=== PATIENT | female | born 1945 | race Caucasian/White ===

== ENCOUNTER → 2016-09-18 | Outpatient (CLI) | payer MEDICARE ==
--- NOTE | 2016-09-18 10:06 | US ---
EXAMINATION TYPE: US abdomen complete DATE OF EXAM: 09/18/2016 COMPARISON: NONE CLINICAL HISTORY: R10.10 upper Abd Pain, Cramp/spasm R25.2. Abd Pain Patient not NPO had coffee in [place]. EXAM MEASUREMENTS: Liver Length: 14.2 cm Gallbladder Wall: 0.27 cm CBD: 0.46 cm Spleen: 12.6 cm Right Kidney: 8.1 x 4.0 x 4.8 cm Left Kidney: 9.4 x 4.2 x 4.7 cm Pancreas: Tail obscured by overlying bowel gas Liver: Increased attenuation Gallbladder: wnl Evidence for sonographic Jensen's sign: No CBD: wnl Spleen: wnl Right Kidney: No hydronephrosis or masses seen Left Kidney: Cystic area seen upper pole= 2.3 x 1.9 x 2.4 cm.l Upper IVC: wnl Abd Aorta: wnl Limited views of the pancreas are unremarkable. The liver is normal in size. There is slight increased attenuation. I could not exclude some fatty in filtration. The gallbladder is unremarkable without evidence of cholelithiasis. The gallbladder wall measures 2.7 mm. The distal common hepatic duct measures 4.6 mm. There is no evidence of a sonographic Jensen's s ign. There is a hypoechoic 2.3 cm lesion in the upper pole of the left kidney. This does not meet the requ irements of simple cyst. The right kidney is normal. Visualized portions of aorta and IVC are normal. IMPRESSION: 1. I CANNOT EXCLUDE SOME FATTY INFILTRATION OF THE LIVER. 2. 2 CM LESION IN THE UPPER POLE LEFT KIDNEY DOES NOT MEET THE REQUIREMENTS OF A SIMPLE CYST. FURTHER IMAGING WITH CT OR MR WOULD BE SUGGESTED.
--- NOTE | 2016-09-19 10:46 | P.ARTDOP ---
Arterial Doppler LOWER EXTREMITY ARTERIAL DOPPLER: DATE OF SERVICE: 09/18/2016 Reason for study: Bilateral leg cramps. Doppler waveforms: Multiphasic bilaterally throughout Pulse volume recording: Normal configuration. Pressure gradients: None. Ankle-brachial indices: Greater than 1 bilaterally. Toe pressures: 114 on the right, 118 on the left Impression: normal study.
== END | disposition home or self-care (01) ==
LOC: RADUSWWP 07:55
PROVIDERS: ATTEND Family Medicine
DX: N28.9 Disorder of kidney and ureter, unspecified (principal); R25.2 Cramp and spasm; R10.10 Upper abdominal pain, unspecified
CPT/HCPCS: 76700; 93923

== ENCOUNTER → 2016-09-25 | Outpatient (CLI) | payer MEDICARE ==
--- NOTE | 2016-09-25 15:15 | NM ---
EXAMINATION TYPE: NM hepatobiliary w EF DATE OF EXAM: 09/25/2016 COMPARISON: NONE HISTORY: Upper abdominal pain TECHNIQUE: After the intravenous administration of 5.1 mCi Tc 99m Mebrofenin hepatobiliary scintigrap hy is performed. Immediate images post injection. FINDINGS: There is satisfactory initial accumulation of tracer by the liver. The gallbladder is visualized wit hin 22 minutes. The small bowel activity is noted within 12 minutes. At one hour 8 ounces of oral e nsure plus is given to mimic CCK and gallbladder ejection fraction is calculated at 89 %, above joni l. Therefore there is no scintigraphic evidence of cystic or common bile duct obstruction to suggest acute cholecystitis or gallbladder dyskinesia. IMPRESSION: HYPERCONTRACTILITY OF THE GALLBLADDER.
== END | disposition home or self-care (01) ==
LOC: RADNMMAIN 12:27
PROVIDERS: ATTEND Family Medicine
DX: K82.8 Other specified diseases of gallbladder (principal)
CPT/HCPCS: 78226; A9537

== ENCOUNTER 2016-10-31 07:25 | Day surgery (SDC) | payer MEDICARE ==
[~2016-10-31 07:25] MED LIST: LACTATED RINGERS 1,000 ML IV SCH; LIDOCAINE 1% 20 ML VIAL (10MG/ML) FOR IV START INTRADERMA PRN
[2016-10-31 07:53] VITALS: RESP 16; TEMP 97.2
[2016-10-31] MEDS ORDERED: PROPOFOL 10 MG/ML 20 ML VIAL IV ONE (08:50)
--- NOTE | 2016-10-31 08:58 | P.PCN ---
Date of Procedure: 10/31/16 Preoperative Diagnosis: Postoperative Diagnosis: Procedure(s) Performed: BRIEF HISTORY: Patient is a 71-year-old, pleasant, white female, scheduled for an upper endoscopy as part of evaluation of anemia. She does complain of occasional heartburn but denies any abdominal pain. No nausea vomiting. Her last colonoscopy in December 2014 showed a small polyp. PROCEDURE PERFORMED: Esophagogastroduodenoscopy with biopsy. PREOPERATIVE DIAGNOSIS: Anemia rule out celiac disease. IV sedation per anesthesia. PROCEDURE: After informed consent was obtained, the patient was brought into the endoscopy unit. IV sedation was administered by Anesthesia under continuous monitoring. Initially the Olympus GIF-140 video endoscope was inserted into the mouth. Esophagus intubated without any difficulty. It was gradually advanced into the stomach and duodenum and carefully examined. The bulb and the second part of the duodenum appeared normal. Biopsies were done from the duodenum to rule out celiac disease. The scope at this time was withdrawn to the stomach, adequately insufflated with air, and upon careful examination, mucosa of the antrum, mild gastritis and biopsies were done from this area. The body, cardia and the fundus appeared normal. The scope was then withdrawn into the esophagus. The GE junction was located at 39 cm from the incisors. The esophagus appeared normal. There were no erosions or ulcerations seen, however there were grade 1/2 distal esophageal varices and the patient tolerated the procedure well. IMPRESSION: 1. Mild antral gastritis. 2. Grade 1/2 mid and distal esophageal varices. RECOMMENDATIONS: The findings of this examination were discussed with the patient as well as a family. She was advised to follow with the biopsy results. She needs to be investigated for underlying chronic liver disease because of the presence of esophageal varices. Implants: Indications for Procedure: Operative Findings: Description of Procedure:
[2016-10-31 09:15] VITALS: BP 146/74; PULSE 68
== END 2016-10-31 09:38 | disposition home or self-care (01) ==
LOC: ORWHC2ENDO 07:25
PROVIDERS: ATTEND Internal Medicine Gastroenterology
DX: K29.50 Unspecified chronic gastritis without bleeding (principal); I85.00 Esophageal varices without bleeding; D64.9 Anemia, unspecified; I10 Essential (primary) hypertension; G62.9 Polyneuropathy, unspecified; F17.200 Nicotine dependence, unspecified, uncomplicated; Z79.899 Other long term (current) drug therapy
CPT/HCPCS: 88305; 88342; 43239; J2704

== ENCOUNTER → 2017-09-19 | Outpatient (CLI) | payer MEDICARE ==
--- NOTE | 2017-09-19 18:00 | US ---
EXAMINATION TYPE: US venous doppler duplex LE LT DATE OF EXAM: 09/19/2017 5:49 PM COMPARISON: NONE CLINICAL HISTORY: M79.662. Pt states left leg pain SIDE PERFORMED: Left TECHNIQUE: The lower extremity deep venous system is examined utilizing real time linear array sonog srikanth with graded compression, doppler sonography and color-flow sonography. VESSELS IMAGED: External Iliac Vein (EIV) Common Femoral Vein Deep Femoral Vein Greater Saphenous Vein * Femoral Vein Popliteal Vein Small Saphenous Vein * Proximal Calf Veins (* superficial vessels) Left Leg: Negative for DVT IMPRESSION: Negative exam. No evidence of deep venous thrombosis in the left leg.
--- NOTE | 2017-09-20 07:50 | CT ---
EXAMINATION TYPE: CT abdomen pelvis w con DATE OF EXAM: 09/19/2017 HISTORY: Right upper quadrant abdominal pain. CT DLP: 604.8mGycm Automated Exposure Control for Dose Reduction was Utilized. CONTRAST: CT scan of the abdomen and pelvis is performed with IV Contrast, patient injected with 100ml mL of Is ovue M300. COMPARISON: Complete abdominal ultrasound September 18, 2016 FINDINGS: LUNG BASES: There is calcification at level of mitral valve. There is coronary artery calcification a nd/or stent in the RCA distribution. LIVER/GB: Liver is slightly diminished in size with lobulated peripheral nodular contour, findings ar e consistent with underlying cirrhosis. Main portal vein is patent and not dilated. No surrounding as cites is present currently. PANCREAS: There is vertical linear density mid pancreatic head could reflect sutures or calcification seen best coronal image 34, similar finding is seen in the mid body just superior to the splenic vei n of uncertain etiology. Perhaps small vascular calcification. SPLEEN: Spleen is upper limits of normal in size. ADRENALS: No significant abnormality is seen. KIDNEYS: There is 4 mm calculus right kidney mid to lower pole level coronal image 56. There is 2.7 c m simple appearing cyst anteriorly upper to mid pole level left kidney image 31. BOWEL: Oral contrast reaches level of mid sigmoid colon. There is no suspicious small or large bowel dilatation. UTERUS/ADNEXA: Uterus is surgically absent or markedly atrophic. LYMPH NODES: No greater than 1cm abdominal or pelvic lymph nodes are appreciated. OSSEOUS STRUCTURES: There is moderate axial joint space loss in both hips. Osseous structures are dem ineralized. There is levoconvex scoliosis centered in the upper lumbar spine. There is multilevel fac et arthropathy in the mid to lower lumbar spine. OTHER: There is moderate to severe calcified plaque of aorta extending into branch vessels. IMPRESSION: 1. No significant acute finding is seen to account for patient's clinical symptoms. 2. Underlying cirrhosis is now present. Clinical and lab correlation advised. 3. A simple appearing 2.7 cm cyst upper pole level left kidney is confirmed on CT.
== END | disposition home or self-care (01) ==
LOC: RADCTMAIN 16:57
PROVIDERS: ATTEND Family Medicine
DX: M79.662 Pain in left lower leg (principal); R10.9 Unspecified abdominal pain
CPT/HCPCS: 82565; 84520; 93971; 74177; 36415; Q9967

== ENCOUNTER 2017-11-07 16:11 | Observation (INO) | payer MEDICARE ==
[2017-11-07 17:14] LABS: Anisocytosis Slight; HCT 23.7 % (34.0-46.0); Hypochromasia Marked; MCH 24.8 pg (25.0-35.0); MCHC 29.7 g/dL (31.0-37.0); MCV 83.4 fL (80.0-100.0); Platelet Count 109 k/uL (150-450); Poikilocytosis Slight; RBC 2.84 m/uL (3.80-5.40); RDW 17.5 % (11.5-15.5); WBC 5.3 k/uL (3.8-10.6)
[2017-11-07 17:24] LABS: Albumin 3.3 g/dL (3.5-5.0); Calcium 8.7 mg/dL (8.4-10.2); INR 1.1 (<1.2); Partial Thromboplastin Time 24.5 sec (22.0-30.0); Potassium 4.2 mmol/L (3.5-5.1); Prothrombin Time 10.9 sec (9.0-12.0); Total Bilirubin 0.4 mg/dL (0.2-1.3); Total Protein 7.2 g/dL (6.3-8.2)
[2017-11-07 18:10] LABS: Band Neutrophils % 1 %; Lymphocytes # (M) 0.64 k/uL (1.0-4.8); Monocytes # (M) 0.05 k/uL (0-1.0); Neutrophils % (M) 86 %; Nucleated Red Blood Cells 0 /100 WBC (0-0); Poikilocytosis (M) Present; Polychromasia Present; Target Cells Present; Total Cells Counted 100
[2017-11-07 18:11] LABS: Large Platelets Present
[2017-11-07] MEDS ORDERED: NALOXONE 0.4 MG/ML 1 ML VIAL IV PRN (18:24)
[2017-11-07] MEDS ORDERED: ONDANSETRON 4 MG/2 ML VIAL IVP PRN (18:24)
[2017-11-07] MEDS ORDERED: ACETAMINOPHEN TAB 325 MG TAB PO PRN (18:24)
--- NOTE | 2017-11-07 18:24 | ED ---
General Adult HPI - General Chief complaint: Recheck/Abnormal Lab/Rx Stated complaint: LOW HEMOGLOBIN Time Seen by Provider: 11/07/17 16:56 Source: patient Mode of arrival: ambulatory Limitations: no limitations - History of Present Illness Initial comments: 72e years old female stated that she had a cancer fever SHE had a surgery in [place] when today she had a call from Dr. Macias come to the ER and get some blood transfusion hemoglobin and ER was 7 she denies any headaches no chest pain or shortness of breath no abdominal pain no frequency urgency dysuria. She denies any black tarry stools and she stated she do not rectal exam - Related Data Home Medications Medication Instructions Recorded Confirmed Cholecalciferol [Vitamin D3] 5,000 unit PO DAILY 10/29/16 11/07/17 Ferrous Sulfate [Feosol] 325 mg PO DAILY 10/29/16 11/07/17 traMADol HCL [Ultram] 50 mg PO QID PRN 10/29/16 11/07/17 traZODone HCL 100 mg PO HS 10/29/16 11/07/17 Donepezil [Aricept] 10 mg PO HS 11/07/17 11/07/17 Gabapentin 1,600 mg PO HS 11/07/17 11/07/17 Gabapentin 800 mg PO QAM 11/07/17 11/07/17 Levothyroxine Sodium [Synthroid] 25 mcg PO DAILY 11/07/17 11/07/17 Omeprazole [PriLOSEC] 40 mg PO DAILY 11/07/17 11/07/17 Allergies Allergy/AdvReac Type Severity Reaction Status Date / Time No Known Allergies Allergy Verified 11/07/17 17:21 Review of Systems ROS Statement: Those systems with pertinent positive or pertinent negative responses have been documented in the HPI. ROS Other: All systems not noted in ROS Statement are negative. Past Medical History Past Medical History: Cancer, CVA/TIA, Diabetes Mellitus, GERD/Reflux, Hyperlipidemia, Hypertension, Osteoarthritis (OA) Additional Past Medical History / Comment(s): hx. uterine cancer, chemo 6-7 mos. ago, TIA several yrs. ago-forgetful, neuropathy feet & legs & hands, diet controlled diabetic History of Any Multi-Drug Resistant Organisms: None Reported Past Surgical History: Hysterectomy, Tonsillectomy Additional Past Surgical History / Comment(s): hysterectomy Past Anesthesia/Blood Transfusion Reactions: No Reported Reaction Past Psychological History: Anxiety, Depression Smoking Status: Current some day smoker General Exam - General Exam Comments Initial Comments: General: The patient is awake and alert, in no distress, and does not appear acutely ill. Skin: Skin is warm and dry and no rashes or lesions are noted. Eye: Pupils are equal, round and reactive to light, extra-ocular movements are intact; there is normal conjunctiva bilaterally. Ears, nose, mouth and throat: There are moist mucous membranes and no oral lesions. Neck: The neck is supple, there is no tenderness or JVD. Cardiovascular: There is a regular rate and rhythm. No murmur, rub or gallop is appreciated. Respiratory: To auscultation bilateral, no wheezing no rhonchi no distress respiratory cummins noticed Gastrointestinal: Soft, non-distended, non-tender abdomen without masses or organomegaly noted. There is no rebound or guarding present. Bowel sounds are unremarkable. She refused the rectal exam Back: There is no tenderness to palpation in the midline. There is no obvious deformity. Musculoskeletal: Normal ROM, no tenderness, There is no pedal edema. There is no calf tenderness or swelling. No cords were appreciated. Neurological: CN II-XII intact, Cranial nerves III through XII are intact. There are no obvious motor or sensory deficits. Coordination appears grossly intact. Speech is normal. Psychiatric: Cooperative, appropriate mood & affect, normal judgment. Limitations: no limitations Course Vital Signs 11/07/17 16:14 Temperature 98.6 F Pulse Rate 94 Respiratory 18 Rate Blood Pressure 140/51 O2 Sat by Pulse 96 Oximetry Hemoglobin is 7 chemistries are normal she be getting Protonix 40 mg twice a day Dr. Walker be consulted Medical Decision Making - Lab Data Result diagrams: 11/07/17 16:57 11/07/17 17:00 Lab Results 11/07/17 11/07/17 11/07/17 Range/Units 16:57 17:00 17:00 WBC 5.3 (3.8-10.6) k/uL RBC 2.84 L (3.80-5.40) m/uL Hgb 7.0 L* (11.4-16.0) gm/dL Hct 23.7 L (34.0-46.0) % MCV 83.4 (80.0-100.0) fL MCH 24.8 L (25.0-35.0) pg MCHC 29.7 L (31.0-37.0) g/dL RDW 17.5 H (11.5-15.5) % Plt Count 109 L (150-450) k/uL Neutrophils % (Manual) 86 % Band Neutrophils % 1 % Lymphocytes % (Manual) 12 % Monocytes % (Manual) 1 % Neutrophils # (Manual) 4.60 (1.3-7.7) k/uL Lymphocytes # (Manual) 0.64 L (1.0-4.8) k/uL Monocytes # (Manual) 0.05 (0-1.0) k/uL Nucleated RBCs 0 (0-0) /100 WBC Manual Slide Review Performed Large Platelets Present Polychromasia Present Hypochromasia Marked Poikilocytosis Slight Poikilocytosis (manual Present Anisocytosis Slight Target Cells Present PT 10.9 (9.0-12.0) sec INR 1.1 (<1.2) APTT 24.5 (22.0-30.0) sec Sodium 140 (137-145) mmol/L Potassium 4.2 (3.5-5.1) mmol/L Chloride 111 H (98-107) mmol/L Carbon Dioxide 21 L (22-30) mmol/L Anion Gap 8 mmol/L BUN 12 (7-17) mg/dL Creatinine 0.90 (0.52-1.04) mg/dL Est GFR (CKD-EPI)AfAm 73 (>60 ml/min/1.73 sqM) Est GFR (CKD-EPI)NonAf 64 (>60 ml/min/1.73 sqM) Glucose 117 H (74-99) mg/dL Calcium 8.7 (8.4-10.2) mg/dL Total Bilirubin 0.4 (0.2-1.3) mg/dL AST 21 (14-36) U/L ALT 20 (9-52) U/L Alkaline Phosphatase 79 (38-126) U/L Total Protein 7.2 (6.3-8.2) g/dL Albumin 3.3 L (3.5-5.0) g/dL Blood Type Blood Type Recheck Antibody Screen Spec Expiration Date 11/07/17 Range/Units 17:00 WBC (3.8-10.6) k/uL RBC (3.80-5.40) m/uL Hgb (11.4-16.0) gm/dL Hct (34.0-46.0) % MCV (80.0-100.0) fL MCH (25.0-35.0) pg MCHC (31.0-37.0) g/dL RDW (11.5-15.5) % Plt Count (150-450) k/uL Neutrophils % (Manual) % Band Neutrophils % % Lymphocytes % (Manual) % Monocytes % (Manual) % Neutrophils # (Manual) (1.3-7.7) k/uL Lymphocytes # (Manual) (1.0-4.8) k/uL Monocytes # (Manual) (0-1.0) k/uL Nucleated RBCs (0-0) /100 WBC Manual Slide Review Large Platelets Polychromasia Hypochromasia Poikilocytosis Poikilocytosis (manual Anisocytosis Target Cells PT (9.0-12.0) sec INR (<1.2) APTT (22.0-30.0) sec Sodium (137-145) mmol/L Potassium (3.5-5.1) mmol/L Chloride (98-107) mmol/L Carbon Dioxide (22-30) mmol/L Anion Gap mmol/L BUN (7-17) mg/dL Creatinine (0.52-1.04) mg/dL Est GFR (CKD-EPI)AfAm (>60 ml/min/1.73 sqM) Est GFR (CKD-EPI)NonAf (>60 ml/min/1.73 sqM) Glucose (74-99) mg/dL Calcium (8.4-10.2) mg/dL Total Bilirubin (0.2-1.3) mg/dL AST (14-36) U/L ALT (9-52) U/L Alkaline Phosphatase (38-126) U/L Total Protein (6.3-8.2) g/dL Albumin (3.5-5.0) g/dL Blood Type O Positive Blood Type Recheck No Antibody Screen NEGATIVE Spec Expiration Date 11/10/2017 - 230 Disposition Clinical Impression: Anemia Disposition: ADMITTED IP TO THIS [facility] Condition: Good Referrals: Kiersten Macias MD [Primary Care Provider] - 1-2 days
[2017-11-07] MEDS ORDERED: traMADol 50 MG TAB PO PRN (18:28)
[2017-11-07 20:49] VITALS: BMI 24.7
[2017-11-07] MEDS ORDERED: traZODone HCL 100 MG TAB PO SCH (21:00)
[2017-11-07] MEDS ORDERED: GABAPENTIN 400 MG CAP PO SCH (21:00)
[2017-11-07] MEDS ORDERED: DONEPEZIL 10 MG TAB PO SCH (21:00)
[2017-11-07] MEDS: SODIUM CHLORIDE 0.9% 1,000 ML IV SCH (21:34)
[2017-11-07] MEDS: NICOTINE 21MG/24HR PATCH TRANSDERM SCH (21:34)
[2017-11-07] MEDS: PANTOPRAZOLE 40 MG/10 ML VIAL IV SCH (23:32)
[2017-11-08] MEDS ORDERED: LEVOTHYROXINE 25 MCG TAB PO SCH (06:30)
[2017-11-08 07:26] LABS: Anisocytosis Slight; Hypochromasia Marked; MCH 27.1 pg (25.0-35.0); MCHC 31.7 g/dL (31.0-37.0); MCV 85.5 fL (80.0-100.0); Mean Platelet Volume 10.2; Platelet Count 74 k/uL (150-450); Poikilocytosis Marked; RBC 2.28 m/uL (3.80-5.40); RDW 16.9 % (11.5-15.5); WBC 2.9 k/uL (3.8-10.6)
[2017-11-08 07:27] LABS: Albumin 2.6 g/dL (3.5-5.0); Calcium 8.3 mg/dL (8.4-10.2); Potassium 4.2 mmol/L (3.5-5.1); Total Bilirubin 0.7 mg/dL (0.2-1.3); Total Protein 5.8 g/dL (6.3-8.2)
[2017-11-08 07:28] LABS: HGB 6.2 gm/dL (11.4-16.0)
[2017-11-08 07:30] LABS: HCT 19.5 % (34.0-46.0)
[2017-11-08 08:27] LABS: Lymphocytes # (M) 0.67 k/uL (1.0-4.8); Monocytes # (M) 0.26 k/uL (0-1.0); Neutrophils # (M) 1.97 k/uL (1.3-7.7); Neutrophils % (M) 68 %; Nucleated Red Blood Cells 0 /100 WBC (0-0); Total Cells Counted 100
[2017-11-08 08:30] LABS: Polychromasia Present
[2017-11-08] MEDS: PANTOPRAZOLE 40 MG/10 ML VIAL IV SCH (08:44)
[2017-11-08] MEDS: NICOTINE 21MG/24HR PATCH TRANSDERM SCH (08:45)
[2017-11-08] MEDS: SODIUM CHLORIDE 0.9% 1,000 ML IV SCH (08:45)
[2017-11-08] MEDS ORDERED: CHOLECALCIFEROL 1,000 UNIT TAB PO SCH (09:00)
[2017-11-08] MEDS ORDERED: FERROUS SULFATE 325 MG TAB PO SCH (09:00)
[2017-11-08] MEDS ORDERED: GABAPENTIN 400 MG CAP PO SCH (09:00)
[2017-11-08] MEDS ORDERED: NON-FORMULARY DRUG (Omeprazole 40 MG) PO SCH (09:00)
--- NOTE | 2017-11-08 09:55 | P.CONS ---
History of Present Illness - Reason for Consult Consult date: 11/08/17 anemia - History of Present Illness 72-year-old female with a history of uterine carcinoma about 4-5 years ago status post chemoradiation, remote EtOH abuse in her 20s no active drinking, cirrhosis, esophageal varices, and anemia. Patient has been feeling more weak fatigue x 1 month without chest pain or overt bleeding; denies hematemesis hematochezia or melena. No fevers. Denies abdominal pain. Admission hemoglobin 7 presently 6.2. MCV 83. Platelet 109 presently 74. INR 1.1. BUN 12. Creatinine 0.9. LFTs normal. 2 units of blood ordered. Review of Systems Constitutional: Denies fever, chills, sweats, weight gain, or loss. Fatigue. HEENT: Negative for migraines, blurred vision or loss, earaches, drainage, tinnitus, oral mucosal lesions, dysphagia, or odynophagia. CARDIAC: Negative for chest pain, arrhythmias, or palpitation. RESPIRATORY: Negative for shortness of breath, hemoptysis, cough, or sputum production. GI: See HPI for pertinent findings. : Negative for hematuria, urgency, frequency, polyuria, or dysuria. GYNc: Negative vaginal discharge. MUSCULOSKELETAL: Negative for muscle aches, swelling, arthritis, and arthralgias. NEUROLOGIC: Negative for stroke or TIA. ENDOCRINE: Negative for thyroid problems. SKIN: Negative for rash or itching. PSYCHIATRIC: Negative history for depression and anxiety Past Medical History Past Medical History: Cancer, CVA/TIA, Diabetes Mellitus, GERD/Reflux, Hyperlipidemia, Hypertension, Osteoarthritis (OA) Additional Past Medical History / Comment(s): hx. uterine cancer, chemo 4 years ago, TIA several yrs. ago-forgetful, neuropathy feet & legs & hands, diet controlled diabetic History of Any Multi-Drug Resistant Organisms: None Reported Past Surgical History: Hysterectomy, Tonsillectomy Additional Past Surgical History / Comment(s): hysterectomy Past Anesthesia/Blood Transfusion Reactions: No Reported Reaction Past Psychological History: Anxiety, Depression Smoking Status: Current some day smoker Past Alcohol Use History: None Reported Past Drug Use History: None Reported - Past Family History Mother Family Medical History: Cancer Father Family Medical History: Cancer Brother(s) Family Medical History: Cancer Medications and Allergies Home Medications Medication Instructions Recorded Confirmed Type Cholecalciferol [Vitamin D3] 5,000 unit PO DAILY 10/29/16 11/07/17 History Ferrous Sulfate [Feosol] 325 mg PO DAILY 10/29/16 11/07/17 History traMADol HCL [Ultram] 50 mg PO QID PRN 10/29/16 11/07/17 History traZODone HCL 100 mg PO HS 10/29/16 11/07/17 History Donepezil [Aricept] 10 mg PO HS 11/07/17 11/07/17 History Gabapentin 1,600 mg PO HS 11/07/17 11/07/17 History Gabapentin 800 mg PO QAM 11/07/17 11/07/17 History Levothyroxine Sodium [Synthroid] 25 mcg PO DAILY 11/07/17 11/07/17 History Omeprazole [PriLOSEC] 40 mg PO DAILY 11/07/17 11/07/17 History Allergies Allergy/AdvReac Type Severity Reaction Status Date / Time latex AdvReac Unknown Verified 11/07/17 23:13 Physical Exam Vitals: Vital Signs Temp Pulse Pulse Resp BP BP Pulse Ox 11/08/17 09:16 97.9 F 76 18 157/72 96 11/08/17 09:06 98.1 F 76 16 148/71 97 11/08/17 07:26 97.7 F 86 16 160/63 99 11/08/17 07:09 97 11/08/17 00:23 98.4 F 71 18 133/75 97 11/07/17 23:39 98.7 F 77 16 136/72 92 L 11/07/17 21:15 98.3 F 79 18 153/52 94 L 11/07/17 20:45 97.8 F 77 18 132/68 93 L 11/07/17 20:37 97.1 F L 82 16 151/68 98 11/07/17 20:35 98.8 F 77 18 126/55 11/07/17 19:15 98.4 F 87 15 147/66 98 11/07/17 16:14 98.6 F 94 18 140/51 96 Intake and Output 11/07/17 11/08/17 11/08/17 22:59 06:59 14:59 Intake Total 370 910 240 Balance 370 910 240 Intake: IV 250 blood 250 Intake, IV Titration 600 Amount Sodium Chloride 0.9% 1, 600 000 ml @ 75 mls/hr IV . [id number] [facility] Rx#:[id number] Oral 120 240 Blood Product 0 310 0 Rc As-1 Unit 0 [id number] Rc Pheresis 2 As3 Unit 0 310 [id number] Other: Voiding Method Toilet # Voids 2 1 Weight 65.317 kg General appearance: The patient is alert, oriented, in no acute distress. HET: Head is normocephalic and atraumatic. Pupils are equal and reactive. Oropharynx is clear without lesions. Neck: Supple without lymphadenopathy. Trachea midline. Heart: S1 S2. Regular rate and rhythm. Lungs: No crackles or wheezes are heard. Abdomen: Soft, nontender, nondistended with bowel sounds. No peritoneal signs. No palpable organomegaly or masses. Extremities: Normal skin color and turgor. No cyanosis, rash, ulceration, clubbing, or edema. Radial and pedal pulses are 2/4 bilaterally. Neurological: No focal deficits. Strength and sensation are grossly intact. Results CBC & Chem 7: 11/08/17 06:31 11/08/17 06:31 Labs: Abnormal Lab Results - Last 24 Hours (Table) 11/07/17 11/07/17 11/07/17 Range/Units 16:57 17:00 17:00 WBC (3.8-10.6) k/uL RBC 2.84 L (3.80-5.40) m/uL Hgb 7.0 L* (11.4-16.0) gm/dL Hct 23.7 L (34.0-46.0) % MCH 24.8 L (25.0-35.0) pg MCHC 29.7 L (31.0-37.0) g/dL RDW 17.5 H (11.5-15.5) % Plt Count 109 L (150-450) k/uL Lymphocytes # (Manual) 0.64 L (1.0-4.8) k/uL Chloride 111 H (98-107) mmol/L Carbon Dioxide 21 L (22-30) mmol/L Glucose 117 H (74-99) mg/dL Calcium (8.4-10.2) mg/dL Total Protein (6.3-8.2) g/dL Albumin 3.3 L (3.5-5.0) g/dL Crossmatch See Detail 11/08/17 11/08/17 Range/Units 06:31 06:31 WBC 2.9 L (3.8-10.6) k/uL RBC 2.28 L (3.80-5.40) m/uL Hgb 6.2 L* (11.4-16.0) gm/dL Hct 19.5 L* (34.0-46.0) % MCH (25.0-35.0) pg MCHC (31.0-37.0) g/dL RDW 16.9 H (11.5-15.5) % Plt Count 74 L (150-450) k/uL Lymphocytes # (Manual) 0.67 L (1.0-4.8) k/uL Chloride 113 H (98-107) mmol/L Carbon Dioxide (22-30) mmol/L Glucose (74-99) mg/dL Calcium 8.3 L (8.4-10.2) mg/dL Total Protein 5.8 L (6.3-8.2) g/dL Albumin 2.6 L (3.5-5.0) g/dL Crossmatch Assessment and Plan (1) Anemia Narrative/Plan: Possible component of acute blood loss anemia Current Visit: Yes Status: Acute Code(s): D64.9 - ANEMIA, UNSPECIFIED SNOMED Code(s): 793990579 (2) Liver cirrhosis Current Visit: Yes Status: Acute Code(s): K74.60 - UNSPECIFIED CIRRHOSIS OF LIVER SNOMED Code(s): 60463878 (3) Esophageal varices determined by endoscopy Current Visit: Yes Status: Acute Code(s): I85.00 - ESOPHAGEAL VARICES WITHOUT BLEEDING SNOMED Code(s): 11019535 (4) Thrombocytopenia Current Visit: Yes Status: Acute Code(s): D69.6 - THROMBOCYTOPENIA, UNSPECIFIED SNOMED Code(s): 868262616 Plan: 1. Inpatient EGD colonoscopy discussed however patient desires to have it performed as an outpatient and only with Dr. Calloway; Dr. Calloway is not available at this time. We'll proceed with EGD colonoscopy Saturday next week with Dr. Calloway if agreeable with attending service. 2. Iron indices. 3. CBC monitoring. We'll follow with you. Thank you for this kind referral and the opportunity to participate in the care of your patient. This consultation was discussed with Dr. Oconnell. The impression and plan of care have been directed as dictated.
[2017-11-08 14:12] VITALS: BP 148/68; PULSE 81; RESP 16; TEMP 98.4
--- NOTE | 2017-11-08 14:17 | P.HPIM ---
History of Present Illness H&P Date: 11/08/17 (This document was also both his H&P and discharge summary) 72 years old female patient of Dr. Macias with past medical history of uterine carcinoma diagnosed for 5 years ago status post chemoradiation, history of remote alcohol abuse in her 20s no active drinking, history of alcohol-induced cirrhosis, esophageal varices and anemia. Patient was seen as outpatient on Saturday by Dr. Macias who did blood work with her hemoglobin came back as 5.6. Patient was brought back to the clinic and hemoglobin was redrawn hemoglobin on admission was 7. Patient denies any history of dark tarry stool, any hematemesis, hematochezia. Patient denies any dizziness, palpitation or abdominal pain. Patient states she is chronically anemic and feels fatigued but denies any other symptoms. She states she just came to the ER for transfusion but was admitted for further workup. She has had endoscopy 1 year ago had colonoscopy a few years ago by Dr. Walker and has a follow-up appointment with her next Saturday for an endoscopy. Labs obtained suggest a hemoglobin of 7 on admission hematocrit 23.7, platelet 109, INR 1.1, AST ALT within normal limits, alkaline phosphatase 70. Patient received 1 unit of PRBC in the ER. Repeat hemoglobin this morning is 6.2 status post 1 unit of PRBC this morning. Repeat hemoglobin pending. Patient would like to follow with Dr. Walker as outpatient and would like to be discharged as she is asymptomatic. Review of Systems Constitutional: Denies chills, Denies fever, Denies lethargy, Denies malaise, Denies poor appetite, Denies weakness, Denies weight loss Eyes: denies decreased vision, denies diplopia, denies discharge, denies pain Ears: deny: decreased hearing Ears, nose, mouth and throat: Denies dental pain, Denies headache, Denies nasal discharge, Denies nose pain Cardiovascular: Denies chest pain, Denies decreased exercise tolerance, Denies edema, Denies high blood pressure, Denies irregular heart beat, Denies palpitations, Denies paroxysmal nocturnal dyspnea, Denies rapid heart beat, Denies shortness of breath Respiratory: Denies congestion, Denies cough, Denies cough with sputum, Denies dyspnea, Denies home oxygen, Denies wheezing Gastrointestinal: Denies abdominal pain, Denies change in bowel habits, Denies coffee ground emesis, Denies early satiety, Denies excessive gas, Denies heartburn, Denies hematemesis, Denies hematochezia, Denies loss of appetite, Denies nausea, Denies vomiting Genitourinary: Denies dysuria, Denies flank pain, Denies kidney stones, Denies menorrhagia, Denies urgency, Denies urinary frequency Musculoskeletal: Denies gait dysfunction, Denies limitation of motion, Denies morning stiffness, Denies muscle cramps Integumentary: Denies rash, Denies wounds, Denies brittle nails, Denies change in hair/nails, Denies darkening of skin Neurological: Denies balance difficulties, Denies change in speech, Denies double vision, Denies gait dysfunction, Denies loss of vision, Denies motor disturbance, Denies numbness, Denies paralysis, Denies paresthesias, Denies seizures Psychiatric: Denies anxiety, Denies depression Endocrine: Denies excessive sweating, Denies excessive thirst, Denies high blood sugars, Denies palpitations Hematologic/Lymphatic: Denies easy bruising, Denies lymphadenopathy Past Medical History Past Medical History: Cancer, CVA/TIA, Diabetes Mellitus, GERD/Reflux, Hyperlipidemia, Hypertension, Osteoarthritis (OA) Additional Past Medical History / Comment(s): hx. uterine cancer, chemo 4 years ago, TIA several yrs. ago-forgetful, neuropathy feet & legs & hands, diet controlled diabetic History of Any Multi-Drug Resistant Organisms: None Reported Past Surgical History: Hysterectomy, Tonsillectomy Additional Past Surgical History / Comment(s): hysterectomy Past Anesthesia/Blood Transfusion Reactions: No Reported Reaction Past Psychological History: Anxiety, Depression Smoking Status: Current some day smoker Past Alcohol Use History: None Reported Past Drug Use History: None Reported - Past Family History Mother Family Medical History: Cancer Father Family Medical History: Cancer Brother(s) Family Medical History: Cancer Medications and Allergies Home Medications Medication Instructions Recorded Confirmed Type Cholecalciferol [Vitamin D3] 5,000 unit PO DAILY 10/29/16 11/07/17 History Ferrous Sulfate [Feosol] 325 mg PO DAILY 10/29/16 11/07/17 History traMADol HCL [Ultram] 50 mg PO QID PRN 10/29/16 11/07/17 History traZODone HCL 100 mg PO HS 10/29/16 11/07/17 History Donepezil [Aricept] 10 mg PO HS 11/07/17 11/07/17 History Gabapentin 1,600 mg PO HS 11/07/17 11/07/17 History Gabapentin 800 mg PO QA 11/07/17 11/07/17 History Levothyroxine Sodium [Synthroid] 25 mcg PO DAILY 11/07/17 11/07/17 History Omeprazole [PriLOSEC] 40 mg PO DAILY 11/07/17 11/07/17 History Carvedilol [Coreg] 6.25 mg PO BID #60 tablet 11/08/17 Rx Nicotine 21Mg/24Hr Patch [Habitrol] 1 patch TRANSDERM DAILY #30 patch 11/08/17 Rx Allergies Allergy/AdvReac Type Severity Reaction Status Date / Time latex AdvReac Unknown Verified 11/07/17 23:13 Physical Exam Vitals: Vital Signs Temp Pulse Pulse Resp BP BP Pulse Ox 11/08/17 12:59 97.5 F L 72 18 171/65 96 11/08/17 09:46 97.8 F 76 16 145/49 98 11/08/17 09:16 97.9 F 76 18 157/72 96 11/08/17 09:06 98.1 F 76 16 148/71 97 11/08/17 07:26 97.7 F 86 16 160/63 99 11/08/17 07:09 97 11/08/17 00:23 98.4 F 71 18 133/75 97 11/07/17 23:39 98.7 F 77 16 136/72 92 L 11/07/17 21:15 98.3 F 79 18 153/52 94 L 11/07/17 20:45 97.8 F 77 18 132/68 93 L 11/07/17 20:37 97.1 F L 82 16 151/68 98 11/07/17 20:35 98.8 F 77 18 126/55 11/07/17 19:15 98.4 F 87 15 147/66 98 11/07/17 16:14 98.6 F 94 18 140/51 96 Intake and Output 11/07/17 11/08/17 11/08/17 22:59 06:59 14:59 Intake Total 370 910 790 Balance 370 910 790 Intake: IV 250 blood 250 Intake, IV Titration 600 Amount Sodium Chloride 0.9% 1, 600 000 ml @ 75 mls/hr IV . [id number] [facility] Rx#:[id number] Oral 120 480 Blood Product 0 310 310 Rc As-1 Unit 310 [id number] Rc Pheresis 2 As3 Unit 0 310 [id number] Other: Voiding Method Toilet # Voids 2 1 Weight 65.317 kg - Constitutional General appearance: cooperative, no acute distress, obese - EENT Eyes: anicteric sclerae, PERRLA, normal appearance ENT: hearing grossly normal - Neck Neck: no lymphadenopathy, normal ROM, no other, no rigidity, no stridor, no thyromegaly - Respiratory Respiratory: bilateral: CTA, negative: diminished, dullness, rales, rhonchi - Cardiovascular Rhythm: regular Heart sounds: normal: S1, S2 Abnormal Heart Sounds: no systolic murmur, no diastolic murmur, no rub, no S3 Gallop, no S4 Gallop, no click, no other - Gastrointestinal General gastrointestinal: normal bowel sounds, soft nontender in all quadrants - Integumentary Integumentary: no rash - Neurologic Neurologic: CNII-XII intact - Musculoskeletal Musculoskeletal: gait normal, strength equal bilaterally - Psychiatric Psychiatric: A&O x's 3, appropriate affect Results CBC & Chem 7: 11/08/17 06:31 11/08/17 06:31 Labs: Abnormal Lab Results - Last 24 Hours (Table) 11/07/17 11/07/17 11/07/17 Range/Units 16:57 17:00 17:00 WBC (3.8-10.6) k/uL RBC 2.84 L (3.80-5.40) m/uL Hgb 7.0 L* (11.4-16.0) gm/dL Hct 23.7 L (34.0-46.0) % MCH 24.8 L (25.0-35.0) pg MCHC 29.7 L (31.0-37.0) g/dL RDW 17.5 H (11.5-15.5) % Plt Count 109 L (150-450) k/uL Lymphocytes # (Manual) 0.64 L (1.0-4.8) k/uL Chloride 111 H (98-107) mmol/L Carbon Dioxide 21 L (22-30) mmol/L Glucose 117 H (74-99) mg/dL Calcium (8.4-10.2) mg/dL Total Protein (6.3-8.2) g/dL Albumin 3.3 L (3.5-5.0) g/dL Crossmatch See Detail 11/08/17 11/08/17 Range/Units 06:31 06:31 WBC 2.9 L (3.8-10.6) k/uL RBC 2.28 L (3.80-5.40) m/uL Hgb 6.2 L* (11.4-16.0) gm/dL Hct 19.5 L* (34.0-46.0) % MCH (25.0-35.0) pg MCHC (31.0-37.0) g/dL RDW 16.9 H (11.5-15.5) % Plt Count 74 L (150-450) k/uL Lymphocytes # (Manual) 0.67 L (1.0-4.8) k/uL Chloride 113 H (98-107) mmol/L Carbon Dioxide (22-30) mmol/L Glucose (74-99) mg/dL Calcium 8.3 L (8.4-10.2) mg/dL Total Protein 5.8 L (6.3-8.2) g/dL Albumin 2.6 L (3.5-5.0) g/dL Crossmatch Thrombosis Risk Factor Assmnt - DVT/VTE Prophylaxis DVT/VTE Prophylaxis: Mechanical Prophylaxis ordered Assessment and Plan Plan: #1 acute GI bleed likely secondary to esophageal varices and cirrhosis. Status post 2 units of PRBC. Repeat hemoglobin pending. Last endoscopy 1 year ago and was found to have large masses. Patient initiated on Coreg for masses prophylaxis. Currently asymptomatic with no episodes of hematemesis. Endoscopy on Saturday with Dr. Walker scheduled. #2 cirrhosis likely alcohol induced. No ascitis no hematemesis but was found to have varices. No encephalopathy on examination #3 acute on chronic normocytic anemia. Acute anemia likely secondary to blood loss from esophageal varices and also could not be ruled out. We'll start patient on Protonix 40 mg by mouth daily. Coreg 6.25 milligrams twice a day for prophylaxis. Continue ferrous sulfate 325 mg by mouth daily Will follow with Dr. Macias as outpatient for repeat transfusion if needed. #4 history of uterine cancer status post chemoradiation in remission #5 history of hyperlipidemia with diet-controlled #6 History of hypertension initiated on Coreg 6.25 twice a day #7 History of diabetes diet-controlled #8 Peripheral neuropathy from chemotherapy on gabapentin 800 mg every morning 1600 mg at bedtime #9 DVT prophylaxis with mechanical SCDs due to GI bleed #10 code status no code #11 disposition patient is discharged today with home with homecare CC a copy of discharge to Dr. Macias
[2017-11-08 14:18] LABS: Anisocytosis Slight; HCT 24.6 % (34.0-46.0); HGB 7.5 gm/dL (11.4-16.0); Hypochromasia Marked; MCH 25.9 pg (25.0-35.0); MCHC 30.5 g/dL (31.0-37.0); Mean Platelet Volume 12.4; Poikilocytosis Marked; RBC 2.89 m/uL (3.80-5.40); RDW 16.9 % (11.5-15.5); WBC 4.3 k/uL (3.8-10.6)
[2017-11-08 14:28] LABS: Platelet Count 71 k/uL (150-450)
[2017-11-08 15:13] LABS: Lymphocytes # (M) 0.65 k/uL (1.0-4.8); Monocytes # (M) 0.26 k/uL (0-1.0); Neutrophils % (M) 79 %; Nucleated Red Blood Cells 0 /100 WBC (0-0); Total Cells Counted 100
[2017-11-08 15:14] LABS: Mixed Population RBC Present
[2017-11-08 18:20] LABS: Iron Saturation 23.01 (12.00-45.00)
== END 2017-11-08 15:42 | disposition home or self-care (01) ==
LOC: EC 16:11 → 3SUR 18:24
PROVIDERS: ADMIT Internal Medicine; ATTEND Internal Medicine
DX: K92.2 Gastrointestinal hemorrhage, unspecified (principal); K74.60 Unspecified cirrhosis of liver; I85.01 Esophageal varices with bleeding; D50.0 Iron deficiency anemia secondary to blood loss (chronic); Z92.3 Personal history of irradiation; Z85.42 Personal history of malignant neoplasm of other parts of uterus; K21.9 Gastro-esophageal reflux disease without esophagitis; E78.5 Hyperlipidemia, unspecified; I10 Essential (primary) hypertension; D69.6 Thrombocytopenia, unspecified; E11.40 Type 2 diabetes mellitus with diabetic neuropathy, unspecified; G62.0 Drug-induced polyneuropathy; T45.1X5A Adverse effect of antineoplastic and immunosuppressive drugs, initial encounter; F41.9 Anxiety disorder, unspecified; F32.9 Major depressive disorder, single episode, unspecified; F17.200 Nicotine dependence, unspecified, uncomplicated; M19.90 Unspecified osteoarthritis, unspecified site; E66.9 Obesity, unspecified; Z68.24 Body mass index [BMI] 24.0-24.9, adult; Z86.73 Personal history of transient ischemic attack (TIA), and cerebral infarction without residual deficits; Z80.9 Family history of malignant neoplasm, unspecified; Z79.899 Other long term (current) drug therapy; Z79.890 Hormone replacement therapy; Z91.040 Latex allergy status; Z66 Do not resuscitate
CPT/HCPCS: 99284 ×2; 36430 ×2; 96376; 96374; 36415; 94760; 86900; 86901; 80053 ×2; 82728; 83540; 83550; 85025 ×2; 85610; 85730; 86850; 86920; 82105; G0378 ×2; P9016 ×2; S4990 ×2; C9113 ×2

== ENCOUNTER 2017-11-29 07:42 | Day surgery (SDC) | payer MEDICARE ==
[2017-11-26 14:49] VITALS: BMI 26.3
[~2017-11-29 07:42] MED LIST changes: -LIDOCAINE 1% 20 ML VIAL (10MG/ML) FOR IV START INTRADERMA PRN
[2017-11-29 08:10] VITALS: TEMP 98
[2017-11-29] MEDS ORDERED: LIDOCAINE 1% 20 ML VIAL (10MG/ML) FOR IV START INTRADERMA ONE (08:14)
[2017-11-29] MEDS ORDERED: PROPOFOL 10 MG/ML 20 ML VIAL IV ONE (08:40)
--- NOTE | 2017-11-29 09:11 | P.PCN ---
Date of Procedure: 11/29/17 Procedure(s) Performed: Brief history: Patient is a pleasant 72-year-old white female, scheduled for an elective upper endoscopy as well as colonoscopy as a part of evaluation of iron deficiency anemia. Patient has history of alcoholic cirrhosis of the liver diagnosed a few years ago. Procedure performed: Esophagogastroduodenoscopy with biopsy Colonoscopy with snare polypectomy Preoperative diagnosis: Iron deficiency anemia History of liver cirrhosis Anesthesia: MAC Procedure: After informed consent was obtained from the patient was brought into the endoscopy unit and IV sedation was administered by anesthesia under continuous monitoring. Initially upper endoscopy was done. The Olympus GF 160 video endoscope was inserted inserted into the mouth and esophagus intubated without any difficulty and was gradually advanced into the stomach and duodenum and carefully examined. The bulb and second part of the duodenum appeared normal. Biopsies were done from the duodenum to rule out celiac disease. The scope was then withdrawn into the stomach adequately insufflated with air and upon careful examination the antrum had mild gastritis and biopsies were done from this area. The body, cardia and fundus appeared normal. The scope was then withdrawn into the esophagus. The GE junction was located at 40 cm to the incisors. It appeared regular with no erythema erosions or ulcerations. Small distal esophageal varices seen. Rest of the esophagus appeared normal. Patient tolerated the procedure well. At this time the patient continued to remain sedation. Initial digital rectal examination was normal. Olympus CF 160 video colonoscope was then inserted into the rectum and gradually advanced to the cecum without any difficulty. Careful examination was performed as the scope was gradually being withdrawn. The prep was excellent. The cecum, ascending colon appeared normal. In the transverse colon there was a 1 cm polyp removed by snare polypectomy. Rest of the, transverse colon, descending colon, sigmoid colon and rectum appeared normal. Retroflexion was performed in the rectum and no lesions were noted. Patient tolerated the procedure well. Impression: 1. Upper endoscopy revealed small esophageal varices and mild gastritis 2. Colonoscopy revealed 1 cm transverse colon polyp status post snare polypectomy. Rest of the colon appeared normal. Recommendations: Findings of this examination were discussed with the patient as well as her family. She was advised to follow with the biopsy results. If the biopsy shows a tubular adenoma, she can have a repeat colonoscopy in 3-5 years
[2017-11-29 09:15] VITALS: RESP 16
[2017-11-29 09:31] VITALS: BP 161/69; PULSE 80
== END 2017-11-29 09:52 | disposition home or self-care (01) ==
LOC: ORWHC2ENDO 07:42
PROVIDERS: ATTEND Internal Medicine Gastroenterology
DX: K29.50 Unspecified chronic gastritis without bleeding (principal); D12.3 Benign neoplasm of transverse colon; D50.9 Iron deficiency anemia, unspecified; K74.60 Unspecified cirrhosis of liver; I85.00 Esophageal varices without bleeding; F17.210 Nicotine dependence, cigarettes, uncomplicated; I10 Essential (primary) hypertension; Z79.899 Other long term (current) drug therapy
CPT/HCPCS: 43239; 45385; 88305

== ENCOUNTER → 2019-01-12 | Outpatient (CLI) | payer MEDICARE ==
[2019-01-12 14:32] LABS: Anisocytosis Moderate; HGB 7.1 gm/dL (11.4-16.0); Hypochromasia Marked; MCH 29.6 pg (25.0-35.0); MCHC 29.6 g/dL (31.0-37.0); Macrocytosis Moderate; Mean Platelet Volume 8.6; RDW 20.2 % (11.5-15.5); WBC 4.7 k/uL (3.8-10.6)
[2019-01-12 14:36] LABS: Platelet Count 95 k/uL (150-450)
[2019-01-12 15:45] LABS: Band Neutrophils % 4 %; Monocytes # (M) 0.19 k/uL (0-1.0); Neutrophils % (M) 75 %; Nucleated Red Blood Cells 0 /100 WBC (0-0); Poikilocytosis (M) Present; Target Cells Present; Total Cells Counted 100
[2019-01-12 19:30] LABS: Iron Saturation 11.82 (12.00-45.00)
[2019-01-12 19:41] LABS: Ferritin 52.3 ng/mL (10.0-291.0)
[2019-01-12 20:13] LABS: ALT 11 U/L (8-44); AST 27 U/L (13-35); African American GFR (CKD) 63.8 (60.0-200.0); Albumin/Globulin Ratio 0.75 (1.60-3.17); Alkaline Phosphatase 113 U/L (41-126); Calcium 8.4 mg/dL (8.7-10.3); Carbon Dioxide 27.7 mmol/L (21.6-31.8); Chloride 108 mmol/L (96-109); Chol/HDL Ratio 2.14; Cholesterol 94 mg/dL (0-200); Glucose 90 mg/dL (70-110); Potassium 4.7 mmol/L (3.5-5.5); Sodium 139 mmol/L (135-145); Total Bilirubin 0.4 mg/dL (0.3-1.2); Triglycerides <50.0 mg/dL (0.0-149.0)
== END | disposition home or self-care (01) ==
LOC: LABWHC1 13:28
PROVIDERS: ATTEND Internal Medicine
DX: I10 Essential (primary) hypertension (principal); D50.9 Iron deficiency anemia, unspecified; R19.4 Change in bowel habit; E78.5 Hyperlipidemia, unspecified; E03.9 Hypothyroidism, unspecified
CPT/HCPCS: 36415; 80053; 80061; 82728; 83540; 83550; 84439; 84443; 84481; 85025

== ENCOUNTER → 2019-01-16 | Outpatient (CLI) | payer MEDICARE ==
--- NOTE | 2019-01-16 13:47 | US ---
EXAMINATION TYPE: US gallbladder DATE OF EXAM: 01/16/2019 COMPARISON: CT abdomen and pelvis dated 09/18/2017 CLINICAL HISTORY: R10.84 generalized abdominal pain. RUQ pain EXAM MEASUREMENTS: Liver Length: 13.1 cm Gallbladder Wall: 0.3 cm CBD: 0.4 cm Right Kidney: 9.2 x 4.3 x 4.5 cm Technical limitations due to large amount of overlying bowel content Pancreas: Tail obscured by overlying bowel gas Liver: Heterogenous with lobulated contour. Full evaluation of the liver is limited by overlying ananth l gas. Gallbladder: no evidence of stones Evidence for sonographic Jensen's sign: no CBD: appears wnl Right Kidney: no evidence of hydronephrosis as visualized IMPRESSION: 1. Cirrhotic morphology of the liver. Full evaluation of the liver is limited by overlying bowel gas. Correlate with AFP. MRI liver could be utilized to evaluate for hepatoma in this patient with known cirrhosis. 2. No sonographic evidence of cholelithiasis nor acute cholecystitis.
== END | disposition home or self-care (01) ==
LOC: RADUSWWP 12:22
PROVIDERS: ATTEND Internal Medicine
DX: K74.69 Other cirrhosis of liver (principal)
CPT/HCPCS: 76705

== ENCOUNTER → 2019-02-04 | Outpatient (CLI) | payer MEDICARE ==
--- NOTE | 2019-02-04 15:30 | CT ---
EXAMINATION TYPE: CT chest wo con DATE OF EXAM: 02/04/2019 COMPARISON: None HISTORY: SOB, hx of COPD CT DLP: [address] of the chest was performed with lung and mediastinal window settings submitted. The la ck of contrast limits evaluation of the vascular, mediastinal and parenchymal structures including th e upper abdomen. LUNGS: Upper lobe predominant subpleural fibrosis with interstitial prominence identified within both upper lobes. No evidence for focal consolidation. Linear scarring or atelectasis lingula and right l ower lobe. No evidence for mass or suspicious nodule. No pleural effusion. MEDIASTINUM/LUCIANA: Thoraci c aorta is of normal caliber with limited evaluation given lack of contrast. The heart is not enlarg ed. No evidence for mediastinal mass. No lymph nodes greater than 1cm. UPPER ABDOMEN: Splenomegaly with craniocaudal measurement of 13 cm. Cirrhotic liver disease. Nonobstr ucting right-sided nephrolithiasis. OTHER: No significant other abnormality. IMPRESSION: 1. Upper lobe subpleural fibrosis and interstitial prominence. 2. Cirrhotic liver disease with splenomegaly.
== END | disposition home or self-care (01) ==
LOC: RADCTMAIN 13:52
PROVIDERS: ATTEND Family Medicine
DX: J84.10 Pulmonary fibrosis, unspecified (principal); J44.9 Chronic obstructive pulmonary disease, unspecified
CPT/HCPCS: 36415; 71250; 82565; 84520

== ENCOUNTER 2019-05-01 10:58 | Observation (INO) | payer MEDICARE ==
[2019-05-01 14:04] LABS: Anisocytosis Slight; HCT 33.8 % (34.0-46.0); Hypochromasia Marked; MCH 31.8 pg (25.0-35.0); MCHC 29.1 g/dL (31.0-37.0); MCV 109.3 fL (80.0-100.0); Macrocytosis Marked; Mean Platelet Volume 10.2; Platelet Count 139 k/uL (150-450); RBC 3.09 m/uL (3.80-5.40); RDW 17.1 % (11.5-15.5); WBC 8.9 k/uL (3.8-10.6)
[2019-05-01 14:10] LABS: Albumin 3.5 g/dL (3.5-5.0); Calcium 8.8 mg/dL (8.4-10.2); Lactic Acid, Venous 1.3 mmol/L (0.7-2.0); Potassium 3.6 mmol/L (3.5-5.1); Total Bilirubin 0.6 mg/dL (0.2-1.3); Total Protein 8.4 g/dL (6.3-8.2)
[2019-05-01 14:20] LABS: HGB 9.8 gm/dL (11.4-16.0)
[2019-05-01 15:00] LABS: Lymphocytes # (M) 0.71 k/uL (1.0-4.8); Monocytes # (M) 0.18 k/uL (0-1.0); Neutrophils # (M) 8.01 k/uL (1.3-7.7); Neutrophils % (M) 90 %; Nucleated Red Blood Cells 0 /100 WBC (0-0); Total Cells Counted 100
--- NOTE | 2019-05-01 15:11 | US ---
EXAMINATION TYPE: US abdomen complete DATE OF EXAM: 05/01/2019 COMPARISON: NONE CLINICAL HISTORY: diarrhea. Dehydration. Weight loss. EXAM MEASUREMENTS: Liver Length: 15.1 cm Gallbladder Wall: .3 cm CBD: .5 cm Spleen: 12.6 cm Right Kidney: 9.7 x 4.2 x 3.2 cm Left Kidney: 9.8 x 4.7 x 4.3 cm Pancreas: Tail obscured by overlying bowel gas Liver: Heterogenous increased attentuation. Fluid visualized. Dilated vessels noted. Gallbladder: Limited no stones seen. Evidence for sonographic Jensen's sign: No CBD: wnl Spleen: wnl Right Kidney: wnl Left Kidney: Cystic area upper pole measuring 2.9 x 2.6 x 2.7 cm. Upper IVC: wnl Abd Aorta: wnl The liver is heterogenous. The intrahepatic portion of the IVC and proximal abdominal aorta are withi n normal limits. There is no evidence of cholelithiasis. Common bile duct is unremarkable. The vis ualized portions of the pancreas are homogenous. The spleen is unremarkable. Kidneys are symmetric and free of hydronephrosis. Left renal cyst. Small amount of free fluid. IMPRESSION: 1. Fatty liver. 2. Small amount of ascites. 3 left renal cysts.
[2019-05-01] MEDS: NICOTINE 21MG/24HR PATCH TRANSDERM SCH (16:28)
[2019-05-01] MEDS: GABAPENTIN 400 MG CAP PO SCH ×2 (16:28→21:14)
[2019-05-01] MEDS: SODIUM CHLORIDE 0.9% 1,000 ML IV SCH (16:32)
--- NOTE | 2019-05-01 20:13 | CONS ---
CONSULTATION DATE OF DICTATION: May 01, 2019. REQUESTING PHYSICIAN: Dr. Bebeto Davila. REASON FOR CONSULTATION: Severe diarrhea of 2 weeks duration. HISTORY OF PRESENT ILLNESS: The patient is a 74-year-old pleasant white female who was admitted to the hospital because of acute onset of diarrhea for the last 2-3 weeks duration. She started having the symptoms abruptly, has about 10-15 loose watery bowel movements daily with no blood or mucosa in the stool. Has some cramping lower abdominal pain. She denies any fever, chills, or night sweats. She denies any recent antibiotic use. Denies any recent travel history. Never had these symptoms in the past. Her last colonoscopy was done by me in October of 2017 that showed small polyps. She went to see Dr. Davila and was admitted to the hospital directly for further evaluation. She denies starting any new medications recently. PAST MEDICAL HISTORY: Past medical history is significant for hypertension, hyperlipidemia, hypothyroidism, gastroesophageal reflux disease, mild dementia, anxiety and depression. MEDICATIONS: At home include: Trazodone and Aricept, cholestyramine, Norvasc, Prilosec, Namenda, Zestril, Synthroid, Neurontin, Feosol, Lexapro, vitamin D3 and Zyrtec. ALLERGIES: None. SOCIAL HISTORY: No smoking or alcohol use. FAMILY HISTORY: Unremarkable. PAST SURGICAL HISTORY: Past surgical history of uterine cancer for which she underwent hysterectomy followed by chemotherapy approximately 5 years ago, tonsillectomy, EGD, colonoscopy in 10/2017, bilateral cataract surgery. FAMILY HISTORY: Brother had some cancer and father also had some cancer. REVIEW OF SYSTEMS: CARDIOPULMONARY: No chest pain or shortness of breath. no dysuria or hematuria. MUSCULOSKELETAL unremarkable. SKIN unremarkable. ENDOCRINE unremarkable. PSYCHIATRIC unremarkable. NEUROLOGY unremarkable. ENT/vision unremarkable. CONSTITUTIONAL: Weight loss of 15 pounds. No fever, chills, night sweats. PHYSICAL EXAMINATION: She appears comfortable. No apparent distress. Vital signs stable. Blood pressure 151/56, pulse rate 76, temperature 98.6. HEENT examination unremarkable. Conjunctivae pink. Sclerae anicteric. Oral cavity no lesions. Neck: No JVD or lymph node enlargement. The chest was clear to auscultation. HEART: Regular rate and rhythm. ABDOMEN: Soft. Bowel sounds are positive. No organomegaly. EXTREMITIES: No pedal edema. SKIN: No rashes. NEURO: She is alert and oriented x3. No focal deficits. LABS: Done today: WBC 8.9, hemoglobin 9.8, platelets are 139, MCV is 109. Basic metabolic panel is within normal limits. ALT, AST, T-bilirubin and alkaline phosphatase are normal. She had ultrasound of the abdomen done that showed fatty liver and small amount of ascites noted. IMPRESSION: 1. This lady presented to the hospital with acute onset of lower abdominal pain followed by severe diarrhea for the last 2-3 weeks duration. She has 10-15 loose watery bowel movements daily with no blood or mucus in the stool. She denies any recent antibiotic use. Denies any recent travel history and no new medications that were started recently. Most likely we are dealing with an infectious colitis. Her last colonoscopy in October of 2017 showed diverticulosis and small polyps. 2. History of hypertension. 3. History of uterine cancer many years ago, status post hysterectomy followed by chemotherapy. RECOMMENDATIONS: 1. We will do stool studies with stool culture, C difficile toxin for ova parasites. 2. Clear liquid diet. 3. Repeat labs in the morning. 4. Based on the results, we will consider further workup. 5. At this time we will follow with her closely. Thank you for this consultation. MMODL / IJN: [id number] /
[2019-05-01] MEDS: MEMANTINE 10 MG TAB PO SCH (21:14)
[2019-05-01] MEDS: traZODone HCL 100 MG TAB PO SCH (21:14)
[2019-05-01] MEDS: DONEPEZIL 10 MG TAB PO SCH (21:14)
[2019-05-02] MEDS: LEVOTHYROXINE 25 MCG TAB PO SCH (05:35)
[2019-05-02] MEDS: SODIUM CHLORIDE 0.9% 1,000 ML IV SCH ×2 (05:40→18:23)
[2019-05-02 07:05] LABS: Anisocytosis Slight; HCT 28.7 % (34.0-46.0); HGB 8.5 gm/dL (11.4-16.0); Hypochromasia Marked; MCH 32.5 pg (25.0-35.0); MCHC 29.6 g/dL (31.0-37.0); MCV 109.9 fL (80.0-100.0); Macrocytosis Marked; Mean Platelet Volume 10.7; RBC 2.61 m/uL (3.80-5.40); RDW 16.8 % (11.5-15.5); WBC 3.3 k/uL (3.8-10.6)
[2019-05-02 07:20] LABS: Albumin 2.5 g/dL (3.5-5.0); Calcium 8.1 mg/dL (8.4-10.2); Potassium 3.7 mmol/L (3.5-5.1); Total Bilirubin 0.5 mg/dL (0.2-1.3); Total Protein 6.5 g/dL (6.3-8.2)
[2019-05-02 08:36] LABS: Eosinophils # (M) 0.07 k/uL (0-0.7); Lymphocytes # (M) 0.53 k/uL (1.0-4.8); Neutrophils # (M) 2.51 k/uL (1.3-7.7); Neutrophils % (M) 76 %; Nucleated Red Blood Cells 0 /100 WBC (0-0); Total Cells Counted 100
[2019-05-02 08:40] LABS: Platelet Count 72 k/uL (150-450)
[2019-05-02] MEDS: NICOTINE 21MG/24HR PATCH TRANSDERM SCH (10:07)
[2019-05-02] MEDS: LISINOPRIL 10 MG TAB PO SCH (10:08)
[2019-05-02] MEDS: LORATADINE 10 MG TAB PO SCH (10:08)
[2019-05-02] MEDS: ESCITALOPRAM 10 MG TAB PO SCH (10:08)
[2019-05-02] MEDS: PANTOPRAZOLE 40 MG TABLET PO SCH (10:08)
[2019-05-02] MEDS: GABAPENTIN 400 MG CAP PO SCH ×3 (10:08→20:10)
[2019-05-02] MEDS: amLODIPine 10 MG TAB PO SCH (10:08)
[2019-05-02] MEDS: MEMANTINE 10 MG TAB PO SCH ×2 (10:08→20:10)
--- NOTE | 2019-05-02 10:32 | PN ---
PROGRESS NOTE DATE OF DICTATION: 05/02/2019 Patient is a 74-year-old pleasant white female admitted to the hospital with severe diarrhea for the last 3 to 4 weeks' duration. She has been having 10 to 15 loose watery bowel movements daily with no blood or mucus in the stool. She was directly admitted by Dr. Davila from the office. Stool studies were requested yesterday. They were not done so far. Patient states that she is feeling better. She still feels fatigued and tired. She had only 2 loose bowel movements this morning, but they are much better. She reports no nausea, vomiting. PHYSICAL EXAMINATION: Appears comfortable. No apparent distress. Vital signs are stable. Blood pressure is 104/55, pulse rate 57, temperature 98. HEENT examination unremarkable. Conjunctivae pink. Sclerae anicteric. Oral cavity no lesions. NECK: No JVD or lymph node enlargement. CHEST: Clear to auscultation. HEART: Regular rate and rhythm. ABDOMEN: Soft. It was non-tender, non-distended. Bowel sounds are positive. No organomegaly. EXTREMITIES: No pedal edema. SKIN: No rashes. NEUROLOGIC: Alert and oriented x3. No focal deficits. LABS: WBC 3.3, hemoglobin 8.5, platelets 72. BUN and creatinine are within normal limits. Stool studies are still pending. IMPRESSION: Acute onset of diarrhea for the last 2 weeks' duration, bowel movements anywhere from 10 to 15 a day which were loose and watery in consistency, but no blood or mucus in the stool. We are most likely dealing with infectious etiology, probably viral gastroenteritis. Stool studies have been requested to rule out bacterial colitis, but so far they are pending. In the meantime, her symptoms are gradually improving. Last colonoscopy in 2018 showed polyps and diverticulosis. RECOMMENDATIONS: 1. Await stool studies. 2. In the meantime, will advance diet as tolerated. 3. Hold antibiotics for now. 4. Repeat labs in the morning, and we will follow with you closely. Thank you for this consultation. MMODL / IJN: [id number] /
--- NOTE | 2019-05-02 11:11 | HP ---
HISTORY AND PHYSICAL This patient is a 74-year-old white female admitted with severe diarrhea over the past 2 to 3 weeks with 10 to 15 watery stools, severe dehydration and worsening diarrhea. She was asked to see Dr. Calloway for possible colonoscopy. She is severely dehydrated. She needs IV fluids. Started on Cipro for possible bowel infection. PAST MEDICAL HISTORY: Hypertension, dyslipidemia, hypothyroidism, GERD, mild dementia, anxiety, depression. HOME MEDICATIONS: Trazodone, Aricept, Norvasc, Prilosec, Namenda, Zestril, Synthroid, Neurontin, iron sulfate, Lexapro, vitamin D3 and Zyrtec. ALLERGIES: NONE. SOCIAL HISTORY: No smoking or alcohol. SURGICAL HISTORY: Hysterectomy followed by chemotherapy for uterine cancer 5 years ago, tonsillectomy, EGD, colonoscopy, bilateral cataract surgery. FAMILY HISTORY: Cancer in father. REVIEW OF SYSTEMS: Fourteen-point review of systems negative except for mentioned. Weight loss of 15 pounds recently and severe diarrhea, watery stools. PHYSICAL EXAMINATION: Vital signs were reviewed. Blood pressure 151/56, pulse 70 to 76, temperature 98.6. HEENT: Normocephalic, atraumatic. HEART: Regular rate and rhythm. ABDOMEN: Soft. SKIN: No rash or excoriation or bruising. NEUROLOGIC: Alert and oriented x3. LABS/IMAGING: White count 8.9, hemoglobin 9.8. Ultrasound of the abdomen shows small ascites. Fatty liver, acute abdominal pain, severe diarrhea, severe dehydration, possible infectious colitis, hypertension, dementia, uterine cancer. Stool cultures are pending. C difficile is pending. Clear liquid diet. Repeat labs, GI consultation. MMODL / IJN: [id number] /
[2019-05-02 12:06] VITALS: BMI 24.2
[2019-05-02] MEDS: SODIUM FERRIC GLUCONAT-SUCROSE 125 MG in SODIUM CHLORIDE 0.9% 100 ML IVPB SCH (12:55)
[2019-05-02] MEDS: traZODone HCL 100 MG TAB PO SCH (20:10)
[2019-05-02] MEDS: DONEPEZIL 10 MG TAB PO SCH (20:10)
[2019-05-03] MEDS: SODIUM CHLORIDE 0.9% 1,000 ML IV SCH (05:34)
[2019-05-03] MEDS: LEVOTHYROXINE 25 MCG TAB PO SCH (05:35)
[2019-05-03 06:21] LABS: Anisocytosis Slight; HCT 28.6 % (34.0-46.0); HGB 8.5 gm/dL (11.4-16.0); Hypochromasia Marked; MCH 32.4 pg (25.0-35.0); MCHC 29.6 g/dL (31.0-37.0); MCV 109.5 fL (80.0-100.0); Macrocytosis Marked; Mean Platelet Volume 10.5; RBC 2.61 m/uL (3.80-5.40); RDW 16.9 % (11.5-15.5); WBC 3.7 k/uL (3.8-10.6)
[2019-05-03 06:33] LABS: Platelet Count 55 k/uL (150-450)
[2019-05-03 06:49] LABS: Albumin 2.6 g/dL (3.5-5.0); Calcium 8.2 mg/dL (8.4-10.2); Potassium 3.7 mmol/L (3.5-5.1); Total Bilirubin 0.4 mg/dL (0.2-1.3); Total Protein 6.7 g/dL (6.3-8.2)
[2019-05-03 07:22] LABS: Lymphocytes # (M) 0.41 k/uL (1.0-4.8); Monocytes # (M) 0.07 k/uL (0-1.0); Neutrophils # (M) 3.22 k/uL (1.3-7.7); Neutrophils % (M) 87 %; Nucleated Red Blood Cells 0 /100 WBC (0-0); Total Cells Counted 100
[2019-05-03] MEDS: NICOTINE 21MG/24HR PATCH TRANSDERM SCH (08:35)
[2019-05-03] MEDS: MEMANTINE 10 MG TAB PO SCH ×2 (08:36→20:09)
[2019-05-03] MEDS: LISINOPRIL 10 MG TAB PO SCH (08:36)
[2019-05-03] MEDS: ESCITALOPRAM 10 MG TAB PO SCH (08:36)
[2019-05-03] MEDS: GABAPENTIN 400 MG CAP PO SCH ×3 (08:36→22:46)
[2019-05-03] MEDS: amLODIPine 10 MG TAB PO SCH (08:36)
[2019-05-03] MEDS: LORATADINE 10 MG TAB PO SCH (08:36)
[2019-05-03] MEDS: PANTOPRAZOLE 40 MG TABLET PO SCH (08:36)
[2019-05-03] MEDS: SODIUM FERRIC GLUCONAT-SUCROSE 125 MG in SODIUM CHLORIDE 0.9% 100 ML IVPB SCH (09:41)
--- NOTE | 2019-05-03 09:50 | PN ---
PROGRESS NOTE DATE OF SERVICE: May 03, 2019 The patient is a 74-year-old pleasant white female admitted to hospital with severe diarrhea for the last 2 weeks duration. Stool studies have been requested. C. dif is negative. Cultures are still pending. Patient in the meantime, is doing much better. She had only 2 soft bowel movements yesterday and only one today. On a regular diet, tolerating well. She denies any symptoms. No fever, chills, night sweats. PHYSICAL EXAMINATION: Blood pressure is 129/64, pulse rate 78. Temperature 98.6. HEENT examination unremarkable. Conjunctivae pink. Sclerae anicteric. Oral cavity no lesions. NECK: No JVD or lymph node enlargement. CHEST: Clear to auscultation. HEART: Regular rate and rhythm. ABDOMEN: Soft. Bowel sounds are positive. No organomegaly. EXTREMITIES: No pedal edema. SKIN no rashes. NEUROLOGIC: Alert and oriented x3. No focal deficits. LABS: WBC 7.7, hemoglobin 8.5, platelets are 87,000. Basic metabolic panel is within normal limits. BUN is 18, creatinine 0.01. C difficile is negative. antigen negative. negative. Cultures are still pending. IMPRESSION: 1. Acute onset of diarrhea for the last 2 weeks duration. Most likely infectious gastroenteritis, symptoms are resolving. Diarrhea has improved. Stool studies so far. C difficile toxin and antigens are negative. Cultures are still pending. 2. Mild pancytopenia of unclear etiology. Hemoglobin at 8.5 g/dL. No evidence of gastrointestinal bleed. RECOMMENDATIONS: 1. Advance to regular diet. 2. Await rest of the stool cultures. 3. In regards to the pancytopenia, consider hematology consultation. 4. No plans for any endoscopy intervention at the present time. 5. We will continue to follow her closely during the hospital stay. Thank you for this consultation. MMODL / IJN: [id number] /
[2019-05-03] MEDS: IPRATROPIUM-ALBUTEROL 3 ML NEB INHALATION SCH ×2 (16:52→19:56)
--- NOTE | 2019-05-03 17:37 | CT ---
EXAMINATION TYPE: CT abdomen pelvis wo con DATE OF EXAM: 05/03/2019 COMPARISON: 09/19/2017 HISTORY: Diarrhea and abdominal pain CT DLP: 594.5 mGycm Automated exposure control for dose reduction was used. TECHNIQUE: Helical acquisition of images was performed from the lung bases through the pelvis. FINDINGS: LUNG BASES: There is left hemidiaphragm elevation, new from the prior with left basilar atelectasis p artially visualized. Surrounding groundglass opacities in the right lung base suggests fluid overload as there are geographic. LIVER/GB: Cirrhotic morphology of the liver with perihepatic ascites, perisplenic ascites and small v olume ascites in the pelvis. Mesenteric congestion is seen throughout. There are small gastrohepatic and paraesophageal varices. Portal vein is dilated. Spleen is enlarged in craniocaudal dimension but cannot be fully measured due to left hemidiaphragm elevation and incomplete visualization of the most cranial aspect of the spleen. Lack of intravenous contrast limits evaluation for hepatic mass. PANCREAS: Mesenteric congestion limits evaluation for perihepatic fat stranding. No ductal dilatation . SPLEEN: Splenomegaly ADRENALS: Grossly unremarkable KIDNEYS: 2.7 cm left superior pole renal cyst. Right linear oriented probable renal calcification of the inferior pole but punctate probable calculus of the superior pole measuring 2 mm. Hydronephrosis of either kidney. FREE AIR: No free air is visualized ADENOPATHY: Limited evaluation for adenopathy given lack of intravenous contrast, lack of oral contr ast, ascites, and mesenteric congestion. OSSEOUS STRUCTURES: Diffuse osseous demineralization. Mild degenerative change of the spine and levo scoliosis of the lumbar spine. Mild degenerative change of the hips. BOWEL: Thickening of the bowel loops throughout may be on the basis of the adjacent ascites, hypopro teinemia, or enteritis in gastritis. OTHER: Extensive atheromatous change of the abdominal aorta and its branches. Mild degree anasarca. IMPRESSION: 1. NO EVIDENCE OF BOWEL OBSTRUCTION. MULTIFOCAL BOWEL WALL THICKENING OF THE STOMACH AND SMALL BOWEL MAY BE ON THE BASIS OF HYPOPROTEINEMIA, ADJACENT ASCITES, OR ENTERITIS IN GASTRITIS. 2. CIRRHOTIC MORPHOLOGY OF THE LIVER WITH SEQUELA PORTAL VENOUS HYPERTENSION INCLUDING GASTROHEPATIC AND DISTAL ESOPHAGEAL VARICES. 3. MILD ABDOMINAL ASCITES. 4. NONOBSTRUCTING PUNCTATE RIGHT UPPER POLE RENAL CALCULUS.
[2019-05-03] MEDS: DONEPEZIL 10 MG TAB PO SCH (20:09)
[2019-05-03] MEDS: traZODone HCL 100 MG TAB PO SCH (20:09)
--- NOTE | 2019-05-03 21:59 | PN ---
PROGRESS NOTE DATE OF SERVICE: 05/03/2019 I am covering for Dr. Davila. This 74-year-old woman was admitted with significant diarrhea which is ongoing for the past several weeks which is subacute in nature. Dr. Calloway is evaluating the patient closely. The diarrhea frequency is reduced. Still the patient has diarrhea. Infectious gastroenteritis is a possibility at this time. The patient also had some mild pancytopenia with etiology unknown at this time. The patient also has some mild metabolic acidosis also. Patient being closely monitored. PAST MEDICAL HISTORY: Reviewed. REVIEW OF SYSTEMS: Cardiovascular system: No angina or palpitations. Respiration: As mentioned earlier. GI as mentioned earlier. : No dysuria. CENTRAL NERVOUS SYSTEM: No numbness or weakness. CURRENT MEDICATIONS: Reviewed and include: 1. Norvasc 10 mg daily. 2. Aricept 10 mg q.h.s. 3. Lexapro 10 mg daily. 4. Iron sulfate. 5. Neurontin. 6. Synthroid 25 mcg. 7. Zestril 10 mg. 8. Claritin 10 mg. 9. Namenda. 10.Habitrol 14. 11.Protonix. 12.Desyrel. PHYSICAL EXAM: Patient is alert, oriented x2. Pulse 89, blood pressure 124/61, respirations 16, temperature 98.4, pulse ox 92% on room air. HEENT: Conjunctivae normal. NECK: No JVD. CARDIOVASCULAR: S1, S2 muffled. RESPIRATIONS: Breath sounds diminished in the bases. Scattered rhonchi and crackles. ABDOMEN: Soft, nontender. Minimal diffuse distention. Nontender. No mass palpable. LEGS are no edema. No swelling. CENTRAL NERVOUS SYSTEM: No focal deficits. LABS: WBC 3.7, hemoglobin is 8.5, otherwise sodium is 140, potassium 3.7 and marked macrocytosis and albumin is 2.6. The abdominal ultrasound showed fatty liver and small amount of ascites. ASSESSMENT: 1. Subacute diarrhea for evaluation. 2. Rule out chronic liver disease. 3. Cirrhosis of the liver and splenomegaly. 4. Mild pancytopenia of undetermined etiology. 5. Decreased CO2 with mild metabolic acidosis, possible recurrent diarrhea. 6. Hypoalbuminemia with mild to moderate protein calorie malnutrition. 7. History of cerebrovascular accident, transient ischemic attack. 8. Gastroesophageal reflux disease. 9. Hypertension. 10.Hyperlipidemia. 11.History of uterine cancer on chemotherapy. 12.History of anxiety, depression. 13.History of nicotine dependence. RECOMMENDATIONS AND DISCUSSION: In this 75 -year-old woman who presented with multiple complex medical issues, we will monitor the patient closely, continue the current medications, management and symptomatic treatment. Otherwise, at this time, I recommend continue the workup for the diarrhea and the recent CT scan showed cirrhotic liver and as well as splenomegaly. We will continue to monitor. Guarded prognosis because of multiple complex medical issues. Further recommendations to follow. I recommend abdominal pelvis CT scan also. I would recommend hepatitis panel also to complete the workup along with UA with micro. Guarded prognosis. Further recommendations to follow. MMODL / IJN: [id number] /
[2019-05-04] MEDS: LEVOTHYROXINE 25 MCG TAB PO SCH (05:46)
[2019-05-04] MEDS: IPRATROPIUM-ALBUTEROL 3 ML NEB INHALATION SCH ×2 (06:51→11:24)
[2019-05-04] MEDS: NICOTINE 21MG/24HR PATCH TRANSDERM SCH (07:58)
[2019-05-04] MEDS: GABAPENTIN 400 MG CAP PO SCH (07:58)
[2019-05-04] MEDS: ESCITALOPRAM 10 MG TAB PO SCH (07:58)
[2019-05-04 07:59] VITALS: RESP 16
[2019-05-04] MEDS: LORATADINE 10 MG TAB PO SCH (07:59)
[2019-05-04] MEDS: LISINOPRIL 10 MG TAB PO SCH (07:59)
[2019-05-04] MEDS: MEMANTINE 10 MG TAB PO SCH (07:59)
[2019-05-04] MEDS: amLODIPine 10 MG TAB PO SCH (07:59)
[2019-05-04] MEDS: PANTOPRAZOLE 40 MG TABLET PO SCH (07:59)
[2019-05-04] MEDS ORDERED: CHOLESTYRAMINE (WITH SUGAR) 4 GM PACKET PO SCH (09:00)
[2019-05-04] MEDS: SODIUM FERRIC GLUCONAT-SUCROSE 125 MG in SODIUM CHLORIDE 0.9% 100 ML IVPB SCH (09:08)
[2019-05-04 13:07] LABS: Appearance,Urine Clear (Clear); Bilirubin,Urine Negative (Negative); Blood,Urine Negative (Negative); Color,Urine Yellow; Glucose,Urine (UA) Negative (Negative); Ketones,Urine Negative (Negative); Leukocyte Esterase,Urine Negative (Negative); Nitrite,Urine Negative (Negative); Protein,Urine Negative (Negative); Specific Gravity,Urine 1.017 (1.001-1.035); Urobilinogen,Urine <2.0 mg/dL (<2.0)
[2019-05-04 13:28] LABS: Hepatitis A Antibody IgM Non-Reactive (Non-Reactive); Hepatitis B Core IgM Non-Reactive (Non-Reactive); Hepatitis B Surface Antigen Non-Reactive (Non-Reactive); Hepatitis C IgG Antibody Non-Reactive (Non-Reactive)
[2019-05-04 15:13] VITALS: BP 141/57; PULSE 93; TEMP 97.7
--- NOTE | 2019-05-04 15:26 | PN ---
PROGRESS NOTE DATE OF DICTATION: 05/04/2019 Patient is a 74-year-old pleasant white female admitted to the hospital with severe diarrhea for the last 2 weeks duration. She was having bowel movements, about 10-15 a day which are loose to watery in consistency. Since being in the hospital, she did have stool studies done. The C difficile toxin is negative, Ova parasites, negative GI antigen negative. In the meantime, her diarrhea has significantly improved. She had only one bowel movement today. Yesterday had 2 bowel movements. Overall, she is feeling much better. While in the hospital she was noted to have mild pancytopenia with a WBC of 3.7, hemoglobin 8.5, and platelets of 55,000. She did have a CT of the . She was also noted to have mild elevations in transaminases. CT of the abdomen and pelvis done yesterday showed evidence of cirrhotic appearing liver with portal hypertension and minimal ascites. The patient has a history of remote alcohol use. She denies any abdominal pain. No nausea, vomiting. PHYSICAL EXAMINATION: Appears comfortable, in no apparent distress. VITAL SIGNS: Stable. Blood pressure is 133/86, pulse 83, temperature 97.8. HEENT: Examination unremarkable. Conjunctivae are pink. Sclerae nonicteric. Oral cavity no lesions. NECK: No JVD or lymph node enlargement. CHEST: Clear to auscultation. HEART: Regular rate and rhythm. ABDOMEN: Soft. Bowel sounds are positive. No organomegaly. EXTREMITIES: No pedal edema. SKIN: No rashes. NEUROLOGIC: Alert and oriented x3. No focal deficits. LABS: WBC 3.7, hemoglobin 8.5, platelets 25,000. Basic metabolic panel show AST and ALT within normal limits. T-bilirubin and alkaline phosphatase are normal. At the time of admission to the hospital, alkaline phosphatase was 137, but ALT and AST are normal. Hepatitis serologies for A, B and C were negative. IMPRESSION: 1. Acute onset of diarrhea for the last 2 weeks' duration. Most likely infectious diarrhea. Stool cultures are still pending, but stool for C difficile toxin and ova parasites were negative. In the meantime, his diarrhea has significantly improved with no intervention. 2. Last colonoscopy in 2018 was unremarkable. 3. Cirrhosis of the liver noted on imaging studies. Hepatitis serologies for A, B and C negative. Remote history of alcohol use but no alcohol use now. She has been compensated liver disease. RECOMMENDATION: 1. Agree for discharge today. 2. Imodium as needed for diarrhea. 3. In regard to the cirrhosis of the liver, that was noted on recent imaging study and negative hepatitis serologies for A, B and C. Will consider further workup on an outpatient basis. The patient was advised to follow up in office in 2 weeks. Thank you for this consultation. MMODL / IJN: [id number] /
--- NOTE | 2019-05-04 19:18 | DS ---
DISCHARGE SUMMARY DATE OF SERVICE: 05/04/2019 I am covering for Dr. Davila. FINAL DIAGNOSES: 1. Subacute diarrhea possibly infectious diarrhea. 2. Chronic liver disease and cirrhosis of the liver. 3. Hepatosplenomegaly secondary to cirrhosis of the liver. 4. Mild pancytopenia secondary to cirrhosis of the liver, possibly. 5. Decreased CO2 and mild metabolic acidosis secondary to recurrent diarrhea. 6. Hypoalbuminemia with mild to moderate protein calorie malnutrition. 7. History of cerebrovascular accident/transient ischemic attack. 8. History of gastroesophageal reflux disease. 9. Hypertension. 10.Hyperlipidemia. 11.History of uterine cancer and chemotherapy. 12.History of anxiety, depression. 13.History of nicotine dependence. 14.NO CODE, NO CPR and NO VENT. DISCHARGE DISPOSITION: The patient will be discharged in stable condition with guarded prognosis, total time taken 35 minutes. HISTORY OF PRESENT ILLNESS: This 74 -year-old woman with a past medical history of multiple medical problems being followed by Dr. Davila in the outpatient setting was admitted with diarrhea which is subacute in nature. The patient was evaluated by Dr. Calloway. Diarrhea was felt to be infectious in nature. Treated symptomatically, improved significantly. On the course of workup, patient was also found to have cirrhosis of the liver with resulting pancytopenia, but hemoglobin is 8.5 and stable at this time. The patient improved significantly. Patient is keen on going home. The patient is being discharged in stable condition with guarded prognosis. DISCHARGE ADVICE AND MEDICATIONS: 1. Diet is cardiac, hepatic. 2. Activity limited until follow up. 3. Follow up with Dr. Davila in 1 week with CBC and BMP. 4. Follow up with Gastroenterology as recommended. DISCHARGE MEDICATIONS: 1. Aricept 10 mg q.h.s. 2. Cholestyramine 4 mg p.o. daily. 3. DuoNeb q.i.d. and p.r.n. 4. Iron sulfate 320 mg p.o. b.i.d. 5. Lexapro 10 mg p.o. daily. 6. Namenda 10 mg p.o. b.i.d. 7. Neurontin 800 mg t.i.d. 8. Prilosec 40 mg p.o. daily. 9. Synthroid 25 mcg p.o. daily. 10.Trazodone 100 mg p.o. q.h.s. 11.Tylenol 650 q.6h p.r.n. 12.Vitamin D3 5000 daily. 13.Zyrtec 10 mg p.o. daily. 14.Norvasc 10 mg p.o. daily. 15.Zestril 10 mg p.o. Once again the patient is being discharged in stable condition with guarded prognosis. MMODL / IJN: [id number] /
== END 2019-05-04 15:18 | disposition home or self-care (01) ==
LOC: 4SSUR 12:47 → OBSVTOIN 12:47 → INTOOBSV 12:47 → UNDODISIN 05-04 15:18
PROVIDERS: ADMIT Family Medicine; ATTEND Family Medicine
DX: R19.7 Diarrhea, unspecified (principal); D61.818 Other pancytopenia; E87.2 Acidosis; R18.8 Other ascites; E44.0 Moderate protein-calorie malnutrition; K76.0 Fatty (change of) liver, not elsewhere classified; K74.60 Unspecified cirrhosis of liver; Z66 Do not resuscitate; E03.9 Hypothyroidism, unspecified; K21.9 Gastro-esophageal reflux disease without esophagitis; E86.0 Dehydration; E78.5 Hyperlipidemia, unspecified; F32.9 Major depressive disorder, single episode, unspecified; K57.90 Diverticulosis of intestine, part unspecified, without perforation or abscess without bleeding; I10 Essential (primary) hypertension; F41.9 Anxiety disorder, unspecified; K76.6 Portal hypertension; F03.90 Unspecified dementia, unspecified severity, without behavioral disturbance, psychotic disturbance, mood disturbance, and anxiety; Z90.710 Acquired absence of both cervix and uterus; Z98.42 Cataract extraction status, left eye; Z86.73 Personal history of transient ischemic attack (TIA), and cerebral infarction without residual deficits; Z79.899 Other long term (current) drug therapy; Z79.890 Hormone replacement therapy; Z85.42 Personal history of malignant neoplasm of other parts of uterus; Z87.891 Personal history of nicotine dependence; Z80.9 Family history of malignant neoplasm, unspecified; Z92.21 Personal history of antineoplastic chemotherapy
CPT/HCPCS: 96361; 96365; 96366 ×2; 94640 ×4; 80053 ×3; 80074; 82140; 83605; 85025 ×3; 81003; 87040; 87324; 87045; 87329; 87328; 87046; 76700; 74176; G0378 ×4; G0379; S4990 ×4; J2916 ×3

== ENCOUNTER 2019-06-28 15:28 | Inpatient (IN) | payer MEDICARE ==
[2019-06-28] MEDS ORDERED: PANTOPRAZOLE 40 MG/10 ML VIAL IVP STA (15:45)
--- NOTE | 2019-06-28 16:24 | ED ---
GI Bleed HPI <Augusto Beckford - Last Filed: 06/28/19 17:18> - General Source: patient Mode of arrival: ambulatory Limitations: no limitations <Marian Scott - Last Filed: 06/28/19 17:40> - General Chief complaint: GI Bleed Stated complaint: Blood in stool Time Seen by Provider: 06/28/19 15:45 - History of Present Illness Initial comments: 74-year-old female presenting today for chief complaint of blood coming from rectum. Patient states that she has issues with her bowels and this has been ongoing for years. Patient states that she has dark stool recently and takes iron supplement. Patient states that she noticed today that her stools were all blood. She states this dark red to bright red blood. Patient states she had multiple episodes throughout the day when this persisted she decided to present to the emergency department for further evaluation. Patient states she always has chronic weakness secondary to going to the bathroom so much daily. Patient denies any increase in weakness. Patient states that she is cold but this is normal for her. Patient denies any palpitations chest pain shortness of breath or abdominal pain. Patient denies any rectal pain. Patient denies history of nausea, vomiting, or hematemesis. Patient denies use of anticoagulation therapy. Patient denies any other complaints. Upon arrival patient appears well there is no signs of acute distress. She is very pleasant and appears nontoxic. (Marian Scott) - Related Data Home Medications Medication Instructions Recorded Confirmed Cholecalciferol [Vitamin D3 (25 5,000 unit PO DAILY 10/29/16 06/28/19 Mcg = 1000 Iu)] Ferrous Sulfate [Feosol] 325 mg PO BID 10/29/16 06/28/19 Donepezil [Aricept] 10 mg PO HS 11/07/17 06/28/19 Levothyroxine Sodium [Synthroid] 25 mcg PO DAILY 11/07/17 06/28/19 Omeprazole [PriLOSEC] 40 mg PO DAILY 11/07/17 06/28/19 Cetirizine HCl [Zyrtec] 10 mg PO DAILY 01/14/19 06/28/19 Escitalopram [Lexapro] 10 mg PO DAILY 01/14/19 06/28/19 Gabapentin [Neurontin] 800 mg PO TID 01/14/19 06/28/19 Memantine [Namenda] 10 mg PO BID 01/14/19 06/28/19 Acetaminophen Tab [Tylenol] 650 mg PO Q6H PRN 05/01/19 06/28/19 Ipratropium-Albuterol Nebulize 3 ml INHALATION RT-QID PRN 05/01/19 06/28/19 [Duoneb 0.5 mg-3 mg/3 ml Soln] Baclofen 5 mg PO TID 06/28/19 06/28/19 Promethazine 6.25MG/5Ml [Phenergan 6.25 mg PO Q6H PRN 06/28/19 06/28/19 Syrup] SILVER sulfADIAZINE Cream 1 applic TOPICAL BID 06/28/19 06/28/19 [Silvadene 1% Cream] rOPINIRole HCL [Requip] 0.25 mg PO HS 06/28/19 06/28/19 Previous Rx's Medication Instructions Recorded Lisinopril [Zestril] 10 mg PO DAILY #30 tab 01/15/19 amLODIPine [Norvasc] 10 mg PO DAILY #30 tab 01/15/19 Allergies Allergy/AdvReac Type Severity Reaction Status Date / Time No Known Allergies Allergy Verified 06/28/19 17:23 Review of Systems ROS Other: All systems not noted in ROS Statement are negative. <Augusto Beckford - Last Filed: 06/28/19 17:18> ROS Other: All systems not noted in ROS Statement are negative. <Marian Scott - Last Filed: 06/28/19 17:40> ROS Statement: Those systems with pertinent positive or pertinent negative responses have been documented in the HPI. Past Medical History Past Medical History: Cancer, CVA/TIA, GERD/Reflux, Hyperlipidemia, Hypertension, Osteoarthritis (OA) Additional Past Medical History / Comment(s): hx. uterine cancer, chemo 4 years ago, TIA several yrs. ago-forgetful, neuropathy feet & legs & hands, ANEMIA- RECENT OBV FOR BLOOD TRANSFUSION-11/07-11/08/17 History of Any Multi-Drug Resistant Organisms: None Reported Past Surgical History: Hysterectomy, Tonsillectomy Additional Past Surgical History / Comment(s): COLONOSCOPY. EGD. BILAT CATARACTS REMOVED Past Anesthesia/Blood Transfusion Reactions: No Reported Reaction Past Psychological History: Anxiety, Depression Smoking Status: Current every day smoker Past Alcohol Use History: None Reported Past Drug Use History: None Reported - Past Family History Mother Family Medical History: Cancer Father History Unknown: Yes Family Medical History: Cancer Brother(s) Family Medical History: Cancer <Marian Scott - Last Filed: 06/28/19 17:40> General Exam Limitations: no limitations <Marian Scott - Last Filed: 06/28/19 17:40> - General Exam Comments Initial Comments: General: The patient is awake and alert, in no distress Eye: Pupils are equal, round and reactive to light, extra-ocular movements are intact. No nystagmus. There is normal conjunctiva bilaterally. No signs of icterus. Ears, nose, mouth and throat: There are moist mucous membranes and no oral lesions. Neck: The neck is supple, there is no tenderness or JVD. Cardiovascular: There is a regular rate and rhythm. No murmur, rub or gallop is appreciated. Respiratory: Lungs are clear to auscultation, respirations are non-labored, breath sounds are equal. No wheezes, stridor, rales, or rhonchi. Gastrointestinal: Soft, non-distended, non-tender abdomen without masses or organomegaly noted. There is no rebound or guarding present. Rectal: No external emergency patient. No bright red blood per rectum. No dark red stool. There was a light brown small amount of stool in the rectal vault. Musculoskeletal: Normal ROM, no tenderness. Strength 5/5. Sensation intact. Pulses equal bilaterally 2+. Neurological: A&O x 3. CN II-XII intact grossly, There are no obvious motor or sensory deficits. Coordination appears grossly intact. Speech is normal. Skin: Skin is warm and dry and no rashes or lesions are noted. Psychiatric: Cooperative, appropriate mood & affect, normal judgment. (Marian Scott) Course <Augusto Beckford - Last Filed: 06/28/19 17:18> Vital Signs 06/28/19 15:37 Temperature 97.7 F Pulse Rate 100 Respiratory 22 Rate Blood Pressure 147/71 O2 Sat by Pulse 99 Oximetry - Reevaluation(s) Reevaluation #1: 06/28/19 17:18 Case, test results and ED management thus far were discussed with Dr. Calloway (GI ). She agrees with ED management thus far. She agrees to see the patient in consultation. She has no further recommendations at this time. 06/28/19 17:20 Case, test results, ED management thus far and my discussion with Dr. Calloway as above were discussed with Dr. Davila. He accepts hospital admission. He has no further recommendations at this time. (Augusto Beckford) Medical Decision Making - Lab Data Result diagrams: 06/28/19 15:49 06/28/19 15:49 <Augusto Beckford - Last Filed: 06/28/19 17:18> - Lab Data Result diagrams: 06/28/19 15:49 06/28/19 15:49 <Marian Scott - Last Filed: 06/28/19 17:40> - Lab Data Lab Results 06/28/19 06/28/19 06/28/19 Range/Units 15:49 15:49 15:49 WBC 6.6 (3.8-10.6) k/uL RBC 2.09 L (3.80-5.40) m/uL Hgb 6.7 L* D (11.4-16.0) gm/dL Hct 22.2 L (34.0-46.0) % MCV 106.0 H (80.0-100.0) fL MCH 32.0 (25.0-35.0) pg MCHC 30.1 L (31.0-37.0) g/dL RDW 16.7 H (11.5-15.5) % Plt Count 115 L D (150-450) k/uL Hypochromasia Marked Poikilocytosis Slight Anisocytosis Slight Macrocytosis Moderate APTT 26.6 (22.0-30.0) sec Sodium 143 (137-145) mmol/L Potassium 3.8 (3.5-5.1) mmol/L Chloride 112 H (98-107) mmol/L Carbon Dioxide 24 (22-30) mmol/L Anion Gap 7 mmol/L BUN 12 (7-17) mg/dL Creatinine 1.07 H (0.52-1.04) mg/dL Est GFR (CKD-EPI)AfAm 59 (>60 ml/min/1.73 sqM) Est GFR (CKD-EPI)NonAf 51 (>60 ml/min/1.73 sqM) Glucose 137 H (74-99) mg/dL Plasma Lactic Acid Gamaliel (0.7-2.0) mmol/L Calcium 8.3 L (8.4-10.2) mg/dL Total Bilirubin 0.4 (0.2-1.3) mg/dL AST 45 H (14-36) U/L ALT 15 (4-34) U/L Alkaline Phosphatase 165 H (38-126) U/L Troponin I (0.000-0.034) ng/mL Total Protein 8.0 (6.3-8.2) g/dL Albumin 3.1 L (3.5-5.0) g/dL Stool Occult Blood (Negative) Blood Type Blood Type Recheck Bld Type Recheck Status Antibody Screen Crossmatch Spec Expiration Date 06/28/19 06/28/19 06/28/19 Range/Units 15:49 15:49 15:49 WBC (3.8-10.6) k/uL RBC (3.80-5.40) m/uL Hgb (11.4-16.0) gm/dL Hct (34.0-46.0) % MCV (80.0-100.0) fL MCH (25.0-35.0) pg MCHC (31.0-37.0) g/dL RDW (11.5-15.5) % Plt Count (150-450) k/uL Hypochromasia Poikilocytosis Anisocytosis Macrocytosis APTT (22.0-30.0) sec Sodium (137-145) mmol/L Potassium (3.5-5.1) mmol/L Chloride (98-107) mmol/L Carbon Dioxide (22-30) mmol/L Anion Gap mmol/L BUN (7-17) mg/dL Creatinine (0.52-1.04) mg/dL Est GFR (CKD-EPI)AfAm (>60 ml/min/1.73 sqM) Est GFR (CKD-EPI)NonAf (>60 ml/min/1.73 sqM) Glucose (74-99) mg/dL Plasma Lactic Acid Gamaliel 2.2 H* (0.7-2.0) mmol/L Calcium (8.4-10.2) mg/dL Total Bilirubin (0.2-1.3) mg/dL AST (14-36) U/L ALT (4-34) U/L Alkaline Phosphatase (38-126) U/L Troponin I <0.012 (0.000-0.034) ng/mL Total Protein (6.3-8.2) g/dL Albumin (3.5-5.0) g/dL Stool Occult Blood (Negative) Blood Type O Positive Blood Type Recheck O Pos Bld Type Recheck Status No Antibody Screen NEGATIVE Crossmatch See Detail Spec Expiration Date 07/01/2019 - 234806/28/19 Range/Units 16:05 WBC (3.8-10.6) k/uL RBC (3.80-5.40) m/uL Hgb (11.4-16.0) gm/dL Hct (34.0-46.0) % MCV (80.0-100.0) fL MCH (25.0-35.0) pg MCHC (31.0-37.0) g/dL RDW (11.5-15.5) % Plt Count (150-450) k/uL Hypochromasia Poikilocytosis Anisocytosis Macrocytosis APTT (22.0-30.0) sec Sodium (137-145) mmol/L Potassium (3.5-5.1) mmol/L Chloride (98-107) mmol/L Carbon Dioxide (22-30) mmol/L Anion Gap mmol/L BUN (7-17) mg/dL Creatinine (0.52-1.04) mg/dL Est GFR (CKD-EPI)AfAm (>60 ml/min/1.73 sqM) Est GFR (CKD-EPI)NonAf (>60 ml/min/1.73 sqM) Glucose (74-99) mg/dL Plasma Lactic Acid Gamaliel (0.7-2.0) mmol/L Calcium (8.4-10.2) mg/dL Total Bilirubin (0.2-1.3) mg/dL AST (14-36) U/L ALT (4-34) U/L Alkaline Phosphatase (38-126) U/L Troponin I (0.000-0.034) ng/mL Total Protein (6.3-8.2) g/dL Albumin (3.5-5.0) g/dL Stool Occult Blood Positive H (Negative) Blood Type Blood Type Recheck Bld Type Recheck Status Antibody Screen Crossmatch Spec Expiration Date Disposition <AnalyAugusto - Last Filed: 06/28/19 17:18> Is patient prescribed a controlled substance at d/c from ED?: No Time of Disposition: 17:40 Decision to Admit Reason: Admit from EC Decision Date: 06/28/19 Decision Time: 17:40 <Marian Scott - Last Filed: 06/28/19 17:40> Clinical Impression: GI bleed, Anemia, Lactic acidosis Disposition: ADMITTED IP TO THIS HOSP Condition: Serious Referrals: Bebeto Davila MD [Primary Care Provider] - 1-2 days
[2019-06-28 16:36] LABS: Albumin 3.1 g/dL (3.5-5.0); Calcium 8.3 mg/dL (8.4-10.2); Potassium 3.8 mmol/L (3.5-5.1); Total Bilirubin 0.4 mg/dL (0.2-1.3)
[2019-06-28 16:47] LABS: Anisocytosis Slight; HCT 22.2 % (34.0-46.0); Hypochromasia Marked; MCHC 30.1 g/dL (31.0-37.0); Macrocytosis Moderate; Mean Platelet Volume 12.5; Poikilocytosis Slight; RBC 2.09 m/uL (3.80-5.40); RDW 16.7 % (11.5-15.5); WBC 6.6 k/uL (3.8-10.6)
[2019-06-28 16:50] LABS: HGB 6.7 gm/dL (11.4-16.0); Platelet Count 115 k/uL (150-450)
[2019-06-28] MEDS ORDERED: NALOXONE 0.4 MG/ML 1 ML VIAL IV PRN (17:09)
[2019-06-28 17:52] LABS: Lymphocytes # (M) 0.53 k/uL (1.0-4.8); Monocytes # (M) 0.13 k/uL (0-1.0); Neutrophils # (M) 5.94 k/uL (1.3-7.7); Neutrophils % (M) 90 %; Nucleated Red Blood Cells 0 /100 WBC (0-0); Polychromasia Present; Total Cells Counted 100
--- NOTE | 2019-06-28 18:38 | HP ---
HISTORY AND PHYSICAL A 74-year-old, white female who came to the emergency room with blood per rectum. She has had this ongoing for years. She has had dark stool but she does take iron supplementation. She noted today her stools were all bright red blood, multiple episodes throughout the day. Decided to come to the ER. Chronic weakness secondary to this bleeding. She denied any chest pain or shortness of breath. Denied any rectal pain, nausea, vomiting, or hematemesis. Denies any anticoagulation therapy or issues with blood clotting. Hemoglobin was found to be in the 6's, at which time she was transfused some blood. MEDICATIONS: Home medicines include Requip, Phenergan, Silvadene cream, DuoNeb, Tylenol, Namenda, Neurontin, Lexapro, Zyrtec, Prilosec, Synthroid, Aricept, ferrous sulfate, vitamin D3. ALLERGIES: Negative. REVIEW OF SYSTEMS: A 14-point review of systems is negative except for mentioned in the HPI. PAST MEDICAL HISTORY: CVA, TIA, cancer, GERD, dyslipidemia, hypertension, osteoarthritis, neuropathy, dementia, uterine cancer, TIA, anemia, hysterectomy, tonsillectomy, bilateral cataracts, EGD and colonoscopy at some time in the past. SOCIAL HISTORY: Current every day smoker. History of anxiety and depression. FAMILY HISTORY: Mother had cancer. Father had cancer. Brother had cancer. PHYSICAL EXAMINATION: Temperature 97, pulse around 100, respiratory rate 18 to 22, blood pressure 147/71, O2 99%. NEUROLOGIC: Cranial nerves are intact. Moving four extremities. SKIN: Warm and dry. PSYCH: Normal judgment, mood, affect. Cooperative. CONSTITUTIONAL: No acute distress. HEENT: Pupils equal, round, and reactive to light and accommodation. LUNGS: Clear. CARDIOVASCULAR: No wheezes, rales, or excoriations. GI: Soft. No organomegaly. No rebound. No guarding. No dark stool. No bright red blood. Hemoglobin 6.7, hematocrit 22. BUN 12, creatinine 1.07, sodium 143, potassium 3.8. Platelets 115. AST 45, ALT 15, alkaline phosphatase 165, albumin 3.1. Stool was positive for blood. ASSESSMENT: 1. Severe anemia and gastrointestinal bleed. 2. Lactic acidosis. 3. History of hypothyroidism. 4. History of allergies. 5. History of chronic obstructive pulmonary disease. 6. Nicotine addiction. 7. Hypertension. 8. Chronic neuropathy. 9. Memory loss. 10.Prior stroke. 11.Depression. Continue with current home medicines. Transfuse as necessary to keep hemoglobin above 7. Wait for GI consult. MMANGE / RUTHN: [id number] /
[2019-06-28] MEDS: IPRATROPIUM-ALBUTEROL 3 ML NEB INHALATION PRN (20:17)
[2019-06-28] MEDS: GABAPENTIN 400 MG CAP PO SCH (21:47)
[2019-06-28] MEDS: MEMANTINE 10 MG TAB PO SCH (21:47)
[2019-06-28] MEDS: BACLOFEN 10 MG TAB PO SCH (21:47)
[2019-06-28] MEDS: DONEPEZIL 10 MG TAB PO SCH (21:47)
[2019-06-28] MEDS: SODIUM CHLORIDE 0.9% 1,000 ML IV SCH (23:47)
[2019-06-29 00:40] LABS: Anisocytosis Slight; HCT 21.8 % (34.0-46.0); Hypochromasia Marked; MCH 31.2 pg (25.0-35.0); Macrocytosis Moderate; Mean Platelet Volume 12.4; Poikilocytosis Moderate; RBC 2.09 m/uL (3.80-5.40); RDW 17.3 % (11.5-15.5); WBC 5.6 k/uL (3.8-10.6)
[2019-06-29 00:44] LABS: HGB 6.5 gm/dL (11.4-16.0)
[2019-06-29 01:01] LABS: Lymphocytes # (M) 0.62 k/uL (1.0-4.8); Monocytes # (M) 0.45 k/uL (0-1.0); Neutrophils # (M) 4.54 k/uL (1.3-7.7); Neutrophils % (M) 81 %; Nucleated Red Blood Cells 0 /100 WBC (0-0); Total Cells Counted 100
[2019-06-29 01:02] LABS: Large Platelets Present; Platelet Count 76 k/uL (150-450); Target Cells Present
[2019-06-29 05:20] LABS: Anisocytosis Slight; HCT 23.2 % (34.0-46.0); HGB 7.1 gm/dL (11.4-16.0); Hypochromasia Marked; MCH 30.9 pg (25.0-35.0); MCHC 30.8 g/dL (31.0-37.0); MCV 100.4 fL (80.0-100.0); Macrocytosis Moderate; Mean Platelet Volume 11.2; Poikilocytosis Moderate; RBC 2.31 m/uL (3.80-5.40); RDW 18.7 % (11.5-15.5); WBC 4.5 k/uL (3.8-10.6)
[2019-06-29 05:24] LABS: Platelet Count 62 k/uL (150-450)
[2019-06-29] MEDS: SODIUM CHLORIDE 0.9% 1,000 ML IV SCH ×4 (05:33→12:32)
[2019-06-29] MEDS: LEVOTHYROXINE 25 MCG TAB PO SCH (06:38)
[2019-06-29] MEDS: BACLOFEN 10 MG TAB PO SCH ×3 (08:32→21:49)
[2019-06-29] MEDS: ESCITALOPRAM 10 MG TAB PO SCH (08:32)
[2019-06-29] MEDS: GABAPENTIN 400 MG CAP PO SCH ×3 (08:32→21:49)
[2019-06-29] MEDS: MEMANTINE 10 MG TAB PO SCH ×2 (08:32→22:07)
[2019-06-29] MEDS: LISINOPRIL 10 MG TAB PO SCH (08:32)
[2019-06-29] MEDS: LORATADINE 10 MG TAB PO SCH (08:32)
[2019-06-29] MEDS: amLODIPine 10 MG TAB PO SCH (08:32)
[2019-06-29] MEDS: IPRATROPIUM-ALBUTEROL 3 ML NEB INHALATION PRN ×2 (08:37→11:54)
[2019-06-29] MEDS ORDERED: PANTOPRAZOLE 40 MG TABLET PO SCH (09:00)
--- NOTE | 2019-06-29 13:06 | P.PN ---
Subjective Progress Note Date: 06/29/19 This is a 74-year-old female admitted with severe anemia, GI bleed and multiple other medical issues. GI consulted, recommendations pending. Hemoglobin currently 7.1. Denies rectal bleeding, no bright red or dark tarry stools. Denies hemoptysis or hematemesis. Denies nausea, or vomiting. Denies abdominal pain. Reports diarrhea 1 today, reports chronic diarrhea of multiple months. Reports last colonoscopy normal, 2 years ago. Objective - Vital Signs Vital signs: Vital Signs Temp 98.1 F 06/29/19 08:00 Pulse 84 06/29/19 12:08 Resp 18 06/29/19 08:00 BP 121/52 06/29/19 08:00 Pulse Ox 93 L 06/29/19 08:00 Intake & Output 06/28/19 06/29/19 06/29/19 18:59 06:59 18:59 Intake Total 0 1220 Balance 0 1220 Weight 65.771 kg 64.9 kg Intake: Intake, IV Titration 600 Amount Sodium Chloride 0.9% 1, 600 000 ml @ 120 mls/hr IV . Q8H20M [facility] Rx#:[id number] Blood Product 0 620 Rc Pheresis 2 As3 Unit 0 310 [id number] Rc Pheresis As-3 Unit 310 [id number] Other: # Voids 0 1 - Exam PHYSICAL EXAM: VITAL SIGNS: As above GENERAL: Sitting up in bed, no acute HEENT: Conjunctivae normal. eyes normal. NECK: No JVD. No thyroid enlargement. No LNs CARDIOVASCULAR: S1, S2 regular.. No murmur RESPIRATION: Breath sounds diminished in the bases. No rhonchi or crackles. No bronchial breathing. ABDOMEN: Soft, nontender . No guarding. no masses palpable. No ascites, No hepatosplenomegaly.Bowel sounds heard. LEGS: No edema. no swelling PSYCHIATRY: Alert and oriented X3, mood and affect normal. NERVOUS SYSTEM: Cranial N 2-12 grossly normal. No focal deficits. Strength and sensation grossly intact.. Skin: no lesions, no rash Lymphatic system. No LN neck axilla. - Labs CBC & Chem 7: 06/29/19 04:53 06/28/19 15:49 Labs: Abnormal Lab Results - Last 24 Hours (Table) 06/28/19 06/28/19 06/28/19 Range/Units 15:49 15:49 15:49 RBC 2.09 L (3.80-5.40) m/uL Hgb 6.7 L* D (11.4-16.0) gm/dL Hct 22.2 L (34.0-46.0) % MCV 106.0 H (80.0-100.0) fL MCHC 30.1 L (31.0-37.0) g/dL RDW 16.7 H (11.5-15.5) % Plt Count 115 L D (150-450) k/uL Lymphocytes # (Manual) 0.53 L (1.0-4.8) k/uL Chloride 112 H (98-107) mmol/L Creatinine 1.07 H (0.52-1.04) mg/dL Glucose 137 H (74-99) mg/dL Plasma Lactic Acid Gamaliel 2.2 H* (0.7-2.0) mmol/L Calcium 8.3 L (8.4-10.2) mg/dL AST 45 H (14-36) U/L Alkaline Phosphatase 165 H (38-126) U/L Albumin 3.1 L (3.5-5.0) g/dL Stool Occult Blood (Negative) Crossmatch 06/28/19 06/28/19 06/28/19 Range/Units 15:49 16:05 23:56 RBC 2.09 L (3.80-5.40) m/uL Hgb 6.5 L* (11.4-16.0) gm/dL Hct 21.8 L (34.0-46.0) % MCV 104.0 H (80.0-100.0) fL MCHC 30.0 L (31.0-37.0) g/dL RDW 17.3 H (11.5-15.5) % Plt Count 76 L (150-450) k/uL Lymphocytes # (Manual) 0.62 L (1.0-4.8) k/uL Chloride (98-107) mmol/L Creatinine (0.52-1.04) mg/dL Glucose (74-99) mg/dL Plasma Lactic Acid Gamaliel (0.7-2.0) mmol/L Calcium (8.4-10.2) mg/dL AST (14-36) U/L Alkaline Phosphatase (38-126) U/L Albumin (3.5-5.0) g/dL Stool Occult Blood Positive H (Negative) Crossmatch See Detail 06/29/19 Range/Units 04:53 RBC 2.31 L (3.80-5.40) m/uL Hgb 7.1 L (11.4-16.0) gm/dL Hct 23.2 L (34.0-46.0) % MCV 100.4 H (80.0-100.0) fL MCHC 30.8 L (31.0-37.0) g/dL RDW 18.7 H (11.5-15.5) % Plt Count 62 L (150-450) k/uL Lymphocytes # (Manual) (1.0-4.8) k/uL Chloride (98-107) mmol/L Creatinine (0.52-1.04) mg/dL Glucose (74-99) mg/dL Plasma Lactic Acid Gamaliel (0.7-2.0) mmol/L Calcium (8.4-10.2) mg/dL AST (14-36) U/L Alkaline Phosphatase (38-126) U/L Albumin (3.5-5.0) g/dL Stool Occult Blood (Negative) Crossmatch Assessment and Plan Assessment: Severe anemia with GI Bleed Lactic acidosis Chronic diarrhea months Hypothyroidism COPD Nicotine dependence Hypertension Chronic neuropathy Prior CVA with Memory loss Depression Plan: Continue current medication regime ,monitoring and symptomatic treatment. Close monitoring of coags with serial CBCs ordered. GI consult in place, recommendations pending. The impression and plan of care has been dictated as directed. : I performed a history and examination of this patient, discussed the same with the dictator. I agree with the dictator's note ,documented as a scribe. Any a dditional findings or plans will be noted.
[2019-06-29 14:58] LABS: Anisocytosis Slight; HCT 25.9 % (34.0-46.0); HGB 7.9 gm/dL (11.4-16.0); Hypochromasia Marked; MCH 31.4 pg (25.0-35.0); MCHC 30.6 g/dL (31.0-37.0); MCV 102.4 fL (80.0-100.0); Macrocytosis Moderate; Mean Platelet Volume 12.1; Poikilocytosis Moderate; RBC 2.53 m/uL (3.80-5.40); RDW 18.6 % (11.5-15.5)
[2019-06-29 15:22] LABS: Platelet Count 75 k/uL (150-450)
--- NOTE | 2019-06-29 16:19 | CONS ---
CONSULTATION DATE OF DICTATION: 06/29/2019. REQUESTING PHYSICIAN: Dr. Bebeto Davila. REASON FOR CONSULTATION: Acute GI bleed. HISTORY OF PRESENT ILLNESS: The patient is a 70-year-old pleasant white female with history of alcoholic cirrhosis of the liver diagnosed 3 years ago, admitted to hospital because she had some dark colored stools that happened yesterday. She had about 2 episodes of dark maroon- colored stools with no associated abdominal pain. No nausea, vomiting. She came to the emergency room and was noted to have a hemoglobin of 7.1 g/dL requiring 2 units of blood transfusion. Since being in the hospital, she did not have any further episodes of bleeding. She never had these in the past. Last EGD and colonoscopy done by me in July of 2017 did show evidence of small esophageal varices and colon polyp. The patient denies any prior history of peptic ulcer disease or recent NSAID use. PAST MEDICAL HISTORY: Significant for alcoholic cirrhosis of the liver, history of hypertension, hyperlipidemia, anxiety, depression, hypothyroidism, degenerative joint disease, gastroesophageal reflux disease and history of CVA in the past. PAST SURGICAL HISTORY: Hysterectomy, tonsillectomy, EGD and colonoscopy July of 2017, bilateral cataract surgery. MEDICATIONS: At home include vitamin D3, Aricept, Synthroid, Prilosec, Zyrtec, Lexapro, Neurontin, Namenda, Tylenol, Baclofen, Phenergan, Silvadene and Requip. ALLERGIES: None. FAMILY HISTORY: Mother had some kind of cancer. Brother also had some kind of cancer. PHYSICAL EXAMINATION: She appears comfortable in no apparent distress. VITAL SIGNS: Stable. Blood pressure is 132/86, pulse rate 82, temperature 98. HEENT examination unremarkable. Conjunctivae pink. Sclerae anicteric. Oral cavity no lesions. NECK: No JVD or lymph node enlargement. CHEST: Clear to auscultation. HEART: Regular rate and rhythm. ABDOMEN: Soft. Bowel sounds are positive. No organomegaly. EXTREMITIES: No pedal edema. SKIN no rashes. NEURO: She is alert and oriented x3. No focal deficits. LABS: Hemoglobin 6.5, WBC 5, platelets are 76,000. AST, ALT, 45 and 15 respectively. T- bilirubin and alkaline phosphatase are within normal limits. BUN was 12, creatinine 1.07. Stool occult blood was positive. She received 2 units of blood transfusion. Repeat hemoglobin today is 7.9 g/dL. IMPRESSION: 1. Acute gastrointestinal bleed with multiple episodes of maroon-colored stool in this lady with history of alcoholic cirrhosis of the liver. Last EGD, colonoscopy July of 2017 showed small esophageal varices and colon polyps. At this time, likely we are dealing with an upper gastrointestinal source of bleeding. Hemoglobin was 6.5, received 2 units of blood transfusion. Last hemoglobin is 7.9 g/dL. Since being in the hospital, she had no further episodes of bleeding. 2. History of hypertension. 3. Hyperlipidemia. 4. Hypothyroidism. RECOMMENDATIONS: 1. Continue with Protonix 40 mg q.12 hours. 2. CBC q.12 hours. 3. We will proceed with an upper endoscopy tomorrow. I discussed with the patient the risks, benefits and complications of the procedure and she is agreeable to it. Thank you for this consultation. LUCEROL / IJN: [id number] /
[2019-06-29] MEDS: IPRATROPIUM-ALBUTEROL 3 ML NEB INHALATION SCH ×2 (16:43→20:20)
[2019-06-29] MEDS: PANTOPRAZOLE 40 MG TABLET PO SCH (17:19)
[2019-06-29] MEDS: DONEPEZIL 10 MG TAB PO SCH (21:49)
[2019-06-30] MEDS: SODIUM CHLORIDE 0.9% 1,000 ML IV SCH ×2 (04:29→12:25)
[2019-06-30] MEDS: LEVOTHYROXINE 25 MCG TAB PO SCH (04:33)
[2019-06-30] MEDS: IPRATROPIUM-ALBUTEROL 3 ML NEB INHALATION SCH ×2 (08:26→12:16)
[2019-06-30] MEDS ORDERED: LIDOCAINE 1% INJ 10MG/ML (20 ML MDV) ONE (10:02)
[2019-06-30] MEDS ORDERED: PROPOFOL 10 MG/ML 20 ML VIAL IV ONE (10:02)
[2019-06-30] MEDS ORDERED: IV FLUID CONTINUATION 300 ML IV ONE (10:06)
--- NOTE | 2019-06-30 10:23 | P.PCN ---
Date of Procedure: 06/30/19 Procedure(s) Performed: BRIEF HISTORY: Patient is a 74-year-old, pleasant, scheduled for an upper endoscopy as a part of evaluation of acute GI bleed. She presented with dark- colored stools/melena. Hemoglobin was Hemoglobin 6.5 g/dL requiring 2 units of transfusion. History of alcoholic cirrhosis of the liver and last EGD colonoscopy in July 2017 showed small esophageal varices and transverse colon polyps. PROCEDURE PERFORMED: Esophagogastroduodenoscopy with variceal ligation. PREOPERATIVE DIAGNOSIS: Acute GI bleed. IV sedation per anesthesia. PROCEDURE: After informed consent was obtained, the patient was brought into the endoscopy unit. IV sedation was administered by Anesthesia under continuous monitoring. Initially the Olympus GIF-140 video endoscope was inserted into the mouth. Esophagus intubated without any difficulty. It was gradually advanced into the stomach and duodenum and carefully examined. The bulb and the second part of the duodenum appeared normal. The scope at this time was withdrawn to the stomach, adequately insufflated with air, and upon careful examination, muc shoshana of the antrum, body, appeared normal. In the cardia and the fundus there were changes consistent with mild portal hypertensive gastropathy. The scope was then withdrawn into the esophagus. The GE junction was located at 39 cm from the incisors. There was a large mid/distal esophageal varices seen but no evidence of active bleeding or stigmata of recent bleed. With no obvious etiology identified it is likely that her recent episode of bleeding is variceal in nature. Hence I proceeded with variceal ligation and total of7 bands were deployed in the mid and distal esophageal varices. The proximal esophagus appeared normal and the patient tolerated the procedure well. IMPRESSION: 1. Large mid/distal esophageal varices with no stigmata of recent bleed status post variceal ligation as described above. 2. Mild portal hypertensive gastropathy. RECOMMENDATIONS: The findings of this examination were discussed with the patient. She'll be started on a soft diet. Monitor CBC daily. We'll start her on nonselective beta blockers with Inderal 10 mg 3 times daily at the time of discharge from the hospital to prevent recurrent esophageal variceal bleeding. She she can be discharged home later today or tomorrow with outpatient follow-up in 2 weeks.
[2019-06-30 11:45] VITALS: BP 124/59; RESP 17; TEMP 98.1
[2019-06-30] MEDS: BACLOFEN 10 MG TAB PO SCH (12:25)
[2019-06-30] MEDS: MEMANTINE 10 MG TAB PO SCH (12:25)
[2019-06-30] MEDS: GABAPENTIN 400 MG CAP PO SCH (12:25)
[2019-06-30 12:28] VITALS: PULSE 85
--- NOTE | 2019-06-30 12:28 | CDI ---
Documentation Clarification Form Date: 06/30/2019 12:09:45 PM From: Gillian Estrada RN, CCDS Admit Date: 06/28/2019 05:21:00 PM Patient Name: Lexii Vale Visit Number: [id number] ATTENTION: The Clinical Documentation Specialists (CDI) and [facility] Coding Staff appreciate your assistance in clarifying documentation. Please respond to the clarification below the line at the bottom and electronically sign. The CDI & [facility] Coding staff will review the response and follow-up if needed. Please note: Queries are made part of the Legal Health Record. If you have any questions, please contact the author of this message via ITS. Dr. Bebeto Davila Anemia is documented in the H&P and progress Notes and requires further specificity. History/Risk Factors: Chronic diarrhea, Anemia, TIA, ETOH, Smoker, alcoholic liver cirrhosis Clinical indicators: 06/28 Attending Progress note: "Severe anemia with GI Bleed." 06/29 EGD Procedure: "There was a large mid/distal esophageal varices seen but no evidence of active bleeding or stigmata of recent bleed. With no obvious etiology identified it is likely that her recent episode of bleeding is variceal in nature. Hence I proceeded with variceal ligation and total of7 bands were deployed in the mid and distal esophageal varices." Hemoglobin: 6.7/6.5/7.1/7.9 Hematocrit: 22.2/21.8/23.2/25.9 Treatment: 2 units PRBC transfused Continuous 0.9% NS @ 120 cc/hr In order to capture the severity of condition, please clarify the type of anemia and etiology if known. Acute blood loss Anemia Acute on chronic blood loss anemia Chronic blood loss anemia Iron deficiency anemia Nutritional anemia Anemia of chronic disease Unable to determine Other, please specify (Last Form Revision: May 2019) MTDD
[2019-06-30] MEDS: LISINOPRIL 10 MG TAB PO SCH (12:31)
[2019-06-30] MEDS: ESCITALOPRAM 10 MG TAB PO SCH (12:31)
[2019-06-30] MEDS: LORATADINE 10 MG TAB PO SCH (12:31)
[2019-06-30] MEDS: amLODIPine 10 MG TAB PO SCH (12:31)
[2019-06-30] MEDS: PANTOPRAZOLE 40 MG TABLET PO SCH (12:31)
--- NOTE | 2019-06-30 13:11 | P.DS ---
Providers Date of admission: 06/28/19 17:21 Expected date of discharge: 06/30/19 Attending physician: Bebeto Davila Consults: 06/28/19 17:09 Consult Physician Routine Consulting Provider: Lizbeth Calloway Consult Reason/Comments: GI bleed, anemia Do you want consulting provider notified?: Yes Primary care physician: Bebeto Davila [facility] Course: final DIagnoses: Severe acute blood loss anemia secondary to Large mid/distalesophageal bleed, s/p banding.s/p 2 units of PRBCs. Chronic diarrhea months Hypothyroidism COPD Nicotine dependence Hypertension Chronic neuropathy Prior CVA with Memory loss Depression Hospital COurse:This is a 74-year-old female admitted with severe anemia, GI bleed and multiple other medical issues. GI consulted, recommendations pending. Hemoglobin currently 7.1. Denies rectal bleeding, no bright red or dark tarry stools. Denies hemoptysis or hematemesis. Denies nausea, or vomiting. Denies abdominal pain. Reports diarrhea 1 today, reports chronic diarrhea of multiple months. Reports last colonoscopy normal, 2 years ago. Underwent EGD with GI, reporting large mid/distal esophageal bleed, s/p banding.tolerated procedure well. Significant clinical improvement. CLeared by GI for discharge.Patient is being discharged home in a stable condition with guarded prognosis.Advised of close monitoring of hemoglobin. Patient instructed to have labs drawn at Dr. Davila's office this , 07/02/19. EXAM: GENERAL: A & O X 3, NACD. CARDIOVASCULAR: S1, S2 regular.No murmur RESPIRATION: Breath sounds diminished in the bases. ABDOMEN: Soft, nontender . No guarding. no masses palpable. Positive Bowel sounds heard. NERVOUS SYSTEM: No focal deficits. The impression and plan of care has been dictated as directed. : I performed a history and examination of this patient, discussed the same with the dictator. I agree with the dictator's note ,documented as a scribe. Any additional findings or plans will be noted. Patient Condition at Discharge: Stable Plan - Discharge Summary Discharge Rx Participant: Yes New Discharge Prescriptions: New Propranolol [Inderal] 10 mg PO TID #90 tab Continue Cholecalciferol [Vitamin D3 (25 Mcg = 1000 Iu)] 5,000 unit PO DAILY Ferrous Sulfate [Feosol] 325 mg PO BID Omeprazole [PriLOSEC] 40 mg PO DAILY Levothyroxine Sodium [Synthroid] 25 mcg PO DAILY Donepezil [Aricept] 10 mg PO HS Memantine [Namenda] 10 mg PO BID Escitalopram [Lexapro] 10 mg PO DAILY Cetirizine HCl [Zyrtec] 10 mg PO DAILY Gabapentin [Neurontin] 800 mg PO TID amLODIPine [Norvasc] 10 mg PO DAILY #30 tab Lisinopril [Zestril] 10 mg PO DAILY #30 tab Acetaminophen Tab [Tylenol] 650 mg PO Q6H PRN PRN Reason: Pain Ipratropium-Albuterol Nebulize [Duoneb 0.5 mg-3 mg/3 ml Soln] 3 ml INHALATION RT-QID PRN PRN Reason: Shortness Of Breath rOPINIRole HCL [Requip] 0.25 mg PO HS Promethazine 6.25MG/5Ml [Phenergan Syrup] 6.25 mg PO Q6H PRN PRN Reason: Cough Baclofen 5 mg PO TID SILVER sulfADIAZINE Cream [Silvadene 1% Cream] 1 applic TOPICAL BID Discharge Medication List Cholecalciferol [Vitamin D3 (25 Mcg = 1000 Iu)] 5,000 unit PO DAILY 10/29/16 [History] Ferrous Sulfate [Feosol] 325 mg PO BID 10/29/16 [History] Donepezil [Aricept] 10 mg PO HS 11/07/17 [History] Levothyroxine Sodium [Synthroid] 25 mcg PO DAILY 11/07/17 [History] Omeprazole [PriLOSEC] 40 mg PO DAILY 11/07/17 [History] Cetirizine HCl [Zyrtec] 10 mg PO DAILY 01/14/19 [History] Escitalopram [Lexapro] 10 mg PO DAILY 01/14/19 [History] Gabapentin [Neurontin] 800 mg PO TID 01/14/19 [History] Memantine [Namenda] 10 mg PO BID 01/14/19 [History] Lisinopril [Zestril] 10 mg PO DAILY #30 tab 01/15/19 [Rx] amLODIPine [Norvasc] 10 mg PO DAILY #30 tab 01/15/19 [Rx] Acetaminophen Tab [Tylenol] 650 mg PO Q6H PRN 05/01/19 [History] Ipratropium-Albuterol Nebulize [Duoneb 0.5 mg-3 mg/3 ml Soln] 3 ml INHALATION RT-QID PRN 05/01/19 [History] Baclofen 5 mg PO TID 06/28/19 [History] Promethazine 6.25MG/5Ml [Phenergan Syrup] 6.25 mg PO Q6H PRN 06/28/19 [History] SILVER sulfADIAZINE Cream [Silvadene 1% Cream] 1 applic TOPICAL BID 06/28/19 [History] rOPINIRole HCL [Requip] 0.25 mg PO HS 06/28/19 [History] Propranolol [Inderal] 10 mg PO TID #90 tab 06/30/19 [Rx] Follow up Appointment(s)/Referral(s): Bebeto Davila MD [Primary Care Provider] - 3 Days Lizbeth Calloway MD [STAFF PHYSICIAN] - 2 Weeks Ambulatory/Diagnostic Orders: Complete Blood Count w/diff [LAB.AMB] Location: None Selected Activity/Diet/Wound Care/Special Instructions: recehck HGB this am 07/02/[address] Davila's office.
[2019-06-30] MEDS ORDERED: LACTATED RINGERS 1,000 ML IV SCH (21:30)
== END 2019-06-30 16:15 | disposition home or self-care (01) | DRG 432 ==
LOC: EC 15:28 → 3SCARD 17:21 → 5NMEDONC 06-29 11:32
PROVIDERS: ADMIT Family Medicine; ATTEND Family Medicine
PROC: 30233N1 Transfusion of Nonautologous Red Blood Cells into Peripheral Vein, Percutaneous Approach (ICD-10-PCS; 2019-06-28)
PROC: 06L38CZ Occlusion of Esophageal Vein with Extraluminal Device, Via Natural or Artificial Opening Endoscopic (ICD-10-PCS; principal; 2019-06-30 09:15)
DX: K70.30 Alcoholic cirrhosis of liver without ascites (principal); I85.11 Secondary esophageal varices with bleeding; D62 Acute posthemorrhagic anemia; E87.2 Acidosis; K76.6 Portal hypertension; J44.9 Chronic obstructive pulmonary disease, unspecified; E03.9 Hypothyroidism, unspecified; E78.5 Hyperlipidemia, unspecified; F03.90 Unspecified dementia, unspecified severity, without behavioral disturbance, psychotic disturbance, mood disturbance, and anxiety; F17.210 Nicotine dependence, cigarettes, uncomplicated; F32.9 Major depressive disorder, single episode, unspecified; G62.9 Polyneuropathy, unspecified; I10 Essential (primary) hypertension; K31.89 Other diseases of stomach and duodenum; K52.9 Noninfective gastroenteritis and colitis, unspecified; Z86.010 Personal history of colon polyps; G47.33 Obstructive sleep apnea (adult) (pediatric); Z79.890 Hormone replacement therapy; Z80.9 Family history of malignant neoplasm, unspecified; Z85.42 Personal history of malignant neoplasm of other parts of uterus; Z86.73 Personal history of transient ischemic attack (TIA), and cerebral infarction without residual deficits; Z87.19 Personal history of other diseases of the digestive system; Z90.710 Acquired absence of both cervix and uterus; Z92.21 Personal history of antineoplastic chemotherapy
CPT/HCPCS: 36415; 36430; 43255; 80053; 82272; 83605; 84484; 85025; 85027; 85730; 86850; 86900; 86901; 86920; 93005; 94640; 94760; 96374; 99285

== ENCOUNTER 2019-07-21 09:39 | Inpatient (IN) | payer MEDICARE ==
[2019-07-21] MEDS ORDERED: IPRATROPIUM-ALBUTEROL 3 ML NEB INHALATION PRN (11:10)
[2019-07-21 11:41] LABS: Anisocytosis Slight; HCT 21.4 % (34.0-46.0); Hypochromasia Marked; MCH 31.1 pg (25.0-35.0); MCHC 29.4 g/dL (31.0-37.0); MCV 105.7 fL (80.0-100.0); Macrocytosis Marked; Mean Platelet Volume 11.8; Platelet Count 114 k/uL (150-450); Poikilocytosis Slight; RBC 2.03 m/uL (3.80-5.40); RDW 18.4 % (11.5-15.5); WBC 8.3 k/uL (3.8-10.6)
[2019-07-21 11:44] LABS: HGB 6.3 gm/dL (11.4-16.0)
[2019-07-21] MEDS: IPRATROPIUM-ALBUTEROL 3 ML NEB INHALATION SCH ×3 (11:45→19:33)
[2019-07-21 12:00] LABS: Albumin 2.7 g/dL (3.5-5.0); Calcium 7.8 mg/dL (8.4-10.2); Magnesium 1.4 mg/dL (1.6-2.3); Potassium 3.8 mmol/L (3.5-5.1); Total Bilirubin 0.6 mg/dL (0.2-1.3); Total Protein 7.4 g/dL (6.3-8.2)
[2019-07-21 12:17] LABS: Eosinophils # (M) 0.08 k/uL (0-0.7); Monocytes # (M) 0.25 k/uL (0-1.0); Neutrophils # (M) 6.97 k/uL (1.3-7.7); Neutrophils % (M) 84 %; Nucleated Red Blood Cells 0 /100 WBC (0-0); Rouleaux Present; Total Cells Counted 100
[2019-07-21 12:18] LABS: Polychromasia Present
[2019-07-21] MEDS: SODIUM CHLORIDE 0.9% 1,000 ML IV SCH (12:37)
[2019-07-21] MEDS: PANTOPRAZOLE 40 MG/10 ML VIAL IVP SCH (12:37)
--- NOTE | 2019-07-21 14:44 | CONS ---
CONSULTATION DATE OF SERVICE: 07/21/2019 REASON FOR CONSULTATION: Severe symptomatic anemia and active GI bleed. HISTORY OF PRESENT ILLNESS: Patient is a 74-year-old pleasant white female with history of alcoholic cirrhosis of the liver, recent hospitalization with acute GI bleed, underwent an EGD on June 28 and was noted to have nonbleeding distal esophageal varices for which she underwent variceal ligation. During her last hospitalization, her hemoglobin was 6. She received 3 units of blood transfusion and she was discharged home. She called me yesterday afternoon complaining of dark-colored stools for the last 2 days, she is somewhat weak and dizzy and hence she was advised to follow up in the office this morning. He subsequently had routine labs done. She is subsequently had a STAT CBC which was reported as 6.1, and hence the patient was directly admitted to the hospital by Dr. Bebeto Davila. The patient has been complaining of cramping lower abdominal pain, for the last 3 days has been having dark colored stools. She states it is sometimes black and sometimes it is red in color. She denies any nausea, vomiting. No epigastric pain. Last EGD as mentioned earlier was in June 29, 2019 which revealed esophageal varices. Her last colonoscopy was in 2018 that showed a small polyp. PAST MEDICAL HISTORY: Significant for hypertension, hyperlipidemia, degenerative joint disease, gastroesophageal reflux disease, alcoholic cirrhosis diagnosed 3 years ago, history of uterine cancer diagnosed 5 years ago. PAST SURGICAL HISTORY: Tonsillectomy, hysterectomy, bilateral cataract surgery, EGD, colonoscopy as mentioned above. MEDICATIONS: At home include Requip, Norvasc, Lexapro, Feosol, Neurontin, Prilosec Namenda, Zestril, Synthroid, Zyrtec, vitamin D, Lasix, Aricept, vitamin D3 and Tylenol and baclofen. ALLERGIES: None. SOCIAL HISTORY: No smoking, remote history of alcohol use. Quit drinking 4 years ago. FAMILY HISTORY: Unremarkable. REVIEW OF SYSTEMS: CARDIOPULMONARY: She denies any chest pain, shortness of breath. GENITOURINARY: No dysuria, hematuria. MUSCULOSKELETAL: Some back pain. NEUROLOGY: Unremarkable. PSYCHIATRIC: Unremarkable. ENT/VISION: Unremarkable. CONSTITUTIONAL: Pitting, weakness. No fever, chills, or night sweats. HEMATOLOGY: Severe anemia, PHYSICAL EXAMINATION: She appears comfortable, in no apparent distress. VITAL SIGNS: Stable. Blood pressure is 122/75, pulse 72, temperature 97.6. HEENT: Examination unremarkable. Conjunctivae are pink. Sclerae nonicteric. Oral cavity no lesions. NECK No JVD or lymph node enlargement. CHEST: Clear to auscultation. HEART: Regular rate and rhythm. ABDOMEN: Soft, it was there was mild tenderness in the lower abdominal area. The abdomen was benign. There was no free fluid noted. EXTREMITIES: 2+ pedal edema. SKIN: No rashes. NEURO: She is alert and oriented x3. No focal deficits. LABS: Done at the time of lab done this early this morning on outpatient basis, hemoglobin was 8.3, WBC 6.1, platelets 1 1 4, hemoglobin 2 weeks ago was 7.9, creatinine 1.17. AST, ALT, T-bilirubin and alkaline phosphatase are normal. Albumin is 2.7. INR is 1.3. IMPRESSION: 1. Severe symptomatic anemia with a hemoglobin of 6.3 and active GI bleed. Patient has been having some dark colored stools and occasionally bright red blood per rectum. She just had an EGD 2 weeks ago 3 weeks ago for the symptoms and was noted to have nonbleeding esophageal varices that were ligated at this time possibility of rectal bleeding from esophageal varices needs to be considered, but colonic source cannot be entirely excluded. 2. Severe symptomatic anemia with a hemoglobin of 6.3. 3. History of alcoholic cirrhosis of the liver. 4. History of hypertension and hyperlipidemia. 5. History of uterine cancer diagnosed 4 years ago, status post surgery and chemotherapy. RECOMMENDATIONS: 1. Agree with blood transfusion. 2. Monitor CBC every 8 hours. 3. We will schedule for a repeat upper endoscopy tomorrow by Dr. Hull. 4. Protonix 40 mg q.12 hours. 5. Will follow with you closely. Thank you for this consultation. MMODL / IJN: [id number] /
[2019-07-21] MEDS: NICOTINE 14MG/24HR PATCH TRANSDERM SCH (19:21)
[2019-07-21 20:17] LABS: Anisocytosis Slight; Hypochromasia Marked; MCH 30.2 pg (25.0-35.0); MCHC 28.9 g/dL (31.0-37.0); MCV 104.4 fL (80.0-100.0); Macrocytosis Marked; Mean Platelet Volume 11.9; Poikilocytosis Slight; RBC 1.77 m/uL (3.80-5.40); RDW 18.1 % (11.5-15.5); WBC 6.2 k/uL (3.8-10.6)
[2019-07-21 20:18] LABS: HGB 5.4 gm/dL (11.4-16.0)
[2019-07-21 20:21] LABS: HCT 18.5 % (34.0-46.0)
[2019-07-21 20:42] LABS: Eosinophils # (M) 0.06 k/uL (0-0.7); Lymphocytes # (M) 0.81 k/uL (1.0-4.8); Monocytes # (M) 0.25 k/uL (0-1.0); Neutrophils # (M) 5.08 k/uL (1.3-7.7); Neutrophils % (M) 82 %; Nucleated Red Blood Cells 0 /100 WBC (0-0); Platelet Count 86 k/uL (150-450); Polychromasia Present; Total Cells Counted 100
[2019-07-21] MEDS ORDERED: traMADol 50 MG TAB PO PRN (21:32)
[2019-07-21] MEDS: PROPRANOLOL 10 MG TAB PO SCH (22:07)
--- NOTE | 2019-07-21 23:28 | HP ---
HISTORY AND PHYSICAL This is a 74-year-old white female who was admitted for symptomatic anemia and severe GI bleeding. This 74-year-old white female with history of alcoholic cirrhosis of the liver, recent GI bleed, underwent EGD noted to have distal esophageal varices, was admitted from the GI clinic today due to hemoglobin of 6 for a transfusion of 2 units of blood tonight with EGD tomorrow with possible banding of esophageal varices in the morning. Last EGD was in May 2019 showed esophageal varices. PAST MEDICAL HISTORY: Hypertension, dyslipidemia, DJD, GERD, GI bleeding, esophageal varices, uterine cancer 5 years ago. PAST SURGICAL HISTORY: Tonsillectomy, hysterectomy, bilateral cataract surgery, EGD, colonoscopy. HOME MEDICATIONS: Requip, Norvasc, Lexapro, Feosol, Neurontin, Prilosec, Namenda, Zestril, Synthroid, Zyrtec, vitamin D, Lasix, Aricept, vitamin D, Lasix, Aricept and Tylenol. ALLERGIES: None. SOCIAL HISTORY: No smoking, quit drinking 4 years ago. FAMILY HISTORY: Unremarkable. REVIEW OF SYSTEMS: Negative except for lightheaded, dizziness. PHYSICAL EXAMINATION: VITAL SIGNS: Reviewed, CARDIOVASCULAR: S1, S2, LUNGS: Wheezes x4. HEMATOLOGY: Negative Homans. PSYCH: Fair mood and affect. INTEGUMENT: No dry skin turgor. Hemoglobin 2 weeks ago, 7.9, now 6.1. She is to be admitted 2 units of blood have been ordered. Esophageal EGD will be done in the morning. ASSESSMENT: 1. Alcoholic cirrhosis of the liver. 2. Hypertension. 3. Dyslipidemia. 4. Uterine cancer. Blood transfusions being given. Monitor CBC every 8 hours. EGD tomorrow. Continue Protonix. MMODL / IJN: [id number] /
[2019-07-22 00:19] LABS: Anisocytosis Slight; Hypochromasia Marked; MCH 30.1 pg (25.0-35.0); MCHC 28.7 g/dL (31.0-37.0); MCV 104.8 fL (80.0-100.0); Macrocytosis Moderate; Mean Platelet Volume 12.3; RDW 17.7 % (11.5-15.5); WBC 5.8 k/uL (3.8-10.6)
[2019-07-22 00:22] LABS: HCT 18.9 % (34.0-46.0); HGB 5.4 gm/dL (11.4-16.0)
[2019-07-22 00:23] LABS: Platelet Count 85 k/uL (150-450)
[2019-07-22 00:56] LABS: Lymphocytes # (M) 0.93 k/uL (1.0-4.8); Monocytes # (M) 0.17 k/uL (0-1.0); Neutrophils % (M) 81 %; Nucleated Red Blood Cells 0 /100 WBC (0-0); Total Cells Counted 100
[2019-07-22 04:14] LABS: Anisocytosis Slight; Hypochromasia Marked; MCH 30.8 pg (25.0-35.0); MCHC 29.7 g/dL (31.0-37.0); MCV 103.7 fL (80.0-100.0); Macrocytosis Moderate; Mean Platelet Volume 11.5; Poikilocytosis Slight; RBC 1.76 m/uL (3.80-5.40); RDW 18.1 % (11.5-15.5); WBC 4.5 k/uL (3.8-10.6)
[2019-07-22 04:18] LABS: HCT 18.3 % (34.0-46.0); HGB 5.4 gm/dL (11.4-16.0)
[2019-07-22 04:19] LABS: Platelet Count 80 k/uL (150-450)
[2019-07-22 04:21] LABS: Albumin 2.2 g/dL (3.5-5.0); Calcium 7.5 mg/dL (8.4-10.2); Potassium 3.8 mmol/L (3.5-5.1); Total Bilirubin 0.4 mg/dL (0.2-1.3); Total Protein 6.3 g/dL (6.3-8.2)
[2019-07-22] MEDS: LEVOTHYROXINE 25 MCG TAB PO SCH (04:28)
[2019-07-22 05:22] LABS: Eosinophils # (M) 0.05 k/uL (0-0.7); Monocytes # (M) 0.14 k/uL (0-1.0); Neutrophils # (M) 3.42 k/uL (1.3-7.7); Neutrophils % (M) 76 %; Nucleated Red Blood Cells 0 /100 WBC (0-0); Total Cells Counted 100
[2019-07-22] MEDS ORDERED: GLYCOPYRROLATE 0.2 MG/ML 2 ML VIAL ONE (07:35)
[2019-07-22] MEDS ORDERED: PROPOFOL 10 MG/ML 20 ML VIAL IV ONE (07:35)
[2019-07-22] MEDS ORDERED: LACTATED RINGERS 1,000 ML IV ONE (07:38)
--- NOTE | 2019-07-22 08:06 | P.PCN ---
Date of Procedure: 07/22/19 Description of Procedure: BRIEF HISTORY: Patient is a 74-year-old female with a medical history significant for decompensated alcoholic cirrhosis of liver who previously underwent EGD on and found to have nonbleeding distal esophageal varices for which she underwent variceal band ligation. Patient was seen in the outpatient setting with findings of a hemoglobin of 6.1. At that time she had been complaining of dark-colored stools. She reports severe sometimes dark in color and sometimes red in color. Her past colonoscopy was in 2018 significant for polypectomy. PROCEDURE PERFORMED: Esophagogastroduodenoscopy with gold probe ablation of a mobile angiectasia and variceal band ligation. PREOPERATIVE DIAGNOSIS: Anemia of acute blood loss, history decompensated cirrhosis with varices, melena, blood per. ESTIMATED BLOOD LOSS: Minimal. IV sedation per anesthesia. PROCEDURE: After informed consent was obtained, the patient was brought into the endoscopy unit. IV sedation was administered by Anesthesia under continuous monitoring. Initially the Olympus GIF-190 video endoscope was inserted into the mouth. Esophagus intubated without any difficulty. It was gradually advanced into the stomach and duodenum and carefully examined. The bulb and the second part of the duodenum appeared grossly normal, there was however a nonbleeding angiectasia in the second portion of the duodenum which was treated with gold probe ablation. The scope at this time was withdrawn to the stomach, adequately insufflated with air, and upon careful examination, mucosa of the antrum, body, cardia and the fundus appeared normal, except for some mild scattered antral gastritis. The scope was then withdrawn into the esophagus. The GE junction was located at 39 cm from the incisors. The esophagus appeared normal except for a few columns of small to moderate-sized distal esophageal varices which were treated with esophageal band ligation 4. The patient tolerated the procedure well. IMPRESSION: 1. Nonbleeding duodenal angiectasia treated with gold probe ablation. 2. Small to moderate-sized distal esophageal varices treated with esophageal band ligation 4. 3. Mild antritis. RECOMMENDATIONS: The findings of this examination were discussed with the patient. Okay for full liquid diet. Continue to monitor hemoglobin and hematocrit. Hematology services consult. Continue Protonix therapy.
[2019-07-22 08:43] LABS: Anisocytosis Slight; Hypochromasia Marked; MCHC 29.6 g/dL (31.0-37.0); MCV 104.6 fL (80.0-100.0); Macrocytosis Marked; Mean Platelet Volume 12.1; Poikilocytosis Slight; RBC 1.78 m/uL (3.80-5.40); RDW 18.2 % (11.5-15.5); WBC 4.4 k/uL (3.8-10.6)
[2019-07-22] MEDS: IPRATROPIUM-ALBUTEROL 3 ML NEB INHALATION SCH ×4 (08:49→19:14)
[2019-07-22 08:55] LABS: HCT 18.6 % (34.0-46.0); HGB 5.5 gm/dL (11.4-16.0); Platelet Count 73 k/uL (150-450)
[2019-07-22] MEDS ORDERED: NON FORMULARY DRUG (Omeprazole 40 MG) PO SCH (09:00)
[2019-07-22] MEDS ORDERED: LISINOPRIL 10 MG TAB PO SCH (09:00)
[2019-07-22] MEDS ORDERED: amLODIPine 10 MG TAB PO SCH (09:00)
[2019-07-22 09:24] LABS: Basophils # (M) 0.04 k/uL (0-0.2); Eosinophils # (M) 0.09 k/uL (0-0.7); Lymphocytes # (M) 0.57 k/uL (1.0-4.8); Monocytes # (M) 0.18 k/uL (0-1.0); Neutrophils # (M) 3.52 k/uL (1.3-7.7); Neutrophils % (M) 80 %; Nucleated Red Blood Cells 0 /100 WBC (0-0); Total Cells Counted 100
[2019-07-22 09:26] LABS: Target Cells Present
[2019-07-22] MEDS: MEMANTINE 10 MG TAB PO SCH ×2 (09:51→21:06)
[2019-07-22] MEDS: NICOTINE 14MG/24HR PATCH TRANSDERM SCH (09:51)
[2019-07-22] MEDS: ESCITALOPRAM 10 MG TAB PO SCH (09:51)
[2019-07-22] MEDS: PANTOPRAZOLE 40 MG/10 ML VIAL IVP SCH (09:51)
[2019-07-22 10:16] VITALS: BMI 27.8
[2019-07-22] MEDS: PROPRANOLOL 10 MG TAB PO SCH ×3 (13:06→21:06)
[2019-07-22] MEDS: FUROSEMIDE 20 MG TAB PO SCH (13:06)
--- NOTE | 2019-07-22 14:17 | P.CONS ---
History of Present Illness - Reason for Consult Consult date: 07/22/19 Uterine cancer Requesting physician: Bebeto Davila - Chief Complaint GI Bleed - History of Present Illness This is a very nice lady who was originally referred because of anemia found during routine blood work. She was last seen in office by Dr. Crane in 2014 On 08/17/2014,CBC revealed a hemoglobin of 7.1gm/dl,MCV of 103,otherwise normal,CMP unremarkable. The patient recently moved back from [place] to [place],she stated that she was diagnosed with uterine cancer, had radical hysterectomy followed by chemotherapy and followed by radiation therapy. She was not sure about her stage, or the chemotherapy she received. Her records were subsequently obtained. 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 She received 3 cycles of chemo with Carboplatin and Taxol, and then RT , completing that in 03/2014. An additional 3 cycles of chemo was planned but not given, due to severe side effects, including pancytopenia, and marked peripheral neuropathy. Post treatment CT scans of the C/A/P showed no evident disease. Incidentally cirrhosis of the liver was noted, with borderline splenomegaly. Additional w/u was ordered. TIn 2014 EGD showed no significant pathology. Her labs in the hospital, and the office showed iron deficiency, but no other significant abnormality. She received ferraheme as an outpt in 08/2014. She has known history of chronic anemia, history of uterine cancer status post chemotherapy, mild cognitive impairment, history of CVA/TIA, GERD, hypertension and osteoarthritis and other multiple medical problems.In May 2019 she presented to ER with the complaints of generalized weakness and fatigue. Until this prior admission she has not required PRBC transfusions per the patient in a couple years. Patient recently moved back to [facility] from [place]. SHe represented with symptomatic anemia. Her hemoglobin has been under 7 the past two days despite transfusion. GI is following. Because of this hematolology was consulted. Patient has had colonoscopy and EGD a year ago which showed no acute findings. She underwent EGD 07/20 which revealed non-bleeding angiectasia and treated with ablation, moderate esophageal varices treated with esophageal band ligation and mild antritis according to GI. Patient has a heavy smoker states that she has COPD. . Review of Systems A 14 point review of systems assessed and completed and all negative except HPI Past Medical History Past Medical History: Cancer, CVA/TIA, GERD/Reflux, Hyperlipidemia, Hypertension, Osteoarthritis (OA) Additional Past Medical History / Comment(s): hx. uterine cancer, chemo 4 years ago, TIA several yrs. ago-forgetful, neuropathy feet & legs & hands, ANEMIA- RECENT OBV FOR BLOOD TRANSFUSION-11/07-11/08/17 History of Any Multi-Drug Resistant Organisms: None Reported Past Surgical History: Hysterectomy, Tonsillectomy Additional Past Surgical History / Comment(s): COLONOSCOPY. EGD. BILAT CATARACTS REMOVED Past Anesthesia/Blood Transfusion Reactions: No Reported Reaction Past Psychological History: Anxiety, Depression Smoking Status: Current every day smoker Past Alcohol Use History: None Reported Additional Past Alcohol Use History / Comment(s): SMOKES 1PPD SINCE AGE 12 Past Drug Use History: None Reported - Past Family History Mother Family Medical History: Cancer Father History Unknown: Yes Family Medical History: Cancer Brother(s) Family Medical History: Cancer Medications and Allergies Home Medications Medication Instructions Recorded Confirmed Type Ferrous Sulfate [Feosol] 325 mg PO BID 10/29/16 07/21/19 History Donepezil [Aricept] 10 mg PO HS 11/07/17 07/21/19 History Levothyroxine Sodium [Synthroid] 25 mcg PO DAILY 11/07/17 07/21/19 History Omeprazole [PriLOSEC] 40 mg PO DAILY 11/07/17 07/21/19 History Cetirizine HCl [Zyrtec] 10 mg PO DAILY 01/14/19 07/21/19 History Escitalopram [Lexapro] 10 mg PO DAILY 01/14/19 07/21/19 History Gabapentin [Neurontin] 800 mg PO TID 01/14/19 07/21/19 History Memantine [Namenda] 10 mg PO BID 01/14/19 07/21/19 History Lisinopril [Zestril] 10 mg PO DAILY #30 tab 01/15/19 07/21/19 Rx amLODIPine [Norvasc] 10 mg PO DAILY #30 tab 01/15/19 07/21/19 Rx Acetaminophen Tab [Tylenol] 650 mg PO Q6H PRN 05/01/19 07/21/19 History Ipratropium-Albuterol Nebulize 3 ml INHALATION RT-QID PRN 05/01/19 07/21/19 History [Duoneb 0.5 mg-3 mg/3 ml Soln] Baclofen 5 mg PO TID 06/28/19 07/21/19 History Promethazine 6.25MG/5Ml [Phenergan 6.25 mg PO Q6H PRN 06/28/19 07/21/19 History Syrup] SILVER sulfADIAZINE Cream 1 applic TOPICAL BID 06/28/19 07/21/19 History [Silvadene 1% Cream] rOPINIRole HCL [Requip] 0.25 mg PO HS 06/28/19 07/21/19 History Propranolol [Inderal] 10 mg PO TID #90 tab 06/30/19 07/21/19 Rx Furosemide [Lasix] 20 mg PO DAILY 07/21/19 07/21/19 History traMADol HCl [Ultram] 50 mg PO BID PRN 07/21/19 07/21/19 History Allergies Allergy/AdvReac Type Severity Reaction Status Date / Time No Known Allergies Allergy Verified 07/21/19 13:48 Physical Exam Vitals: Vital Signs Temp Pulse Pulse Resp BP BP Pulse Ox 07/22/19 12:00 68 07/22/19 11:47 66 07/22/19 10:33 97.9 F 64 17 124/62 95 07/22/19 10:03 97.7 F 66 17 130/54 97 07/22/19 09:53 97.7 F 65 16 140/51 96 07/22/19 09:01 72 07/22/19 08:49 76 07/22/19 08:39 97.8 F 66 16 112/51 98 07/22/19 08:10 66 17 07/22/19 07:00 97.6 F 57 L 16 112/70 98 07/22/19 06:08 64 108/54 96 07/22/19 05:16 65 119/71 98 07/22/19 04:12 62 130/73 95 07/22/19 03:15 98.5 F 62 111/68 96 07/22/19 03:00 61 111/58 96 07/22/19 01:56 63 126/58 97 07/22/19 01:06 98.5 F 63 126/61 95 07/22/19 00:15 98.3 F 63 100/44 92 L 07/22/19 00:14 98.3 F 63 100/44 92 L 07/21/19 23:35 98.6 F 70 116/75 92 L 07/21/19 19:43 70 07/21/19 19:33 65 16 07/21/19 19:05 98.1 F 97 17 117/49 93 L 07/21/19 15:44 79 07/21/19 15:31 78 07/21/19 15:00 97.9 F 71 18 103/64 90 L Intake and Output 07/21/19 07/22/19 07/22/19 22:59 06:59 14:59 Intake Total 150 0 200 Balance 150 0 200 Intake: IV 200 Intake, IV Titration 150 Amount Sodium Chloride 0.9% 1, 150 000 ml @ 50 mls/hr IV . Q20H [facility] Rx#:[id number] Oral 0 Blood Product 0 Rc As-1 Unit 0 [id number] Other: Voiding Method Toilet Toilet Toilet Weight 75.75 kg Gen: Alert and oriented, NAD Head: NCAT Neck: Supple Heart: RRR Lungs: CTA bila Abdomen: Tender, soft Ext: no edema Mood calm Results CBC & Chem 7: 07/22/19 15:22 07/22/19 03:41 Labs: Abnormal Lab Results - Last 24 Hours (Table) 07/21/19 07/21/19 07/21/19 Range/Units 15:18 19:39 23:59 RBC 1.77 L 1.80 L (3.80-5.40) m/uL Hgb 5.4 L* 5.4 L* (11.4-16.0) gm/dL Hct 18.5 L* 18.9 L* (34.0-46.0) % MCV 104.4 H 104.8 H (80.0-100.0) fL MCHC 28.9 L 28.7 L (31.0-37.0) g/dL RDW 18.1 H 17.7 H (11.5-15.5) % Plt Count 86 L 85 L (150-450) k/uL Lymphocytes # (Manual) 0.81 L 0.93 L (1.0-4.8) k/uL Macrocytosis Marked A Chloride (98-107) mmol/L Creatinine (0.52-1.04) mg/dL Calcium (8.4-10.2) mg/dL Albumin (3.5-5.0) g/dL Crossmatch See Detail Blood Bank Comment Sent to [facility] A 07/22/19 07/22/19 07/22/19 Range/Units 03:41 03:41 08:19 RBC 1.76 L 1.78 L (3.80-5.40) m/uL Hgb 5.4 L* 5.5 L* (11.4-16.0) gm/dL Hct 18.3 L* 18.6 L* (34.0-46.0) % MCV 103.7 H 104.6 H (80.0-100.0) fL MCHC 29.7 L 29.6 L (31.0-37.0) g/dL RDW 18.1 H 18.2 H (11.5-15.5) % Plt Count 80 L 73 L (150-450) k/uL Lymphocytes # (Manual) 0.90 L 0.57 L (1.0-4.8) k/uL Macrocytosis Marked A Chloride 108 H (98-107) mmol/L Creatinine 1.19 H (0.52-1.04) mg/dL Calcium 7.5 L (8.4-10.2) mg/dL Albumin 2.2 L (3.5-5.0) g/dL Crossmatch Blood Bank Comment CT scan - abdomen: report reviewed Assessment and Plan Plan: Assessment and Recommendations: 1. Severe Iron Deficiency Anemia: Secondary to GI bood Loss - Status Post EGD with Ablation and Banding, see report for details - PRBC transfusions ordered and infusing - Serial HH - She will require close monitoring of Hemoglobin as outpatient and likely benefit from PRN infusions of parental iron. - COntinue monitoring CBC and transfuse hemoglobin less than 7 2. Hx: Uterine Cancer: Carcinosarcoma - Definite Surgery at [facility] with Adjuvant chemo and radiation - Diagnosed in 2014 - Will ensure follow-up scans have been completed Physician Attest: I have ocompleted the full history and physical and agree with above dictated as a scribe
[2019-07-22 15:41] LABS: Anisocytosis Slight; Hypochromasia Marked; MCH 30.2 pg (25.0-35.0); MCHC 29.5 g/dL (31.0-37.0); MCV 102.3 fL (80.0-100.0); Macrocytosis Moderate; Mean Platelet Volume 11.7; Platelet Count 102 k/uL (150-450); Poikilocytosis Slight; RBC 2.35 m/uL (3.80-5.40); RDW 18.5 % (11.5-15.5); WBC 5.9 k/uL (3.8-10.6)
[2019-07-22 15:43] LABS: HGB 7.1 gm/dL (11.4-16.0)
[2019-07-22 16:09] LABS: Lymphocytes # (M) 0.53 k/uL (1.0-4.8); Monocytes # (M) 0.41 k/uL (0-1.0); Neutrophils # (M) 4.96 k/uL (1.3-7.7); Neutrophils % (M) 84 %; Nucleated Red Blood Cells 0 /100 WBC (0-0); Total Cells Counted 100
[2019-07-22 16:10] LABS: Target Cells Present; Toxic Vacuolation Present
[2019-07-22] MEDS ORDERED: SODIUM FERRIC GLUCONAT-SUCROSE 125 MG in SODIUM CHLORIDE 0.9% 100 ML IVPB ONE (16:30)
[2019-07-22] MEDS: SODIUM CHLORIDE 0.9% 1,000 ML IV SCH (18:57)
[2019-07-22] MEDS ORDERED: DONEPEZIL 10 MG TAB PO SCH (21:00)
[2019-07-22 21:28] LABS: Anisocytosis Slight; HCT 24.3 % (34.0-46.0); HGB 7.4 gm/dL (11.4-16.0); Hypochromasia Marked; MCH 30.6 pg (25.0-35.0); MCHC 30.6 g/dL (31.0-37.0); Macrocytosis Moderate; Mean Platelet Volume 11.7; Poikilocytosis Slight; RBC 2.43 m/uL (3.80-5.40); RDW 18.5 % (11.5-15.5); WBC 6.9 k/uL (3.8-10.6)
[2019-07-22 21:50] LABS: Lymphocytes # (M) 0.76 k/uL (1.0-4.8); Monocytes # (M) 0.21 k/uL (0-1.0); Neutrophils # (M) 5.93 k/uL (1.3-7.7); Neutrophils % (M) 86 %; Nucleated Red Blood Cells 0 /100 WBC (0-0); Total Cells Counted 100
[2019-07-22 21:51] LABS: Platelet Count 92 k/uL (150-450); Polychromasia Present; Target Cells Present
--- NOTE | 2019-07-22 23:54 | PN ---
PROGRESS NOTE This is a 74-year-old female with significant history decompensated alcoholic cirrhosis of the liver. Underwent EGD, ulceration 06/18 was found to have nonbleeding distal esophageal varices for which she underwent band ligation. Hemoglobin was 5.4 overnight. Tried to get her unit of blood, which was difficult to do for many hours as it was not followed up on after 3 orders. Patient's current hemoglobin is 7.1 after one unit of blood this afternoon. She had 4 bands done on EGD for esophageal varices. She will be started on IV iron currently. CARDIOVASCULAR: S1, S2 LUNGS: Clear. GI: Soft. HEMATOLOGY: Negative Homans. ASSESSMENT: 1. Acute blood loss anemia due decompensated cirrhosis with varices, melena, with severe anemia. 2. Mild antritis. Advanced diet now that she has been banded four more times, IV iron, check CBC in the morning. MMODL / IJN: [id number] /
[2019-07-23] MEDS: SODIUM CHLORIDE 0.9% 1,000 ML IV SCH (03:40)
[2019-07-23] MEDS: LEVOTHYROXINE 25 MCG TAB PO SCH (06:07)
[2019-07-23] MEDS: IPRATROPIUM-ALBUTEROL 3 ML NEB INHALATION SCH ×2 (07:09→11:15)
[2019-07-23] MEDS: PROPRANOLOL 10 MG TAB PO SCH (07:59)
[2019-07-23] MEDS: MEMANTINE 10 MG TAB PO SCH (07:59)
[2019-07-23] MEDS: ESCITALOPRAM 10 MG TAB PO SCH (07:59)
[2019-07-23] MEDS: FUROSEMIDE 20 MG TAB PO SCH (07:59)
[2019-07-23] MEDS: PANTOPRAZOLE 40 MG/10 ML VIAL IVP SCH (08:00)
[2019-07-23 08:05] LABS: Anisocytosis Slight; HCT 24.5 % (34.0-46.0); HGB 7.3 gm/dL (11.4-16.0); Hypochromasia Marked; MCH 30.2 pg (25.0-35.0); MCHC 29.7 g/dL (31.0-37.0); MCV 101.5 fL (80.0-100.0); Macrocytosis Moderate; Mean Platelet Volume 12.3; Poikilocytosis Slight; RBC 2.42 m/uL (3.80-5.40); RDW 18.5 % (11.5-15.5); WBC 6.4 k/uL (3.8-10.6)
[2019-07-23 08:17] LABS: Albumin 2.4 g/dL (3.5-5.0); Calcium 7.9 mg/dL (8.4-10.2); Potassium 4.1 mmol/L (3.5-5.1); Total Bilirubin 1.2 mg/dL (0.2-1.3)
[2019-07-23 08:31] LABS: Platelet Count 94 k/uL (150-450)
[2019-07-23 09:02] VITALS: BP 152/77; PULSE 56; RESP 17; TEMP 97.7
[2019-07-23 09:56] LABS: INR 1.3 (<1.2); Prothrombin Time 12.9 sec (9.0-12.0)
[2019-07-23 10:02] LABS: Eosinophils # (M) 0.06 k/uL (0-0.7); Large Platelets Present; Lymphocytes # (M) 0.58 k/uL (1.0-4.8); Monocytes # (M) 0.13 k/uL (0-1.0); Neutrophils # (M) 5.63 k/uL (1.3-7.7); Neutrophils % (M) 88 %; Nucleated Red Blood Cells 0 /100 WBC (0-0); Total Cells Counted 100
[2019-07-23 10:03] LABS: Rouleaux Present
[2019-07-23] MEDS: NICOTINE 14MG/24HR PATCH TRANSDERM SCH (10:55)
--- NOTE | 2019-07-23 15:55 | P.DS ---
Providers Date of admission: 07/21/19 10:05 Expected date of discharge: 07/23/19 Attending physician: Bebeto Davila Consults: 07/21/19 11:00 Consult Physician Routine Consulting Provider: Arnaldo Monroe Consult Reason/Comments: GI bleed Do you want consulting provider notified?: Yes 07/21/19 22:27 Consult Physician Routine Consulting Provider: Fly Crane Consult Reason/Comments: Blood Status Pending Do you want consulting provider notified?: Already Contacted 07/22/19 18:34 Consult Physician Urgent Consulting Provider: Fly Crane Consult Reason/Comments: severe anemia Do you want consulting provider notified?: Yes Primary care physician: Bebeto Davila [facility] Course: Final Diagnoses: Acute blood loss anemia secondary to decompensated cirrhosis with varices, with melena with severe anemia. Status post banding 4, IV iron, transfusion 1 unit packed RBCs Mild antritis Hospital course this a 74-year-old female with significant decompensated alcoholic cirrhosis of the liver, status post EGD reporting nonbleeding distal esophageal varices, status post banding. Tolerated procedure well. Maintained on PPI. Received IV iron, one unit of packed RBCs with hemoglobin currently at 7.3. Significant clinical improvement. Cleared by GI for discharge. Patient is being discharged home in a stable condition with guarded prognosis. The impression and plan of care has been dictated as directed. : I performed a history and examination of this patient, discussed the same with the dictator. I agree with the dictator's note ,documented as a scribe. Any additional findings or plans will be noted. Patient Condition at Discharge: Stable Plan - Discharge Summary Discharge Rx Participant: Yes New Discharge Prescriptions: New Nicotine 14Mg/24Hr Patch [Habitrol] 1 patch TRANSDERM DAILY #30 patch Continue Ferrous Sulfate [Feosol] 325 mg PO BID Omeprazole [PriLOSEC] 40 mg PO DAILY Levothyroxine Sodium [Synthroid] 25 mcg PO DAILY Donepezil [Aricept] 10 mg PO HS Memantine [Namenda] 10 mg PO BID Escitalopram [Lexapro] 10 mg PO DAILY Cetirizine HCl [Zyrtec] 10 mg PO DAILY Gabapentin [Neurontin] 800 mg PO TID amLODIPine [Norvasc] 10 mg PO DAILY #30 tab Lisinopril [Zestril] 10 mg PO DAILY #30 tab Acetaminophen Tab [Tylenol] 650 mg PO Q6H PRN PRN Reason: Pain Ipratropium-Albuterol Nebulize [Duoneb 0.5 mg-3 mg/3 ml Soln] 3 ml INHALATION RT-QID PRN PRN Reason: Shortness Of Breath rOPINIRole HCL [Requip] 0.25 mg PO HS Promethazine 6.25MG/5Ml [Phenergan Syrup] 6.25 mg PO Q6H PRN PRN Reason: Cough Baclofen 5 mg PO TID SILVER sulfADIAZINE Cream [Silvadene 1% Cream] 1 applic TOPICAL BID Propranolol [Inderal] 10 mg PO TID #90 tab traMADol HCl [Ultram] 50 mg PO BID PRN PRN Reason: Pain Furosemide [Lasix] 20 mg PO DAILY Discharge Medication List Ferrous Sulfate [Feosol] 325 mg PO BID 10/29/16 [History] Donepezil [Aricept] 10 mg PO HS 11/07/17 [History] Levothyroxine Sodium [Synthroid] 25 mcg PO DAILY 11/07/17 [History] Omeprazole [PriLOSEC] 40 mg PO DAILY 11/07/17 [History] Cetirizine HCl [Zyrtec] 10 mg PO DAILY 01/14/19 [History] Escitalopram [Lexapro] 10 mg PO DAILY 01/14/19 [History] Gabapentin [Neurontin] 800 mg PO TID 01/14/19 [History] Memantine [Namenda] 10 mg PO BID 01/14/19 [History] Lisinopril [Zestril] 10 mg PO DAILY #30 tab 01/15/19 [Rx] amLODIPine [Norvasc] 10 mg PO DAILY #30 tab 01/15/19 [Rx] Acetaminophen Tab [Tylenol] 650 mg PO Q6H PRN 05/01/19 [History] Ipratropium-Albuterol Nebulize [Duoneb 0.5 mg-3 mg/3 ml Soln] 3 ml INHALATION RT-QID PRN 05/01/19 [History] Baclofen 5 mg PO TID 06/28/19 [History] Promethazine 6.25MG/5Ml [Phenergan Syrup] 6.25 mg PO Q6H PRN 06/28/19 [History] SILVER sulfADIAZINE Cream [Silvadene 1% Cream] 1 applic TOPICAL BID 06/28/19 [History] rOPINIRole HCL [Requip] 0.25 mg PO HS 06/28/19 [History] Propranolol [Inderal] 10 mg PO TID #90 tab 06/30/19 [Rx] Furosemide [Lasix] 20 mg PO DAILY 07/21/19 [History] traMADol HCl [Ultram] 50 mg PO BID PRN 07/21/19 [History] Nicotine 14Mg/24Hr Patch [Habitrol] 1 patch TRANSDERM DAILY #30 patch 07/23/19 [Rx] Follow up Appointment(s)/Referral(s): Fly Crane MD [STAFF PHYSICIAN] - 1 Week Bebeto Davila MD [Primary Care Provider] - 1 Week (Office closed at time of discharge, please call SaturdayJuly 23 before 11:15am to set up a follow up appointment) Arnaldo Monroe MD [STAFF PHYSICIAN] - 08/17/19 3:30 pm Ambulatory/Diagnostic Orders: Complete Blood Count w/diff [LAB.AMB] Time Frame: 3 Days, Location: None Selected Patient Instructions/Handouts: Iron Deficiency Anemia (DC) Activity/Diet/Wound Care/Special Instructions: Frequent monitoring of hemoglobin outpatient, PRN IV Iron infusion .
--- NOTE | 2019-07-23 19:48 | P.PN ---
Subjective Progress Note Date: 07/23/19 Principal diagnosis: Decompensated alcoholic cirrhosis, esophageal varices, symptomatic anemia Patient is seen lying in bed reporting she is doing well. No signs or symptoms of GI bleed with a normal nonbloody bowel movement this morning. Tolerating diet. Objective - Vital Signs Vital signs: Vital Signs Temp 97.7 F 07/23/19 07:00 Pulse 68 07/23/19 07:19 Resp 17 07/23/19 07:00 BP 152/77 07/23/19 07:00 Pulse Ox 93 L 07/23/19 07:00 Intake & Output 07/22/19 07/23/19 07/23/19 18:59 06:59 18:59 Intake Total 1929 Balance 1929 Weight 75.75 kg Intake: IV 200 Intake, IV Titration 150 Amount Sodium Chloride 0.9% 1, 150 000 ml @ 50 mls/hr IV . Q20H [facility] Rx#:[id number] Oral 960 Blood Product 620 Rc As-1 Unit 310 [id number] Other: Voiding Method Toilet Toilet # Voids 2 1 - Exam On physical examination, patient appears comfortable in no apparent distress. HEAD: Normocephalic, atraumatic. EYES: No scleral icterus. No conjunctival injection. MOUTH: No lesions, tongue midline. NECK: Trachea midline, no gross abnormalities. ABDOMEN: Soft, obese. Bowel sounds are positive. No organomegaly. No guarding or rigidity. EXTREMITIES: No pedal edema. SKIN: No rashes, no jaundice. NEUROLOGIC: Alert and oriented x3. No focal deficits. - Labs CBC & Chem 7: 07/23/19 07:26 07/23/19 07:26 Labs: Abnormal Lab Results - Last 24 Hours (Table) 07/21/19 07/22/19 07/22/19 Range/Units 15:18 08:19 15:22 RBC 2.35 L (3.80-5.40) m/uL Hgb 7.1 L D (11.4-16.0) gm/dL Hct 24.0 L (34.0-46.0) % MCV 102.3 H (80.0-100.0) fL MCHC 29.5 L (31.0-37.0) g/dL RDW 18.5 H (11.5-15.5) % Plt Count 102 L (150-450) k/uL Lymphocytes # (Manual) 0.57 L 0.53 L (1.0-4.8) k/uL Chloride (98-107) mmol/L Creatinine (0.52-1.04) mg/dL Calcium (8.4-10.2) mg/dL Albumin (3.5-5.0) g/dL Crossmatch See Detail Blood Bank Comment Sent to [facility] 07/22/19 07/23/19 07/23/19 Range/Units 21:16 07:26 07:26 RBC 2.43 L 2.42 L (3.80-5.40) m/uL Hgb 7.4 L 7.3 L (11.4-16.0) gm/dL Hct 24.3 L 24.5 L (34.0-46.0) % MCV 101.5 H (80.0-100.0) fL MCHC 30.6 L 29.7 L (31.0-37.0) g/dL RDW 18.5 H 18.5 H (11.5-15.5) % Plt Count 92 L (150-450) k/uL Lymphocytes # (Manual) 0.76 L (1.0-4.8) k/uL Chloride 109 H (98-107) mmol/L Creatinine 1.16 H (0.52-1.04) mg/dL Calcium 7.9 L (8.4-10.2) mg/dL Albumin 2.4 L (3.5-5.0) g/dL Crossmatch Blood Bank Comment Assessment and Plan (1) Esophageal varices determined by endoscopy Status: Acute Code(s): I85.00 - ESOPHAGEAL VARICES WITHOUT BLEEDING SNOMED Code(s): 49728578 (2) Liver cirrhosis Status: Acute Code(s): K74.60 - UNSPECIFIED CIRRHOSIS OF LIVER SNOMED Code(s): 61914342 (3) Symptomatic anemia Narrative/Plan: EGD performed with esophageal variceal banding and coagulation therapy of a small bowel angiectasia with no evidence of active bleeding on EGD. Status: Acute Code(s): D64.9 - ANEMIA, UNSPECIFIED SNOMED Code(s): 075562325 Plan: Supportive care Continue PPI therapy Continue follow up with GI after discharge Okay to advance diet to soft Continue follow-up with hematology service Thank you for allowing us to participate in the care of the patient
--- NOTE | 2019-07-23 20:57 | P.PN ---
Subjective Progress Note Date: 07/23/19 Principal diagnosis: GI bleed Planning on dischargetoday,appointment for follow-up IV iron and to be seen in office in 3 weeks Objective - Vital Signs Vital signs: Vital Signs Temp 97.7 F 07/23/19 07:00 Pulse 56 L 07/23/19 08:02 Resp 17 07/23/19 08:02 BP 152/77 07/23/19 07:00 Pulse Ox 93 L 07/23/19 07:00 Intake & Output 07/23/19 07/23/19 07/24/19 06:59 18:59 06:59 Other: Voiding Method Toilet Toilet # Voids 1 3 # Bowel Movements 1 - Exam Gen: Alert and oriented, NAD Head: NCAT Neck: Supple Heart: RRR Lungs: CTA bila Abdomen: Tender, soft Ext: no edema Mood calm - Labs CBC & Chem 7: 07/23/19 07:26 07/23/19 07:26 Labs: Abnormal Lab Results - Last 24 Hours (Table) 07/22/19 07/23/19 07/23/19 Range/Units 21:16 07:26 07:26 RBC 2.43 L 2.42 L (3.80-5.40) m/uL Hgb 7.4 L 7.3 L (11.4-16.0) gm/dL Hct 24.3 L 24.5 L (34.0-46.0) % MCV 101.5 H (80.0-100.0) fL MCHC 30.6 L 29.7 L (31.0-37.0) g/dL RDW 18.5 H 18.5 H (11.5-15.5) % Plt Count 92 L 94 L (150-450) k/uL Lymphocytes # (Manual) 0.76 L 0.58 L (1.0-4.8) k/uL PT (9.0-12.0) sec INR (<1.2) Chloride 109 H (98-107) mmol/L Creatinine 1.16 H (0.52-1.04) mg/dL Calcium 7.9 L (8.4-10.2) mg/dL Albumin 2.4 L (3.5-5.0) g/dL 07/23/19 Range/Units 09:03 RBC (3.80-5.40) m/uL Hgb (11.4-16.0) gm/dL Hct (34.0-46.0) % MCV (80.0-100.0) fL MCHC (31.0-37.0) g/dL RDW (11.5-15.5) % Plt Count (150-450) k/uL Lymphocytes # (Manual) (1.0-4.8) k/uL PT 12.9 H (9.0-12.0) sec INR 1.3 H (<1.2) Chloride (98-107) mmol/L Creatinine (0.52-1.04) mg/dL Calcium (8.4-10.2) mg/dL Albumin (3.5-5.0) g/dL Assessment and Plan Plan: Assessment and Recommendations: 1. Severe Iron Deficiency Anemia: Secondary to GI bood Loss - Status Post EGD with Ablation and Banding, see report for details - PRBC transfusions ordered and infusing - Serial HH - She will require close monitoring of Hemoglobin as outpatient and likely benefit from PRN infusions of parental iron. - COntinue monitoring CBC and transfuse hemoglobin less than 7 2. Hx: Uterine Cancer: Carcinosarcoma - Definite Surgery at [facility] with Adjuvant chemo and radiation - Diagnosed in 2014 - Will ensure follow-up scans have been completed Appointment made for August [address] Crane
== END 2019-07-23 13:58 | disposition home or self-care (01) | DRG 432 ==
LOC: 4SSUR 10:05
PROVIDERS: ADMIT Family Medicine; ATTEND Family Medicine
PROC: 0D598ZZ Destruction of Duodenum, Via Natural or Artificial Opening Endoscopic (ICD-10-PCS; 2019-07-22)
PROC: 06L38CZ Occlusion of Esophageal Vein with Extraluminal Device, Via Natural or Artificial Opening Endoscopic (ICD-10-PCS; principal; 2019-07-22 07:30)
PROC: 30233N1 Transfusion of Nonautologous Red Blood Cells into Peripheral Vein, Percutaneous Approach (ICD-10-PCS; 2019-07-22 07:30)
DX: K70.30 Alcoholic cirrhosis of liver without ascites (principal); I85.11 Secondary esophageal varices with bleeding; K31.811 Angiodysplasia of stomach and duodenum with bleeding; K29.61 Other gastritis with bleeding; D62 Acute posthemorrhagic anemia; F10.21 Alcohol dependence, in remission; I10 Essential (primary) hypertension; E78.5 Hyperlipidemia, unspecified; M19.90 Unspecified osteoarthritis, unspecified site; K21.9 Gastro-esophageal reflux disease without esophagitis; F17.210 Nicotine dependence, cigarettes, uncomplicated; G62.9 Polyneuropathy, unspecified; R16.1 Splenomegaly, not elsewhere classified; J44.9 Chronic obstructive pulmonary disease, unspecified; F41.9 Anxiety disorder, unspecified; F32.9 Major depressive disorder, single episode, unspecified; G31.84 Mild cognitive impairment of uncertain or unknown etiology; Z71.3 Dietary counseling and surveillance; Z79.890 Hormone replacement therapy; Z79.899 Other long term (current) drug therapy; Z90.710 Acquired absence of both cervix and uterus; Z98.890 Other specified postprocedural states; Z98.42 Cataract extraction status, left eye; Z85.42 Personal history of malignant neoplasm of other parts of uterus; Z98.41 Cataract extraction status, right eye; Z86.010 Personal history of colon polyps; Z92.21 Personal history of antineoplastic chemotherapy; Z92.3 Personal history of irradiation; Z86.73 Personal history of transient ischemic attack (TIA), and cerebral infarction without residual deficits; Z80.9 Family history of malignant neoplasm, unspecified
CPT/HCPCS: 36415; 43244; 43270; 80053; 82105; 82728; 83540; 83550; 83735; 85025; 85027; 85610; 86156; 86850; 86870; 86880; 86885; 86900; 86901; 86905; 86906; 86920; 86970; 86971; 86972; 94640

== ENCOUNTER → 2019-07-21 | Outpatient (CLI) | payer MEDICARE ==
[2019-07-21 08:36] LABS: INR 1.3 (<1.2); Prothrombin Time 12.8 sec (9.0-12.0)
[2019-07-21 08:51] LABS: ALT 11 U/L (4-34); AST 30 U/L (14-36); African American GFR (CKD) 48 (>60 ml/min/1.73 sqM); Albumin 2.6 g/dL (3.5-5.0); Albumin/Globulin Ratio 0.6; Alkaline Phosphatase 99 U/L (38-126); Anion Gap 9 mmol/L; Blood Urea Nitrogen 14 mg/dL (7-17); Calcium 7.8 mg/dL (8.4-10.2); Carbon Dioxide 21 mmol/L (22-30); Chloride 109 mmol/L (98-107); Globulin 4.7 g/dL; Glucose 102 mg/dL (74-99); Non-African American GFR(CKD) 41 (>60 ml/min/1.73 sqM); Potassium 3.8 mmol/L (3.5-5.1); Sodium 139 mmol/L (137-145); Total Bilirubin 0.5 mg/dL (0.2-1.3); Total Protein 7.3 g/dL (6.3-8.2)
[2019-07-21 08:56] LABS: Anisocytosis Slight; HCT 20.9 % (34.0-46.0); Hypochromasia Marked; MCHC 29.3 g/dL (31.0-37.0); MCV 105.8 fL (80.0-100.0); Macrocytosis Marked; Mean Platelet Volume 10.9; Platelet Count 111 k/uL (150-450); Poikilocytosis Slight; RBC 1.98 m/uL (3.80-5.40); RDW 18.5 % (11.5-15.5); WBC 8.6 k/uL (3.8-10.6)
[2019-07-21 09:00] LABS: HGB 6.1 gm/dL (11.4-16.0)
[2019-07-21 15:36] LABS: % Iron Saturation 12.78 (12.00-45.00); Iron 34 ug/dL (50-170); Total Iron Binding Capacity 266 ug/dL (228-460)
[2019-07-21 15:43] LABS: Ferritin 103.1 ng/mL (10.0-291.0)
== END | disposition home or self-care (01) ==
LOC: LABWHC1 08:07
PROVIDERS: ATTEND Internal Medicine Gastroenterology
DX: D64.9 Anemia, unspecified (principal); K74.60 Unspecified cirrhosis of liver
CPT/HCPCS: 36415; 80053; 82105; 82728; 83540; 83550; 85027; 85610

== ENCOUNTER 2019-08-10 09:47 | Inpatient (IN) | payer MEDICARE ==
[2019-08-10] MEDS ORDERED: IPRATROPIUM-ALBUTEROL 3 ML NEB INHALATION PRN (11:38)
[2019-08-10] MEDS ORDERED: methylPREDNISolone SOD SUCCI 125 MG/2 ML VIAL IV STA (11:41)
[2019-08-10] MEDS: SYMBICORT 160-4.5 MCG INHALER INHALATION SCH ×2 (12:43→20:45)
[2019-08-10] MEDS: IPRATROPIUM-ALBUTEROL 3 ML NEB INHALATION SCH ×3 (12:50→20:44)
[2019-08-10 13:12] LABS: Albumin 2.6 g/dL (3.5-5.0); Calcium 8.1 mg/dL (8.4-10.2); Potassium 3.9 mmol/L (3.5-5.1); Total Bilirubin 0.8 mg/dL (0.2-1.3); Total Protein 7.6 g/dL (6.3-8.2)
[2019-08-10] MEDS ORDERED: PROMETHAZINE HCL 6.25 MG/5 ML CUP PO PRN (13:22)
[2019-08-10] MEDS ORDERED: LOPERAMIDE 2 MG CAP PO PRN (13:22)
[2019-08-10] MEDS ORDERED: ACETAMINOPHEN TAB 325 MG TAB PO PRN (13:22)
[2019-08-10] MEDS: PANTOPRAZOLE 40 MG TABLET PO SCH (13:27)
[2019-08-10] MEDS: NICOTINE 14MG/24HR PATCH TRANSDERM SCH (13:27)
[2019-08-10] MEDS: INSULIN ASPART (NovoLOG) 100 UNIT/ML VIAL SQ SCH ×3 (13:33→21:01)
[2019-08-10 13:34] LABS: Anisocytosis Slight; HCT 24.3 % (34.0-46.0); HGB 7.2 gm/dL (11.4-16.0); Hypochromasia Marked; MCH 30.8 pg (25.0-35.0); MCHC 29.6 g/dL (31.0-37.0); MCV 104.2 fL (80.0-100.0); Macrocytosis Moderate; Mean Platelet Volume 10.9; Platelet Count 100 k/uL (150-450); RBC 2.33 m/uL (3.80-5.40); WBC 7.4 k/uL (3.8-10.6)
[2019-08-10 13:49] LABS: Lymphocytes # (M) 0.52 k/uL (1.0-4.8); Monocytes # (M) 0.15 k/uL (0-1.0); Neutrophils # (M) 6.73 k/uL (1.3-7.7); Neutrophils % (M) 91 %; Nucleated Red Blood Cells 0 /100 WBC (0-0); Total Cells Counted 100
[2019-08-10 13:53] LABS: Mixed Population RBC Present; Poikilocytosis (M) Present
[2019-08-10] MEDS: traMADol 50 MG TAB PO PRN (14:25)
--- NOTE | 2019-08-10 15:29 | XR ---
Left foot HISTORY: Trauma and pain 3 views of the left foot Bone mineralization is reduced which may limit sensitivity. Alignment, joint spaces are maintained. T here is a radiopaque sliver-like metallic density in the medial aspect of the proximal portion of the first digit at the level of the proximal phalanx within the soft tissues measuring approximately 3 m m, correlate for history of foreign body. There is a plantar calcaneal spur. There is enthesophyte at the insertion of the Achilles tendon. There is soft tissue swelling. IMPRESSION: No acute fracture or dislocation is evident. Foreign body. Osteopenia as described.
[2019-08-10] MEDS ORDERED: SODIUM FERRIC GLUCONAT-SUCROSE 125 MG in SODIUM CHLORIDE 0.9% 100 ML IVPB SCH (16:00)
[2019-08-10] MEDS: FUROSEMIDE 10 MG/ML 4 ML VIAL IV SCH ×2 (16:33→21:07)
[2019-08-10] MEDS: GABAPENTIN 400 MG CAP PO SCH ×2 (16:34→21:07)
[2019-08-10] MEDS: PROPRANOLOL 10 MG TAB PO SCH ×2 (16:34→21:08)
[2019-08-10] MEDS: BACLOFEN 10 MG TAB PO SCH ×2 (16:34→21:09)
[2019-08-10] MEDS: SODIUM FERRIC GLUCONAT-SUCROSE 125 MG in SODIUM CHLORIDE 0.9% 100 ML IVPB SCH (16:34)
[2019-08-10 17:20] LABS: Glucose,Whole Blood 172 mg/dL (75-99)
[2019-08-10] MEDS: methylPREDNISolone SOD SUCCI 125 MG/2 ML VIAL IV SCH ×2 (17:46→23:34)
[2019-08-10 18:44] LABS: % Iron Saturation 12.27 (12.00-45.00)
[2019-08-10 20:33] LABS: Glucose,Whole Blood 173 mg/dL (75-99)
[2019-08-10] MEDS: DONEPEZIL 10 MG TAB PO SCH (21:08)
[2019-08-10] MEDS: MEMANTINE 10 MG TAB PO SCH (21:08)
[2019-08-10] MEDS: FERROUS SULFATE 325 MG TAB PO SCH (21:09)
[2019-08-11] MEDS: traMADol 50 MG TAB PO PRN ×2 (05:08→21:34)
[2019-08-11] MEDS: PANTOPRAZOLE 40 MG TABLET PO SCH (06:23)
[2019-08-11] MEDS: LEVOTHYROXINE 25 MCG TAB PO SCH (06:23)
[2019-08-11 06:29] LABS: Anisocytosis Slight; HCT 23.2 % (34.0-46.0); Hypochromasia Marked; MCH 31.7 pg (25.0-35.0); MCHC 30.3 g/dL (31.0-37.0); MCV 104.4 fL (80.0-100.0); Macrocytosis Marked; Mean Platelet Volume 11.5; Platelet Count 86 k/uL (150-450); RBC 2.22 m/uL (3.80-5.40); RDW 18.1 % (11.5-15.5); WBC 4.2 k/uL (3.8-10.6)
[2019-08-11 06:37] LABS: Calcium 8.2 mg/dL (8.4-10.2); Potassium 4.9 mmol/L (3.5-5.1)
[2019-08-11 06:55] LABS: Glucose,Whole Blood 161 mg/dL (75-99)
[2019-08-11 07:15] LABS: Lymphocytes # (M) 0.17 k/uL (1.0-4.8); Neutrophils # (M) 4.03 k/uL (1.3-7.7); Neutrophils % (M) 96 %; Nucleated Red Blood Cells 0 /100 WBC (0-0); Total Cells Counted 100
[2019-08-11 07:16] LABS: Large Platelets Present; Ovalocytes Present
--- NOTE | 2019-08-11 07:51 | ECHOF ---
Referral Reason:LV fx MEASUREMENTS -------- HEIGHT: 165.1 cm WEIGHT: 75.7 kg BP: 151/74 RVIDd: 3.0 cm (< 3.3) IVSd: 1.0 cm (0.6 - 1.1) LVIDd: 4.2 cm (3.9 - 5.3) LVPWd: 1.1 cm (0.6 - 1.1) IVSs: 1.4 cm LVIDs: 2.2 cm LVPWs: 1.8 cm LAESV Index (A-L): 43.10 ml/m Ao Diam: 2.6 cm (2.0 - 3.7) AV Cusp: 1.0 cm (1.5 - 2.6) LA Diam: 5.5 cm (2.7 - 3.8) MV EXCURSION: 19.027 mm (> 18.000) MV EF SLOPE: 62 mm/s (70 - 150) EPSS: 0.4 cm MV E Magnus: 1.13 m/s MV DecT: 283 ms MV A Magnus: 1.39 m/s MV E/A Ratio: 0.81 AV maxP.23 mmHg AV meanP.80 mmHg AR PHT: 382 ms RAP: 5.00 mmHg RVSP: 20.25 mmHg FINDINGS -------- Sinus rhythm. This was a technically good study. The left ventricular size is normal. There is mild concentric left ventricular hypertrophy. Overa ll left ventricular systolic function is normal with, an EF between 55 - 60 %. Increased LAP. Grade 2 Diastolic Dysfuntion. The right ventricle is normal in size. LA is severely dilated >40 ml/m2 The right atrial size is normal. Aortic valve is trileaflet and is mildly thickened. There is mild aortic valve sclerosis. There i s mild aortic regurgitation. The mitral valve is normal. The mitral valve leaflets are mildly thickened. Mild mitral regurgita tion is present. The tricuspid valve appears structurally normal. Mild tricuspid regurgitation present. Right vent ricular systolic pressure is normal at < 35 mmHg. There is no pulmonic regurgitation present. The aortic root size is normal. IVC Not well visulized. There is no pericardial effusion. CONCLUSIONS -------- 1. Sinus rhythm. 2. This was a technically good study. 3. The left ventricular size is normal. 4. There is mild concentric left ventricular hypertrophy. 5. Overall left ventricular systolic function is normal with, an EF between 55 - 60 %. 6. Increased LAP. Grade 2 Diastolic Dysfuntion. 7. The right ventricle is normal in size. 8. LA is severely dilated >40 ml/m2 9. The right atrial size is normal. 10. Aortic valve is trileaflet and is mildly thickened. 11. There is mild aortic valve sclerosis. 12. There is mild aortic regurgitation. 13. The mitral valve is normal. 14. The mitral valve leaflets are mildly thickened. 15. Mild mitral regurgitation is present. 16. The tricuspid valve appears structurally normal. 17. Mild tricuspid regurgitation present. 18. Right ventricular systolic pressure is normal at < 35 mmHg. 19. There is no pulmonic regurgitation present. 20. The aortic root size is normal. 21. IVC Not well visulized. 22. There is no pericardial effusion. [employer] SUPERVISOR: Richa Brandt RDCS
[2019-08-11] MEDS: PROPRANOLOL 10 MG TAB PO SCH ×3 (07:55→21:35)
[2019-08-11] MEDS: NICOTINE 14MG/24HR PATCH TRANSDERM SCH (07:55)
[2019-08-11] MEDS: ESCITALOPRAM 10 MG TAB PO SCH (07:55)
[2019-08-11] MEDS: LORATADINE 10 MG TAB PO SCH (07:55)
[2019-08-11] MEDS: BACLOFEN 10 MG TAB PO SCH ×3 (07:55→21:35)
[2019-08-11] MEDS: MEMANTINE 10 MG TAB PO SCH ×2 (07:55→20:39)
[2019-08-11] MEDS: GABAPENTIN 400 MG CAP PO SCH ×3 (07:55→21:34)
[2019-08-11] MEDS: FERROUS SULFATE 325 MG TAB PO SCH ×2 (07:55→20:39)
[2019-08-11] MEDS: methylPREDNISolone SOD SUCCI 125 MG/2 ML VIAL IV SCH (07:56)
[2019-08-11] MEDS: INSULIN ASPART (NovoLOG) 100 UNIT/ML VIAL SQ SCH ×4 (07:57→20:38)
[2019-08-11] MEDS: FUROSEMIDE 10 MG/ML 4 ML VIAL IV SCH ×2 (07:57→17:22)
[2019-08-11] MEDS ORDERED: LISINOPRIL 10 MG TAB PO STA (08:56)
[2019-08-11] MEDS: IPRATROPIUM-ALBUTEROL 3 ML NEB INHALATION SCH ×4 (08:59→20:48)
[2019-08-11] MEDS: SYMBICORT 160-4.5 MCG INHALER INHALATION SCH ×2 (08:59→20:48)
[2019-08-11] MEDS ORDERED: amLODIPine 10 MG TAB PO SCH (09:00)
[2019-08-11] MEDS ORDERED: FUROSEMIDE 20 MG TAB PO SCH (09:00)
[2019-08-11] MEDS ORDERED: LISINOPRIL 10 MG TAB PO SCH (09:00)
[2019-08-11] MEDS: amLODIPine 5 MG TAB PO SCH (09:20)
[2019-08-11] MEDS: SODIUM FERRIC GLUCONAT-SUCROSE 125 MG in SODIUM CHLORIDE 0.9% 100 ML IVPB SCH (09:28)
--- NOTE | 2019-08-11 09:43 | HP ---
HISTORY AND PHYSICAL A 74-year-old white female admitted with severe marked peripheral edema with most likely diastolic congestive heart failure secondary to acute on chronic diastolic heart failure. Significant amount of swelling in the legs. She is also found to be severely anemic and low albumin levels. She has a marked peripheral edema. She says she is much improved with IV Lasix since she has been admitted. She is on IV iron, but her hemoglobin dropped 7.2 to 7 today. Awaiting consultation with Dr. Calloway for possible endoscopy versus blood transfusion. Continue with IV iron, IV Lasix which is greatly improving her extremities. HOME MEDICATIONS: 1. Norvasc 10 mg daily. 2. Lioresal 5 mg b.i.d. 3. Symbicort 2 puffs b.i.d. 4. Aricept 10 mg daily. 5. Lexapro 10 mg daily. 6. Iron sulfate 325 b.i.d. 7. Lasix 40, have her on IV q.12. 8. Gabapentin 800 t.i.d. 9. DuoNeb q.i.d. 10.Synthroid 25 mcg daily. 11.Zestril 10 mg daily. 12.Claritin 10 mg daily. 13.Namenda 10 mg b.i.d. 14.IV Solu-Medrol has been given 8 mg q.8 hours. 15.Nicotine 14 mg daily. 16.Protonix 40 mg daily. 17.Inderal 10 t.i.d. 18.Requip 0.25 q.h.s. 19. daily 125 mg. 14-POINT REVIEW OF SYSTEMS: Positive for lightheaded, dizziness, generalized weakness, severe extremity edema both legs partially due to we think low protein levels as well as possible liver failure and some mild congestive heart failure versus COPD. She has a history of GI bleed having esophageal variceal clips placed twice in the last 6 months. Last time was a month ago with 4 clips. Today, her vitals are improved. Temperature 97.5, blood pressure 150s to 170s/60s to 90s, O2 saturation 98-100, pulse 78 to 74, respiratory rate us 16 to 18. CARDIOVASCULAR: S1-S2. LUNGS: Show rales at the bases. GI: Distended, obesity. EXTREMITIES: Show a large amount of anasarca changes from the waist all the way down to the lower legs. INTEGUMENT: She looks pale and weak. LUNGS: Show scattered rhonchi x4. HEART: S1, S2 without murmurs, rubs, gallops. PSYCH: Fair mood and affect. NEUROLOGIC: Cranial nerves are intact. ASSESSMENT: Acute on chronic diastolic CHF, large amounts of swelling in the legs for which she is unable to ambulate, acute on chronic severe anemia secondary to esophageal varices number. EGD per GI, who is consulted at this time. Possible blood transfusion if hemoglobin drops below 7. She is on IV Fioricet. COPD, restless legs syndrome, hypoalbuminemia, acute renal insufficiency, hypertension acceleration, hypothyroidism, multiple medical problems. Prognosis is guarded. She has thrombocytopenia secondary to possible GI bleeding. Await for consultation from GI and Cardiology. Continue with IV Lasix, IV Fioricet. Transfuse if hemoglobin goes below 7. Possible EGD for another clipping may be needed for esophageal varices as hemoglobin keeps dropping. MMODL / IJN: [id number] /
--- NOTE | 2019-08-11 09:57 | XR ---
EXAMINATION TYPE: XR chest 2V DATE OF EXAM: 08/11/2019 COMPARISON: 01/13/2019 INDICATION: Shortness breath TECHNIQUE: Frontal and lateral views of the chest are obtained. FINDINGS: The heart size is normal. The pulmonary vasculature is prominent. There is diffuse increased lung markings which are nonspecific. These were present in 2019. A right central venous catheter with the tip in the distal superior vena cava is present. IMPRESSION: 1. Correlate for mild volume overload.
--- NOTE | 2019-08-11 10:38 | P.CRDCN ---
History of Present Illness History of present illness: HISTORY OF PRESENTING ILLNESS This is a pleasant 74-year-old female past medical history significant for hypertension, COPD, chronic nicotine dependence, anemia, esophageal varices, dyslipidemia and uterine cancer 6 yrs ago s/p chemotherapy and hysterectomy. She denies prior history or diagnosis of coronary artery disease or heart failure. We have been asked to see in consultation for heart failure. She was sent in to the hospital as a direct admit from her PCP's office secondary to increase weight gain, edema and shortness of breath. She states for the previous 3 months she has been steadily gaining weight. She is up by 26 pounds. She has also noted an increase in shortness of breath. She states it started at her feet and then slowly moved up or she feels full even in her abdomen. She was started on oral diuretics as an outpatient however states her symptoms continued to worsen and she was not urinating. She was initiated yesterday on Lasix IV 40 mg twice a day. Since admission she states her breathing has improved some and she can tell the full sensation in her abdomen has improved as well. She has been up urinating quite frequently through the night however there is inaccurate documentation on the medical record. No chest x-ray was obtained on admission. Chest x-ray obtained this morning after diuresis reveals mild volume overload. Laboratory data reviewed, WBC 4.2, hemoglobin 7, platelets 86, sodium 141, potassium 4.9, creatinine 1.21, NTproBNP 1870. Current daily cardiac medications include propanolol 10 mg TID, lisinopril 10 mg daily, lasix 20 mg daily and amlodipine 10 mg daily. REVIEW OF SYSTEMS At the time of my exam: CONSTITUTIONAL: Denies fever or chills. CARDIOVASCULAR: Compplains of shortness of breath. Denies chest pain, orthopnea, PND or palpitations. RESPIRATORY: Denies cough. GASTROINTESTINAL: Denies abdominal pain, diarrhea, constipation, nausea or vomiting. MUSCULOSKELETAL: Denies myalgias. NEUROLOGIC: Denies numbness, tingling or weakness. ENDOCRINE: Denies fatigue, weight change, polydipsia or polyurina. GENITOURINARY: Denies burning, hematuria or urgency with micturation. HEMATOLOGIC: Denies history of anemia or bleeding. PHYSICAL EXAMINATION Blood pressure 176/93 heart rate 80 afebrile and maintaining oxygen saturation on room air. CONSTITUTIONAL: No apparent distress. HEENT: Head is normocephalic. Pupils are equal, round. Sclerae anicteric. Mucous membranes of the mouth are moist. No JVD. No carotid bruit. CHEST EXAMINATION: Course rales throughout, no wheezes or rhonchi. No chest wall tenderness is noted on palpation or with deep breathing. HEART EXAMINATION: Regular rate and rhythm. S1, S2 heard. Systolic ejection murmur at the left sternal border, no gallops or rub. ABDOMEN: Soft, nontender. Positive bowel sounds. EXTREMITIES: 2+ peripheral pulses, 2+ bilateral lower extremity pitting edema up to the knee and no calf tenderness. NEUROLOGIC EXAMINATION: Patient is awake, alert and oriented x3. ASSESSMENT Acute onset of diastolic heart failure Hypoalbuminemia COPD Anemia Hypertension Esophageal varices History of uterine cancer PLAN This a combination of diastolic heart failure, anemia, COPD and hypoalbuminemia. Obtain chest xray. Increase lasix to 40 mg TID. Document accurate intake and output along with daily weights. Decrease amlodipine to 5 mg daily, this may be causing some of her lower extremity swelling. Increase lisinopril to 20 mg daily. Obtain baseline EKG. Follow renal function and electrolytes in the morning. Further recommendations to follow based on clinical course. Thank you kindly for this consultation. Nurse Practitioner note has been reviewed, I agree with a documented findings and plan of care. Patient was seen and examined. Past Medical History Past Medical History: Cancer, Heart Failure, COPD, CVA/TIA, GERD/Reflux, GI Bleed, Hyperlipidemia, Hypertension, Osteoarthritis (OA) Additional Past Medical History / Comment(s): hx. uterine cancer, chemo 6 years ago, TIA several yrs. ago-forgetful, neuropathy feet & legs & hands, ANEMIA History of Any Multi-Drug Resistant Organisms: None Reported Past Surgical History: Hysterectomy, Tonsillectomy Additional Past Surgical History / Comment(s): COLONOSCOPY. EGD. BILAT CATARACTS REMOVED Past Anesthesia/Blood Transfusion Reactions: No Reported Reaction Past Psychological History: Anxiety, Depression Smoking Status: Current every day smoker Past Alcohol Use History: None Reported Additional Past Alcohol Use History / Comment(s): SMOKES 1PPD SINCE AGE 12 Past Drug Use History: None Reported - Past Family History Mother Family Medical History: Cancer Father History Unknown: Yes Family Medical History: Cancer Brother(s) Family Medical History: Cancer Medications and Allergies Home Medications Medication Instructions Recorded Confirmed Type Ferrous Sulfate [Feosol] 325 mg PO BID 10/29/16 08/10/19 History Donepezil [Aricept] 10 mg PO HS 11/07/17 08/10/19 History Levothyroxine Sodium [Synthroid] 25 mcg PO DAILY 11/07/17 08/10/19 History Omeprazole [PriLOSEC] 40 mg PO DAILY 11/07/17 08/10/19 History Cetirizine HCl [Zyrtec] 10 mg PO DAILY 01/14/19 08/10/19 History Escitalopram [Lexapro] 10 mg PO DAILY 01/14/19 08/10/19 History Gabapentin [Neurontin] 800 mg PO TID 01/14/19 08/10/19 History Memantine [Namenda] 10 mg PO BID 01/14/19 08/10/19 History Lisinopril [Zestril] 10 mg PO DAILY #30 tab 01/15/19 08/10/19 Rx amLODIPine [Norvasc] 10 mg PO DAILY #30 tab 01/15/19 08/10/19 Rx Acetaminophen Tab [Tylenol] 650 mg PO Q6H PRN 05/01/19 08/10/19 History Ipratropium-Albuterol Nebulize 3 ml INHALATION RT-QID PRN 05/01/19 08/10/19 History [Duoneb 0.5 mg-3 mg/3 ml Soln] Baclofen 5 mg PO TID 06/28/19 08/10/19 History Promethazine 6.25MG/5Ml [Phenergan 6.25 mg PO HS PRN 06/28/19 08/10/19 History Syrup] SILVER sulfADIAZINE Cream 1 applic TOPICAL BID 06/28/19 08/10/19 History [Silvadene 1% Cream] rOPINIRole HCL [Requip] 0.25 mg PO HS 06/28/19 08/10/19 History Propranolol [Inderal] 10 mg PO TID #90 tab 06/30/19 08/10/19 Rx Furosemide [Lasix] 20 mg PO DAILY 07/21/19 08/10/19 History traMADol HCl [Ultram] 50 mg PO BID PRN 07/21/19 08/10/19 History Loperamide [Imodium] 2 mg PO QAM PRN 08/10/19 08/10/19 History Allergies Allergy/AdvReac Type Severity Reaction Status Date / Time No Known Allergies Allergy Verified 08/10/19 12:57 Physical Exam Vitals: Vital Signs Temp Pulse Pulse Resp BP Pulse Ox 08/11/19 05:33 97.5 F L 78 16 176/93 98 08/10/19 21:28 96.1 F L 74 16 150/67 100 08/10/19 20:58 80 08/10/19 20:45 76 16 08/10/19 16:24 88 08/10/19 16:11 87 18 08/10/19 12:59 88 08/10/19 12:50 80 08/10/19 11:54 97.7 F 81 17 151/74 96 08/10/19 11:04 97.7 F 81 17 151/74 96 Intake and Output 08/10/19 08/11/19 08/11/19 22:59 06:59 14:59 Intake Total 590 590 140 Output Total 400 Balance 590 590 -260 Intake: Oral 590 590 140 Output: Urine 400 Other: # Voids 2 Weight 79.5 kg Results 08/11/19 06:07 08/11/19 06:07 Cardiac Enzymes 08/10/19 Range/Units 12:50 AST 26 (14-36) U/L CBC 08/10/19 08/11/19 Range/Units 12:50 06:07 WBC 7.4 4.2 (3.8-10.6) k/uL RBC 2.33 L 2.22 L (3.80-5.40) m/uL Hgb 7.2 L 7.0 L (11.4-16.0) gm/dL Hct 24.3 L 23.2 L (34.0-46.0) % Plt Count 100 L 86 L (150-450) k/uL Comprehensive Metabolic Panel 08/10/19 08/11/19 Range/Units 12:50 06:07 Sodium 141 141 (137-145) mmol/L Potassium 3.9 4.9 (3.5-5.1) mmol/L Chloride 109 H 109 H (98-107) mmol/L Carbon Dioxide 25 27 (22-30) mmol/L BUN 16 19 H (7-17) mg/dL Creatinine 1.17 H 1.21 H (0.52-1.04) mg/dL Glucose 93 161 H (74-99) mg/dL Calcium 8.1 L 8.2 L (8.4-10.2) mg/dL AST 26 (14-36) U/L ALT 9 (4-34) U/L Alkaline Phosphatase 108 (38-126) U/L Total Protein 7.6 (6.3-8.2) g/dL Albumin 2.6 L (3.5-5.0) g/dL Current Medications Generic Name Dose Route Start Last Admin Trade Name Freq PRN Reason Stop Dose Admin Acetaminophen 650 mg 08/10/19 13:22 Tylenol Tab PO Q6H PRN Pain Albuterol/Ipratropium 3 ml 08/10/19 12:00 08/11/19 08:59 Duoneb 0.5 Mg-3 Mg/3 Ml Soln INHALATION 3 ml RT-QID JOSR Administration Albuterol/Ipratropium 3 ml 08/10/19 11:38 Duoneb 0.5 Mg-3 Mg/3 Ml Soln INHALATION RT-Q2H PRN Shortness Of Breath Or Wheezing Amlodipine Besylate 5 mg 08/11/19 09:00 Norvasc PO DAILY JOSR Baclofen 5 mg 08/10/19 16:00 08/11/19 07:55 Lioresal PO 5 mg TID JOSR Administration Budesonide/Formoterol Fumarate 2 puff 08/10/19 11:41 08/11/19 08:59 Symbicort 160-4.5 Mcg Inhaler INHALATION 2 puff RT-BID JOSR Administration Donepezil HCl 10 mg 08/10/19 21:00 08/10/19 21:08 Aricept PO 10 mg HS JOSR Administration Escitalopram Oxalate 10 mg 08/11/19 09:00 08/11/19 07:55 Lexapro PO 10 mg DAILY JOSR Administration Ferrous Sulfate 325 mg 08/10/19 21:00 08/11/19 07:55 Feosol PO 325 mg BID JOSR Administration Furosemide 40 mg 08/11/19 16:00 Lasix IV Q8HR JOSR Gabapentin 800 mg 08/10/19 16:00 08/11/19 07:55 Neurontin PO 800 mg TID JOSR Administration Ferric Sodium Gluconate 125 mg 110 mls @ 100 mls/hr 08/10/19 16:00 08/10/19 16:34 / Sodium Chloride IVPB 08/12/19 10:05 100 mls/hr DAILY JOSR Administration Insulin Aspart 0 unit 08/10/19 12:30 08/11/19 07:57 Novolog SQ 3 unit ACHS JOSR Administration Protocol Levothyroxine Sodium 25 mcg 08/11/19 06:30 08/11/19 06:23 Synthroid PO 25 mcg DAILY@0630 JOSR Administration Lisinopril 20 mg 08/12/19 09:00 Zestril PO DAILY JOSR Loperamide HCl 2 mg 08/10/19 13:22 Imodium PO QAM PRN Diarrhea Loratadine 10 mg 08/11/19 09:00 08/11/19 07:55 Claritin PO 10 mg DAILY JOSR Administration Memantine 10 mg 08/10/19 21:00 08/11/19 07:55 Namenda PO 10 mg BID JOSR Administration Methylprednisolone Sodium Succinate 40 mg 08/11/19 16:00 Solu-Medrol IV Q8HR [facility] Nicotine 1 patch 08/10/19 11:45 08/11/19 07:55 Habitrol 14mg/24hr Patch TRANSDERM 1 patch DAILY JOSR Administration Pantoprazole Sodium 40 mg 08/10/19 11:45 08/11/19 06:23 Protonix PO 40 mg DAILY@0630 JOSR Administration Promethazine HCl 6.25 mg 08/10/19 13:22 Phenergan Syrup PO HS PRN Cough Propranolol HCl 10 mg 08/10/19 16:00 08/11/19 07:55 Inderal PO 10 mg TID JOSR Administration Ropinirole HCl 0.25 mg 08/10/19 21:00 08/10/19 21:08 Requip PO 0.25 mg HS JOSR Administration Silver Sulfadiazine 1 applic 08/10/19 21:00 08/11/19 07:58 Silvadene Cream TOPICAL 1 applic BID JOSR Administration Tramadol HCl 50 mg 08/10/19 13:22 08/11/19 05:08 Ultram PO 50 mg BID PRN Administration Pain Intake and Output 08/10/19 08/11/19 08/11/19 22:59 06:59 14:59 Intake Total 590 590 140 Output Total 400 Balance 590 590 -260 Intake: Oral 590 590 140 Output: Urine 400 Other: # Voids 2 Weight 79.5 kg 08/11/19 06:07 08/11/19 06:07
[2019-08-11 11:05] LABS: Glucose,Whole Blood 186 mg/dL (75-99)
[2019-08-11] MEDS ORDERED: Magnesium Replacement Protocol 1 EACH MISC MISCELLANE PRN ×2 (14:23→14:52)
[2019-08-11 17:03] LABS: Glucose,Whole Blood 206 mg/dL (75-99)
[2019-08-11] MEDS: methylPREDNISolone SOD SUCCI 40 MG/ML 1 ML VIAL IV SCH (17:23)
[2019-08-11] MEDS: MAGNESIUM SULFATE-D5W PMX 1 GM in DEXTROSE/WATER 1 100ML.BAG IVPB SCH ×2 (17:25→18:10)
--- NOTE | 2019-08-11 18:06 | CONS ---
CONSULTATION DATE OF DICTATION: 08/11/2019 REASON FOR CONSULTATION: Anemia. HISTORY OF PRESENT ILLNESS: The patient is a 74-year-old pleasant white female who was recently seen in consultation about 2 months ago with history of alcoholic cirrhosis of the liver diagnosed about 3 years ago and chronic persistent anemia. She was admitted to the hospital in May of 2019 with a hemoglobin of 7, requiring 2 units of blood transfusion. At that time she had an upper endoscopy done by me that showed large mid and distal esophageal varices, for which she underwent variceal ligation. She also had mild portal hypertensive gastropathy. She also had a colonoscopy in May of 2017 that was within normal limits. The patient subsequently was re-admitted to the hospital on July 23 and once again had a repeat upper endoscopy by Dr. Monroe that showed esophageal varices and angioectasia, for which she underwent variceal band ligation and cautery using a Gold probe of the duodenal angioectasia. Now she is admitted with exacerbation of COPD and shortness of breath. She was noted to have anemia with a hemoglobin of 7, and we are consulted in regard to this issue. She denies any abdominal pain. No nausea, vomiting. No rectal bleeding or melena. PAST MEDICAL HISTORY: Past medical history is significant for alcoholic cirrhosis of the liver diagnosed 3 years ago, history of esophageal varices, portal hypertensive gastropathy, degenerative joint disease, hypertension, hyperlipidemia. PAST SURGICAL HISTORY: Tonsillectomy, hysterectomy, bilateral cataract surgery, multiple EGDs as mentioned above, colonoscopy 2 years ago. ALLERGIES: NONE. MEDICATIONS: Medications at home include Requip, Norvasc, Feosol, Lexapro, Neurontin, Prilosec, Namenda, Zestril, Synthroid, Zyrtec, vitamin D3, Aricept, Lasix and Tylenol. SOCIAL HISTORY: No smoking. Quit alcohol 4 years ago. FAMILY HISTORY: Unremarkable. REVIEW OF SYSTEMS: CARDIOPULMONARY: No chest pain or shortness of breath. GENITOURINARY: No dysuria or hematuria. MUSCULOSKELETAL: Unremarkable. SKIN: Unremarkable. ENDOCRINE: Unremarkable. NEUROLOGY: Occasional confusion and forgetfulness. PSYCHIATRY: Unremarkable. ENT/VISION: Unremarkable. CONSTITUTIONAL: No recent weight loss. No fever, chills, night sweats. PHYSICAL EXAMINATION: She appears comfortable. No apparent distress. VITAL SIGNS: Stable. Blood pressure is 115/55, pulse rate 65, temperature 97.7. HEENT examination unremarkable. Conjunctivae pink. Sclerae anicteric. Oral cavity no lesions. NECK: No JVD or lymph node enlargement. CHEST: Clear to auscultation. HEART: Regular rate and rhythm. ABDOMEN: Soft. Bowel sounds are positive. No organomegaly. EXTREMITIES: No pedal edema. SKIN: No rashes. NEUROLOGIC: She is alert and oriented x3. No focal deficits. LABS: Labs done from today show WBC 4.2, hemoglobin 7, platelets 86,000. Basic metabolic panel is within normal limits. Iron saturation 12%, iron 27, TIBC 224. IMPRESSION: 1. Macrocytic anemia and clinically no evidence of active ongoing bleeding. She had an EGD done in May of 2019 as well as July of 2019 which revealed esophageal varices, for which she underwent esophageal variceal ligation, and portal hypertensive gastropathy. Colonoscopy 2 years ago was unremarkable. Most likely anemia is multifactorial in etiology, most likely anemia of chronic disease from chronic liver disease with portal hypertension and hypersplenism. Clinically no evidence of active bleeding. 2. Thrombocytopenia secondary to underlying cirrhosis of the liver. 3. Exacerbation of chronic obstructive pulmonary disease. 4. History of hypertension/hyperlipidemia. RECOMMENDATIONS: 1. Since the patient has no evidence of active bleeding, no plans for any endoscopic intervention at the present time. 2. If the hemoglobin is less than 7, she can be transfused with a unit of blood transfusion. 3. Monitor CBC on a daily basis. 4. Continue with iron supplements. 5. Continue with Inderal 10 mg 3 times daily. 6. Protonix 40 mg daily. We will follow with you closely. Thank you for this consultation. MMODL / IJN: [id number] /
[2019-08-11 20:09] LABS: Glucose,Whole Blood 193 mg/dL (75-99)
[2019-08-11] MEDS: DONEPEZIL 10 MG TAB PO SCH (20:40)
[2019-08-12] MEDS: FUROSEMIDE 10 MG/ML 4 ML VIAL IV SCH ×2 (00:24→08:35)
[2019-08-12] MEDS: methylPREDNISolone SOD SUCCI 40 MG/ML 1 ML VIAL IV SCH ×4 (00:24→23:43)
[2019-08-12] MEDS: LEVOTHYROXINE 25 MCG TAB PO SCH (05:53)
[2019-08-12] MEDS: PANTOPRAZOLE 40 MG TABLET PO SCH (05:53)
[2019-08-12 07:00] LABS: Anisocytosis Slight; HCT 21.7 % (34.0-46.0); Hypochromasia Marked; MCHC 29.6 g/dL (31.0-37.0); MCV 104.4 fL (80.0-100.0); Macrocytosis Marked; Mean Platelet Volume 12.1; RBC 2.08 m/uL (3.80-5.40); RDW 18.4 % (11.5-15.5); WBC 9.8 k/uL (3.8-10.6)
[2019-08-12 07:05] LABS: Glucose,Whole Blood 146 mg/dL (75-99)
[2019-08-12 07:16] LABS: Albumin 2.4 g/dL (3.5-5.0); Calcium 7.7 mg/dL (8.4-10.2); Magnesium 1.9 mg/dL (1.6-2.3); Total Bilirubin 0.5 mg/dL (0.2-1.3); Total Protein 6.9 g/dL (6.3-8.2)
[2019-08-12 07:19] LABS: HGB 6.4 gm/dL (11.4-16.0)
[2019-08-12 07:20] LABS: Platelet Count 77 k/uL (150-450)
[2019-08-12] MEDS: IPRATROPIUM-ALBUTEROL 3 ML NEB INHALATION SCH ×4 (08:21→21:55)
[2019-08-12] MEDS: SYMBICORT 160-4.5 MCG INHALER INHALATION SCH ×2 (08:21→21:55)
[2019-08-12] MEDS: NICOTINE 14MG/24HR PATCH TRANSDERM SCH (08:32)
[2019-08-12] MEDS: INSULIN ASPART (NovoLOG) 100 UNIT/ML VIAL SQ SCH ×4 (08:33→21:49)
[2019-08-12] MEDS: LORATADINE 10 MG TAB PO SCH (08:33)
[2019-08-12] MEDS: BACLOFEN 10 MG TAB PO SCH ×3 (08:33→21:46)
[2019-08-12] MEDS: PROPRANOLOL 10 MG TAB PO SCH ×3 (08:33→21:51)
[2019-08-12] MEDS: LISINOPRIL 20 MG TAB PO SCH (08:34)
[2019-08-12] MEDS: amLODIPine 5 MG TAB PO SCH (08:34)
[2019-08-12] MEDS: GABAPENTIN 400 MG CAP PO SCH ×3 (08:34→21:51)
[2019-08-12] MEDS: ESCITALOPRAM 10 MG TAB PO SCH (08:35)
[2019-08-12] MEDS: FERROUS SULFATE 325 MG TAB PO SCH ×2 (08:35→21:45)
[2019-08-12] MEDS: MEMANTINE 10 MG TAB PO SCH (08:35)
[2019-08-12] MEDS: SODIUM FERRIC GLUCONAT-SUCROSE 125 MG in SODIUM CHLORIDE 0.9% 100 ML IVPB SCH (08:37)
[2019-08-12 08:38] LABS: Neutrophils % (M) 98 %; Nucleated Red Blood Cells 0 /100 WBC (0-0); Poikilocytosis (M) Present; Rouleaux Present; Total Cells Counted 100
[2019-08-12] MEDS ORDERED: FUROSEMIDE 10 MG/ML 2 ML VIAL IV ONE (08:41)
[2019-08-12] MEDS ORDERED: FUROSEMIDE 10 MG/ML 4 ML VIAL IV SCH (09:00)
--- NOTE | 2019-08-12 10:06 | P.PN ---
Subjective HISTORY OF PRESENTING ILLNESS This is a pleasant 74-year-old female past medical history significant for hypertension, COPD, chronic nicotine dependence, anemia, esophageal varices, dyslipidemia and uterine cancer 6 yrs ago s/p chemotherapy and hysterectomy. She denies prior history or diagnosis of coronary artery disease or heart failure. We have been asked to see in consultation for heart failure. She is seen and examined laying flat resting comfortably in bed in no acute distress. She states the fullness in her abdomen and legs has improved significantly since admission. She still feels short of breath with exertion and mildly at rest. No chest pain, dizziness or palpitations. Blood pressure 113/72 heart rate 86 afebrile and maintaining oxygen saturation on nasal cannula. Laboratory data reviewed, WBC 9.8, hemoglobin 6.4, platelets 77, sodium 141, potassium 4.0, creatinine 1.55, magnesium 1.9 and albumin 2.4. A transfusion of PRBC has been ordered for this morning. Maintaining a negative fluid balance. PHYSICAL EXAMINATION CONSTITUTIONAL: No apparent distress. HEENT: Head is normocephalic. Pupils are equal, round. Sclerae anicteric. Mucous membranes of the mouth are moist. No JVD. No carotid bruit. CHEST EXAMINATION: No rales, wheezes or rhonchi. No chest wall tenderness is noted on palpation or with deep breathing. HEART EXAMINATION: Regular rate and rhythm. S1, S2 heard. Systolic ejection murmur at the left sternal border, no gallops or rub. EXTREMITIES: 2+ peripheral pulses, trace bilateral lower extremity pitting edema up to the knee, significant improvement from yesterday's exam and no calf tenderness. ASSESSMENT Acute onset of diastolic heart failure Hypoalbuminemia COPD Anemia Hypertension Esophageal varices History of uterine cancer PLAN Blood pressure is well controlled, discontinue amlodipine completely due to lower extremity edema. Transition to oral diuretics, 40 mg in the morning and 20 at bedtime. Recommend daily Ensure for protein calorie malnutrition as well as dietary consultation. Further recommendations to follow based on clinical course. Nurse Practitioner note has been reviewed, I agree with a documented findings and plan of care. Patient was seen and examined. Objective - Vital Signs Vital signs: Vital Signs Temp 98.0 F 08/12/19 05:35 Pulse 86 08/12/19 08:31 Resp 20 08/12/19 05:35 BP 113/52 08/12/19 05:35 Pulse Ox 93 L 05/13/20 05:35 Intake & Output 08/11/19 08/12/19 08/12/19 18:59 06:59 18:59 Intake Total 140 500 Output Total 500 300 400 Balance -360 200 -400 Weight 79.3 kg 87.09 kg Intake: Oral 140 500 Output: Urine 500 300 400 - Labs CBC & Chem 7: 08/12/19 06:32 08/12/19 06:32 Labs: Abnormal Lab Results - Last 24 Hours (Table) 08/11/19 08/11/19 08/11/19 Range/Units 06:07 11:04 16:59 RBC (3.80-5.40) m/uL Hgb (11.4-16.0) gm/dL Hct (34.0-46.0) % MCV (80.0-100.0) fL MCHC (31.0-37.0) g/dL RDW (11.5-15.5) % Plt Count (150-450) k/uL Neutrophils # (Manual) (1.3-7.7) k/uL Lymphocytes # (Manual) (1.0-4.8) k/uL Macrocytosis Chloride (98-107) mmol/L BUN (7-17) mg/dL Creatinine (0.52-1.04) mg/dL Glucose (74-99) mg/dL POC Glucose (mg/dL) 186 H 206 H (75-99) mg/dL Calcium (8.4-10.2) mg/dL Magnesium 1.5 L (1.6-2.3) mg/dL Albumin (3.5-5.0) g/dL 08/11/19 08/12/19 08/12/19 Range/Units 20:03 06:32 06:32 RBC 2.08 L (3.80-5.40) m/uL Hgb 6.4 L* (11.4-16.0) gm/dL Hct 21.7 L (34.0-46.0) % MCV 104.4 H (80.0-100.0) fL MCHC 29.6 L (31.0-37.0) g/dL RDW 18.4 H (11.5-15.5) % Plt Count 77 L (150-450) k/uL Neutrophils # (Manual) 9.60 H (1.3-7.7) k/uL Lymphocytes # (Manual) 0.20 L (1.0-4.8) k/uL Macrocytosis Marked A Chloride 109 H (98-107) mmol/L BUN 28 H (7-17) mg/dL Creatinine 1.55 H (0.52-1.04) mg/dL Glucose 143 H (74-99) mg/dL POC Glucose (mg/dL) 193 H (75-99) mg/dL Calcium 7.7 L (8.4-10.2) mg/dL Magnesium (1.6-2.3) mg/dL Albumin 2.4 L (3.5-5.0) g/dL 08/12/19 Range/Units 07:02 RBC (3.80-5.40) m/uL Hgb (11.4-16.0) gm/dL Hct (34.0-46.0) % MCV (80.0-100.0) fL MCHC (31.0-37.0) g/dL RDW (11.5-15.5) % Plt Count (150-450) k/uL Neutrophils # (Manual) (1.3-7.7) k/uL Lymphocytes # (Manual) (1.0-4.8) k/uL Macrocytosis Chloride (98-107) mmol/L BUN (7-17) mg/dL Creatinine (0.52-1.04) mg/dL Glucose (74-99) mg/dL POC Glucose (mg/dL) 146 H (75-99) mg/dL Calcium (8.4-10.2) mg/dL Magnesium (1.6-2.3) mg/dL Albumin (3.5-5.0) g/dL
--- NOTE | 2019-08-12 11:32 | P.PN ---
Subjective Progress Note Date: 08/12/19 This is a 74-year-old female admitted with acute CHF exacerbation, anemia, esophageal varices, acute renal failure, and multiple other medical issues. Renal function mildly worsened this morning with creatinine up to 1.55. Hemoglobin 6.4, asymptomatic. No hemoptysis, no hematochezia, no melena .VSS. Diuresing well on Lasix IV push with 24-hour I&O reflecting a negative fluid balance. Albumin 2.4. Denies chest pain, palpitations or shortness of breath. Evaluated by both cardiology and GI with recommendations noted and appreciated. Objective - Vital Signs Vital signs: Vital Signs Temp 98.0 F 08/12/19 05:35 Pulse 79 08/12/19 10:50 Resp 20 08/12/19 05:35 BP 113/52 08/12/19 05:35 Pulse Ox 94 L 08/12/19 10:50 Intake & Output 08/11/19 08/12/19 08/12/19 18:59 06:59 18:59 Intake Total 140 500 Output Total 500 300 700 Balance -360 200 -700 Weight 79.3 kg 87.09 kg Intake: Oral 140 500 Output: Urine 500 300 700 - Exam PHYSICAL EXAM: VITAL SIGNS: As above GENERAL: Sitting up in bed, no acute distress HEENT: Conjunctivae normal. eyes normal. Oral mucosa moist NECK: No JVD. No thyroid enlargement. No LNs CARDIOVASCULAR: S1, S2 regular.Systolic murmur RESPIRATION: Breath sounds diminished in the bases. No rhonchi or crackles. No expiratory wheezing. ABDOMEN: Soft, nontender . No guarding. no masses palpable. No ascites, No hepatosplenomegaly.Bowel sounds heard. LEGS: Decreasing Bilateral lower extremity trace edema with no clubbing, no cyanosis. PSYCHIATRY: Alert and oriented X3, mood and affect normal. NERVOUS SYSTEM: Cranial N 2-12 grossly normal. Moves all 4 limbs. No focal deficits. Strength and sensation grossly intact. Skin: no lesions, no rash - Labs CBC & Chem 7: 08/12/19 06:32 08/12/19 06:32 Labs: Abnormal Lab Results - Last 24 Hours (Table) 08/11/19 08/11/19 08/11/19 Range/Units 06:07 11:04 16:59 RBC (3.80-5.40) m/uL Hgb (11.4-16.0) gm/dL Hct (34.0-46.0) % MCV (80.0-100.0) fL MCHC (31.0-37.0) g/dL RDW (11.5-15.5) % Plt Count (150-450) k/uL Neutrophils # (Manual) (1.3-7.7) k/uL Lymphocytes # (Manual) (1.0-4.8) k/uL Macrocytosis Chloride (98-107) mmol/L BUN (7-17) mg/dL Creatinine (0.52-1.04) mg/dL Glucose (74-99) mg/dL POC Glucose (mg/dL) 186 H 206 H (75-99) mg/dL Calcium (8.4-10.2) mg/dL Magnesium 1.5 L (1.6-2.3) mg/dL Albumin (3.5-5.0) g/dL 08/11/19 08/12/19 08/12/19 Range/Units 20:03 06:32 06:32 RBC 2.08 L (3.80-5.40) m/uL Hgb 6.4 L* (11.4-16.0) gm/dL Hct 21.7 L (34.0-46.0) % MCV 104.4 H (80.0-100.0) fL MCHC 29.6 L (31.0-37.0) g/dL RDW 18.4 H (11.5-15.5) % Plt Count 77 L (150-450) k/uL Neutrophils # (Manual) 9.60 H (1.3-7.7) k/uL Lymphocytes # (Manual) 0.20 L (1.0-4.8) k/uL Macrocytosis Marked A Chloride 109 H (98-107) mmol/L BUN 28 H (7-17) mg/dL Creatinine 1.55 H (0.52-1.04) mg/dL Glucose 143 H (74-99) mg/dL POC Glucose (mg/dL) 193 H (75-99) mg/dL Calcium 7.7 L (8.4-10.2) mg/dL Magnesium (1.6-2.3) mg/dL Albumin 2.4 L (3.5-5.0) g/dL 08/12/19 Range/Units 07:02 RBC (3.80-5.40) m/uL Hgb (11.4-16.0) gm/dL Hct (34.0-46.0) % MCV (80.0-100.0) fL MCHC (31.0-37.0) g/dL RDW (11.5-15.5) % Plt Count (150-450) k/uL Neutrophils # (Manual) (1.3-7.7) k/uL Lymphocytes # (Manual) (1.0-4.8) k/uL Macrocytosis Chloride (98-107) mmol/L BUN (7-17) mg/dL Creatinine (0.52-1.04) mg/dL Glucose (74-99) mg/dL POC Glucose (mg/dL) 146 H (75-99) mg/dL Calcium (8.4-10.2) mg/dL Magnesium (1.6-2.3) mg/dL Albumin (3.5-5.0) g/dL Assessment and Plan Assessment: Acute on chronic CHF exacerbation, diastolic dysfunction Acute on chronic severe anemia secondary to esophageal varices, packed RBCs ordered Recent EGD with banding 2 weeks ago. Thrombocytopenia Acute renal failure Hypoalbuminemia Gastroesophageal reflux disease COPD Restless leg syndrome Hypothyroidism Hypoalbuminemia with Protein calorie malnutrition, History of uterine cancer Plan: Continue on current medication regime ,monitoring and symptomatic treatment. One unit of packed RBCs ordered for hemoglobin of 6.4. Evaluated by GI with No EGD recommended at this time-2 weeks ago patient underwent EGD with banding. Hematology consulted. Diuretics as per cardiology. Protein supplements ordered between meals. The impression and plan of care has been dictated as directed. : I performed a history and examination of this patient, discussed the same with the dictator. I agree with the dictator's note ,documented as a scribe. Any a dditional findings or plans will be noted.
[2019-08-12 11:36] LABS: Glucose,Whole Blood 206 mg/dL (75-99)
[2019-08-12] MEDS: SODIUM CHLORIDE 0.9% 1,000 ML IV SCH (13:35)
--- NOTE | 2019-08-12 14:01 | PN ---
PROGRESS NOTE DATE OF DICTATION: 08/12/2019 Patient is a 74-year-old pleasant white female admitted to hospital with exacerbation of COPD and severe symptomatic anemia and today she dropped her hemoglobin to 6.4 g/dL. She received one unit of blood transfusion. She once again continues to deny any abdominal pain. No nausea, vomiting. No rectal bleeding or melena. As mentioned on the consultation note yesterday, she did have an upper endoscopy in July of 2019 and underwent esophageal variceal ligation and was also noted to have portal hypertensive gastropathy. Last colonoscopy 2 years ago was unremarkable. She denies any new symptoms. PHYSICAL EXAMINATION: Appears comfortable, in no apparent distress. VITAL SIGNS: Stable. Blood pressure is 129/60, pulse rate is 62, temperature 97.8. HEENT: Examination unremarkable, conjunctivae are pale, sclerae nonicteric, oral cavity no lesions. NECK: No JVD or lymph node enlargement. CHEST: Clear to auscultation. HEART: Regular rate and rhythm. ABDOMEN: Soft. Bowel sounds are positive. No organomegaly. EXTREMITIES: No pedal edema. SKIN: No rashes. NEURO: She is alert and oriented x3. No focal deficits. LABS: From today WBC 9.8, hemoglobin 6.4, platelets 77,000. Rest of the labs are within normal limits. AST and ALT are normal. T bilirubin, alkaline phosphatase is normal. BUN is 28, creatinine 1.55. IMPRESSION: 1. Alcoholic cirrhosis of the liver, which appears to be well compensated, diagnosed 2 years ago. 2. Severe symptomatic anemia but clinically no evidence of active bleeding, status post EGD July 22, [address] Monroe and was noted to have esophageal varices and underwent variceal ligation as well as portal hypertensive gastropathy. The anemia appears to be multifactorial in etiology, partly related to anemia of chronic kidney disease, some cirrhosis of the liver/portal hypertension and hypersplenism. 3. Her last colonoscopy 2 years ago was unremarkable. 4. Exacerbation of chronic obstructive pulmonary disease. Presently on IV Solu-Medrol 40 mg q.8 hours and home O2 as well as albuterol every 6 hours. 5. Hepatic encephalopathy, well controlled. RECOMMENDATIONS: 1. No plans on any endoscopy intervention at the present time. 2. Continue to monitor CBC on a daily basis. 3. Agree with one unit of blood transfusion. 4. Continue with iron supplements. 5. Patient was advised to follow up in office 2 weeks following discharge from the hospital. Thank you for this consultation. MMODL / IJN: [id number] /
--- NOTE | 2019-08-12 14:23 | CDI ---
Documentation Clarification Form Date: 08/12/2019 01:56:11 PM From: Giselle Gonzalez RN CCDS Admit Date: 08/10/2019 10:11:00 AM Patient Name: Lexii Vale Visit Number: [id number] Discharge Date: ATTENTION: The Clinical Documentation Specialists (CDI) and [facility] Coding Staff appreciate your assistance in clarifying documentation. Please respond to the clarification below the line at the bottom and electronically sign. The CDI & [facility] Coding staff will review the response and follow-up if needed. Please note: Queries are made part of the Legal Health Record. If you have any questions, please contact the author of this message via ITS. Dr. Bebeto Davila Protein Calorie Malnutrition has been documented in your progress note 08/11. History/Risk Factors: Clinical Indicators: Labs 08/09: Hgb 7.2, Hct 24.3, Potassium 3.9, Cr 1.17, Total protein 7.6, Albumin 2.6, BNP 1820, ALK Phos 108, AST 26, ALT 9, Current BMI: 32.0kg/m Feeding assessment from Nursing notes 08/10 -08/11 Independent 75% - 100% of heart healthy meal consumed for break, lunch and dinner Fluid accumulation: 08/10 per H&P "Severe extremity edema both legs partially due to we think low protein levels as well as possible liver failure and some mild congestive heart failure vs COPD. Decreased hand ui developer strength: per Nursing assessment 08/09 "Bilateral hand grasp equal weak." Treatment: Dietary Consult: Not available at this time. Supplements: Ensure with breakfast. Lab monitoring: Daily Chem panel and Hematology In your professional opinion, can you please clarify if these findings signify one of the following conditions? Mild Protein-Calorie Malnutrition Moderate Protein-Calorie Malnutrition Severe Protein-Calorie Malnutrition Other condition, please specify Unable to determine (Last Revision: September 2018) MTDD
[2019-08-12 14:36] VITALS: BMI 31.9
[2019-08-12 15:21] LABS: Reticulocyte % 2.8 % (0.5-2.0)
--- NOTE | 2019-08-12 15:35 | P.CONS ---
History of Present Illness - Reason for Consult Consult date: 08/12/19 Anemia Requesting physician: Lula Vasquez - Chief Complaint Swelling in the legs - History of Present Illness Please see consult dated 07/22/19. Patient is admitted for peripheral edema and heart failure. On admission, Hemoglobin 6.4, platelet count 77,000. Patient was still pending her appointment made at her last hospitalization, this is scheduled for 08/18. At that time she was going to be reevaluated for the interventions at her prior hospitalization. Patient is receiving a unit of blood, parenteral iron, denies any fevers, recent illnesses, nausea, vomiting, hematemesis, hemoptysis, hematuria, hematochezia or melena. She states she has felt pretty good other than some fatigue. Review of Systems 14 point review of systems is negative except as stated in HPI Past Medical History Past Medical History: Cancer, Heart Failure, COPD, CVA/TIA, GERD/Reflux, GI Bleed, Hyperlipidemia, Hypertension, Osteoarthritis (OA) Additional Past Medical History / Comment(s): hx. uterine cancer, chemo 6 years ago, TIA several yrs. ago-forgetful, neuropathy feet & legs & hands, ANEMIA History of Any Multi-Drug Resistant Organisms: None Reported Past Surgical History: Hysterectomy, Tonsillectomy Additional Past Surgical History / Comment(s): COLONOSCOPY. EGD. BILAT CATARACTS REMOVED Past Anesthesia/Blood Transfusion Reactions: No Reported Reaction Past Psychological History: Anxiety, Depression Smoking Status: Current every day smoker Past Alcohol Use History: None Reported Additional Past Alcohol Use History / Comment(s): SMOKES 1PPD SINCE AGE 12 Past Drug Use History: None Reported - Past Family History Mother Family Medical History: Cancer Father History Unknown: Yes Family Medical History: Cancer Brother(s) Family Medical History: Cancer Medications and Allergies Home Medications Medication Instructions Recorded Confirmed Type Ferrous Sulfate [Feosol] 325 mg PO BID 10/29/16 08/10/19 History Donepezil [Aricept] 10 mg PO HS 11/07/17 08/10/19 History Levothyroxine Sodium [Synthroid] 25 mcg PO DAILY 11/07/17 08/10/19 History Omeprazole [PriLOSEC] 40 mg PO DAILY 11/07/17 08/10/19 History Cetirizine HCl [Zyrtec] 10 mg PO DAILY 01/14/19 08/10/19 History Escitalopram [Lexapro] 10 mg PO DAILY 01/14/19 08/10/19 History Gabapentin [Neurontin] 800 mg PO TID 01/14/19 08/10/19 History Memantine [Namenda] 10 mg PO BID 01/14/19 08/10/19 History Lisinopril [Zestril] 10 mg PO DAILY #30 tab 01/15/19 08/10/19 Rx amLODIPine [Norvasc] 10 mg PO DAILY #30 tab 01/15/19 08/10/19 Rx Acetaminophen Tab [Tylenol] 650 mg PO Q6H PRN 05/01/19 08/10/19 History Ipratropium-Albuterol Nebulize 3 ml INHALATION RT-QID PRN 05/01/19 08/10/19 History [Duoneb 0.5 mg-3 mg/3 ml Soln] Baclofen 5 mg PO TID 06/28/19 08/10/19 History Promethazine 6.25MG/5Ml [Phenergan 6.25 mg PO HS PRN 06/28/19 08/10/19 History Syrup] SILVER sulfADIAZINE Cream 1 applic TOPICAL BID 06/28/19 08/10/19 History [Silvadene 1% Cream] rOPINIRole HCL [Requip] 0.25 mg PO HS 06/28/19 08/10/19 History Propranolol [Inderal] 10 mg PO TID #90 tab 06/30/19 08/10/19 Rx Furosemide [Lasix] 20 mg PO DAILY 07/21/19 08/10/19 History traMADol HCl [Ultram] 50 mg PO BID PRN 07/21/19 08/10/19 History Loperamide [Imodium] 2 mg PO QAM PRN 08/10/19 08/10/19 History Allergies Allergy/AdvReac Type Severity Reaction Status Date / Time No Known Allergies Allergy Verified 08/10/19 12:57 Physical Exam Vitals: Vital Signs Temp Pulse Pulse Pulse Pulse Resp BP 08/12/19 12:42 70 08/12/19 12:32 70 08/12/19 11:30 97.8 F 62 20 129/60 08/12/19 10:50 79 80 08/12/19 08:31 86 08/12/19 08:21 80 08/12/19 05:35 98.0 F 70 20 113/52 08/11/19 23:00 97.6 F 60 16 122/60 08/11/19 20:59 82 08/11/19 20:52 08/11/19 20:49 97.6 F 60 18 122/60 08/11/19 20:48 86 Pulse Ox Pulse Ox Pulse Ox 08/12/19 12:42 08/12/19 12:32 08/12/19 11:30 97 08/12/19 10:50 94 L 90 L 08/12/19 08:31 08/12/19 08:21 08/12/19 05:35 93 L 08/11/19 23:00 95 08/11/19 20:59 08/11/19 20:52 95 08/11/19 20:49 95 08/11/19 20:48 Intake and Output 08/11/19 08/12/19 08/12/19 22:59 06:59 14:59 Intake Total 500 Output Total 300 700 Balance 200 -700 Intake: Oral 500 Output: Urine 300 700 Other: Voiding Method Toilet Diaper Weight 79.3 kg 87.09 kg - Constitutional General appearance: average body habitus, cooperative, no acute distress - EENT Eyes: anicteric sclerae, EOMI ENT: hearing grossly normal, normal oropharynx - Neck Neck: no lymphadenopathy - Respiratory Respiratory: bilateral: CTA - Cardiovascular Rhythm: regular Heart sounds: normal: S1, S2 Abnormal Heart Sounds: no systolic murmur, no diastolic murmur, no rub, no S3 Gallop, no S4 Gallop, no click, no other leg Peripheral Edema: bilateral: 2+ - Gastrointestinal General gastrointestinal: no absent bowel sounds, no decreased bowel sounds, no distended, no hepatomegaly, no hyperactive bowel sounds, normal bowel sounds, organomegaly, no rigid, no scaphoid, soft, no splenomegaly, no tenderness, no umbilical hernia, no ventral hernia - Integumentary Integumentary: normal - Neurologic Neurologic: CNII-XII intact - Musculoskeletal Musculoskeletal: strength equal bilaterally - Psychiatric Psychiatric: A&O x's 3, appropriate affect, intact judgment & insight Results CBC & Chem 7: 08/12/19 06:32 08/12/19 06:32 Labs: Abnormal Lab Results - Last 24 Hours (Table) 08/11/19 08/11/19 08/12/19 Range/Units 16:59 20:03 06:32 RBC (3.80-5.40) m/uL Hgb (11.4-16.0) gm/dL Hct (34.0-46.0) % MCV (80.0-100.0) fL MCHC (31.0-37.0) g/dL RDW (11.5-15.5) % Plt Count (150-450) k/uL Neutrophils # (Manual) (1.3-7.7) k/uL Lymphocytes # (Manual) (1.0-4.8) k/uL Macrocytosis Chloride 109 H (98-107) mmol/L BUN 28 H (7-17) mg/dL Creatinine 1.55 H (0.52-1.04) mg/dL Glucose 143 H (74-99) mg/dL POC Glucose (mg/dL) 206 H 193 H (75-99) mg/dL Calcium 7.7 L (8.4-10.2) mg/dL Albumin 2.4 L (3.5-5.0) g/dL Crossmatch 08/12/19 08/12/19 08/12/19 Range/Units 06:32 07:02 08:58 RBC 2.08 L (3.80-5.40) m/uL Hgb 6.4 L* (11.4-16.0) gm/dL Hct 21.7 L (34.0-46.0) % MCV 104.4 H (80.0-100.0) fL MCHC 29.6 L (31.0-37.0) g/dL RDW 18.4 H (11.5-15.5) % Plt Count 77 L (150-450) k/uL Neutrophils # (Manual) 9.60 H (1.3-7.7) k/uL Lymphocytes # (Manual) 0.20 L (1.0-4.8) k/uL Macrocytosis Marked A Chloride (98-107) mmol/L BUN (7-17) mg/dL Creatinine (0.52-1.04) mg/dL Glucose (74-99) mg/dL POC Glucose (mg/dL) 146 H (75-99) mg/dL Calcium (8.4-10.2) mg/dL Albumin (3.5-5.0) g/dL Crossmatch See Detail 08/12/19 Range/Units 11:35 RBC (3.80-5.40) m/uL Hgb (11.4-16.0) gm/dL Hct (34.0-46.0) % MCV (80.0-100.0) fL MCHC (31.0-37.0) g/dL RDW (11.5-15.5) % Plt Count (150-450) k/uL Neutrophils # (Manual) (1.3-7.7) k/uL Lymphocytes # (Manual) (1.0-4.8) k/uL Macrocytosis Chloride (98-107) mmol/L BUN (7-17) mg/dL Creatinine (0.52-1.04) mg/dL Glucose (74-99) mg/dL POC Glucose (mg/dL) 206 H (75-99) mg/dL Calcium (8.4-10.2) mg/dL Albumin (3.5-5.0) g/dL Crossmatch Assessment and Plan (1) Symptomatic anemia Narrative/Plan: Acute on chronic. Current Visit: Yes Status: Acute Priority: High Code(s): D64.9 - ANEMIA, UNSPECIFIED SNOMED Code(s): 543042554 (2) Thrombocytopenia Current Visit: Yes Status: Acute Priority: Medium Code(s): D69.6 - THROMBOCYTOPENIA, UNSPECIFIED SNOMED Code(s): 229633270 (3) Esophageal varices determined by endoscopy Current Visit: No Status: Chronic Priority: Medium Code(s): I85.00 - ESOPHAGEAL VARICES WITHOUT BLEEDING SNOMED Code(s): 48353007 (4) Liver cirrhosis Current Visit: No Status: Chronic Priority: Medium Code(s): K74.60 - UNSPECIFIED CIRRHOSIS OF LIVER SNOMED Code(s): 02992539 Plan: Multiple labs have been ordered to evaluate macrocytic anemia as well as thrombocytopenia. Patient does have history of iron deficiency, kidney dysfunction noted. Liver disease which could be causing a degree of splenic sequestration and platelet destruction, also liver disease can contribute to altered thrombopoietin. Gastroenterology as consult the patient has a known history of esophageal varices from cirrhotic liver disease, recent endoscopies, none plan for this time. Patient has reported no evidence of a recent acute bleed. Pending lab results. We'll move patient's follow-up about 1 month.
[2019-08-12 16:55] LABS: Glucose,Whole Blood 121 mg/dL (75-99)
[2019-08-12 19:33] LABS: Protein, Total 6.4 g/dL (6.2-8.2)
[2019-08-12 20:03] LABS: Ferritin 273.5 ng/mL (10.0-291.0)
[2019-08-12 20:18] LABS: Glucose,Whole Blood 214 mg/dL (75-99)
[2019-08-12 20:37] LABS: % Iron Saturation 72.35 (12.00-45.00); Iron 157 ug/dL (50-170); Rheumatoid Factor, Qnt <4 IU/mL (0-13); Total Iron Binding Capacity 217 ug/dL (228-460)
[2019-08-12] MEDS ORDERED: FUROSEMIDE 20 MG TAB PO SCH (21:00)
[2019-08-12] MEDS: DONEPEZIL 10 MG TAB PO SCH (21:46)
[2019-08-12] MEDS: MEMANTINE 5 MG TAB PO SCH (21:48)
[2019-08-13] MEDS: LEVOTHYROXINE 25 MCG TAB PO SCH (05:54)
[2019-08-13] MEDS: PANTOPRAZOLE 40 MG TABLET PO SCH (05:54)
[2019-08-13 07:08] LABS: Glucose,Whole Blood 182 mg/dL (75-99)
[2019-08-13] MEDS: NICOTINE 14MG/24HR PATCH TRANSDERM SCH (07:39)
[2019-08-13] MEDS: PROPRANOLOL 10 MG TAB PO SCH ×2 (07:39→17:06)
[2019-08-13] MEDS: LORATADINE 10 MG TAB PO SCH (07:40)
[2019-08-13] MEDS: MEMANTINE 5 MG TAB PO SCH (07:40)
[2019-08-13] MEDS: GABAPENTIN 400 MG CAP PO SCH ×2 (07:41→17:06)
[2019-08-13] MEDS: LISINOPRIL 20 MG TAB PO SCH (07:41)
[2019-08-13] MEDS: methylPREDNISolone SOD SUCCI 40 MG/ML 1 ML VIAL IV SCH ×2 (07:41→17:07)
[2019-08-13] MEDS: FERROUS SULFATE 325 MG TAB PO SCH (07:41)
[2019-08-13] MEDS: BACLOFEN 10 MG TAB PO SCH ×2 (07:41→17:06)
[2019-08-13] MEDS: ESCITALOPRAM 10 MG TAB PO SCH (07:42)
[2019-08-13] MEDS: INSULIN ASPART (NovoLOG) 100 UNIT/ML VIAL SQ SCH ×2 (07:42→13:09)
[2019-08-13 08:47] LABS: Anisocytosis Slight; HCT 27.7 % (34.0-46.0); Hypochromasia Marked; MCHC 29.1 g/dL (31.0-37.0); MCV 103.1 fL (80.0-100.0); Macrocytosis Moderate; Mean Platelet Volume 12.2; Poikilocytosis Slight; RBC 2.69 m/uL (3.80-5.40); RDW 19.1 % (11.5-15.5); WBC 13.6 k/uL (3.8-10.6)
[2019-08-13] MEDS: SYMBICORT 160-4.5 MCG INHALER INHALATION SCH (08:50)
[2019-08-13] MEDS: IPRATROPIUM-ALBUTEROL 3 ML NEB INHALATION SCH ×3 (08:50→16:46)
[2019-08-13 08:53] LABS: HGB 8.1 gm/dL (11.4-16.0); Platelet Count 91 k/uL (150-450)
[2019-08-13] MEDS ORDERED: FUROSEMIDE 40 MG TAB PO SCH (09:00)
[2019-08-13 09:11] LABS: Calcium 8.3 mg/dL (8.4-10.2); Potassium 4.2 mmol/L (3.5-5.1)
--- NOTE | 2019-08-13 10:43 | P.PN ---
Subjective HISTORY OF PRESENTING ILLNESS This is a pleasant 74-year-old female past medical history significant for hypertension, COPD, chronic nicotine dependence, anemia, esophageal varices, dyslipidemia and uterine cancer 6 yrs ago s/p chemotherapy and hysterectomy. She denies prior history or diagnosis of coronary artery disease or heart failure. We have been asked to see in consultation for heart failure. She does not follow regularly with a unleavened dough mixer. She is seen and examined today sitting up eating breakfast in no acute distress. She states overall she is feeling much better since admission. She was transitioned to PO diuretics yesterday. Blood pressure this morning 119/70 heart rate 64 afebrile and maintaining low normal saturation on room air. Laboratory data reviewed, WBC 13.6, hgb 8.1, sodium 141, potassium 4.2, creatinine 1.58. Currently maintained on lasix 40 mg in the morning and 20 mg in the evening, propanolol 10mg TID and lisinopril 20 mg daily. PHYSICAL EXAMINATION CONSTITUTIONAL: No apparent distress. HEENT: Head is normocephalic. Pupils are equal, round. Sclerae anicteric. Mucous membranes of the mouth are moist. No JVD. No carotid bruit. CHEST EXAMINATION: No rales, wheezes or rhonchi. No chest wall tenderness is noted on palpation or with deep breathing. HEART EXAMINATION: Regular rate and rhythm. S1, S2 heard. Systolic ejection murmur at the left sternal border, no gallops or rub. EXTREMITIES: 2+ peripheral pulses, trace bilateral lower extremity pitting edema up to the knee, significant improvement from yesterday's exam and no calf tenderness. ASSESSMENT Acute onset of diastolic heart failure Hypoalbuminemia COPD Anemia Hypertension Esophageal varices History of uterine cancer PLAN Stable on current medical regimen. Follow up in the office with Dr. Porter in 2 weeks. Nurse Practitioner note has been reviewed, I agree with a documented findings and plan of care. Patient was seen and examined. Objective - Vital Signs Vital signs: Vital Signs Temp 98.3 F 08/13/19 05:00 Pulse 64 08/13/19 09:02 Resp 18 08/13/19 05:00 BP 119/70 08/13/19 05:00 Pulse Ox 90 L 08/13/19 08:51 Intake & Output 08/12/19 08/13/19 08/13/19 18:59 06:59 18:59 Intake Total 310 240 Output Total 700 Balance -390 240 Weight 87.09 kg 88.451 kg Intake: Oral 240 Blood Product 310 Rc Pheresis 2 As3 Unit 310 [id number] Output: Urine 700 Other: Voiding Method Toilet Toilet Toilet Diaper Diaper Diaper Incontinent Incontinent Incontinent - Labs CBC & Chem 7: 08/13/19 08:27 08/13/19 08:27 Labs: Abnormal Lab Results - Last 24 Hours (Table) 08/12/19 08/12/19 08/12/19 Range/Units 06:02 06:02 08:58 WBC (3.8-10.6) k/uL RBC (3.80-5.40) m/uL Hgb (11.4-16.0) gm/dL Hct (34.0-46.0) % MCV (80.0-100.0) fL MCHC (31.0-37.0) g/dL RDW (11.5-15.5) % Retic Count 2.8 H (0.5-2.0) % Chloride (98-107) mmol/L BUN (7-17) mg/dL Creatinine (0.52-1.04) mg/dL Glucose (74-99) mg/dL POC Glucose (mg/dL) (75-99) mg/dL Calcium (8.4-10.2) mg/dL TIBC 217 L (228-460) ug/dL % Saturation 72.35 H (12.00-45.00) Crossmatch See Detail 08/12/19 08/12/19 08/12/19 Range/Units 11:35 16:52 20:08 WBC (3.8-10.6) k/uL RBC (3.80-5.40) m/uL Hgb (11.4-16.0) gm/dL Hct (34.0-46.0) % MCV (80.0-100.0) fL MCHC (31.0-37.0) g/dL RDW (11.5-15.5) % Retic Count (0.5-2.0) % Chloride (98-107) mmol/L BUN (7-17) mg/dL Creatinine (0.52-1.04) mg/dL Glucose (74-99) mg/dL POC Glucose (mg/dL) 206 H 121 H 214 H (75-99) mg/dL Calcium (8.4-10.2) mg/dL TIBC (228-460) ug/dL % Saturation (12.00-45.00) Crossmatch 08/13/19 08/13/19 08/13/19 Range/Units 07:06 08:27 08:27 WBC 13.6 H (3.8-10.6) k/uL RBC 2.69 L (3.80-5.40) m/uL Hgb 8.1 L D (11.4-16.0) gm/dL Hct 27.7 L (34.0-46.0) % MCV 103.1 H (80.0-100.0) fL MCHC 29.1 L (31.0-37.0) g/dL RDW 19.1 H (11.5-15.5) % Retic Count (0.5-2.0) % Chloride 108 H (98-107) mmol/L BUN 39 H (7-17) mg/dL Creatinine 1.58 H (0.52-1.04) mg/dL Glucose 143 H (74-99) mg/dL POC Glucose (mg/dL) 182 H (75-99) mg/dL Calcium 8.3 L (8.4-10.2) mg/dL TIBC (228-460) ug/dL % Saturation (12.00-45.00) Crossmatch
[2019-08-13 11:02] LABS: Lymphocytes # (M) 0.14 k/uL (1.0-4.8); Monocytes # (M) 0.14 k/uL (0-1.0); Neutrophils # (M) 13.33 k/uL (1.3-7.7); Neutrophils % (M) 98 %; Nucleated Red Blood Cells 0 /100 WBC (0-0); Total Cells Counted 100
[2019-08-13 11:03] LABS: Large Platelets Present; Rouleaux Present; Target Cells Present
[2019-08-13 11:42] LABS: Glucose,Whole Blood 200 mg/dL (75-99)
--- NOTE | 2019-08-13 12:56 | P.DS ---
Providers Date of admission: 08/10/19 10:11 Expected date of discharge: 08/13/19 Attending physician: Bebeto Davila Consults: 08/10/19 14:44 Consult Physician Routine Consulting Provider: Anthony Cruz Consult Reason/Comments: chf Do you want consulting provider notified?: Yes 08/10/19 18:15 Consult Physician Routine Consulting Provider: Lizbeth Calloway Consult Reason/Comments: anemia/esophageal varices Do you want consulting provider notified?: Yes 08/12/19 11:28 Consult Physician Routine Consulting Provider: Fly Crane Consult Reason/Comments: anemia, thrombocytopenia Do you want consulting provider notified?: Yes Primary care physician: [facility] Course: Final Diagnoses: Acute on chronic CHF exacerbation, diastolic dysfunction Acute on chronic severe anemia secondary to esophageal varices, packed RBCs ordered Recent EGD with banding 2 weeks ago. Thrombocytopenia Acute renal failure Hypoalbuminemia Gastroesophageal reflux disease COPD Restless leg syndrome Hypothyroidism Hypoalbuminemia with Protein calorie malnutrition, History of uterine cancer Hospital course:This is a 74-year-old female admitted with acute CHF exacerbation, anemia, esophageal varices, acute renal failure, and multiple other medical issues. Renal function mildly worsened this morning with creatinine up to 1.55. Hemoglobin 6.4, asymptomatic. No hemoptysis, no he matochezia, no melena .VSS. Diuresing well on Lasix IV push with 24-hour I&O reflecting a negative fluid balance. Albumin 2.4. Denies chest pain, palpitations or shortness of breath. Evaluated by both cardiology and GI with recommendations noted and appreciated. Evaluated/ Tx by cardiology, GI, hematology. No EGD recommended at this time. Significant clinical improvement. Cleared by all consults for discharge. Patient will begin weekly IV Venofer injections, to be arranged by PCP. Patient is being discharged home in a stable condition with guarded prognosis. The impression and plan of care has been dictated as directed. : I performed a history and examination of this patient, discussed the same with the dictator. I agree with the dictator's note ,documented as a scribe. Any additional findings or plans will be noted. Patient Condition at Discharge: Stable Plan - Discharge Summary Discharge Rx Participant: No New Discharge Prescriptions: New Furosemide [Lasix] 40 mg PO DAILY #90 tab Lisinopril [Zestril] 20 mg PO DAILY #90 tab Nicotine 14Mg/24Hr Patch [Habitrol] 1 patch TRANSDERM DAILY #30 patch predniSONE 10 mg PO DIRECTED #30 tab Budesonide-Formot 160-4.5 Mcg [Symbicort 160-4.5 Mcg Inhaler] 2 puff INHALATION RT-BID #1 inh Potassium Chloride ER [K-Dur 20] 20 meq PO DAILY #30 tab Continue Ferrous Sulfate [Feosol] 325 mg PO BID Omeprazole [PriLOSEC] 40 mg PO DAILY Levothyroxine Sodium [Synthroid] 25 mcg PO DAILY Donepezil [Aricept] 10 mg PO HS Memantine [Namenda] 10 mg PO BID Escitalopram [Lexapro] 10 mg PO DAILY Cetirizine HCl [Zyrtec] 10 mg PO DAILY Gabapentin [Neurontin] 800 mg PO TID Acetaminophen Tab [Tylenol] 650 mg PO Q6H PRN PRN Reason: Pain Ipratropium-Albuterol Nebulize [Duoneb 0.5 mg-3 mg/3 ml Soln] 3 ml INHALATION RT-QID PRN PRN Reason: Shortness Of Breath rOPINIRole HCL [Requip] 0.25 mg PO HS Promethazine 6.25MG/5Ml [Phenergan Syrup] 6.25 mg PO HS PRN PRN Reason: Cough Baclofen 5 mg PO TID SILVER sulfADIAZINE Cream [Silvadene 1% Cream] 1 applic TOPICAL BID Propranolol [Inderal] 10 mg PO TID #90 tab traMADol HCl [Ultram] 50 mg PO BID PRN PRN Reason: Pain Loperamide [Imodium] 2 mg PO QAM PRN PRN Reason: Diarrhea Discontinued amLODIPine [Norvasc] 10 mg PO DAILY #30 tab Lisinopril [Zestril] 10 mg PO DAILY #30 tab Furosemide [Lasix] 20 mg PO DAILY Discharge Medication List Ferrous Sulfate [Feosol] 325 mg PO BID 10/29/16 [History] Donepezil [Aricept] 10 mg PO HS 11/07/17 [History] Levothyroxine Sodium [Synthroid] 25 mcg PO DAILY 11/07/17 [History] Omeprazole [PriLOSEC] 40 mg PO DAILY 11/07/17 [History] Cetirizine HCl [Zyrtec] 10 mg PO DAILY 01/14/19 [History] Escitalopram [Lexapro] 10 mg PO DAILY 01/14/19 [History] Gabapentin [Neurontin] 800 mg PO TID 01/14/19 [History] Memantine [Namenda] 10 mg PO BID 01/14/19 [History] Acetaminophen Tab [Tylenol] 650 mg PO Q6H PRN 05/01/19 [History] Ipratropium-Albuterol Nebulize [Duoneb 0.5 mg-3 mg/3 ml Soln] 3 ml INHALATION RT-QID PRN 05/01/19 [History] Baclofen 5 mg PO TID 06/28/19 [History] Promethazine 6.25MG/5Ml [Phenergan Syrup] 6.25 mg PO HS PRN 06/28/19 [History] SILVER sulfADIAZINE Cream [Silvadene 1% Cream] 1 applic TOPICAL BID 06/28/19 [History] rOPINIRole HCL [Requip] 0.25 mg PO HS 06/28/19 [History] Propranolol [Inderal] 10 mg PO TID #90 tab 06/30/19 [Rx] traMADol HCl [Ultram] 50 mg PO BID PRN 07/21/19 [History] Loperamide [Imodium] 2 mg PO QAM PRN 08/10/19 [History] Budesonide-Formot 160-4.5 Mcg [Symbicort 160-4.5 Mcg Inhaler] 2 puff INHALATION RT-BID #1 inh 08/13/19 [Rx] Furosemide [Lasix] 40 mg PO DAILY #90 tab 08/13/19 [Rx] Lisinopril [Zestril] 20 mg PO DAILY #90 tab 08/13/19 [Rx] Nicotine 14Mg/24Hr Patch [Habitrol] 1 patch TRANSDERM DAILY #30 patch 08/13/19 [Rx] Potassium Chloride ER [K-Dur 20] 20 meq PO DAILY #30 tab 08/13/19 [Rx] predniSONE 10 mg PO DIRECTED #30 tab 08/13/19 [Rx] Follow up Appointment(s)/Referral(s): Fly Crane MD [STAFF PHYSICIAN] - 4 Weeks Jalil Porter MD [STAFF PHYSICIAN] - 2 Weeks Lizbeth Calloway MD [STAFF PHYSICIAN] - 2 Weeks [facility], [NON-STAFF] - Ambulatory/Diagnostic Orders: Complete Blood Count w/diff [LAB.AMB] Time Frame: 3 Days, Location: None Selected Activity/Diet/Wound Care/Special Instructions: Pending hematology clearance, final dc rec.O2 sat on room air after ambulation pending. Weekly IV Venofer injections to be arranged per PCP'S office
[2019-08-13 13:00] VITALS: BP 133/58; PULSE 65; RESP 17; TEMP 97.8
[2019-08-13] MEDS: SODIUM CHLORIDE 0.9% 1,000 ML IV SCH (13:08)
--- NOTE | 2019-08-13 13:51 | P.PN ---
Subjective Progress Note Date: 08/13/19 Principal diagnosis: symptomatic anemia Pt feels good today, she has no c/o on a 10 point ROS, no bleeding or pain Objective - Vital Signs Vital signs: Vital Signs Temp 97.8 F 08/13/19 12:59 Pulse 65 08/13/19 12:59 Resp 17 08/13/19 12:59 BP 133/58 08/13/19 12:59 Pulse Ox 94 L 08/13/19 12:59 Intake & Output 08/12/19 08/13/19 08/13/19 18:59 06:59 18:59 Intake Total 310 240 Output Total 700 Balance -390 240 Weight 87.09 kg 88.451 kg Intake: Oral 240 Blood Product 310 Rc Pheresis 2 As3 Unit 310 [id number] Output: Urine 700 Other: Voiding Method Toilet Toilet Toilet Diaper Diaper Diaper Incontinent Incontinent Incontinent - Constitutional General appearance: Present: cooperative, no acute distress, obese - EENT Eyes: Present: anicteric sclerae, EOMI ENT: Present: hard of hearing - Respiratory Respiratory: bilateral: CTA - Cardiovascular Heart sounds: normal: S1, S2 - Peripheral edema leg Peripheral Edema: bilateral: None - Gastrointestinal General gastrointestinal: Present: normal bowel sounds, soft - Neurologic Neurologic: Present: CNII-XII intact - Musculoskeletal Musculoskeletal: Present: strength equal bilaterally - Psychiatric Psychiatric: Present: A&O x's 3, appropriate affect, intact judgment & insight - Labs CBC & Chem 7: 08/13/19 08:27 08/13/19 08:27 Labs: Abnormal Lab Results - Last 24 Hours (Table) 08/12/19 08/12/19 08/12/19 Range/Units 06:02 06:02 06:02 WBC (3.8-10.6) k/uL RBC (3.80-5.40) m/uL Hgb (11.4-16.0) gm/dL Hct (34.0-46.0) % MCV (80.0-100.0) fL MCHC (31.0-37.0) g/dL RDW (11.5-15.5) % Plt Count (150-450) k/uL Neutrophils # (Manual) (1.3-7.7) k/uL Lymphocytes # (Manual) (1.0-4.8) k/uL Retic Count 2.8 H (0.5-2.0) % Chloride (98-107) mmol/L BUN (7-17) mg/dL Creatinine (0.52-1.04) mg/dL Glucose (74-99) mg/dL POC Glucose (mg/dL) (75-99) mg/dL Calcium (8.4-10.2) mg/dL TIBC 217 L (228-460) ug/dL % Saturation 72.35 H (12.00-45.00) RBC Folate 1,712 H (280 - 791) ng/mL Free [place] LC, Quant (0.33-1.94) mg/dL Free Lambda LC, Quant (0.57-2.63) mg/dL Crossmatch 08/12/19 08/12/19 08/12/19 Range/Units 06:02 08:58 16:52 WBC (3.8-10.6) k/uL RBC (3.80-5.40) m/uL Hgb (11.4-16.0) gm/dL Hct (34.0-46.0) % MCV (80.0-100.0) fL MCHC (31.0-37.0) g/dL RDW (11.5-15.5) % Plt Count (150-450) k/uL Neutrophils # (Manual) (1.3-7.7) k/uL Lymphocytes # (Manual) (1.0-4.8) k/uL Retic Count (0.5-2.0) % Chloride (98-107) mmol/L BUN (7-17) mg/dL Creatinine (0.52-1.04) mg/dL Glucose (74-99) mg/dL POC Glucose (mg/dL) 121 H (75-99) mg/dL Calcium (8.4-10.2) mg/dL TIBC (228-460) ug/dL % Saturation (12.00-45.00) RBC Folate (280 - 791) ng/mL Free [place] LC, Quant 13.40 H (0.33-1.94) mg/dL Free Lambda LC, Quant 8.34 H (0.57-2.63) mg/dL Crossmatch See Detail 08/12/19 08/13/19 08/13/19 Range/Units 20:08 07:06 08:27 WBC 13.6 H (3.8-10.6) k/uL RBC 2.69 L (3.80-5.40) m/uL Hgb 8.1 L D (11.4-16.0) gm/dL Hct 27.7 L (34.0-46.0) % MCV 103.1 H (80.0-100.0) fL MCHC 29.1 L (31.0-37.0) g/dL RDW 19.1 H (11.5-15.5) % Plt Count 91 L (150-450) k/uL Neutrophils # (Manual) 13.33 H (1.3-7.7) k/uL Lymphocytes # (Manual) 0.14 L (1.0-4.8) k/uL Retic Count (0.5-2.0) % Chloride (98-107) mmol/L BUN (7-17) mg/dL Creatinine (0.52-1.04) mg/dL Glucose (74-99) mg/dL POC Glucose (mg/dL) 214 H 182 H (75-99) mg/dL Calcium (8.4-10.2) mg/dL TIBC (228-460) ug/dL % Saturation (12.00-45.00) RBC Folate (280 - 791) ng/mL Free [place] LC, Quant (0.33-1.94) mg/dL Free Lambda LC, Quant (0.57-2.63) mg/dL Crossmatch 08/13/19 08/13/19 Range/Units 08:27 11:40 WBC (3.8-10.6) k/uL RBC (3.80-5.40) m/uL Hgb (11.4-16.0) gm/dL Hct (34.0-46.0) % MCV (80.0-100.0) fL MCHC (31.0-37.0) g/dL RDW (11.5-15.5) % Plt Count (150-450) k/uL Neutrophils # (Manual) (1.3-7.7) k/uL Lymphocytes # (Manual) (1.0-4.8) k/uL Retic Count (0.5-2.0) % Chloride 108 H (98-107) mmol/L BUN 39 H (7-17) mg/dL Creatinine 1.58 H (0.52-1.04) mg/dL Glucose 143 H (74-99) mg/dL POC Glucose (mg/dL) 200 H (75-99) mg/dL Calcium 8.3 L (8.4-10.2) mg/dL TIBC (228-460) ug/dL % Saturation (12.00-45.00) RBC Folate (280 - 791) ng/mL Free [place] LC, Quant (0.33-1.94) mg/dL Free Lambda LC, Quant (0.57-2.63) mg/dL Crossmatch Assessment and Plan (1) Symptomatic anemia Narrative/Plan: Acute on chronic. Multifactoria, iron deficiency, renal disease. S/P transfusion and iron. F/U with Hematology 1 mo to check iron stores. F/U with PCP for CBC every 1-2 weeks until stable Current Visit: Yes Status: Acute Priority: High Code(s): D64.9 - ANEMIA, UNSPECIFIED SNOMED Code(s): 945901448 (2) Thrombocytopenia Narrative/Plan: Stable at this time, factor most likely causing the largest impact is liver di sease Current Visit: Yes Status: Acute Priority: Medium Code(s): D69.6 - THROMBOCYTOPENIA, UNSPECIFIED SNOMED Code(s): 613955887 (3) Esophageal varices determined by endoscopy Current Visit: No Status: Chronic Priority: Medium Code(s): I85.00 - ESOPHAGEAL VARICES WITHOUT BLEEDING SNOMED Code(s): 88788144 (4) Liver cirrhosis Current Visit: No Status: Chronic Priority: Medium Code(s): K74.60 - UNSPECIFIED CIRRHOSIS OF LIVER SNOMED Code(s): 58412118 Plan: Multiple labs have been ordered to evaluate macrocytic anemia as well as thro mbocytopenia. Patient does have history of iron deficiency, kidney dysfunction noted. Liver disease which could be causing a degree of splenic sequestration and platelet destruction, also liver disease can contribute to altered thrombopoietin. Gastroenterology as consult the patient has a known history of esophageal varices from cirrhotic liver disease, recent endoscopies, none plan for this ti il. Patient has reported no evidence of a recent acute bleed. Pending lab results. We'll move patient's follow-up about 1 month.
[2019-08-14 07:37] LABS: Methylmalonic Acid 0.64 umol/L (<0.40)
--- NOTE | 2019-08-14 11:26 | DS ---
DISCHARGE SUMMARY ADDENDUM: Severe protein calorie malnutrition. MMODL / IJN: [id number] /
== END 2019-08-13 17:48 | disposition home health service (06) | DRG 291 ==
LOC: 5NMEDONC 10:11
PROVIDERS: ADMIT Family Medicine; ATTEND Family Medicine
PROC: 30233N1 Transfusion of Nonautologous Red Blood Cells into Peripheral Vein, Percutaneous Approach (ICD-10-PCS; principal; 2019-08-10)
DX: I11.0 Hypertensive heart disease with heart failure (principal); E43 Unspecified severe protein-calorie malnutrition; E46 Unspecified protein-calorie malnutrition; J44.1 Chronic obstructive pulmonary disease with (acute) exacerbation; K76.6 Portal hypertension; N17.9 Acute kidney failure, unspecified; I85.10 Secondary esophageal varices without bleeding; I50.33 Acute on chronic diastolic (congestive) heart failure; G25.81 Restless legs syndrome; E78.5 Hyperlipidemia, unspecified; E66.9 Obesity, unspecified; D63.8 Anemia in other chronic diseases classified elsewhere; D53.9 Nutritional anemia, unspecified; D69.59 Other secondary thrombocytopenia; E03.9 Hypothyroidism, unspecified; F17.200 Nicotine dependence, unspecified, uncomplicated; F32.9 Major depressive disorder, single episode, unspecified; F41.9 Anxiety disorder, unspecified; K70.30 Alcoholic cirrhosis of liver without ascites; D73.1 Hypersplenism; K21.9 Gastro-esophageal reflux disease without esophagitis; K72.90 Hepatic failure, unspecified without coma; Z11.59 Encounter for screening for other viral diseases; Z79.899 Other long term (current) drug therapy; Z79.890 Hormone replacement therapy; Z79.51 Long term (current) use of inhaled steroids; Z85.42 Personal history of malignant neoplasm of other parts of uterus; Z86.73 Personal history of transient ischemic attack (TIA), and cerebral infarction without residual deficits; Z68.32 Body mass index [BMI] 32.0-32.9, adult; Z80.9 Family history of malignant neoplasm, unspecified; Z90.710 Acquired absence of both cervix and uterus; Z92.21 Personal history of antineoplastic chemotherapy; Z98.42 Cataract extraction status, left eye; Z98.41 Cataract extraction status, right eye; Z90.89 Acquired absence of other organs
CPT/HCPCS: 71046; 80048; 80053; 82607; 82728; 82747; 83540; 83550; 83735; 83880; 83883; 83921; 84165; 85025; 85045; 86038; 86334; 86431; 86850; 86870; 86880; 86900; 86901; 86920; 87635; 93005; 93306; 94640; 94760

== ENCOUNTER 2019-08-15 20:49 | Inpatient (IN) | payer MEDICARE ==
--- NOTE | 2019-08-15 21:17 | ED ---
Altered Mental Status HPI - General Chief Complaint: Altered Mental Status Stated Complaint: altered mental status Time Seen by Provider: 08/15/19 20:53 Source: patient, RN notes reviewed Mode of arrival: ambulatory Limitations: no limitations - History of Present Illness Initial Comments: This is a 74-year-old female who was brought in by EMS due to altered mental status and suspected UTI. Patient was noted to be awake and alert oriented x 2 with the strong smell of urine she does have a history of UTIs. No trauma no fevers chills sweats nausea vomiting or other symptoms reported at this time. Patient does admit to decreased oral intake MD Complaint: altered mental status - Related Data Home Medications Medication Instructions Recorded Confirmed Ferrous Sulfate [Feosol] 325 mg PO BID 10/29/16 08/10/19 Donepezil [Aricept] 10 mg PO HS 11/07/17 08/10/19 Levothyroxine Sodium [Synthroid] 25 mcg PO DAILY 11/07/17 08/10/19 Omeprazole [PriLOSEC] 40 mg PO DAILY 11/07/17 08/10/19 Cetirizine HCl [Zyrtec] 10 mg PO DAILY 01/14/19 08/10/19 Escitalopram [Lexapro] 10 mg PO DAILY 01/14/19 08/10/19 Gabapentin [Neurontin] 800 mg PO TID 01/14/19 08/10/19 Memantine [Namenda] 10 mg PO BID 01/14/19 08/10/19 Acetaminophen Tab [Tylenol] 650 mg PO Q6H PRN 05/01/19 08/10/19 Ipratropium-Albuterol Nebulize 3 ml INHALATION RT-QID PRN 05/01/19 08/10/19 [Duoneb 0.5 mg-3 mg/3 ml Soln] Baclofen 5 mg PO TID 06/28/19 08/10/19 Promethazine 6.25MG/5Ml [Phenergan 6.25 mg PO HS PRN 06/28/19 08/10/19 Syrup] SILVER sulfADIAZINE Cream 1 applic TOPICAL BID 06/28/19 08/10/19 [Silvadene 1% Cream] rOPINIRole HCL [Requip] 0.25 mg PO HS 06/28/19 08/10/19 traMADol HCl [Ultram] 50 mg PO BID PRN 07/21/19 08/10/19 Loperamide [Imodium] 2 mg PO QAM PRN 08/10/19 08/10/19 Previous Rx's Medication Instructions Recorded Propranolol [Inderal] 10 mg PO TID #90 tab 06/30/19 Budesonide-Formot 160-4.5 Mcg 2 puff INHALATION RT-BID #1 inh 08/13/19 [Symbicort 160-4.5 Mcg Inhaler] Furosemide [Lasix] 40 mg PO DAILY #90 tab 08/13/19 Lisinopril [Zestril] 20 mg PO DAILY #90 tab 08/13/19 Nicotine 14Mg/24Hr Patch [Habitrol] 1 patch TRANSDERM DAILY #30 patch 08/13/19 Potassium Chloride ER [K-Dur 20] 20 meq PO DAILY #30 tab 08/13/19 predniSONE 10 mg PO DIRECTED #30 tab 08/13/19 Allergies Allergy/AdvReac Type Severity Reaction Status Date / Time No Known Allergies Allergy Verified 08/15/19 21:01 Review of Systems ROS Statement: Those systems with pertinent positive or pertinent negative responses have been documented in the HPI. ROS Other: All systems not noted in ROS Statement are negative. Past Medical History Past Medical History: Cancer, Heart Failure, COPD, CVA/TIA, GERD/Reflux, GI Bleed, Hyperlipidemia, Hypertension, Osteoarthritis (OA) Additional Past Medical History / Comment(s): hx. uterine cancer, chemo 6 years ago, TIA several yrs. ago-forgetful, neuropathy feet & legs & hands, ANEMIA History of Any Multi-Drug Resistant Organisms: None Reported Past Surgical History: Hysterectomy, Tonsillectomy Additional Past Surgical History / Comment(s): COLONOSCOPY. EGD. BILAT CATARACTS REMOVED Past Anesthesia/Blood Transfusion Reactions: No Reported Reaction Past Psychological History: Anxiety, Depression Smoking Status: Current every day smoker Past Alcohol Use History: None Reported Past Drug Use History: None Reported - Past Family History Mother Family Medical History: Cancer Father History Unknown: Yes Family Medical History: Cancer Brother(s) Family Medical History: Cancer General Exam - General Exam Comments Initial Comments: A well-developed asthenic appearing female who is awake alert oriented 2 she knows [address] she isn't who she has an has no idea what day it is or month Limitations: no limitations General appearance: alert, in no apparent distress Head exam: Present: atraumatic, normocephalic, normal inspection Eye exam: Present: normal appearance, PERRL, EOMI. Absent: scleral icterus, conjunctival injection, periorbital swelling ENT exam: Present: mucous membranes dry Neck exam: Present: normal inspection. Absent: tenderness, meningismus, lymphadenopathy Respiratory exam: Present: normal lung sounds bilaterally. Absent: respiratory distress, wheezes, rales, rhonchi, stridor Cardiovascular Exam: Present: regular rate, normal rhythm, normal heart sounds. Absent: systolic murmur, diastolic murmur, rubs, gallop, clicks GI/Abdominal exam: Present: soft, normal bowel sounds. Absent: distended, tenderness, guarding, rebound, rigid Extremities exam: Present: normal inspection, full ROM, normal capillary refill. Absent: tenderness, pedal edema, joint swelling, calf tenderness Back exam: Present: normal inspection Neurological exam: Present: alert, altered, CN II-XII intact Psychiatric exam: Present: normal affect, normal mood Skin exam: Present: warm, dry, intact, normal color. Absent: rash Course Vital Signs 08/15/19 20:56 Temperature 97.6 F Pulse Rate 72 Respiratory 18 Rate Blood Pressure 157/82 O2 Sat by Pulse 91 L Oximetry Medical Decision Making - Medical Decision Making I did discuss the findings and the case with Dr. Chandra patient does demonstrate evidence of pneumonia UA is pending at this time patient will be admitted IV antibiotics IV fluids - Lab Data Result diagrams: 08/15/19 21:10 08/15/19 21:10 Lab Results 08/15/19 08/15/19 08/15/19 Range/Units 21:10 21:10 21:10 WBC 11.4 H (3.8-10.6) k/uL RBC 2.98 L (3.80-5.40) m/uL Hgb 9.3 L (11.4-16.0) gm/dL Hct 30.5 L (34.0-46.0) % MCV 102.6 H (80.0-100.0) fL MCH 31.3 (25.0-35.0) pg MCHC 30.5 L (31.0-37.0) g/dL RDW 19.5 H (11.5-15.5) % Plt Count 77 L (150-450) k/uL Neutrophils % (Manual) 96 % Lymphocytes % (Manual) 3 % Monocytes % (Manual) 1 % Neutrophils # (Manual) 10.94 H (1.3-7.7) k/uL Lymphocytes # (Manual) 0.34 L (1.0-4.8) k/uL Monocytes # (Manual) 0.11 (0-1.0) k/uL Nucleated RBCs 0 (0-0) /100 WBC Manual Slide Review Performed Large Platelets Present Polychromasia Present Hypochromasia Marked Poikilocytosis Slight Anisocytosis Slight Macrocytosis Moderate Target Cells Present Sodium 143 (137-145) mmol/L Potassium 3.7 (3.5-5.1) mmol/L Chloride 109 H (98-107) mmol/L Carbon Dioxide 25 (22-30) mmol/L Anion Gap 9 mmol/L BUN 35 H (7-17) mg/dL Creatinine 1.10 H (0.52-1.04) mg/dL Est GFR (CKD-EPI)AfAm 56 (>60 ml/min/1.73 sqM) Est GFR (CKD-EPI)NonAf 49 (>60 ml/min/1.73 sqM) Glucose 173 H (74-99) mg/dL Plasma Lactic Acid Gamaliel 2.4 H* (0.7-2.0) mmol/L Calcium 8.4 (8.4-10.2) mg/dL Magnesium 1.6 (1.6-2.3) mg/dL Total Bilirubin 2.0 H (0.2-1.3) mg/dL AST 37 H (14-36) U/L ALT 17 (4-34) U/L Alkaline Phosphatase 104 (38-126) U/L Creatine Kinase 26 L (30-135) U/L Total Protein 7.7 (6.3-8.2) g/dL Albumin 2.8 L (3.5-5.0) g/dL - EKG Data -: EKG Interpreted by Me EKG shows normal: sinus rhythm (Sinus rhythm a 74. Interval 124 QRS duration 90 QT since QTC 446/[address]-T wave configuration prolonged QT) - Radiology Data Radiology results: report reviewed (I did review the imaging x-ray shows evidence of interstitial infiltrate. CT unremarkable for acute findings), image reviewed Disposition Clinical Impression: Pneumonia, Dehydration, Delirium due to general medical condition Disposition: ADMITTED IP TO THIS [facility] Condition: Fair Referrals: Bebeto Davila MD [Primary Care Provider] - 1-2 days
[2019-08-15 21:41] LABS: Anisocytosis Slight; HCT 30.5 % (34.0-46.0); HGB 9.3 gm/dL (11.4-16.0); Hypochromasia Marked; MCH 31.3 pg (25.0-35.0); MCHC 30.5 g/dL (31.0-37.0); MCV 102.6 fL (80.0-100.0); Macrocytosis Moderate; Mean Platelet Volume 13.3; Poikilocytosis Slight; RBC 2.98 m/uL (3.80-5.40); RDW 19.5 % (11.5-15.5); WBC 11.4 k/uL (3.8-10.6)
[2019-08-15 21:42] LABS: Potassium 3.7 mmol/L (3.5-5.1)
[2019-08-15 21:43] LABS: Albumin 2.8 g/dL (3.5-5.0); Calcium 8.4 mg/dL (8.4-10.2); Magnesium 1.6 mg/dL (1.6-2.3); Total Protein 7.7 g/dL (6.3-8.2)
--- NOTE | 2019-08-15 21:54 | XR ---
EXAMINATION TYPE: XR chest 2V DATE OF EXAM: 08/15/2019 COMPARISON: 08/11/2019 HISTORY: Short of breath. Confusion TECHNIQUE: FINDINGS: There is diffuse pulmonary interstitial edema. Heart is top normal in size. There is right central venous catheter with the tip in the right atrium. There is no pneumothorax. There is very sli ght blunting of the costophrenic angles. IMPRESSION: Pulmonary interstitial edema and small pleural effusions unchanged. I would consider poss ibilities of mild congestive heart failure and interstitial pneumonia.
[2019-08-15 22:16] LABS: Lymphocytes # (M) 0.34 k/uL (1.0-4.8); Monocytes # (M) 0.11 k/uL (0-1.0); Neutrophils # (M) 10.94 k/uL (1.3-7.7); Neutrophils % (M) 96 %; Nucleated Red Blood Cells 0 /100 WBC (0-0); Total Cells Counted 100
[2019-08-15 22:17] LABS: Large Platelets Present; Polychromasia Present
[2019-08-15 22:18] LABS: Target Cells Present
[2019-08-15 22:21] LABS: Platelet Count 77 k/uL (150-450)
[2019-08-15] MEDS ORDERED: cefTRIAXone IN SWFI 1,000 MG/10 ML SYRINGE IVP STA (23:00)
[2019-08-15] MEDS ORDERED: PNEUMONIA PROTOCOL UTILIZED 1 EACH MISC PO PRN (23:10)
[2019-08-15] MEDS ORDERED: AZITHROMYCIN 500 MG in SODIUM CHLORIDE 0.9% 250 ML IVPB STA (23:10)
[2019-08-15] MEDS ORDERED: ACETAMINOPHEN TAB 325 MG TAB PO PRN (23:11)
[2019-08-15] MEDS ORDERED: predniSONE 10 MG TAB PO SCH (23:15)
--- NOTE | 2019-08-15 23:27 | CT ---
EXAMINATION TYPE: CT brain wo con DATE OF EXAM: 08/15/2019 COMPARISON: None HISTORY: AMS CT DLP: 1141.4 mGycm Automated exposure control for dose reduction was used. Exam performed with no contrast. There is some cerebral cortical atrophy. There is no mass effect nor midline shift. There is no sign of intracranial hemorrhage. There is white matter hypodensity right posterior frontal lobe. Calvarium is intact. Skull base is intact. IMPRESSION: Cerebral atrophy. There is evidence of some chronic white matter ischemia right posterior frontal lob e. No acute intracranial abnormality.
[2019-08-15] MEDS: SODIUM CHLORIDE 0.9% 1,000 ML IV SCH (23:49)
[2019-08-15] MEDS ORDERED: traMADol 50 MG TAB PO PRN (23:50)
[2019-08-15 23:53] LABS: Appearance,Urine Clear (Clear); Bacteria,Urine Rare /hpf; Bilirubin,Urine Negative (Negative); Blood,Urine Negative (Negative); Color,Urine Light Yellow; Glucose,Urine (UA) Negative (Negative); Hyaline Casts,Urine 3 /lpf (0-2); Ketones,Urine Negative (Negative); Leukocyte Esterase,Urine Small (Negative); Mucus,Urine Rare /hpf; Nitrite,Urine Negative (Negative); Protein,Urine Negative (Negative); RBC,Urine 1 /hpf (0-5); Specific Gravity,Urine 1.007 (1.001-1.035); Squamous Epithelial Cell,Urine <1 /hpf (0-4); Urobilinogen,Urine <2.0 mg/dL (<2.0); WBC,Urine 3 /hpf (0-5)
[2019-08-15] MEDS ORDERED: SODIUM CHLORIDE 0.9% 1,000 ML IV ONE (23:59)
[2019-08-15] MEDS ORDERED: SODIUM CHLORIDE 0.9% 500 ML 500 ML IV ONE (23:59)
--- NOTE | 2019-08-16 00:16 | XR ---
EXAMINATION TYPE: XR toes LT DATE OF EXAM: 08/15/2019 COMPARISON: NONE HISTORY: Big toe discoloration and pain TECHNIQUE: 3 views FINDINGS: I see no fracture nor dislocation. There is osteopenia. There is small linear metallic fore ign body at the medial plantar aspect of the proximal phalanx of the big toe. This is consistent with a broken needle foreign body. Foreign body measures 4 mm in length. I see no focal bone destruction. IMPRESSION: No fracture. No sign of osteomyelitis. Small broken needle foreign body at the medial as pect of the head of the proximal phalanx of the big toe left foot.
[2019-08-16] MEDS: LEVOTHYROXINE 25 MCG TAB PO SCH (05:40)
[2019-08-16] MEDS: IPRATROPIUM-ALBUTEROL 3 ML NEB INHALATION PRN ×4 (07:38→19:42)
[2019-08-16] MEDS: SYMBICORT 160-4.5 MCG INHALER INHALATION SCH ×2 (07:38→19:42)
--- NOTE | 2019-08-16 08:55 | XR ---
EXAMINATION TYPE: XR chest 2V DATE OF EXAM: 08/16/2019 HISTORY: pneumonia. REFERENCE: Previous study dated 08/15/2019. FINDINGS: A MediPort is in place via a right internal jugular approach. Its tip is in the superior ve na cava. Heart size upper limits of normal. There is patchy, bilateral airspace disease. Heart size upper limi ts of normal. There is minimal blunting of the right CP angle. I could not exclude a small right effu cedric. IMPRESSION: WORSENING, PATCHY, BILATERAL PNEUMONIA.
[2019-08-16] MEDS: PANTOPRAZOLE 40 MG TABLET PO SCH (08:57)
[2019-08-16] MEDS: POTASSIUM CHLORIDE ER 20 MEQ TAB.ER PO SCH (08:57)
[2019-08-16] MEDS: ESCITALOPRAM 10 MG TAB PO SCH (08:58)
[2019-08-16] MEDS: FUROSEMIDE 40 MG TAB PO SCH (08:58)
[2019-08-16] MEDS: LORATADINE 10 MG TAB PO SCH (08:58)
[2019-08-16] MEDS: BACLOFEN 10 MG TAB PO SCH ×3 (08:58→21:12)
[2019-08-16] MEDS: FERROUS SULFATE 325 MG TAB PO SCH ×2 (08:58→21:12)
[2019-08-16] MEDS: LISINOPRIL 20 MG TAB PO SCH (08:58)
[2019-08-16] MEDS: PROPRANOLOL 10 MG TAB PO SCH ×3 (08:59→21:11)
[2019-08-16] MEDS: GABAPENTIN 400 MG CAP PO SCH ×3 (08:59→21:11)
[2019-08-16] MEDS: NICOTINE 14MG/24HR PATCH TRANSDERM SCH (08:59)
[2019-08-16] MEDS: MEMANTINE 10 MG TAB PO SCH ×2 (08:59→21:11)
[2019-08-16] MEDS: SODIUM CHLORIDE 0.9% 1,000 ML IV SCH ×2 (09:01→17:46)
[2019-08-16] MEDS: predniSONE 10 MG TAB PO SCH (10:11)
[2019-08-16] MEDS: MAG HYDROX/AL HYDROX/SIMETH 30 ML CUP PO PRN (16:09)
--- NOTE | 2019-08-16 16:39 | P.CNPUL ---
History of Present Illness Consult date: 08/16/19 Reason for consult: dyspnea, cough, COPD Chief complaint: Shortness of breath and cough History of present illness: This is a 74-year-old female admitted from the emergency department with altered mental status also has problem with incontinence and cough as well patient is a poor historian not much data can be obtained from her most of the data has been obtained from the chart revealed that chest x-ray revealed bilateral infiltrate with small pleural effusion cannot be excluded patient remains on antibiotics breathing treatments steroids, Review of Systems All systems: negative Past Medical History Past Medical History: Cancer, Heart Failure, COPD, CVA/TIA, GERD/Reflux, GI Bleed, Hyperlipidemia, Hypertension, Osteoarthritis (OA) Additional Past Medical History / Comment(s): hx. uterine cancer, chemo 6 years ago, TIA several yrs. ago-forgetful, neuropathy feet & legs & hands, ANEMIA History of Any Multi-Drug Resistant Organisms: None Reported Past Surgical History: Hysterectomy, Tonsillectomy Additional Past Surgical History / Comment(s): COLONOSCOPY. EGD. BILAT CATARACTS REMOVED Past Anesthesia/Blood Transfusion Reactions: No Reported Reaction Past Psychological History: Anxiety, Depression Smoking Status: Current every day smoker Past Alcohol Use History: None Reported Additional Past Alcohol Use History / Comment(s): SMOKES 1PPD SINCE AGE 12 Past Drug Use History: None Reported - Past Family History Mother Family Medical History: Cancer Father History Unknown: Yes Family Medical History: Cancer Brother(s) Family Medical History: Cancer Medications and Allergies Home Medications Medication Instructions Recorded Confirmed Type Ferrous Sulfate [Feosol] 325 mg PO BID 10/29/16 08/16/19 History Donepezil [Aricept] 10 mg PO HS 11/07/17 08/16/19 History Levothyroxine Sodium [Synthroid] 25 mcg PO DAILY 11/07/17 08/16/19 History Omeprazole [PriLOSEC] 40 mg PO DAILY 11/07/17 08/16/19 History Cetirizine HCl [Zyrtec] 10 mg PO DAILY 01/14/19 08/16/19 History Escitalopram [Lexapro] 10 mg PO DAILY 01/14/19 08/16/19 History Gabapentin [Neurontin] 800 mg PO TID 01/14/19 08/16/19 History Memantine [Namenda] 10 mg PO BID 01/14/19 08/16/19 History Acetaminophen Tab [Tylenol] 650 mg PO Q6H PRN 05/01/19 08/16/19 History Ipratropium-Albuterol Nebulize 3 ml INHALATION RT-QID PRN 05/01/19 08/16/19 History [Duoneb 0.5 mg-3 mg/3 ml Soln] Baclofen 5 mg PO TID 06/28/19 08/16/19 History Promethazine 6.25MG/5Ml [Phenergan 6.25 mg PO HS PRN 06/28/19 08/16/19 History Syrup] SILVER sulfADIAZINE Cream 1 applic TOPICAL BID 06/28/19 08/16/19 History [Silvadene 1% Cream] rOPINIRole HCL [Requip] 0.25 mg PO HS 06/28/19 08/16/19 History Propranolol [Inderal] 10 mg PO TID #90 tab 06/30/19 08/16/19 Rx traMADol HCl [Ultram] 50 mg PO BID PRN 07/21/19 08/16/19 History Loperamide [Imodium] 2 mg PO QAM PRN 08/10/19 08/16/19 History Budesonide-Formot 160-4.5 Mcg 2 puff INHALATION RT-BID #1 inh 08/13/19 08/16/19 Rx [Symbicort 160-4.5 Mcg Inhaler] Furosemide [Lasix] 40 mg PO DAILY #90 tab 08/13/19 08/16/19 Rx Lisinopril [Zestril] 20 mg PO DAILY #90 tab 08/13/19 08/16/19 Rx Nicotine 14Mg/24Hr Patch [Habitrol] 1 patch TRANSDERM DAILY #30 patch 08/13/19 08/16/19 Rx Potassium Chloride ER [K-Dur 20] 20 meq PO DAILY #30 tab 08/13/19 08/16/19 Rx Furosemide [Lasix] 20 mg PO HS 08/16/19 08/16/19 History predniSONE See Taper PO DAILY 08/16/19 08/16/19 History Allergies Allergy/AdvReac Type Severity Reaction Status Date / Time No Known Allergies Allergy Verified 08/16/19 08:54 Physical Exam Vitals: Vital Signs Temp Pulse Pulse Resp BP BP Pulse Ox 08/16/19 15:27 76 08/16/19 15:16 72 08/16/19 11:30 72 08/16/19 11:20 68 08/16/19 07:49 72 08/16/19 07:39 72 08/16/19 07:00 97.9 F 70 18 157/61 96 08/16/19 02:15 97.5 F L 76 151/69 94 L 08/15/19 23:24 97.9 F 75 18 165/70 95 08/15/19 20:56 97.6 F 72 18 157/82 91 L Intake and Output 08/16/19 08/16/19 08/16/19 06:59 14:59 22:59 Intake Total 800 Balance 800 Intake: IV 800 Sodium Chloride 0.9% 1, 800 000 ml @ 100 mls/hr IV . Q10H [facility] Rx#:[id number] Other: Voiding Method Diaper Incontinent # Voids 3 Weight 66.224 kg - Constitutional General appearance: average body habitus, disheveled, mild distress - EENT Eyes: EOMI, PERRLA Ears: bilateral: normal - Neck Neck: normal ROM Carotids: bilateral: upstroke normal Thyroid: bilateral: normal size - Respiratory Respiratory: bilateral: diminished, rales - Cardiovascular Rhythm: regular Heart sounds: normal: S1, S2 - Gastrointestinal General gastrointestinal: normal bowel sounds, soft - Musculoskeletal Musculoskeletal: generalized weakness Results - Laboratory Findings CBC and BMP: 08/15/19 21:10 08/15/19 21:10 Abnormal lab findings: Abnormal Labs 08/15/19 08/15/19 08/15/19 21:10 21:10 21:10 WBC 11.4 H RBC 2.98 L Hgb 9.3 L Hct 30.5 L MCV 102.6 H MCHC 30.5 L RDW 19.5 H Plt Count 77 L Neutrophils # (Manual) 10.94 H Lymphocytes # (Manual) 0.34 L Chloride 109 H BUN 35 H Creatinine 1.10 H Glucose 173 H Plasma Lactic Acid Gamaliel 2.4 H* Total Bilirubin 2.0 H AST 37 H Creatine Kinase 26 L Albumin 2.8 L Ur Leukocyte Esterase Urine Bacteria Hyaline Casts Urine Mucus Stool Occult Blood 08/15/19 08/16/19 23:16 01:24 WBC RBC Hgb Hct MCV MCHC RDW Plt Count Neutrophils # (Manual) Lymphocytes # (Manual) Chloride BUN Creatinine Glucose Plasma Lactic Acid Gamaliel Total Bilirubin AST Creatine Kinase Albumin Ur Leukocyte Esterase Small H Urine Bacteria Rare H Hyaline Casts 3 H Urine Mucus Rare H Stool Occult Blood Positive H - Diagnostic Findings Chest x-ray: report reviewed, image reviewed Assessment and Plan Assessment: Bilateral basal pneumonia Acute COPD exacerbation Tracheobronchitis Altered mental status metabolic related to multifactorial processes including pneumonia possible ECF/and Sirs-like process with baseline dementia and Alzheimer's disease Dementia and Alzheimer's disease Plan: Continue broad-spectrum antibiotics gentle rehydration continue supportive care follow clinical course closely further recommendations pending plan of care as per clinical response of patient Time with Patient: Greater than 30
[2019-08-16] MEDS ORDERED: PROMETHAZINE HCL 6.25 MG/5 ML CUP PO PRN (21:00)
[2019-08-16] MEDS: DONEPEZIL 10 MG TAB PO SCH (21:11)
[2019-08-16] MEDS: AZITHROMYCIN 500 MG TAB PO SCH (21:11)
[2019-08-17] MEDS: LEVOTHYROXINE 25 MCG TAB PO SCH (05:35)
[2019-08-17] MEDS: SODIUM CHLORIDE 0.9% 1,000 ML IV SCH ×3 (05:39→21:57)
[2019-08-17] MEDS: MEMANTINE 10 MG TAB PO SCH ×2 (07:57→21:56)
[2019-08-17] MEDS: predniSONE 10 MG TAB PO SCH (07:57)
[2019-08-17] MEDS: GABAPENTIN 400 MG CAP PO SCH ×3 (07:57→21:56)
[2019-08-17] MEDS: NICOTINE 14MG/24HR PATCH TRANSDERM SCH (07:57)
[2019-08-17] MEDS: POTASSIUM CHLORIDE ER 20 MEQ TAB.ER PO SCH (07:58)
[2019-08-17] MEDS: FERROUS SULFATE 325 MG TAB PO SCH ×2 (07:58→21:56)
[2019-08-17] MEDS: PANTOPRAZOLE 40 MG TABLET PO SCH (07:58)
[2019-08-17] MEDS: LISINOPRIL 20 MG TAB PO SCH (07:58)
[2019-08-17] MEDS: BACLOFEN 10 MG TAB PO SCH ×3 (07:58→21:57)
[2019-08-17] MEDS: FUROSEMIDE 40 MG TAB PO SCH (07:58)
[2019-08-17] MEDS: AZITHROMYCIN 500 MG TAB PO SCH (08:07)
[2019-08-17] MEDS: PROPRANOLOL 10 MG TAB PO SCH ×3 (08:08→22:02)
[2019-08-17] MEDS: LORATADINE 10 MG TAB PO SCH (08:08)
[2019-08-17 08:30] LABS: Anisocytosis Slight; HCT 33.1 % (34.0-46.0); HGB 9.8 gm/dL (11.4-16.0); Hypochromasia Marked; MCH 31.3 pg (25.0-35.0); MCHC 29.5 g/dL (31.0-37.0); MCV 105.9 fL (80.0-100.0); Macrocytosis Marked; Mean Platelet Volume 11.6; Platelet Count 100 k/uL (150-450); RBC 3.13 m/uL (3.80-5.40); RDW 19.6 % (11.5-15.5); WBC 14.1 k/uL (3.8-10.6)
[2019-08-17] MEDS: SYMBICORT 160-4.5 MCG INHALER INHALATION SCH ×2 (08:49→20:52)
[2019-08-17] MEDS: ESCITALOPRAM 10 MG TAB PO SCH (08:51)
[2019-08-17 08:52] LABS: Albumin 2.8 g/dL (3.5-5.0); Calcium 8.2 mg/dL (8.4-10.2); Potassium 3.4 mmol/L (3.5-5.1); Total Bilirubin 0.9 mg/dL (0.2-1.3); Total Protein 7.9 g/dL (6.3-8.2)
[2019-08-17] MEDS: MAG HYDROX/AL HYDROX/SIMETH 30 ML CUP PO PRN (09:17)
[2019-08-17 09:48] LABS: Band Neutrophils % 1 %; Eosinophils # (M) 0.28 k/uL (0-0.7); Large Platelets Present; Lymphocytes # (M) 0.99 k/uL (1.0-4.8); Metamyelocytes # (M) 0.14 k/uL (0); Metamyelocytes % 1 %; Monocytes # (M) 0.99 k/uL (0-1.0); Neutrophils % (M) 84 %; Nucleated Red Blood Cells 0 /100 WBC (0-0); Poikilocytosis (M) Present; Rouleaux Present; Total Cells Counted 200
[2019-08-17] MEDS ORDERED: Potassium Replacement Protocol 1 EACH MISC MISCELLANE PRN (09:49)
[2019-08-17] MEDS ORDERED: Magnesium Replacement Protocol 1 EACH MISC MISCELLANE PRN (09:50)
[2019-08-17] MEDS: IPRATROPIUM-ALBUTEROL 3 ML NEB INHALATION PRN ×3 (11:07→20:52)
[2019-08-17] MEDS: LOPERAMIDE 2 MG CAP PO PRN (15:49)
--- NOTE | 2019-08-17 17:15 | P.PN ---
Subjective Progress Note Date: 08/17/19 This is a 74-year-old female admitted with acute metabolic encephalopathy, bilateral pneumonia, acute COPD exacerbation and multiple other medical issues. Maintained on nebulized bronchodilators, IV antibiotics with significant clinical improvement. Receiving supplements for both potassium and magnesium. Hemoglobin 9.8. Denies chest pain, palpitations or increased shortness of breath. Creatinine 1.13. Objective - Vital Signs Vital signs: Vital Signs Temp 98.0 F 08/17/19 14:33 Pulse 80 08/17/19 16:53 Resp 15 08/17/19 14:33 BP 164/72 08/17/19 14:33 Pulse Ox 94 L 08/17/19 16:39 Intake & Output 08/16/19 08/17/19 08/17/19 18:59 06:59 18:59 Intake Total 800 300 300 Balance 800 300 300 Intake: IV 800 Sodium Chloride 0.9% 1, 800 000 ml @ 100 mls/hr IV . Q10H [facility] Rx#:[id number] Oral 300 300 Other: Voiding Method Toilet Bedside Commode Incontinent # Voids 1 # Bowel Movements 4 2 - Exam PHYSICAL EXAM: VITAL SIGNS: As above GENERAL: Sitting up in bed, no acute distress HEENT: Conjunctivae normal. eyes normal. Oral mucosa moist NECK: No JVD. No thyroid enlargement. No LNs CARDIOVASCULAR: S1, S2 regular.Systolic murmur RESPIRATION: Breath sounds diminished in the bases. No rhonchi or crackles. No expiratory wheezing. ABDOMEN: Soft, nontender . No guarding. no masses palpable. No ascites, No hepatosplenomegaly.Bowel sounds heard. LEGS: Decreasing Bilateral lower extremity trace edema with no clubbing, no cyanosis. PSYCHIATRY: Alert and oriented X3, mood and affect normal. NERVOUS SYSTEM: Cranial N 2-12 grossly normal. Moves all 4 limbs. No focal deficits. Strength and sensation grossly intact. Skin: no lesions, no rash - Labs CBC & Chem 7: 08/17/19 07:46 08/17/19 07:46 Labs: Abnormal Lab Results - Last 24 Hours (Table) 08/17/19 08/17/19 Range/Units 07:46 07:46 WBC 14.1 H (3.8-10.6) k/uL RBC 3.13 L (3.80-5.40) m/uL Hgb 9.8 L (11.4-16.0) gm/dL Hct 33.1 L (34.0-46.0) % MCV 105.9 H (80.0-100.0) fL MCHC 29.5 L (31.0-37.0) g/dL RDW 19.6 H (11.5-15.5) % Plt Count 100 L (150-450) k/uL Neutrophils # (Manual) 11.90 H (1.3-7.7) k/uL Lymphocytes # (Manual) 0.99 L (1.0-4.8) k/uL Metamyelocytes # (Man) 0.14 H (0) k/uL Macrocytosis Marked A Potassium 3.4 L (3.5-5.1) mmol/L Chloride 109 H (98-107) mmol/L BUN 33 H (7-17) mg/dL Creatinine 1.13 H (0.52-1.04) mg/dL Glucose 130 H (74-99) mg/dL Calcium 8.2 L (8.4-10.2) mg/dL AST 39 H (14-36) U/L Alkaline Phosphatase 145 H (38-126) U/L Albumin 2.8 L (3.5-5.0) g/dL Microbiology - Last 24 Hours (Table) 08/16/19 20:45 Gram Stain - Preliminary Sputum Sputum Culture - Preliminary 08/15/19 21:10 Blood Culture - Preliminary Blood No Growth after 24 hours Assessment and Plan Assessment: Acute COPD exacerbation Bilateral basal pneumonia Acute metabolic encephalopathy, multifactorial, secondary to the above as well as dementia possibly Alzheimer's dementia Chronic CHF exacerbation, diastolic dysfunction Chronic anemia secondary to esophageal varices Recent EGD with recent banding Acute renal failure Hypoalbuminemia Gastroesophageal reflux disease Restless leg syndrome Hypothyroidism Severe Protein calorie malnutrition, History of uterine cancer Plan: Continue on current medication regime ,monitoring and symptomatic treatment. Maintain nebulized bronchodilators, antibiotics. Potassium and magnesium supplementation in progress, close monitoring of electrolyte with repeat labs ordered for a.m. discharge planning in progress for tomorrow. The impression and plan of care has been dictated as directed. : I performed a history and examination of this patient, discussed the same with the dictator. I agree with the dictator's note ,documented as a scribe. Any additional findings or plans will be noted.
--- NOTE | 2019-08-17 18:04 | P.PN ---
Subjective Progress Note Date: 08/17/19 Principal diagnosis: Bilateral basal pneumonia Acute COPD exacerbation Tracheobronchitis Altered mental status metabolic related to multifactorial processes including pneumonia possible ECF/and Sirs-like process with baseline dementia and Alzheimer's disease Dementia and Alzheimer's disease 08/17/2019, patient is breathing comfortably off of oxygen on room air breathing status stable, denies any cough or sputum production patient is being planned for possible discharge tomorrow This is a 74-year-old female admitted from the emergency department with altered mental status also has problem with incontinence and cough as well patient is a poor historian not much data can be obtained from her most of the data has been obtained from the chart revealed that chest x-ray revealed bilateral infiltrate with small pleural effusion cannot be excluded patient remains on antibiotics breathing treatments steroids, Objective - Vital Signs Vital signs: Vital Signs Temp 98.0 F 08/17/19 14:33 Pulse 80 08/17/19 16:53 Resp 15 08/17/19 14:33 BP 164/72 08/17/19 14:33 Pulse Ox 94 L 08/17/19 16:39 Intake & Output 08/16/19 08/17/19 08/17/19 18:59 06:59 18:59 Intake Total 800 300 300 Balance 800 300 300 Intake: IV 800 Sodium Chloride 0.9% 1, 800 000 ml @ 100 mls/hr IV . Q10H [facility] Rx#:[id number] Oral 300 300 Other: Voiding Method Toilet Bedside Commode Incontinent # Voids 1 # Bowel Movements 4 2 - Exam - Constitutional General appearance: average body habitus, disheveled, mild distress - EENT Eyes: EOMI, PERRLA Ears: bilateral: normal - Neck Neck: normal ROM Carotids: bilateral: upstroke normal Thyroid: bilateral: normal size - Respiratory Respiratory: bilateral: diminished, rales - Cardiovascular Rhythm: regular Heart sounds: normal: S1, S2 - Gastrointestinal General gastrointestinal: normal bowel sounds, soft - Musculoskeletal Musculoskeletal: generalized weakness - Labs CBC & Chem 7: 08/17/19 07:46 08/17/19 07:46 Labs: Abnormal Lab Results - Last 24 Hours (Table) 08/17/19 08/17/19 Range/Units 07:46 07:46 WBC 14.1 H (3.8-10.6) k/uL RBC 3.13 L (3.80-5.40) m/uL Hgb 9.8 L (11.4-16.0) gm/dL Hct 33.1 L (34.0-46.0) % MCV 105.9 H (80.0-100.0) fL MCHC 29.5 L (31.0-37.0) g/dL RDW 19.6 H (11.5-15.5) % Plt Count 100 L (150-450) k/uL Neutrophils # (Manual) 11.90 H (1.3-7.7) k/uL Lymphocytes # (Manual) 0.99 L (1.0-4.8) k/uL Metamyelocytes # (Man) 0.14 H (0) k/uL Macrocytosis Marked A Potassium 3.4 L (3.5-5.1) mmol/L Chloride 109 H (98-107) mmol/L BUN 33 H (7-17) mg/dL Creatinine 1.13 H (0.52-1.04) mg/dL Glucose 130 H (74-99) mg/dL Calcium 8.2 L (8.4-10.2) mg/dL AST 39 H (14-36) U/L Alkaline Phosphatase 145 H (38-126) U/L Albumin 2.8 L (3.5-5.0) g/dL Microbiology - Last 24 Hours (Table) 08/16/19 20:45 Gram Stain - Preliminary Sputum Sputum Culture - Preliminary 08/15/19 21:10 Blood Culture - Preliminary Blood No Growth after 24 hours Assessment and Plan Assessment: Bilateral basal pneumonia Acute COPD exacerbation Tracheobronchitis Altered mental status metabolic related to multifactorial processes including pneumonia possible ECF/and Sirs-like process with baseline dementia and Alzh eimer's disease Dementia and Alzheimer's disease Plan: Continue broad-spectrum antibiotics gentle rehydration continue supportive care follow clinical course closely further recommendations pending plan of care as per clinical response of patient Time with Patient: Greater than 30
[2019-08-17] MEDS: DONEPEZIL 10 MG TAB PO SCH (21:57)
[2019-08-18] MEDS: SODIUM CHLORIDE 0.9% 1,000 ML IV SCH (05:54)
[2019-08-18] MEDS: LEVOTHYROXINE 25 MCG TAB PO SCH (05:54)
[2019-08-18 07:42] LABS: Calcium 7.6 mg/dL (8.4-10.2); Magnesium 1.5 mg/dL (1.6-2.3); Potassium 3.1 mmol/L (3.5-5.1)
[2019-08-18] MEDS: SYMBICORT 160-4.5 MCG INHALER INHALATION SCH (07:49)
[2019-08-18] MEDS: IPRATROPIUM-ALBUTEROL 3 ML NEB INHALATION PRN (07:49)
[2019-08-18 07:53] LABS: Anisocytosis Slight; HCT 28.2 % (34.0-46.0); Hypochromasia Marked; MCH 30.9 pg (25.0-35.0); MCHC 29.5 g/dL (31.0-37.0); MCV 104.7 fL (80.0-100.0); Macrocytosis Marked; Mean Platelet Volume 11.5; RBC 2.69 m/uL (3.80-5.40); RDW 18.8 % (11.5-15.5); WBC 5.9 k/uL (3.8-10.6)
[2019-08-18 07:58] LABS: HGB 8.3 gm/dL (11.4-16.0)
[2019-08-18] MEDS: FUROSEMIDE 40 MG TAB PO SCH (08:50)
[2019-08-18] MEDS: MEMANTINE 10 MG TAB PO SCH (08:50)
[2019-08-18] MEDS: LOPERAMIDE 2 MG CAP PO PRN (08:50)
[2019-08-18] MEDS: predniSONE 10 MG TAB PO SCH (08:50)
[2019-08-18] MEDS: GABAPENTIN 400 MG CAP PO SCH ×2 (08:50→16:09)
[2019-08-18] MEDS: BACLOFEN 10 MG TAB PO SCH ×2 (08:50→16:08)
[2019-08-18] MEDS: NICOTINE 14MG/24HR PATCH TRANSDERM SCH (08:50)
[2019-08-18] MEDS: LORATADINE 10 MG TAB PO SCH (08:51)
[2019-08-18] MEDS: LISINOPRIL 20 MG TAB PO SCH (08:51)
[2019-08-18] MEDS: POTASSIUM CHLORIDE ER 20 MEQ TAB.ER PO SCH ×3 (08:51→13:17)
[2019-08-18] MEDS: ESCITALOPRAM 10 MG TAB PO SCH (08:51)
[2019-08-18] MEDS: FERROUS SULFATE 325 MG TAB PO SCH (08:51)
[2019-08-18] MEDS: PANTOPRAZOLE 40 MG TABLET PO SCH (08:51)
[2019-08-18] MEDS: AZITHROMYCIN 500 MG TAB PO SCH (08:51)
[2019-08-18] MEDS: PROPRANOLOL 10 MG TAB PO SCH ×2 (08:51→16:08)
[2019-08-18 09:43] LABS: Eosinophils # (M) 0.06 k/uL (0-0.7); Lymphocytes # (M) 0.59 k/uL (1.0-4.8); Monocytes # (M) 0.35 k/uL (0-1.0); Myelocytes # (M) 0.06 k/uL (0); Myelocytes % 1 %; Neutrophils % (M) 83 %; Nucleated Red Blood Cells 0 /100 WBC (0-0); Platelet Count 44 k/uL (150-450); Poikilocytosis (M) Present; Total Cells Counted 200
[2019-08-18] MEDS ORDERED: Magnesium Replacement Protocol 1 EACH MISC MISCELLANE PRN (10:34)
[2019-08-18 10:50] VITALS: RESP 18
[2019-08-18] MEDS: MAGNESIUM SULFATE-D5W PMX 1 GM in DEXTROSE/WATER 1 100ML.BAG IVPB SCH ×2 (11:29→14:07)
[2019-08-18 14:51] VITALS: BP 146/61; PULSE 62; TEMP 97.5
--- NOTE | 2019-08-18 14:55 | P.PN ---
Subjective Progress Note Date: 08/18/19 Principal diagnosis: Bilateral basal pneumonia Acute COPD exacerbation Tracheobronchitis Altered mental status metabolic related to multifactorial processes including pneumonia possible ECF/and Sirs-like process with baseline dementia and Alzheimer's disease Dementia and Alzheimer's disease 08/18/2019, patient seen eval examined during the rounds overall respiratory status remains stable, patient has a hypomagnesemia for which her diet magnesium is being replaced, respiratory cummins is stable denies any cough or sputum production patient is being planned for discharge later on today if remains stable 08/17/2019, patient is breathing comfortably off of oxygen on room air breathing status stable, denies any cough or sputum production patient is being planned for possible discharge tomorrow This is a 74-year-old female admitted from the emergency department with altered mental status also has problem with incontinence and cough as well patient is a poor historian not much data can be obtained from her most of the data has been obtained from the chart revealed that chest x-ray revealed bilateral infiltrate with small pleural effusion cannot be excluded patient remains on antibiotics breathing treatments steroids, Objective - Vital Signs Vital signs: Vital Signs Temp 97.5 F L 08/18/19 14:50 Pulse 62 08/18/19 14:50 Resp 18 08/18/19 14:50 BP 146/61 08/18/19 14:50 Pulse Ox 93 L 08/18/19 14:50 Intake & Output 08/17/19 08/18/19 08/18/19 18:59 06:59 18:59 Intake Total 300 1000 532 Balance 300 1000 532 Intake: Oral 300 1000 532 Other: Voiding Method Toilet Toilet Bedside Commode Bedside Commode Incontinent Incontinent # Voids 2 3 # Bowel Movements 2 2 - Exam - Constitutional General appearance: average body habitus, disheveled, mild distress - EENT Eyes: EOMI, PERRLA Ears: bilateral: normal - Neck Neck: normal ROM Carotids: bilateral: upstroke normal Thyroid: bilateral: normal size - Respiratory Respiratory: bilateral: diminished, rales - Cardiovascular Rhythm: regular Heart sounds: normal: S1, S2 - Gastrointestinal General gastrointestinal: normal bowel sounds, soft - Musculoskeletal Musculoskeletal: generalized weakness - Labs CBC & Chem 7: 08/18/19 07:10 08/18/19 07:10 Labs: Abnormal Lab Results - Last 24 Hours (Table) 08/18/19 08/18/19 Range/Units 07:10 07:10 RBC 2.69 L (3.80-5.40) m/uL Hgb 8.3 L D (11.4-16.0) gm/dL Hct 28.2 L (34.0-46.0) % MCV 104.7 H (80.0-100.0) fL MCHC 29.5 L (31.0-37.0) g/dL RDW 18.8 H (11.5-15.5) % Plt Count 44 L D (150-450) k/uL Lymphocytes # (Manual) 0.59 L (1.0-4.8) k/uL Myelocytes # (Manual) 0.06 H (0) k/uL Macrocytosis Marked A Potassium 3.1 L (3.5-5.1) mmol/L Chloride 109 H (98-107) mmol/L BUN 30 H (7-17) mg/dL Glucose 156 H (74-99) mg/dL Calcium 7.6 L (8.4-10.2) mg/dL Magnesium 1.5 L (1.6-2.3) mg/dL Microbiology - Last 24 Hours (Table) 08/16/19 20:45 Gram Stain - Preliminary Sputum Sputum Culture - Preliminary Gram Neg Bacilli 08/15/19 21:10 Blood Culture - Preliminary Blood No Growth after 48 hours Assessment and Plan Assessment: Hypomagnesemia Bilateral basal pneumonia Acute COPD exacerbation Tracheobronchitis Altered mental status metabolic related to multifactorial processes including pneumonia possible ECF/and Sirs-like process with baseline dementia and Alzheimer's disease Dementia and Alzheimer's disease Plan: Continue broad-spectrum antibiotics gentle rehydration, continue to replace electrolytes as per protocol, continue supportive care follow clinical course closely further recommendations pending plan of care as per clinical response of patient Time with Patient: Greater than 30
[2019-08-18 15:38] LABS: Potassium 4.2 mmol/L (3.5-5.1)
--- NOTE | 2019-08-20 07:07 | CDI ---
Documentation Clarification Form Date: 08/20/19 From: Prabha Winston Phone: If you have a question about this query, please contact Jami Buckley, Level Vial Inspector at [phone] between 8am and 5pm. Admit Date: 08/15/19 Discharge Date: 08/18/19 Patient Name: ARELY CASAREZ Visit Number: [id number] ATTENTION: The Clinical Documentation Specialists (CDI) and [facility] Coding Staff appreciate your assistance in clarifying documentation. Please respond to the clarification below the line at the bottom and electronically sign. The CDI & [facility] Coding staff will review the response and follow-up if needed. Please note: Queries are made part of the Legal Health Record. If you have any questions, please contact the author of this message via ITS. Dear Dr. Bebeto Davila, Pneumonia was documented in ED note, Dr Back's consult and the 3 progress notes. History/Risk Factors: COPD, HTN w chronic CHF exacerbation diastolic dysfunction, severe PCM, ISAEL, Alzheimer's dementia Clinical Indicators: AMS, SOB & cough per consult. 08/14 Vital signs: T-97.6, P-72, R-18, BP-157/82, O2 sat-91 WBC/Left shift: 08/14-11.4/10.94, 08/15-14.1/11.90 Sputum Culture: Pseudomonas aeruginosa 08/14 Chest X-ray: Pulmonary interstitial edema and small pleural effusions unchanged. I would consider possibilities of mild congestive heart failure and interstitial pneumonia. Treatment: IV Rocephin, IV Azithromycin, IV fluids, Nebulizer O2-standby In order to capture the severity of condition, please clarify if the condition signifies and you are treating for: Pneumonia Bacterial Pneumonia, due to Pseudomonas aeruginosa Viral Pneumonia, specify casual organism (if known) Other, please specify Unable to determine MTDD
--- NOTE | 2019-08-20 07:24 | CDI ---
Documentation Clarification Form Date: 08/20/19 From: Prabha Winston Phone: If you have a question about this query, please contact Jami Buckley, Car Lubricator at [phone] between 8am and 5pm. Admit Date: 08/15/19 Discharge Date: 08/18/19 Patient Name: ARELY CASAREZ Visit Number: [id number] ATTENTION: The Clinical Documentation Specialists (CDI) and [facility] Coding Staff appreciate your assistance in clarifying documentation. Please respond to the clarification below the line at the bottom and electronically sign. The CDI & [facility] Coding staff will review the response and follow-up if needed. Please note: Queries are made part of the Legal Health Record. If you have any questions, please contact the author of this message via ITS. Dear Dr. Bebeto Davila, Conflicting documentation has been found in the medical record: Per ED note states AMS from delirium due to general medical condition. Per your 08/16 PN- "This is a 74-year-old female admitted with acute metabolic encephalopathy, ..." and "Acute metabolic encephalopathy, multifactorial, secondary to the above as well as dementia possibly Alzheimer's dementia." History/Risk Factors: Pneumonia, COPD, HTN w chronic CHF exacerbation diastolic dysfunction, severe PCM, ISAEL, Alzheimer's dementia 08/14 Vital signs: T-97.6, P-72, R-18, BP-157/82, O2 sat-[address]: Cerebral atrophy.There is evidence of some chronic white matter ischemia right posterior frontal lobe. No acute intracranial abnormality. Treatment: Treated for pneumonia w IV antibiotics In your opinion, what is the most clinically appropriate diagnosis for this patient? Delirium due to general medical condition Metabolic encephalopathy Alzheimer's dementia Other condition (please specify) Unable to determine (no explanation for clinical findings) MTDD
--- NOTE | 2019-08-21 17:56 | DS ---
DISCHARGE SUMMARY ADDENDUM TO DISCHARGE SUMMARY: Bacterial and viral pneumonia; organism unsure. MMODL / IJN: [id number] /
--- NOTE | 2019-08-28 09:38 | CDI ---
Documentation Clarification Form Date: 08/20/19 From: Prabha Winston Phone: If you have a question about this query, please contact Jami Buckley, Accounting Machine Mechanic at [phone] between 8am and 5pm. Admit Date: 08/15/19 Discharge Date: 08/18/19 Patient Name: ARELY CASAREZ Visit Number: [id number] ATTENTION: The Clinical Documentation Specialists (CDI) and [facility] Coding Staff appreciate your assistance in clarifying documentation. Please respond to the clarification below the line at the bottom and electronically sign. The CDI & [facility] Coding staff will review the response and follow-up if needed. Please note: Queries are made part of the Legal Health Record. If you have any questions, please contact the author of this message via ITS. Dear Dr. Bebeto Davila, Conflicting documentation has been found in the medical record: Per ED note states AMS from delirium due to general medical condition. Per your 08/16 PN- "This is a 74-year-old female admitted with acute metabolic encephalopathy, ..." and "Acute metabolic encephalopathy, multifactorial, secondary to the above as well as dementia possibly Alzheimer's dementia." History/Risk Factors: Pneumonia, COPD, HTN w chronic CHF exacerbation diastolic dysfunction, severe PCM, ISAEL, Alzheimer's dementia 08/14 Vital signs: T-97.6, P-72, R-18, BP-157/82, O2 sat-[address]: Cerebral atrophy.There is evidence of some chronic white matter ischemia right posterior frontal lobe. No acute intracranial abnormality. Treatment: Treated for pneumonia w IV antibiotics In your opinion, what is the most clinically appropriate diagnosis for this patient? Delirium due to general medical condition Metabolic encephalopathy Alzheimer's dementia Other condition (please specify) Unable to determine (no explanation for clinical findings) MTDD
--- NOTE | 2019-08-29 10:37 | DS ---
DISCHARGE SUMMARY Please add metabolic encephalopathy. MMODL / IJN: [id number] /
--- NOTE | 2019-08-31 03:42 | DS ---
DISCHARGE SUMMARY DATE OF ADMISSION: 08/15/2019 DATE OF DISCHARGE: 08/18/2019 DISCHARGE MEDICATIONS: 1. Ferrous sulfate 325 daily b.i.d. 2. Prilosec 40 mg daily. 3. Synthroid 25 mcg daily. 4. Aricept 10 mg daily. 5. Namenda 10 mg b.i.d. 6. Lexapro 10 mg daily. 7. Zyrtec 10 mg daily. 8. Neurontin 800 t.i.d. 9. Acetaminophen 650 q.6 p.r.n. 10.DuoNeb q.i.d. 11.Requip 0.25 at bedtime. 12.Phenergan syrup p.r.n. CONDITION: Stable. PROGNOSIS: Guarded. AMBULATE: As tolerated. This 74-year-old white female came with community-acquired pneumonia, treated with IV Rocephin and azithromycin for a couple days. She improved. She is going to be sent home on Ceftin 500 b.i.d. for 5 days, Zithromax 500 mg daily for 5 days. Continue with Lasix 20 daily, prednisone taper, Symbicort 160/4.5 two puffs b.i.d., potassium chloride 20 mEq daily, Lasix 40 mg daily, Zestril 20 mg daily, Nicotine patch 14 mg daily. The patient continued to improve. Hemoglobin stabilized over 9.3 on discharge. Her breathing improved at which time she was sent home in stable condition, follow up as outpatient. MMANGE / RUTHN: [id number] /
== END 2019-08-18 16:36 | disposition home health service (06) | DRG 193 ==
LOC: EC 20:49 → 4SSUR 23:14
PROVIDERS: ADMIT Family Medicine; ATTEND Family Medicine
DX: J15.9 Unspecified bacterial pneumonia (principal); I50.33 Acute on chronic diastolic (congestive) heart failure; E43 Unspecified severe protein-calorie malnutrition; G93.41 Metabolic encephalopathy; J44.0 Chronic obstructive pulmonary disease with (acute) lower respiratory infection; N17.9 Acute kidney failure, unspecified; I85.00 Esophageal varices without bleeding; J44.1 Chronic obstructive pulmonary disease with (acute) exacerbation; J12.9 Viral pneumonia, unspecified; G30.9 Alzheimer's disease, unspecified; F02.80 Dementia in other diseases classified elsewhere, unspecified severity, without behavioral disturbance, psychotic disturbance, mood disturbance, and anxiety; D63.8 Anemia in other chronic diseases classified elsewhere; I11.0 Hypertensive heart disease with heart failure; E86.0 Dehydration; Z20.828 Contact with and (suspected) exposure to other viral communicable diseases; E83.42 Hypomagnesemia; G25.81 Restless legs syndrome; G62.9 Polyneuropathy, unspecified; E03.9 Hypothyroidism, unspecified; E78.5 Hyperlipidemia, unspecified; K21.9 Gastro-esophageal reflux disease without esophagitis; M19.90 Unspecified osteoarthritis, unspecified site; F32.9 Major depressive disorder, single episode, unspecified; F41.9 Anxiety disorder, unspecified; R32 Unspecified urinary incontinence; Z68.24 Body mass index [BMI] 24.0-24.9, adult; F17.210 Nicotine dependence, cigarettes, uncomplicated; Z71.6 Tobacco abuse counseling; Z79.51 Long term (current) use of inhaled steroids; Z79.890 Hormone replacement therapy; Z79.891 Long term (current) use of opiate analgesic; Z79.899 Other long term (current) drug therapy; Z86.73 Personal history of transient ischemic attack (TIA), and cerebral infarction without residual deficits; Z85.42 Personal history of malignant neoplasm of other parts of uterus; Z92.21 Personal history of antineoplastic chemotherapy; Z90.710 Acquired absence of both cervix and uterus; Z87.440 Personal history of urinary (tract) infections; Z87.19 Personal history of other diseases of the digestive system; Z98.890 Other specified postprocedural states; Z98.42 Cataract extraction status, left eye; Z98.41 Cataract extraction status, right eye; Z80.9 Family history of malignant neoplasm, unspecified
CPT/HCPCS: 36415; 51701; 70450; 71046; 80048; 80053; 81001; 82272; 82550; 83605; 83735; 84132; 85025; 87040; 87070; 87077; 87186; 87205; 87635; 93005; 94640; 96365; 96375; 99285

== ENCOUNTER 2019-09-01 13:12 | Inpatient (IN) | payer MEDICARE ==
--- NOTE | 2019-09-01 13:46 | ED ---
General Adult HPI - General Chief complaint: Weakness Stated complaint: weakness Time Seen by Provider: 09/01/19 13:15 Source: patient, EMS, RN notes reviewed Mode of arrival: EMS Limitations: no limitations - History of Present Illness Initial comments: Patient is a pleasant 74-year-old female presenting to the emergency department with weakness. Onset of symptoms was noticed yesterday morning. Last known well was evening prior to that, last known well was approximately 40 hours. Patient states her legs are weak. Patient states they were mild yesterday and worse today. Patient states her left leg is worse than her right leg. No trauma. No back pain. No confusion or speech problems. No upper extremity involvement. No history of similar symptoms previously. - Related Data Home Medications Medication Instructions Recorded Confirmed Ferrous Sulfate [Feosol] 325 mg PO BID 10/29/16 08/16/19 Donepezil [Aricept] 10 mg PO HS 11/07/17 08/16/19 Levothyroxine Sodium [Synthroid] 25 mcg PO DAILY 11/07/17 08/16/19 Omeprazole [PriLOSEC] 40 mg PO DAILY 11/07/17 08/16/19 Cetirizine HCl [Zyrtec] 10 mg PO DAILY 01/14/19 08/16/19 Escitalopram [Lexapro] 10 mg PO DAILY 01/14/19 08/16/19 Gabapentin [Neurontin] 800 mg PO TID 01/14/19 08/16/19 Memantine [Namenda] 10 mg PO BID 01/14/19 08/16/19 Acetaminophen Tab [Tylenol] 650 mg PO Q6H PRN 05/01/19 08/16/19 Ipratropium-Albuterol Nebulize 3 ml INHALATION RT-QID PRN 05/01/19 08/16/19 [Duoneb 0.5 mg-3 mg/3 ml Soln] Baclofen 5 mg PO TID 06/28/19 08/16/19 Promethazine 6.25MG/5Ml [Phenergan 6.25 mg PO HS PRN 06/28/19 08/16/19 Syrup] SILVER sulfADIAZINE Cream 1 applic TOPICAL BID 06/28/19 08/16/19 [Silvadene 1% Cream] rOPINIRole HCL [Requip] 0.25 mg PO HS 06/28/19 08/16/19 traMADol HCl [Ultram] 50 mg PO BID PRN 07/21/19 08/16/19 Loperamide [Imodium] 2 mg PO QAM PRN 08/10/19 08/16/19 Furosemide [Lasix] 20 mg PO HS 08/16/19 08/16/19 predniSONE See Taper PO DAILY 08/16/19 08/16/19 Previous Rx's Medication Instructions Recorded Propranolol [Inderal] 10 mg PO TID #90 tab 06/30/19 Budesonide-Formot 160-4.5 Mcg 2 puff INHALATION RT-BID #1 inh 08/13/19 [Symbicort 160-4.5 Mcg Inhaler] Furosemide [Lasix] 40 mg PO DAILY #90 tab 08/13/19 Lisinopril [Zestril] 20 mg PO DAILY #90 tab 08/13/19 Nicotine 14Mg/24Hr Patch [Habitrol] 1 patch TRANSDERM DAILY #30 patch 08/13/19 Potassium Chloride ER [K-Dur 20] 20 meq PO DAILY #30 tab 08/13/19 Azithromycin [Zithromax] 500 mg PO DAILY #5 tab 08/18/19 Cefuroxime Axetil [Ceftin] 500 mg PO BID 5 Days #10 tab 08/18/19 Allergies Allergy/AdvReac Type Severity Reaction Status Date / Time No Known Allergies Allergy Verified 08/16/19 08:54 Review of Systems ROS Statement: Those systems with pertinent positive or pertinent negative responses have been documented in the HPI. ROS Other: All systems not noted in ROS Statement are negative. Constitutional: Denies: fever, chills Eyes: Denies: eye pain ENT: Denies: ear pain Respiratory: Denies: cough, dyspnea Cardiovascular: Denies: chest pain Endocrine: Denies: fatigue Gastrointestinal: Denies: abdominal pain Genitourinary: Denies: urgency, dysuria Musculoskeletal: Denies: back pain Skin: Denies: rash Neurological: Reports: as per HPI, weakness. Denies: headache, paresthesias, confusion Past Medical History Past Medical History: Atrial Fibrillation, Cancer, Heart Failure, COPD, CVA/TIA, GERD/Reflux, GI Bleed, Hyperlipidemia, Hypertension, Osteoarthritis (OA) Additional Past Medical History / Comment(s): hx. uterine cancer, chemo 6 years ago, TIA several yrs. ago-forgetful, neuropathy feet & legs & hands, ANEMIA History of Any Multi-Drug Resistant Organisms: None Reported Past Surgical History: Hysterectomy, Tonsillectomy Additional Past Surgical History / Comment(s): COLONOSCOPY. EGD. BILAT CATARACTS REMOVED Past Anesthesia/Blood Transfusion Reactions: No Reported Reaction Past Psychological History: Anxiety, Depression Smoking Status: Current every day smoker Past Alcohol Use History: None Reported Past Drug Use History: None Reported - Past Family History Mother Family Medical History: Cancer Father History Unknown: Yes Family Medical History: Cancer Brother(s) Family Medical History: Cancer General Exam Limitations: no limitations General appearance: alert, in no apparent distress Head exam: Present: normocephalic Eye exam: Present: normal appearance, PERRL, EOMI ENT exam: Present: normal oropharynx Neck exam: Present: normal inspection Respiratory exam: Present: normal lung sounds bilaterally Cardiovascular Exam: Present: regular rate, normal rhythm Expanded Peripheral pulses: 2+: Radial (R), Radial (L), Dorsalis Pedis (R), Dorsalis Pedis (L) GI/Abdominal exam: Present: soft. Absent: tenderness Extremities exam: Present: normal inspection, full ROM, other (Left rate toe tenderness. Patient states she kicked it multiple days ago and considers it may be broken) Neurological exam: Present: alert, oriented X3, CN II-XII intact Expanded Neurological exam: Present: protecting the airway Patient oriented to: Present: person, place, time Speech: Present: fluid speech Cranial nerves: EOM's Intact: Normal Sensory exam: Upper Extremity Light Touch: Normal, Lower Extremity Light Touch: Normal Motor strength exam: RUE: 5, LUE: 5, RLE: 4, LLE: 3 Eye Response: (4) open spontaneously Motor Response: (6) obeys commands Verbal Response: (5) oriented Psychiatric exam: Present: normal affect, normal mood Skin exam: Present: normal color Course Vital Signs 09/01/19 09/01/19 09/01/19 13:16 13:23 14:41 Temperature 97.8 F Pulse Rate 81 66 Respiratory 18 18 18 Rate Blood Pressure 121/93 114/95 O2 Sat by Pulse 94 L 97 Oximetry - Reevaluation(s) Reevaluation #1: 09/01/19 14:02 Patient states she arty had x-rays on her toe and they were negative. EKG Findings - EKG Comments: EKG Findings:: Normal sinus rhythm 78. WA 140. QRS 80. QT 392. QTC 446. Normal axis. Normal QRS. No acute ST change. Medical Decision Making - Medical Decision Making Patient was updated on results and plan. Case discussed with Dr. Davila, who will admit his patient with GI consult. Patient was transfused 1 unit of packed red blood cells. - Lab Data Result diagrams: 09/01/19 13:30 09/01/19 13:30 Lab Results 09/01/19 09/01/19 09/01/19 Range/Units 13:30 13:30 13:30 WBC 8.6 (3.8-10.6) k/uL RBC 2.05 L (3.80-5.40) m/uL Hgb 6.4 L* D (11.4-16.0) gm/dL Hct 21.1 L (34.0-46.0) % MCV 102.6 H (80.0-100.0) fL MCH 31.1 (25.0-35.0) pg MCHC 30.3 L (31.0-37.0) g/dL RDW 19.1 H (11.5-15.5) % Plt Count 67 L D (150-450) k/uL Neutrophils % (Manual) 93 % Lymphocytes % (Manual) 5 % Monocytes % (Manual) 1 % Eosinophils % (Manual) 1 % Neutrophils # (Manual) 8.00 H (1.3-7.7) k/uL Lymphocytes # (Manual) 0.43 L (1.0-4.8) k/uL Monocytes # (Manual) 0.09 (0-1.0) k/uL Eosinophils # (Manual) 0.09 (0-0.7) k/uL Nucleated RBCs 0 (0-0) /100 WBC Manual Slide Review Performed Hypochromasia Marked Poikilocytosis (manual Present Anisocytosis Slight Macrocytosis Moderate Target Cells Present PT 13.3 H (9.0-12.0) sec INR 1.3 H (<1.2) APTT 27.2 (22.0-30.0) sec Sodium 134 L (137-145) mmol/L Potassium 4.5 (3.5-5.1) mmol/L Chloride 102 (98-107) mmol/L Carbon Dioxide 26 (22-30) mmol/L Anion Gap 6 mmol/L BUN 44 H (7-17) mg/dL Creatinine 1.51 H (0.52-1.04) mg/dL Est GFR (CKD-EPI)AfAm 39 (>60 ml/min/1.73 sqM) Est GFR (CKD-EPI)NonAf 33 (>60 ml/min/1.73 sqM) Glucose 119 H (74-99) mg/dL Calcium 7.9 L (8.4-10.2) mg/dL Total Bilirubin 0.9 (0.2-1.3) mg/dL AST 27 (14-36) U/L ALT 17 (4-34) U/L Alkaline Phosphatase 87 (38-126) U/L Total Protein 6.2 L (6.3-8.2) g/dL Albumin 2.3 L (3.5-5.0) g/dL Stool Occult Blood (Negative) 09/01/19 Range/Units 14:00 WBC (3.8-10.6) k/uL RBC (3.80-5.40) m/uL Hgb (11.4-16.0) gm/dL Hct (34.0-46.0) % MCV (80.0-100.0) fL MCH (25.0-35.0) pg MCHC (31.0-37.0) g/dL RDW (11.5-15.5) % Plt Count (150-450) k/uL Neutrophils % (Manual) % Lymphocytes % (Manual) % Monocytes % (Manual) % Eosinophils % (Manual) % Neutrophils # (Manual) (1.3-7.7) k/uL Lymphocytes # (Manual) (1.0-4.8) k/uL Monocytes # (Manual) (0-1.0) k/uL Eosinophils # (Manual) (0-0.7) k/uL Nucleated RBCs (0-0) /100 WBC Manual Slide Review Hypochromasia Poikilocytosis (manual Anisocytosis Macrocytosis Target Cells PT (9.0-12.0) sec INR (<1.2) APTT (22.0-30.0) sec Sodium (137-145) mmol/L Potassium (3.5-5.1) mmol/L Chloride (98-107) mmol/L Carbon Dioxide (22-30) mmol/L Anion Gap mmol/L BUN (7-17) mg/dL Creatinine (0.52-1.04) mg/dL Est GFR (CKD-EPI)AfAm (>60 ml/min/1.73 sqM) Est GFR (CKD-EPI)NonAf (>60 ml/min/1.73 sqM) Glucose (74-99) mg/dL Calcium (8.4-10.2) mg/dL Total Bilirubin (0.2-1.3) mg/dL AST (14-36) U/L ALT (4-34) U/L Alkaline Phosphatase (38-126) U/L Total Protein (6.3-8.2) g/dL Albumin (3.5-5.0) g/dL Stool Occult Blood Positive H (Negative) - Radiology Data Radiology results: report reviewed (Computed tomography scan of the brain shows atrophy and chronic changes), image reviewed (Chest x-ray shows diffuse interstitial lung markings.) Critical Care Time Critical Care Time: Yes Total Critical Care Time: 32 Disposition Clinical Impression: GI hemorrhage, Leg weakness Disposition: ADMITTED IP TO THIS [facility] Is patient prescribed a controlled substance at d/c from ED?: No Referrals: Bebeto Davila MD [Primary Care Provider] - 1-2 days Decision Time: 15:09
[2019-09-01 13:48] LABS: Anisocytosis Slight; HCT 21.1 % (34.0-46.0); Hypochromasia Marked; MCH 31.1 pg (25.0-35.0); MCHC 30.3 g/dL (31.0-37.0); MCV 102.6 fL (80.0-100.0); Macrocytosis Moderate; RBC 2.05 m/uL (3.80-5.40); RDW 19.1 % (11.5-15.5); WBC 8.6 k/uL (3.8-10.6)
[2019-09-01 13:57] LABS: HGB 6.4 gm/dL (11.4-16.0)
[2019-09-01 14:04] LABS: Albumin 2.3 g/dL (3.5-5.0); Calcium 7.9 mg/dL (8.4-10.2); Potassium 4.5 mmol/L (3.5-5.1); Total Bilirubin 0.9 mg/dL (0.2-1.3); Total Protein 6.2 g/dL (6.3-8.2)
[2019-09-01] MEDS ORDERED: PANTOPRAZOLE 40 MG/10 ML VIAL IVP STA (14:13)
[2019-09-01] MEDS ORDERED: NALOXONE 0.4 MG/ML 1 ML VIAL IV PRN (14:15)
[2019-09-01 14:21] LABS: Eosinophils # (M) 0.09 k/uL (0-0.7); Lymphocytes # (M) 0.43 k/uL (1.0-4.8); Monocytes # (M) 0.09 k/uL (0-1.0); Neutrophils % (M) 93 %; Nucleated Red Blood Cells 0 /100 WBC (0-0); Platelet Count 67 k/uL (150-450); Poikilocytosis (M) Present; Total Cells Counted 100
[2019-09-01 14:22] LABS: Target Cells Present
[2019-09-01 14:25] LABS: INR 1.3 (<1.2); Partial Thromboplastin Time 27.2 sec (22.0-30.0); Prothrombin Time 13.3 sec (9.0-12.0)
--- NOTE | 2019-09-01 14:25 | XR ---
EXAMINATION TYPE: XR chest 2V DATE OF EXAM: 09/01/2019 COMPARISON: 08/16/2019 INDICATION: Altered mental status TECHNIQUE: Frontal and lateral views of the chest are obtained. FINDINGS: The heart size is upper limits of normal. The pulmonary vasculature is prominent. There is diffuse increased lung markings diffusely. This is worsening from comparison. Port is present on the right with the tip in the proximal right atrium. EKG leads overlie the chest.. IMPRESSION: 1. Diffuse increased lung markings. Correlate for pulmonary edema and congestive heart failure. Infec tious etiologies could be considered in the proper clinical setting.
--- NOTE | 2019-09-01 14:34 | CT ---
EXAMINATION TYPE: CT brain wo con DATE OF EXAM: 09/01/2019 COMPARISON: 08/19/2019 INDICATION: altered mental status DLP: 1095.4 mGycm, Automated exposure control for dose reduction was used. CONTRAST: None CT of the brain is performed utilizing 3 mm thick sections through the posterior fossa and 3 mm thick sections through the remaining calvarium. Study is performed within 24 hours of arrival to the hosp ital. No abnormal hyperdensity is present to suggest an acute intracranial hemorrhage. No mass lesion is evident. No acute infarcts are evident. There is some mild subcortical white matter changes, most likely on th e basis of chronic white matter ischemic change. These were present previously. Ventricles and sulci are mildly prominent for the patient age. Paranasal sinuses and mastoid air cells within the [id number] are clear. IMPRESSIONS: 1. Atrophy with some mild chronic appearing subcortical white matter changes present previously.
[2019-09-01] MEDS: SODIUM CHLORIDE 0.9% 1,000 ML IV SCH (14:39)
[2019-09-01] MEDS ORDERED: traMADol 50 MG TAB PO PRN (16:49)
--- NOTE | 2019-09-01 17:32 | HP ---
HISTORY AND PHYSICAL This patient is a 74-year-old white female with a GI bleed, Hemoccult-positive stool, hemoglobin 6.2, admitted with generalized weakness, weakness in the legs and generalized body worsening over the past 2-3 days. Her left leg is worse than her right leg. No trauma. No back pain. She was found to be severely anemic. She has a history of esophageal varices with banding x5. She has Hemoccult-positive stool. She is going to need re-banding and blood transfusions. HOME MEDICINES: 1. Ferrous sulfate 325 b.i.d. 2. Aricept 10 mg daily. 3. Synthroid 25 mcg daily. 4. Prilosec 40 mg daily. 5. Zyrtec 10 mg daily. 6. Lexapro 10 mg daily. 7. Neurontin 800 t.i.d. 8. Namenda 10 mg b.i.d. 9. DuoNeb q.i.d. 10.Baclofen 5 mg t.i.d. 11.Requip 0.25 at night. 12.Tramadol 50 b.i.d. 13.Lasix 20 mg daily. 14.Prednisone taper. ALLERGIES: NO KNOWN DRUG ALLERGIES. REVIEW OF SYSTEMS: Fourteen-point review of systems negative except for mentioned in HPI. MEDICAL HISTORY: History of atrial fibrillation, heart failure, COPD, CVA, TIA, GERD, GI bleed, dyslipidemia, hypertension, osteoarthritis, history of uterine cancer, neuropathy of the legs, anemia, colonoscopy, EGD, bilateral cataracts removed, anxiety, depression. Current everyday smoker. No alcohol. No drugs. FAMILY HISTORY: Mother with cancer. Father with cancer. Brother with cancer. PHYSICAL EXAMINATION: Temperature 97.8, pulse 66, respiratory rate 16-20, pulse 66 to 81, blood pressure is 114 to 121 over 93 to 95. Oxygenation 94% to 97% on room air. CARDIOVASCULAR: S1, S2. LUNGS: Clear. GI: Soft. Increased bowel sounds. HEMATOLOGY: Negative Homans. PSYCH: Fair mood and affect. INTEGUMENT: She looked pallid skin. ASSESSMENT: 1. Gastrointestinal bleed. 2. Severe anemia. 3. Weakness secondary to above. 4. History of esophageal varices. 5. History of cirrhosis. 6. Acute on chronic renal insufficiency. 7. Hyponatremia. 8. Thrombocytopenia. Prognosis extremely guarded. Blood transfusions ordered. Consult Hematology and GI physician. Prognosis extremely guarded. MMODL / IJN: [id number] /
--- NOTE | 2019-09-01 18:27 | P.CNNES ---
History of Present Illness Consult date: 09/01/19 Requesting physician: Torey Resendiz Reason for Consult: Weakness History of Present Illness: Patient is a 74-year-old female came to the ER for evaluation of weakness. Patient states she has history of stomach cancer 7 years ago. She underwent chemotherapy at that time. She was able to tolerate only 2 sessions. She de veloped peripheral neuropathy. She subsequently underwent 21 sessions of radiation therapy. Patient states her cancer is in remission. She however has developed peripheral neuropathy since then. Patient states that her leg weakness has been present for couple years, although she mentioned to the ER that leg weakness started since last 1-2 days. Patient feels her legs are weak. Patient feels her legs were mildly weak yesterday and worse today. Left leg is worse than right. No trauma, no back pain. No confusion or speech problems. Patient's blood test shows WBC 8.6 hemoglobin 6.4, platelets 67. PTT is 27.2, INR 1.3, sodium 134 potassium 4.5 BUN 44, creatinine 1.51. Liver functions normal, stool occult blood positive. On reviewing home medication, patient does take prednisone 10 mg daily but does not take any antiplatelet or anticoagulants. Patient's vitamin B12 level was normal 876 on 08/12/2019, but MMA level was significantly elevated 0.64. RBC folate and thyroid functions normal. CT head showed atrophy with mild chronic-appearing subcortical white matter changes, present previously. EKG shows normal sinus rhythm. Chest x-ray showed diffuse increase lung markings. Correlate for pulmonary edema and congestive heart failure. Infectious etiologies could be considered in the proper clinical setting. Patient had a 2-D echo on 08/10/2019, showed sinus rhythm, mild concentric LVH, systolic function between 55-60%. Left atrium was severely dilated. Aortic valve is trileaflet in is mildly thickened. Mild aortic valve sclerosis. Mild aortic regurgitation. Patient denies diabetes or alcohol use. She has smoked 1 pack per day for last 61 years. Still smokes. Review of Systems Pain in the left big toe from stubbing and bruising the toe. Complains of cough, phlegm, hoarseness. Denies diplopia, loss of vision. Patient is hard of hearing. Denies chest pain abdominal pain nausea vomiting diarrhea. Denies neck or back pain. All other review of systems unremarkable. Past Medical History Past Medical History: Atrial Fibrillation, Cancer, Heart Failure, COPD, CVA/TIA, GERD/Reflux, GI Bleed, Hyperlipidemia, Hypertension, Osteoarthritis (OA) Additional Past Medical History / Comment(s): hx. uterine cancer, chemo 6 years ago, TIA several yrs. ago-forgetful, neuropathy feet & legs & hands, ANEMIA History of Any Multi-Drug Resistant Organisms: None Reported Past Surgical History: Hysterectomy, Tonsillectomy Additional Past Surgical History / Comment(s): COLONOSCOPY. EGD. BILAT CATARACTS REMOVED Past Anesthesia/Blood Transfusion Reactions: No Reported Reaction Past Psychological History: Anxiety, Depression Smoking Status: Current every day smoker Past Alcohol Use History: None Reported Past Drug Use History: None Reported - Past Family History Mother Family Medical History: Cancer Father History Unknown: Yes Family Medical History: Cancer Brother(s) Family Medical History: Cancer Medications and Allergies Home Medications Medication Instructions Recorded Confirmed Type Ferrous Sulfate [Feosol] 325 mg PO BID 10/29/16 08/16/19 History Donepezil [Aricept] 10 mg PO HS 11/07/17 08/16/19 History Levothyroxine Sodium [Synthroid] 25 mcg PO DAILY 11/07/17 08/16/19 History Omeprazole [PriLOSEC] 40 mg PO DAILY 11/07/17 08/16/19 History Cetirizine HCl [Zyrtec] 10 mg PO DAILY 01/14/19 08/16/19 History Escitalopram [Lexapro] 10 mg PO DAILY 01/14/19 08/16/19 History Gabapentin [Neurontin] 800 mg PO TID 01/14/19 08/16/19 History Memantine [Namenda] 10 mg PO BID 01/14/19 08/16/19 History Acetaminophen Tab [Tylenol] 650 mg PO Q6H PRN 05/01/19 08/16/19 History Ipratropium-Albuterol Nebulize 3 ml INHALATION RT-QID PRN 05/01/19 08/16/19 History [Duoneb 0.5 mg-3 mg/3 ml Soln] Baclofen 5 mg PO TID 06/28/19 08/16/19 History Promethazine 6.25MG/5Ml [Phenergan 6.25 mg PO HS PRN 06/28/19 08/16/19 History Syrup] SILVER sulfADIAZINE Cream 1 applic TOPICAL BID 06/28/19 08/16/19 History [Silvadene 1% Cream] rOPINIRole HCL [Requip] 0.25 mg PO HS 06/28/19 08/16/19 History Propranolol [Inderal] 10 mg PO TID #90 tab 06/30/19 08/16/19 Rx traMADol HCl [Ultram] 50 mg PO BID PRN 07/21/19 08/16/19 History Loperamide [Imodium] 2 mg PO QAM PRN 08/10/19 08/16/19 History Budesonide-Formot 160-4.5 Mcg 2 puff INHALATION RT-BID #1 inh 08/13/19 08/16/19 Rx [Symbicort 160-4.5 Mcg Inhaler] Furosemide [Lasix] 40 mg PO DAILY #90 tab 08/13/19 08/16/19 Rx Lisinopril [Zestril] 20 mg PO DAILY #90 tab 08/13/19 08/16/19 Rx Nicotine 14Mg/24Hr Patch [Habitrol] 1 patch TRANSDERM DAILY #30 patch 08/13/19 08/16/19 Rx Potassium Chloride ER [K-Dur 20] 20 meq PO DAILY #30 tab 08/13/19 08/16/19 Rx Furosemide [Lasix] 20 mg PO HS 08/16/19 08/16/19 History predniSONE See Taper PO DAILY 08/16/19 08/16/19 History Azithromycin [Zithromax] 500 mg PO DAILY #5 tab 08/18/19 Rx Cefuroxime Axetil [Ceftin] 500 mg PO BID 5 Days #10 tab 08/18/19 Rx Allergies Allergy/AdvReac Type Severity Reaction Status Date / Time No Known Allergies Allergy Verified 09/01/19 17:13 Physical Examination - Vital Signs Vital Signs: Vital Signs Temp Pulse Resp BP Pulse Ox 09/01/19 16:19 97.3 F L 67 16 116/70 97 09/01/19 14:41 66 18 114/95 97 09/01/19 13:23 18 09/01/19 13:16 97.8 F 81 18 121/93 94 L Intake and Output 09/01/19 09/01/19 09/01/19 06:59 14:59 22:59 Other: Weight 80.739 kg On examination patient is an elderly female, laying comfortably in the bed. Patient is alert and awake fairly well oriented. Speech is hoarse with no aphasia or dysarthria. Patient is hard of hearing, and also has slow m entation. On cranial nerve examination, pupils are round and reactive to light, visual [place] are full on confrontation. Extraocular muscles are intact. Face is symmetric, tongue protrudes the midline. Palatal elevation and sensation normal. On muscle strength testing there is no pronator drift and the strength is normal in both upper limbs. Patient's strength in the lower limbs is hip flexion 4+ on the right, 5-left. Knee extension are normal. Ankle dorsiflexion 5-bilaterally. Toe extension 5-on the right, cannot check on her left because of pain in the toe. His are 1 in the upper limbs, 1+ to 2 in the knees, 1 at ankles and plantars are flat. Sensory touch is equal. No ataxia for [id number] testing. Patient has significant myoclonic jerks of outstretched hands. Tone and bulk of muscles normal. She does have peripheral edema. No obvious bruit, S1 and S2 audible. Abdomen soft nontender. Results - Laboratory Findings CBC and BMP: 09/01/19 13:30 09/01/19 13:30 Abnormal Lab Findings: Abnormal Labs 09/01/19 09/01/19 09/01/19 13:30 13:30 13:30 RBC 2.05 L Hgb 6.4 L* D Hct 21.1 L MCV 102.6 H MCHC 30.3 L RDW 19.1 H Plt Count 67 L D Neutrophils # (Manual) 8.00 H Lymphocytes # (Manual) 0.43 L PT 13.3 H INR 1.3 H Sodium 134 L BUN 44 H Creatinine 1.51 H Glucose 119 H Calcium 7.9 L Total Protein 6.2 L Albumin 2.3 L Stool Occult Blood Crossmatch 09/01/19 09/01/19 13:30 14:00 RBC Hgb Hct MCV MCHC RDW Plt Count Neutrophils # (Manual) Lymphocytes # (Manual) PT INR Sodium BUN Creatinine Glucose Calcium Total Protein Albumin Stool Occult Blood Positive H Crossmatch See Detail Assessment and Plan Assessment: * 74-year-old female admitted with subjective weakness of lower extremities. Patient does have history of peripheral neuropathy related to chemotherapy that she received for uterine cancer 7 years ago. Patient's recent workup revealed evidence of possible B12 deficiency, as her methylmalonic acid was significantly elevated 0.64, with a normal vitamin B12 level of 876. * Significant myoclonic jerks due to anemia, COPD, mild renal insufficiency and metabolic dysfunction * Severe anemia with positive occult blood in stool. * Tobacco use. Plan: * Patient is receiving blood transfusion now. * We will also start B12 injections daily. * Patient may need EMG and nerve conductions of bilateral lower extremities as an outpatient. * We will follow patient clinically.
[2019-09-01] MEDS: SYMBICORT 160-4.5 MCG INHALER INHALATION SCH (20:15)
[2019-09-01] MEDS: FUROSEMIDE 20 MG TAB PO SCH (21:30)
[2019-09-01] MEDS: DONEPEZIL 10 MG TAB PO SCH (21:30)
[2019-09-01] MEDS: PROPRANOLOL 10 MG TAB PO SCH (21:31)
[2019-09-01] MEDS: MEMANTINE 10 MG TAB PO SCH (21:31)
[2019-09-01] MEDS: GABAPENTIN 400 MG CAP PO SCH (21:31)
[2019-09-02 02:17] LABS: Anisocytosis Slight; HCT 21.8 % (34.0-46.0); Hypochromasia Marked; MCH 31.9 pg (25.0-35.0); MCHC 31.5 g/dL (31.0-37.0); MCV 101.3 fL (80.0-100.0); Macrocytosis Moderate; Mean Platelet Volume 12.5; RBC 2.15 m/uL (3.80-5.40); RDW 18.8 % (11.5-15.5); WBC 6.1 k/uL (3.8-10.6)
[2019-09-02 02:20] LABS: HGB 6.9 gm/dL (11.4-16.0); Platelet Count 47 k/uL (150-450)
[2019-09-02 02:40] LABS: Lymphocytes # (M) 0.92 k/uL (1.0-4.8); Monocytes # (M) 0.31 k/uL (0-1.0); Neutrophils # (M) 4.88 k/uL (1.3-7.7); Neutrophils % (M) 80 %; Nucleated Red Blood Cells 0 /100 WBC (0-0); Total Cells Counted 100
[2019-09-02] MEDS: SODIUM CHLORIDE 0.9% 1,000 ML IV SCH ×2 (03:55→18:15)
[2019-09-02] MEDS: LEVOTHYROXINE 25 MCG TAB PO SCH (05:46)
[2019-09-02] MEDS: PANTOPRAZOLE 40 MG/10 ML VIAL IV SCH (08:06)
[2019-09-02] MEDS: ESCITALOPRAM 10 MG TAB PO SCH (08:06)
[2019-09-02] MEDS: MEMANTINE 10 MG TAB PO SCH ×2 (08:06→21:05)
[2019-09-02] MEDS: FUROSEMIDE 40 MG TAB PO SCH (08:06)
[2019-09-02] MEDS: PROPRANOLOL 10 MG TAB PO SCH ×3 (08:06→21:06)
[2019-09-02] MEDS: POTASSIUM CHLORIDE ER 20 MEQ TAB.ER PO SCH (08:06)
[2019-09-02] MEDS: NICOTINE 14MG/24HR PATCH TRANSDERM SCH (08:07)
[2019-09-02] MEDS: LORATADINE 10 MG TAB PO SCH (08:07)
[2019-09-02] MEDS: LISINOPRIL 20 MG TAB PO SCH (08:07)
[2019-09-02] MEDS: GABAPENTIN 400 MG CAP PO SCH ×2 (08:07→15:48)
[2019-09-02] MEDS: SYMBICORT 160-4.5 MCG INHALER INHALATION SCH ×2 (08:37→19:11)
[2019-09-02] MEDS ORDERED: NON FORMULARY DRUG (Omeprazole 40 MG) PO SCH (09:00)
[2019-09-02 12:18] LABS: Anisocytosis Slight; HCT 26.4 % (34.0-46.0); HGB 8.2 gm/dL (11.4-16.0); Hypochromasia Marked; MCH 31.2 pg (25.0-35.0); MCHC 30.9 g/dL (31.0-37.0); MCV 101.1 fL (80.0-100.0); Macrocytosis Moderate; Mean Platelet Volume 12.6; Platelet Count 57 k/uL (150-450); Poikilocytosis Slight; RBC 2.62 m/uL (3.80-5.40); RDW 19.5 % (11.5-15.5); WBC 8.7 k/uL (3.8-10.6)
[2019-09-02 12:42] LABS: Potassium 4.3 mmol/L (3.5-5.1)
[2019-09-02 13:43] LABS: Lymphocytes # (M) 0.52 k/uL (1.0-4.8); Monocytes # (M) 0.35 k/uL (0-1.0); Neutrophils # (M) 7.83 k/uL (1.3-7.7); Neutrophils % (M) 90 %; Nucleated Red Blood Cells 0 /100 WBC (0-0); Total Cells Counted 100
[2019-09-02] MEDS: SODIUM FERRIC GLUCONAT-SUCROSE 125 MG in SODIUM CHLORIDE 0.9% 100 ML IVPB SCH (15:44)
[2019-09-02] MEDS: NYSTATIN 100,000 UNIT/ML SUSP 500,000 UNIT/5 ML CUP PO SCH ×3 (15:44→21:06)
[2019-09-02] MEDS: CYANOCOBALAMIN 1,000 MCG/ML 1 ML VIAL IM SCH (15:44)
--- NOTE | 2019-09-02 15:56 | P.CONS ---
History of Present Illness - Reason for Consult Consult date: 09/02/19 anemia Requesting physician: Bebeto Davila - Chief Complaint bleeding - History of Present Illness Mrs. Vale is a very pleasant female patient who was referred to Dr. Crane in 2014 because of anemia that was found on routine blood work. Patient had recently moved from [place] to [place]. 08/17/14 her CBC revealed a hemoglobin of 7.1 g/dl, MCV of 103, otherwise normal CBC, CMP was unremarkable. Workup revealed iron deficiency, esophageal varices. She received parenteral iron in the office, she has not followed up since 2014. 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 Patient was supposed to have 3 additional cycles of chemo but those were not given due to c/o SE, hematological toxicities and peripheral neuropathy. 2015 CT CAP showed no evidence of disease. Cirrhosis of the liver was noted incidentally with borderline splenomegaly. Again, patient has not been seen by Hem/Onc since 2014. Patient is confused when seen, I asked her what brought her to the hospital and she could not tell me, I asked her if she remembered any bleeding she said yes, couldn't remember where bleeding was coming from, that she didn't remember bleeding. She is drifting off to sleep during our conversation, she having a very hard time staying awake, she is also noted to have significant spontaneous muscle spasms, jerking during our conversation. Review of Systems 14 point ROS difficult to obtain due to altered mental status, somewhat lethargic Past Medical History Past Medical History: Atrial Fibrillation, Cancer, Heart Failure, COPD, CVA/TIA, GERD/Reflux, GI Bleed, Hyperlipidemia, Hypertension, Osteoarthritis (OA) Additional Past Medical History / Comment(s): hx. uterine cancer, chemo 6 years ago, TIA several yrs. ago-forgetful, neuropathy feet & legs & hands, ANEMIA History of Any Multi-Drug Resistant Organisms: None Reported Past Surgical History: Hysterectomy, Tonsillectomy Additional Past Surgical History / Comment(s): COLONOSCOPY. EGD. BILAT CATARACTS REMOVED Past Anesthesia/Blood Transfusion Reactions: No Reported Reaction Past Psychological History: Anxiety, Depression Smoking Status: Current every day smoker (61 years) Past Alcohol Use History: None Reported Past Drug Use History: None Reported - Past Family History Mother Family Medical History: Cancer Father History Unknown: Yes Family Medical History: Cancer Brother(s) Family Medical History: Cancer Medications and Allergies Home Medications Medication Instructions Recorded Confirmed Type Ferrous Sulfate [Feosol] 325 mg PO BID 10/29/16 09/02/19 History Donepezil [Aricept] 10 mg PO HS 11/07/17 09/02/19 History Levothyroxine Sodium [Synthroid] 25 mcg PO DAILY 11/07/17 09/02/19 History Omeprazole [PriLOSEC] 40 mg PO DAILY 11/07/17 09/02/19 History Cetirizine HCl [Zyrtec] 10 mg PO DAILY 01/14/19 09/02/19 History Escitalopram [Lexapro] 10 mg PO DAILY 01/14/19 09/02/19 History Gabapentin [Neurontin] 800 mg PO TID 01/14/19 09/02/19 History Memantine [Namenda] 10 mg PO BID 01/14/19 09/02/19 History Acetaminophen Tab [Tylenol] 650 mg PO Q6H PRN 05/01/19 09/02/19 History Ipratropium-Albuterol Nebulize 3 ml INHALATION RT-QID PRN 05/01/19 09/02/19 History [Duoneb 0.5 mg-3 mg/3 ml Soln] Baclofen 5 mg PO TID 06/28/19 09/02/19 History Promethazine 6.25MG/5Ml [Phenergan 6.25 mg PO HS PRN 06/28/19 09/02/19 History Syrup] SILVER sulfADIAZINE Cream 1 applic TOPICAL BID 06/28/19 09/02/19 History [Silvadene 1% Cream] rOPINIRole HCL [Requip] 0.25 mg PO HS 06/28/19 09/02/19 History Propranolol [Inderal] 10 mg PO TID #90 tab 06/30/19 09/02/19 Rx traMADol HCl [Ultram] 50 mg PO BID PRN 07/21/19 09/02/19 History Loperamide [Imodium] 2 mg PO QAM PRN 08/10/19 09/02/19 History Budesonide-Formot 160-4.5 Mcg 2 puff INHALATION RT-BID #1 inh 08/13/19 09/02/19 Rx [Symbicort 160-4.5 Mcg Inhaler] Furosemide [Lasix] 40 mg PO DAILY #90 tab 08/13/19 09/02/19 Rx Lisinopril [Zestril] 20 mg PO DAILY #90 tab 08/13/19 09/02/19 Rx Nicotine 14Mg/24Hr Patch [Habitrol] 1 patch TRANSDERM DAILY #30 patch 08/13/19 09/02/19 Rx Potassium Chloride ER [K-Dur 20] 20 meq PO DAILY #30 tab 08/13/19 09/02/19 Rx Furosemide [Lasix] 20 mg PO HS 08/16/19 09/02/19 History predniSONE See Taper PO DAILY 08/16/19 09/02/19 History Azithromycin [Zithromax] 500 mg PO DAILY #5 tab 08/18/19 09/02/19 Rx Cefuroxime Axetil [Ceftin] 500 mg PO BID 5 Days #10 tab 08/18/19 09/02/19 Rx Allergies Allergy/AdvReac Type Severity Reaction Status Date / Time No Known Allergies Allergy Verified 09/01/19 17:13 Physical Exam Vitals: Vital Signs Temp Pulse Pulse Pulse Resp BP BP 09/02/19 08:00 76 16 09/02/19 06:57 98.0 F 78 16 123/51 09/02/19 04:10 97.6 F 60 16 114/60 09/02/19 03:40 98.3 F 59 L 16 103/65 09/02/19 03:30 98.6 F 61 16 100/62 09/01/19 21:37 97.8 F 67 16 124/52 09/01/19 21:00 98.0 F 63 16 105/58 09/01/19 18:31 97.5 F L 64 18 114/73 09/01/19 18:01 98.4 F 67 18 102/53 09/01/19 17:51 98.4 F 73 129/62 09/01/19 17:29 98.5 F 67 18 129/57 09/01/19 16:19 97.3 F L 67 16 116/70 09/01/19 14:41 66 18 114/95 09/01/19 13:23 18 09/01/19 13:16 97.8 F 81 18 121/93 Pulse Ox 09/02/19 08:00 09/02/19 06:57 93 L 09/02/19 04:10 98 09/02/19 03:40 99 09/02/19 03:30 100 09/01/19 21:37 98 09/01/19 21:00 100 09/01/19 18:31 09/01/19 18:01 09/01/19 17:51 97 09/01/19 17:29 97 09/01/19 16:19 97 09/01/19 14:41 97 09/01/19 13:23 09/01/19 13:16 94 L Intake and Output 09/01/19 09/02/19 09/02/19 22:59 06:59 14:59 Intake Total 310 310 120 Balance 310 310 120 Intake: Oral 120 Blood Product 310 310 Rc As-1 Unit 310 [id number] Rc As-3 Unit 310 [id number] Other: Voiding Method Incontinent Incontinent Incontinent # Voids 1 1 Weight 80.739 kg - Constitutional General appearance: average body habitus, disheveled, no acute distress - EENT Eyes: anicteric sclerae ENT: hearing grossly normal, thrush - Neck Neck: no lymphadenopathy - Respiratory Respiratory: bilateral: rhonchi (expiratory) - Cardiovascular Rhythm: regular Heart sounds: normal: S1, S2 Abnormal Heart Sounds: systolic murmur leg Peripheral Edema: bilateral: 1+ (non-pitting) - Gastrointestinal General gastrointestinal: no absent bowel sounds, no decreased bowel sounds, no distended, no hepatomegaly, no hyperactive bowel sounds, normal bowel sounds, no organomegaly, no rigid, no scaphoid, soft, no splenomegaly, no tenderness, no umbilical hernia, no ventral hernia - Integumentary Integumentary: normal - Neurologic random muscle spasms/jerking, entire body - Musculoskeletal Musculoskeletal: generalized weakness - Psychiatric Psychiatric: no A&O x's 3, no appropriate affect, no intact judgment & insight Results CBC & Chem 7: 09/02/19 11:53 09/02/19 11:53 Labs: Abnormal Lab Results - Last 24 Hours (Table) 09/01/19 09/01/19 09/01/19 Range/Units 13:30 13:30 13:30 RBC 2.05 L (3.80-5.40) m/uL Hgb 6.4 L* D (11.4-16.0) gm/dL Hct 21.1 L (34.0-46.0) % MCV 102.6 H (80.0-100.0) fL MCHC 30.3 L (31.0-37.0) g/dL RDW 19.1 H (11.5-15.5) % Plt Count 67 L D (150-450) k/uL Neutrophils # (Manual) 8.00 H (1.3-7.7) k/uL Lymphocytes # (Manual) 0.43 L (1.0-4.8) k/uL PT 13.3 H (9.0-12.0) sec INR 1.3 H (<1.2) Sodium 134 L (137-145) mmol/L BUN 44 H (7-17) mg/dL Creatinine 1.51 H (0.52-1.04) mg/dL Glucose 119 H (74-99) mg/dL Calcium 7.9 L (8.4-10.2) mg/dL Total Protein 6.2 L (6.3-8.2) g/dL Albumin 2.3 L (3.5-5.0) g/dL Stool Occult Blood (Negative) Crossmatch 09/01/19 09/01/19 09/02/19 Range/Units 13:30 14:00 02:01 RBC 2.15 L (3.80-5.40) m/uL Hgb 6.9 L* (11.4-16.0) gm/dL Hct 21.8 L (34.0-46.0) % MCV 101.3 H (80.0-100.0) fL MCHC (31.0-37.0) g/dL RDW 18.8 H (11.5-15.5) % Plt Count 47 L (150-450) k/uL Neutrophils # (Manual) (1.3-7.7) k/uL Lymphocytes # (Manual) 0.92 L (1.0-4.8) k/uL PT (9.0-12.0) sec INR (<1.2) Sodium (137-145) mmol/L BUN (7-17) mg/dL Creatinine (0.52-1.04) mg/dL Glucose (74-99) mg/dL Calcium (8.4-10.2) mg/dL Total Protein (6.3-8.2) g/dL Albumin (3.5-5.0) g/dL Stool Occult Blood Positive H (Negative) Crossmatch See Detail CT Scan - head: report reviewed Assessment and Plan (1) GI bleed Current Visit: Yes Status: Acute Priority: High Code(s): K92.2 - GASTROINTESTINAL HEMORRHAGE, UNSPECIFIED SNOMED Code(s): 11286416 (2) Esophageal varices determined by endoscopy Current Visit: No Status: Chronic Priority: Medium Code(s): I85.00 - ES OPHAGEAL VARICES WITHOUT BLEEDING SNOMED Code(s): 91118456 Plan: Acute on chronic gastrointestinal bleeding. Patient has history of known AV malformations as well as esophageal varices. Gastroenterology consulted. Patient has not followed-up for monitoring of her hemoglobin/iron levels or uterine cancer for 5 years. Spoke with lab, iron studies can be done on pre- transfusion blood. Orders place for the same. Patient has been transfused with an appropriate increase in her hemoglobin. Transfuse to keep hemoglobin 7 or higher or if symptomatic. I will check guidelines for appropriate imaging follow-up on uterine carcinosarcoma after 5 years. Oral nystatin ordered for thrush Recommend a Neurological consult for the spasms
--- NOTE | 2019-09-02 16:30 | P.PN ---
Subjective Progress Note Date: 09/02/19 This is a 74-year-old female admitted with GI bleed, history of esophageal varices with banding, generalized weakness and multiple other medical issues. Evaluated by GI, declined EGD. Hemoglobin 6.9 this more, received 2 units, currently up to 8.2. No spontaneous bleeding reported. No hemoptysis, no he matochezia, no melena. Vital signs stable. Confused , jerking ,tremors.Evaluated by physical therapy with subacute rehab recommended at discharge. Renal function stable. Evaluated by neurology with recommendations noted and appreciated. Denies chest pain, palpitations or increased shortness of breath. Objective - Vital Signs Vital signs: Vital Signs Temp 98.0 F 09/02/19 06:57 Pulse 76 09/02/19 08:00 Resp 16 09/02/19 08:00 BP 123/51 09/02/19 06:57 Pulse Ox 93 L 09/02/19 06:57 Intake & Output 09/01/19 09/02/19 09/02/19 18:59 06:59 18:59 Intake Total 0 620 120 Balance 0 620 120 Weight 80.739 kg Intake: Oral 120 Blood Product 0 620 Rc As-1 Unit 310 [id number] Rc As-3 Unit 0 310 [id number] Other: Voiding Method Incontinent Incontinent Incontinent # Voids 1 - Exam VITAL SIGNS: As above GENERAL: Sitting up in bed, no acute distress, pleasantly confused HEENT: Conjunctivae normal. eyes normal. Oral mucosa is moist without thrush. NECK: No JVD. No thyroid enlargement. No LNs CARDIOVASCULAR: S1, S2 regular.Systolic murmur RESPIRATION: Breath sounds diminished in the bases. No rhonchi or crackles. No expiratory wheezing. ABDOMEN: Soft, nontender . No guarding. no masses palpable. No ascites, No hepatosplenomegaly.Bowel sounds heard. LEGS: Bilateral lower extremity trace edema with no clubbing, no cyanosis. PSYCHIATRY: Alert and oriented X3, mood and affect normal. NERVOUS SYSTEM: Cranial N 2-12 grossly normal. Moves all 4 limbs. Myoclonic jerks, tremors. Skin: no lesions, no rash - Labs CBC & Chem 7: 09/02/19 11:53 09/02/19 11:53 Labs: Abnormal Lab Results - Last 24 Hours (Table) 09/01/19 09/01/19 09/01/19 Range/Units 13:30 13:30 13:30 RBC 2.05 L (3.80-5.40) m/uL Hgb 6.4 L* D (11.4-16.0) gm/dL Hct 21.1 L (34.0-46.0) % MCV 102.6 H (80.0-100.0) fL MCHC 30.3 L (31.0-37.0) g/dL RDW 19.1 H (11.5-15.5) % Plt Count 67 L D (150-450) k/uL Neutrophils # (Manual) 8.00 H (1.3-7.7) k/uL Lymphocytes # (Manual) 0.43 L (1.0-4.8) k/uL PT 13.3 H (9.0-12.0) sec INR 1.3 H (<1.2) Sodium 134 L (137-145) mmol/L BUN 44 H (7-17) mg/dL Creatinine 1.51 H (0.52-1.04) mg/dL Glucose 119 H (74-99) mg/dL Calcium 7.9 L (8.4-10.2) mg/dL Total Protein 6.2 L (6.3-8.2) g/dL Albumin 2.3 L (3.5-5.0) g/dL Stool Occult Blood (Negative) Crossmatch 09/01/19 09/01/19 09/02/19 Range/Units 13:30 14:00 02:01 RBC 2.15 L (3.80-5.40) m/uL Hgb 6.9 L* (11.4-16.0) gm/dL Hct 21.8 L (34.0-46.0) % MCV 101.3 H (80.0-100.0) fL MCHC (31.0-37.0) g/dL RDW 18.8 H (11.5-15.5) % Plt Count 47 L (150-450) k/uL Neutrophils # (Manual) (1.3-7.7) k/uL Lymphocytes # (Manual) 0.92 L (1.0-4.8) k/uL PT (9.0-12.0) sec INR (<1.2) Sodium (137-145) mmol/L BUN (7-17) mg/dL Creatinine (0.52-1.04) mg/dL Glucose (74-99) mg/dL Calcium (8.4-10.2) mg/dL Total Protein (6.3-8.2) g/dL Albumin (3.5-5.0) g/dL Stool Occult Blood Positive H (Negative) Crossmatch See Detail Assessment and Plan Assessment: Acute on chronic GI bleed, in a patient with history of AV malformation ,esophageal varices, banding , Patient declining endoscopy Acute on chronic blood loss anemia secondary to the above, history of iron deficient, status post transfusion packed RBCs Myoclonic jerks, secondary to the above Essential tremors Thrombocytopenia Acute renal failure Acute metabolic encephalopathy secondary to the above Gastroesophageal reflux disease Hepatic cirrhosis Oral candidiasis Generalized weakness, in a patient with history of chemotherapy induced peripheral neuropathy History of uterine cancer Possible B12 deficiency Ongoing nicotine dependence Chronic CHF, diastolic dysfunction Hypoalbuminemia with moderate protein calorie malnutrition COPD Restless leg syndrome Hypothyroidism Plan: Continue on current medication regime ,monitoring and symptomatic treatment. Ammonia level ordered, staff to notify PCP with results. Unfortunately unable to follow through with endoscopy studies as patient continues to decline. Daily vitamin B12 as per neurology. Primidone added to med regimen for essential tremors. venofer iv daily. Hematology consult in place with recommendations pending. close monitoring of CBC, electrolytes with labs ordered for am. Subacute rehab at discharge. Prognosis guarded given multiple complex medical issues. The impression and plan of care has been dictated as directed. : I performed a history and examination of this patient, discussed the same with the dictator. I agree with the dictator's note ,documented as a scribe. Any additional findings or plans will be noted.
--- NOTE | 2019-09-02 16:57 | P.PN ---
Subjective Progress Note Date: 09/02/19 Patient was seen for a follow-up. Patient is alert and awake. Patient has very significant myoclonic jerks/tremors of both upper > lower extremities. Objective - Vital Signs Vital signs: Vital Signs Temp 97.9 F 09/02/19 11:55 Pulse 62 09/02/19 11:55 Resp 17 09/02/19 11:55 BP 123/53 09/02/19 11:55 Pulse Ox 99 09/02/19 11:55 Intake & Output 09/01/19 09/02/19 09/02/19 18:59 06:59 18:59 Intake Total 0 620 120 Balance 0 620 120 Weight 80.739 kg Intake: Oral 120 Blood Product 0 620 Rc As-1 Unit 310 [id number] Rc As-3 Unit 0 310 [id number] Other: Voiding Method Incontinent Incontinent Incontinent # Voids 1 - Exam Patient's mentation appears normal. She has very prominent myoclonic jerks of outstretched hands. Patient also has some myoclonic jerks of lower extremities. Her ankles appears normal. Tone is normal. - Labs CBC & Chem 7: 09/02/19 11:53 09/02/19 11:53 Labs: Abnormal Lab Results - Last 24 Hours (Table) 09/01/19 09/02/19 09/02/19 Range/Units 13:30 02:01 11:53 RBC 2.15 L 2.62 L (3.80-5.40) m/uL Hgb 6.9 L* 8.2 L (11.4-16.0) gm/dL Hct 21.8 L 26.4 L (34.0-46.0) % MCV 101.3 H 101.1 H (80.0-100.0) fL MCHC 30.9 L (31.0-37.0) g/dL RDW 18.8 H 19.5 H (11.5-15.5) % Plt Count 47 L 57 L (150-450) k/uL Neutrophils # (Manual) 7.83 H (1.3-7.7) k/uL Lymphocytes # (Manual) 0.92 L 0.52 L (1.0-4.8) k/uL Sodium (137-145) mmol/L BUN (7-17) mg/dL Creatinine (0.52-1.04) mg/dL Glucose (74-99) mg/dL Calcium (8.4-10.2) mg/dL Ammonia (<30) umol/L Crossmatch See Detail 09/02/19 09/02/19 Range/Units 11:53 15:48 RBC (3.80-5.40) m/uL Hgb (11.4-16.0) gm/dL Hct (34.0-46.0) % MCV (80.0-100.0) fL MCHC (31.0-37.0) g/dL RDW (11.5-15.5) % Plt Count (150-450) k/uL Neutrophils # (Manual) (1.3-7.7) k/uL Lymphocytes # (Manual) (1.0-4.8) k/uL Sodium 135 L (137-145) mmol/L BUN 42 H (7-17) mg/dL Creatinine 1.56 H (0.52-1.04) mg/dL Glucose 104 H (74-99) mg/dL Calcium 8.0 L (8.4-10.2) mg/dL Ammonia 47 H (<30) umol/L Crossmatch Assessment and Plan Assessment: * 74-year-old female admitted with subjective weakness of lower extremities. Patient does have history of peripheral neuropathy related to chemotherapy that she received for uterine cancer 7 years ago. Patient's recent workup revealed evidence of possible B12 deficiency, as her methylmalonic acid was significantly elevated 0.64, with a normal vitamin B12 level of 876. * Significant myoclonic jerks due to anemia, COPD, mild renal insufficiency and metabolic dysfunction, probably enhanced because of gabapentin. * Severe anemia with positive occult blood in stool. * Tobacco use. Plan: * Patient's myoclonic jerks have significantly worsened. I will decrease gabapentin to 300 mg 2 times a day. Patient currently on gabapentin 800 mg 3 times a day. * We will also start B12 injections daily. * Patient may need EMG and nerve conductions of bilateral lower extremities as an outpatient. * We will follow patient clinically.
[2019-09-02 20:30] LABS: Anisocytosis Slight; HCT 22.9 % (34.0-46.0); HGB 7.2 gm/dL (11.4-16.0); Hypochromasia Moderate; MCH 31.6 pg (25.0-35.0); MCHC 31.3 g/dL (31.0-37.0); MCV 100.8 fL (80.0-100.0); Macrocytosis Moderate; Mean Platelet Volume 12.8; Poikilocytosis Slight; RBC 2.27 m/uL (3.80-5.40); RDW 19.5 % (11.5-15.5); WBC 5.7 k/uL (3.8-10.6)
[2019-09-02 20:31] LABS: Platelet Count 50 k/uL (150-450)
[2019-09-02] MEDS: PRIMIDONE 25 MG TAB PO SCH (21:05)
[2019-09-02] MEDS: FUROSEMIDE 20 MG TAB PO SCH (21:05)
[2019-09-02] MEDS: DONEPEZIL 10 MG TAB PO SCH (21:05)
[2019-09-02] MEDS ORDERED: LACTULOSE 20 GM/30 ML CUP PO SCH (22:00)
[2019-09-03 00:36] LABS: % Iron Saturation 8.68 (12.00-45.00); Ferritin 238.5 ng/mL (10.0-291.0)
[2019-09-03 02:49] LABS: Anisocytosis Slight; HCT 23.8 % (34.0-46.0); HGB 7.3 gm/dL (11.4-16.0); Hypochromasia Marked; MCH 31.7 pg (25.0-35.0); MCHC 30.9 g/dL (31.0-37.0); MCV 102.6 fL (80.0-100.0); Macrocytosis Moderate; Mean Platelet Volume 13.7; Platelet Count 49 k/uL (150-450); RBC 2.32 m/uL (3.80-5.40); RDW 19.7 % (11.5-15.5); WBC 6.5 k/uL (3.8-10.6)
[2019-09-03 03:10] LABS: Calcium 8.1 mg/dL (8.4-10.2)
[2019-09-03 03:25] LABS: Eosinophils # (M) 0.07 k/uL (0-0.7); Lymphocytes # (M) 0.52 k/uL (1.0-4.8); Monocytes # (M) 0.26 k/uL (0-1.0); Neutrophils # (M) 5.66 k/uL (1.3-7.7); Neutrophils % (M) 87 %; Nucleated Red Blood Cells 0 /100 WBC (0-0); Total Cells Counted 100
[2019-09-03 03:26] LABS: Target Cells Present
[2019-09-03] MEDS: LEVOTHYROXINE 25 MCG TAB PO SCH (06:01)
[2019-09-03] MEDS: SYMBICORT 160-4.5 MCG INHALER INHALATION SCH ×2 (07:33→20:15)
[2019-09-03 08:11] LABS: Anisocytosis Slight; HCT 22.9 % (34.0-46.0); HGB 7.1 gm/dL (11.4-16.0); Hypochromasia Moderate; MCH 30.5 pg (25.0-35.0); MCHC 31.2 g/dL (31.0-37.0); MCV 97.7 fL (80.0-100.0); Macrocytosis Slight; Platelet Count 52 k/uL (150-450); RBC 2.34 m/uL (3.80-5.40); RDW 19.4 % (11.5-15.5); WBC 5.8 k/uL (3.8-10.6)
[2019-09-03 09:06] LABS: Eosinophils # (M) 0.06 k/uL (0-0.7); Lymphocytes # (M) 0.29 k/uL (1.0-4.8); Monocytes # (M) 0.23 k/uL (0-1.0); Neutrophils # (M) 5.22 k/uL (1.3-7.7); Neutrophils % (M) 90 %; Nucleated Red Blood Cells 0 /100 WBC (0-0); Total Cells Counted 100
[2019-09-03 09:07] LABS: Poikilocytosis (M) Present
--- NOTE | 2019-09-03 10:41 | P.PN ---
Subjective Progress Note Date: 09/03/19 Principal diagnosis: GI bleed, anemia In follow-up today patient mental status is still the same, she seems to understand a few questions and then her conversation drifts off to something else. She denied any needs. She did not appear to be in any physical distress or pain based on her behaviors. She is still noted to have some of the trembling/jerking motions but, they do seem less today. Objective - Vital Signs Vital signs: Vital Signs Temp 98.2 F 09/03/19 05:00 Pulse 69 09/03/19 05:00 Resp 18 09/03/19 05:00 BP 119/57 09/03/19 05:00 Pulse Ox 96 09/03/19 05:00 Intake & Output 09/02/19 09/03/19 09/03/19 18:59 06:59 18:59 Intake Total 980 Balance 980 Intake: Intake, IV Titration 100 Amount Sodium Ferric Gluconat- 100 Sucrose 125 mg In Sodium Chloride 0.9% 100 ml @ 100 mls/hr IVPB DAILY [facility] Rx#:[id number] Oral 880 Other: Voiding Method Incontinent Incontinent # Voids 3 1 # Bowel Movements 1 - Constitutional General appearance: Present: average body habitus, cooperative, mild distress - EENT Eyes: Present: anicteric sclerae ENT: Present: hearing grossly normal - Respiratory Respiratory: bilateral: CTA - Cardiovascular Heart sounds: normal: S1, S2 - Peripheral edema leg Peripheral Edema: bilateral: None - Gastrointestinal General gastrointestinal: Present: normal bowel sounds, soft - Musculoskeletal Musculoskeletal: Present: generalized weakness - Psychiatric Psychiatric: Absent: appropriate affect, intact judgment & insight - Labs CBC & Chem 7: 09/03/19 06:56 09/03/19 02:34 Labs: Abnormal Lab Results - Last 24 Hours (Table) 09/01/19 09/01/19 09/02/19 Range/Units 13:30 13:30 11:53 RBC 2.62 L (3.80-5.40) m/uL Hgb 8.2 L (11.4-16.0) gm/dL Hct 26.4 L (34.0-46.0) % MCV 101.1 H (80.0-100.0) fL MCHC 30.9 L (31.0-37.0) g/dL RDW 19.5 H (11.5-15.5) % Plt Count 57 L (150-450) k/uL Neutrophils # (Manual) 7.83 H (1.3-7.7) k/uL Lymphocytes # (Manual) 0.52 L (1.0-4.8) k/uL Sodium (137-145) mmol/L Carbon Dioxide (22-30) mmol/L BUN (7-17) mg/dL Creatinine (0.52-1.04) mg/dL Glucose (74-99) mg/dL Calcium (8.4-10.2) mg/dL Iron 21 L (50-170) ug/dL % Saturation 8.68 L (12.00-45.00) Ammonia (<30) umol/L Crossmatch See Detail 09/02/19 09/02/19 09/02/19 Range/Units 11:53 15:48 20:11 RBC 2.27 L (3.80-5.40) m/uL Hgb 7.2 L (11.4-16.0) gm/dL Hct 22.9 L (34.0-46.0) % MCV 100.8 H (80.0-100.0) fL MCHC (31.0-37.0) g/dL RDW 19.5 H (11.5-15.5) % Plt Count 50 L (150-450) k/uL Neutrophils # (Manual) (1.3-7.7) k/uL Lymphocytes # (Manual) (1.0-4.8) k/uL Sodium 135 L (137-145) mmol/L Carbon Dioxide (22-30) mmol/L BUN 42 H (7-17) mg/dL Creatinine 1.56 H (0.52-1.04) mg/dL Glucose 104 H (74-99) mg/dL Calcium 8.0 L (8.4-10.2) mg/dL Iron (50-170) ug/dL % Saturation (12.00-45.00) Ammonia 47 H (<30) umol/L Crossmatch 09/03/19 09/03/19 09/03/19 Range/Units 02:34 02:34 06:56 RBC 2.32 L 2.34 L (3.80-5.40) m/uL Hgb 7.3 L 7.1 L (11.4-16.0) gm/dL Hct 23.8 L 22.9 L (34.0-46.0) % MCV 102.6 H (80.0-100.0) fL MCHC 30.9 L (31.0-37.0) g/dL RDW 19.7 H 19.4 H (11.5-15.5) % Plt Count 49 L 52 L (150-450) k/uL Neutrophils # (Manual) (1.3-7.7) k/uL Lymphocytes # (Manual) 0.52 L 0.29 L (1.0-4.8) k/uL Sodium 136 L (137-145) mmol/L Carbon Dioxide 31 H (22-30) mmol/L BUN 41 H (7-17) mg/dL Creatinine 1.51 H (0.52-1.04) mg/dL Glucose (74-99) mg/dL Calcium 8.1 L (8.4-10.2) mg/dL Iron (50-170) ug/dL % Saturation (12.00-45.00) Ammonia (<30) umol/L Crossmatch 09/03/19 Range/Units 09:46 RBC (3.80-5.40) m/uL Hgb (11.4-16.0) gm/dL Hct (34.0-46.0) % MCV (80.0-100.0) fL MCHC (31.0-37.0) g/dL RDW (11.5-15.5) % Plt Count (150-450) k/uL Neutrophils # (Manual) (1.3-7.7) k/uL Lymphocytes # (Manual) (1.0-4.8) k/uL Sodium (137-145) mmol/L Carbon Dioxide (22-30) mmol/L BUN (7-17) mg/dL Creatinine (0.52-1.04) mg/dL Glucose (74-99) mg/dL Calcium (8.4-10.2) mg/dL Iron (50-170) ug/dL % Saturation (12.00-45.00) Ammonia 58 H (<30) umol/L Crossmatch Assessment and Plan (1) GI bleed Current Visit: Yes Status: Acute Priority: High Code(s): K92.2 - GASTROINTESTINAL HEMORRHAGE, UNSPECIFIED SNOMED Code(s): 05629897 (2) Esophageal varices determined by endoscopy Current Visit: No Status: Chronic Priority: Medium Code(s): I85.00 - ESOPHAGEAL VARICES WITHOUT BLEEDING SNOMED Code(s): 47415695 Plan: Acute on chronic gastrointestinal bleeding. Patient has history of known AV malformations as well as esophageal varices. Gastroenterology consulted. Iron studies reviewed. Patient's baseline ferritin is likely elevated secondary to liver disease. Parenteral iron has been ordered for low iron and saturation. No transfusion is needed today. Transfuse to keep hemoglobin 7 or higher or if symptomatic. 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 We'll request the imaging. It is okay to hold performing the imaging until the patient is more stable/able to be cooperative. Doctor attests: I performed a history and physical examination of this patient, developed impression and plan of care. Discussed with dictator. I agree with dictators note, documented as a scribe.
[2019-09-03] MEDS: NICOTINE 14MG/24HR PATCH TRANSDERM SCH (11:13)
[2019-09-03] MEDS: SODIUM FERRIC GLUCONAT-SUCROSE 125 MG in SODIUM CHLORIDE 0.9% 100 ML IVPB SCH (11:15)
[2019-09-03] MEDS: PANTOPRAZOLE 40 MG/10 ML VIAL IV SCH (11:16)
[2019-09-03] MEDS: CYANOCOBALAMIN 1,000 MCG/ML 1 ML VIAL IM SCH (11:16)
[2019-09-03] MEDS: SODIUM CHLORIDE 0.9% 1,000 ML IV SCH (11:23)
[2019-09-03] MEDS: FUROSEMIDE 40 MG TAB PO SCH (12:05)
[2019-09-03] MEDS: LORATADINE 10 MG TAB PO SCH (12:05)
[2019-09-03] MEDS: MEMANTINE 10 MG TAB PO SCH ×2 (12:05→21:20)
[2019-09-03] MEDS: ESCITALOPRAM 10 MG TAB PO SCH (12:05)
[2019-09-03] MEDS: LISINOPRIL 20 MG TAB PO SCH (12:05)
[2019-09-03] MEDS: POTASSIUM CHLORIDE ER 20 MEQ TAB.ER PO SCH (12:06)
[2019-09-03] MEDS: PROPRANOLOL 10 MG TAB PO SCH ×3 (12:06→22:47)
--- NOTE | 2019-09-03 12:27 | XR ---
EXAMINATION TYPE: XR chest 1V DATE OF EXAM: 09/03/2019 COMPARISON: 09/01/2019 HISTORY: Cough, congestion, and weakness TECHNIQUE: Single frontal view of the chest is obtained. FINDINGS: Diffuse increased lung markings are again seen, right greater than left that are similar i n degree from the prior. Right-sided Mediport is noted. Cardiomediastinal silhouette is stable. There is diffuse osseous demineralization. IMPRESSION: Acute on chronic interstitial prominence throughout, similar in degree to the prior, mor e exaggerated on the right than left secondary to rotation. Considerations are for atypical pneumonia , fibrosis or interstitial edema.
[2019-09-03] MEDS: NYSTATIN 100,000 UNIT/ML SUSP 500,000 UNIT/5 ML CUP PO SCH ×4 (12:36→23:14)
[2019-09-03] MEDS: LACTULOSE 200 GM/300 ML (FROM 1/2 GAL JUG) RECTAL SCH ×2 (12:37→16:48)
--- NOTE | 2019-09-03 12:57 | P.PN ---
Subjective Progress Note Date: 09/03/19 This is a 74-year-old female admitted with GI bleed, history of esophageal varices with banding, generalized weakness and multiple other medical issues. Evaluated by GI, declined EGD. Hemoglobin 6.9 this more, received 2 units, currently up to 8.2. No spontaneous bleeding reported. No hemoptysis, no he matochezia, no melena. Vital signs stable. Confused , jerking ,tremors.Evaluated by physical therapy with subacute rehab recommended at discharge. Renal function stable. Evaluated by neurology with recommendations noted and appreciated. Denies chest pain, palpitations or increased shortness of breath. 09/03/2019 Ammonia level yesterday elevated, 47 with lactulose initiated, continues to rise currently at 58. patient nearly lethargic, nearly obtunded. Confused, slurred speech, opens eyes and falls back to sleep, difficulty maintaining airway. ABGs ordered stat, transferred to ICU, check services clerk notified. Pancultured as well, patient has overall small wound on the tip of her left great toe. Afebrile. Labs pending. Objective - Vital Signs Vital signs: Vital Signs Temp 98 F 09/03/19 12:06 Pulse 73 09/03/19 12:06 Resp 18 09/03/19 12:06 BP 134/47 09/03/19 12:06 Pulse Ox 93 L 09/03/19 12:06 Intake & Output 09/02/19 09/03/19 09/03/19 18:59 06:59 18:59 Intake Total 980 Balance 980 Intake: Intake, IV Titration 100 Amount Sodium Ferric Gluconat- 100 Sucrose 125 mg In Sodium Chloride 0.9% 100 ml @ 100 mls/hr IVPB DAILY [facility] Rx#:[id number] Oral 880 Other: Voiding Method Incontinent Incontinent # Voids 3 1 # Bowel Movements 1 - Exam VITAL SIGNS: As above GENERAL:Sitting up in bed, nearly obtunded, unable to maintain eyes open, confused, thinks she is at home and that it is easier 2019 HEENT: Conjunctivae normal. eyes normal. NECK: No JVD. No thyroid enlargement. No LNs CARDIOVASCULAR: S1, S2 regular.Systolic murmur RESPIRATION: Breath sounds diminished in the bases. No rhonchi or crackles. No expiratory wheezing. ABDOMEN: Soft, nontender . No guarding. no masses palpable. No ascites, No hepatosplenomegaly.Bowel sounds heard. LEGS: Bilateral lower extremity trace edema with no clubbing, no cyanosis. PSYCHIATRY: Alert and oriented X1, mood and affect normal. NERVOUS SYSTEM: Cranial N 2-12 grossly normal. Moves all 4 limbs. Myoclonic jerks, tremors. Skin: Left great toe tip bluish, wound, attempting to obtain drainage for culture, no rash - Labs CBC & Chem 7: 09/03/19 06:56 09/03/19 02:34 Labs: Abnormal Lab Results - Last 24 Hours (Table) 09/01/19 09/01/19 09/02/19 Range/Units 13:30 13:30 11:53 RBC 2.62 L (3.80-5.40) m/uL Hgb 8.2 L (11.4-16.0) gm/dL Hct 26.4 L (34.0-46.0) % MCV 101.1 H (80.0-100.0) fL MCHC 30.9 L (31.0-37.0) g/dL RDW 19.5 H (11.5-15.5) % Plt Count 57 L (150-450) k/uL Neutrophils # (Manual) 7.83 H (1.3-7.7) k/uL Lymphocytes # (Manual) 0.52 L (1.0-4.8) k/uL Sodium (137-145) mmol/L Carbon Dioxide (22-30) mmol/L BUN (7-17) mg/dL Creatinine (0.52-1.04) mg/dL Glucose (74-99) mg/dL Calcium (8.4-10.2) mg/dL Iron 21 L (50-170) ug/dL % Saturation 8.68 L (12.00-45.00) Ammonia (<30) umol/L Crossmatch See Detail 09/02/19 09/02/19 09/02/19 Range/Units 11:53 15:48 20:11 RBC 2.27 L (3.80-5.40) m/uL Hgb 7.2 L (11.4-16.0) gm/dL Hct 22.9 L (34.0-46.0) % MCV 100.8 H (80.0-100.0) fL MCHC (31.0-37.0) g/dL RDW 19.5 H (11.5-15.5) % Plt Count 50 L (150-450) k/uL Neutrophils # (Manual) (1.3-7.7) k/uL Lymphocytes # (Manual) (1.0-4.8) k/uL Sodium 135 L (137-145) mmol/L Carbon Dioxide (22-30) mmol/L BUN 42 H (7-17) mg/dL Creatinine 1.56 H (0.52-1.04) mg/dL Glucose 104 H (74-99) mg/dL Calcium 8.0 L (8.4-10.2) mg/dL Iron (50-170) ug/dL % Saturation (12.00-45.00) Ammonia 47 H (<30) umol/L Crossmatch 09/03/19 09/03/19 09/03/19 Range/Units 02:34 02:34 06:56 RBC 2.32 L 2.34 L (3.80-5.40) m/uL Hgb 7.3 L 7.1 L (11.4-16.0) gm/dL Hct 23.8 L 22.9 L (34.0-46.0) % MCV 102.6 H (80.0-100.0) fL MCHC 30.9 L (31.0-37.0) g/dL RDW 19.7 H 19.4 H (11.5-15.5) % Plt Count 49 L 52 L (150-450) k/uL Neutrophils # (Manual) (1.3-7.7) k/uL Lymphocytes # (Manual) 0.52 L 0.29 L (1.0-4.8) k/uL Sodium 136 L (137-145) mmol/L Carbon Dioxide 31 H (22-30) mmol/L BUN 41 H (7-17) mg/dL Creatinine 1.51 H (0.52-1.04) mg/dL Glucose (74-99) mg/dL Calcium 8.1 L (8.4-10.2) mg/dL Iron (50-170) ug/dL % Saturation (12.00-45.00) Ammonia (<30) umol/L Crossmatch 09/03/19 Range/Units 09:46 RBC (3.80-5.40) m/uL Hgb (11.4-16.0) gm/dL Hct (34.0-46.0) % MCV (80.0-100.0) fL MCHC (31.0-37.0) g/dL RDW (11.5-15.5) % Plt Count (150-450) k/uL Neutrophils # (Manual) (1.3-7.7) k/uL Lymphocytes # (Manual) (1.0-4.8) k/uL Sodium (137-145) mmol/L Carbon Dioxide (22-30) mmol/L BUN (7-17) mg/dL Creatinine (0.52-1.04) mg/dL Glucose (74-99) mg/dL Calcium (8.4-10.2) mg/dL Iron (50-170) ug/dL % Saturation (12.00-45.00) Ammonia 58 H (<30) umol/L Crossmatch Assessment and Plan Assessment: Acute on chronic GI bleed, in a patient with history of AV malformation ,esophageal varices, banding , Patient declined endoscopy. Acute on chronic blood loss anemia secondary to the above, history of iron deficient, status post transfusion packed RBCs Myoclonic jerks, secondary to the above Essential tremors Thrombocytopenia Acute renal failure Acute metabolic encephalopathy secondary to the above Acute hepatic encephalopathy Possible acute pneumonia, possibly aspiration pneumonia, worsening congestive wet cough, chest x-ray ordered Gastroesophageal reflux disease Hepatic cirrhosis Oral candidiasis Generalized weakness, in a patient with history of chemotherapy induced peripheral neuropathy History of uterine cancer Possible B12 deficiency Ongoing nicotine dependence Chronic CHF, diastolic dysfunction Hypoalbuminemia with moderate protein calorie malnutrition COPD Restless leg syndrome Hypothyroidism Plan: Continue on current medication regime ,monitoring and symptomatic treatment. Nearly obtunded, ABG stat ordered along with transfer to ICU, wound cultures, pancultured, stat labs .check services clerk notified .maintain lactulose.all sedatives placed on hold .blood pressure borderline, with mild renal failure, DARNELL inhibitor placed on hold. Ammonia level ordered. Prognosis guarded given multiple complex medical issues. The impression and plan of care has been dictated as directed. : I performed a history and examination of this patient, discussed the same with the dictator. I agree with the dictator's note ,documented as a scribe. Any additional findings or plans will be noted.
[2019-09-03 13:31] LABS: Albumin 2.5 g/dL (3.5-5.0); Calcium 8.2 mg/dL (8.4-10.2); Total Bilirubin 1.7 mg/dL (0.2-1.3); Total Protein 6.4 g/dL (6.3-8.2)
[2019-09-03 13:32] LABS: Anisocytosis Slight; HCT 26.3 % (34.0-46.0); Hypochromasia Marked; MCH 30.9 pg (25.0-35.0); MCHC 30.6 g/dL (31.0-37.0); MCV 101.2 fL (80.0-100.0); Macrocytosis Moderate; Mean Platelet Volume 12.3; RDW 19.1 % (11.5-15.5)
[2019-09-03 13:33] LABS: Platelet Count 62 k/uL (150-450)
[2019-09-03 13:37] LABS: Magnesium 1.7 mg/dL (1.6-2.3); Potassium 4.3 mmol/L (3.5-5.1)
--- NOTE | 2019-09-03 13:59 | P.CONS ---
History of Present Illness - Reason for Consult Consult date: 09/02/19 Anemia, decompensated cirrhosis Requesting physician: Bebeto Davila - Chief Complaint Anemia - History of Present Illness 74-year-old female with a medical history significant for chronic persistent anemia, decompensated cirrhosis with varices, COPD, uterine cancer who presented to the hospital due to anemia. She has a known history of anemia since 2014. IV hematology/oncology service. Patient also has a history of decompensated alcohol cirrhosis with previously banded varices with the last performed in 07/24/2019 of this year at which time varices were banded and Jazzy ectasia of the duodenum were treated with gold probe ablation. Patient also has mild portal hypertensive gastropathy on prior endoscopy. Colonoscopy was in 05/2017 and was within normal limits. On current presentation patient had presented to the hospital with complaints of weakness and was found again to be anemic. She is scheduled for transfusion of packed red blood cells. On presentation she is refusing further endoscopic evaluation. Review of Systems REVIEW OF SYSTEMS: CONSTITUTIONAL: Denies any fevers, chills, weight change or but she does report generalized fatigue and weakness. CARDIOVASCULAR: Denies any chest pain, palpitations high or low blood pressures RESPIRATORY: Denies any shortness of breath, hemoptysis or cough. GENITOURINARY: No dysuria or hematuria. MUSCULOSKELETAL: No focal muscular weakness reported. SKIN: Denies any new rashes or lesions, jaundice or pallor. PSYCHIATRIC: Denies any depression or anxiety. NEUROLOGY: Denies headache, denies any new focal deficits. EARS/NOSE/THROAT: No recent hearing change, congestion, nasal discharge or sore throat. EYES: No pain in eyes, discharge or change in vision. GASTROINTESTINAL: As per HPI. Past Medical History Past Medical History: Atrial Fibrillation, Cancer, Heart Failure, COPD, CVA/TIA, GERD/Reflux, GI Bleed, Hyperlipidemia, Hypertension, Osteoarthritis (OA) Additional Past Medical History / Comment(s): hx. uterine cancer, chemo 6 years ago, TIA several yrs. ago-forgetful, neuropathy feet & legs & hands, ANEMIA History of Any Multi-Drug Resistant Organisms: None Reported Past Surgical History: Hysterectomy, Tonsillectomy Additional Past Surgical History / Comment(s): COLONOSCOPY. EGD. BILAT CATARACTS REMOVED Past Anesthesia/Blood Transfusion Reactions: No Reported Reaction Past Psychological History: Anxiety, Depression Smoking Status: Current every day smoker (61 years) Past Alcohol Use History: None Reported Past Drug Use History: None Reported - Past Family History Mother Family Medical History: Cancer Father History Unknown: Yes Family Medical History: Cancer Brother(s) Family Medical History: Cancer Medications and Allergies Home Medications Medication Instructions Recorded Confirmed Type Ferrous Sulfate [Feosol] 325 mg PO BID 10/29/16 09/02/19 History Donepezil [Aricept] 10 mg PO HS 11/07/17 09/02/19 History Levothyroxine Sodium [Synthroid] 25 mcg PO DAILY 11/07/17 09/02/19 History Omeprazole [PriLOSEC] 40 mg PO DAILY 11/07/17 09/02/19 History Cetirizine HCl [Zyrtec] 10 mg PO DAILY 01/14/19 09/02/19 History Escitalopram [Lexapro] 10 mg PO DAILY 01/14/19 09/02/19 History Gabapentin [Neurontin] 800 mg PO TID 01/14/19 09/02/19 History Memantine [Namenda] 10 mg PO BID 01/14/19 09/02/19 History Acetaminophen Tab [Tylenol] 650 mg PO Q6H PRN 05/01/19 09/02/19 History Ipratropium-Albuterol Nebulize 3 ml INHALATION RT-QID PRN 05/01/19 09/02/19 History [Duoneb 0.5 mg-3 mg/3 ml Soln] Baclofen 5 mg PO TID 06/28/19 09/02/19 History Promethazine 6.25MG/5Ml [Phenergan 6.25 mg PO HS PRN 06/28/19 09/02/19 History Syrup] SILVER sulfADIAZINE Cream 1 applic TOPICAL BID 06/28/19 09/02/19 History [Silvadene 1% Cream] rOPINIRole HCL [Requip] 0.25 mg PO HS 06/28/19 09/02/19 History Propranolol [Inderal] 10 mg PO TID #90 tab 06/30/19 09/02/19 Rx traMADol HCl [Ultram] 50 mg PO BID PRN 07/21/19 09/02/19 History Loperamide [Imodium] 2 mg PO QAM PRN 08/10/19 09/02/19 History Budesonide-Formot 160-4.5 Mcg 2 puff INHALATION RT-BID #1 inh 08/13/19 09/02/19 Rx [Symbicort 160-4.5 Mcg Inhaler] Furosemide [Lasix] 40 mg PO DAILY #90 tab 08/13/19 09/02/19 Rx Lisinopril [Zestril] 20 mg PO DAILY #90 tab 08/13/19 09/02/19 Rx Nicotine 14Mg/24Hr Patch [Habitrol] 1 patch TRANSDERM DAILY #30 patch 08/13/19 09/02/19 Rx Potassium Chloride ER [K-Dur 20] 20 meq PO DAILY #30 tab 08/13/19 09/02/19 Rx Furosemide [Lasix] 20 mg PO HS 08/16/19 09/02/19 History predniSONE See Taper PO DAILY 08/16/19 09/02/19 History Azithromycin [Zithromax] 500 mg PO DAILY #5 tab 08/18/19 09/02/19 Rx Cefuroxime Axetil [Ceftin] 500 mg PO BID 5 Days #10 tab 08/18/19 09/02/19 Rx Allergies Allergy/AdvReac Type Severity Reaction Status Date / Time No Known Allergies Allergy Verified 09/01/19 17:13 Physical Exam Vitals: Vital Signs Temp Pulse Pulse Pulse Resp BP BP 09/02/19 08:00 76 16 09/02/19 06:57 98.0 F 78 16 123/51 09/02/19 04:10 97.6 F 60 16 114/60 09/02/19 03:40 98.3 F 59 L 16 103/65 09/02/19 03:30 98.6 F 61 16 100/62 09/01/19 21:37 97.8 F 67 16 124/52 09/01/19 21:00 98.0 F 63 16 105/58 09/01/19 18:31 97.5 F L 64 18 114/73 09/01/19 18:01 98.4 F 67 18 102/53 09/01/19 17:51 98.4 F 73 129/62 09/01/19 17:29 98.5 F 67 18 129/57 09/01/19 16:19 97.3 F L 67 16 116/70 09/01/19 14:41 66 18 114/95 09/01/19 13:23 18 09/01/19 13:16 97.8 F 81 18 121/93 Pulse Ox 09/02/19 08:00 09/02/19 06:57 93 L 09/02/19 04:10 98 09/02/19 03:40 99 09/02/19 03:30 100 09/01/19 21:37 98 09/01/19 21:00 100 09/01/19 18:31 09/01/19 18:01 09/01/19 17:51 97 09/01/19 17:29 97 09/01/19 16:19 97 09/01/19 14:41 97 09/01/19 13:23 09/01/19 13:16 94 L Intake and Output 09/01/19 09/02/19 09/02/19 22:59 06:59 14:59 Intake Total 310 310 120 Balance 310 310 120 Intake: Oral 120 Blood Product 310 310 Rc As-1 Unit 310 [id number] Rc As-3 Unit 310 [id number] Other: Voiding Method Incontinent Incontinent Incontinent # Voids 1 1 Weight 80.739 kg On physical examination, patient appears comfortable in no apparent distress. HEAD: Normocephalic, atraumatic. EYES: No scleral icterus. No conjunctival injection. MOUTH: No lesions, tongue midline. NECK: Trachea midline, no gross abnormalities. CHEST: Clear to auscultation with no wheezing or rhonchi appreciated. HEART: S1-S2 appreciated. ABDOMEN: Soft, nontender to palpation. Bowel sounds are positive. No organomegaly. No guarding or rigidity. EXTREMITIES: No pedal edema. SKIN: No rashes, no jaundice. NEUROLOGIC: Alert and oriented x3. No focal deficits. Results CBC & Chem 7: 09/03/19 06:56 09/03/19 02:34 Labs: Abnormal Lab Results - Last 24 Hours (Table) 09/01/19 09/01/19 09/01/19 Range/Units 13:30 13:30 13:30 RBC 2.05 L (3.80-5.40) m/uL Hgb 6.4 L* D (11.4-16.0) gm/dL Hct 21.1 L (34.0-46.0) % MCV 102.6 H (80.0-100.0) fL MCHC 30.3 L (31.0-37.0) g/dL RDW 19.1 H (11.5-15.5) % Plt Count 67 L D (150-450) k/uL Neutrophils # (Manual) 8.00 H (1.3-7.7) k/uL Lymphocytes # (Manual) 0.43 L (1.0-4.8) k/uL PT 13.3 H (9.0-12.0) sec INR 1.3 H (<1.2) Sodium 134 L (137-145) mmol/L BUN 44 H (7-17) mg/dL Creatinine 1.51 H (0.52-1.04) mg/dL Glucose 119 H (74-99) mg/dL Calcium 7.9 L (8.4-10.2) mg/dL Total Protein 6.2 L (6.3-8.2) g/dL Albumin 2.3 L (3.5-5.0) g/dL Stool Occult Blood (Negative) Crossmatch 09/01/19 09/01/19 09/02/19 Range/Units 13:30 14:00 02:01 RBC 2.15 L (3.80-5.40) m/uL Hgb 6.9 L* (11.4-16.0) gm/dL Hct 21.8 L (34.0-46.0) % MCV 101.3 H (80.0-100.0) fL MCHC (31.0-37.0) g/dL RDW 18.8 H (11.5-15.5) % Plt Count 47 L (150-450) k/uL Neutrophils # (Manual) (1.3-7.7) k/uL Lymphocytes # (Manual) 0.92 L (1.0-4.8) k/uL PT (9.0-12.0) sec INR (<1.2) Sodium (137-145) mmol/L BUN (7-17) mg/dL Creatinine (0.52-1.04) mg/dL Glucose (74-99) mg/dL Calcium (8.4-10.2) mg/dL Total Protein (6.3-8.2) g/dL Albumin (3.5-5.0) g/dL Stool Occult Blood Positive H (Negative) Crossmatch See Detail Assessment and Plan (1) Symptomatic anemia Narrative/Plan: 74-year-old with a known history of decompensated alcohol cirrhosis and macrocytic anemia presenting due to weakness and found to be anemic. Patient has undergone prior colonoscopy in 05/2017 within normal limits and multiple endoscopies this year in 05/2019 and 07/2019 with variceal banding as well as findings of portal hypertensive gastropathy and treatment of duodenal angiodysp lasia. Currently she is denying any signs or symptoms of GI bleeding. She likely has a multifactorial anemia secondary to chronic disease as well as hypersplenism in the setting of portal hypertension. Current Visit: No Status: Acute Priority: High Code(s): D64.9 - ANEMIA, UNSPECIFIED SNOMED Code(s): 552230174 (2) Thrombocytopenia Current Visit: No Status: Acute Priority: Medium Code(s): D69.6 - THROMBOCYTOPENIA, UNSPECIFIED SNOMED Code(s): 682485373 (3) Esophageal varices determined by endoscopy Current Visit: No Status: Chronic Priority: Medium Code(s): I85.00 - ESOPHAGEAL VARICES WITHOUT BLEEDING SNOMED Code(s): 84617512 (4) Liver cirrhosis Current Visit: No Status: Chronic Priority: Medium Code(s): K74.60 - UNSPECIFIED CIRRHOSIS OF LIVER SNOMED Code(s): 46611428 Plan: Supportive care Clear liquid diet Sodium restricted diet 2 g daily Protonix daily Continue to monitor hemoglobin and hematocrit and transfuse as needed Continue iron supplementation Hematology service consulted to see the patient Continue Inderal 10 mg 3 times daily Lactulose titrated as the patient appears encephalopathic Continue to monitor clinically Thank you for allowing us to participate in the care of the patient
--- NOTE | 2019-09-03 14:01 | CDI ---
Documentation Clarification Form Date: 09/03/2019 12:54:00 PM From: Ladonna Nguyễn RN, CCDS Admit Date: 09/01/2019 02:15:00 PM Patient Name: Lexii Vale Visit Number: [id number] Discharge Date: ATTENTION: The Clinical Documentation Specialists (CDI) and [facility] Coding Staff appreciate your assistance in clarifying documentation. Please respond to the clarification below the line at the bottom and electronically sign. The CDI & [facility] Coding staff will review the response and follow-up if needed. Please note: Queries are made part of the Legal Health Record. If you have any questions, please contact the author of this message via ITS. Dr. Bebeto Davila 08/31 H&P Acute on chronic renal insufficiency. Admission for 05/01/19-05/04/19 has a GFR 53. Request your professional opinion on what this may indicate. History/Risk Factors: Cancer, Heart failure COPD, Anemia, CVA, Esophageal Varies with banding x5. Admission on 05/01/19: BUN 15, CR 1.03 GFR 53 Clinical Indicators: 74-year-old female present to ED on 08/31 with complaints of weakness left leg. She was found to be severely anemic on 08/31 with HGB 6.4, HCT 21.1. She has hemoccult-positive stool. Past admission and current admission are showing an abnormal GFR On admission 08/31 BUN 44 CR 1.51 GFR 33 09/01 BUN 42, CR 1.56 / BUN 41 CR 1.51 GFR 33 Treatment: Monitor CBC, LYTES, BUN, CR In order to capture the severity of condition, please clarify the stage of the CKD, if known: CKD Stage 1 (GFR > 90) CKD Stage 2 (GFR 60-89) CKD Stage 3 (GFR 30-59) CKD Stage 4 (GFR 15-29) Other, please specify Unable to determine (Last Revision: May 2019) MTDD
[2019-09-03 15:25] LABS: Total Bilirubin 1.7 mg/dL (0.2-1.3)
[2019-09-03 15:40] LABS: Glucose,Whole Blood 119 mg/dL (75-99)
[2019-09-03 16:10] LABS: Allen Test Performed? Yes
[2019-09-03 16:14] LABS: ABG Base Excess 6.5 mmol/L; ABG HCO3 30 mmol/L (21-25); ABG Oxygen Saturation 95.7 % (94-97); ABG PCO2 41 mmHg (35-45); ABG PH 7.48 (7.35-7.45); ABG PO2 83 mmHg (83-108)
[2019-09-03] MEDS ORDERED: LACTULOSE 200 GM/300 ML (FROM 1/2 GAL JUG) PO SCH (16:27)
[2019-09-03 16:37] LABS: Anisocytosis Slight; HCT 24.6 % (34.0-46.0); HGB 7.7 gm/dL (11.4-16.0); Hypochromasia Moderate; MCH 30.8 pg (25.0-35.0); MCHC 31.2 g/dL (31.0-37.0); MCV 98.8 fL (80.0-100.0); Macrocytosis Moderate; Mean Platelet Volume 13.2; Platelet Count 60 k/uL (150-450); RBC 2.49 m/uL (3.80-5.40); RDW 19.4 % (11.5-15.5); WBC 8.2 k/uL (3.8-10.6)
[2019-09-03 16:38] LABS: Appearance,Urine Clear (Clear); Bilirubin,Urine Negative (Negative); Blood,Urine Negative (Negative); Color,Urine Yellow; Glucose,Urine (UA) Negative (Negative); Ketones,Urine Negative (Negative); Leukocyte Esterase,Urine Negative (Negative); Nitrite,Urine Negative (Negative); PH, Urine 6.5 (5.0-8.0); Protein,Urine Negative (Negative); Urobilinogen,Urine <2.0 mg/dL (<2.0)
[2019-09-03 16:58] LABS: Albumin 2.2 g/dL (3.5-5.0); Calcium 8.3 mg/dL (8.4-10.2); Magnesium 1.7 mg/dL (1.6-2.3); Potassium 3.8 mmol/L (3.5-5.1); Total Bilirubin 1.6 mg/dL (0.2-1.3); Total Protein 5.9 g/dL (6.3-8.2)
--- NOTE | 2019-09-03 17:26 | XR ---
EXAMINATION TYPE: XR foot complete LT DATE OF EXAM: 09/03/2019 CLINICAL HISTORY: Left great toe ulcer, pain. TECHNIQUE: Frontal, lateral, and oblique images of the left foot are obtained. COMPARISON: Prior left toe x-rays August 15, 2019 FINDINGS: Osseous structures redemonstrated demineralized which is noted to lower radiographic sensit ivity. Persistent 3 mm linear foreign body adjacent to the mid to distal aspect of the first proximal phalanx. Flexion and the toes is present. Moderate joint space narrowing throughout the toes is seen . No new suspicious cortical destruction or periosteal reaction with particular attention to the firs t toe. Moderate to large sized superior and inferior calcaneal spurs. Moderate midfoot joint space na rrowing. IMPRESSION: As above.
--- NOTE | 2019-09-03 17:40 | P.PN ---
Subjective Progress Note Date: 09/03/19 Patient was seen for a follow-up. Patient transferred to ICU because she had an episode of unresponsiveness today. Patient's myoclonic jerks seems to have much improved. Objective - Vital Signs Vital signs: Vital Signs Temp 98 F 09/03/19 12:06 Pulse 73 09/03/19 15:25 Resp 18 09/03/19 15:25 BP 134/47 09/03/19 12:06 Pulse Ox 93 L 09/03/19 12:06 Intake & Output 09/02/19 09/03/19 09/03/19 18:59 06:59 18:59 Intake Total 980 680 Balance 980 680 Intake: Intake, IV Titration 100 200 Amount Ampicillin-Sulbactam 3 gm 100 In Sodium Chloride 0.9% 100 ml @ 200 mls/hr IVPB Q8HR [facility] Rx#:[id number] Sodium Ferric Gluconat- 100 Sucrose 125 mg In Sodium Chloride 0.9% 100 ml @ 100 mls/hr IVPB DAILY [facility] Rx#:[id number] Sodium Ferric Gluconat- 100 Sucrose 125 mg In Sodium Chloride 0.9% 100 ml @ 100 mls/hr IVPB DAILY [facility] Rx#:[id number] Oral 880 480 Other: Voiding Method Incontinent Incontinent Indwelling Catheter # Voids 3 1 4 # Bowel Movements 1 - Exam Patient's mentation appears normal. Patient has hoarse voice. Patient is coughing, also congested. Speech and language functions are normal. Cranial nerves normal. Muscle strength appears normal. Her myoclonic jerks have much improved. Her ankles appears normal. Tone is normal. - Labs CBC & Chem 7: 09/03/19 14:55 09/03/19 14:55 Labs: Abnormal Lab Results - Last 24 Hours (Table) 09/01/19 09/01/19 09/02/19 Range/Units 13:30 13:30 20:11 RBC 2.27 L (3.80-5.40) m/uL Hgb 7.2 L (11.4-16.0) gm/dL Hct 22.9 L (34.0-46.0) % MCV 100.8 H (80.0-100.0) fL MCHC (31.0-37.0) g/dL RDW 19.5 H (11.5-15.5) % Plt Count 50 L (150-450) k/uL Lymphocytes # (Manual) (1.0-4.8) k/uL ABG pH (7.35-7.45) ABG HCO3 (21-25) mmol/L Sodium (137-145) mmol/L Carbon Dioxide (22-30) mmol/L BUN (7-17) mg/dL Creatinine (0.52-1.04) mg/dL Glucose (74-99) mg/dL POC Glucose (mg/dL) (75-99) mg/dL Calcium (8.4-10.2) mg/dL Iron 21 L (50-170) ug/dL % Saturation 8.68 L (12.00-45.00) Total Bilirubin (0.2-1.3) mg/dL Ammonia (<30) umol/L Total Protein (6.3-8.2) g/dL Albumin (3.5-5.0) g/dL Crossmatch See Detail 09/03/19 09/03/19 09/03/19 Range/Units 01:00 01:00 02:34 RBC 2.60 L (3.80-5.40) m/uL Hgb 8.0 L (11.4-16.0) gm/dL Hct 26.3 L (34.0-46.0) % MCV 101.2 H (80.0-100.0) fL MCHC 30.6 L (31.0-37.0) g/dL RDW 19.1 H (11.5-15.5) % Plt Count 62 L (150-450) k/uL Lymphocytes # (Manual) (1.0-4.8) k/uL ABG pH (7.35-7.45) ABG HCO3 (21-25) mmol/L Sodium 136 L 136 L (137-145) mmol/L Carbon Dioxide 31 H (22-30) mmol/L BUN 38 H 41 H (7-17) mg/dL Creatinine 1.42 H 1.51 H (0.52-1.04) mg/dL Glucose (74-99) mg/dL POC Glucose (mg/dL) (75-99) mg/dL Calcium 8.2 L 8.1 L (8.4-10.2) mg/dL Iron (50-170) ug/dL % Saturation (12.00-45.00) Total Bilirubin 1.7 H (0.2-1.3) mg/dL Ammonia (<30) umol/L Total Protein (6.3-8.2) g/dL Albumin 2.5 L (3.5-5.0) g/dL Crossmatch 09/03/19 09/03/19 09/03/19 Range/Units 02:34 06:56 09:46 RBC 2.32 L 2.34 L (3.80-5.40) m/uL Hgb 7.3 L 7.1 L (11.4-16.0) gm/dL Hct 23.8 L 22.9 L (34.0-46.0) % MCV 102.6 H (80.0-100.0) fL MCHC 30.9 L (31.0-37.0) g/dL RDW 19.7 H 19.4 H (11.5-15.5) % Plt Count 49 L 52 L (150-450) k/uL Lymphocytes # (Manual) 0.52 L 0.29 L (1.0-4.8) k/uL ABG pH (7.35-7.45) ABG HCO3 (21-25) mmol/L Sodium (137-145) mmol/L Carbon Dioxide (22-30) mmol/L BUN (7-17) mg/dL Creatinine (0.52-1.04) mg/dL Glucose (74-99) mg/dL POC Glucose (mg/dL) (75-99) mg/dL Calcium (8.4-10.2) mg/dL Iron (50-170) ug/dL % Saturation (12.00-45.00) Total Bilirubin (0.2-1.3) mg/dL Ammonia 58 H (<30) umol/L Total Protein (6.3-8.2) g/dL Albumin (3.5-5.0) g/dL Crossmatch 09/03/19 09/03/19 09/03/19 Range/Units 14:55 14:55 14:55 RBC 2.49 L (3.80-5.40) m/uL Hgb 7.7 L (11.4-16.0) gm/dL Hct 24.6 L (34.0-46.0) % MCV (80.0-100.0) fL MCHC (31.0-37.0) g/dL RDW 19.4 H (11.5-15.5) % Plt Count (150-450) k/uL Lymphocytes # (Manual) (1.0-4.8) k/uL ABG pH (7.35-7.45) ABG HCO3 (21-25) mmol/L Sodium (137-145) mmol/L Carbon Dioxide (22-30) mmol/L BUN 36 H (7-17) mg/dL Creatinine 1.43 H (0.52-1.04) mg/dL Glucose 110 H (74-99) mg/dL POC Glucose (mg/dL) (75-99) mg/dL Calcium 8.3 L (8.4-10.2) mg/dL Iron (50-170) ug/dL % Saturation (12.00-45.00) Total Bilirubin 1.7 H 1.6 H (0.2-1.3) mg/dL Ammonia (<30) umol/L Total Protein 5.9 L (6.3-8.2) g/dL Albumin 2.2 L (3.5-5.0) g/dL Crossmatch 09/03/19 09/03/19 Range/Units 15:38 15:42 RBC (3.80-5.40) m/uL Hgb (11.4-16.0) gm/dL Hct (34.0-46.0) % MCV (80.0-100.0) fL MCHC (31.0-37.0) g/dL RDW (11.5-15.5) % Plt Count (150-450) k/uL Lymphocytes # (Manual) (1.0-4.8) k/uL ABG pH 7.48 H (7.35-7.45) ABG HCO3 30 H (21-25) mmol/L Sodium (137-145) mmol/L Carbon Dioxide (22-30) mmol/L BUN (7-17) mg/dL Creatinine (0.52-1.04) mg/dL Glucose (74-99) mg/dL POC Glucose (mg/dL) 119 H (75-99) mg/dL Calcium (8.4-10.2) mg/dL Iron (50-170) ug/dL % Saturation (12.00-45.00) Total Bilirubin (0.2-1.3) mg/dL Ammonia (<30) umol/L Total Protein (6.3-8.2) g/dL Albumin (3.5-5.0) g/dL Crossmatch Assessment and Plan Assessment: * 74-year-old female admitted with subjective weakness of lower extremities. Patient does have history of peripheral neuropathy related to chemotherapy that she received for uterine cancer 7 years ago. Patient's recent workup revealed evidence of possible B12 deficiency, as her methylmalonic acid was significantly elevated 0.64, with a normal vitamin B12 level of 876. * Significant myoclonic jerks due to anemia, COPD, mild renal insufficiency and metabolic dysfunction, and adverse effect of gabapentin. * Severe anemia with positive occult blood in stool. * History of hepatic cirrhosis and esophageal varices status post banding treatment in the past. * Tobacco use. Plan: * Patient's myoclonic jerks have improved since cutting back on Neurontin. Continue gabapentin 300 mg twice a day. * Continue B12 injections daily. Patient continues to be anemic with hemoglobin 7.7. * Patient transferred to ICU because of worsening mental status. Chest x-ray showed acute on chronic interstitial prominence throughout, similar in degree to the prior, more exaggerated on the right than left secondary to rotation. Considerations are for atypical pneumonia, fibrosis or interstitial edema. Her ABG showed normal pCO2 41. * Patient may need EMG and nerve conductions of bilateral lower extremities as an outpatient. * Your medical management.
[2019-09-03 17:43] LABS: Large Platelets Present; Lymphocytes # (M) 0.74 k/uL (1.0-4.8); Monocytes # (M) 0.16 k/uL (0-1.0); Neutrophils % (M) 89 %; Nucleated Red Blood Cells 0 /100 WBC (0-0); Poikilocytosis (M) Present; Total Cells Counted 100
[2019-09-03] MEDS: AMPICILLIN-SULBACTAM 3 GM in SODIUM CHLORIDE 0.9% 100 ML IVPB SCH ×2 (17:50→23:14)
[2019-09-03 17:57] LABS: INR 1.2 (<1.2); Partial Thromboplastin Time 35.2 sec (22.0-30.0); Prothrombin Time 12.2 sec (9.0-12.0)
[2019-09-03] MEDS: IPRATROPIUM-ALBUTEROL 3 ML NEB INHALATION PRN (20:15)
[2019-09-03] MEDS ORDERED: GABAPENTIN 300 MG CAP PO SCH (21:00)
[2019-09-03] MEDS: PRIMIDONE 25 MG TAB PO SCH (21:20)
[2019-09-03] MEDS: FUROSEMIDE 20 MG TAB PO SCH (21:20)
[2019-09-03] MEDS: PANTOPRAZOLE 40 MG/10 ML VIAL IVP SCH (21:21)
[2019-09-03] MEDS: LACTULOSE 20 GM/30 ML CUP PO SCH (21:21)
[2019-09-03 21:37] LABS: Anisocytosis Slight; HCT 23.2 % (34.0-46.0); HGB 7.1 gm/dL (11.4-16.0); Hypochromasia Marked; MCH 30.5 pg (25.0-35.0); MCHC 30.6 g/dL (31.0-37.0); MCV 99.8 fL (80.0-100.0); Macrocytosis Moderate; Mean Platelet Volume 12.6; RBC 2.33 m/uL (3.80-5.40); RDW 19.4 % (11.5-15.5)
[2019-09-03 21:44] LABS: Platelet Count 56 k/uL (150-450)
[2019-09-03] MEDS ORDERED: LACTULOSE 20 GM/30 ML CUP PO SCH (22:00)
[2019-09-03] MEDS: DONEPEZIL 10 MG TAB PO SCH (22:47)
[2019-09-04 05:49] LABS: Anisocytosis Slight; HCT 24.1 % (34.0-46.0); HGB 7.5 gm/dL (11.4-16.0); Hypochromasia Marked; MCH 31.2 pg (25.0-35.0); MCHC 31.2 g/dL (31.0-37.0); MCV 100.2 fL (80.0-100.0); Macrocytosis Moderate; Mean Platelet Volume 11.5; RDW 19.3 % (11.5-15.5); WBC 7.2 k/uL (3.8-10.6)
--- NOTE | 2019-09-04 05:49 | P.PN ---
Subjective Progress Note Date: 09/03/19 Principal diagnosis: Anemia, decompensated cirrhosis Patient was more confused today on the medical floor likely secondary to hepatic encephalopathy. Lactulose was not being taken orally so was switched to rectal formulation. Patient was transferred to the intensive care unit however mentation has somewhat improved since that time. There was concern about some blood per rectum after fecal management system was inserted, likely from hemorrhoidal irritation. Last colonoscopy 2017. Objective - Vital Signs Vital signs: Vital Signs Temp 98.4 F 09/04/19 00:00 Pulse 64 09/04/19 05:00 Resp 11 L 09/04/19 05:00 BP 114/47 09/04/19 05:00 Pulse Ox 91 L 09/04/19 05:00 Intake & Output 09/03/19 09/03/19 09/04/19 06:59 18:59 06:59 Intake Total 810 340 Output Total 335 3448 Balance 475 -3108 Weight 84.1 kg Intake: IV 30 240 Normal Saline 30 240 Intake, IV Titration 300 100 Amount Ampicillin-Sulbactam 3 gm 200 100 In Sodium Chloride 0.9% 100 ml @ 200 mls/hr IVPB Q8HR [facility] Rx#:[id number] Sodium Ferric Gluconat- 100 Sucrose 125 mg In Sodium Chloride 0.9% 100 ml @ 100 mls/hr IVPB DAILY [facility] [place] Rx#:[id number] Oral 480 Output: Urine 335 948 Stool 2500 Other: Voiding Method Incontinent Indwelling Catheter Indwelling Catheter # Voids 1 4 # Bowel Movements 1 1 - Exam On physical examination, patient appears comfortable in no apparent distress. HEAD: Normocephalic, atraumatic. EYES: No scleral icterus. No conjunctival injection. MOUTH: No lesions, tongue midline. NECK: Trachea midline, no gross abnormalities. ABDOMEN: Soft, obese. Bowel sounds are positive. No organomegaly. No guarding or rigidity. EXTREMITIES: No pedal edema. SKIN: No rashes, no jaundice. NEUROLOGIC: Alert and oriented to person and place. No focal deficits. - Labs CBC & Chem 7: 09/03/19 21:24 09/03/19 14:55 Labs: Abnormal Lab Results - Last 24 Hours (Table) 09/03/19 09/03/19 09/03/19 Range/Units 01:00 01:00 02:34 RBC 2.60 L 2.32 L (3.80-5.40) m/uL Hgb 8.0 L 7.3 L (11.4-16.0) gm/dL Hct 26.3 L 23.8 L (34.0-46.0) % MCV 101.2 H 102.6 H (80.0-100.0) fL MCHC 30.6 L 30.9 L (31.0-37.0) g/dL RDW 19.1 H 19.7 H (11.5-15.5) % Plt Count 62 L 49 L (150-450) k/uL Lymphocytes # (Manual) 0.52 L (1.0-4.8) k/uL PT (9.0-12.0) sec INR (<1.2) APTT (22.0-30.0) sec ABG pH (7.35-7.45) ABG HCO3 (21-25) mmol/L Sodium 136 L (137-145) mmol/L BUN 38 H (7-17) mg/dL Creatinine 1.42 H (0.52-1.04) mg/dL Glucose (74-99) mg/dL POC Glucose (mg/dL) (75-99) mg/dL Calcium 8.2 L (8.4-10.2) mg/dL Total Bilirubin 1.7 H (0.2-1.3) mg/dL Ammonia (<30) umol/L Total Protein (6.3-8.2) g/dL Albumin 2.5 L (3.5-5.0) g/dL 09/03/19 09/03/19 09/03/19 Range/Units 06:56 09:46 14:55 RBC 2.34 L (3.80-5.40) m/uL Hgb 7.1 L (11.4-16.0) gm/dL Hct 22.9 L (34.0-46.0) % MCV (80.0-100.0) fL MCHC (31.0-37.0) g/dL RDW 19.4 H (11.5-15.5) % Plt Count 52 L (150-450) k/uL Lymphocytes # (Manual) 0.29 L (1.0-4.8) k/uL PT (9.0-12.0) sec INR (<1.2) APTT (22.0-30.0) sec ABG pH (7.35-7.45) ABG HCO3 (21-25) mmol/L Sodium (137-145) mmol/L BUN (7-17) mg/dL Creatinine (0.52-1.04) mg/dL Glucose (74-99) mg/dL POC Glucose (mg/dL) (75-99) mg/dL Calcium (8.4-10.2) mg/dL Total Bilirubin 1.7 H (0.2-1.3) mg/dL Ammonia 58 H (<30) umol/L Total Protein (6.3-8.2) g/dL Albumin (3.5-5.0) g/dL 09/03/19 09/03/19 09/03/19 Range/Units 14:55 14:55 15:38 RBC 2.49 L (3.80-5.40) m/uL Hgb 7.7 L (11.4-16.0) gm/dL Hct 24.6 L (34.0-46.0) % MCV (80.0-100.0) fL MCHC (31.0-37.0) g/dL RDW 19.4 H (11.5-15.5) % Plt Count 60 L (150-450) k/uL Lymphocytes # (Manual) 0.74 L (1.0-4.8) k/uL PT (9.0-12.0) sec INR (<1.2) APTT (22.0-30.0) sec ABG pH (7.35-7.45) ABG HCO3 (21-25) mmol/L Sodium (137-145) mmol/L BUN 36 H (7-17) mg/dL Creatinine 1.43 H (0.52-1.04) mg/dL Glucose 110 H (74-99) mg/dL POC Glucose (mg/dL) 119 H (75-99) mg/dL Calcium 8.3 L (8.4-10.2) mg/dL Total Bilirubin 1.6 H (0.2-1.3) mg/dL Ammonia (<30) umol/L Total Protein 5.9 L (6.3-8.2) g/dL Albumin 2.2 L (3.5-5.0) g/dL 09/03/19 09/03/19 09/03/19 Range/Units 15:42 17:21 21:24 RBC 2.33 L (3.80-5.40) m/uL Hgb 7.1 L (11.4-16.0) gm/dL Hct 23.2 L (34.0-46.0) % MCV (80.0-100.0) fL MCHC 30.6 L (31.0-37.0) g/dL RDW 19.4 H (11.5-15.5) % Plt Count 56 L (150-450) k/uL Lymphocytes # (Manual) (1.0-4.8) k/uL PT 12.2 H (9.0-12.0) sec INR 1.2 H (<1.2) APTT 35.2 H (22.0-30.0) sec ABG pH 7.48 H (7.35-7.45) ABG HCO3 30 H (21-25) mmol/L Sodium (137-145) mmol/L BUN (7-17) mg/dL Creatinine (0.52-1.04) mg/dL Glucose (74-99) mg/dL POC Glucose (mg/dL) (75-99) mg/dL Calcium (8.4-10.2) mg/dL Total Bilirubin (0.2-1.3) mg/dL Ammonia (<30) umol/L Total Protein (6.3-8.2) g/dL Albumin (3.5-5.0) g/dL Assessment and Plan (1) Symptomatic anemia Narrative/Plan: 74-year-old with a known history of decompensated alcohol cirrhosis and macro cytic anemia presenting due to weakness and found to be anemic. Patient has undergone prior colonoscopy in 05/2017 within normal limits and multiple endoscopies this year in 05/2019 and 07/2019 with variceal banding as well as findings of portal hypertensive gastropathy and treatment of duodenal an giodysplasia. Currently she is denying any signs or symptoms of GI bleeding. She likely has a multifactorial anemia secondary to chronic disease as well as hypersplenism in the setting of portal hypertension. Some concern over bright red blood per rectum after insertion of fecal management system, likely secondary to hemorrhoidal irritation. We'll continue to monitor. Current Visit: No Status: Acute Priority: High Code(s): D64.9 - ANEMIA, UNSPECIFIED SNOMED Code(s): 398492227 (2) Thrombocytopenia Current Visit: No Status: Acute Priority: Medium Code(s): D69.6 - THROMBOCYTOPENIA, UNSPECIFIED SNOMED Code(s): 581082116 (3) Esophageal varices determined by endoscopy Current Visit: No Status: Chronic Priority: Medium Code(s): I85.00 - ESOPHAGEAL VARICES WITHOUT BLEEDING SNOMED Code(s): 88956548 (4) Liver cirrhosis Current Visit: No Status: Chronic Priority: Medium Code(s): K74.60 - UNSPECIFIED CIRRHOSIS OF LIVER SNOMED Code(s): 21768599 Plan: Supportive care Clear liquid diet Sodium restricted diet 2 g daily Protonix daily Continue to monitor hemoglobin and hematocrit and transfuse as needed Continue iron supplementation Hematology service consulted to see the patient Continue Inderal 10 mg 3 times daily Lactulose titrated for 3-4 bowel movements daily Continue to monitor clinically Thank you for allowing us to participate in the care of the patient
[2019-09-04 05:52] LABS: Platelet Count 62 k/uL (150-450)
[2019-09-04] MEDS: LEVOTHYROXINE 25 MCG TAB PO SCH (05:58)
[2019-09-04 06:04] LABS: Albumin 2.1 g/dL (3.5-5.0); Calcium 7.9 mg/dL (8.4-10.2); Magnesium 1.6 mg/dL (1.6-2.3); Potassium 3.4 mmol/L (3.5-5.1); Total Bilirubin 1.2 mg/dL (0.2-1.3); Total Protein 5.6 g/dL (6.3-8.2)
[2019-09-04 06:10] LABS: Band Neutrophils % 1 %; Eosinophils # (M) 0.07 k/uL (0-0.7); Monocytes # (M) 0.29 k/uL (0-1.0); Neutrophils % (M) 88 %; Nucleated Red Blood Cells 0 /100 WBC (0-0); Total Cells Counted 200
[2019-09-04 07:12] LABS: C Reactive Protein 70.3 mg/L (<10.0)
[2019-09-04] MEDS ORDERED: Magnesium Replacement Protocol 1 EACH MISC MISCELLANE PRN (07:18)
[2019-09-04] MEDS ORDERED: Potassium Replacement Protocol 1 EACH MISC MISCELLANE PRN (07:18)
[2019-09-04] MEDS: SYMBICORT 160-4.5 MCG INHALER INHALATION SCH ×2 (08:01→20:37)
[2019-09-04] MEDS: IPRATROPIUM-ALBUTEROL 3 ML NEB INHALATION PRN ×3 (08:01→15:51)
[2019-09-04] MEDS: NICOTINE 14MG/24HR PATCH TRANSDERM SCH (08:18)
[2019-09-04] MEDS: CYANOCOBALAMIN 1,000 MCG/ML 1 ML VIAL IM SCH (08:18)
[2019-09-04] MEDS: ESCITALOPRAM 10 MG TAB PO SCH (08:19)
[2019-09-04] MEDS: FUROSEMIDE 40 MG TAB PO SCH (08:19)
[2019-09-04] MEDS: MEMANTINE 10 MG TAB PO SCH ×2 (08:19→22:32)
[2019-09-04] MEDS: POTASSIUM CHLORIDE ER 20 MEQ TAB.ER PO SCH ×3 (08:19→10:07)
[2019-09-04] MEDS: PROPRANOLOL 10 MG TAB PO SCH ×3 (08:19→23:15)
[2019-09-04] MEDS: NYSTATIN 100,000 UNIT/ML SUSP 500,000 UNIT/5 ML CUP PO SCH ×4 (08:19→22:37)
[2019-09-04] MEDS: LORATADINE 10 MG TAB PO SCH (08:19)
[2019-09-04] MEDS: MAGNESIUM SULFATE-D5W PMX 1 GM in DEXTROSE/WATER 1 100ML.BAG IVPB SCH ×2 (08:20→10:07)
[2019-09-04] MEDS: PANTOPRAZOLE 40 MG/10 ML VIAL IVP SCH ×2 (08:20→22:36)
[2019-09-04] MEDS: LACTULOSE 20 GM/30 ML CUP PO SCH ×2 (08:22→22:42)
[2019-09-04] MEDS: AMPICILLIN-SULBACTAM 3 GM in SODIUM CHLORIDE 0.9% 100 ML IVPB SCH ×2 (09:45→16:57)
[2019-09-04] MEDS: SODIUM FERRIC GLUCONAT-SUCROSE 125 MG in SODIUM CHLORIDE 0.9% 100 ML IVPB SCH (10:23)
[2019-09-04] MEDS: IOPAMIDOL CONTRAST (ORAL USE) VIAL PO PRN ×2 (10:28→11:29)
--- NOTE | 2019-09-04 10:47 | P.PN ---
Subjective Progress Note Date: 09/04/19 This is a 74-year-old female admitted with GI bleed, history of esophageal varices with banding, generalized weakness and multiple other medical issues. Evaluated by GI, declined EGD. Hemoglobin 6.9 this more, received 2 units, currently up to 8.2. No spontaneous bleeding reported. No hemoptysis, no he matochezia, no melena. Vital signs stable. Confused , jerking ,tremors.Evaluated by physical therapy with subacute rehab recommended at discharge. Renal function stable. Evaluated by neurology with recommendations noted and appreciated. Denies chest pain, palpitations or increased shortness of breath. 09/03/2019 Ammonia level yesterday elevated, 47 with lactulose initiated, continues to rise currently at 58. patient nearly lethargic, nearly obtunded. Confused, slurred speech, opens eyes and falls back to sleep, difficulty maintaining airway. ABGs ordered stat, transferred to ICU, tool crib manager notified. Pancultured as well, patient has overall small wound on the tip of her left great toe. Afebrile. Labs pending. 09/04/2019 transferred to ICU yesterday. Evaluated by neurology, GI with recommendations noted .Continues on lactulose with ammonia level now within normal limits. Black tarry loose stools, maroon noted in FMS tubing. Hemoglobin 7.5. Renal function improving, potassium 3.4. Significant improvement in sensorium. X-ray of left foot reporting demineralized, per sistent 3 mm linear foreign body adjacent to the mid to distal aspect of the first proximal phalanlx, no new suspicious cortical destruction or periosteal reaction, moderate calcaneal spurs, moderate midfoot joint space narrowing. Orthopedic surgery consulted, recommendations pending. Loose congested productive cough. Chest x-ray reporting acute on chronic interstitial prominence throughout, similar to prior, possible atypical pneumonia, fibrosis or interstitial edema. Elevated D-dimer, CRP. Scheduled for CT of chest, abdomen, pelvis. Objective - Vital Signs Vital signs: Vital Signs Temp 98.2 F 09/04/19 06:00 Pulse 72 09/04/19 08:10 Resp 11 L 09/04/19 07:00 BP 130/48 09/04/19 07:00 Pulse Ox 88 L 09/04/19 06:00 Intake & Output 09/03/19 09/04/19 09/04/19 18:59 06:59 18:59 Intake Total 810 360 120 Output Total 335 3528 50 Balance 475 -3168 70 Weight 84.1 kg 84.1 kg Intake: IV 30 260 20 Normal Saline 30 260 20 Intake, IV Titration 300 100 Amount Ampicillin-Sulbactam 3 gm 200 100 In Sodium Chloride 0.9% 100 ml @ 200 mls/hr IVPB Q8HR [facility] Rx#:[id number] Sodium Ferric Gluconat- 100 Sucrose 125 mg In Sodium Chloride 0.9% 100 ml @ 100 mls/hr IVPB DAILY [facility] Rx#:[id number] Oral 480 Other 100 Output: Urine 335 1028 50 Stool 2500 Other: Voiding Method Indwelling Catheter Indwelling Catheter Indwelling Catheter # Voids 4 # Bowel Movements 1 - Exam VITAL SIGNS: As above GENERAL:Sitting up in bed, no acute distress HEENT: Conjunctivae normal. eyes normal. Voice hoarse. Oral mucosa moist NECK: No JVD. No thyroid enlargement. No LNs CARDIOVASCULAR: S1, S2 regular.Systolic murmur RESPIRATION: Breath sounds diminished in the bases. Scattered rhonchi. No crackles. No expiratory wheezing. ABDOMEN: Soft, nontender . No guarding. no masses palpable. No ascites, No hepatosplenomegaly.Hyperactive Bowel sounds heard. LEGS: Bilateral lower extremity edema with no clubbing, no cyanosis. PSYCHIATRY: Alert and oriented X3, mood and affect normal. NERVOUS SYSTEM: Cranial N 2-12 grossly normal. Moves all 4 limbs. Improving Myoclonic jerks, tremors. Skin: Left great toe tip bluish, coccyx, stage II ,no rash - Labs CBC & Chem 7: 09/04/19 05:32 09/04/19 05:32 Labs: Abnormal Lab Results - Last 24 Hours (Table) 09/03/19 09/03/19 09/03/19 Range/Units 01:00 01:00 02:34 RBC 2.60 L 2.32 L (3.80-5.40) m/uL Hgb 8.0 L 7.3 L (11.4-16.0) gm/dL Hct 26.3 L 23.8 L (34.0-46.0) % MCV 101.2 H 102.6 H (80.0-100.0) fL MCHC 30.6 L 30.9 L (31.0-37.0) g/dL RDW 19.1 H 19.7 H (11.5-15.5) % Plt Count 62 L 49 L (150-450) k/uL Lymphocytes # (Manual) 0.52 L (1.0-4.8) k/uL PT (9.0-12.0) sec INR (<1.2) APTT (22.0-30.0) sec D-Dimer (<0.60) mg/L FEU ABG pH (7.35-7.45) ABG HCO3 (21-25) mmol/L Sodium 136 L (137-145) mmol/L Potassium (3.5-5.1) mmol/L Carbon Dioxide (22-30) mmol/L BUN 38 H (7-17) mg/dL Creatinine 1.42 H (0.52-1.04) mg/dL Glucose (74-99) mg/dL POC Glucose (mg/dL) (75-99) mg/dL Calcium 8.2 L (8.4-10.2) mg/dL Total Bilirubin 1.7 H (0.2-1.3) mg/dL Ammonia (<30) umol/L C-Reactive Protein (<10.0) mg/L Total Protein (6.3-8.2) g/dL Albumin 2.5 L (3.5-5.0) g/dL 09/03/19 09/03/19 09/03/19 Range/Units 09:46 14:55 14:55 RBC 2.49 L (3.80-5.40) m/uL Hgb 7.7 L (11.4-16.0) gm/dL Hct 24.6 L (34.0-46.0) % MCV (80.0-100.0) fL MCHC (31.0-37.0) g/dL RDW 19.4 H (11.5-15.5) % Plt Count 60 L (150-450) k/uL Lymphocytes # (Manual) 0.74 L (1.0-4.8) k/uL PT (9.0-12.0) sec INR (<1.2) APTT (22.0-30.0) sec D-Dimer (<0.60) mg/L FEU ABG pH (7.35-7.45) ABG HCO3 (21-25) mmol/L Sodium (137-145) mmol/L Potassium (3.5-5.1) mmol/L Carbon Dioxide (22-30) mmol/L BUN (7-17) mg/dL Creatinine (0.52-1.04) mg/dL Glucose (74-99) mg/dL POC Glucose (mg/dL) (75-99) mg/dL Calcium (8.4-10.2) mg/dL Total Bilirubin 1.7 H (0.2-1.3) mg/dL Ammonia 58 H (<30) umol/L C-Reactive Protein (<10.0) mg/L Total Protein (6.3-8.2) g/dL Albumin (3.5-5.0) g/dL 09/03/19 09/03/19 09/03/19 Range/Units 14:55 15:38 15:42 RBC (3.80-5.40) m/uL Hgb (11.4-16.0) gm/dL Hct (34.0-46.0) % MCV (80.0-100.0) fL MCHC (31.0-37.0) g/dL RDW (11.5-15.5) % Plt Count (150-450) k/uL Lymphocytes # (Manual) (1.0-4.8) k/uL PT (9.0-12.0) sec INR (<1.2) APTT (22.0-30.0) sec D-Dimer (<0.60) mg/L FEU ABG pH 7.48 H (7.35-7.45) ABG HCO3 30 H (21-25) mmol/L Sodium (137-145) mmol/L Potassium (3.5-5.1) mmol/L Carbon Dioxide (22-30) mmol/L BUN 36 H (7-17) mg/dL Creatinine 1.43 H (0.52-1.04) mg/dL Glucose 110 H (74-99) mg/dL POC Glucose (mg/dL) 119 H (75-99) mg/dL Calcium 8.3 L (8.4-10.2) mg/dL Total Bilirubin 1.6 H (0.2-1.3) mg/dL Ammonia (<30) umol/L C-Reactive Protein (<10.0) mg/L Total Protein 5.9 L (6.3-8.2) g/dL Albumin 2.2 L (3.5-5.0) g/dL 09/03/19 09/03/19 09/04/19 Range/Units 17:21 21:24 05:32 RBC 2.33 L 2.40 L (3.80-5.40) m/uL Hgb 7.1 L 7.5 L (11.4-16.0) gm/dL Hct 23.2 L 24.1 L (34.0-46.0) % MCV 100.2 H (80.0-100.0) fL MCHC 30.6 L (31.0-37.0) g/dL RDW 19.4 H 19.3 H (11.5-15.5) % Plt Count 56 L 62 L (150-450) k/uL Lymphocytes # (Manual) 0.50 L (1.0-4.8) k/uL PT 12.2 H (9.0-12.0) sec INR 1.2 H (<1.2) APTT 35.2 H (22.0-30.0) sec D-Dimer (<0.60) mg/L FEU ABG pH (7.35-7.45) ABG HCO3 (21-25) mmol/L Sodium (137-145) mmol/L Potassium (3.5-5.1) mmol/L Carbon Dioxide (22-30) mmol/L BUN (7-17) mg/dL Creatinine (0.52-1.04) mg/dL Glucose (74-99) mg/dL POC Glucose (mg/dL) (75-99) mg/dL Calcium (8.4-10.2) mg/dL Total Bilirubin (0.2-1.3) mg/dL Ammonia (<30) umol/L C-Reactive Protein (<10.0) mg/L Total Protein (6.3-8.2) g/dL Albumin (3.5-5.0) g/dL 09/04/19 09/04/19 Range/Units 05:32 05:32 RBC (3.80-5.40) m/uL Hgb (11.4-16.0) gm/dL Hct (34.0-46.0) % MCV (80.0-100.0) fL MCHC (31.0-37.0) g/dL RDW (11.5-15.5) % Plt Count (150-450) k/uL Lymphocytes # (Manual) (1.0-4.8) k/uL PT (9.0-12.0) sec INR (<1.2) APTT (22.0-30.0) sec D-Dimer 7.99 H (<0.60) mg/L FEU ABG pH (7.35-7.45) ABG HCO3 (21-25) mmol/L Sodium (137-145) mmol/L Potassium 3.4 L (3.5-5.1) mmol/L Carbon Dioxide 31 H (22-30) mmol/L BUN 32 H (7-17) mg/dL Creatinine 1.36 H (0.52-1.04) mg/dL Glucose (74-99) mg/dL POC Glucose (mg/dL) (75-99) mg/dL Calcium 7.9 L (8.4-10.2) mg/dL Total Bilirubin (0.2-1.3) mg/dL Ammonia (<30) umol/L C-Reactive Protein 70.3 H (<10.0) mg/L Total Protein 5.6 L (6.3-8.2) g/dL Albumin 2.1 L (3.5-5.0) g/dL Assessment and Plan Assessment: Acute on chronic GI bleed, in a patient with history of AV malformation ,esophageal varices, banding , initially declined endoscopy, now agreeable to EGD-pending. Acute on chronic blood loss anemia secondary to the above, history of iron deficient, status post transfusion packed RBCs Myoclonic jerks, secondary to the above, improving Essential tremors Thrombocytopenia Acute renal failure Acute metabolic encephalopathy secondary to the above Acute hepatic encephalopathy Possible acute atypical pneumonia, possibly aspiration pneumonia, possible Left great toe wound with foreign body per x-ray, orthopedic surgery following Coccyx wound stage II. Gastroesophageal reflux disease Hepatic cirrhosis Oral candidiasis Generalized weakness, in a patient with history of chemotherapy induced peripheral neuropathy History of uterine cancer Possible B12 deficiency Ongoing nicotine dependence Chronic CHF, diastolic dysfunction Hypoalbuminemia with moderate protein calorie malnutrition COPD Restless leg syndrome Hypothyroidism Hypokalemia Plan: Continue on current medication regime ,monitoring and symptomatic treatment. CT chest, abdomen, pelvis pending.Patient now agreeable to proceed with endoscopy-EGD in a.m. ammonia level now within normal limits, sensorium within normal limits, Neurontin resumed as recommended per neurology. Potassium supplementation as per replacement protocol. Prognosis guarded given multiple complex medical issues. The impression and plan of care has been dictated as directed. : I performed a history and examination of this patient, discussed the same with the dictator. I agree with the dictator's note ,documented as a scribe. Any additional findings or plans will be noted.
--- NOTE | 2019-09-04 10:51 | P.CNPUL ---
History of Present Illness Consult date: 09/04/19 Reason for consult: COPD, hypoxemia Chief complaint: Altered mental status History of present illness: This is a 74-year-old female who was seen evaluated examined in the ICU patient was admitted originally on the 09/01/2019 due to generalized weakness, patient was having increasing progressive asked weakness, her significant history of gastric cancer diagnosed about 7 years ago status post chemotherapy, she has issues associated with the peripheral neuropathy she was noted to be anemic as well as thrombocytopenic, chest x-ray indicated above the prominent diffuse marking, LV functions are good on echo ejection fraction is 60%, she developed problems with GI bleed which is thought to be gastric crisis with history of cirrhosis in the past, progressively patient was found to be more somnolent and lethargic transferred to the ICU, posttransfusion ICU patient woke up and alert oriented 3, she is waiting for CAT scan of the chest abdominal and pelvis, patient will likely undergo endoscopy, reviewed data revealed that her hemoglobin and is stable for 7.5 platelets are 62,000, her foot x-ray shows a foreign body orthopedic services following, computed tomography scan of the brain revealed atrophic changes noted acute lesion identified Review of Systems All systems: negative Past Medical History Past Medical History: Atrial Fibrillation, Cancer, Heart Failure, COPD, CVA/TIA, GERD/Reflux, GI Bleed, Hyperlipidemia, Hypertension, Osteoarthritis (OA) Additional Past Medical History / Comment(s): hx. uterine cancer, chemo 6 years ago, TIA several yrs. ago-forgetful, neuropathy feet & legs & hands, ANEMIA History of Any Multi-Drug Resistant Organisms: None Reported Past Surgical History: Hysterectomy, Tonsillectomy Additional Past Surgical History / Comment(s): COLONOSCOPY. EGD. BILAT CATARACTS REMOVED Past Anesthesia/Blood Transfusion Reactions: No Reported Reaction Past Psychological History: Anxiety, Depression Smoking Status: Current every day smoker (61 years) Past Alcohol Use History: None Reported Past Drug Use History: None Reported - Past Family History Mother Family Medical History: Cancer Father History Unknown: Yes Family Medical History: Cancer Brother(s) Family Medical History: Cancer Medications and Allergies Home Medications Medication Instructions Recorded Confirmed Type Ferrous Sulfate [Feosol] 325 mg PO BID 10/29/16 09/02/19 History Donepezil [Aricept] 10 mg PO HS 11/07/17 09/02/19 History Levothyroxine Sodium [Synthroid] 25 mcg PO DAILY 11/07/17 09/02/19 History Omeprazole [PriLOSEC] 40 mg PO DAILY 11/07/17 09/02/19 History Cetirizine HCl [Zyrtec] 10 mg PO DAILY 01/14/19 09/02/19 History Escitalopram [Lexapro] 10 mg PO DAILY 01/14/19 09/02/19 History Gabapentin [Neurontin] 800 mg PO TID 01/14/19 09/02/19 History Memantine [Namenda] 10 mg PO BID 01/14/19 09/02/19 History Acetaminophen Tab [Tylenol] 650 mg PO Q6H PRN 05/01/19 09/02/19 History Ipratropium-Albuterol Nebulize 3 ml INHALATION RT-QID PRN 05/01/19 09/02/19 History [Duoneb 0.5 mg-3 mg/3 ml Soln] Baclofen 5 mg PO TID 06/28/19 09/02/19 History Promethazine 6.25MG/5Ml [Phenergan 6.25 mg PO HS PRN 06/28/19 09/02/19 History Syrup] SILVER sulfADIAZINE Cream 1 applic TOPICAL BID 06/28/19 09/02/19 History [Silvadene 1% Cream] rOPINIRole HCL [Requip] 0.25 mg PO HS 06/28/19 09/02/19 History Propranolol [Inderal] 10 mg PO TID #90 tab 06/30/19 09/02/19 Rx traMADol HCl [Ultram] 50 mg PO BID PRN 07/21/19 09/02/19 History Loperamide [Imodium] 2 mg PO QAM PRN 08/10/19 09/02/19 History Budesonide-Formot 160-4.5 Mcg 2 puff INHALATION RT-BID #1 inh 08/13/19 09/02/19 Rx [Symbicort 160-4.5 Mcg Inhaler] Furosemide [Lasix] 40 mg PO DAILY #90 tab 08/13/19 09/02/19 Rx Lisinopril [Zestril] 20 mg PO DAILY #90 tab 08/13/19 09/02/19 Rx Nicotine 14Mg/24Hr Patch [Habitrol] 1 patch TRANSDERM DAILY #30 patch 08/13/19 09/02/19 Rx Potassium Chloride ER [K-Dur 20] 20 meq PO DAILY #30 tab 08/13/19 09/02/19 Rx Furosemide [Lasix] 20 mg PO HS 08/16/19 09/02/19 History predniSONE See Taper PO DAILY 08/16/19 09/02/19 History Azithromycin [Zithromax] 500 mg PO DAILY #5 tab 08/18/19 09/02/19 Rx Cefuroxime Axetil [Ceftin] 500 mg PO BID 5 Days #10 tab 08/18/19 09/02/19 Rx Allergies Allergy/AdvReac Type Severity Reaction Status Date / Time No Known Allergies Allergy Verified 09/01/19 17:13 Physical Exam Vitals: Vital Signs Temp Pulse Pulse Pulse Resp BP BP 09/04/19 08:10 72 09/04/19 08:01 76 09/04/19 07:00 80 11 L 130/48 09/04/19 06:00 98.2 F 78 16 112/46 09/04/19 05:00 64 11 L 114/47 09/04/19 04:00 69 13 114/44 09/04/19 03:45 11 L 09/04/19 03:00 64 11 L 117/47 09/04/19 02:00 68 13 119/58 09/04/19 01:00 69 12 112/46 09/04/19 00:13 69 12 112/46 09/04/19 00:00 98.4 F 67 14 123/47 09/03/19 23:00 75 14 120/46 09/03/19 22:00 98.1 F 70 11 L 117/44 09/03/19 21:00 70 10 L 121/45 09/03/19 20:27 76 09/03/19 20:16 74 09/03/19 20:00 98.1 F 68 67 9 L 131/48 09/03/19 19:00 71 12 123/46 09/03/19 18:00 70 9 L 124/56 09/03/19 17:00 76 11 L 146/57 09/03/19 16:00 97.7 F 82 12 143/61 09/03/19 15:25 72 73 18 09/03/19 12:06 98 F 73 18 134/47 Pulse Ox 09/04/19 08:10 09/04/19 08:01 09/04/19 07:00 09/04/19 06:00 88 L 09/04/19 05:00 91 L 09/04/19 04:00 88 L 09/04/19 03:45 09/04/19 03:00 88 L 09/04/19 02:00 90 L 09/04/19 01:00 91 L 09/04/19 00:13 91 L 09/04/19 00:00 90 L 09/03/19 23:00 91 L 09/03/19 22:00 92 L 09/03/19 21:00 96 09/03/19 20:27 09/03/19 20:16 09/03/19 20:00 92 L 09/03/19 19:00 91 L 09/03/19 18:00 95 09/03/19 17:00 94 L 09/03/19 16:00 94 L 09/03/19 15:25 09/03/19 12:06 93 L Intake and Output 09/03/19 09/04/19 09/04/19 22:59 06:59 14:59 Intake Total 210 280 120 Output Total 605 3258 50 Balance -395 -2978 70 Intake: IV 110 180 20 Normal Saline 110 180 20 Intake, IV Titration 100 100 Amount Ampicillin-Sulbactam 3 gm 100 100 In Sodium Chloride 0.9% 100 ml @ 200 mls/hr IVPB Q8HR [facility] Rx#:[id number] Other 100 Output: Urine 605 758 50 Stool 2500 Other: Voiding Method Indwelling Catheter Indwelling Catheter Indwelling Catheter # Voids 4 # Bowel Movements 1 Weight 84.1 kg 84.1 kg - Constitutional General appearance: average body habitus, cooperative, disheveled - EENT Eyes: PERRLA, poor dentition Ears: bilateral: normal - Neck Neck: normal ROM Carotids: bilateral: upstroke normal Thyroid: bilateral: normal size - Respiratory Respiratory: bilateral: CTA - Cardiovascular Rhythm: regular Heart sounds: normal: S1, S2 - Gastrointestinal General gastrointestinal: normal bowel sounds - Integumentary Integumentary: normal turgor - Neurologic Neurologic: CNII-XII intact - Musculoskeletal Musculoskeletal: gait normal, generalized weakness, strength equal bilaterally - Psychiatric Psychiatric: A&O x's 3, appropriate affect, intact judgment & insight Results - Laboratory Findings CBC and BMP: 09/04/19 05:32 09/04/19 05:32 ABG ABG pH 7.48 (7.35-7.45) H 09/03/19 15:42 ABG pCO2 41 mmHg (35-45) 09/03/19 15:42 ABG pO2 83 mmHg (83-108) 09/03/19 15:42 ABG O2 Saturation 95.7 % (94-97) 09/03/19 15:42 PT/INR, D-dimer PT 12.2 sec (9.0-12.0) H 09/03/19 17:21 INR 1.2 (<1.2) H 09/03/19 17:21 D-Dimer 7.99 mg/L FEU (<0.60) H 09/04/19 05:32 Abnormal lab findings: Abnormal Labs 09/01/19 09/01/19 09/01/19 13:30 13:30 13:30 RBC 2.05 L Hgb 6.4 L* D Hct 21.1 L MCV 102.6 H MCHC 30.3 L RDW 19.1 H Plt Count 67 L D Neutrophils # (Manual) 8.00 H Lymphocytes # (Manual) 0.43 L PT 13.3 H INR 1.3 H APTT D-Dimer ABG pH ABG HCO3 Sodium 134 L Potassium Carbon Dioxide BUN 44 H Creatinine 1.51 H Glucose 119 H POC Glucose (mg/dL) Calcium 7.9 L Iron % Saturation Total Bilirubin Ammonia C-Reactive Protein Total Protein 6.2 L Albumin 2.3 L Stool Occult Blood Crossmatch 09/01/19 09/01/19 09/01/19 13:30 13:30 14:00 RBC Hgb Hct MCV MCHC RDW Plt Count Neutrophils # (Manual) Lymphocytes # (Manual) PT INR APTT D-Dimer ABG pH ABG HCO3 Sodium Potassium Carbon Dioxide BUN Creatinine Glucose POC Glucose (mg/dL) Calcium Iron 21 L % Saturation 8.68 L Total Bilirubin Ammonia C-Reactive Protein Total Protein Albumin Stool Occult Blood Positive H Crossmatch See Detail 09/02/19 09/02/19 09/02/19 02:01 11:53 11:53 RBC 2.15 L 2.62 L Hgb 6.9 L* 8.2 L Hct 21.8 L 26.4 L MCV 101.3 H 101.1 H MCHC 30.9 L RDW 18.8 H 19.5 H Plt Count 47 L 57 L Neutrophils # (Manual) 7.83 H Lymphocytes # (Manual) 0.92 L 0.52 L PT INR APTT D-Dimer ABG pH ABG HCO3 Sodium 135 L Potassium Carbon Dioxide BUN 42 H Creatinine 1.56 H Glucose 104 H POC Glucose (mg/dL) Calcium 8.0 L Iron % Saturation Total Bilirubin Ammonia C-Reactive Protein Total Protein Albumin Stool Occult Blood Crossmatch 09/02/19 09/02/19 09/03/19 15:48 20:11 01:00 RBC 2.27 L 2.60 L Hgb 7.2 L 8.0 L Hct 22.9 L 26.3 L MCV 100.8 H 101.2 H MCHC 30.6 L RDW 19.5 H 19.1 H Plt Count 50 L 62 L Neutrophils # (Manual) Lymphocytes # (Manual) PT INR APTT D-Dimer ABG pH ABG HCO3 Sodium Potassium Carbon Dioxide BUN Creatinine Glucose POC Glucose (mg/dL) Calcium Iron % Saturation Total Bilirubin Ammonia 47 H C-Reactive Protein Total Protein Albumin Stool Occult Blood Crossmatch 09/03/19 09/03/19 09/03/19 01:00 02:34 02:34 RBC 2.32 L Hgb 7.3 L Hct 23.8 L MCV 102.6 H MCHC 30.9 L RDW 19.7 H Plt Count 49 L Neutrophils # (Manual) Lymphocytes # (Manual) 0.52 L PT INR APTT D-Dimer ABG pH ABG HCO3 Sodium 136 L 136 L Potassium Carbon Dioxide 31 H BUN 38 H 41 H Creatinine 1.42 H 1.51 H Glucose POC Glucose (mg/dL) Calcium 8.2 L 8.1 L Iron % Saturation Total Bilirubin 1.7 H Ammonia C-Reactive Protein Total Protein Albumin 2.5 L Stool Occult Blood Crossmatch 09/03/19 09/03/19 09/03/19 06:56 09:46 14:55 RBC 2.34 L Hgb 7.1 L Hct 22.9 L MCV MCHC RDW 19.4 H Plt Count 52 L Neutrophils # (Manual) Lymphocytes # (Manual) 0.29 L PT INR APTT D-Dimer ABG pH ABG HCO3 Sodium Potassium Carbon Dioxide BUN Creatinine Glucose POC Glucose (mg/dL) Calcium Iron % Saturation Total Bilirubin 1.7 H Ammonia 58 H C-Reactive Protein Total Protein Albumin Stool Occult Blood Crossmatch 09/03/19 09/03/19 09/03/19 14:55 14:55 15:38 RBC 2.49 L Hgb 7.7 L Hct 24.6 L MCV MCHC RDW 19.4 H Plt Count 60 L Neutrophils # (Manual) Lymphocytes # (Manual) 0.74 L PT INR APTT D-Dimer ABG pH ABG HCO3 Sodium Potassium Carbon Dioxide BUN 36 H Creatinine 1.43 H Glucose 110 H POC Glucose (mg/dL) 119 H Calcium 8.3 L Iron % Saturation Total Bilirubin 1.6 H Ammonia C-Reactive Protein Total Protein 5.9 L Albumin 2.2 L Stool Occult Blood Crossmatch 09/03/19 09/03/19 09/03/19 15:42 17:21 21:24 RBC 2.33 L Hgb 7.1 L Hct 23.2 L MCV MCHC 30.6 L RDW 19.4 H Plt Count 56 L Neutrophils # (Manual) Lymphocytes # (Manual) PT 12.2 H INR 1.2 H APTT 35.2 H D-Dimer ABG pH 7.48 H ABG HCO3 30 H Sodium Potassium Carbon Dioxide BUN Creatinine Glucose POC Glucose (mg/dL) Calcium Iron % Saturation Total Bilirubin Ammonia C-Reactive Protein Total Protein Albumin Stool Occult Blood Crossmatch 09/04/19 09/04/19 09/04/19 05:32 05:32 05:32 RBC 2.40 L Hgb 7.5 L Hct 24.1 L MCV 100.2 H MCHC RDW 19.3 H Plt Count 62 L Neutrophils # (Manual) Lymphocytes # (Manual) 0.50 L PT INR APTT D-Dimer 7.99 H ABG pH ABG HCO3 Sodium Potassium 3.4 L Carbon Dioxide 31 H BUN 32 H Creatinine 1.36 H Glucose POC Glucose (mg/dL) Calcium 7.9 L Iron % Saturation Total Bilirubin Ammonia C-Reactive Protein 70.3 H Total Protein 5.6 L Albumin 2.1 L Stool Occult Blood Crossmatch - Diagnostic Findings Chest x-ray: report reviewed, image reviewed Assessment and Plan Assessment: Altered mental status likely metabolic multifactorial, improved significantly Elevated d-dimer patient is waiting for computed tomography scan of the chest abdominal and pelvis GI bleed likely associated with the esophageal lysis due to prior history of the cirrhosis of the liver as well as history of gastric cancer, endoscopy is being planned Peripheral neuropathy post-chemo, neurology is following Plan: Overall continued to provide supportive care, continue DVT peptic ulcer disease prophylaxis increase activity as tolerated, monitor hemoglobin closely along with platelets, agree with endoscopy, computed tomography scan of the chest done pelvis been reviewed with further recommendations pending plan of care as per clinical response of the patient if patient remains stable can moved up to the ICU post-computed tomography scan Time with Patient: Greater than 30
[2019-09-04] MEDS: GABAPENTIN 300 MG CAP PO SCH ×2 (13:08→22:34)
--- NOTE | 2019-09-04 13:10 | CT ---
EXAMINATION TYPE: CT ChestAbdPelvis w con DATE OF EXAM: 09/04/2019 COMPARISON: CT dated 05/03/2019 HISTORY: Uterine Sacrocarcinoma CT DLP: 1404.2 mGycm. Automated Exposure Control for Dose Reduction was Utilized. CONTRAST: CT scan of the thorax, abdomen and pelvis is performed with IV Contrast, patient injected with 65 mL of Isovue 300. FINDINGS: LUNGS: Diffuse interlobular septal thickening throughout with geographic groundglass opacities also t hroughout. Development of a small left and trace right pleural effusion with left upper lobe, left lo wer lobe and lingular consolidations. Limited evaluation for pulmonary nodule given the lung findings . MEDIASTINUM: Hilar adenopathy is seen as a focal area of hypoattenuation adjacent to the right main p ulmonary artery on image 20 that appears external to the pulmonary arteries on coronal imaging measur ing 1.6 cm. Subcarinal lymph node measures 1.6 cm in short axis. Moderate coronary artery calcificati ons. Heart is mildly enlarged. No pericardial effusion is seen. Right-sided Mediport noted. Advanc ed atheromatous changes of the thoracic aorta. LIVER/GB: Cirrhotic morphology of the liver is seen with large volume abdominal ascites, mesenteric e elton, diffuse severe anasarca, gastrohepatic as well as splenic and esophageal varices, and irregular ity of the distal esophageal mucosa. Cholelithiasis seen. PANCREAS: Diminutive in size. SPLEEN: Spleen is nonenlarged measuring 11.0 cm in craniocaudal dimension. ADRENALS: No significant abnormality is seen. KIDNEYS: 3 nonobstructing right renal calculi measure up to 4 mm. Left renal cyst measures 2.6 cm. No hydronephrosis of either kidney. BOWEL: Rectal tube seen in place small bowel loops are centralized given the ascites. Multifocal smal l bowel wall thickening is likely reactive due to the adjacent ascites. Similarly thickening of the s tomach may be from ascites or other etiology. GENITAL ORGANS: Uterus is presumed to be surgically absent. LYMPH NODES: Markedly limited evaluation given mesenteric edema, limited contrast given, and ascites. OSSEOUS STRUCTURES: Diffuse osseous demineralization again noted. Levoscoliosis of the lumbar spine w ith degenerative change of the hips and spine. OTHER: Air within the urinary bladder is likely from recent instrumentation in this patient with a Fo vijaya catheter. Extensive atherosclerosis of the abdominal aorta and its branches. IMPRESSION: 1. Worsening fluid overload with diffuse interstitial pulmonary edema, small left pleural effusion, t race right pleural effusion, large volume ascites, mesenteric edema, and severe anasarca. 2. Multifocal left sided pulmonary opacities likely related to multifocal pneumonia. 3. Cirrhotic morphology of the liver and sequela portal venous hypertension with multifocal varices a nd esophageal irregularity of the distal esophagus. 4. Multifocal small bowel wall thickening may be reactive from the adjacent ascites or hypoproteinemi a. Diffuse thickening of the stomach is also seen partially related to incomplete distention.
[2019-09-04 13:27] LABS: Ferritin 651.6 ng/mL (10.0-291.0)
--- NOTE | 2019-09-04 13:55 | P.CNOR ---
<Jordan Jackson - Last Filed: 09/04/19 13:55> History of Present Illness - [facility] Consult date: 09/04/19 History of present illness: This patient is a 74-year-old female that is admitted under the care of Dr. Davila for GI bleed and generalized weakness. Orthopedic surgery has been consulted in regards to her left great toe. She states she injured the toe in July, when she was walking up stairs and stubbed her toe. She developed a superficial abrasion to the tip of the distal great toe, that has not yet healed. She states the toe is painful to the touch, and also bothersome with ambulation. X-rays of the left foot were obtained yesterday 09/03/19, and showed a foreign body adjacent to the proximal phalanx of the great toe. Orthopedic surgery was consulted for further recommendations. At the time of my exam, the patient is not complaining of any significant pain in the left great toe. She states it is only tender when touched. She states she has not stepped on any foreign bodies that she is aware of. She note a history of significant peripheral neuropathy. She denies any additional complaints. She denies chest pain, shortness of breath, fevers, chills. Vital signs stable. Past Medical History Past Medical History: Atrial Fibrillation, Cancer, Heart Failure, COPD, CVA/TIA, GERD/Reflux, GI Bleed, Hyperlipidemia, Hypertension, Osteoarthritis (OA) Additional Past Medical History / Comment(s): hx. uterine cancer, chemo 6 years ago, TIA several yrs. ago-forgetful, neuropathy feet & legs & hands, ANEMIA History of Any Multi-Drug Resistant Organisms: None Reported Past Surgical History: Hysterectomy, Tonsillectomy Additional Past Surgical History / Comment(s): COLONOSCOPY. EGD. BILAT CATARACTS REMOVED Past Anesthesia/Blood Transfusion Reactions: No Reported Reaction Past Psychological History: Anxiety, Depression Smoking Status: Current every day smoker (61 years) Past Alcohol Use History: None Reported Past Drug Use History: None Reported - Past Family History Mother Family Medical History: Cancer Father History Unknown: Yes Family Medical History: Cancer Brother(s) Family Medical History: Cancer Medications and Allergies Home Medications Medication Instructions Recorded Confirmed Type Ferrous Sulfate [Feosol] 325 mg PO BID 10/29/16 09/14/19 History Donepezil [Aricept] 10 mg PO HS 11/07/17 09/14/19 History Levothyroxine Sodium [Synthroid] 25 mcg PO DAILY 11/07/17 09/14/19 History Cetirizine HCl [Zyrtec] 10 mg PO DAILY 01/14/19 09/14/19 History Escitalopram [Lexapro] 10 mg PO DAILY 01/14/19 09/14/19 History Memantine [Namenda] 10 mg PO BID 01/14/19 09/14/19 History Acetaminophen Tab [Tylenol] 650 mg PO Q6H PRN 05/01/19 09/14/19 History Ipratropium-Albuterol Nebulize 3 ml INHALATION RT-QID PRN 05/01/19 09/14/19 History [Duoneb 0.5 mg-3 mg/3 ml Soln] Baclofen 5 mg PO TID PRN 06/28/19 09/14/19 History SILVER sulfADIAZINE Cream 1 applic TOPICAL BID 06/28/19 09/14/19 History [Silvadene 1% Cream] rOPINIRole HCL [Requip] 0.25 mg PO HS 06/28/19 09/14/19 History Propranolol [Inderal] 10 mg PO TID #90 tab 06/30/19 09/14/19 Rx traMADol HCl [Ultram] 50 mg PO BID PRN 07/21/19 09/14/19 History Budesonide-Formot 160-4.5 Mcg 2 puff INHALATION RT-BID #1 inh 08/13/19 09/14/19 Rx [Symbicort 160-4.5 Mcg Inhaler] Lisinopril [Zestril] 20 mg PO DAILY #90 tab 08/13/19 09/14/19 Rx Nicotine 14Mg/24Hr Patch [Habitrol] 1 patch TRANSDERM DAILY #30 patch 08/13/19 09/14/19 Rx Potassium Chloride ER [K-Dur 20] 20 meq PO DAILY #30 tab 08/13/19 09/14/19 Rx Furosemide [Lasix] 20 mg PO HS 08/16/19 09/14/19 History Primidone [Mysoline] 25 mg PO Q24H #0 dose 09/07/19 09/14/19 Rx Furosemide [Lasix] 40 mg PO DAILY 09/14/19 09/14/19 History Lactulose [Cephulac] 20 gm PO BID PRN 09/14/19 09/14/19 History Magnesium Oxide [Magox 400] 400 mg PO DAILY 09/14/19 09/14/19 History Metolazone [Zaroxolyn] 2.5 mg PO DAILY 09/14/19 09/14/19 History Pantoprazole Sodium [Protonix] 40 mg PO BID #60 tablet. 09/18/19 Rx Sennosides-Docusate Sodium 2 tab PO BID #60 tablet 09/18/19 Rx [Senokot-S] Allergies Allergy/AdvReac Type Severity Reaction Status Date / Time No Known Allergies Allergy Verified 09/14/19 15:00 Physical Examination At the time of my exam, the patient is sitting in bed in no apparent distress. She is alert and orientated x3. Nasal cannula in place. Her head appears normocephalic and atraumaic. Her breathing appears nonlabored. A focused examination of the left foot is obtained. There is a superficial ulceration to the plantar aspect of the distal great toe. There is no drainage at this time. There is no tenderness to palpation of the proximal phalanx, there is no foreign body palpated. There is no skin breakdown over the area of the for eign body. Motor and sensory function appear intact of the left lower extremity. Left lower extremity is warm and well perfused with brisk capillary refill. Results Left foot x-ray 09/03/19: Foreign body adjacent to proximal phalanx of the hallux. No acute fractures. - Labs Labs: Abnormal Lab Results - Last 24 Hours (Table) 09/03/19 09/03/19 09/03/19 Range/Units 01:00 01:00 02:34 RBC 2.60 L 2.32 L (3.80-5.40) m/uL Hgb 8.0 L 7.3 L (11.4-16.0) gm/dL Hct 26.3 L 23.8 L (34.0-46.0) % MCV 101.2 H 102.6 H (80.0-100.0) fL MCHC 30.6 L 30.9 L (31.0-37.0) g/dL RDW 19.1 H 19.7 H (11.5-15.5) % Plt Count 62 L 49 L (150-450) k/uL Lymphocytes # (Manual) 0.52 L (1.0-4.8) k/uL PT (9.0-12.0) sec INR (<1.2) APTT (22.0-30.0) sec D-Dimer (<0.60) mg/L FEU ABG pH (7.35-7.45) ABG HCO3 (21-25) mmol/L Sodium 136 L (137-145) mmol/L Potassium (3.5-5.1) mmol/L Carbon Dioxide (22-30) mmol/L BUN 38 H (7-17) mg/dL Creatinine 1.42 H (0.52-1.04) mg/dL Glucose (74-99) mg/dL POC Glucose (mg/dL) (75-99) mg/dL Calcium 8.2 L (8.4-10.2) mg/dL Total Bilirubin 1.7 H (0.2-1.3) mg/dL C-Reactive Protein (<10.0) mg/L Total Protein (6.3-8.2) g/dL Albumin 2.5 L (3.5-5.0) g/dL 09/03/19 09/03/19 09/03/19 Range/Units 14:55 14:55 14:55 RBC 2.49 L (3.80-5.40) m/uL Hgb 7.7 L (11.4-16.0) gm/dL Hct 24.6 L (34.0-46.0) % MCV (80.0-100.0) fL MCHC (31.0-37.0) g/dL RDW 19.4 H (11.5-15.5) % Plt Count 60 L (150-450) k/uL Lymphocytes # (Manual) 0.74 L (1.0-4.8) k/uL PT (9.0-12.0) sec INR (<1.2) APTT (22.0-30.0) sec D-Dimer (<0.60) mg/L FEU ABG pH (7.35-7.45) ABG HCO3 (21-25) mmol/L Sodium (137-145) mmol/L Potassium (3.5-5.1) mmol/L Carbon Dioxide (22-30) mmol/L BUN 36 H (7-17) mg/dL Creatinine 1.43 H (0.52-1.04) mg/dL Glucose 110 H (74-99) mg/dL POC Glucose (mg/dL) (75-99) mg/dL Calcium 8.3 L (8.4-10.2) mg/dL Total Bilirubin 1.7 H 1.6 H (0.2-1.3) mg/dL C-Reactive Protein (<10.0) mg/L Total Protein 5.9 L (6.3-8.2) g/dL Albumin 2.2 L (3.5-5.0) g/dL 09/03/19 09/03/19 09/03/19 Range/Units 15:38 15:42 17:21 RBC (3.80-5.40) m/uL Hgb (11.4-16.0) gm/dL Hct (34.0-46.0) % MCV (80.0-100.0) fL MCHC (31.0-37.0) g/dL RDW (11.5-15.5) % Plt Count (150-450) k/uL Lymphocytes # (Manual) (1.0-4.8) k/uL PT 12.2 H (9.0-12.0) sec INR 1.2 H (<1.2) APTT 35.2 H (22.0-30.0) sec D-Dimer (<0.60) mg/L FEU ABG pH 7.48 H (7.35-7.45) ABG HCO3 30 H (21-25) mmol/L Sodium (137-145) mmol/L Potassium (3.5-5.1) mmol/L Carbon Dioxide (22-30) mmol/L BUN (7-17) mg/dL Creatinine (0.52-1.04) mg/dL Glucose (74-99) mg/dL POC Glucose (mg/dL) 119 H (75-99) mg/dL Calcium (8.4-10.2) mg/dL Total Bilirubin (0.2-1.3) mg/dL C-Reactive Protein (<10.0) mg/L Total Protein (6.3-8.2) g/dL Albumin (3.5-5.0) g/dL 09/03/19 09/04/19 09/04/19 Range/Units 21:24 05:32 05:32 RBC 2.33 L 2.40 L (3.80-5.40) m/uL Hgb 7.1 L 7.5 L (11.4-16.0) gm/dL Hct 23.2 L 24.1 L (34.0-46.0) % MCV 100.2 H (80.0-100.0) fL MCHC 30.6 L (31.0-37.0) g/dL RDW 19.4 H 19.3 H (11.5-15.5) % Plt Count 56 L 62 L (150-450) k/uL Lymphocytes # (Manual) 0.50 L (1.0-4.8) k/uL PT (9.0-12.0) sec INR (<1.2) APTT (22.0-30.0) sec D-Dimer (<0.60) mg/L FEU ABG pH (7.35-7.45) ABG HCO3 (21-25) mmol/L Sodium (137-145) mmol/L Potassium 3.4 L (3.5-5.1) mmol/L Carbon Dioxide 31 H (22-30) mmol/L BUN 32 H (7-17) mg/dL Creatinine 1.36 H (0.52-1.04) mg/dL Glucose (74-99) mg/dL POC Glucose (mg/dL) (75-99) mg/dL Calcium 7.9 L (8.4-10.2) mg/dL Total Bilirubin (0.2-1.3) mg/dL C-Reactive Protein 70.3 H (<10.0) mg/L Total Protein 5.6 L (6.3-8.2) g/dL Albumin 2.1 L (3.5-5.0) g/dL 09/04/19 Range/Units 05:32 RBC (3.80-5.40) m/uL Hgb (11.4-16.0) gm/dL Hct (34.0-46.0) % MCV (80.0-100.0) fL MCHC (31.0-37.0) g/dL RDW (11.5-15.5) % Plt Count (150-450) k/uL Lymphocytes # (Manual) (1.0-4.8) k/uL PT (9.0-12.0) sec INR (<1.2) APTT (22.0-30.0) sec D-Dimer 7.99 H (<0.60) mg/L FEU ABG pH (7.35-7.45) ABG HCO3 (21-25) mmol/L Sodium (137-145) mmol/L Potassium (3.5-5.1) mmol/L Carbon Dioxide (22-30) mmol/L BUN (7-17) mg/dL Creatinine (0.52-1.04) mg/dL Glucose (74-99) mg/dL POC Glucose (mg/dL) (75-99) mg/dL Calcium (8.4-10.2) mg/dL Total Bilirubin (0.2-1.3) mg/dL C-Reactive Protein (<10.0) mg/L Total Protein (6.3-8.2) g/dL Albumin (3.5-5.0) g/dL H & H 09/01/19 09/02/19 09/02/19 Range/Units 13:30 02:01 11:53 Hgb 6.4 L* D 6.9 L* 8.2 L (11.4-16.0) gm/dL Hct 21.1 L 21.8 L 26.4 L (34.0-46.0) % 09/02/19 09/03/19 09/03/19 Range/Units 20:11 01:00 02:34 Hgb 7.2 L 8.0 L 7.3 L (11.4-16.0) gm/dL Hct 22.9 L 26.3 L 23.8 L (34.0-46.0) % 09/03/19 09/03/19 09/03/19 Range/Units 06:56 14:55 21:24 Hgb 7.1 L 7.7 L 7.1 L (11.4-16.0) gm/dL Hct 22.9 L 24.6 L 23.2 L (34.0-46.0) % 09/04/19 Range/Units 05:32 Hgb 7.5 L (11.4-16.0) gm/dL Hct 24.1 L (34.0-46.0) % Coagulation 09/01/19 09/03/19 Range/Units 13:30 17:21 INR 1.3 H 1.2 H (<1.2) Result Diagrams: 09/04/19 05:32 09/04/19 05:32 Assessment and Plan Assessment: Foreign body, left hallux Superficial ulceration to plantar, distal tip of hallux, left Plan: - The clinical and imaging findings were discussed with the patient. The patient was discussed with Dr. Kirby. There is no surgical intervention planned at this time. The foreign body does not appear to be in relation to the superficial ulceration of the hallux. We recommend conservative treatment at this time for the foreign body. If the foreign body does not bother the patient and there is no overlying wound, removal is not recommended. - We will consult wound care in regards to the ulceration of the left hallux. - Orthopedics will be signing off. Please let us know if there are any questions or concerns. <John Kirby - Last Filed: 09/26/19 12:45> Results - Labs Labs: H & H 09/01/19 09/02/19 09/02/19 Range/Units 13:30 02:01 11:53 Hgb 6.4 L* D 6.9 L* 8.2 L (11.4-16.0) gm/dL Hct 21.1 L 21.8 L 26.4 L (34.0-46.0) % 09/02/19 09/03/19 09/03/19 Range/Units 20:11 01:00 02:34 Hgb 7.2 L 8.0 L 7.3 L (11.4-16.0) gm/dL Hct 22.9 L 26.3 L 23.8 L (34.0-46.0) % 09/03/19 09/03/19 09/03/19 Range/Units 06:56 14:55 21:24 Hgb 7.1 L 7.7 L 7.1 L (11.4-16.0) gm/dL Hct 22.9 L 24.6 L 23.2 L (34.0-46.0) % 09/04/19 09/05/19 09/06/19 Range/Units 05:32 06:03 05:29 Hgb 7.5 L 7.3 L 8.0 L (11.4-16.0) gm/dL Hct 24.1 L 24.5 L 25.6 L (34.0-46.0) % Coagulation 09/01/19 09/03/19 Range/Units 13:30 17:21 INR 1.3 H 1.2 H (<1.2) Result Diagrams: 09/06/19 05:29 09/06/19 05:29 Assessment and Plan Plan: Reviewed and agree with above (amendments/corrections noted below). The patient was subsequently seen and examined by me as well. S: She does not recall a trauma that could have caused the foreign body insertion. Denies pain in this area. O: No tenderness or discrete palpable mass/prominence in the region of the retained foreign body A: Retained foreign body - likely the tip of a sewing needle or safety pin P: No need for surgical exploration or removal. Recommended continued observation and local wound care for the ulcer. The patient does not require further follow up with for this issue. Discussed the clinical findings and plan in detail with the patient. She expressed understanding and agreement. Thank you for allowing us to participate in the care of this patient. John Kirby D.O. [facility]
--- NOTE | 2019-09-04 13:59 | PN ---
PROGRESS NOTE DATE OF SERVICE: 09/04/2019 Patient is a 74-year-old pleasant white female admitted to the hospital with severe symptomatic anemia and a hemoglobin of 6.4 requiring 2 units of blood transfusion. While in the hospital, she developed severe hepatic encephalopathy with elevated ammonia level and transferred to the intensive care unit. She is doing much better today. Her ammonia level is down to normal. She is more awake and alert. She denies any abdominal pain. No nausea, vomiting. She had some maroon-colored stools from the FMS that was placed 2 days ago. Her hemoglobin is stable at 7.5 g/dL. PHYSICAL EXAMINATION: She appears comfortable, in no apparent distress. Vital signs are stable. Blood pressure 122/86, pulse is 74, temperature 98.5. HEENT: Examination unremarkable, conjunctivae are pink, sclerae nonicteric, oral cavity no lesions. NECK: No JVD or lymph node enlargement. CHEST: Clear to auscultation. HEART: Regular rate and rhythm. ABDOMEN: Soft, bowel sounds are positive. No organomegaly. EXTREMITIES: No pedal edema. SKIN: No rashes. NEUROLOGIC: Alert and oriented x3. No focal deficits. LABS: WBC 7.2, hemoglobin 7.5, platelets 62,000. Basic metabolic panel is within normal limits. BUN is 32, creatinine 1.36. LFTs are within normal limits. IMPRESSION: 1. Hepatic encephalopathy, resolved. 2. History of alcoholic cirrhosis of the liver with gradual decompensation. 3. Severe symptomatic anemia with maroon-colored stools, prior history of esophageal varices status post variceal ligation 6 weeks ago. 4. Chronic kidney disease. RECOMMENDATION: 1. Continue with a clear liquid diet. 2. Continue Protonix 40 mg q.12 hours. 3. Monitor CBC closely. 4. Continue with oral lactulose and titrate so that she has 3-4 bowel movements daily. 5. We will proceed with an upper endoscopy tomorrow. I discussed with the patient risk, benefits and complications and she is agreeable to it. Thank you for this consultation. MMODL / RUTHN: [id number] /
[2019-09-04] MEDS ORDERED: POTASSIUM CHLORIDE ER 20 MEQ TAB.ER PO SCH (17:00)
[2019-09-04] MEDS: DONEPEZIL 10 MG TAB PO SCH (22:31)
[2019-09-04] MEDS: FUROSEMIDE 20 MG TAB PO SCH (22:31)
[2019-09-04] MEDS: PRIMIDONE 25 MG TAB PO SCH (23:15)
--- NOTE | 2019-09-05 01:46 | P.PN ---
Subjective Progress Note Date: 09/05/19 Patient was seen for a follow-up. Patient laying comfortably in bed. Offers no complaints. Her myoclonic jerks have much improved. Objective - Vital Signs Vital signs: Vital Signs Temp 99.1 F 09/05/19 00:00 Pulse 71 09/05/19 00:00 Resp 18 09/05/19 00:00 BP 117/57 09/05/19 00:00 Pulse Ox 99 09/05/19 00:00 Intake & Output 09/04/19 09/04/19 09/05/19 06:59 18:59 06:59 Intake Total 360 1798 Output Total 3528 1920 300 Balance -3168 -122 -300 Weight 84.1 kg 84.1 kg Intake: IV 260 70 Normal Saline 260 70 Intake, IV Titration 100 500 Amount Ampicillin-Sulbactam 3 gm 100 200 In Sodium Chloride 0.9% 100 ml @ 200 mls/hr IVPB Q8HR JOSR Rx#:[id number] Magnesium Sulfate-D5w Pmx 200 1 gm In Dextrose/Water 1 100ml.bag @ 100 mls/hr IVPB Q1H JOSR Rx#: [id number] Sodium Ferric Gluconat- 100 Sucrose 125 mg In Sodium Chloride 0.9% 100 ml @ 100 mls/hr IVPB DAILY JOSR Rx#:[id number] Oral 1128 Other 100 Output: Urine 1028 920 300 Stool 2500 1000 Other: Voiding Method Indwelling Catheter Indwelling Catheter Indwelling Catheter - Exam Patient's mentation appears normal. Patient has hoarse voice. Patient is coughing, also congested. Speech and language functions are normal. Cranial nerves normal. Muscle strength appears normal. Her myoclonic jerks have almost resolved. - Labs CBC & Chem 7: 09/04/19 05:32 09/05/19 00:26 Labs: Abnormal Lab Results - Last 24 Hours (Table) 09/04/19 09/04/19 09/04/19 Range/Units 05:32 05:32 05:32 RBC 2.40 L (3.80-5.40) m/uL Hgb 7.5 L (11.4-16.0) gm/dL Hct 24.1 L (34.0-46.0) % MCV 100.2 H (80.0-100.0) fL RDW 19.3 H (11.5-15.5) % Plt Count 62 L (150-450) k/uL Lymphocytes # (Manual) 0.50 L (1.0-4.8) k/uL D-Dimer 7.99 H (<0.60) mg/L FEU Potassium 3.4 L (3.5-5.1) mmol/L Carbon Dioxide 31 H (22-30) mmol/L BUN 32 H (7-17) mg/dL Creatinine 1.36 H (0.52-1.04) mg/dL Calcium 7.9 L (8.4-10.2) mg/dL Ferritin 651.6 H (10.0-291.0) ng/mL C-Reactive Protein 70.3 H (<10.0) mg/L Total Protein 5.6 L (6.3-8.2) g/dL Albumin 2.1 L (3.5-5.0) g/dL Microbiology - Last 24 Hours (Table) 09/03/19 01:00 Blood Culture - Preliminary Blood No Growth after 24 hours 09/03/19 01:00 Blood Culture - Preliminary Blood No Growth after 24 hours Assessment and Plan Assessment: * 74-year-old female admitted with subjective weakness of lower extremities. Patient does have history of peripheral neuropathy related to chemotherapy that she received for uterine cancer 7 years ago. Patient's recent workup revealed evidence of possible B12 deficiency, as her methylmalonic acid was significantly elevated 0.64, with a normal vitamin B12 level of 876. * Significant myoclonic jerks due to anemia, COPD, mild renal insufficiency and metabolic dysfunction, and adverse effect of gabapentin. Much improved now. * Severe anemia with positive occult blood in stool. * History of hepatic cirrhosis and esophageal varices status post banding treatment in the past. * Tobacco use. Plan: * Patient's myoclonic jerks have almost resolved since cutting back on Neurontin. Continue gabapentin 300 mg twice a day. * Continue B12 injections daily. Patient continues to be anemic with hemoglobin 7.5. * Patient may need EMG and nerve conductions of bilateral lower extremities as an outpatient, if continues to complain of leg weakness. * CT abdomen and pelvis report reviewed. Has multiple medical issues. Your medical management. * Neurology will sign off. Please call neurology if any further concerns.
[2019-09-05] MEDS: LEVOTHYROXINE 25 MCG TAB PO SCH (06:18)
[2019-09-05 06:33] LABS: Anisocytosis Slight; HCT 24.5 % (34.0-46.0); HGB 7.3 gm/dL (11.4-16.0); Hypochromasia Marked; MCH 30.2 pg (25.0-35.0); MCHC 29.9 g/dL (31.0-37.0); MCV 100.9 fL (80.0-100.0); Macrocytosis Moderate; Mean Platelet Volume 11.9; RBC 2.43 m/uL (3.80-5.40); RDW 19.3 % (11.5-15.5); WBC 7.4 k/uL (3.8-10.6)
[2019-09-05 06:45] LABS: Calcium 7.6 mg/dL (8.4-10.2); Magnesium 1.7 mg/dL (1.6-2.3); Potassium 3.7 mmol/L (3.5-5.1); Total Bilirubin 1.1 mg/dL (0.2-1.3); Total Protein 5.6 g/dL (6.3-8.2)
[2019-09-05] MEDS ORDERED: LACTATED RINGERS 1,000 ML IV ONE (07:26)
[2019-09-05] MEDS ORDERED: PROPOFOL 10 MG/ML 20 ML VIAL IV ONE (07:29)
[2019-09-05] MEDS ORDERED: LIDOCAINE 1% INJ 10MG/ML (20 ML MDV) ONE (07:29)
[2019-09-05] MEDS ORDERED: ePHEDrine SULFATE/0.9% NACL/PF 50 MG/5 ML SYRINGE IV ONE (07:29)
[2019-09-05] MEDS: SYMBICORT 160-4.5 MCG INHALER INHALATION SCH ×2 (07:45→19:53)
--- NOTE | 2019-09-05 07:47 | P.PCN ---
Date of Procedure: 09/05/19 Procedure(s) Performed: BRIEF HISTORY: Patient is a 74-year-old, pleasant, white female with history of alcohol cirrhosis of the liver and recurrent anemia and GI bleed admitted hospital with hepatic encephalopathy. While in the hospital she had severe anemia with a hemoglobin of 6.4 requiring 2 units of blood transfusion. She had some darker stools and maroon-colored stools while in the intensive care unit.. She had prior history of esophageal variceal bleeding and last upper endoscopy was in July 2019 with esophageal variceal ligation. She is hence scheduled for repeat upper endoscopy today. PROCEDURE PERFORMED: Esophagogastroduodenoscopy. PREOPERATIVE DIAGNOSIS: Severe anemia/prior history of esophageal variceal bleeding. IV sedation per anesthesia. PROCEDURE: After informed consent was obtained, the patient was brought into the endoscopy unit. IV sedation was administered by Anesthesia under continuous monitoring. Initially the Olympus GIF-140 video endoscope was inserted into the mouth. Esophagus intubated without any difficulty. It was gradually advanced into the stomach and duodenum and carefully examined. The bulb and the second part of the duodenum appeared normal. The scope at this time was withdrawn to the stomach, adequately insufflated with air, and upon careful examination, mucosa of the antrum, body, cardia and the fundus appeared normal. The scope was then withdrawn into the esophagus. The GE junction was located at 39 cm from the incisors. The esophagus appeared normal. There were no erosions or ulcerations seen and the patient tolerated the procedure well. IMPRESSION: 1. Very small distal esophageal varices. 2. Small hiatal hernia 3. Mild portal hypertensive gastropathy. RECOMMENDATIONS: The findings of this examination were discussed with the patient. At this time will monitor CBC on a daily basis. Advance diet as tolerated..
[2019-09-05 08:28] LABS: Lymphocytes # (M) 0.44 k/uL (1.0-4.8); Monocytes # (M) 0.74 k/uL (0-1.0); Neutrophils # (M) 6.22 k/uL (1.3-7.7); Neutrophils % (M) 84 %; Nucleated Red Blood Cells 0 /100 WBC (0-0); Total Cells Counted 100
[2019-09-05 08:32] LABS: Platelet Count 68 k/uL (150-450)
--- NOTE | 2019-09-05 08:44 | DS ---
DISCHARGE SUMMARY ADDENDUM: Please add: 1. Chronic kidney disease stage IIIB. MMODL / IJN: [id number] /
[2019-09-05] MEDS: PANTOPRAZOLE 40 MG/10 ML VIAL IVP SCH ×2 (09:14→21:09)
[2019-09-05] MEDS: AMPICILLIN-SULBACTAM 3 GM in SODIUM CHLORIDE 0.9% 100 ML IVPB SCH ×4 (09:15→16:03)
[2019-09-05] MEDS: NICOTINE 14MG/24HR PATCH TRANSDERM SCH (09:23)
[2019-09-05] MEDS: GABAPENTIN 300 MG CAP PO SCH ×2 (09:23→21:08)
[2019-09-05] MEDS: LORATADINE 10 MG TAB PO SCH (09:23)
[2019-09-05] MEDS: PROPRANOLOL 10 MG TAB PO SCH ×3 (09:23→21:10)
[2019-09-05] MEDS: LACTULOSE 20 GM/30 ML CUP PO SCH ×2 (09:23→21:09)
[2019-09-05] MEDS: POTASSIUM CHLORIDE ER 20 MEQ TAB.ER PO SCH (09:23)
[2019-09-05] MEDS: NYSTATIN 100,000 UNIT/ML SUSP 500,000 UNIT/5 ML CUP PO SCH ×4 (09:23→21:10)
[2019-09-05] MEDS: FUROSEMIDE 40 MG TAB PO SCH (09:24)
[2019-09-05] MEDS: MEMANTINE 10 MG TAB PO SCH ×2 (09:24→21:08)
[2019-09-05] MEDS: ESCITALOPRAM 10 MG TAB PO SCH (09:24)
[2019-09-05] MEDS: CYANOCOBALAMIN 1,000 MCG/ML 1 ML VIAL IM SCH (09:33)
[2019-09-05] MEDS: IPRATROPIUM-ALBUTEROL 3 ML NEB INHALATION PRN ×2 (11:05→19:52)
[2019-09-05] MEDS: SODIUM FERRIC GLUCONAT-SUCROSE 125 MG in SODIUM CHLORIDE 0.9% 100 ML IVPB SCH (12:34)
--- NOTE | 2019-09-05 12:47 | PN ---
PROGRESS NOTE White female who is more alert now that we have her on lactulose. Ammonia levels dropped back down. She is out of the ICU on the medical floor at this point. She is talking, given appropriate answers. Hemoglobin 7.3, stable today. She is getting an EGD today and we will keep her on lactulose and possibly send her home in the next couple days if she continues to improve. CT scan of the abdomen, chest, pelvis shows just anasarca type changes from liver failure. She needs to stay on lactulose to keep her ammonia level down and her metabolic encephalopathy improved. EGD to stop any gastric bleeding. Continue with B12 shots as an outpatient for B12 deficiency. Await further recommendations for neuro and GI. MMODL / IJN: [id number] /
--- NOTE | 2019-09-05 13:54 | P.PN ---
Subjective Progress Note Date: 09/05/19 Principal diagnosis: GI bleed, anemia In follow-up today patient is significantly improved. She is alert and oriented, we will have a discussion regarding her admission. The tremors are gone, she is denying any unusual pain, bleeding, difficulty in breathing. Objective - Vital Signs Vital signs: Vital Signs Temp 97.7 F 09/05/19 11:39 Pulse 64 09/05/19 11:39 Resp 16 09/05/19 11:39 BP 132/63 09/05/19 11:39 Pulse Ox 96 09/05/19 11:39 Intake & Output 09/04/19 09/05/19 09/05/19 18:59 06:59 18:59 Intake Total 1798 300 Output Total 1920 300 700 Balance -122 -300 -400 Weight 84.1 kg 73 kg Intake: IV 70 200 Normal Saline 70 Intake, IV Titration 500 100 Amount Ampicillin-Sulbactam 3 gm 200 100 In Sodium Chloride 0.9% 100 ml @ 200 mls/hr IVPB Q8HR [facility] Rx#:[id number] Magnesium Sulfate-D5w Pmx 200 1 gm In Dextrose/Water 1 100ml.bag @ 100 mls/hr IVPB Q1H [facility] Rx#: [id number] Sodium Ferric Gluconat- 100 Sucrose 125 mg In Sodium Chloride 0.9% 100 ml @ 100 mls/hr IVPB DAILY [facility] Rx#:[id number] Oral 1128 Other 100 Output: Urine 920 300 400 Stool 1000 300 Other: Voiding Method Indwelling Catheter Indwelling Catheter Indwelling Catheter - Constitutional General appearance: Present: average body habitus, cooperative, no acute distress - EENT Eyes: Present: anicteric sclerae ENT: Present: hearing grossly normal - Respiratory Details: Respirations even and unlabored - Cardiovascular Details: Skin warm and dry - Musculoskeletal Musculoskeletal: Present: generalized weakness, strength equal bilaterally - Psychiatric Psychiatric: Present: A&O x's 3, appropriate affect, intact judgment & insight - Labs CBC & Chem 7: 09/05/19 06:03 09/05/19 06:03 Labs: Abnormal Lab Results - Last 24 Hours (Table) 09/05/19 09/05/19 Range/Units 06:03 06:03 RBC 2.43 L (3.80-5.40) m/uL Hgb 7.3 L (11.4-16.0) gm/dL Hct 24.5 L (34.0-46.0) % MCV 100.9 H (80.0-100.0) fL MCHC 29.9 L (31.0-37.0) g/dL RDW 19.3 H (11.5-15.5) % Plt Count 68 L (150-450) k/uL Lymphocytes # (Manual) 0.44 L (1.0-4.8) k/uL BUN 27 H (7-17) mg/dL Creatinine 1.31 H (0.52-1.04) mg/dL Glucose 104 H (74-99) mg/dL Calcium 7.6 L (8.4-10.2) mg/dL Total Protein 5.6 L (6.3-8.2) g/dL Albumin 2.0 L (3.5-5.0) g/dL Microbiology - Last 24 Hours (Table) 09/03/19 01:00 Blood Culture - Preliminary Blood No Growth after 24 hours 09/03/19 01:00 Blood Culture - Preliminary Blood No Growth after 24 hours - Imaging and Cardiology CT scan - abdomen: report reviewed CT scan - chest: report reviewed CT scan - pelvis: report reviewed Assessment and Plan (1) GI bleed Narrative/Plan: Secondary to liver cirrhosis. Patient has a history of confirmed AVMs and esophageal varices. Status post EGD, some mild varices and gastritis. Hemoglobin is stable at this time. Current Visit: Yes Status: Acute Priority: High Code(s): K92.2 - GASTROINTESTINAL HEMORRHAGE, UNSPECIFIED SNOMED Code(s): 72974408 (2) Esophageal varices determined by endoscopy Current Visit: No Status: Chronic Priority: Medium Code(s): I85.00 - ESOPHAGEAL VARICES WITHOUT BLEEDING SNOMED Code(s): 53106055 Plan: Acute on chronic gastrointestinal bleeding. Patient has history of known AV malformations as well as esophageal varices. Iron studies reviewed. Patient's baseline ferritin is likely elevated secondary to liver disease. Parenteral iron has been ordered for low iron and saturation. Patient is supposed to be on anemia supportive medications including iron, B12 for functional deficit and I also believe she received E Coy the past for chronic kidney disease, I will have to confirm that. No transfusion is needed today. Transfuse to keep hemoglobin 7 or higher or if symptomatic. Follow-up appointment in the chart CT CAP reviewed, no evidence of recurrent/metastatic uterine carcinosarcoma after 5 years. Discussed the same with the patient.
[2019-09-05] MEDS: DONEPEZIL 10 MG TAB PO SCH (21:08)
[2019-09-05] MEDS: PRIMIDONE 25 MG TAB PO SCH (21:08)
[2019-09-05] MEDS: FUROSEMIDE 20 MG TAB PO SCH (21:09)
[2019-09-06] MEDS: AMPICILLIN-SULBACTAM 3 GM in SODIUM CHLORIDE 0.9% 100 ML IVPB SCH ×3 (01:00→16:00)
[2019-09-06] MEDS: LEVOTHYROXINE 25 MCG TAB PO SCH (06:05)
[2019-09-06 06:30] LABS: Anisocytosis Slight; HCT 25.6 % (34.0-46.0); Hypochromasia Marked; MCH 31.8 pg (25.0-35.0); MCHC 31.1 g/dL (31.0-37.0); MCV 102.2 fL (80.0-100.0); Macrocytosis Moderate; Mean Platelet Volume 12.4; Platelet Count 68 k/uL (150-450); RDW 19.2 % (11.5-15.5); WBC 8.4 k/uL (3.8-10.6)
[2019-09-06 06:38] LABS: Albumin 2.2 g/dL (3.5-5.0); Calcium 7.8 mg/dL (8.4-10.2); Magnesium 1.5 mg/dL (1.6-2.3); Potassium 3.7 mmol/L (3.5-5.1); Total Bilirubin 0.9 mg/dL (0.2-1.3); Total Protein 6.1 g/dL (6.3-8.2)
[2019-09-06 07:07] LABS: Band Neutrophils % 1 %; Eosinophils # (M) 0.34 k/uL (0-0.7); Large Platelets Present; Lymphocytes # (M) 1.18 k/uL (1.0-4.8); Monocytes # (M) 0.34 k/uL (0-1.0); Neutrophils % (M) 77 %; Nucleated Red Blood Cells 0 /100 WBC (0-0); Total Cells Counted 100
[2019-09-06] MEDS: SYMBICORT 160-4.5 MCG INHALER INHALATION SCH ×2 (07:25→20:39)
[2019-09-06] MEDS: IPRATROPIUM-ALBUTEROL 3 ML NEB INHALATION PRN ×3 (07:25→20:39)
[2019-09-06] MEDS: LACTULOSE 20 GM/30 ML CUP PO SCH ×2 (08:51→20:36)
[2019-09-06] MEDS: GABAPENTIN 300 MG CAP PO SCH ×2 (08:51→20:33)
[2019-09-06] MEDS: FUROSEMIDE 40 MG TAB PO SCH (08:51)
[2019-09-06] MEDS: POTASSIUM CHLORIDE ER 20 MEQ TAB.ER PO SCH (08:51)
[2019-09-06] MEDS: MEMANTINE 10 MG TAB PO SCH ×2 (08:51→20:34)
[2019-09-06] MEDS: ESCITALOPRAM 10 MG TAB PO SCH (08:52)
[2019-09-06] MEDS: PANTOPRAZOLE 40 MG/10 ML VIAL IVP SCH ×2 (08:52→20:35)
[2019-09-06] MEDS: LORATADINE 10 MG TAB PO SCH (08:52)
[2019-09-06] MEDS: NICOTINE 14MG/24HR PATCH TRANSDERM SCH (08:52)
[2019-09-06] MEDS: PROPRANOLOL 10 MG TAB PO SCH ×3 (08:53→20:33)
[2019-09-06] MEDS: NYSTATIN 100,000 UNIT/ML SUSP 500,000 UNIT/5 ML CUP PO SCH ×4 (08:53→22:36)
[2019-09-06] MEDS ORDERED: SODIUM FERRIC GLUCONAT-SUCROSE 125 MG in SODIUM CHLORIDE 0.9% 100 ML IVPB ONE (13:00)
--- NOTE | 2019-09-06 14:48 | PN ---
PROGRESS NOTE DATE OF SERVICE: 09/06/2019 The patient is a 71-year-old pleasant white female with history of alcoholic cirrhosis of the liver, admitted to the hospital with altered mental status and hepatic encephalopathy. While in the hospital, she developed some GI bleed. She underwent an upper endoscopy by me yesterday that showed mild portal hypertensive gastropathy and small esophageal varices with no active bleeding. Today she is feeling better. She just had her breakfast. Not complaining of any symptoms. Has an FMS in place which has a small amount of liquid stool noted. No melena. PHYSICAL EXAMINATION: She appears comfortable, no apparent distress. Vital signs are stable. Blood pressure is 144/65, pulse is 75 per minute. HEENT examination unremarkable. Conjunctivae pink. Sclerae anicteric. Oral cavity no lesions. NECK: No JVD or lymph node enlargement. CHEST: Clear to auscultation. HEART: Regular rate and rhythm. ABDOMEN: Soft. Bowel sounds are positive. No organomegaly. EXTREMITIES: No pedal edema. SKIN: No rashes. NEURO: Alert and oriented. LABS: Done from today WBC 8.4, hemoglobin 8, platelets 68,000. IMPRESSION: 1. Cirrhosis of the liver with gradual decompensation. 2. Acute upper gastrointestinal bleed, status post EGD yesterday that showed small esophageal varices and mild portal hypertensive gastropathy but no active bleeding. Hemoglobin stable at 8.4 g/dL. 3. Hepatic encephalopathy, remains on oral lactulose and doing well. RECOMMENDATIONS: 1. Continue to monitor CBC closely. 2. Continue lactulose and titrate so that she has only 2-3 bowel movements daily. 3. FMS can be removed. 4. Repeat labs in the morning. 5. We will follow with you closely. Thank you for this consultation. MMODL / IJN: [id number] /
[2019-09-06] MEDS: DONEPEZIL 10 MG TAB PO SCH (20:33)
[2019-09-06] MEDS: FUROSEMIDE 20 MG TAB PO SCH (20:33)
[2019-09-06] MEDS ORDERED: MAGNESIUM SULFATE-D5W PMX 1 GM in DEXTROSE/WATER 1 100ML.BAG IVPB ONE (21:38)
[2019-09-06] MEDS: PRIMIDONE 25 MG TAB PO SCH (22:35)
--- NOTE | 2019-09-06 23:40 | P.PN ---
Subjective Progress Note Date: 09/04/19 Generalized weakness persists. No fevers or chills. No obvious bleeding. She continues to have mild tremors and shakiness. Objective - Vital Signs Vital signs: Vital Signs Temp 98.6 F 09/04/19 16:00 Pulse 72 09/04/19 17:00 Resp 8 L 09/04/19 17:00 BP 122/40 09/04/19 17:00 Pulse Ox 96 09/04/19 17:00 Intake & Output 09/03/19 09/04/19 09/04/19 18:59 06:59 18:59 Intake Total 004 905 7587 Output Total 335 3528 1920 Balance 631 -0845 -122 Weight 84.1 kg 84.1 kg Intake: IV 30 260 70 Normal Saline 30 260 70 Intake, IV Titration 300 100 500 Amount Ampicillin-Sulbactam 3 gm 200 100 200 In Sodium Chloride 0.9% 100 ml @ 200 mls/hr IVPB Q8HR [facility] Rx#:[id number] Magnesium Sulfate-D5w Pmx 200 1 gm In Dextrose/Water 1 100ml.bag @ 100 mls/hr IVPB Q1H [facility] Rx#: [id number] Sodium Ferric Gluconat- 100 100 Sucrose 125 mg In Sodium Chloride 0.9% 100 ml @ 100 mls/hr IVPB DAILY [facility] Rx#:[id number] Oral 480 1128 Other 100 Output: Urine 335 1028 920 Stool 2500 1000 Other: Voiding Method Indwelling Catheter Indwelling Catheter Indwelling Catheter # Voids 4 # Bowel Movements 1 - Constitutional Constitutional Comment(s): Generalized weakness - EENT Eyes: Present: scleral icterus ENT: Present: hearing grossly normal, normal oropharynx - Respiratory Respiratory: bilateral: diminished - Cardiovascular Rhythm: regular Heart sounds: normal: S1, S2 - Gastrointestinal General gastrointestinal: Present: normal bowel sounds, soft - Integumentary Integumentary: Present: jaundiced - Neurologic Neurologic: Present: CNII-XII intact - Musculoskeletal Musculoskeletal: Present: generalized weakness, strength equal bilaterally - Psychiatric Psychiatric Comment(s): Comprehension is mildly slow but adequate. Affect is also mildly slow Psychiatric: Present: A&O x's 3 - Labs CBC & Chem 7: 09/06/19 05:29 09/06/19 05:29 Labs: Abnormal Lab Results - Last 24 Hours (Table) 09/03/19 09/03/19 09/03/19 Range/Units 14:55 17:21 21:24 RBC 2.49 L 2.33 L (3.80-5.40) m/uL Hgb 7.7 L 7.1 L (11.4-16.0) gm/dL Hct 24.6 L 23.2 L (34.0-46.0) % MCV (80.0-100.0) fL MCHC 30.6 L (31.0-37.0) g/dL RDW 19.4 H 19.4 H (11.5-15.5) % Plt Count 60 L 56 L (150-450) k/uL Lymphocytes # (Manual) 0.74 L (1.0-4.8) k/uL PT 12.2 H (9.0-12.0) sec INR 1.2 H (<1.2) APTT 35.2 H (22.0-30.0) sec D-Dimer (<0.60) mg/L FEU Potassium (3.5-5.1) mmol/L Carbon Dioxide (22-30) mmol/L BUN (7-17) mg/dL Creatinine (0.52-1.04) mg/dL Calcium (8.4-10.2) mg/dL Ferritin (10.0-291.0) ng/mL C-Reactive Protein (<10.0) mg/L Total Protein (6.3-8.2) g/dL Albumin (3.5-5.0) g/dL 09/04/19 09/04/19 09/04/19 Range/Units 05:32 05:32 05:32 RBC 2.40 L (3.80-5.40) m/uL Hgb 7.5 L (11.4-16.0) gm/dL Hct 24.1 L (34.0-46.0) % MCV 100.2 H (80.0-100.0) fL MCHC (31.0-37.0) g/dL RDW 19.3 H (11.5-15.5) % Plt Count 62 L (150-450) k/uL Lymphocytes # (Manual) 0.50 L (1.0-4.8) k/uL PT (9.0-12.0) sec INR (<1.2) APTT (22.0-30.0) sec D-Dimer 7.99 H (<0.60) mg/L FEU Potassium 3.4 L (3.5-5.1) mmol/L Carbon Dioxide 31 H (22-30) mmol/L BUN 32 H (7-17) mg/dL Creatinine 1.36 H (0.52-1.04) mg/dL Calcium 7.9 L (8.4-10.2) mg/dL Ferritin 651.6 H (10.0-291.0) ng/mL C-Reactive Protein 70.3 H (<10.0) mg/L Total Protein 5.6 L (6.3-8.2) g/dL Albumin 2.1 L (3.5-5.0) g/dL Microbiology - Last 24 Hours (Table) 09/03/19 01:00 Blood Culture - Preliminary Blood No Growth after 24 hours 09/03/19 01:00 Blood Culture - Preliminary Blood No Growth after 24 hours Assessment and Plan (1) GI bleed Narrative/Plan: Known h/o AVMs and varices related to her cirrhosis and portal HTN. Hgb currently stable. Pt has received IV iron, and has no evidence of active bleeding. Endoscopy has been scheduled - Continue to monitor and transfuse for hgb < 7 Current Visit: Yes Status: Acute Priority: High Code(s): K92.2 - GASTROINTESTINAL HEMORRHAGE, UNSPECIFIED SNOMED Code(s): 34182366 (2) History of uterine cancer Narrative/Plan: Ct scans reviewed and d/w pt. No definite evidence of recurrence noted. There are borderline mediastinal nodes noted , maximum 1.6 cm, which are non specific. Repeat Ct scans in 6 mths. If no change , routine surveillance can be stopped as the pt is now > 5 yrs since completion of treatment Current Visit: Yes Status: Acute Code(s): Z85.42 - PERSONAL HISTORY OF MALIGNANT NEOPLASM OF OTH PRT UTERUS SNOMED Code(s): 062935109 (3) Delirium due to general medical condition Narrative/Plan: This is improved. There is likely a component at least of hepatic encephalopathy. Pt is continuing on Lactulose Current Visit: No Status: Acute Code(s): F05 - DELIRIUM DUE TO KNOWN PHYSI OLOGICAL CONDITION SNOMED Code(s): 6971827 Plan: Defer to the admitting service and other consultants for management of her multiple other medical problems
[2019-09-07] MEDS: AMPICILLIN-SULBACTAM 3 GM in SODIUM CHLORIDE 0.9% 100 ML IVPB SCH ×3 (00:24→15:40)
--- NOTE | 2019-09-07 05:08 | PN ---
PROGRESS NOTE A 74-year-old white female with GI hemorrhaging. EGD showed no significant bleeding, minimal esophageal varices. Lactulose has improved her mental status with lower ammonia levels. Fecal retention stool . Urine An catheter removed. CARDIOVASCULAR: S1, S2. LUNGS: Clear. GI: Increased bowel sounds. HEMATOLOGY: Negative Homans. PSYCH: Fair mood and affect. Alert and oriented x3. ASSESSMENT: 1. Gastrointestinal hemorrhage. 2. Liver failure. 3. Hepatic encephalopathy. All improved. Continue on lactulose 25 t.i.d. PT, OT. Possible discharge home tomorrow versus go to the half-way depending on family and patient's discussion together. MMODL / IJN: [id number] /
[2019-09-07] MEDS: LEVOTHYROXINE 25 MCG TAB PO SCH (06:13)
[2019-09-07] MEDS: IPRATROPIUM-ALBUTEROL 3 ML NEB INHALATION PRN ×3 (08:03→15:35)
[2019-09-07] MEDS: SYMBICORT 160-4.5 MCG INHALER INHALATION SCH (08:03)
[2019-09-07] MEDS: POTASSIUM CHLORIDE ER 20 MEQ TAB.ER PO SCH (09:19)
[2019-09-07] MEDS: FUROSEMIDE 40 MG TAB PO SCH (09:19)
[2019-09-07] MEDS: LORATADINE 10 MG TAB PO SCH (09:19)
[2019-09-07] MEDS: LACTULOSE 20 GM/30 ML CUP PO SCH (09:19)
[2019-09-07] MEDS: ESCITALOPRAM 10 MG TAB PO SCH (09:19)
[2019-09-07] MEDS: PANTOPRAZOLE 40 MG/10 ML VIAL IVP SCH (09:19)
[2019-09-07] MEDS: MEMANTINE 10 MG TAB PO SCH (09:19)
[2019-09-07] MEDS: GABAPENTIN 300 MG CAP PO SCH (09:19)
[2019-09-07] MEDS: NYSTATIN 100,000 UNIT/ML SUSP 500,000 UNIT/5 ML CUP PO SCH ×3 (09:19→17:54)
[2019-09-07] MEDS: NICOTINE 14MG/24HR PATCH TRANSDERM SCH (09:19)
[2019-09-07] MEDS: PROPRANOLOL 10 MG TAB PO SCH ×2 (09:20→15:40)
[2019-09-07 10:50] VITALS: BMI 26.2
[2019-09-07 11:25] VITALS: RESP 16
--- NOTE | 2019-09-07 12:03 | P.CONS ---
History of Present Illness - Reason for Consult Consult date: 09/07/19 Wound care - History of Present Illness This is a 74-year-old patient with a ulceration to the left great toe. Patient states that about a month ago she stubbed her toe on cement causing injury and an ulceration. Patient states that the area will re-open at a time and then closed back up. X-ray shows a foreign body within the left great toe. Orthopedics discussed with patient that surgery was not an option at this time. Patient continues to have discomfort to the left great toe only with palpation. Patient's past medical history significant for atrial fibrillation, uterine cancer, TIA, COPD, acid reflux, GI bleed, hyperlipidemia, hypertension, osteoarthritis, neuropathy to legs and feet. Review of Systems Review Of Systems: Constitutional: No fever, no chills, no night sweats. No weight change. No weakness, fatigue or lethargy. No daytime sleepiness. Integumentary:reports wounds, no lesions. No rash or pruritus. No unusual bruising. No change in hair or nails. Past Medical History Past Medical History: Atrial Fibrillation, Cancer, Heart Failure, COPD, CVA/TIA, GERD/Reflux, GI Bleed, Hyperlipidemia, Hypertension, Osteoarthritis (OA) Additional Past Medical History / Comment(s): hx. uterine cancer, chemo 6 years ago, TIA several yrs. ago-forgetful, neuropathy feet & legs & hands, ANEMIA History of Any Multi-Drug Resistant Organisms: None Reported Past Surgical History: Hysterectomy, Tonsillectomy Additional Past Surgical History / Comment(s): COLONOSCOPY. EGD. BILAT CATARACTS REMOVED Past Anesthesia/Blood Transfusion Reactions: No Reported Reaction Past Psychological History: Anxiety, Depression Smoking Status: Current every day smoker (61 years) Past Alcohol Use History: None Reported Past Drug Use History: None Reported - Past Family History Mother Family Medical History: Cancer Father History Unknown: Yes Family Medical History: Cancer Brother(s) Family Medical History: Cancer Medications and Allergies Home Medications Medication Instructions Recorded Confirmed Type Ferrous Sulfate [Feosol] 325 mg PO BID 10/29/16 09/02/19 History Donepezil [Aricept] 10 mg PO HS 11/07/17 09/02/19 History Levothyroxine Sodium [Synthroid] 25 mcg PO DAILY 11/07/17 09/02/19 History Omeprazole [PriLOSEC] 40 mg PO DAILY 11/07/17 09/02/19 History Cetirizine HCl [Zyrtec] 10 mg PO DAILY 01/14/19 09/02/19 History Escitalopram [Lexapro] 10 mg PO DAILY 01/14/19 09/02/19 History Gabapentin [Neurontin] 800 mg PO TID 01/14/19 09/02/19 History Memantine [Namenda] 10 mg PO BID 01/14/19 09/02/19 History Acetaminophen Tab [Tylenol] 650 mg PO Q6H PRN 05/01/19 09/02/19 History Ipratropium-Albuterol Nebulize 3 ml INHALATION RT-QID PRN 05/01/19 09/02/19 History [Duoneb 0.5 mg-3 mg/3 ml Soln] Baclofen 5 mg PO TID 06/28/19 09/02/19 History Promethazine 6.25MG/5Ml [Phenergan 6.25 mg PO HS PRN 06/28/19 09/02/19 History Syrup] SILVER sulfADIAZINE Cream 1 applic TOPICAL BID 06/28/19 09/02/19 History [Silvadene 1% Cream] rOPINIRole HCL [Requip] 0.25 mg PO HS 06/28/19 09/02/19 History Propranolol [Inderal] 10 mg PO TID #90 tab 06/30/19 09/02/19 Rx traMADol HCl [Ultram] 50 mg PO BID PRN 07/21/19 09/02/19 History Loperamide [Imodium] 2 mg PO QAM PRN 08/10/19 09/02/19 History Budesonide-Formot 160-4.5 Mcg 2 puff INHALATION RT-BID #1 inh 08/13/19 09/02/19 Rx [Symbicort 160-4.5 Mcg Inhaler] Furosemide [Lasix] 40 mg PO DAILY #90 tab 08/13/19 09/02/19 Rx Lisinopril [Zestril] 20 mg PO DAILY #90 tab 08/13/19 09/02/19 Rx Nicotine 14Mg/24Hr Patch [Habitrol] 1 patch TRANSDERM DAILY #30 patch 08/13/19 09/02/19 Rx Potassium Chloride ER [K-Dur 20] 20 meq PO DAILY #30 tab 08/13/19 09/02/19 Rx Furosemide [Lasix] 20 mg PO HS 08/16/19 09/02/19 History predniSONE See Taper PO DAILY 08/16/19 09/02/19 History Azithromycin [Zithromax] 500 mg PO DAILY #5 tab 08/18/19 09/02/19 Rx Cefuroxime Axetil [Ceftin] 500 mg PO BID 5 Days #10 tab 08/18/19 09/02/19 Rx Allergies Allergy/AdvReac Type Severity Reaction Status Date / Time No Known Allergies Allergy Verified 09/01/19 17:13 Physical Exam Vitals: Vital Signs Temp Pulse Pulse Resp BP Pulse Ox 09/07/19 11:53 72 09/07/19 11:42 76 09/07/19 11:20 98.2 F 72 16 122/53 92 L 09/07/19 08:16 68 09/07/19 08:04 68 09/07/19 08:00 98.4 F 69 18 134/64 97 09/07/19 04:00 78 18 123/58 90 L 09/06/19 23:12 98.0 F 70 18 129/62 98 09/06/19 20:55 74 09/06/19 20:46 96 09/06/19 20:40 70 09/06/19 19:58 98.3 F 78 17 150/65 90 L 09/06/19 16:00 16 09/06/19 15:45 99.2 F 79 16 136/63 98 09/06/19 13:27 78 88 L 09/06/19 12:00 97.7 F 78 20 149/65 96 Intake and Output 09/06/19 09/07/19 09/07/19 22:59 06:59 14:59 Intake Total 577 100 580 Output Total 201 Balance 577 -101 580 Intake: IV 100 160 Ampicillin-Sulbactam 3 gm 100 100 In Sodium Chloride 0.9% 100 ml @ 200 mls/hr IVPB Q8HR [facility] Rx#:[id number] Normal Saline 60 Intake, IV Titration 100 Amount Magnesium Sulfate-D5w Pmx 100 1 gm In Dextrose/Water 1 100ml.bag @ 100 mls/hr IVPB ONCE ONE Rx#: [id number] Oral 477 420 Output: Stool 200 Urine/Stool Mix 1 Other: Voiding Method Bedside Commode Bedside Commode Bedside Commode # Voids 1 1 1 # Bowel Movements 2 1 Weight 71.5 kg 71.5 kg Physical exam: General Appearance: Alert, cooperative, no distress, appears stated age. Skin: Left great toe plantar aspect has a healed ulceration that is scabbed. No open areas noted. Tenderness with palpation. No drainage. all other Skin color, texture, tugor normal, no rashes or lesions. Neurologic: Alert oriented x3 Results CBC & Chem 7: 09/06/19 05:29 09/06/19 05:29 Labs: Microbiology - Last 24 Hours (Table) 09/06/19 16:00 Stool Culture - Preliminary Stool 09/03/19 01:00 Blood Culture - Preliminary Blood No Growth after 72 hours 09/03/19 01:00 Blood Culture - Preliminary Blood No Growth after 72 hours Assessment and Plan (1) Abrasion foot/toe Current Visit: Yes Status: Acute Code(s): S90.819A - ABRASION, UNSPECIFIED FOOT, INITIAL ENCOUNTER SNOMED Code(s): 558575206 Plan: Ulceration is healed. May apply Silvadene, dry gauze rolled gauze and paper tape as needed. If the area opened up patient can continue with the Silvadene and or re-consult wound care for further recommendations. Thank you kindly for the consultation any questions please contact the wound care center DNP note has been reviewed and discussed with Dr. Patterson and the impression and plan of care has been directed as dictated.
--- NOTE | 2019-09-07 14:31 | PN ---
PROGRESS NOTE DATE OF SERVICE: 09/07/2019 Patient is a 74-year-old pleasant white female admitted to the hospital with alcoholic cirrhosis of the liver, admitted to the hospital with hepatic encephalopathy and GI bleed. She had an upper endoscopy done 2 days ago that showed small esophageal varices and portal hypertensive gastropathy. She is doing well. She has no further episodes of bleeding. PHYSICAL EXAMINATION: Appears comfortable, in no apparent distress. Vital signs are stable, blood pressure is 132/86, pulse is 72 and temperature 98.2. HEENT: Examination unremarkable, conjunctivae are pink, sclerae nonicteric, oral cavity no lesions. NECK: No JVD or lymph node enlargement. CHEST: Clear to auscultation. HEART: Regular rate and rhythm. ABDOMEN: Soft, bowel sounds are positive. No organomegaly. EXTREMITIES: No pedal edema. SKIN: No rashes. NEURO: Awake, slightly weak, oriented to name and place. LABS: Done from today WBC is 8.4, hemoglobin 8, platelets 8000, the rest of the labs are within normal limits. BUN 24, creatinine 1.38, AST, ALT, T bilirubin and alkaline phosphatase are normal, T bilirubin is 1.5. IMPRESSION: 1. Alcoholic cirrhosis of the liver with gradual decompensation. 2. Recurrent anemia with intermittent GI bleed status post EGD 2 days ago that showed small esophageal varices and no active bleeding. 3. Hepatic encephalopathy, remains on lactulose and doing much better. RECOMMENDATION: 1. Monitor CBC. 2. Continue with lactulose. 3. Continue Protonix 40 mg daily. 4. Continue with current diuretics with Lasix and Aldactone for ascites. 5. Will follow with you. Thank you for this consultation. MMODL / IJN: [id number] /
--- NOTE | 2019-09-07 16:32 | P.PN ---
Subjective Progress Note Date: 09/07/19 09/07/2019, patient seen eval examined during the rounds, mental status remains stable, patient is alert awake oriented 3, hemoglobin have been stable, status post endoscopy noted to have very crisis along with evidence of pulmonary hypertension but no active source of bleeding has been identified, from r espiratory standpoint doing well, remains afebrile and hemodynamically stable, saturation is 90-92% on 2 L oxygen, computed tomography scan of the chest has been reviewed sister of fluid overload interstitial edema and patchy bilateral infiltrate noted, patient has been appropriately treated with diuretics as well as IV Unasyn This is a 74-year-old female who was seen evaluated examined in the ICU patient was admitted originally on the 09/01/2019 due to generalized weakness, patient was having increasing progressive asked weakness, her significant history of gastric cancer diagnosed about 7 years ago status post chemotherapy, she has issues associated with the peripheral neuropathy she was noted to be anemic as well as thrombocytopenic, chest x-ray indicated above the prominent diffuse m arking, LV functions are good on echo ejection fraction is 60%, she developed problems with GI bleed which is thought to be gastric crisis with history of cirrhosis in the past, progressively patient was found to be more somnolent and lethargic transferred to the ICU, posttransfusion ICU patient woke up and alert oriented 3, she is waiting for CAT scan of the chest abdominal and pelvis, patient will likely undergo endoscopy, reviewed data revealed that her hemoglobin and is stable for 7.5 platelets are 62,000, her foot x-ray shows a foreign body orthopedic services following, computed tomography scan of the brain revealed atrophic changes noted acute lesion identified Objective - Vital Signs Vital signs: Vital Signs Temp 98.2 F 09/07/19 11:20 Pulse 73 09/07/19 15:35 Resp 16 09/07/19 11:20 BP 122/53 09/07/19 11:20 Pulse Ox 92 L 09/07/19 11:20 Intake & Output 09/06/19 09/07/19 09/07/19 18:59 06:59 18:59 Intake Total 600 577 760 Output Total 200 201 Balance 400 376 760 Weight 71.5 kg 71.5 kg Intake: IV 500 160 Ampicillin-Sulbactam 3 gm 200 100 In Sodium Chloride 0.9% 100 ml @ 200 mls/hr IVPB Q8HR [facility] Rx#:[id number] Normal Saline 200 60 Sodium Ferric Gluconat- 100 Sucrose 125 mg In Sodium Chloride 0.9% 100 ml @ 100 mls/hr IVPB ONCE ONE Rx#:[id number] Intake, IV Titration 100 Amount Magnesium Sulfate-D5w Pmx 100 1 gm In Dextrose/Water 1 100ml.bag @ 100 mls/hr IVPB ONCE ONE Rx#: [id number] Oral 100 477 600 Output: Stool 200 200 Urine/Stool Mix 1 Other: Voiding Method Bedside Commode Bedside Commode Bedside Commode # Voids 1 1 1 # Bowel Movements 2 1 - Exam - Constitutional General appearance: average body habitus, cooperative, disheveled - EENT Eyes: PERRLA, poor dentition Ears: bilateral: normal - Neck Neck: normal ROM Carotids: bilateral: upstroke normal Thyroid: bilateral: normal size - Respiratory Respiratory: bilateral: CTA - Cardiovascular Rhythm: regular Heart sounds: normal: S1, S2 - Gastrointestinal General gastrointestinal: normal bowel sounds - Integumentary Integumentary: normal turgor - Neurologic Neurologic: CNII-XII intact - Musculoskeletal Musculoskeletal: gait normal, generalized weakness, strength equal bilaterally - Psychiatric Psychiatric: A&O x's 3, appropriate affect, intact judgment & insight - Labs CBC & Chem 7: 09/06/19 05:29 09/06/19 05:29 Labs: Microbiology - Last 24 Hours (Table) 09/03/19 01:00 Blood Culture - Preliminary Blood No Growth after 96 hours 09/03/19 01:00 Blood Culture - Preliminary Blood No Growth after 96 hours 09/06/19 16:00 Stool Culture - Preliminary Stool Assessment and Plan Assessment: Bilateral patchy pneumonia Bilateral pleural effusion as well as interstitial edema likely related to congestive heart failure Altered mental status likely metabolic multifactorial, improved significantly Elevated d-dimer patient is waiting for computed tomography scan of the chest abdominal and pelvis GI bleed likely associated with the esophageal lysis due to prior history of the cirrhosis of the liver as well as history of gastric cancer, endoscopy is being planned Peripheral neuropathy post-chemo, neurology is following Plan: Overall continued to provide supportive care, continue DVT peptic ulcer disease prophylaxis increase activity as tolerated, monitor hemoglobin closely along with platelets, agree with endoscopy, computed tomography scan of the chest done pelvis been reviewed with further recommendations pending plan of care as per clinical response of the patient if patient remains stable can moved up to the ICU post-computed tomography scan Time with Patient: Greater than 30
[2019-09-07 16:42] VITALS: BP 135/61; PULSE 80; TEMP 99
== END 2019-09-07 19:10 | disposition home or self-care (01) | DRG 377 ==
LOC: EC 13:12 → 5NMEDONC 14:15 → 2SICU 09-03 15:42 → 3SCARD 09-04 18:33
PROVIDERS: ADMIT Family Medicine; ATTEND Family Medicine
PROC: 30233N1 Transfusion of Nonautologous Red Blood Cells into Peripheral Vein, Percutaneous Approach (ICD-10-PCS; 2019-09-01)
PROC: 0DJ08ZZ Inspection of Upper Intestinal Tract, Via Natural or Artificial Opening Endoscopic (ICD-10-PCS; principal; 2019-09-05 07:30)
DX: K92.2 Gastrointestinal hemorrhage, unspecified (principal); G93.41 Metabolic encephalopathy; J69.0 Pneumonitis due to inhalation of food and vomit; E44.0 Moderate protein-calorie malnutrition; N17.9 Acute kidney failure, unspecified; K76.6 Portal hypertension; B37.0 Candidal stomatitis; F05 Delirium due to known physiological condition; I13.0 Hypertensive heart and chronic kidney disease with heart failure and stage 1 through stage 4 chronic kidney disease, or unspecified chronic kidney disease; D62 Acute posthemorrhagic anemia; E87.1 Hypo-osmolality and hyponatremia; I50.32 Chronic diastolic (congestive) heart failure; Z11.59 Encounter for screening for other viral diseases; K70.40 Alcoholic hepatic failure without coma; D69.6 Thrombocytopenia, unspecified; I27.20 Pulmonary hypertension, unspecified; L89.152 Pressure ulcer of sacral region, stage 2; D63.1 Anemia in chronic kidney disease; G25.3 Myoclonus; G62.0 Drug-induced polyneuropathy; L97.529 Non-pressure chronic ulcer of other part of left foot with unspecified severity; N18.3 Chronic kidney disease, stage 3 (moderate); K70.30 Alcoholic cirrhosis of liver without ascites; I48.91 Unspecified atrial fibrillation; J44.9 Chronic obstructive pulmonary disease, unspecified; E78.5 Hyperlipidemia, unspecified; M19.90 Unspecified osteoarthritis, unspecified site; I85.10 Secondary esophageal varices without bleeding; K21.9 Gastro-esophageal reflux disease without esophagitis; F41.9 Anxiety disorder, unspecified; F32.9 Major depressive disorder, single episode, unspecified; I35.8 Other nonrheumatic aortic valve disorders; K31.89 Other diseases of stomach and duodenum; R09.02 Hypoxemia; G25.0 Essential tremor; E53.8 Deficiency of other specified B group vitamins; F17.210 Nicotine dependence, cigarettes, uncomplicated; G25.81 Restless legs syndrome; E03.9 Hypothyroidism, unspecified; R32 Unspecified urinary incontinence; R47.81 Slurred speech; E87.6 Hypokalemia; D73.1 Hypersplenism; K44.9 Diaphragmatic hernia without obstruction or gangrene; M62.838 Other muscle spasm; T45.1X5A Adverse effect of antineoplastic and immunosuppressive drugs, initial encounter; Z68.26 Body mass index [BMI] 26.0-26.9, adult; Z79.890 Hormone replacement therapy; Z79.899 Other long term (current) drug therapy; Z79.51 Long term (current) use of inhaled steroids; Z86.73 Personal history of transient ischemic attack (TIA), and cerebral infarction without residual deficits; Z92.3 Personal history of irradiation; Z87.01 Personal history of pneumonia (recurrent); Z90.710 Acquired absence of both cervix and uterus; Z98.890 Other specified postprocedural states; Z98.42 Cataract extraction status, left eye; Z98.41 Cataract extraction status, right eye; Z92.21 Personal history of antineoplastic chemotherapy; Z85.42 Personal history of malignant neoplasm of other parts of uterus; Z85.028 Personal history of other malignant neoplasm of stomach; Z80.9 Family history of malignant neoplasm, unspecified
CPT/HCPCS: 36415; 36430; 36600; 43235; 70450; 71045; 71046; 71260; 74177; 80048; 80053; 81003; 82140; 82247; 82272; 82553; 82728; 82805; 83540; 83550; 83605; 83615; 83735; 83880; 84132; 84450; 84460; 85025; 85027; 85379; 85610; 85730; 86140; 86850; 86870; 86880; 86900; 86901; 86920; 87040; 87045; 87046; 93005; 94640; 94760; 96361; 96374; 99291

== ENCOUNTER 2019-09-14 12:11 | Inpatient (IN) | payer MEDICARE ==
[2019-09-14] MEDS ORDERED: PANTOPRAZOLE 40 MG/10 ML VIAL IVP STA ×2 (12:24→13:40)
[2019-09-14] MEDS ORDERED: SODIUM CHLORIDE 0.9% 500 ML 500 ML IV STA ×2 (12:24→13:39)
--- NOTE | 2019-09-14 12:43 | ED ---
GI Bleed HPI - General Source: patient Mode of arrival: ambulatory Limitations: no limitations <Marian Scott - Last Filed: 09/14/19 14:01> <Torey Resendiz - Last Filed: 09/14/19 14:41> - General Chief complaint: GI Bleed Stated complaint: Low Hemoglobin Time Seen by Provider: 09/14/19 12:23 - History of Present Illness Initial comments: 73yo female presenting today for chief complaint of persistent dark stools ge neralized weakness, cold intolerance. Patient states she is recently discharged from this facility for GI bleed which was attributed to varices. Patient states that she was feeling better upon discharge however has become progressively more weak cold intolerance noticing darker stools. Patient denies any anticoagulation use. Patient denies any abdominal pain nausea vomiting hematemesis bright red stools. Patient denies any syncope but states she has had felt lightheaded. Denies any chest pain or shortness of breath denies leg swelling. Patient denies any fevers. Admits to a chronic wound of the left toe, denies any acute changes. Remaining review of systems negative upon arrival patient does not appear in acute distress. BP within acceptable limits, HR WNL. (Marian Scott) - Related Data Home Medications Medication Instructions Recorded Confirmed Ferrous Sulfate [Feosol] 325 mg PO BID 10/29/16 09/02/19 Donepezil [Aricept] 10 mg PO HS 11/07/17 09/02/19 Levothyroxine Sodium [Synthroid] 25 mcg PO DAILY 11/07/17 09/02/19 Omeprazole [PriLOSEC] 40 mg PO DAILY 11/07/17 09/02/19 Cetirizine HCl [Zyrtec] 10 mg PO DAILY 01/14/19 09/02/19 Escitalopram [Lexapro] 10 mg PO DAILY 01/14/19 09/02/19 Memantine [Namenda] 10 mg PO BID 01/14/19 09/02/19 Acetaminophen Tab [Tylenol] 650 mg PO Q6H PRN 05/01/19 09/02/19 Ipratropium-Albuterol Nebulize 3 ml INHALATION RT-QID PRN 05/01/19 09/02/19 [Duoneb 0.5 mg-3 mg/3 ml Soln] Baclofen 5 mg PO TID 06/28/19 09/02/19 SILVER sulfADIAZINE Cream 1 applic TOPICAL BID 06/28/19 09/02/19 [Silvadene 1% Cream] rOPINIRole HCL [Requip] 0.25 mg PO HS 06/28/19 09/02/19 traMADol HCl [Ultram] 50 mg PO BID PRN 07/21/19 09/02/19 Furosemide [Lasix] 20 mg PO HS 08/16/19 09/02/19 predniSONE See Taper PO DAILY 08/16/19 09/02/19 Previous Rx's Medication Instructions Recorded Propranolol [Inderal] 10 mg PO TID #90 tab 06/30/19 Budesonide-Formot 160-4.5 Mcg 2 puff INHALATION RT-BID #1 inh 08/13/19 [Symbicort 160-4.5 Mcg Inhaler] Furosemide [Lasix] 40 mg PO DAILY #90 tab 08/13/19 Lisinopril [Zestril] 20 mg PO DAILY #90 tab 08/13/19 Nicotine 14Mg/24Hr Patch [Habitrol] 1 patch TRANSDERM DAILY #30 patch 08/13/19 Potassium Chloride ER [K-Dur 20] 20 meq PO DAILY #30 tab 08/13/19 Lactulose [Cephulac] 20 gm PO BID #120 ml 09/07/19 Primidone [Mysoline] 25 mg PO Q24H #0 dose 09/07/19 Allergies Allergy/AdvReac Type Severity Reaction Status Date / Time No Known Allergies Allergy Verified 09/14/19 12:23 Review of Systems ROS Other: All systems not noted in ROS Statement are negative. <Marian Scott - Last Filed: 09/14/19 14:01> ROS Other: All systems not noted in ROS Statement are negative. <Torey Resendiz - Last Filed: 09/14/19 14:41> ROS Statement: Those systems with pertinent positive or pertinent negative responses have been documented in the HPI. Past Medical History Past Medical History: Atrial Fibrillation, Cancer, Heart Failure, COPD, CVA/TIA, GERD/Reflux, GI Bleed, Hyperlipidemia, Hypertension, Osteoarthritis (OA) Additional Past Medical History / Comment(s): hx. uterine cancer, chemo 6 years ago, TIA several yrs. ago-forgetful, neuropathy feet & legs & hands, ANEMIA History of Any Multi-Drug Resistant Organisms: None Reported Past Surgical History: Hysterectomy, Tonsillectomy Additional Past Surgical History / Comment(s): COLONOSCOPY. EGD. BILAT CATARACTS REMOVED Past Anesthesia/Blood Transfusion Reactions: No Reported Reaction Past Psychological History: Anxiety, Depression Smoking Status: Current every day smoker Past Alcohol Use History: None Reported Past Drug Use History: None Reported - Past Family History Mother Family Medical History: Cancer Father History Unknown: Yes Family Medical History: Cancer Brother(s) Family Medical History: Cancer <Marian Scott - Last Filed: 09/14/19 14:01> General Exam Limitations: no limitations <Marian Scott - Last Filed: 09/14/19 14:01> - General Exam Comments Initial Comments: General: The patient is awake and alert, appears pale Eye: Pupils are equal, round and reactive to light, extra-ocular movements are intact. No nystagmus. There is normal conjunctiva bilaterally. No signs of icterus. Ears, nose, mouth and throat: There are moist mucous membranes and no oral le sions. Neck: The neck is supple, there is no tenderness or JVD. Cardiovascular: There is a regular rate and rhythm. No murmur, rub or gallop is appreciated. Respiratory: Lungs are clear to auscultation, respirations are non-labored, breath sounds are equal. No wheezes, stridor, rales, or rhonchi. Gastrointestinal: Soft, non-distended, non-tender abdomen without masses or organomegaly noted. There is no rebound or guarding present Musculoskeletal: Normal ROM, no tenderness. Strength 5/5. Sensation intact. Radial pulses equal bilaterally 2+. Neurological: A&O x 3. CN II-XII intact grossly, There are no obvious motor or sensory deficits. Coordination appears grossly intact. Speech is normal. Skin: Skin is warm and dry and no rashes or lesions are noted. Psychiatric: Cooperative, appropriate mood & affect, normal judgment. (Marian Scott) Course Vital Signs 09/14/19 09/14/19 09/14/19 12:13 14:37 14:39 Temperature 97.3 F L Pulse Rate 81 72 72 Respiratory 20 20 20 Rate Blood Pressure 136/71 103/61 103/61 O2 Sat by Pulse 99 99 99 Oximetry Medical Decision Making - Lab Data Result diagrams: 09/14/19 12:33 09/14/19 12:33 <Marian Scott - Last Filed: 09/14/19 14:01> - Lab Data Result diagrams: 09/14/19 12:33 09/14/19 12:33 <Torey Resendiz - Last Filed: 09/14/19 14:41> - Medical Decision Making Total of 45 minutes of critical care time was spent this patient including e xamination reexamination and to bring labs discussing case with multiple physicians. 74-year-old patient presenting for a cold intolerance denies weakness. Recently evaluated for low hemoglobin approximately one week ago. Patient found to have significant anemia. Blood prolactin no hematemesis history of varices started on octreotide/protonix will be on drip for octreotide given history of varices. Manitanence fluids ruining. Patient BP and HR have been stable. Initiated tranfusion orders. P atient will be admitted to ICU. Dr. Resendiz is agreeable to care plan and admission. (Marian Scott) PA no patient reexamined and reevaluated by myself, Dr. Resendiz. Patient resting comfortably in bed. Vital signs stable. Patient updated on results and plan. Case was discussed in detail with Dr. Davila who will admit his patient. Patient will be admitted to ICU secondary to anemia. Case is also discussed with Dr. Back, who will consult. GI will be placed on consult. Case also discussed with hematology, practitioner Edith per Dr. Johnson requesting case patient needs emergent blood transfusion. He states she has a known history of antibodies. (Torey Resendiz) - Lab Data Lab Results 09/14/19 09/14/19 09/14/19 Range/Units 12:33 12:33 12:33 WBC 10.8 H (3.8-10.6) k/uL RBC 1.41 L (3.80-5.40) m/uL Hgb 4.5 L* D (11.4-16.0) gm/dL Hct 15.2 L* (34.0-46.0) % MCV 107.9 H D (80.0-100.0) fL MCH 32.2 (25.0-35.0) pg MCHC 29.8 L (31.0-37.0) g/dL RDW 23.3 H (11.5-15.5) % Plt Count 118 L D (150-450) k/uL Neutrophils % (Manual) 88 % Lymphocytes % (Manual) 8 % Monocytes % (Manual) 4 % Neutrophils # (Manual) 9.50 H (1.3-7.7) k/uL Lymphocytes # (Manual) 0.86 L (1.0-4.8) k/uL Monocytes # (Manual) 0.43 (0-1.0) k/uL Nucleated RBCs 0 (0-0) /100 WBC Manual Slide Review Performed Polychromasia Present Hypochromasia Marked Anisocytosis Moderate Macrocytosis Marked A APTT 28.7 (22.0-30.0) sec Sodium 137 (137-145) mmol/L Potassium 3.7 (3.5-5.1) mmol/L Chloride 106 (98-107) mmol/L Carbon Dioxide 24 (22-30) mmol/L Anion Gap 7 mmol/L BUN 36 H (7-17) mg/dL Creatinine 1.53 H (0.52-1.04) mg/dL Est GFR (CKD-EPI)AfAm 38 (>60 ml/min/1.73 sqM) Est GFR (CKD-EPI)NonAf 33 (>60 ml/min/1.73 sqM) Glucose 211 H (74-99) mg/dL Calcium 7.8 L (8.4-10.2) mg/dL Total Bilirubin 0.6 (0.2-1.3) mg/dL AST 29 (14-36) U/L ALT 14 (4-34) U/L Alkaline Phosphatase 82 (38-126) U/L Troponin I (0.000-0.034) ng/mL Total Protein 5.8 L (6.3-8.2) g/dL Albumin 2.2 L (3.5-5.0) g/dL Stool Occult Blood (Negative) 09/14/19 09/14/19 Range/Units 12:33 12:36 WBC (3.8-10.6) k/uL RBC (3.80-5.40) m/uL Hgb (11.4-16.0) gm/dL Hct (34.0-46.0) % MCV (80.0-100.0) fL MCH (25.0-35.0) pg MCHC (31.0-37.0) g/dL RDW (11.5-15.5) % Plt Count (150-450) k/uL Neutrophils % (Manual) % Lymphocytes % (Manual) % Monocytes % (Manual) % Neutrophils # (Manual) (1.3-7.7) k/uL Lymphocytes # (Manual) (1.0-4.8) k/uL Monocytes # (Manual) (0-1.0) k/uL Nucleated RBCs (0-0) /100 WBC Manual Slide Review Polychromasia Hypochromasia Anisocytosis Macrocytosis APTT (22.0-30.0) sec Sodium (137-145) mmol/L Potassium (3.5-5.1) mmol/L Chloride (98-107) mmol/L Carbon Dioxide (22-30) mmol/L Anion Gap mmol/L BUN (7-17) mg/dL Creatinine (0.52-1.04) mg/dL Est GFR (CKD-EPI)AfAm (>60 ml/min/1.73 sqM) Est GFR (CKD-EPI)NonAf (>60 ml/min/1.73 sqM) Glucose (74-99) mg/dL Calcium (8.4-10.2) mg/dL Total Bilirubin (0.2-1.3) mg/dL AST (14-36) U/L ALT (4-34) U/L Alkaline Phosphatase (38-126) U/L Troponin I <0.012 (0.000-0.034) ng/mL Total Protein (6.3-8.2) g/dL Albumin (3.5-5.0) g/dL Stool Occult Blood Positive H (Negative) Disposition Is patient prescribed a controlled substance at d/c from ED?: No Time of Disposition: 13:41 Decision to Admit Reason: Admit from EC Decision Date: 09/14/19 Decision Time: 13:41 <Marian Scott - Last Filed: 09/14/19 14:01> <Torey Resendiz - Last Filed: 09/14/19 14:41> Clinical Impression: Anemia, Generalized weakness, Cold intolerance, Melena, Hx of esophageal varices Disposition: ADMITTED IP TO THIS [facility] Condition: Serious
[2019-09-14 13:27] LABS: Anisocytosis Moderate; Hypochromasia Marked; MCH 32.2 pg (25.0-35.0); MCHC 29.8 g/dL (31.0-37.0); Macrocytosis Marked; Mean Platelet Volume 11.2; RBC 1.41 m/uL (3.80-5.40); RDW 23.3 % (11.5-15.5); WBC 10.8 k/uL (3.8-10.6)
[2019-09-14 13:32] LABS: HCT 15.2 % (34.0-46.0); HGB 4.5 gm/dL (11.4-16.0)
[2019-09-14 13:33] LABS: MCV 107.9 fL (80.0-100.0); Platelet Count 118 k/uL (150-450)
[2019-09-14] MEDS ORDERED: OCTREOTIDE 100 MCG/ML INJ IVP STA (13:43)
[2019-09-14] MEDS ORDERED: NALOXONE 0.4 MG/ML 1 ML VIAL IV PRN (13:46)
[2019-09-14 13:52] LABS: Albumin 2.2 g/dL (3.5-5.0); Calcium 7.8 mg/dL (8.4-10.2); Potassium 3.7 mmol/L (3.5-5.1); Total Bilirubin 0.6 mg/dL (0.2-1.3); Total Protein 5.8 g/dL (6.3-8.2)
[2019-09-14 14:19] LABS: Lymphocytes # (M) 0.86 k/uL (1.0-4.8); Monocytes # (M) 0.43 k/uL (0-1.0); Neutrophils % (M) 88 %; Nucleated Red Blood Cells 0 /100 WBC (0-0); Total Cells Counted 100
[2019-09-14 14:20] LABS: Polychromasia Present
[2019-09-14] MEDS: SODIUM CHLORIDE 0.9% 1,000 ML IV SCH ×3 (14:27→21:21)
[2019-09-14] MEDS ORDERED: OCTREOTIDE 500 MCG in SODIUM CHLORIDE 0.9% 250 ML IV SCH (15:00)
[2019-09-14 15:10] LABS: Glucose,Whole Blood 131 mg/dL (75-99)
--- NOTE | 2019-09-14 15:48 | P.CNPUL ---
History of Present Illness Consult date: 09/14/19 Reason for consult: dyspnea Chief complaint: ICU care History of present illness: This is a 74-year-old female who was brought into emergency department with history of ongoing black diarrhea stool, patient has a recent admission a few weeks ago with the similar problem patient has advanced dementia and thymus disease as well, on arrival she was noted to have a hemoglobin of 4 patient has been started on Sandostatin drip has received a dose of IV Protonix, hemodynamically she is stable, with stable blood pressure and heart rate, patient is waiting for blood transfusion she has 2 antecubital veins perfusing well currently on IV fluids, denies any chest pain or shortness of breath except on exertion, denies any abdominal pain, no bowel movement recently has been noted since hospitalized, GI services has been consulted as well, Review of Systems All systems: negative Past Medical History Past Medical History: Atrial Fibrillation, Cancer, Heart Failure, COPD, CVA/TIA, GERD/Reflux, GI Bleed, Hyperlipidemia, Hypertension, Osteoarthritis (OA) Additional Past Medical History / Comment(s): hx. uterine cancer, chemo 6 years ago, TIA several yrs. ago-forgetful, neuropathy feet & legs & hands, ANEMIA History of Any Multi-Drug Resistant Organisms: None Reported Past Surgical History: Hysterectomy, Tonsillectomy Additional Past Surgical History / Comment(s): COLONOSCOPY. EGD. BILAT CATARACTS REMOVED Past Anesthesia/Blood Transfusion Reactions: No Reported Reaction Past Psychological History: Anxiety, Depression Smoking Status: Current every day smoker Past Alcohol Use History: None Reported Past Drug Use History: None Reported - Past Family History Mother Family Medical History: Cancer Father History Unknown: Yes Family Medical History: Cancer Brother(s) Family Medical History: Cancer Medications and Allergies Home Medications Medication Instructions Recorded Confirmed Type Ferrous Sulfate [Feosol] 325 mg PO BID 10/29/16 09/14/19 History Donepezil [Aricept] 10 mg PO HS 11/07/17 09/14/19 History Levothyroxine Sodium [Synthroid] 25 mcg PO DAILY 11/07/17 09/14/19 History Omeprazole [PriLOSEC] 40 mg PO DAILY 11/07/17 09/14/19 History Cetirizine HCl [Zyrtec] 10 mg PO DAILY 01/14/19 09/14/19 History Escitalopram [Lexapro] 10 mg PO DAILY 01/14/19 09/14/19 History Memantine [Namenda] 10 mg PO BID 01/14/19 09/14/19 History Acetaminophen Tab [Tylenol] 650 mg PO Q6H PRN 05/01/19 09/14/19 History Ipratropium-Albuterol Nebulize 3 ml INHALATION RT-QID PRN 05/01/19 09/14/19 History [Duoneb 0.5 mg-3 mg/3 ml Soln] Baclofen 5 mg PO TID PRN 06/28/19 09/14/19 History SILVER sulfADIAZINE Cream 1 applic TOPICAL BID 06/28/19 09/14/19 History [Silvadene 1% Cream] rOPINIRole HCL [Requip] 0.25 mg PO HS 06/28/19 09/14/19 History Propranolol [Inderal] 10 mg PO TID #90 tab 06/30/19 09/14/19 Rx traMADol HCl [Ultram] 50 mg PO BID PRN 07/21/19 09/14/19 History Budesonide-Formot 160-4.5 Mcg 2 puff INHALATION RT-BID #1 inh 08/13/19 09/14/19 Rx [Symbicort 160-4.5 Mcg Inhaler] Lisinopril [Zestril] 20 mg PO DAILY #90 tab 08/13/19 09/14/19 Rx Nicotine 14Mg/24Hr Patch [Habitrol] 1 patch TRANSDERM DAILY #30 patch 08/13/19 09/14/19 Rx Potassium Chloride ER [K-Dur 20] 20 meq PO DAILY #30 tab 08/13/19 09/14/19 Rx Furosemide [Lasix] 20 mg PO HS 08/16/19 09/14/19 History Primidone [Mysoline] 25 mg PO Q24H #0 dose 09/07/19 09/14/19 Rx Apixaban [Eliquis Starter Pack See Taper PO DAILY 09/14/19 09/14/19 History (for VTE)] Furosemide [Lasix] 40 mg PO DAILY 09/14/19 09/14/19 History Lactulose [Cephulac] 20 gm PO BID PRN 09/14/19 09/14/19 History Magnesium Oxide [Magox 400] 400 mg PO DAILY 09/14/19 09/14/19 History Metolazone [Zaroxolyn] 2.5 mg PO DAILY 09/14/19 09/14/19 History Allergies Allergy/AdvReac Type Severity Reaction Status Date / Time No Known Allergies Allergy Verified 09/14/19 15:00 Physical Exam Vitals: Vital Signs Temp Pulse Resp BP Pulse Ox 09/14/19 15:15 67 12 120/38 96 09/14/19 15:00 96.8 F L 70 12 121/43 89 L 09/14/19 14:39 72 20 103/61 99 09/14/19 14:37 72 20 103/61 99 09/14/19 12:13 97.3 F L 81 20 136/71 99 Intake and Output 09/14/19 09/14/19 09/14/19 06:59 14:59 22:59 Intake Total 155 Balance 155 Intake: IV 155 Octreotide 500 mcg In 25 Sodium Chloride 0.9% 250 ml @ 50 MCG/HR 25 mls/hr IV .Q10H [facility] Rx#: [id number] Sodium Chloride 0.9% 1, 130 000 ml @ 150 mls/hr IV . Q6H40M [facility] Rx#:[id number] Other: # Voids 2 Weight 63.503 kg - Constitutional General appearance: average body habitus, cooperative, disheveled - EENT Eyes: EOMI, PERRLA ENT: hard of hearing Ears: bilateral: normal - Neck Neck: normal ROM Carotids: bilateral: upstroke normal Thyroid: bilateral: normal size - Respiratory Respiratory: bilateral: CTA - Cardiovascular Rhythm: regular Heart sounds: normal: S1, S2 - Gastrointestinal General gastrointestinal: normal bowel sounds - Integumentary Integumentary: normal turgor - Neurologic Neurologic: CNII-XII intact - Musculoskeletal Musculoskeletal: gait normal, generalized weakness, strength equal bilaterally - Psychiatric Psychiatric: A&O x's 3, appropriate affect, intact judgment & insight Results - Laboratory Findings CBC and BMP: 09/14/19 12:33 09/14/19 12:33 Abnormal lab findings: Abnormal Labs 09/14/19 09/14/19 09/14/19 12:33 12:33 12:36 WBC 10.8 H RBC 1.41 L Hgb 4.5 L* D Hct 15.2 L* MCV 107.9 H D MCHC 29.8 L RDW 23.3 H Plt Count 118 L D Neutrophils # (Manual) 9.50 H Lymphocytes # (Manual) 0.86 L Macrocytosis Marked A BUN 36 H Creatinine 1.53 H Glucose 211 H POC Glucose (mg/dL) Calcium 7.8 L Total Protein 5.8 L Albumin 2.2 L Stool Occult Blood Positive H 09/14/19 15:09 WBC RBC Hgb Hct MCV MCHC RDW Plt Count Neutrophils # (Manual) Lymphocytes # (Manual) Macrocytosis BUN Creatinine Glucose POC Glucose (mg/dL) 131 H Calcium Total Protein Albumin Stool Occult Blood Assessment and Plan Assessment: Likely upper GI bleed presented as a lower GI bleed, has been on Eliquis Severe anemia blood loss likely chronic Advanced COPD not in exacerbation Chronic atrial fibrillation paroxysmal, currently in sinus rhythm Diastolic heart failure History of prior CVA TIA Dyslipidemia and hypertension hypertensive cardiovascular disease Plan: Transfusion of 2 unit packed RBC We'll stop Sandostatin drip after current bag IV proton pump inhibitors Monitor hemoglobin closely next check will be after 2 units of blood transfusion We will check another level tomorrow if remains stable can be moved out of the ICU Continue to hold anticoagulation for another 24-48 hours until cleared from GI services COPD is stable can use bronchodilator on an as-needed basis If patient remains stable can be moved out of the ICU by tomorrow morning Further recommendations pending plan of care as per clinical response of the patient Time with Patient: Greater than 30
[2019-09-14] MEDS ORDERED: OCTREOTIDE 100 MCG/ML INJ IVP SCH (16:00)
[2019-09-14] MEDS ORDERED: SODIUM FERRIC GLUCONAT-SUCROSE 125 MG in SODIUM CHLORIDE 0.9% 100 ML IVPB ONE (17:00)
[2019-09-14] MEDS ORDERED: LACTULOSE 20 GM/30 ML CUP PO PRN (17:14)
[2019-09-14] MEDS ORDERED: traMADol 50 MG TAB PO PRN (17:14)
[2019-09-14] MEDS: CYANOCOBALAMIN 1,000 MCG/ML 1 ML VIAL IM SCH (18:29)
[2019-09-14 19:01] LABS: Anisocytosis Moderate; Hypochromasia Marked; MCH 31.8 pg (25.0-35.0); MCHC 28.8 g/dL (31.0-37.0); MCV 110.3 fL (80.0-100.0); Mean Platelet Volume 11.1; Platelet Count 107 k/uL (150-450); RBC 1.45 m/uL (3.80-5.40); RDW 23.4 % (11.5-15.5)
[2019-09-14 19:06] LABS: HGB 4.6 gm/dL (11.4-16.0); Macrocytosis Marked
--- NOTE | 2019-09-14 19:39 | HP ---
HISTORY AND PHYSICAL 74-year-old female brought to the emergency room with ongoing black diarrhea stool, had advanced dementia. Hemoglobin 4.6. Started on a Sandostatin drip. IV Protonix. Blood transfusions pending. Severe anemia secondary to most likely more GI bleeding. She has had multiple esophageal varices taken care of. Last EGD did not show any significant bleeding or minimal varices, but she is obviously bleeding, may need to do a tagged red blood cell scan and after multiple blood transfusions. PAST MEDICAL HISTORY: Atrial fibrillation, heart failure, COPD, CVA, TIA, GERD, GI bleed, hypertension, osteoarthritis, uterine cancer, neuropathy, anemia. SURGERIES: Hysterectomy, tonsillectomy, colonoscopy, cataracts, anxiety, depression. SOCIAL HISTORY: Current everyday smoker. No alcohol. No illicit drugs. FAMILY HISTORY: Mother cancer. Father with cancer. Brother cancer. MEDICATIONS: Home medicines: Feosol 325 b.i.d., Aricept 10 daily, Synthroid 25 mcg daily. Prilosec 40 daily, Zyrtec 10 daily, Lexapro 10 daily, Namenda 10 b.i.d., Tylenol p.r.n., DuoNeb q.i.d., baclofen 5 mg t.i.d., Silvadene cream b.i.d., Requip 0.5 q.h.s., Inderal 10 t.i.d., tramadol 50 b.i.d., Symbicort 2 puffs b.i.d., Zestril 20 mg daily, nicotine patch, potassium chloride 20 mEq daily, Mysoline 25 mg every 24 hours, Lasix 40 mg in the morning, 20 at night, Mag-Ox 400 daily, Zaroxolyn 2.5 daily. ALLERGIES: Negative. PHYSICAL EXAMINATION: Vital signs temp 96-97, pulse 60s to 70s, respiratory rate 18-20, blood pressure is 120s to 130s over 60s to 70s. HEENT: She is weak, fatigued, skin pallor, pallor. Poor coloration. She appears anemic. Dry mucous membranes. Poor skin turgor. HEART regular rate and rhythm. LUNGS are decreased breath sounds. NECK is supple. NEUROLOGIC cranial nerves are intact. MUSCULOSKELETAL: Generalized weakness. PSYCH fair mood and affect. White count 10.9, hemoglobin was 4.5, platelets 118, BUN 36, creatinine 1.53. ASSESSMENT: 1. Likely upper gastrointestinal bleed presenting as lower gastrointestinal bleed. She has been on Eliquis. 2. History of severe blood loss anemia. 3. Chronic obstructive pulmonary disease. 4. Chronic atrial fibrillation. 5. Diastolic heart failure. 6. Prior cerebrovascular accident, transient ischemic attack. 7. Multiple esophageal varices stenting. Transfuse 2 units of red cells and Sandostatin is being given. Continue Carafate for metabolic encephalopathy secondary to hepatic failure. Continue to hold anticoagulation. Would not recommend any more further blood thinners as an outpatient. Continue with breathing treatments. Please see further orders. ICU time: 45 minutes. MMODL / IJN: [id number] /
[2019-09-14] MEDS: FUROSEMIDE 20 MG TAB PO SCH (20:56)
[2019-09-14] MEDS: PROPRANOLOL 10 MG TAB PO SCH (20:56)
[2019-09-14] MEDS: MEMANTINE 10 MG TAB PO SCH (20:56)
[2019-09-14] MEDS: PANTOPRAZOLE 40 MG/10 ML VIAL IVP SCH (20:56)
[2019-09-14] MEDS: DONEPEZIL 10 MG TAB PO SCH (20:57)
[2019-09-14] MEDS: IPRATROPIUM-ALBUTEROL 3 ML NEB INHALATION PRN (21:39)
[2019-09-14] MEDS: SYMBICORT 160-4.5 MCG INHALER INHALATION SCH (22:01)
[2019-09-15] MEDS: SODIUM CHLORIDE 0.9% 1,000 ML IV SCH ×2 (04:00→15:43)
[2019-09-15 04:29] LABS: Anisocytosis Moderate; Hypochromasia Marked; MCH 32.6 pg (25.0-35.0); MCV 112.6 fL (80.0-100.0); Macrocytosis Marked; Mean Platelet Volume 10.9; RBC 1.23 m/uL (3.80-5.40); RDW 23.5 % (11.5-15.5); Reticulocyte % 9.8 % (0.5-2.0); WBC 8.3 k/uL (3.8-10.6)
[2019-09-15 04:36] LABS: HCT 13.9 % (34.0-46.0)
[2019-09-15 04:40] LABS: INR 1.5 (<1.2); Partial Thromboplastin Time 37.7 sec (22.0-30.0); Prothrombin Time 15.1 sec (9.0-12.0)
[2019-09-15 04:53] LABS: African American GFR (CKD) 43 (>60 ml/min/1.73 sqM); Anion Gap 2 mmol/L; Blood Urea Nitrogen 33 mg/dL (7-17); Calcium 7.5 mg/dL (8.4-10.2); Carbon Dioxide 26 mmol/L (22-30); Chloride 109 mmol/L (98-107); Glucose 102 mg/dL (74-99); LDH 568 U/L (313-618); Non-African American GFR(CKD) 37 (>60 ml/min/1.73 sqM); Potassium 3.8 mmol/L (3.5-5.1); Sodium 137 mmol/L (137-145)
[2019-09-15 05:28] LABS: Lymphocytes # (M) 0.33 k/uL (1.0-4.8); Monocytes # (M) 0.08 k/uL (0-1.0); Neutrophils # (M) 7.89 k/uL (1.3-7.7); Neutrophils % (M) 95 %; Nucleated Red Blood Cells 0 /100 WBC (0-0); Total Cells Counted 100
[2019-09-15 05:29] LABS: Polychromasia Present
[2019-09-15 05:33] LABS: Target Cells Present
[2019-09-15 05:43] LABS: Platelet Count 89 k/uL (150-450)
--- NOTE | 2019-09-15 06:43 | P.CONS ---
History of Present Illness - Reason for Consult Consult date: 09/14/19 - History of Present Illness 74-year-old female with medical history significant for chronic persistent anemia, decompensated alcoholic cirrhosis with varices, COPD, uterine cancer who presented to the hospital due to melena and weakness. The patient has been treated for anemia since 2014 and follows up with the hematology/oncology service. She has a known history of decompensated alcoholic cirrhosis and has previously undergone banding of varices. She's had numerous upper endoscopies including in June and on a recent admission on 09/05/2019 at which time the patient was found to have very small distal esophageal varices with mild portal hypertensive gastropathy and a small hiatal hernia with no active bleeding at that time. Patient was being treated for anemia at that time. She has also been noted to have angiectasia of the duodenum in the past treated with cold probe ablation therapy. Her last colonoscopy was in 05/2017 and within normal limits. Currently she is complaining of weakness and is being treated in the ICU. Her hemoglobin was only 4.5 on presentation with a WBC 10.8 and a platelet count of 118,000. Given antibodies she has been unable to receive blood products which have been ordered and are currently pending. Total bilirubin 0.6, alkaline phosphatase 82, AST 29 and ALT 14. Review of Systems REVIEW OF SYSTEMS: CONSTITUTIONAL: Denies any fevers, chills, weight change but she is reporting fatigue. CARDIOVASCULAR: Denies any chest pain, palpitations high or low blood pressures RESPIRATORY: Denies any hemoptysis or cough but does report shortness of breath worsened on exertion. GENITOURINARY: No dysuria or hematuria. MUSCULOSKELETAL: No weakness reported. SKIN: Denies any new rashes or lesions, jaundice or pallor. PSYCHIATRIC: Denies any depression or anxiety. NEUROLOGY: Denies headache, denies any new focal deficits. EARS/NOSE/THROAT: No recent hearing change, congestion, nasal discharge or sore throat. EYES: No pain in eyes, discharge or change in vision. GASTROINTESTINAL: As per HPI. Past Medical History Past Medical History: Atrial Fibrillation, Cancer, Heart Failure, COPD, CVA/TIA, GERD/Reflux, GI Bleed, Hyperlipidemia, Hypertension, Osteoarthritis (OA) Additional Past Medical History / Comment(s): hx. uterine cancer, chemo 6 years ago, TIA several yrs. ago-forgetful, neuropathy feet & legs & hands, ANEMIA History of Any Multi-Drug Resistant Organisms: None Reported Past Surgical History: Hysterectomy, Tonsillectomy Additional Past Surgical History / Comment(s): COLONOSCOPY. EGD. BILAT CATARACTS REMOVED Past Anesthesia/Blood Transfusion Reactions: No Reported Reaction Past Psychological History: Anxiety, Depression Smoking Status: Current every day smoker Past Alcohol Use History: None Reported Past Drug Use History: None Reported - Past Family History Mother Family Medical History: Cancer Father History Unknown: Yes Family Medical History: Cancer Brother(s) Family Medical History: Cancer Medications and Allergies Home Medications Medication Instructions Recorded Confirmed Type Ferrous Sulfate [Feosol] 325 mg PO BID 10/29/16 09/14/19 History Donepezil [Aricept] 10 mg PO HS 11/07/17 09/14/19 History Levothyroxine Sodium [Synthroid] 25 mcg PO DAILY 11/07/17 09/14/19 History Omeprazole [PriLOSEC] 40 mg PO DAILY 11/07/17 09/14/19 History Cetirizine HCl [Zyrtec] 10 mg PO DAILY 01/14/19 09/14/19 History Escitalopram [Lexapro] 10 mg PO DAILY 01/14/19 09/14/19 History Memantine [Namenda] 10 mg PO BID 01/14/19 09/14/19 History Acetaminophen Tab [Tylenol] 650 mg PO Q6H PRN 05/01/19 09/14/19 History Ipratropium-Albuterol Nebulize 3 ml INHALATION RT-QID PRN 05/01/19 09/14/19 History [Duoneb 0.5 mg-3 mg/3 ml Soln] Baclofen 5 mg PO TID PRN 06/28/19 09/14/19 History SILVER sulfADIAZINE Cream 1 applic TOPICAL BID 06/28/19 09/14/19 History [Silvadene 1% Cream] rOPINIRole HCL [Requip] 0.25 mg PO HS 06/28/19 09/14/19 History Propranolol [Inderal] 10 mg PO TID #90 tab 06/30/19 09/14/19 Rx traMADol HCl [Ultram] 50 mg PO BID PRN 07/21/19 09/14/19 History Budesonide-Formot 160-4.5 Mcg 2 puff INHALATION RT-BID #1 inh 08/13/19 09/14/19 Rx [Symbicort 160-4.5 Mcg Inhaler] Lisinopril [Zestril] 20 mg PO DAILY #90 tab 08/13/19 09/14/19 Rx Nicotine 14Mg/24Hr Patch [Habitrol] 1 patch TRANSDERM DAILY #30 patch 08/13/19 09/14/19 Rx Potassium Chloride ER [K-Dur 20] 20 meq PO DAILY #30 tab 08/13/19 09/14/19 Rx Furosemide [Lasix] 20 mg PO HS 08/16/19 09/14/19 History Primidone [Mysoline] 25 mg PO Q24H #0 dose 09/07/19 09/14/19 Rx Apixaban [Eliquis Starter Pack See Taper PO DAILY 09/14/19 09/14/19 History (for VTE)] Furosemide [Lasix] 40 mg PO DAILY 09/14/19 09/14/19 History Lactulose [Cephulac] 20 gm PO BID PRN 09/14/19 09/14/19 History Magnesium Oxide [Magox 400] 400 mg PO DAILY 09/14/19 09/14/19 History Metolazone [Zaroxolyn] 2.5 mg PO DAILY 09/14/19 09/14/19 History Allergies Allergy/AdvReac Type Severity Reaction Status Date / Time No Known Allergies Allergy Verified 09/14/19 15:00 Physical Exam Vitals: Vital Signs Temp Pulse Resp BP Pulse Ox 09/14/19 15:15 67 12 120/38 96 09/14/19 15:00 96.8 F L 70 12 121/43 89 L 09/14/19 14:39 72 20 103/61 99 09/14/19 14:37 72 20 103/61 99 09/14/19 12:13 97.3 F L 81 20 136/71 99 Intake and Output 09/14/19 09/14/19 09/14/19 06:59 14:59 22:59 Intake Total 155 Balance 155 Intake: IV 155 Octreotide 500 mcg In 25 Sodium Chloride 0.9% 250 ml @ 50 MCG/HR 25 mls/hr IV .Q10H [facility] Rx#: [id number] Sodium Chloride 0.9% 1, 130 000 ml @ 150 mls/hr IV . Q6H40M [facility] Rx#:[id number] Other: # Voids 2 Weight 63.503 kg On physical examination, patient appears comfortable in no apparent distress. HEAD: Normocephalic, atraumatic. EYES: No scleral icterus. No conjunctival injection. MOUTH: No lesions, tongue midline. NECK: Trachea midline, no gross abnormalities. CHEST: Decreased air entry in all lung [place]. HEART: S1-S2 appreciated. ABDOMEN: Soft, nontender to palpation. Bowel sounds are positive. No organomegaly. No guarding or rigidity. EXTREMITIES: No pedal edema. SKIN: No rashes, no jaundice. NEUROLOGIC: Alert and oriented to person and place. No focal deficits. Results CBC & Chem 7: 09/15/19 04:18 09/15/19 04:18 Labs: Abnormal Lab Results - Last 24 Hours (Table) 09/14/19 09/14/19 09/14/19 Range/Units 12:33 12:33 12:36 WBC 10.8 H (3.8-10.6) k/uL RBC 1.41 L (3.80-5.40) m/uL Hgb 4.5 L* D (11.4-16.0) gm/dL Hct 15.2 L* (34.0-46.0) % MCV 107.9 H D (80.0-100.0) fL MCHC 29.8 L (31.0-37.0) g/dL RDW 23.3 H (11.5-15.5) % Plt Count 118 L D (150-450) k/uL Neutrophils # (Manual) 9.50 H (1.3-7.7) k/uL Lymphocytes # (Manual) 0.86 L (1.0-4.8) k/uL Macrocytosis Marked A BUN 36 H (7-17) mg/dL Creatinine 1.53 H (0.52-1.04) mg/dL Glucose 211 H (74-99) mg/dL POC Glucose (mg/dL) (75-99) mg/dL Calcium 7.8 L (8.4-10.2) mg/dL Total Protein 5.8 L (6.3-8.2) g/dL Albumin 2.2 L (3.5-5.0) g/dL Stool Occult Blood Positive H (Negative) Crossmatch 09/14/19 09/14/19 Range/Units 14:21 15:09 WBC (3.8-10.6) k/uL RBC (3.80-5.40) m/uL Hgb (11.4-16.0) gm/dL Hct (34.0-46.0) % MCV (80.0-100.0) fL MCHC (31.0-37.0) g/dL RDW (11.5-15.5) % Plt Count (150-450) k/uL Neutrophils # (Manual) (1.3-7.7) k/uL Lymphocytes # (Manual) (1.0-4.8) k/uL Macrocytosis BUN (7-17) mg/dL Creatinine (0.52-1.04) mg/dL Glucose (74-99) mg/dL POC Glucose (mg/dL) 131 H (75-99) mg/dL Calcium (8.4-10.2) mg/dL Total Protein (6.3-8.2) g/dL Albumin (3.5-5.0) g/dL Stool Occult Blood (Negative) Crossmatch See Detail Assessment and Plan (1) Iron deficiency anemia due to chronic blood loss Narrative/Plan: 74-year-old female with a history of chronic anemia multifactorial secondary to chronic blood loss as well as multiple underlying chronic diseases and prior alcohol use who presented with melanotic stool and weakness. Patient has had multiple recent admissions for symptomatic anemia and was found to have a hemoglobin of 4.5 on presentation. She is reporting dark stool but has reported this chronically. She recently underwent EGD on 09/05/2019 with findings of mild portal hypertensive gastropathy, small nonbleeding varices and a hiatal hernia. She has previously had findings of angiectasia of the small bowel treated with coagulation therapy but did not have these on recent EGD. Last colonoscopy was in May 2017 which was within normal limits. Anemia is multifactorial with no recent GI bleeding noted cannot rule out a component of bleeding from a small b owel angiectasia, however bleeding likely secondary to varices which been noted to be small and not bleeding on recent endoscopies. Current Visit: No Status: Chronic Priority: Medium Code(s): D50.0 - IRON DEFICIENCY ANEMIA SECONDARY TO BLOOD LOSS (CHRONIC) SNOMED Code(s): 680419900 (2) Hx of esophageal varices Current Visit: Yes Status: Acute Code(s): Z87.19 - PERSONAL HISTORY OF OTHER DISEASES OF THE DIGESTIVE SYSTEM SNOMED Code(s): 27665821981137054 (3) Melena Current Visit: Yes Status: Acute Code(s): K92.1 - MELENA SNOMED Code(s): 0234193 (4) Liver cirrhosis Current Visit: No Status: Chronic Priority: Medium Code(s): K74.60 - UNSPECIFIED CIRRHOSIS OF LIVER SNOMED Code(s): 18819070 Plan: Supportive care Okay for liquid diet Continue to monitor hemoglobin and hematocrit Patient will need transfusion of PRBCs which have been ordered and are pending Have discussed repeat endoscopy with the patient after transfusion and when medically stable for which she agrees, timing of the procedure pending transfusion Continue Protonix therapy Hematology following the patient with IV iron ordered Continue propranolol Thank you for allowing us to participate in the care of the patient, we will continue to follow
[2019-09-15] MEDS: LEVOTHYROXINE 25 MCG TAB PO SCH (06:59)
[2019-09-15] MEDS: IPRATROPIUM-ALBUTEROL 3 ML NEB INHALATION PRN ×4 (07:41→21:05)
[2019-09-15] MEDS: SYMBICORT 160-4.5 MCG INHALER INHALATION SCH ×2 (07:42→21:06)
[2019-09-15] MEDS: MEMANTINE 10 MG TAB PO SCH ×2 (09:00→21:07)
[2019-09-15] MEDS ORDERED: NON FORMULARY DRUG (Omeprazole 40 MG) PO SCH (09:00)
[2019-09-15] MEDS: CYANOCOBALAMIN 1,000 MCG/ML 1 ML VIAL IM SCH (09:01)
[2019-09-15] MEDS: LISINOPRIL 20 MG TAB PO SCH (09:01)
[2019-09-15] MEDS: POTASSIUM CHLORIDE ER 20 MEQ TAB.ER PO SCH (09:01)
[2019-09-15] MEDS: MAGNESIUM OXIDE 400 MG TAB PO SCH (09:01)
[2019-09-15] MEDS: FUROSEMIDE 40 MG TAB PO SCH (09:01)
[2019-09-15] MEDS: ESCITALOPRAM 10 MG TAB PO SCH (09:01)
[2019-09-15] MEDS: PROPRANOLOL 10 MG TAB PO SCH ×3 (09:01→21:08)
[2019-09-15] MEDS: PRIMIDONE 25 MG TAB PO SCH (09:44)
[2019-09-15] MEDS: PANTOPRAZOLE 40 MG/10 ML VIAL IVP SCH ×2 (11:35→21:07)
[2019-09-15 12:47] LABS: % Iron Saturation 77.18 (12.00-45.00); Ferritin 688.6 ng/mL (10.0-291.0); Iron 159 ug/dL (50-170); Total Iron Binding Capacity 206 ug/dL (228-460)
[2019-09-15] MEDS ORDERED: PEG 3350-NA SULF,BICARB,CL/KCL 4,000 ML BOTTLE PO ONE (15:00)
[2019-09-15 15:05] LABS: Vitamin B12 >4000.0 pg/mL (211-911)
[2019-09-15] MEDS ORDERED: BISACODYL 5 MG TABLET.DR PO STA (15:25)
--- NOTE | 2019-09-15 17:55 | P.CONS ---
History of Present Illness - Reason for Consult Consult date: 09/14/19 Severe Symptomatic Anemia Requesting physician: Torey Resendiz - Chief Complaint Symptomatic Anemia - History of Present Illness Mrs. Vale is a very pleasant female patient who was referred to Dr. Crane in 2014 because of anemia that was found on routine blood work. Patient had recently moved from [place] to [place]. 08/17/14 her CBC revealed a hemoglobin of 7.1 g/dl, MCV of 103, otherwise normal CBC, CMP was unremarkable. Workup revealed iron deficiency, esophageal varices. She received parenteral iron in the office, she has not followed up since 2014. 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 Patient was supposed to have 3 additional cycles of chemo but those were not given due to c/o SE, hematological toxicities and peripheral neuropathy. 2015 CT CAP showed no evidence of disease. Cirrhosis of the liver was noted incidentally with borderline splenomegaly. Again, patient has not been seen by Hem/Onc since 2014. She was seen last week for similiar complaints bleeding and anemia. Last admission with confusion. She complains of persistent dark stools and generalized weakness. Last admission she did have GI evalaution and bleeding was attributed to Varices. She denies abdominal pain, nausea, vomiting. On admission her hemoglobin 4.5, she is macrocytic mcv 107. Although obvious evidence of bleeding GI, and PRBC has been ordered. THis maybe delayed due to her multiple antibodies and therefore she has been admitted to ICU for close monitoring. Review of Systems A 14 point review of system assessed and completed and all negative except HPI, patient is however a poor historian. Past Medical History Past Medical History: Atrial Fibrillation, Cancer, Heart Failure, COPD, CVA/TIA, GERD/Reflux, GI Bleed, Hyperlipidemia, Hypertension, Osteoarthritis (OA) Additional Past Medical History / Comment(s): hx. uterine cancer, chemo 6 years ago, TIA several yrs. ago-forgetful, neuropathy feet & legs & hands, ANEMIA History of Any Multi-Drug Resistant Organisms: None Reported Past Surgical History: Hysterectomy, Tonsillectomy Additional Past Surgical History / Comment(s): COLONOSCOPY. EGD. BILAT CATARACTS REMOVED Past Anesthesia/Blood Transfusion Reactions: No Reported Reaction Past Psychological History: Anxiety, Depression Smoking Status: Current every day smoker Past Alcohol Use History: None Reported Past Drug Use History: None Reported - Past Family History Mother Family Medical History: Cancer Father History Unknown: Yes Family Medical History: Cancer Brother(s) Family Medical History: Cancer Medications and Allergies Home Medications Medication Instructions Recorded Confirmed Type Ferrous Sulfate [Feosol] 325 mg PO BID 10/29/16 09/14/19 History Donepezil [Aricept] 10 mg PO HS 11/07/17 09/14/19 History Levothyroxine Sodium [Synthroid] 25 mcg PO DAILY 11/07/17 09/14/19 History Omeprazole [PriLOSEC] 40 mg PO DAILY 11/07/17 09/14/19 History Cetirizine HCl [Zyrtec] 10 mg PO DAILY 01/14/19 09/14/19 History Escitalopram [Lexapro] 10 mg PO DAILY 01/14/19 09/14/19 History Memantine [Namenda] 10 mg PO BID 01/14/19 09/14/19 History Acetaminophen Tab [Tylenol] 650 mg PO Q6H PRN 05/01/19 09/14/19 History Ipratropium-Albuterol Nebulize 3 ml INHALATION RT-QID PRN 05/01/19 09/14/19 History [Duoneb 0.5 mg-3 mg/3 ml Soln] Baclofen 5 mg PO TID PRN 06/28/19 09/14/19 History SILVER sulfADIAZINE Cream 1 applic TOPICAL BID 06/28/19 09/14/19 History [Silvadene 1% Cream] rOPINIRole HCL [Requip] 0.25 mg PO HS 06/28/19 09/14/19 History Propranolol [Inderal] 10 mg PO TID #90 tab 06/30/19 09/14/19 Rx traMADol HCl [Ultram] 50 mg PO BID PRN 07/21/19 09/14/19 History Budesonide-Formot 160-4.5 Mcg 2 puff INHALATION RT-BID #1 inh 08/13/19 09/14/19 Rx [Symbicort 160-4.5 Mcg Inhaler] Lisinopril [Zestril] 20 mg PO DAILY #90 tab 08/13/19 09/14/19 Rx Nicotine 14Mg/24Hr Patch [Habitrol] 1 patch TRANSDERM DAILY #30 patch 08/13/19 09/14/19 Rx Potassium Chloride ER [K-Dur 20] 20 meq PO DAILY #30 tab 08/13/19 09/14/19 Rx Furosemide [Lasix] 20 mg PO HS 08/16/19 09/14/19 History Primidone [Mysoline] 25 mg PO Q24H #0 dose 09/07/19 09/14/19 Rx Apixaban [Eliquis Starter Pack See Taper PO DAILY 09/14/19 09/14/19 History (for VTE)] Furosemide [Lasix] 40 mg PO DAILY 09/14/19 09/14/19 History Lactulose [Cephulac] 20 gm PO BID PRN 09/14/19 09/14/19 History Magnesium Oxide [Magox 400] 400 mg PO DAILY 09/14/19 09/14/19 History Metolazone [Zaroxolyn] 2.5 mg PO DAILY 09/14/19 09/14/19 History Allergies Allergy/AdvReac Type Severity Reaction Status Date / Time No Known Allergies Allergy Verified 09/14/19 15:00 Physical Exam Vitals: Vital Signs Temp Pulse Resp BP Pulse Ox 09/14/19 15:15 67 12 120/38 96 09/14/19 15:00 96.8 F L 70 12 121/43 89 L 09/14/19 14:39 72 20 103/61 99 09/14/19 14:37 72 20 103/61 99 09/14/19 12:13 97.3 F L 81 20 136/71 99 Intake and Output 09/14/19 09/14/19 09/14/19 06:59 14:59 22:59 Intake Total 155 Balance 155 Intake: IV 155 Octreotide 500 mcg In 25 Sodium Chloride 0.9% 250 ml @ 50 MCG/HR 25 mls/hr IV .Q10H [facility] Rx#: [id number] Sodium Chloride 0.9% 1, 130 000 ml @ 150 mls/hr IV . Q6H40M [facility] Rx#:[id number] Other: # Voids 2 Weight 63.503 kg - Constitutional General appearance: Present: average body habitus, cooperative, no acute distress - EENT Eyes: Present: anicteric sclerae ENT: Present: hearing grossly normal - Respiratory Details: Respirations even and unlabored - Cardiovascular Details: Skin warm and dry - Musculoskeletal Musculoskeletal: Present: generalized weakness, strength equal bilaterally - Psychiatric Psychiatric: Present: A&O x's 3, appropriate affect, intact judgment & insight Results CBC & Chem 7: 09/15/19 04:18 09/15/19 04:18 Labs: Abnormal Lab Results - Last 24 Hours (Table) 09/14/19 09/14/19 09/14/19 Range/Units 12:33 12:33 12:36 WBC 10.8 H (3.8-10.6) k/uL RBC 1.41 L (3.80-5.40) m/uL Hgb 4.5 L* D (11.4-16.0) gm/dL Hct 15.2 L* (34.0-46.0) % MCV 107.9 H D (80.0-100.0) fL MCHC 29.8 L (31.0-37.0) g/dL RDW 23.3 H (11.5-15.5) % Plt Count 118 L D (150-450) k/uL Neutrophils # (Manual) 9.50 H (1.3-7.7) k/uL Lymphocytes # (Manual) 0.86 L (1.0-4.8) k/uL Macrocytosis Marked A BUN 36 H (7-17) mg/dL Creatinine 1.53 H (0.52-1.04) mg/dL Glucose 211 H (74-99) mg/dL POC Glucose (mg/dL) (75-99) mg/dL Calcium 7.8 L (8.4-10.2) mg/dL Total Protein 5.8 L (6.3-8.2) g/dL Albumin 2.2 L (3.5-5.0) g/dL Stool Occult Blood Positive H (Negative) 09/14/19 Range/Units 15:09 WBC (3.8-10.6) k/uL RBC (3.80-5.40) m/uL Hgb (11.4-16.0) gm/dL Hct (34.0-46.0) % MCV (80.0-100.0) fL MCHC (31.0-37.0) g/dL RDW (11.5-15.5) % Plt Count (150-450) k/uL Neutrophils # (Manual) (1.3-7.7) k/uL Lymphocytes # (Manual) (1.0-4.8) k/uL Macrocytosis BUN (7-17) mg/dL Creatinine (0.52-1.04) mg/dL Glucose (74-99) mg/dL POC Glucose (mg/dL) 131 H (75-99) mg/dL Calcium (8.4-10.2) mg/dL Total Protein (6.3-8.2) g/dL Albumin (3.5-5.0) g/dL Stool Occult Blood (Negative) CT scan - abdomen: report reviewed CT scan - chest: report reviewed CT scan - pelvis: report reviewed Assessment and Plan (1) Macrocytic anemia with vitamin B12 deficiency Current Visit: Yes Status: Acute Code(s): D51.9 - VITAMIN B12 DEFICIENCY ANEMIA, UNSPECIFIED SNOMED Code(s): 37073221 (2) Esophageal varices determined by endoscopy Current Visit: No Status: Chronic Priority: Medium Code(s): I85.00 - ESOPHAGEAL VARICES WITHOUT BLEEDING SNOMED Code(s): 84582388 (3) Iron deficiency anemia due to chronic blood loss Current Visit: No Status: Chronic Priority: Medium Code(s): D50.0 - IRON DEFICIENCY ANEMIA SECONDARY TO BLOOD LOSS (CHRONIC) SNOMED Code(s): 335942608 (4) Liver cirrhosis Current Visit: No Status: Chronic Priority: Medium Code(s): K74.60 - UNSPECIFIED CIRRHOSIS OF LIVER SNOMED Code(s): 53425380 Plan: Assessment and Recommendations: 1. Severe Symptomatic Macrocytic Anemia: Secondary to Acute on Chronic GI Blood Loss - Recent Varices Identified, GI is following - Component of B12 deficiency as well, elevated MMA. Therefore will initiate B12 with expected delay in PRBC due to multiple antibodies - IV Iron x1 while waiting on PRBC 2. Renal Insufficiency: - Appears to run baseline Creat 1.2-1.6 when trended back to December 2018 3. Liver Cirrhosis: - Noted on prior CT abdomen - Monitor liver function 4. Recent Pneumonia/Fluid Overload: - Pulmonary is following - May require diuretics after fluids and transfusions - Recommend Baseline Chest Xray this admission 5. Esophageal Varices: - GI Following physician Attest: I have completed the full history and physical and agree with above dictation, dictated as a scribe
[2019-09-15 18:11] LABS: Anisocytosis Moderate; HCT 25.5 % (34.0-46.0); Hypochromasia Marked; MCH 32.5 pg (25.0-35.0); MCHC 30.9 g/dL (31.0-37.0); Macrocytosis Marked; Mean Platelet Volume 11.9; Platelet Count 100 k/uL (150-450); Poikilocytosis Moderate; RBC 2.43 m/uL (3.80-5.40); RDW 22.7 % (11.5-15.5); WBC 10.6 k/uL (3.8-10.6)
[2019-09-15 18:34] LABS: HGB 7.9 gm/dL (11.4-16.0)
[2019-09-15 18:43] LABS: Eosinophils # (M) 0.11 k/uL (0-0.7); Lymphocytes # (M) 0.53 k/uL (1.0-4.8); Monocytes # (M) 0.85 k/uL (0-1.0); Neutrophils # (M) 9.12 k/uL (1.3-7.7); Neutrophils % (M) 86 %; Nucleated Red Blood Cells 0 /100 WBC (0-0); Total Cells Counted 100
[2019-09-15 18:44] LABS: Polychromasia Present
--- NOTE | 2019-09-15 20:05 | P.PN ---
Subjective Progress Note Date: 09/15/19 Principal diagnosis: Decompensated alcoholic cirrhosis, esophageal varices, iron deficiency anemia due to chronic blood loss with current iron studies improved on iron therapy Patient is seen lying in bed with no acute complaints. She has received 2 units of packed red blood cells. No signs or symptoms of GI bleeding today. Objective - Vital Signs Vital signs: Vital Signs Temp 98.0 F 09/15/19 11:42 Pulse 59 L 09/15/19 11:42 Resp 16 09/15/19 11:42 BP 112/44 09/15/19 11:42 Pulse Ox 95 09/15/19 11:42 Intake & Output 09/14/19 09/15/19 09/15/19 18:59 06:59 18:59 Intake Total 855 850 360 Output Total 700 1725 595 Balance 155 -875 -235 Weight 63.503 kg 74.2 kg Intake: IV 855 850 50 Octreotide 500 mcg In 125 150 Sodium Chloride 0.9% 250 ml @ 50 MCG/HR 25 mls/hr IV .Q10H [facility] Rx#: [id number] Sodium Chloride 0.9% 1, 730 150 000 ml @ 150 mls/hr IV . Q6H40M [facility] Rx#:[id number] Sodium Chloride 0.9% 1, 550 50 000 ml @ 50 mls/hr IV . Q20H [facility] Rx#:[id number] Blood Product 310 Rc As-1 Unit 0 [id number] Rc As-1 Unit 310 [id number] Output: Urine 700 1725 595 Other: Voiding Method Incontinent Indwelling Catheter Indwelling Catheter Indwelling Catheter # Voids 2 - Exam On physical examination, patient appears comfortable in no apparent distress. HEAD: Normocephalic, atraumatic. EYES: No scleral icterus. No conjunctival injection. MOUTH: No lesions, tongue midline. NECK: Trachea midline, no gross abnormalities. CHEST: Decreased air entry in all lung [place]. ABDOMEN: Soft, obese. Bowel sounds are positive. No organomegaly. No guarding or rigidity. EXTREMITIES: No pedal edema. SKIN: No rashes, no jaundice. NEUROLOGIC: Alert and oriented x3. No focal deficits. - Labs CBC & Chem 7: 09/15/19 16:41 09/15/19 04:18 Labs: Abnormal Lab Results - Last 24 Hours (Table) 09/14/19 09/14/19 09/14/19 Range/Units 12:33 12:33 12:36 WBC 10.8 H (3.8-10.6) k/uL RBC 1.41 L (3.80-5.40) m/uL Hgb 4.5 L* D (11.4-16.0) gm/dL Hct 15.2 L* (34.0-46.0) % MCV 107.9 H D (80.0-100.0) fL MCHC 29.8 L (31.0-37.0) g/dL RDW 23.3 H (11.5-15.5) % Plt Count 118 L D (150-450) k/uL Neutrophils # (Manual) 9.50 H (1.3-7.7) k/uL Lymphocytes # (Manual) 0.86 L (1.0-4.8) k/uL Macrocytosis Marked A Retic Count (0.5-2.0) % PT (9.0-12.0) sec INR (<1.2) APTT (22.0-30.0) sec Chloride (98-107) mmol/L BUN 36 H (7-17) mg/dL Creatinine 1.53 H (0.52-1.04) mg/dL Glucose 211 H (74-99) mg/dL POC Glucose (mg/dL) (75-99) mg/dL Calcium 7.8 L (8.4-10.2) mg/dL Total Protein 5.8 L (6.3-8.2) g/dL Albumin 2.2 L (3.5-5.0) g/dL Stool Occult Blood Positive H (Negative) Crossmatch 09/14/19 09/14/19 09/14/19 Range/Units 14:21 15:09 18:22 WBC 11.0 H (3.8-10.6) k/uL RBC 1.45 L (3.80-5.40) m/uL Hgb 4.6 L* (11.4-16.0) gm/dL Hct 16.0 L* (34.0-46.0) % MCV 110.3 H (80.0-100.0) fL MCHC 28.8 L (31.0-37.0) g/dL RDW 23.4 H (11.5-15.5) % Plt Count 107 L (150-450) k/uL Neutrophils # (Manual) (1.3-7.7) k/uL Lymphocytes # (Manual) (1.0-4.8) k/uL Macrocytosis Marked A Retic Count (0.5-2.0) % PT (9.0-12.0) sec INR (<1.2) APTT (22.0-30.0) sec Chloride (98-107) mmol/L BUN (7-17) mg/dL Creatinine (0.52-1.04) mg/dL Glucose (74-99) mg/dL POC Glucose (mg/dL) 131 H (75-99) mg/dL Calcium (8.4-10.2) mg/dL Total Protein (6.3-8.2) g/dL Albumin (3.5-5.0) g/dL Stool Occult Blood (Negative) Crossmatch See Detail 09/15/19 09/15/19 09/15/19 Range/Units 04:18 04:18 04:18 WBC (3.8-10.6) k/uL RBC 1.23 L (3.80-5.40) m/uL Hgb 4.0 L* (11.4-16.0) gm/dL Hct 13.9 L* (34.0-46.0) % MCV 112.6 H (80.0-100.0) fL MCHC 29.0 L (31.0-37.0) g/dL RDW 23.5 H (11.5-15.5) % Plt Count 89 L (150-450) k/uL Neutrophils # (Manual) 7.89 H (1.3-7.7) k/uL Lymphocytes # (Manual) 0.33 L (1.0-4.8) k/uL Macrocytosis Marked A Retic Count 9.8 H (0.5-2.0) % PT 15.1 H (9.0-12.0) sec INR 1.5 H (<1.2) APTT 37.7 H (22.0-30.0) sec Chloride 109 H (98-107) mmol/L BUN 33 H (7-17) mg/dL Creatinine 1.38 H (0.52-1.04) mg/dL Glucose 102 H (74-99) mg/dL POC Glucose (mg/dL) (75-99) mg/dL Calcium 7.5 L (8.4-10.2) mg/dL Total Protein (6.3-8.2) g/dL Albumin (3.5-5.0) g/dL Stool Occult Blood (Negative) Crossmatch Assessment and Plan (1) Iron deficiency anemia due to chronic blood loss Narrative/Plan: 74-year-old female with a history of chronic anemia multifactorial secondary to chronic blood loss as well as multiple underlying chronic diseases and prior alcohol use who presented with melanotic stool and weakness. Patient has had multiple recent admissions for symptomatic anemia and was found to have a hemoglobin of 4.5 on presentation. She is reporting dark stool but has reported this chronically. She recently underwent EGD on 09/05/2019 with findings of mild portal hypertensive gastropathy, small nonbleeding varices and a hiatal hernia. She has previously had findings of angiectasia of the small bowel treated with coagulation therapy but did not have these on recent EGD. Last colonoscopy was in May 2017 which was within normal limits. Anemia is multifactorial with no recent GI bleeding noted cannot rule out a component of bleeding from a small bowel angiectasia, however bleeding likely secondary to varices which been noted to be small and not bleeding on recent endoscopies. Current Visit: No Status: Chronic Priority: Medium Code(s): D50.0 - IRON DEFICIENCY ANEMIA SECONDARY TO BLOOD LOSS (CHRONIC) SNOMED Code(s): 966551880 (2) Hx of esophageal varices Current Visit: Yes Status: Acute Code(s): Z87.19 - PERSONAL HISTORY OF OTHER DISEASES OF THE DIGESTIVE SYSTEM SNOMED Code(s): 86641817937079189 (3) Melena Current Visit: Yes Status: Acute Code(s): K92.1 - MELENA SNOMED Code(s): 4921954 (4) Liver cirrhosis Current Visit: No Status: Chronic Priority: Medium Code(s): K74.60 - UNSPECIFIED CIRRHOSIS OF LIVER SNOMED Code(s): 86420851 Plan: Supportive care Okay for liquid diet Continue to monitor hemoglobin and hematocrit CBC with improved hemoglobin after 2 units of PRBCs Nothing by mouth after midnight Plan for repeat endoscopic evaluation tomorrow Continue Protonix therapy Hematology following the patient Continue propranolol Thank you for allowing us to participate in the care of the patient, we will continue to follow
[2019-09-15] MEDS: DONEPEZIL 10 MG TAB PO SCH (21:08)
[2019-09-15] MEDS: FUROSEMIDE 20 MG TAB PO SCH (21:08)
--- NOTE | 2019-09-15 22:52 | PN ---
PROGRESS NOTE Patient with decompensated alcoholic cirrhosis, esophageal varices, iron-deficiency anemia, chronic blood loss anemia with severe anemia and hemoglobin of 4. Two units of blood was given today. She remains pale, cachectic. She has 2 to 3+ pedal edema. GI: Soft. CARDIOVASCULAR: S1, S2. LUNGS: Clear. Temperature 98, pulse 59, respiratory rate 16 to 18, blood pressure 112/44, oxygen 94. BUN is 33, creatinine 1.38. Patient remained on aztreonam here. Had colonoscopy in May of 2017 that was normal. secondary to varices. Continue to monitor hemoglobin. Cirrhosis: Continue with lactulose. Hepatic encephalopathy: Liquid diet. Monitor hemoglobins. Two units of blood. Repeat endoscopy in the morning. Protonix. Possibly do a RBC tagged red blood cell scan, depending on hemoglobin. Continue propranolol for blood pressure. ICU time 30 minutes. MMODL / IJN: [id number] /
[2019-09-16] MEDS: SODIUM CHLORIDE 0.9% 1,000 ML IV SCH (01:10)
[2019-09-16 04:49] LABS: Anisocytosis Moderate; HCT 22.4 % (34.0-46.0); HGB 7.2 gm/dL (11.4-16.0); Hypochromasia Marked; MCH 33.1 pg (25.0-35.0); MCV 103.5 fL (80.0-100.0); Macrocytosis Marked; Mean Platelet Volume 11.1; Poikilocytosis Moderate; RBC 2.17 m/uL (3.80-5.40); WBC 8.9 k/uL (3.8-10.6)
[2019-09-16 04:57] LABS: Albumin 2.1 g/dL (3.5-5.0); Calcium 7.4 mg/dL (8.4-10.2); Potassium 3.3 mmol/L (3.5-5.1); Total Bilirubin 1.6 mg/dL (0.2-1.3); Total Protein 5.9 g/dL (6.3-8.2)
[2019-09-16 05:31] LABS: Eosinophils # (M) 0.09 k/uL (0-0.7); Lymphocytes # (M) 0.89 k/uL (1.0-4.8); Monocytes # (M) 0.62 k/uL (0-1.0); Neutrophils % (M) 82 %; Nucleated Red Blood Cells 0 /100 WBC (0-0); Platelet Count 84 k/uL (150-450); Total Cells Counted 100
[2019-09-16 05:33] LABS: Polychromasia Present
[2019-09-16] MEDS ORDERED: Potassium Replacement Protocol 1 EACH MISC MISCELLANE PRN (06:42)
[2019-09-16] MEDS: LEVOTHYROXINE 25 MCG TAB PO SCH (06:58)
[2019-09-16] MEDS: POTASSIUM CHLORIDE ER 20 MEQ TAB.ER PO SCH ×2 (06:58→08:29)
[2019-09-16] MEDS: PROPRANOLOL 10 MG TAB PO SCH ×3 (08:29→20:55)
[2019-09-16] MEDS: CYANOCOBALAMIN 1,000 MCG/ML 1 ML VIAL IM SCH (08:29)
[2019-09-16] MEDS: PANTOPRAZOLE 40 MG/10 ML VIAL IVP SCH ×2 (08:29→20:46)
[2019-09-16] MEDS: FUROSEMIDE 40 MG TAB PO SCH (08:29)
[2019-09-16] MEDS: LISINOPRIL 20 MG TAB PO SCH (08:29)
[2019-09-16] MEDS: MAGNESIUM OXIDE 400 MG TAB PO SCH (08:29)
[2019-09-16] MEDS: ESCITALOPRAM 10 MG TAB PO SCH (08:30)
[2019-09-16] MEDS: MEMANTINE 10 MG TAB PO SCH ×2 (08:30→20:55)
[2019-09-16] MEDS: SYMBICORT 160-4.5 MCG INHALER INHALATION SCH ×2 (08:36→20:16)
[2019-09-16] MEDS: IPRATROPIUM-ALBUTEROL 3 ML NEB INHALATION PRN ×3 (08:36→15:59)
[2019-09-16] MEDS: PRIMIDONE 25 MG TAB PO SCH (09:02)
--- NOTE | 2019-09-16 11:01 | P.PN ---
Subjective Progress Note Date: 09/16/19 Principal diagnosis: Likely upper GI bleed presented as a lower GI bleed, has been on Eliquis Severe anemia blood loss likely chronic Severe hypokalemia Advanced COPD not in exacerbation Chronic atrial fibrillation paroxysmal, currently in sinus rhythm Diastolic heart failure History of prior CVA TIA Dyslipidemia and hypertension hypertensive cardiovascular disease 09/16/2019, patient seen eval is awake and alert is stable and stable since yesterday was noted no evidence of active GI bleeding has been seen, patient is nothing by mouth. EGD and colonoscopy later on today, labs are reviewed with the patient as well will give extra milliequivalents of potassium, if patient remains stable then can be moved out to [facility] or [facility] with remote telemetry Objective - Vital Signs Vital signs: Vital Signs Temp 97.6 F 09/16/19 08:00 Pulse 51 L 09/16/19 10:00 Resp 14 09/16/19 10:00 BP 134/50 09/16/19 10:00 Pulse Ox 95 09/16/19 10:00 Intake & Output 09/15/19 09/16/19 09/16/19 18:59 06:59 18:59 Intake Total 770 500 200 Output Total 1848 910 375 Balance -1078 -410 -175 Weight 74.2 kg Intake: IV 150 500 200 Sodium Chloride 0.9% 1, 150 500 200 000 ml @ 50 mls/hr IV . Q20H [facility] Rx#:[id number] Blood Product 620 Rc As-1 Unit 310 [id number] Rc As-1 Unit 310 [id number] Output: Urine 1848 910 375 Other: Voiding Method Indwelling Catheter Indwelling Catheter Indwelling Catheter # Bowel Movements 1 1 - Exam - Constitutional General appearance: average body habitus, cooperative, disheveled - EENT Eyes: EOMI, PERRLA ENT: hard of hearing Ears: bilateral: normal - Neck Neck: normal ROM Carotids: bilateral: upstroke normal Thyroid: bilateral: normal size - Respiratory Respiratory: bilateral: CTA - Cardiovascular Rhythm: regular Heart sounds: normal: S1, S2 - Gastrointestinal General gastrointestinal: normal bowel sounds - Integumentary Integumentary: normal turgor - Neurologic Neurologic: CNII-XII intact - Musculoskeletal Musculoskeletal: gait normal, generalized weakness, strength equal bilaterally - Psychiatric Psychiatric: A&O x's 3, appropriate affect, intact judgment & insight - Labs CBC & Chem 7: 09/16/19 03:54 09/16/19 03:54 Labs: Abnormal Lab Results - Last 24 Hours (Table) 09/14/19 09/15/19 09/15/19 Range/Units 14:21 04:18 04:18 RBC (3.80-5.40) m/uL Hgb (11.4-16.0) gm/dL Hct (34.0-46.0) % MCV (80.0-100.0) fL MCHC (31.0-37.0) g/dL RDW (11.5-15.5) % Plt Count (150-450) k/uL Neutrophils # (Manual) (1.3-7.7) k/uL Lymphocytes # (Manual) (1.0-4.8) k/uL Macrocytosis Potassium (3.5-5.1) mmol/L BUN (7-17) mg/dL Creatinine (0.52-1.04) mg/dL Glucose (74-99) mg/dL Calcium (8.4-10.2) mg/dL TIBC 206 L (228-460) ug/dL % Saturation 77.18 H (12.00-45.00) Erythropoietin 549.54 H (2.00-30.00) mIU/mL Ferritin 688.6 H (10.0-291.0) ng/mL Total Bilirubin (0.2-1.3) mg/dL Total Protein (6.3-8.2) g/dL Albumin (3.5-5.0) g/dL Vitamin B12 >4000.0 H (211-911) pg/mL Crossmatch See Detail 09/15/19 09/16/19 09/16/19 Range/Units 16:41 03:54 03:54 RBC 2.43 L 2.17 L (3.80-5.40) m/uL Hgb 7.9 L D 7.2 L (11.4-16.0) gm/dL Hct 25.5 L 22.4 L (34.0-46.0) % MCV 105.0 H D 103.5 H (80.0-100.0) fL MCHC 30.9 L (31.0-37.0) g/dL RDW 22.7 H 23.0 H (11.5-15.5) % Plt Count 100 L 84 L (150-450) k/uL Neutrophils # (Manual) 9.12 H (1.3-7.7) k/uL Lymphocytes # (Manual) 0.53 L 0.89 L (1.0-4.8) k/uL Macrocytosis Marked A Marked A Potassium 3.3 L (3.5-5.1) mmol/L BUN 27 H (7-17) mg/dL Creatinine 1.40 H (0.52-1.04) mg/dL Glucose 106 H (74-99) mg/dL Calcium 7.4 L (8.4-10.2) mg/dL TIBC (228-460) ug/dL % Saturation (12.00-45.00) Erythropoietin (2.00-30.00) mIU/mL Ferritin (10.0-291.0) ng/mL Total Bilirubin 1.6 H (0.2-1.3) mg/dL Total Protein 5.9 L (6.3-8.2) g/dL Albumin 2.1 L (3.5-5.0) g/dL Vitamin B12 (211-911) pg/mL Crossmatch Assessment and Plan Assessment: Likely upper GI bleed presented as a lower GI bleed, has been on Eliquis Severe anemia blood loss likely chronic Severe hypokalemia Advanced COPD not in exacerbation Chronic atrial fibrillation paroxysmal, currently in sinus rhythm Diastolic heart failure History of prior CVA TIA Dyslipidemia and hypertension hypertensive cardiovascular disease Plan: Transfusion of 4 unit packed RBC Replace potassium IV proton pump inhibitors Monitor hemoglobin closely We will check another level tomorrow if remains stable can be moved out of the ICU to selective care or Med[facility]urg with remote telemetry Continue to hold anticoagulation for another 24-48 hours until cleared from GI services COPD is stable can use bronchodilator on an as-needed basis Endoscopy later on today Further recommendations pending plan of care as per clinical response of the pat ient Time with Patient: Greater than 30
--- NOTE | 2019-09-16 12:44 | P.PN ---
Subjective Progress Note Date: 09/16/19 Principal diagnosis: Severe symptomatic anemia gi blood loss Objective - Vital Signs Vital signs: Vital Signs Temp 97.6 F 09/16/19 12:00 Pulse 51 L 09/16/19 12:11 Resp 16 09/16/19 12:00 BP 127/48 09/16/19 12:00 Pulse Ox 91 L 09/16/19 12:00 Intake & Output 09/15/19 09/16/19 09/16/19 18:59 06:59 18:59 Intake Total 770 500 300 Output Total 1848 910 800 Balance -1078 -410 -500 Weight 74.2 kg Intake: IV 150 500 300 Sodium Chloride 0.9% 1, 150 500 300 000 ml @ 50 mls/hr IV . Q20H [facility] Rx#:[id number] Blood Product 620 Rc As-1 Unit 310 [id number] Rc As-1 Unit 310 [id number] Output: Urine 1840 910 800 Other: Voiding Method Indwelling Catheter Indwelling Catheter Indwelling Catheter # Bowel Movements 1 1 - Labs CBC & Chem 7: 09/16/19 12:49 09/16/19 03:54 Labs: Abnormal Lab Results - Last 24 Hours (Table) 09/14/19 09/15/19 09/15/19 Range/Units 14:21 04:18 04:18 RBC (3.80-5.40) m/uL Hgb (11.4-16.0) gm/dL Hct (34.0-46.0) % MCV (80.0-100.0) fL MCHC (31.0-37.0) g/dL RDW (11.5-15.5) % Plt Count (150-450) k/uL Neutrophils # (Manual) (1.3-7.7) k/uL Lymphocytes # (Manual) (1.0-4.8) k/uL Macrocytosis Potassium (3.5-5.1) mmol/L BUN (7-17) mg/dL Creatinine (0.52-1.04) mg/dL Glucose (74-99) mg/dL Calcium (8.4-10.2) mg/dL TIBC 206 L (228-460) ug/dL % Saturation 77.18 H (12.00-45.00) Erythropoietin 549.54 H (2.00-30.00) mIU/mL Ferritin 688.6 H (10.0-291.0) ng/mL Total Bilirubin (0.2-1.3) mg/dL Total Protein (6.3-8.2) g/dL Albumin (3.5-5.0) g/dL Vitamin B12 >4000.0 H (211-911) pg/mL Crossmatch See Detail 09/15/19 09/16/19 09/16/19 Range/Units 16:41 03:54 03:54 RBC 2.43 L 2.17 L (3.80-5.40) m/uL Hgb 7.9 L D 7.2 L (11.4-16.0) gm/dL Hct 25.5 L 22.4 L (34.0-46.0) % MCV 105.0 H D 103.5 H (80.0-100.0) fL MCHC 30.9 L (31.0-37.0) g/dL RDW 22.7 H 23.0 H (11.5-15.5) % Plt Count 100 L 84 L (150-450) k/uL Neutrophils # (Manual) 9.12 H (1.3-7.7) k/uL Lymphocytes # (Manual) 0.53 L 0.89 L (1.0-4.8) k/uL Macrocytosis Marked A Marked A Potassium 3.3 L (3.5-5.1) mmol/L BUN 27 H (7-17) mg/dL Creatinine 1.40 H (0.52-1.04) mg/dL Glucose 106 H (74-99) mg/dL Calcium 7.4 L (8.4-10.2) mg/dL TIBC (228-460) ug/dL % Saturation (12.00-45.00) Erythropoietin (2.00-30.00) mIU/mL Ferritin (10.0-291.0) ng/mL Total Bilirubin 1.6 H (0.2-1.3) mg/dL Total Protein 5.9 L (6.3-8.2) g/dL Albumin 2.1 L (3.5-5.0) g/dL Vitamin B12 (211-911) pg/mL Crossmatch Assessment and Plan (1) Macrocytic anemia with vitamin B12 deficiency Current Visit: Yes Status: Acute Code(s): D51.9 - VITAMIN B12 DEFICIENCY ANEMIA, UNSPECIFIED SNOMED Code(s): 47627493 (2) Esophageal varices determined by endoscopy Current Visit: No Status: Chronic Priority: Medium Code(s): I85.00 - ESOPHAGEAL VARICES WITHOUT BLEEDING SNOMED Code(s): 85905492 (3) Iron deficiency anemia due to chronic blood loss Current Visit: No Status: Chronic Priority: Medium Code(s): D50.0 - IRON DEFICIENCY ANEMIA SECONDARY TO BLOOD LOSS (CHRONIC) SNOMED Code(s): 751095741 (4) Liver cirrhosis Current Visit: No Status: Chronic Priority: Medium Code(s): K74.60 - UNSPECIFIED CIRRHOSIS OF LIVER SNOMED Code(s): 75236511 Plan: Assessment and Recommendations: 1. Severe Symptomatic Macrocytic Anemia: Secondary to Acute on Chronic GI Blood Loss with multifactorial compoenents of chronic liver disease and chronic inflammation - Recent Varices Identified, GI is following - No evidence of monoclonal proteins 2. Renal Insufficiency: - Appears to run baseline Creat 1.2-1.6 when trended back to December 2018 - Creat 1.4 today, erythropoetin stable 3. Liver Cirrhosis: - Noted on prior CT abdomen - Monitor liver function 4. Recent Pneumonia/Fluid Overload: - Pulmonary is following - May require diuretics after fluids and transfusions 5. Esophageal Varices: - GI Following Thrombocytopenia: - Remains in safe range greater than 50K - Monitor closely along with coags Plan: - EGD and Colonoscopy today - Continue Serial CBC - Transfuse less than 7 - May follow as outpatient for close cbc monitoring and likely need for parental intermittent iron infusions
[2019-09-16 13:08] LABS: Anisocytosis Moderate; HCT 24.1 % (34.0-46.0); HGB 7.6 gm/dL (11.4-16.0); Hypochromasia Marked; MCH 33.1 pg (25.0-35.0); MCHC 31.6 g/dL (31.0-37.0); MCV 104.8 fL (80.0-100.0); Macrocytosis Marked; Mean Platelet Volume 11.2; Poikilocytosis Moderate; RDW 23.5 % (11.5-15.5); WBC 9.3 k/uL (3.8-10.6)
[2019-09-16 13:14] LABS: Platelet Count 86 k/uL (150-450)
[2019-09-16] MEDS ORDERED: fentaNYL (PF) 50 MCG/ML 2 ML AMP ONE (13:18)
[2019-09-16] MEDS ORDERED: LIDOCAINE 1% INJ 10MG/ML (20 ML MDV) ONE (13:18)
[2019-09-16] MEDS ORDERED: IV FLUID CONTINUATION 1,000 ML IV ONE (13:18)
[2019-09-16] MEDS ORDERED: PROPOFOL 10 MG/ML 20 ML VIAL IV ONE (13:18)
[2019-09-16] MEDS ORDERED: MIDAZOLAM 2 MG/2 ML VIAL ONE (13:18)
[2019-09-16 13:42] LABS: Lymphocytes # (M) 0.84 k/uL (1.0-4.8); Monocytes # (M) 0.56 k/uL (0-1.0); Neutrophils # (M) 7.91 k/uL (1.3-7.7); Neutrophils % (M) 85 %; Nucleated Red Blood Cells 0 /100 WBC (0-0); Polychromasia Present; Total Cells Counted 100
[2019-09-16] MEDS ORDERED: SODIUM CHLORIDE 0.9% 1,000 ML IV ONE (13:58)
--- NOTE | 2019-09-16 14:02 | P.PCN ---
Date of Procedure: 09/16/19 Description of Procedure: Brief history: 74-year-old female with medical history significant for chronic persistent anemia, decompensated alcoholic cirrhosis with varices, COPD, uterine cancer who presented to the hospital due to melena and weakness. The patient has been treated for anemia since 2014 and follows up with the hematology/oncology service. She has a known history of decompensated alcoholic cirrhosis and has previously undergone banding of varices. She's had numerous upper endoscopies including in June and on a recent admission on 09/05/2019 at which time the patient was found to have very small distal esophageal varices with mild portal hypertensive gastropathy and a small hiatal hernia with no active bleeding at that time. Patient was being treated for anemia at that time. She has also been noted to have angiectasia of the duodenum in the past treated with cold probe ablation therapy. Her last colonoscopy was in 05/2017 and within normal limits. Currently she is complaining of weakness and is being treated in the ICU. Her hemoglobin was only 4.5 on presentation with a WBC 10.8 and a platelet count of 118,000. Procedure performed: Esophagogastroduodenoscopy Colonoscopy with polypectomy Estimated blood loss: Minimal. Preoperative diagnosis: Severe symptomatic anemia Anesthesia: MAC Procedure: After informed consent was obtained from the patient was brought into the endoscopy unit and IV sedation was administered by anesthesia under continuous monitoring. Initially upper endoscopy was done. The Olympus GF 190 video endoscope was inserted into the mouth and esophagus intubated without any difficulty and was gradually advanced into the stomach and duodenum and carefully examined. The bulb and second part of the duodenum appeared normal. The scope was then withdrawn into the stomach adequately insufflated with air and upon careful examination the antrum and body, cardia and fundus appeared normal except for mild punctate erythema suggestive of mild portal hypertensive gastropathy . The scope was then withdrawn into the esophagus. The GE junction was located at 37 cm to the incisors, With a few small columns of varices in the distal esophagus without evidence of bleeding or high risk stigmata for bleeding. A small 1 cm hiatal hernia also noted. It appeared regular with no erythema erosions or ulcerations. Rest of the esophagus appeared normal. Patient tolerated the procedure well. At this time the patient continued to remain sedation. Initial digital rectal examination was normal. Olympus CF 190 video colonoscope was then inserted into the rectum and gradually advanced to the cecum without any difficulty. Careful examination was performed as the scope was gradually being withdrawn. The prep was excellent. The cecum, ascending colon, transverse colon, descending colon, sigmoid colon and rectum appeared normal, However it should be noted that the tissue was fairly friable. A diminutive 2 mm descending colon polyp was removed with cold snare polypectomy. Retroflexion was performed in the rectum and no lesions were noted, Low-grade internal hemorrhoids noted. Patient tolerated the procedure well. Impression: 1. No active bleeding, old blood or source of GI bleed noted on upper endoscopy or lower endoscopy. 2. A few columns of small and nonbleeding esophageal varices in the distal esophagus. Small hiatal hernia. Mild portal hypertensive gastropathy. 3. Diminutive 2 mm descending colon polyp. Low-grade internal hemorrhoids. Recommendations: Findings of this examination were discussed with the patient as well asThe medical team. We'll proceed to video capsule endoscopy. Okay for diet 4 hours after administration of video capsule. Continue to monitor hemoglobin and hematocrit and medical management.
[2019-09-16] MEDS ORDERED: LACTATED RINGERS 1,000 ML IV SCH (14:18)
[2019-09-16] MEDS ORDERED: SIMETHICONE 40 MG/0.6 ML DROPS 2,000 MG/30 ML BOTTLE PO ONE (15:15)
[2019-09-16 18:07] LABS: Glucose,Whole Blood 122 mg/dL (75-99)
[2019-09-16] MEDS: FUROSEMIDE 20 MG TAB PO SCH (20:46)
[2019-09-16] MEDS: DONEPEZIL 10 MG TAB PO SCH (20:55)
--- NOTE | 2019-09-16 21:57 | PN ---
PROGRESS NOTE The patient had an EGD and colonoscopy which found no evidence of bleeding. She is going to get a capsule small-bowel follow-through capsule swallow for bleeding, RBC tagged scan. Monitor hemoglobin. She is feeling better as her hemoglobin is up over 8 from 4. Lactulose is keeping ammonia lower. Remains in ICU. CARDIOVASCULAR: S1, S2. Lungs show rales, wheeze x4. PSYCH: Fair mood and affect. Giving appropriate answers. GI: Soft. HEMATOLOGY: Negative Homans. ASSESSMENT: 1. Gastrointestinal bleed. 2. Esophageal varices. 3. Acute on chronic anemia. 4. Severe anemia, status post 2 units of packed red blood cells. 5. Alcoholic liver cirrhosis. 6. Portal hypertension. 7. Metabolic encephalopathy. Continue current treatment. Monitor hemoglobin. Do RBC tagged, capsule swallow test. MMODL / IJN: [id number] /
[2019-09-17 05:51] LABS: Anisocytosis Moderate; HCT 23.5 % (34.0-46.0); HGB 7.5 gm/dL (11.4-16.0); Hypochromasia Marked; MCH 34.6 pg (25.0-35.0); Macrocytosis Marked; Platelet Count 85 k/uL (150-450); Poikilocytosis Moderate; RBC 2.17 m/uL (3.80-5.40); RDW 23.3 % (11.5-15.5); WBC 8.2 k/uL (3.8-10.6)
[2019-09-17 06:21] LABS: Calcium 7.4 mg/dL (8.4-10.2); Potassium 3.8 mmol/L (3.5-5.1); Total Bilirubin 1.1 mg/dL (0.2-1.3); Total Protein 5.7 g/dL (6.3-8.2)
[2019-09-17 06:35] LABS: Eosinophils # (M) 0.08 k/uL (0-0.7); Lymphocytes # (M) 0.41 k/uL (1.0-4.8); Monocytes # (M) 0.66 k/uL (0-1.0); Neutrophils # (M) 7.05 k/uL (1.3-7.7); Neutrophils % (M) 86 %; Nucleated Red Blood Cells 0 /100 WBC (0-0); Total Cells Counted 100
[2019-09-17 06:37] LABS: Polychromasia Present
[2019-09-17] MEDS: LEVOTHYROXINE 25 MCG TAB PO SCH (06:51)
[2019-09-17] MEDS: IPRATROPIUM-ALBUTEROL 3 ML NEB INHALATION PRN ×3 (07:58→19:57)
[2019-09-17] MEDS: SYMBICORT 160-4.5 MCG INHALER INHALATION SCH ×2 (07:59→20:01)
[2019-09-17] MEDS: PANTOPRAZOLE 40 MG/10 ML VIAL IVP SCH ×2 (08:49→19:39)
[2019-09-17] MEDS: ESCITALOPRAM 10 MG TAB PO SCH (08:50)
[2019-09-17] MEDS: MAGNESIUM OXIDE 400 MG TAB PO SCH (08:50)
[2019-09-17] MEDS: PROPRANOLOL 10 MG TAB PO SCH ×3 (08:50→22:21)
[2019-09-17] MEDS: PRIMIDONE 25 MG TAB PO SCH (08:50)
[2019-09-17] MEDS: MEMANTINE 10 MG TAB PO SCH ×2 (08:50→19:39)
[2019-09-17] MEDS: FUROSEMIDE 40 MG TAB PO SCH (08:50)
[2019-09-17] MEDS: POTASSIUM CHLORIDE ER 20 MEQ TAB.ER PO SCH (08:50)
[2019-09-17] MEDS: LISINOPRIL 20 MG TAB PO SCH (08:50)
[2019-09-17] MEDS: CYANOCOBALAMIN 1,000 MCG/ML 1 ML VIAL IM SCH (08:51)
[2019-09-17] MEDS: SODIUM CHLORIDE 0.9% 1,000 ML IV SCH (08:59)
[2019-09-17 15:12] VITALS: RESP 18
--- NOTE | 2019-09-17 17:39 | P.PN ---
Subjective Progress Note Date: 09/17/19 Principal diagnosis: Severe symptomatic anemia gi blood loss Status post egd and colonoscopy today. Patient hemoglobin is stable Objective - Vital Signs Vital signs: Vital Signs Temp 98.1 F 09/17/19 15:11 Pulse 55 L 09/17/19 15:51 Resp 18 09/17/19 15:11 BP 120/50 09/17/19 15:11 Pulse Ox 93 L 09/17/19 15:11 Intake & Output 09/16/19 09/17/19 09/17/19 18:59 06:59 18:59 Intake Total 1100 650 320 Output Total 1395 1000 300 Balance -295 -350 20 Weight 76.5 kg Intake: IV 1100 650 200 Sodium Chloride 0.9% 1, 500 650 200 000 ml @ 50 mls/hr IV . Q20H [facility] Rx#:[id number] Oral 120 Output: Urine 1395 1000 300 Other: Voiding Method Indwelling Catheter Indwelling Catheter Indwelling Catheter # Bowel Movements 1 1 - Exam - Constitutional General appearance: Present: average body habitus, cooperative, no acute distress - EENT Eyes: Present: anicteric sclerae ENT: Present: hearing grossly normal - Respiratory Details: Respirations even and unlabored - Cardiovascular Details: Skin warm and dry - Musculoskeletal Musculoskeletal: Present: generalized weakness, strength equal bilaterally - Psychiatric Psychiatric: Present: A&O x's 3, appropriate affect, intact judgment & insight - Labs CBC & Chem 7: 09/17/19 05:31 09/17/19 05:31 Labs: Abnormal Lab Results - Last 24 Hours (Table) 09/15/19 09/16/19 09/17/19 Range/Units 04:18 18:05 05:31 RBC (3.80-5.40) m/uL Hgb (11.4-16.0) gm/dL Hct (34.0-46.0) % MCV (80.0-100.0) fL RDW (11.5-15.5) % Plt Count (150-450) k/uL Lymphocytes # (Manual) (1.0-4.8) k/uL Macrocytosis Sodium 136 L (137-145) mmol/L BUN 25 H (7-17) mg/dL Creatinine 1.42 H (0.52-1.04) mg/dL Glucose 139 H (74-99) mg/dL POC Glucose (mg/dL) 122 H (75-99) mg/dL Calcium 7.4 L (8.4-10.2) mg/dL Total Protein 5.7 L (6.3-8.2) g/dL Albumin 2.0 L (3.5-5.0) g/dL Methylmalonic Acid 0.68 H (<0.40) umol/L 09/17/19 Range/Units 05:31 RBC 2.17 L (3.80-5.40) m/uL Hgb 7.5 L (11.4-16.0) gm/dL Hct 23.5 L (34.0-46.0) % MCV 108.0 H (80.0-100.0) fL RDW 23.3 H (11.5-15.5) % Plt Count 85 L (150-450) k/uL Lymphocytes # (Manual) 0.41 L (1.0-4.8) k/uL Macrocytosis Marked A Sodium (137-145) mmol/L BUN (7-17) mg/dL Creatinine (0.52-1.04) mg/dL Glucose (74-99) mg/dL POC Glucose (mg/dL) (75-99) mg/dL Calcium (8.4-10.2) mg/dL Total Protein (6.3-8.2) g/dL Albumin (3.5-5.0) g/dL Methylmalonic Acid (<0.40) umol/L Assessment and Plan (1) Macrocytic anemia with vitamin B12 deficiency Current Visit: Yes Status: Acute Code(s): D51.9 - VITAMIN B12 DEFICIENCY ANEMIA, UNSPECIFIED SNOMED Code(s): 19205728 (2) Esophageal varices determined by endoscopy Current Visit: No Status: Chronic Priority: Medium Code(s): I85.00 - ESOPHAGEAL VARICES WITHOUT BLEEDING SNOMED Code(s): 85660308 (3) Iron deficiency anemia due to chronic blood loss Current Visit: No Status: Chronic Priority: Medium Code(s): D50.0 - IRON DEFICIENCY ANEMIA SECONDARY TO BLOOD LOSS (CHRONIC) SNOMED Code(s): 564364529 (4) Liver cirrhosis Current Visit: No Status: Chronic Priority: Medium Code(s): K74.60 - UNSPECIFIED CIRRHOSIS OF LIVER SNOMED Code(s): 87103969 Plan: Assessment and Recommendations: 1. Severe Symptomatic Macrocytic Anemia: Secondary to Acute on Chronic GI Blood Loss with multifactorial compoenents of chronic liver disease and chronic inflammation - stable - Status Post EGD and COlonoscopy - Recent Varices Identified, GI is following - No evidence of monoclonal proteins 2. Renal Insufficiency: - Appears to run baseline Creat 1.2-1.6 when trended back to December 2018 3. Liver Cirrhosis: - Noted on prior CT abdomen - Monitor liver function 4. Recent Pneumonia/Fluid Overload: - Pulmonary is following - May require diuretics after fluids and transfusions 5. Esophageal Varices: - GI Following Thrombocytopenia: - Remains in safe range greater than 50K - Monitor closely along with coags Plan: - Continue Serial CBC - Transfuse less than 7 - May follow as outpatient for close cbc monitoring and likely need for parental intermittent iron infusions
[2019-09-17] MEDS: DONEPEZIL 10 MG TAB PO SCH (19:39)
[2019-09-17] MEDS: FUROSEMIDE 20 MG TAB PO SCH (19:39)
[2019-09-17] MEDS ORDERED: MELATONIN 5 MG TABLET PO SCH (21:00)
--- NOTE | 2019-09-17 22:47 | PN ---
PROGRESS NOTE This patient is a 74-year-old white female with GI bleeding. Discussed with the family on the phone. She will not be able to take any blood thinners any more she is at high risk for a stroke. Hemoglobin is stable at 7.5. Possible discharge home tomorrow, as I doubt they will take her to a rehab center due to renal case manager not being able to arrange it. Discussed this with the family. Possible discharge home in the next 24-48 hours if no further bleeding occurs. She will not take long-acting blood thinners, as mentioned above. MMODL / IJN: [id number] /
[2019-09-18 02:48] VITALS: TEMP 98
[2019-09-18] MEDS: SODIUM CHLORIDE 0.9% 1,000 ML IV SCH (03:32)
[2019-09-18] MEDS: LEVOTHYROXINE 25 MCG TAB PO SCH (05:22)
--- NOTE | 2019-09-18 05:56 | P.PN ---
Subjective Progress Note Date: 09/17/19 Principal diagnosis: Decompensated alcoholic cirrhosis, esophageal varices, iron deficiency anemia due to chronic blood loss Patient is seen lying in bed with no acute complaints. She has received 2 units of packed red blood cells with hemoglobin subsequently remained stable. She is denying any signs or symptoms of GI bleeding and tolerating a diet. Objective - Vital Signs Vital signs: Vital Signs Temp 97.9 F 09/17/19 08:00 Pulse 51 L 09/17/19 11:00 Resp 12 09/17/19 11:00 BP 125/51 09/17/19 11:00 Pulse Ox 92 L 09/17/19 11:00 Intake & Output 09/16/19 09/17/19 09/17/19 18:59 06:59 18:59 Intake Total 1100 650 320 Output Total 1395 1000 300 Balance -295 -350 20 Weight 76.5 kg Intake: IV 1100 650 200 Sodium Chloride 0.9% 1, 500 650 200 000 ml @ 50 mls/hr IV . Q20H [facility] Rx#:[id number] Oral 120 Output: Urine 1395 1000 300 Other: Voiding Method Indwelling Catheter Indwelling Catheter Indwelling Catheter # Bowel Movements 1 1 - Exam On physical examination, patient appears comfortable in no apparent distress. HEAD: Normocephalic, atraumatic. EYES: No scleral icterus. No conjunctival injection. MOUTH: No lesions, tongue midline. NECK: Trachea midline, no gross abnormalities. CHEST: Decreased air entry in all lung [place]. ABDOMEN: Soft, obese. Bowel sounds are positive. No organomegaly. No guarding or rigidity. EXTREMITIES: No pedal edema. SKIN: No rashes, no jaundice. NEUROLOGIC: Alert and oriented x3. No focal deficits. - Labs CBC & Chem 7: 09/17/19 05:31 09/17/19 05:31 Labs: Abnormal Lab Results - Last 24 Hours (Table) 09/15/19 09/16/19 09/17/19 Range/Units 04:18 18:05 05:31 RBC (3.80-5.40) m/uL Hgb (11.4-16.0) gm/dL Hct (34.0-46.0) % MCV (80.0-100.0) fL RDW (11.5-15.5) % Plt Count (150-450) k/uL Lymphocytes # (Manual) (1.0-4.8) k/uL Macrocytosis Sodium 136 L (137-145) mmol/L BUN 25 H (7-17) mg/dL Creatinine 1.42 H (0.52-1.04) mg/dL Glucose 139 H (74-99) mg/dL POC Glucose (mg/dL) 122 H (75-99) mg/dL Calcium 7.4 L (8.4-10.2) mg/dL Total Protein 5.7 L (6.3-8.2) g/dL Albumin 2.0 L (3.5-5.0) g/dL Methylmalonic Acid 0.68 H (<0.40) umol/L 09/17/19 Range/Units 05:31 RBC 2.17 L (3.80-5.40) m/uL Hgb 7.5 L (11.4-16.0) gm/dL Hct 23.5 L (34.0-46.0) % MCV 108.0 H (80.0-100.0) fL RDW 23.3 H (11.5-15.5) % Plt Count 85 L (150-450) k/uL Lymphocytes # (Manual) 0.41 L (1.0-4.8) k/uL Macrocytosis Marked A Sodium (137-145) mmol/L BUN (7-17) mg/dL Creatinine (0.52-1.04) mg/dL Glucose (74-99) mg/dL POC Glucose (mg/dL) (75-99) mg/dL Calcium (8.4-10.2) mg/dL Total Protein (6.3-8.2) g/dL Albumin (3.5-5.0) g/dL Methylmalonic Acid (<0.40) umol/L Assessment and Plan (1) Iron deficiency anemia due to chronic blood loss Narrative/Plan: 74-year-old female with a history of chronic anemia multifactorial secondary to chronic blood loss as well as multiple underlying chronic diseases and prior alcohol use who presented with melanotic stool and weakness. Patient has had multiple recent admissions for symptomatic anemia and was found to have a hemoglobin of 4.5 on presentation. She is reporting dark stool but has reported this chronically. She recently underwent EGD on 09/05/2019 with findings of mild portal hypertensive gastropathy, small nonbleeding varices and a hiatal hernia. She has previously had findings of angiectasia of the small bowel treated with coagulation therapy but did not have these on recent EGD. Last colonoscopy was in May 2017 which was within normal limits. Patient underwent repeat evaluation on current hospitalization with EGD significant for a few columns of small nonbleeding varices, mild portal hypertensive gastropathy and colonoscopy significant for diminutive polyp which was resected and low-grade internal hemorrhoids, video capsule endoscopy was also performed and significant for multiple nonbleeding small bowel angiectasia scattered throughout the bowel. Suspicion is for bleeding from these small bowel angiectasia as the cause of her recurrent hospitalizations for anemia. Current Visit: No Status: Chronic Priority: Medium Code(s): D50.0 - IRON DEFICIENCY ANEMIA SECONDARY TO BLOOD LOSS (CHRONIC) SNOMED Code(s): 019263118 (2) Hx of esophageal varices Current Visit: Yes Status: Acute Code(s): Z87.19 - PERSONAL HISTORY OF OTHER DISEASES OF THE DIGESTIVE SYSTEM SNOMED Code(s): 60560988547952527 (3) Melena Current Visit: Yes Status: Acute Code(s): K92.1 - MELENA SNOMED Code(s): 2401079 (4) Liver cirrhosis Current Visit: No Status: Chronic Priority: Medium Code(s): K74.60 - UNSPECIFIED CIRRHOSIS OF LIVER SNOMED Code(s): 41950708
[2019-09-18] MEDS: PANTOPRAZOLE 40 MG/10 ML VIAL IVP SCH (08:01)
[2019-09-18] MEDS: LISINOPRIL 20 MG TAB PO SCH (08:02)
[2019-09-18] MEDS: PROPRANOLOL 10 MG TAB PO SCH ×2 (08:02→16:32)
[2019-09-18] MEDS: POTASSIUM CHLORIDE ER 20 MEQ TAB.ER PO SCH (08:02)
[2019-09-18] MEDS: MEMANTINE 10 MG TAB PO SCH (08:02)
[2019-09-18] MEDS: CYANOCOBALAMIN 1,000 MCG/ML 1 ML VIAL IM SCH (08:02)
[2019-09-18] MEDS: ESCITALOPRAM 10 MG TAB PO SCH (08:02)
[2019-09-18] MEDS: MAGNESIUM OXIDE 400 MG TAB PO SCH (08:02)
[2019-09-18] MEDS: FUROSEMIDE 40 MG TAB PO SCH (08:02)
[2019-09-18] MEDS: PRIMIDONE 25 MG TAB PO SCH (08:03)
[2019-09-18] MEDS: SYMBICORT 160-4.5 MCG INHALER INHALATION SCH (08:26)
--- NOTE | 2019-09-18 11:02 | P.PN ---
Subjective Progress Note Date: 09/18/19 Principal diagnosis: Likely upper GI bleed presented as a lower GI bleed, has been on Eliquis Severe anemia blood loss likely chronic Severe hypokalemia Advanced COPD not in exacerbation Chronic atrial fibrillation paroxysmal, currently in sinus rhythm Diastolic heart failure History of prior CVA TIA Dyslipidemia and hypertension hypertensive cardiovascular disease 05/20/2019, patient seen jaylen examined during the rounds labs reviewed medications reviewed him a patient is afebrile with stable hemodynamics, saturation room air is 93%, remains afebrile, today's labs are pending labs from yesterday revealed stabl hemoglobin, respiratory status remains stable on bronch odilator patient is being monitored off of steroids and antibiotics 09/16/2019, patient seen jaylen is awake and alert is stable and stable since yesterday was noted no evidence of active GI bleeding has been seen, patient is nothing by mouth. EGD and colonoscopy later on today, labs are reviewed with the patient as well will give extra milliequivalents of potassium, if patient remains stable then can be moved out to [facility] care or [facility] with remote telemetry Objective - Vital Signs Vital signs: Vital Signs Temp 98 F 09/18/19 07:59 Pulse 57 L 09/18/19 07:59 Resp 18 09/18/19 07:59 BP 109/51 09/18/19 07:59 Pulse Ox 93 L 09/18/19 07:59 Intake & Output 09/17/19 09/18/19 09/18/19 18:59 06:59 18:59 Intake Total 520 240 Output Total 300 300 Balance 220 -300 240 Weight 71.5 kg Intake: IV 200 Sodium Chloride 0.9% 1, 200 000 ml @ 50 mls/hr IV . Q20H [facility] Rx#:[id number] Oral 320 240 Output: Urine 300 300 Other: Voiding Method Indwelling Catheter Indwelling Catheter # Voids 1 # Bowel Movements 1 - Exam - Constitutional General appearance: average body habitus, cooperative, disheveled - EENT Eyes: EOMI, PERRLA ENT: hard of hearing Ears: bilateral: normal - Neck Neck: normal ROM Carotids: bilateral: upstroke normal Thyroid: bilateral: normal size - Respiratory Respiratory: bilateral: CTA - Cardiovascular Rhythm: regular Heart sounds: normal: S1, S2 - Gastrointestinal General gastrointestinal: normal bowel sounds - Integumentary Integumentary: normal turgor - Neurologic Neurologic: CNII-XII intact - Musculoskeletal Musculoskeletal: gait normal, generalized weakness, strength equal bilaterally - Psychiatric Psychiatric: A&O x's 3, appropriate affect, intact judgment & insight - Labs CBC & Chem 7: 09/17/19 05:31 09/17/19 05:31 Assessment and Plan Assessment: Tubular adenoma colon Chronic intermittent GI bleed Severe anemia blood loss likely chronic Severe hypokalemia Advanced COPD not in exacerbation Chronic atrial fibrillation paroxysmal, currently in sinus rhythm Diastolic heart failure History of prior CVA TIA Dyslipidemia and hypertension hypertensive cardiovascular disease Plan: Status post Transfusion of 4 unit packed RBC Continue replacement of potassium IV proton pump inhibitors Monitor hemoglobin closely Defer reinitiation of anticoagulants per GI service Further recommendations pending plan of care as per clinical response of the patient Time with Patient: Greater than 30
--- NOTE | 2019-09-18 13:04 | P.PN ---
Subjective Progress Note Date: 09/18/19 Principal diagnosis: Severe symptomatic anemia gi blood loss Objective - Vital Signs Vital signs: Vital Signs Temp 98 F 09/18/19 07:59 Pulse 57 L 09/18/19 07:59 Resp 18 09/18/19 07:59 BP 109/51 09/18/19 07:59 Pulse Ox 93 L 09/18/19 07:59 Intake & Output 09/17/19 09/18/19 09/18/19 18:59 06:59 18:59 Intake Total 520 240 Output Total 300 300 Balance 220 -300 240 Weight 71.5 kg Intake: IV 200 Sodium Chloride 0.9% 1, 200 000 ml @ 50 mls/hr IV . Q20H [facility] Rx#:[id number] Oral 320 240 Output: Urine 300 300 Other: Voiding Method Indwelling Catheter Indwelling Catheter # Voids 1 2 # Bowel Movements 1 1 - Exam - Constitutional General appearance: Present: average body habitus, cooperative, no acute distress - EENT Eyes: Present: anicteric sclerae ENT: Present: hearing grossly normal - Respiratory Details: Respirations even and unlabored - Cardiovascular Details: Skin warm and dry - Musculoskeletal Musculoskeletal: Present: generalized weakness, strength equal bilaterally - Psychiatric Psychiatric: Present: A&O x's 3, appropriate affect, intact judgment & insight - Labs CBC & Chem 7: 09/17/19 05:31 09/17/19 05:31 Assessment and Plan (1) Macrocytic anemia with vitamin B12 deficiency Current Visit: Yes Status: Acute Code(s): D51.9 - VITAMIN B12 DEFICIENCY ANEMIA, UNSPECIFIED SNOMED Code(s): 51485709 (2) Esophageal varices determined by endoscopy Current Visit: No Status: Chronic Priority: Medium Code(s): I85.00 - ESOPHAGEAL VARICES WITHOUT BLEEDING SNOMED Code(s): 45784839 (3) Iron deficiency anemia due to chronic blood loss Current Visit: No Status: Chronic Priority: Medium Code(s): D50.0 - IRON DEFICIENCY ANEMIA SECONDARY TO BLOOD LOSS (CHRONIC) SNOMED Code(s): 941137829 (4) Liver cirrhosis Current Visit: No Status: Chronic Priority: Medium Code(s): K74.60 - UNSPECIFIED CIRRHOSIS OF LIVER SNOMED Code(s): 26114167 Plan: Assessment and Recommendations: 1. Severe Symptomatic Macrocytic Anemia: Secondary to Acute on Chronic GI Blood Loss with multifactorial compoenents of chronic liver disease and chronic inflammation - stable - Status Post EGD and COlonoscopy - Recent Varices Identified, GI is following - No evidence of monoclonal proteins 2. Renal Insufficiency: - Appears to run baseline Creat 1.2-1.6 when trended back to December 2018 3. Liver Cirrhosis: - Noted on prior CT abdomen - Monitor liver function 4. Recent Pneumonia/Fluid Overload: - Pulmonary is following - May require diuretics after fluids and transfusions 5. Esophageal Varices: - GI Following 6. 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
[2019-09-18 16:33] VITALS: BP 148/62; PULSE 63
--- NOTE | 2019-09-24 15:34 | P.DS ---
Providers Date of admission: 09/14/19 13:55 Expected date of discharge: 09/18/19 Attending physician: Bebeto Davila Consults: 09/14/19 13:46 Consult Physician Routine Consulting Provider: Arnaldo Monroe Consult Reason/Comments: GI bleed, hx varcies, anemia Do you want consulting provider notified?: Yes, Notify in am Consult Physician Stat Consulting Provider: Gonzalo Back Consult Reason/Comments: suspected GI bleed, hx of varices, anemia Do you want consulting provider notified?: Already Contacted 09/14/19 14:41 Consult Physician Urgent Consulting Provider: Fly Crane Consult Reason/Comments: anemia w hx of antibodies Do you want consulting provider notified?: Already Contacted 09/15/19 07:28 Consult Physician Stat Consulting Provider: Fly Crane Consult Reason/Comments: hgb 4 Do you want consulting provider notified?: Yes Primary care physician: [facility] Course: Final Diagnoses: Acute on chronic GI bleed, in a patient with history of AV malformation ,esophageal varices, banding . Status post repeat EGD, colonoscopy and capsule study.multiple nonbleeding small bowel angietasia scattered throughout the bowel, suspected to be the cause of the bleeding with no anticoagulation recommended. Acute on chronic symptomatic blood loss anemia in a patient who had been on Eliquis, secondary to the above, iron deficient, status post transfusion packed RBCs Recent EGD on 09/05/19 reported small distal esophageal varices, mild portal hypertensive gastropathy, small hiatal hernia Advanced COPD, stable Chronic atrial fibrillation, paroxysmal Essential tremors Thrombocytopenia Acute renal failure Acute metabolic encephalopathy secondary to the above Acute hepatic encephalopathy History of Left great toe wound with foreign body per x-ray, orthopedic surgery following Coccyx wound stage II. Gastroesophageal reflux disease Hepatic cirrhosis Generalized weakness, in a patient with history of chemotherapy induced peripheral neuropathy History of uterine cancer Possible B12 deficiency Ongoing nicotine dependence Chronic CHF, diastolic dysfunction Hypoalbuminemia with moderate protein calorie malnutrition Restless leg syndrome Hypothyroidism Hypokalemia Hospital course: This a 74-year-old female admitted with GI bleed, history of esophageal varices with banding, generalized weakness and multiple other medical issues. Evaluated by hematology and GI. Underwent repeat EGD, colonoscopy reporting no active bleeding, no old blood or source of GI bleeding noted, few columns of small nonbleeding esophageal varices in the distal esophagus, small hiatal hernia, mild portal hypertensive gastropathy, demented 2 mm descending colon polyp, low-grade internal hemorrhoids. Endoscopy performed, reporting significant for multiple nonbleeding small bowel angietasia scattered throughout the bowel, suspected to be the cause of the bleeding. Therefore GI recommended no anticoagulation. Cleared by all consults for discharge. Patient will be discharged home today in stable condition with guarded prognosis. The impression and plan of care has been dictated as directed. : I performed a history and examination of this patient, discussed the same with the dictator. I agree with the dictator's note ,documented as a scribe. Any additional findings or plans will be noted. Patient Condition at Discharge: Stable Plan - Discharge Summary New Discharge Prescriptions: New Sennosides-Docusate Sodium [Senokot-S] 2 tab PO BID #60 tablet Pantoprazole Sodium [Protonix] 40 mg PO BID #60 tablet.dr [place] Ferrous Sulfate [Feosol] 325 mg PO BID Levothyroxine Sodium [Synthroid] 25 mcg PO DAILY Donepezil [Aricept] 10 mg PO HS Memantine [Namenda] 10 mg PO BID Escitalopram [Lexapro] 10 mg PO DAILY Cetirizine HCl [Zyrtec] 10 mg PO DAILY Acetaminophen Tab [Tylenol] 650 mg PO Q6H PRN PRN Reason: Pain Ipratropium-Albuterol Nebulize [Duoneb 0.5 mg-3 mg/3 ml Soln] 3 ml INHALATION RT-QID PRN PRN Reason: Shortness Of Breath rOPINIRole HCL [Requip] 0.25 mg PO HS Baclofen 5 mg PO TID PRN PRN Reason: muscle spams SILVER sulfADIAZINE Cream [Silvadene 1% Cream] 1 applic TOPICAL BID Propranolol [Inderal] 10 mg PO TID #90 tab traMADol HCl [Ultram] 50 mg PO BID PRN PRN Reason: Pain Lisinopril [Zestril] 20 mg PO DAILY #90 tab Nicotine 14Mg/24Hr Patch [Habitrol] 1 patch TRANSDERM DAILY #30 patch Budesonide-Formot 160-4.5 Mcg [Symbicort 160-4.5 Mcg Inhaler] 2 puff INHALATION RT-BID #1 inh Potassium Chloride ER [K-Dur 20] 20 meq PO DAILY #30 tab Furosemide [Lasix] 20 mg PO HS Primidone [Mysoline] 25 mg PO Q24H #0 dose Furosemide [Lasix] 40 mg PO DAILY Lactulose [Cephulac] 20 gm PO BID PRN PRN Reason: Constipation Magnesium Oxide [Magox 400] 400 mg PO DAILY Metolazone [Zaroxolyn] 2.5 mg PO DAILY Discontinued Apixaban [Eliquis Starter Pack (for VTE)] See Taper PO DAILY Discharge Medication List Ferrous Sulfate [Feosol] 325 mg PO BID 10/29/16 [History] Donepezil [Aricept] 10 mg PO HS 11/07/17 [History] Levothyroxine Sodium [Synthroid] 25 mcg PO DAILY 11/07/17 [History] Cetirizine HCl [Zyrtec] 10 mg PO DAILY 01/14/19 [History] Escitalopram [Lexapro] 10 mg PO DAILY 01/14/19 [History] Memantine [Namenda] 10 mg PO BID 01/14/19 [History] Acetaminophen Tab [Tylenol] 650 mg PO Q6H PRN 05/01/19 [History] Ipratropium-Albuterol Nebulize [Duoneb 0.5 mg-3 mg/3 ml Soln] 3 ml INHALATION RT-QID PRN 05/01/19 [History] Baclofen 5 mg PO TID PRN 06/28/19 [History] SILVER sulfADIAZINE Cream [Silvadene 1% Cream] 1 applic TOPICAL BID 06/28/19 [History] rOPINIRole HCL [Requip] 0.25 mg PO HS 06/28/19 [History] Propranolol [Inderal] 10 mg PO TID #90 tab 06/30/19 [Rx] traMADol HCl [Ultram] 50 mg PO BID PRN 07/21/19 [History] Budesonide-Formot 160-4.5 Mcg [Symbicort 160-4.5 Mcg Inhaler] 2 puff INHALATION RT-BID #1 inh 08/13/19 [Rx] Lisinopril [Zestril] 20 mg PO DAILY #90 tab 08/13/19 [Rx] Nicotine 14Mg/24Hr Patch [Habitrol] 1 patch TRANSDERM DAILY #30 patch 08/13/19 [Rx] Potassium Chloride ER [K-Dur 20] 20 meq PO DAILY #30 tab 08/13/19 [Rx] Furosemide [Lasix] 20 mg PO HS 08/16/19 [History] Primidone [Mysoline] 25 mg PO Q24H #0 dose 09/07/19 [Rx] Furosemide [Lasix] 40 mg PO DAILY 09/14/19 [History] Lactulose [Cephulac] 20 gm PO BID PRN 09/14/19 [History] Magnesium Oxide [Magox 400] 400 mg PO DAILY 09/14/19 [History] Metolazone [Zaroxolyn] 2.5 mg PO DAILY 09/14/19 [History] Pantoprazole Sodium [Protonix] 40 mg PO BID #60 tablet. 09/18/19 [Rx] Sennosides-Docusate Sodium [Senokot-S] 2 tab PO BID #60 tablet 09/18/19 [Rx] Follow up Appointment(s)/Referral(s): Fly Crane MD [STAFF PHYSICIAN] - 1 Week [facility] [NON-STAFF] - 1 Week Bebeto Davila MD [Primary Care Provider] - 3 Days Arnaldo Monroe MD [STAFF PHYSICIAN] - 2 Weeks Ambulatory/Diagnostic Orders: Complete Blood Count w/diff [LAB.AMB] Time Frame: 3 Days, Location: None Selected Patient Instructions/Handouts: Gastrointestinal Bleeding (DC), Cirrhosis (DC), Esophageal Varices (DC), Anemia (DC) Activity/Diet/Wound Care/Special Instructions: No blood thinners/no anticoagulants Discharge Disposition: HOME WITH HOME HEALTH SERVICES
== END 2019-09-18 17:17 | disposition home health service (06) | DRG 377 ==
LOC: EC 12:11 → 2SICU 13:55 → 3SCARD 09-17 11:40
PROVIDERS: ADMIT Family Medicine; ATTEND Family Medicine
PROC: 30233N1 Transfusion of Nonautologous Red Blood Cells into Peripheral Vein, Percutaneous Approach (ICD-10-PCS; 2019-09-15)
PROC: 0DBM8ZX Excision of Descending Colon, Via Natural or Artificial Opening Endoscopic, Diagnostic (ICD-10-PCS; principal; 2019-09-16 08:20)
PROC: 0DJ08ZZ Inspection of Upper Intestinal Tract, Via Natural or Artificial Opening Endoscopic (ICD-10-PCS; principal; 2019-09-16 08:20)
PROC: 0DJ07ZZ Inspection of Upper Intestinal Tract, Via Natural or Artificial Opening (ICD-10-PCS; 2019-09-16 12:30)
DX: K92.2 Gastrointestinal hemorrhage, unspecified (principal); G93.41 Metabolic encephalopathy; I50.32 Chronic diastolic (congestive) heart failure; K76.6 Portal hypertension; R64 Cachexia; I85.10 Secondary esophageal varices without bleeding; K72.90 Hepatic failure, unspecified without coma; D51.9 Vitamin B12 deficiency anemia, unspecified; D63.8 Anemia in other chronic diseases classified elsewhere; F03.90 Unspecified dementia, unspecified severity, without behavioral disturbance, psychotic disturbance, mood disturbance, and anxiety; I11.0 Hypertensive heart disease with heart failure; K70.30 Alcoholic cirrhosis of liver without ascites; D50.0 Iron deficiency anemia secondary to blood loss (chronic); Z11.59 Encounter for screening for other viral diseases; D53.9 Nutritional anemia, unspecified; E78.5 Hyperlipidemia, unspecified; E87.6 Hypokalemia; F17.200 Nicotine dependence, unspecified, uncomplicated; G62.9 Polyneuropathy, unspecified; I48.0 Paroxysmal atrial fibrillation; K44.9 Diaphragmatic hernia without obstruction or gangrene; K64.8 Other hemorrhoids; F32.9 Major depressive disorder, single episode, unspecified; F41.9 Anxiety disorder, unspecified; K21.9 Gastro-esophageal reflux disease without esophagitis; M19.90 Unspecified osteoarthritis, unspecified site; R16.1 Splenomegaly, not elsewhere classified; J44.9 Chronic obstructive pulmonary disease, unspecified; D12.4 Benign neoplasm of descending colon; N28.9 Disorder of kidney and ureter, unspecified; H91.90 Unspecified hearing loss, unspecified ear; K31.89 Other diseases of stomach and duodenum; I99.8 Other disorder of circulatory system; E66.9 Obesity, unspecified; Z68.26 Body mass index [BMI] 26.0-26.9, adult; Z79.51 Long term (current) use of inhaled steroids; Z79.890 Hormone replacement therapy; Z79.899 Other long term (current) drug therapy; Z92.3 Personal history of irradiation; Z92.21 Personal history of antineoplastic chemotherapy; Z90.710 Acquired absence of both cervix and uterus; Z86.73 Personal history of transient ischemic attack (TIA), and cerebral infarction without residual deficits; Z85.42 Personal history of malignant neoplasm of other parts of uterus; Z98.42 Cataract extraction status, left eye; Z98.41 Cataract extraction status, right eye; Z87.01 Personal history of pneumonia (recurrent); Z80.9 Family history of malignant neoplasm, unspecified
CPT/HCPCS: 36415; 43235; 45380; 80048; 80053; 82272; 82607; 82668; 82728; 83010; 83540; 83550; 83615; 83921; 84484; 85025; 85027; 85045; 85384; 85385; 85610; 85730; 86850; 86860; 86870; 86880; 86885; 86900; 86901; 86920; 88305; 91110; 94640; 96361; 96374; 96375; 99285

== ENCOUNTER 2019-09-28 14:02 | Inpatient (IN) | payer MEDICARE ==
[2019-09-28 14:52] LABS: Anisocytosis Slight; HCT 23.7 % (34.0-46.0); HGB 7.2 gm/dL (11.4-16.0); Hypochromasia Marked; MCH 32.8 pg (25.0-35.0); MCHC 30.3 g/dL (31.0-37.0); MCV 108.3 fL (80.0-100.0); Macrocytosis Marked; Mean Platelet Volume 10.4; RBC 2.19 m/uL (3.80-5.40); RDW 18.7 % (11.5-15.5); WBC 11.9 k/uL (3.8-10.6)
[2019-09-28 14:55] LABS: Platelet Count 87 k/uL (150-450)
[2019-09-28 14:59] LABS: Albumin 2.1 g/dL (3.5-5.0); Calcium 7.5 mg/dL (8.4-10.2); Potassium 3.4 mmol/L (3.5-5.1); Total Bilirubin 0.8 mg/dL (0.2-1.3); Total Protein 6.1 g/dL (6.3-8.2)
--- NOTE | 2019-09-28 15:00 | ED ---
General Adult HPI - General Chief complaint: Weakness Stated complaint: weakness Time Seen by Provider: 09/28/19 14:05 Source: patient, EMS, RN notes reviewed, old records reviewed Mode of arrival: EMS - History of Present Illness Initial comments: This a 74-year-old female who presents emergency Department because she slid out of bed and hit her face on the nightstand. Patient states this happened yesterday morning when she woke up. Patient denies any headache patient denies loss of consciousness. Patient denies being days. Patient denies any neck pain. Patient denies any numbness weakness. Patient denies any chest or back pain. Patient denies any abdominal pain. Patient states she felt okay the rest of yesterday but today when she woke up she had a little right hip pain so she decided to come and get checked out. Patient states aside from the hip pain and some slight facial tenderness around the right eye she feels at her baseline. Patient states she feels no weaker than when she left the hospital she believes she can live at home with her family and take care of herself. Patient is an extremely poor historian - Related Data Home Medications Medication Instructions Recorded Confirmed Ferrous Sulfate [Feosol] 325 mg PO BID 10/29/16 09/28/19 Donepezil [Aricept] 10 mg PO HS 11/07/17 09/28/19 Levothyroxine Sodium [Synthroid] 25 mcg PO DAILY 11/07/17 09/28/19 Cetirizine HCl [Zyrtec] 10 mg PO DAILY 01/14/19 09/28/19 Escitalopram [Lexapro] 10 mg PO DAILY 01/14/19 09/28/19 Memantine [Namenda] 10 mg PO BID 01/14/19 09/28/19 SILVER sulfADIAZINE Cream 1 applic TOPICAL BID 06/28/19 09/28/19 [Silvadene 1% Cream] traMADol HCl [Ultram] 50 mg PO BID PRN 07/21/19 09/28/19 Furosemide [Lasix] 40 mg PO DAILY 09/14/19 09/28/19 Magnesium Oxide [Magox 400] 400 mg PO DAILY 09/14/19 09/28/19 Metolazone [Zaroxolyn] 2.5 mg PO DAILY 09/14/19 09/28/19 Apixaban [Eliquis] 5 mg PO BID 09/28/19 09/28/19 Cephalexin [Keflex] 500 mg PO TID 09/28/19 09/28/19 Furosemide [Lasix] 20 mg PO HS 09/28/19 09/28/19 Gabapentin 800 mg PO TID 09/28/19 09/28/19 Loperamide [Imodium] 2 - 4 mg PO Q12H PRN 09/28/19 09/28/19 Omeprazole [PriLOSEC] 40 mg PO DAILY 09/28/19 09/28/19 Potassium Chloride ER [K-Dur 20] 20 meq PO BID 09/28/19 09/28/19 Vitamin B Complex 1 cap PO DAILY 09/28/19 09/28/19 amLODIPine [Norvasc] 10 mg PO DAILY 09/28/19 09/28/19 rOPINIRole HCL [Requip] 0.5 mg PO HS 09/28/19 09/28/19 Previous Rx's Medication Instructions Recorded Propranolol [Inderal] 10 mg PO TID #90 tab 06/30/19 Lisinopril [Zestril] 20 mg PO DAILY #90 tab 08/13/19 Pantoprazole Sodium [Protonix] 40 mg PO BID #60 tablet. 09/18/19 Allergies Allergy/AdvReac Type Severity Reaction Status Date / Time No Known Allergies Allergy Verified 09/28/19 16:20 Review of Systems ROS Statement: Those systems with pertinent positive or pertinent negative responses have been documented in the HPI. ROS Other: All systems not noted in ROS Statement are negative. Past Medical History Past Medical History: Atrial Fibrillation, Cancer, Heart Failure, COPD, CVA/TIA, GERD/Reflux, GI Bleed, Hyperlipidemia, Hypertension, Osteoarthritis (OA) Additional Past Medical History / Comment(s): hx. uterine cancer, chemo 6 years ago, TIA several yrs. ago-forgetful, neuropathy feet & legs & hands, ANEMIA History of Any Multi-Drug Resistant Organisms: None Reported Past Surgical History: Hysterectomy, Tonsillectomy Additional Past Surgical History / Comment(s): COLONOSCOPY. EGD. BILAT CATARACTS REMOVED Past Anesthesia/Blood Transfusion Reactions: No Reported Reaction Past Psychological History: Anxiety, Depression Smoking Status: Current every day smoker Past Alcohol Use History: None Reported Past Drug Use History: None Reported - Past Family History Mother Family Medical History: Cancer Father History Unknown: Yes Family Medical History: Cancer Brother(s) Family Medical History: Cancer General Exam - General Exam Comments Initial Comments: GENERAL: Patient is well-developed and well-nourished. Patient is nontoxic and well- hydrated and is in mild distress. ENT: Neck is soft and supple. No significant lymphadenopathy is noted. Oropharynx is clear. Moist mucous membranes. Neck has full range of motion without eliciting any pain. EYES: The sclera were anicteric and conjunctiva were pink and moist. Extraocular movements were intact and pupils were equal round and reactive to light. E yelids were unremarkable. PULMONARY: Unlabored respirations. Good breath sounds bilaterally. No audible rales rhonchi or wheezing was noted. CARDIOVASCULAR: There is a regular rate and rhythm without any murmurs gallops or rubs. ABDOMEN: Soft and nontender with normal bowel sounds. SKIN: Skin is clear with no lesions or rashes and otherwise unremarkable. NEUROLOGIC: Patient is alert and oriented x3. Cranial nerves II through XII are grossly intact. Motor and sensory are also intact. Normal speech, volume and content. Symmetrical smile. MUSCULOSKELETAL: Patient is limited range of motion with the right hip. Patient has tenderness in the lateral aspect of the right hip. LYMPHATICS: No significant lymphadenopathy is noted PSYCHIATRIC: Normal psychiatric evaluation. N Limitations: no limitations Course Vital Signs 09/28/19 09/28/19 09/28/19 14:03 16:00 17:31 Temperature 98.2 F 97.8 F Pulse Rate 71 64 65 Respiratory 18 16 18 Rate Blood Pressure 121/98 94/55 98/48 O2 Sat by Pulse 93 L 100 93 L Oximetry 09/28/19 09/28/19 09/28/19 18:19 18:59 19:00 Temperature Pulse Rate 65 65 63 Respiratory 18 18 18 Rate Blood Pressure 100/44 115/45 109/47 O2 Sat by Pulse 96 98 97 Oximetry Medical Decision Making - Medical Decision Making EKG shows normal sinus rhythm at 70 bpm CO interval is on a 58 QRS is 66 QT interval 422 QTC is 455. There is quite a bit of noise on the EKG secondary to the patient shaking because she is cold. CT of the brain and C-spine showed no acute normalities. CT of the orbits show no acute abnormalities. There is a questionable nasal bone fracture. CT of the hip shows quite a bit of subcutaneous edema. No hip fracture. Patient a urinary tract infection. I started the patient on Rocephin. Patient's blood pressure did drop into the 80s systolic at one point I gave the patient 500 mL bolus of fluid and the patient was doing considerably better. I woke the patient up just prior to admission and she was having no complaints at this time. I spoke with Dr. Davila he agreed to admit the patient admitted the patient wrote admitting orders - Lab Data Result diagrams: 09/28/19 14:42 09/28/19 14:42 Lab Results 09/28/19 09/28/19 09/28/19 Range/Units 14:42 14:42 14:42 WBC 11.9 H (3.8-10.6) k/uL RBC 2.19 L (3.80-5.40) m/uL Hgb 7.2 L (11.4-16.0) gm/dL Hct 23.7 L (34.0-46.0) % MCV 108.3 H (80.0-100.0) fL MCH 32.8 (25.0-35.0) pg MCHC 30.3 L (31.0-37.0) g/dL RDW 18.7 H (11.5-15.5) % Plt Count 87 L (150-450) k/uL Neutrophils % (Manual) 92 % Lymphocytes % (Manual) 6 % Monocytes % (Manual) 2 % Neutrophils # (Manual) 10.95 H (1.3-7.7) k/uL Lymphocytes # (Manual) 0.71 L (1.0-4.8) k/uL Monocytes # (Manual) 0.24 (0-1.0) k/uL Nucleated RBCs 0 (0-0) /100 WBC Manual Slide Review Performed Hypochromasia Marked Anisocytosis Slight Macrocytosis Marked A Sodium 133 L (137-145) mmol/L Potassium 3.4 L (3.5-5.1) mmol/L Chloride 103 (98-107) mmol/L Carbon Dioxide 23 (22-30) mmol/L Anion Gap 7 mmol/L BUN 38 H (7-17) mg/dL Creatinine 1.96 H (0.52-1.04) mg/dL Est GFR (CKD-EPI)AfAm 28 (>60 ml/min/1.73 sqM) Est GFR (CKD-EPI)NonAf 24 (>60 ml/min/1.73 sqM) Glucose 129 H (74-99) mg/dL Plasma Lactic Acid Gamaliel (0.7-2.0) mmol/L Calcium 7.5 L (8.4-10.2) mg/dL Total Bilirubin 0.8 (0.2-1.3) mg/dL AST 105 H (14-36) U/L ALT 19 (4-34) U/L Alkaline Phosphatase 98 (38-126) U/L Creatine Kinase 1423 H* (30-135) U/L Total Protein 6.1 L (6.3-8.2) g/dL Albumin 2.1 L (3.5-5.0) g/dL Urine Color Urine Appearance (Clear) Urine pH (5.0-8.0) Ur Specific [place] (1.001-1.035) Urine Protein (Negative) Urine Glucose (UA) (Negative) Urine Ketones (Negative) Urine Blood (Negative) Urine Nitrite (Negative) Urine Bilirubin (Negative) Urine Urobilinogen (<2.0) mg/dL Ur Leukocyte Esterase (Negative) Urine RBC (0-5) /hpf Urine WBC (0-5) /hpf Urine WBC Clumps (None) /hpf Ur Squamous Epith Cells (0-4) /hpf Urine Bacteria (None) /hpf Hyaline Casts (0-2) /lpf Urine Mucus (None) /hpf 09/28/19 09/28/19 Range/Units 17:09 17:09 WBC (3.8-10.6) k/uL RBC (3.80-5.40) m/uL Hgb (11.4-16.0) gm/dL Hct (34.0-46.0) % MCV (80.0-100.0) fL MCH (25.0-35.0) pg MCHC (31.0-37.0) g/dL RDW (11.5-15.5) % Plt Count (150-450) k/uL Neutrophils % (Manual) % Lymphocytes % (Manual) % Monocytes % (Manual) % Neutrophils # (Manual) (1.3-7.7) k/uL Lymphocytes # (Manual) (1.0-4.8) k/uL Monocytes # (Manual) (0-1.0) k/uL Nucleated RBCs (0-0) /100 WBC Manual Slide Review Hypochromasia Anisocytosis Macrocytosis Sodium (137-145) mmol/L Potassium (3.5-5.1) mmol/L Chloride (98-107) mmol/L Carbon Dioxide (22-30) mmol/L Anion Gap mmol/L BUN (7-17) mg/dL Creatinine (0.52-1.04) mg/dL Est GFR (CKD-EPI)AfAm (>60 ml/min/1.73 sqM) Est GFR (CKD-EPI)NonAf (>60 ml/min/1.73 sqM) Glucose (74-99) mg/dL Plasma Lactic Acid Gamaliel 1.5 (0.7-2.0) mmol/L Calcium (8.4-10.2) mg/dL Total Bilirubin (0.2-1.3) mg/dL AST (14-36) U/L ALT (4-34) U/L Alkaline Phosphatase (38-126) U/L Creatine Kinase (30-135) U/L Total Protein (6.3-8.2) g/dL Albumin (3.5-5.0) g/dL Urine Color Yellow Urine Appearance Cloudy H (Clear) Urine pH 5.0 (5.0-8.0) Ur Specific [place] 1.010 (1.001-1.035) Urine Protein Negative (Negative) Urine Glucose (UA) Negative (Negative) Urine Ketones Negative (Negative) Urine Blood Trace H (Negative) Urine Nitrite Negative (Negative) Urine Bilirubin Negative (Negative) Urine Urobilinogen <2.0 (<2.0) mg/dL Ur Leukocyte Esterase Large H (Negative) Urine RBC 2 (0-5) /hpf Urine WBC 113 H (0-5) /hpf Urine WBC Clumps Many H (None) /hpf Ur Squamous Epith Cells <1 (0-4) /hpf Urine Bacteria Rare H (None) /hpf Hyaline Casts 5 H (0-2) /lpf Urine Mucus Rare H (None) /hpf Disposition Clinical Impression: Nasal bone fracture, UTI (urinary tract infection), Renal insufficiency, Right hip pain Disposition: ADMITTED IP TO THIS HOSP Referrals: Bebeto Davila MD [Primary Care Provider] - 1-2 days Time of Disposition: 19:22
[2019-09-28 15:06] LABS: Lymphocytes # (M) 0.71 k/uL (1.0-4.8); Monocytes # (M) 0.24 k/uL (0-1.0); Neutrophils # (M) 10.95 k/uL (1.3-7.7); Neutrophils % (M) 92 %; Nucleated Red Blood Cells 0 /100 WBC (0-0); Total Cells Counted 100
--- NOTE | 2019-09-28 15:15 | CT ---
EXAMINATION TYPE: CT brain cspine wo con DATE OF EXAM: 09/28/2019 COMPARISON: CT brain 09/01/2019 HISTORY: fall, trauma and pain CT DLP: combined DLP 814.2 mGycm Automated exposure control for dose reduction was used. TECHNIQUE: CT scan of the head and cervical spine are performed without contrast. FINDINGS: There is no acute intracranial hemorrhage, mass effect, or midline shift identified. The ventricles and sulci are within normal limits in size. The globes are intact and the visualized sin uses are clear. Cerebral vascular calcifications are present. Low density white matter changes are ag ain seen. Cervical spine is visualized in its entirety from C1 through upper thoracic levels and demonstrates s atisfactory alignment without evidence of acute fracture or dislocation. Prevertebral soft tissue ap pears within normal limits. The C1-C2 articulation is unremarkable. There is multilevel spondylosis. Loss of disc at C4-5, C5-6 and C6-7. IMPRESSION: 1. There is no acute fracture or dislocation evident in the cervical spine. 2. No acute intracranial hemorrhage, mass effect, or midline shift is seen.
--- NOTE | 2019-09-28 15:17 | XR ---
EXAMINATION TYPE: XR Hip Complete RT DATE OF EXAM: 09/28/2019 COMPARISON: NONE HISTORY: 74 year-old female trauma and hip pain after fall TECHNIQUE: 2 views FINDINGS: Mild degenerative change at the right hip. There is osteopenia. No displaced fracture is seen. Vascul ar calcifications. IMPRESSION: Mild right hip OA. Osteopenia without displaced fracture seen. Follow-up is recommended if the patien t is nonweightbearing.
--- NOTE | 2019-09-28 15:19 | CT ---
EXAMINATION TYPE: CT orbits wo con DATE OF EXAM: 09/28/2019 COMPARISON: CT brain same date HISTORY: fall, trauma and pain CT DLP: combined DLP 814.2 mGycm Automated exposure control for dose reduction was used. Helical imaging through the orbits. Coronal r econstructions. FINDINGS: Ostiomeatal units are patent. There is a deviated nasal septum. Tip of the nasal bone shows cortical irregularity. Orbits are intact. No evident blowout fracture. Globes are symmetric. Arthropathy is pr esent at the temporomandibular joints. Mastoid air cells are well aerated. No erosion of the scutum. Auditory ossicles show symmetric appearance. There are cerebral vascular calcifications noted inciden tally. IMPRESSION: NO EVIDENT DISLOCATION. CORRELATE FOR NASAL BONE FRACTURE.
[2019-09-28] MEDS ORDERED: SODIUM CHLORIDE 0.9% 500 ML 500 ML IV ONE (16:42)
[2019-09-28 17:40] LABS: Appearance,Urine Cloudy (Clear); Bacteria,Urine Rare /hpf; Bilirubin,Urine Negative (Negative); Blood,Urine Trace (Negative); Color,Urine Yellow; Glucose,Urine (UA) Negative (Negative); Hyaline Casts,Urine 5 /lpf (0-2); Ketones,Urine Negative (Negative); Leukocyte Esterase,Urine Large (Negative); Mucus,Urine Rare /hpf; Nitrite,Urine Negative (Negative); Protein,Urine Negative (Negative); RBC,Urine 2 /hpf (0-5); Squamous Epithelial Cell,Urine <1 /hpf (0-4); Urobilinogen,Urine <2.0 mg/dL (<2.0); WBC,Urine 113 /hpf (0-5)
[2019-09-28] MEDS ORDERED: cefTRIAXone IN SWFI 1,000 MG/10 ML SYRINGE IVP STA (17:59)
--- NOTE | 2019-09-28 19:11 | CT ---
EXAMINATION TYPE: CT hip RT wo con DATE OF EXAM: 09/28/2019 COMPARISON: None HISTORY: Right hip pain after fall. CT DLP: 625.4 mGycm Automated exposure control for dose reduction was used. Images were obtained from the mid ileum to the mid femur without contrast. There is extensive subcutaneous edema around the pelvis and right hip. The iliac bone is intact. Sacr oiliac joint appears intact. Acetabulum is intact. The pubic rami appear intact. The proximal femur i s intact. There is no evidence of hip fracture. There is no evidence of soft tissue mass. There is no significant hip joint effusion. There is catheter in the urinary bladder. IMPRESSION: No evidence of hip fracture. Extensive subcutaneous edema around the pelvis and right hip.
[2019-09-28] MEDS ORDERED: SODIUM CHLORIDE 0.9% 1,000 ML IV ONE (19:30)
[2019-09-28] MEDS ORDERED: traMADol 50 MG TAB PO PRN (22:29)
[2019-09-28] MEDS: LACTULOSE 20 GM/30 ML CUP PO SCH (23:01)
[2019-09-29] MEDS: LEVOTHYROXINE 25 MCG TAB PO SCH (05:29)
[2019-09-29] MEDS: LACTULOSE 20 GM/30 ML CUP PO SCH ×2 (07:58→21:05)
[2019-09-29] MEDS: POTASSIUM CHLORIDE ER 20 MEQ TAB.ER PO SCH ×2 (07:58→21:06)
[2019-09-29] MEDS: GABAPENTIN 400 MG CAP PO SCH ×3 (07:58→21:06)
[2019-09-29] MEDS: PANTOPRAZOLE 40 MG TABLET PO SCH ×2 (07:58→21:06)
[2019-09-29] MEDS: amLODIPine 10 MG TAB PO SCH (07:58)
[2019-09-29] MEDS: MAGNESIUM OXIDE 400 MG TAB PO SCH (07:58)
[2019-09-29] MEDS: LISINOPRIL 20 MG TAB PO SCH (07:59)
[2019-09-29] MEDS: FERROUS SULFATE 325 MG TAB PO SCH ×2 (07:59→21:05)
[2019-09-29] MEDS: LORATADINE 10 MG TAB PO SCH (07:59)
[2019-09-29] MEDS: FUROSEMIDE 40 MG TAB PO SCH ×2 (07:59→21:05)
[2019-09-29] MEDS: PROPRANOLOL 10 MG TAB PO SCH ×3 (08:00→21:06)
[2019-09-29] MEDS: ESCITALOPRAM 10 MG TAB PO SCH (08:00)
[2019-09-29] MEDS: MEMANTINE 10 MG TAB PO SCH ×2 (08:00→21:06)
[2019-09-29 08:46] LABS: Albumin 1.8 g/dL (3.5-5.0); Calcium 7.3 mg/dL (8.4-10.2); Potassium 3.9 mmol/L (3.5-5.1); Total Bilirubin 0.4 mg/dL (0.2-1.3); Total Protein 5.3 g/dL (6.3-8.2)
[2019-09-29] MEDS ORDERED: NON FORMULARY DRUG (Vitamin B Complex [Vitamin B Complex] 1 CAP) PO SCH (09:00)
[2019-09-29 09:12] LABS: Anisocytosis Slight; HCT 21.5 % (34.0-46.0); Hypochromasia Marked; MCH 32.6 pg (25.0-35.0); MCHC 29.5 g/dL (31.0-37.0); MCV 110.4 fL (80.0-100.0); Macrocytosis Marked; Mean Platelet Volume 11.7; RBC 1.95 m/uL (3.80-5.40); RDW 18.6 % (11.5-15.5); WBC 9.2 k/uL (3.8-10.6)
[2019-09-29 09:24] LABS: HGB 6.4 gm/dL (11.4-16.0); Platelet Count 68 k/uL (150-450)
[2019-09-29 10:11] LABS: Lymphocytes # (M) 0.28 k/uL (1.0-4.8); Monocytes # (M) 0.18 k/uL (0-1.0); Neutrophils # (M) 8.74 k/uL (1.3-7.7); Neutrophils % (M) 95 %; Nucleated Red Blood Cells 0 /100 WBC (0-0); Total Cells Counted 100
--- NOTE | 2019-09-29 15:21 | P.CONS ---
History of Present Illness - Reason for Consult Consult date: 09/29/19 Urinary tract infection Requesting physician: Bebeto Davila - Chief Complaint Weakness and fall x one day - History of Present Illness Patient is 74 year female presented to the ER yesterday afternoon after the patient did have a fall the patient slid out of the bed and hit her face on the nightstand it happened the day before presentation to the hospital patient denies any headache or loss of consciousness however having umbilical generalized weakness and no energy. Also, some pain in the right hip area with asymptomatic the patient presented to the hospital on arrival to the ER, The patient has been afebrile, the patient did have mildly elevated white count of 11.9 she's also prerenal with elevated BUN/creatinine did have a positive UA which was cloudy with large leukocyte esterase and many WBC, CT of the head was negative for any bleed CT of the right hip today shows extensive subcutaneous edema around the pelvis and right hip no fracture patient has been diagnosed with urinary tract infection has been admitted to the hospital infections was consulted for further management of antibiotic therapy currently on Rocephin 1 g daily Review of Systems Positive point has been mentioned in the HPI rest of the systems are negative Past Medical History Past Medical History: Atrial Fibrillation, Cancer, Heart Failure, COPD, CVA/TIA, GERD/Reflux, GI Bleed, Hyperlipidemia, Hypertension, Osteoarthritis (OA) Additional Past Medical History / Comment(s): hx. uterine cancer, chemo 6 years ago, TIA several yrs. ago-forgetful, neuropathy feet & legs & hands, ANEMIA History of Any Multi-Drug Resistant Organisms: None Reported Past Surgical History: Hysterectomy, Tonsillectomy Additional Past Surgical History / Comment(s): COLONOSCOPY. EGD. BILAT CATARACTS REMOVED Past Anesthesia/Blood Transfusion Reactions: No Reported Reaction Past Psychological History: Anxiety, Depression Smoking Status: Current every day smoker Past Alcohol Use History: None Reported Additional Past Alcohol Use History / Comment(s): SMOKES 1PPD SINCE AGE 12 Past Drug Use History: None Reported - Past Family History Mother Family Medical History: Cancer Father History Unknown: Yes Family Medical History: Cancer Brother(s) Family Medical History: Cancer Medications and Allergies Home Medications Medication Instructions Recorded Confirmed Type Ferrous Sulfate [Feosol] 325 mg PO BID 10/29/16 09/28/19 History Donepezil [Aricept] 10 mg PO HS 11/07/17 09/28/19 History Levothyroxine Sodium [Synthroid] 25 mcg PO DAILY 11/07/17 09/28/19 History Cetirizine HCl [Zyrtec] 10 mg PO DAILY 01/14/19 09/28/19 History Escitalopram [Lexapro] 10 mg PO DAILY 01/14/19 09/28/19 History Memantine [Namenda] 10 mg PO BID 01/14/19 09/28/19 History SILVER sulfADIAZINE Cream 1 applic TOPICAL BID 06/28/19 09/28/19 History [Silvadene 1% Cream] Propranolol [Inderal] 10 mg PO TID #90 tab 06/30/19 09/28/19 Rx traMADol HCl [Ultram] 50 mg PO BID PRN 07/21/19 09/28/19 History Lisinopril [Zestril] 20 mg PO DAILY #90 tab 08/13/19 09/28/19 Rx Furosemide [Lasix] 40 mg PO DAILY 09/14/19 09/28/19 History Magnesium Oxide [Magox 400] 400 mg PO DAILY 09/14/19 09/28/19 History Metolazone [Zaroxolyn] 2.5 mg PO DAILY 09/14/19 09/28/19 History Pantoprazole Sodium [Protonix] 40 mg PO BID #60 tablet. 09/18/19 09/28/19 Rx Apixaban [Eliquis] 5 mg PO BID 09/28/19 09/28/19 History Cephalexin [Keflex] 500 mg PO TID 09/28/19 09/28/19 History Furosemide [Lasix] 20 mg PO HS 09/28/19 09/28/19 History Gabapentin 800 mg PO TID 09/28/19 09/28/19 History Loperamide [Imodium] 2 - 4 mg PO Q12H PRN 09/28/19 09/28/19 History Omeprazole [PriLOSEC] 40 mg PO DAILY 09/28/19 09/28/19 History Potassium Chloride ER [K-Dur 20] 20 meq PO BID 09/28/19 09/28/19 History Vitamin B Complex 1 cap PO DAILY 09/28/19 09/28/19 History amLODIPine [Norvasc] 10 mg PO DAILY 09/28/19 09/28/19 History rOPINIRole HCL [Requip] 0.5 mg PO HS 09/28/19 09/28/19 History Allergies Allergy/AdvReac Type Severity Reaction Status Date / Time No Known Allergies Allergy Verified 09/28/19 16:20 Physical Exam Vitals: Vital Signs Temp Pulse Pulse Resp BP BP Pulse Ox 09/29/19 04:30 98.2 F 72 16 105/42 95 09/29/19 00:00 85 16 09/28/19 22:00 60 12 104/52 98 09/28/19 21:33 98.1 F 82 18 107/46 96 09/28/19 19:00 63 18 109/47 97 09/28/19 18:59 65 18 115/45 98 09/28/19 18:19 65 18 100/44 96 09/28/19 17:31 97.8 F 65 18 98/48 93 L 09/28/19 16:00 64 16 94/55 100 09/28/19 14:03 98.2 F 71 18 121/98 93 L Intake and Output 09/28/19 09/29/19 09/29/19 22:59 06:59 14:59 Intake Total 680 400 Output Total 600 Balance 680 -200 Intake: Intake, IV Titration 200 400 Amount cefTRIAXone 1 gm In 200 400 Sodium Chloride 0.9% 50 ml @ 100 mls/hr IVPB Q12HR [facility] Rx#:[id number] Oral 480 Output: Urine 600 Other: Voiding Method Indwelling Catheter Indwelling Catheter Weight 66.224 kg GENERAL DESCRIPTION: Elderly female lying in bed, no distress. No tachypnea or accessory muscle of respiration use. HEENT: Shows Pallor , no scleral icterus. Oral mucous membrane is dry. No pharyngeal erythema or thrush NECK: Trachea central, no thyromegaly. LUNGS: Unlabored breathing. Decreased breath sound at the base. No wheeze or crackle. HEART: S1, S2, regular rate and rhythm. No loud murmur ABDOMEN: Soft, no tenderness , guarding or rigidity, no organomegaly EXTREMITIES: No edema of feet. SKIN: No rash, no masses palpable. NEUROLOGICAL: The patient is awake, alert, oriented x3, mood and affect normal. Results CBC & Chem 7: 09/29/19 07:37 09/29/19 07:37 Labs: Abnormal Lab Results - Last 24 Hours (Table) 09/28/19 09/28/19 09/28/19 Range/Units 14:42 14:42 14:42 WBC 11.9 H (3.8-10.6) k/uL RBC 2.19 L (3.80-5.40) m/uL Hgb 7.2 L (11.4-16.0) gm/dL Hct 23.7 L (34.0-46.0) % MCV 108.3 H (80.0-100.0) fL MCHC 30.3 L (31.0-37.0) g/dL RDW 18.7 H (11.5-15.5) % Plt Count 87 L (150-450) k/uL Neutrophils # (Manual) 10.95 H (1.3-7.7) k/uL Lymphocytes # (Manual) 0.71 L (1.0-4.8) k/uL Macrocytosis Marked A Sodium 133 L (137-145) mmol/L Potassium 3.4 L (3.5-5.1) mmol/L Chloride (98-107) mmol/L BUN 38 H (7-17) mg/dL Creatinine 1.96 H (0.52-1.04) mg/dL Glucose 129 H (74-99) mg/dL Calcium 7.5 L (8.4-10.2) mg/dL AST 105 H (14-36) U/L Creatine Kinase 1423 H* (30-135) U/L Total Protein 6.1 L (6.3-8.2) g/dL Albumin 2.1 L (3.5-5.0) g/dL Urine Appearance (Clear) Urine Blood (Negative) Ur Leukocyte Esterase (Negative) Urine WBC (0-5) /hpf Urine WBC Clumps (None) /hpf Urine Bacteria (None) /hpf Hyaline Casts (0-2) /lpf Urine Mucus (None) /hpf 09/28/19 09/29/19 09/29/19 Range/Units 17:09 07:37 07:37 WBC (3.8-10.6) k/uL RBC 1.95 L (3.80-5.40) m/uL Hgb 6.4 L* (11.4-16.0) gm/dL Hct 21.5 L (34.0-46.0) % MCV 110.4 H (80.0-100.0) fL MCHC 29.5 L (31.0-37.0) g/dL RDW 18.6 H (11.5-15.5) % Plt Count 68 L (150-450) k/uL Neutrophils # (Manual) 8.74 H (1.3-7.7) k/uL Lymphocytes # (Manual) 0.28 L (1.0-4.8) k/uL Macrocytosis Marked A Sodium (137-145) mmol/L Potassium (3.5-5.1) mmol/L Chloride 109 H (98-107) mmol/L BUN 39 H (7-17) mg/dL Creatinine 2.02 H (0.52-1.04) mg/dL Glucose 119 H (74-99) mg/dL Calcium 7.3 L (8.4-10.2) mg/dL AST 116 H (14-36) U/L Creatine Kinase (30-135) U/L Total Protein 5.3 L (6.3-8.2) g/dL Albumin 1.8 L (3.5-5.0) g/dL Urine Appearance Cloudy H (Clear) Urine Blood Trace H (Negative) Ur Leukocyte Esterase Large H (Negative) Urine WBC 113 H (0-5) /hpf Urine WBC Clumps Many H (None) /hpf Urine Bacteria Rare H (None) /hpf Hyaline Casts 5 H (0-2) /lpf Urine Mucus Rare H (None) /hpf Microbiology - Last 24 Hours (Table) 09/28/19 17:09 Urine Culture - Preliminary Urine,Voided Assessment and Plan Assessment: 1-patient presented to hospital with fall and the patient complaining of generalized weakness and no energy did have urinary symptoms positive UA and mildly elevated white count likely symptomatic urinary tract infection from a enteric gram-negative pathogen (1) UTI (urinary tract infection) Current Visit: Yes Status: Acute Code(s): N39.0 - URINARY TRACT INFECTION, SITE NOT SPECIFIED SNOMED Code(s): 03956107 Plan: 1- Rocephin 1 g IV piggyback daily 2-gentle IV fluid We will follow on clinical condition and cultures to further adjust medication if needed Thank you for this consultation will follow this patient with you Time with Patient: Greater than 30
--- NOTE | 2019-09-29 18:46 | P.CONS ---
History of Present Illness - Reason for Consult Consult date: 09/29/19 anemia Requesting physician: Bebeto Davila - Chief Complaint hip pain after fall - History of Present Illness Please refer to patient consult 09/15/19 for Hem/Onc Hx. Patient is currently admitted from home after a fall out of bed with trauma to the face. She started developing hip pain a few days later so, she came to the hospital. She is had imaging done, no acute fractures, maybe nose. She denies any bleeding, she is taking oral iron. Review of Systems 10 point review of systems is negative except as stated in HPI Past Medical History Past Medical History: Atrial Fibrillation, Cancer, Heart Failure, COPD, CVA/TIA, GERD/Reflux, GI Bleed, Hyperlipidemia, Hypertension, Osteoarthritis (OA) Additional Past Medical History / Comment(s): hx. uterine cancer, chemo 6 years ago, TIA several yrs. ago-forgetful, neuropathy feet & legs & hands, ANEMIA History of Any Multi-Drug Resistant Organisms: None Reported Past Surgical History: Hysterectomy, Tonsillectomy Additional Past Surgical History / Comment(s): COLONOSCOPY. EGD. BILAT CATARACTS REMOVED Past Anesthesia/Blood Transfusion Reactions: No Reported Reaction Past Psychological History: Anxiety, Depression Smoking Status: Current every day smoker Past Alcohol Use History: None Reported Additional Past Alcohol Use History / Comment(s): SMOKES 1PPD SINCE AGE 12 Past Drug Use History: None Reported - Past Family History Mother Family Medical History: Cancer Father History Unknown: Yes Family Medical History: Cancer Brother(s) Family Medical History: Cancer Medications and Allergies Home Medications Medication Instructions Recorded Confirmed Type Ferrous Sulfate [Feosol] 325 mg PO BID 10/29/16 09/28/19 History Donepezil [Aricept] 10 mg PO HS 11/07/17 09/28/19 History Levothyroxine Sodium [Synthroid] 25 mcg PO DAILY 11/07/17 09/28/19 History Cetirizine HCl [Zyrtec] 10 mg PO DAILY 01/14/19 09/28/19 History Escitalopram [Lexapro] 10 mg PO DAILY 01/14/19 09/28/19 History Memantine [Namenda] 10 mg PO BID 01/14/19 09/28/19 History SILVER sulfADIAZINE Cream 1 applic TOPICAL BID 06/28/19 09/28/19 History [Silvadene 1% Cream] Propranolol [Inderal] 10 mg PO TID #90 tab 06/30/19 09/28/19 Rx traMADol HCl [Ultram] 50 mg PO BID PRN 07/21/19 09/28/19 History Lisinopril [Zestril] 20 mg PO DAILY #90 tab 08/13/19 09/28/19 Rx Furosemide [Lasix] 40 mg PO DAILY 09/14/19 09/28/19 History Magnesium Oxide [Magox 400] 400 mg PO DAILY 09/14/19 09/28/19 History Metolazone [Zaroxolyn] 2.5 mg PO DAILY 09/14/19 09/28/19 History Pantoprazole Sodium [Protonix] 40 mg PO BID #60 tablet. 09/18/19 09/28/19 Rx Apixaban [Eliquis] 5 mg PO BID 09/28/19 09/28/19 History Cephalexin [Keflex] 500 mg PO TID 09/28/19 09/28/19 History Furosemide [Lasix] 20 mg PO HS 09/28/19 09/28/19 History Gabapentin 800 mg PO TID 09/28/19 09/28/19 History Loperamide [Imodium] 2 - 4 mg PO Q12H PRN 09/28/19 09/28/19 History Omeprazole [PriLOSEC] 40 mg PO DAILY 09/28/19 09/28/19 History Potassium Chloride ER [K-Dur 20] 20 meq PO BID 09/28/19 09/28/19 History Vitamin B Complex 1 cap PO DAILY 09/28/19 09/28/19 History amLODIPine [Norvasc] 10 mg PO DAILY 09/28/19 09/28/19 History rOPINIRole HCL [Requip] 0.5 mg PO HS 09/28/19 09/28/19 History Allergies Allergy/AdvReac Type Severity Reaction Status Date / Time No Known Allergies Allergy Verified 09/28/19 16:20 Physical Exam Vitals: Vital Signs Temp Pulse Pulse Resp BP BP Pulse Ox 09/29/19 17:15 98.7 F 77 16 102/61 97 09/29/19 17:13 98.7 F 77 16 102/61 97 09/29/19 14:27 97.9 F 77 16 105/55 95 09/29/19 13:57 98.3 F 81 18 113/46 97 09/29/19 13:47 98.2 F 78 18 111/46 94 L 09/29/19 12:04 99.4 F 73 18 105/46 97 09/29/19 04:30 98.2 F 72 16 105/42 95 09/29/19 00:00 85 16 09/28/19 22:00 60 12 104/52 98 09/28/19 21:33 98.1 F 82 18 107/46 96 09/28/19 19:00 63 18 109/47 97 09/28/19 18:59 65 18 115/45 98 09/28/19 18:19 65 18 100/44 96 Intake and Output 09/29/19 09/29/19 09/29/19 06:59 14:59 22:59 Intake Total 400 0 310 Output Total 600 300 Balance -200 0 10 Intake: Intake, IV Titration 400 Amount cefTRIAXone 1 gm In 400 Sodium Chloride 0.9% 50 ml @ 100 mls/hr IVPB Q12HR [facility] Rx#:[id number] Blood Product 0 310 Rc As-3 Unit 0 310 [id number] Output: Urine 600 300 Other: Voiding Method Indwelling Catheter Indwelling Catheter Indwelling Catheter # Bowel Movements 1 2 - Constitutional General appearance: average body habitus, cooperative, no acute distress - EENT Eyes: anicteric sclerae, EOMI ENT: hearing grossly normal, normal oropharynx - Neck Neck: no lymphadenopathy - Respiratory Respiratory: bilateral: CTA - Cardiovascular Rhythm: regular Heart sounds: normal: S1, S2 Abnormal Heart Sounds: no systolic murmur, no diastolic murmur, no rub, no S3 Gallop, no S4 Gallop, no click, no other leg Peripheral Edema: bilateral: None - Gastrointestinal General gastrointestinal: normal bowel sounds, soft - Neurologic Neurologic: CNII-XII intact - Musculoskeletal Musculoskeletal: strength equal bilaterally - Psychiatric Psychiatric: A&O x's 3, appropriate affect, intact judgment & insight Results CBC & Chem 7: 09/29/19 07:37 09/29/19 07:37 Labs: Abnormal Lab Results - Last 24 Hours (Table) 09/28/19 09/29/19 09/29/19 Range/Units 14:42 07:37 07:37 RBC 1.95 L (3.80-5.40) m/uL Hgb 6.4 L* (11.4-16.0) gm/dL Hct 21.5 L (34.0-46.0) % MCV 110.4 H (80.0-100.0) fL MCHC 29.5 L (31.0-37.0) g/dL RDW 18.6 H (11.5-15.5) % Plt Count 68 L (150-450) k/uL Neutrophils # (Manual) 8.74 H (1.3-7.7) k/uL Lymphocytes # (Manual) 0.28 L (1.0-4.8) k/uL Macrocytosis Marked A Chloride 109 H (98-107) mmol/L BUN 39 H (7-17) mg/dL Creatinine 2.02 H (0.52-1.04) mg/dL Glucose 119 H (74-99) mg/dL Calcium 7.3 L (8.4-10.2) mg/dL AST 116 H (14-36) U/L Creatine Kinase 1423 H* (30-135) U/L Total Protein 5.3 L (6.3-8.2) g/dL Albumin 1.8 L (3.5-5.0) g/dL Crossmatch 09/29/19 Range/Units 09:53 RBC (3.80-5.40) m/uL Hgb (11.4-16.0) gm/dL Hct (34.0-46.0) % MCV (80.0-100.0) fL MCHC (31.0-37.0) g/dL RDW (11.5-15.5) % Plt Count (150-450) k/uL Neutrophils # (Manual) (1.3-7.7) k/uL Lymphocytes # (Manual) (1.0-4.8) k/uL Macrocytosis Chloride (98-107) mmol/L BUN (7-17) mg/dL Creatinine (0.52-1.04) mg/dL Glucose (74-99) mg/dL Calcium (8.4-10.2) mg/dL AST (14-36) U/L Creatine Kinase (30-135) U/L Total Protein (6.3-8.2) g/dL Albumin (3.5-5.0) g/dL Crossmatch See Detail Microbiology - Last 24 Hours (Table) 09/28/19 17:09 Urine Culture - Preliminary Urine,Voided Comments: X-ray reports reviewed Assessment and Plan (1) Anemia Current Visit: Yes Status: Acute Code(s): D64.9 - ANEMIA, UNSPECIFIED SNOMED Code(s): 179656801 (2) B12 nutritional deficiency Current Visit: Yes Status: Chronic Priority: Medium Code(s): E53.8 - DEFICIENCY OF OTHER SPECIFIED B GROUP VITAMINS SNOMED Code(s): 265916034 (3) Esophageal varices determined by endoscopy Current Visit: Yes Status: Chronic Priority: Medium Code(s): I85.00 - ESOPHAGEAL VARICES WITHOUT BLEEDING SNOMED Code(s): 21993331 (4) Iron deficiency anemia due to chronic blood loss Current Visit: Yes Status: Chronic Priority: Medium Code(s): D50.0 - IRON DEFICIENCY ANEMIA SECONDARY TO BLOOD LOSS (CHRONIC) SNOMED Code(s): 279065472 Plan: Patient is to be transfused with 1 unit of packed red blood cells for hemoglobin less than 7 Requested iron studies on pretransfusion blood. If patient is requiring iron it will be provided. Based on patient's persistent and progressive chronic kidney disease eop would be recommended as long as iron stores are adequate Attests: I have seen and examined patient, performed H&P, developed impression and plan of care. Discussed with dictator, agree with documentation. Documented as a scribe.
[2019-09-29 18:48] LABS: Anisocytosis Moderate; HCT 26.1 % (34.0-46.0); Hypochromasia Marked; MCH 32.8 pg (25.0-35.0); MCHC 31.3 g/dL (31.0-37.0); Macrocytosis Marked; Mean Platelet Volume 10.9; Poikilocytosis Moderate; RBC 2.49 m/uL (3.80-5.40); RDW 21.6 % (11.5-15.5); WBC 12.9 k/uL (3.8-10.6)
[2019-09-29 18:54] LABS: HGB 8.2 gm/dL (11.4-16.0)
[2019-09-29 18:55] LABS: MCV 104.9 fL (80.0-100.0); Platelet Count 84 k/uL (150-450)
[2019-09-29 19:02] LABS: % Iron Saturation 10.49 (12.00-45.00); Ferritin 584.4 ng/mL (10.0-291.0)
[2019-09-29] MEDS: DONEPEZIL 10 MG TAB PO SCH (21:05)
[2019-09-29] MEDS ORDERED: DARBEPOETIN ALFA 100MCG/0.5ML SYRINGE SQ SCH (22:15)
--- NOTE | 2019-09-29 23:02 | HP ---
HISTORY AND PHYSICAL This is a 74-year-old white female with generalized weakness and fall for one day, fell off the bed, nightstand, hit head. Denies any headache, loss of consciousness. She has generalized weakness and no energy. Some pain in the right hip area. Asymptomatic. Presented in the ER. Afebrile. Elevated BUN, creatinine. Positive UA, cloudy, large leukocyte esterase. CT of the head is negative for any bleed. Subcutaneous edema around the pelvis. No hip fracture. Possible UTI with a culture coming back showing kirk. REVIEW OF SYSTEMS: Fourteen-point review of systems negative except for mentioned in HPI. PAST MEDICAL HISTORY: Atrial fibrillation, cancer, heart failure, COPD, CVA, TIA, GERD, GI bleed, dyslipidemia, hypertension, osteoarthritis, neuropathy, history of uterine cancer. Anxiety. Depression. PAST SURGICAL HISTORY: Hysterectomy, tonsillectomy, colonoscopy, EGD, cataracts. SOCIAL HISTORY: Current everyday smoker. No alcohol. No drugs. FAMILY HISTORY: Mother with cancer. Father with cancer. Brother with cancer. HOME MEDICINES: 1. Zaroxolyn 2.5 daily. 2. Mag oxide 400 daily. 3. Lasix 40 daily. 4. Zestril 20 daily. 5. Tramadol 50 b.i.d. 6. Inderal 10 t.i.d. 7. Namenda 10 b.i.d. 8. Lexapro 10 mg daily. 9. Zyrtec 10 mg daily. 10.Synthroid 25 mcg daily. 11.Carafate 10 mg daily. 12.Ferrous sulfate 325 b.i.d. 13.Eliquis 5 mg b.i.d. 14.Lasix 20 daily. 15.Gabapentin 800 t.i.d. 16.Prilosec 40 daily. 17.K-Dur 20 b.i.d. 18.Amlodipine 10 daily. 19.Requip 0.5 at night. ALLERGIES: NEGATIVE. PHYSICAL EXAMINATION: Temp 98.2, pulse 70s to 80s, respiratory rate 16-20, blood pressure 104 to 115 over 40s to 60s, pulse ox 93% to 100% on room air. Lungs show rales at the bases. HEART: S1, S2. Abdomen is soft. SKIN: No rash, excoriation, bruising. TRACHEA: No thyromegaly. NEUROLOGIC: Alert orient x3. LABS: Hemoglobin was 6.4, up to 8.2 after transfusion. BUN is 39, creatinine 2.02. Glucose 129. BUN is 38, creatinine 1.96. UA with large leukocyte esterase, many white blood cell clumps. IV Rocephin will be given. Blood transfusions to be given. Generalized weakness secondary to anemia. UTI. Prognosis guarded. MMANGE / RUTHN: [id number] /
[2019-09-30] MEDS: LEVOTHYROXINE 25 MCG TAB PO SCH (05:49)
[2019-09-30] MEDS: LACTULOSE 20 GM/30 ML CUP PO SCH ×2 (08:24→21:01)
[2019-09-30] MEDS: POTASSIUM CHLORIDE ER 20 MEQ TAB.ER PO SCH ×2 (08:25→21:02)
[2019-09-30] MEDS: LORATADINE 10 MG TAB PO SCH (08:26)
[2019-09-30] MEDS: FERROUS SULFATE 325 MG TAB PO SCH ×2 (08:26→21:01)
[2019-09-30] MEDS: PANTOPRAZOLE 40 MG TABLET PO SCH ×2 (08:26→21:02)
[2019-09-30] MEDS: LISINOPRIL 20 MG TAB PO SCH (08:26)
[2019-09-30] MEDS: amLODIPine 10 MG TAB PO SCH (08:26)
[2019-09-30] MEDS: FUROSEMIDE 40 MG TAB PO SCH ×2 (08:26→21:01)
[2019-09-30] MEDS: MAGNESIUM OXIDE 400 MG TAB PO SCH (08:26)
[2019-09-30] MEDS: MEMANTINE 10 MG TAB PO SCH (08:27)
[2019-09-30] MEDS: ESCITALOPRAM 10 MG TAB PO SCH (08:27)
[2019-09-30] MEDS: PROPRANOLOL 10 MG TAB PO SCH ×3 (08:27→21:03)
[2019-09-30 08:28] LABS: Calcium 7.6 mg/dL (8.4-10.2); Potassium 4.1 mmol/L (3.5-5.1); Total Bilirubin 0.8 mg/dL (0.2-1.3); Total Protein 5.8 g/dL (6.3-8.2)
[2019-09-30] MEDS: GABAPENTIN 400 MG CAP PO SCH ×3 (08:30→21:03)
[2019-09-30 08:42] LABS: Anisocytosis Moderate; HCT 27.1 % (34.0-46.0); HGB 8.3 gm/dL (11.4-16.0); Hypochromasia Marked; MCH 32.4 pg (25.0-35.0); MCHC 30.8 g/dL (31.0-37.0); MCV 105.1 fL (80.0-100.0); Macrocytosis Marked; Mean Platelet Volume 10.9; Platelet Count 63 k/uL (150-450); Poikilocytosis Moderate; RBC 2.57 m/uL (3.80-5.40); WBC 11.6 k/uL (3.8-10.6)
[2019-09-30] MEDS ORDERED: CYANOCOBALAMIN 1,000 MCG/ML 1 ML VIAL IM ONE (10:18)
--- NOTE | 2019-09-30 10:20 | P.PN ---
Subjective Progress Note Date: 09/30/19 Principal diagnosis: Pain after trauma, anemia In f/u today pt has no c/o on a 10 point ROS, denies bleeding Objective - Vital Signs Vital signs: Vital Signs Temp 98.6 F 09/30/19 04:10 Pulse 76 09/30/19 04:10 Resp 14 09/30/19 04:10 BP 110/57 09/30/19 04:10 Pulse Ox 96 09/30/19 04:10 Intake & Output 09/29/19 09/30/19 09/30/19 18:59 06:59 18:59 Intake Total 310 590 Output Total 300 603 Balance 10 - Intake: Oral 590 Blood Product 310 Rc As-3 Unit 310 [id number] Output: Urine 300 600 Uretheral (An) 600 Stool 3 Other: Voiding Method Indwelling Catheter # Bowel Movements 2 - Constitutional General appearance: Present: average body habitus, cooperative, no acute distress - EENT Eyes: Present: anicteric sclerae, EOMI ENT: Present: hearing grossly normal - Respiratory Respiratory: bilateral: CTA - Cardiovascular Rhythm: regular Heart sounds: normal: S1, S2 Abnormal Heart Sounds: Absent: systolic murmur, diastolic murmur, rub, S3 Gallop, S4 Gallop, click, other - Gastrointestinal General gastrointestinal: Present: normal bowel sounds, soft - Neurologic Neurologic: Present: CNII-XII intact - Musculoskeletal Musculoskeletal: Present: strength equal bilaterally - Psychiatric Psychiatric: Present: A&O x's 3, appropriate affect - Labs CBC & Chem 7: 09/30/19 07:50 09/30/19 07:50 Labs: Abnormal Lab Results - Last 24 Hours (Table) 09/29/19 09/29/19 09/29/19 Range/Units 07:37 07:37 09:53 WBC (3.8-10.6) k/uL RBC (3.80-5.40) m/uL Hgb (11.4-16.0) gm/dL Hct (34.0-46.0) % MCV (80.0-100.0) fL MCHC (31.0-37.0) g/dL RDW (11.5-15.5) % Plt Count 68 L (150-450) k/uL Neutrophils # (Manual) 8.74 H (1.3-7.7) k/uL Lymphocytes # (Manual) 0.28 L (1.0-4.8) k/uL Macrocytosis Chloride (98-107) mmol/L BUN (7-17) mg/dL Creatinine (0.52-1.04) mg/dL Glucose (74-99) mg/dL Calcium (8.4-10.2) mg/dL Iron 17 L (50-170) ug/dL TIBC 162 L (228-460) ug/dL % Saturation 10.49 L (12.00-45.00) Ferritin 584.4 H (10.0-291.0) ng/mL AST (14-36) U/L Total Protein (6.3-8.2) g/dL Albumin (3.5-5.0) g/dL Crossmatch See Detail 09/29/19 09/30/19 09/30/19 Range/Units 18:33 07:50 07:50 WBC 12.9 H 11.6 H (3.8-10.6) k/uL RBC 2.49 L 2.57 L (3.80-5.40) m/uL Hgb 8.2 L D 8.3 L (11.4-16.0) gm/dL Hct 26.1 L 27.1 L (34.0-46.0) % MCV 104.9 H D 105.1 H (80.0-100.0) fL MCHC 30.8 L (31.0-37.0) g/dL RDW 21.6 H 21.0 H (11.5-15.5) % Plt Count 84 L (150-450) k/uL Neutrophils # (Manual) (1.3-7.7) k/uL Lymphocytes # (Manual) (1.0-4.8) k/uL Macrocytosis Marked A Marked A Chloride 109 H (98-107) mmol/L BUN 40 H (7-17) mg/dL Creatinine 2.05 H (0.52-1.04) mg/dL Glucose 117 H (74-99) mg/dL Calcium 7.6 L (8.4-10.2) mg/dL Iron (50-170) ug/dL TIBC (228-460) ug/dL % Saturation (12.00-45.00) Ferritin (10.0-291.0) ng/mL AST 84 H (14-36) U/L Total Protein 5.8 L (6.3-8.2) g/dL Albumin 2.0 L (3.5-5.0) g/dL Crossmatch Microbiology - Last 24 Hours (Table) 09/28/19 17:09 Urine Culture - Final Urine,Voided Assessment and Plan (1) Anemia Narrative/Plan: Multifactorial, anemia from iron deficiency and CKD. Iron studies reviewed, parenteral Iron ordered. DEEDEE already ordered. Dr. Crane discussed case with Nephrology Transfuse for Hgb<7 Current Visit: Yes Status: Chronic Priority: Medium Code(s): D64.9 - ANEMIA, UNSPECIFIED SNOMED Code(s): 849708273 (2) B12 nutritional deficiency Narrative/Plan: Pt should have monthly IM supplement but, has not been out of the hospital long enough to make a f/u appt. Current Visit: Yes Status: Chronic Priority: Medium Code(s): E53.8 - DEFICIENCY OF OTHER SPECIFIED B GROUP VITAMINS SNOMED Code(s): 317861638 (3) Esophageal varices determined by endoscopy Narrative/Plan: Likely source of iron deficiency. Pt has been worked up extensively in the past Current Visit: Yes Status: Chronic Priority: Medium Code(s): I85.00 - E SOPHAGEAL VARICES WITHOUT BLEEDING SNOMED Code(s): 52859430 (4) Iron deficiency anemia due to chronic blood loss Current Visit: Yes Status: Chronic Priority: Medium Code(s): D50.0 - IRON DEFICIENCY ANEMIA SECONDARY TO BLOOD LOSS (CHRONIC) SNOMED Code(s): 955165690 (5) History of uterine cancer Narrative/Plan: Last disease monitoring f/u scan was 09/04/19, JAROD. F/U scans in 6 mo or sooner if symptomatic. Current Visit: No Status: Chronic Priority: Low Code(s): Z85.42 - PERSONAL HISTORY OF MALIGNANT NEOPLASM OF OTH PRT UTERUS SNOMED Code(s): 228265012 Plan: Attests: I have seen and examined patient, performed H&P, developed impression and plan of care. Discussed with dictator, agree with documentation. Documented as a scribe.
[2019-09-30 10:30] LABS: Eosinophils # (M) 0.12 k/uL (0-0.7); Lymphocytes # (M) 0.46 k/uL (1.0-4.8); Monocytes # (M) 0.46 k/uL (0-1.0); Neutrophils # (M) 10.56 k/uL (1.3-7.7); Neutrophils % (M) 91 %; Nucleated Red Blood Cells 0 /100 WBC (0-0); Total Cells Counted 100
[2019-09-30] MEDS: SODIUM FERRIC GLUCONAT-SUCROSE 125 MG in SODIUM CHLORIDE 0.9% 100 ML IVPB SCH (12:43)
[2019-09-30] MEDS ORDERED: IPRATROPIUM-ALBUTEROL 3 ML NEB INHALATION PRN (14:15)
--- NOTE | 2019-09-30 15:44 | XR ---
EXAMINATION TYPE: XR chest 2V DATE OF EXAM: 09/30/2019 COMPARISON: Prior chest x-ray 09/03/2019, CT chest 09/04/2019 HISTORY: Abnormal chest x-ray TECHNIQUE: Frontal and lateral views of the chest are obtained. FINDINGS: Diffuse prominence of interstitium is again noted. Central venous catheter is again noted, distal tip is overlying the superior vena cava. Aorta is dense. There is no evident pneumothorax pat ient is rotated. Or pleural effusion. Heart is stable. Increased AP diameter chest is noted. IMPRESSION: Diffuse interstitial changes are again noted within the lungs.
[2019-09-30] MEDS: SYMBICORT 160-4.5 MCG INHALER INHALATION SCH ×2 (16:07→20:12)
[2019-09-30] MEDS: IPRATROPIUM-ALBUTEROL 3 ML NEB INHALATION SCH ×2 (16:50→20:12)
--- NOTE | 2019-09-30 17:13 | CONS ---
CONSULTATION REASON FOR CONSULT: Renal failure. HISTORY OF PRESENT ILLNESS: Patient is a 74-year-old female who was admitted to the hospital with complaints of weakness. She also had hip pain and sustained a fall and trauma to the face. Patient has had a previous history of anemia and has been evaluated by Hematology. She has a history of esophageal varices and iron deficiency. The patient denies any prior history of kidney diseases. She is noted to have a creatinine of 2.0 mg/dL. Review of previous labs shows a serum creatinine of about 1.5 to 1.3 in the earlier part of August as well as in December of 2018. Patient's blood pressure is slightly on the lower side. She denies use of any nonsteroidal anti-inflammatory agents at home. Patient is maintained on Lasix. She is also on DARNELL inhibitors, Zestril 20 mg daily at home and in the hospital. PAST MEDICAL HISTORY: Anemia, hypertension, atrial fibrillation, COPD, CVA/TIA, gastroesophageal reflux disease, hyperlipidemia, osteoarthritis, history of uterine cancer, status post chemotherapy 6 years ago, neuropathy, anemia, anxiety, depression. PAST SURGICAL HISTORY: Hysterectomy, tonsillectomy, colonoscopy, EGD, cataract surgery. SOCIAL HISTORY: Positive for smoking. No history of drug abuse or alcohol abuse. MEDICATIONS: Medications at home prior to admission included iron, Aricept, Synthroid, Zyrtec, Lexapro, Namenda, Ultram, Lasix, magnesium, Zaroxolyn, Eliquis, Keflex, gabapentin, Prilosec, potassium, Norvasc, Requip, Inderal, Protonix. ALLERGIES: NONE. REVIEW OF SYSTEMS: As per HPI. Other systems negative. PHYSICAL EXAMINATION: Patient is comfortable, awake, alert, oriented x3, not in any acute distress. Blood pressure is 121/51, heart rate 75 per minute. She is afebrile. EXAMINATION OF THE HEART: S1 and S2. EXAMINATION OF LUNGS: Bilateral breath sounds are heard. ABDOMEN: Soft, non-tender. Examination of lower extremities shows trace edema bilaterally. INFRASTRUCTURE DESIGN ENGINEER exam is grossly intact. LABS: Labs show hemoglobin 8.3, sodium 137, potassium 4.1, chloride 109. CO2 is 24, BUN 40, creatinine 2.0. UA shows trace blood, no protein, large leukocyte esterase, WBCs 113. Urine culture showed no growth; mostly skin kirk. ASSESSMENT: 1. Chronic kidney disease, NKF stage 3B, with previous creatinine at 1.1 to 1.4 mg/dL all the way back to 2019. Etiology is nephrosclerosis. Patient has had multiple episodes of acute kidney injury and at this time she is also likely having an acute kidney injury associated with hypotension, hypoperfusion. Her blood pressure is on the lower side and she had significant anemia on initial admission. I will decrease the dose of Zestril to 10 mg daily. 2. Anemia with iron deficiency as well as a component of anemia of chronic disease as well. Patient will be started on Aranesp/Procrit after the iron is complete. 3. Hypokalemia, maintained on potassium supplementation. 4. History of cerebrovascular accident and transient ischemic attack. 5. Severe anemia on admission, status post packed RBCs. Currently receiving IV iron. PLAN: Decrease Zestril. Follow up as outpatient for CKD. Start Aranesp/Procrit after the IV iron is complete. Avoid nephrotoxic agents. Discussed with the patient. Thank you for this consultation. Will continue to follow the patient with you during her hospitalization. MMKRISHANL / IJN: [id number] /
[2019-09-30] MEDS: DONEPEZIL 10 MG TAB PO SCH (21:01)
[2019-09-30] MEDS: MEMANTINE 5 MG TAB PO SCH (21:43)
--- NOTE | 2019-09-30 23:15 | PN ---
PROGRESS NOTE DATE OF SERVICE: 09/30/2019 REASON FOR FOLLOWUP: Urinary tract infection. INTERVAL HISTORY: The patient is currently afebrile. She has been breathing comfortably. Denies having any chest pain or shortness of breath. Occasional cough. No abdominal pain or diarrhea. PHYSICAL EXAMINATION: Blood pressure 108/56, pulse of 72, temperature 98.7. She is 95% on 2 L nasal cannula. General description is an elderly female lying in bed in no distress. RESPIRATORY SYSTEM: Unlabored breathing. Clear to auscultation anteriorly. HEART: S1, S2. Regular rate and rhythm. ABDOMEN: Soft. No tenderness. LABS: Hemoglobin 8.3, white count 11.6. Urine culture currently pending. DIAGNOSTIC IMPRESSION AND PLAN: Patient admitted to hospital with fall and weakness with concern for a urinary tract infection in this patient who did have a positive UA. Though cultures are currently pending, continue with Rocephin along with gentle hydration and continue with supportive care. MMODL / IJN: [id number] /
[2019-10-01] MEDS: LEVOTHYROXINE 25 MCG TAB PO SCH (05:39)
[2019-10-01] MEDS: IPRATROPIUM-ALBUTEROL 3 ML NEB INHALATION SCH ×3 (07:08→15:18)
[2019-10-01] MEDS: SYMBICORT 160-4.5 MCG INHALER INHALATION SCH (07:08)
[2019-10-01 07:46] LABS: Anisocytosis Moderate; HCT 26.7 % (34.0-46.0); HGB 8.4 gm/dL (11.4-16.0); Hypochromasia Marked; MCH 33.2 pg (25.0-35.0); MCHC 31.4 g/dL (31.0-37.0); MCV 105.8 fL (80.0-100.0); Macrocytosis Marked; Mean Platelet Volume 11.3; Poikilocytosis Slight; RBC 2.53 m/uL (3.80-5.40); RDW 20.4 % (11.5-15.5); WBC 10.1 k/uL (3.8-10.6)
[2019-10-01 07:49] LABS: Platelet Count 56 k/uL (150-450)
[2019-10-01 07:55] LABS: Calcium 7.8 mg/dL (8.4-10.2); Potassium 3.6 mmol/L (3.5-5.1); Total Bilirubin 0.7 mg/dL (0.2-1.3); Total Protein 5.9 g/dL (6.3-8.2)
[2019-10-01 08:21] LABS: Nucleated Red Blood Cells 0 /100 WBC (0-0)
[2019-10-01 08:22] LABS: Neutrophils # (M) 9.49 k/uL (1.3-7.7); Neutrophils % (M) 94 %; Total Cells Counted 200
[2019-10-01] MEDS: LACTULOSE 20 GM/30 ML CUP PO SCH (09:48)
[2019-10-01] MEDS: LISINOPRIL 10 MG TAB PO SCH ×2 (09:48→09:49)
[2019-10-01] MEDS: GABAPENTIN 400 MG CAP PO SCH ×2 (09:48→16:01)
[2019-10-01] MEDS: POTASSIUM CHLORIDE ER 20 MEQ TAB.ER PO SCH (09:48)
[2019-10-01] MEDS: amLODIPine 10 MG TAB PO SCH ×2 (09:48→09:50)
[2019-10-01] MEDS: PANTOPRAZOLE 40 MG TABLET PO SCH (09:49)
[2019-10-01] MEDS: FERROUS SULFATE 325 MG TAB PO SCH ×2 (09:49→09:51)
[2019-10-01] MEDS: ESCITALOPRAM 10 MG TAB PO SCH (09:49)
[2019-10-01] MEDS: MAGNESIUM OXIDE 400 MG TAB PO SCH (09:49)
[2019-10-01] MEDS: FUROSEMIDE 40 MG TAB PO SCH (09:50)
[2019-10-01] MEDS: LORATADINE 10 MG TAB PO SCH (09:51)
[2019-10-01] MEDS: PROPRANOLOL 10 MG TAB PO SCH ×2 (09:52→16:01)
[2019-10-01] MEDS: SODIUM FERRIC GLUCONAT-SUCROSE 125 MG in SODIUM CHLORIDE 0.9% 100 ML IVPB SCH (09:52)
[2019-10-01] MEDS: MEMANTINE 5 MG TAB PO SCH (09:52)
--- NOTE | 2019-10-01 12:17 | PN ---
PROGRESS NOTE Patient is seen for followup for acute kidney injury on top of chronic kidney disease. The patient was admitted for severe anemia. She does not have any active bleeding. She was noted to be iron deficient. She is followed by Hematology. Currently maintained on iron supplementation. Serum creatinine has been mostly around 2-1.9 mg/dL this admission. Previous readings have been around 1.3-1.4 with lowest reading of 1.0 on 08/18/2019. Blood pressure had been on the lower side with systolic around 110-108 mmHg and Zestril was decreased yesterday to 10 mg from 20 mg daily. On examination today, patient is comfortable, awake, not in any acute distress. Blood pressure 117/59, heart rate 70 per minute, she is afebrile. Examination of the heart S1, S2. Examination of the lungs: Decreased breath sounds at bases. Abdomen is soft, nontender, obese. Examination lower extremities: Chronic skin changes, edema trace bilaterally. RADIO INTERFERENCE EXPERT exam grossly intact. Labs show hemoglobin 8.4, sodium 136, potassium 3.6, chloride 108, BUN 36, serum creatinine 1.93. ASSESSMENT: 1. Acute kidney injury prerenal associated with some degree of hypoperfusion status post decreased dose of Zestril. I will decrease it further to 5 mg daily as blood pressure remains on the lower side. 2. Chronic kidney disease stage 3 baseline creatinine anywhere from 1.5-1.0 mg/dL. However, mostly staying about 1.3-1.4 mg/dL. Etiology is nephrosclerosis. UA shows no evidence of proteinuria. 3. Pyuria with urine culture showing no growth, mostly skin kirk. 4. Anemia with no active bleeding noted. Severe iron deficiency noted. Currently maintained on IV iron supplementation with plans to add erythrocyte stimulating agent down the road as patient does have chronic kidney disease. PLAN: Decrease Zestril further to 5 mg daily. Repeat labs in a.m. Follow up as outpatient for CKD. MMODL / IJN: [id number] /
[2019-10-01 12:53] VITALS: BP 116/52; RESP 19; TEMP 97.9
--- NOTE | 2019-10-01 13:55 | P.DS ---
Providers Date of admission: 09/28/19 19:30 Expected date of discharge: 10/01/19 Attending physician: Bebeto Davila Consults: 09/28/19 19:30 Consult Physician Urgent Consulting Provider: Shamir Null Consult Reason/Comments: Urinary tract infection Do you want consulting provider notified?: Yes 09/28/19 22:34 Consult Physician Routine Consulting Provider: Fly Crane Consult Reason/Comments: anemia Do you want consulting provider notified?: Yes 09/30/19 09:54 Consult Physician Routine Consulting Provider: Iesha Moseley Consult Reason/Comments: CKD Do you want consulting provider notified?: Already Contacted Primary care physician: [facility] Hospital Course: Generalized weakness, status post fall, multifactorial chronic GI bleed, in a patient with history of AV malformation ,esophageal varices, banding . Recent repeat EGD, colonoscopy and capsule study.multiple nonbleeding small bowel angietasia scattered throughout the bowel, suspected to be the cause of the bleeding with no anticoagulation recommended. Acute on chronic symptomatic blood loss anemia in a patient who recently was taken off of Eliquis, secondary to the above, iron deficient, status post transfusion packed RBCs Acute renal failure, prerenal Chronic kidney disease stage III mild portal hypertensive gastropathy, small hiatal hernia Advanced COPD, stable Chronic atrial fibrillation, paroxysmal Essential tremors Thrombocytopenia History of Left great toe wound with foreign body per x-ray, orthopedic surgery following Coccyx wound stage II. Gastroesophageal reflux disease Hepatic cirrhosis Generalized weakness, in a patient with history of chemotherapy induced peripheral neuropathy History of uterine cancer Possible B12 deficiency Ongoing nicotine dependence Chronic CHF, diastolic dysfunction Hypoalbuminemia with moderate protein calorie malnutrition Restless leg syndrome Hypothyroidism Hospital course:This a 74-year-old female recent GI bleed, history of esophageal varices with banding, generalized weakness and multiple other medical issues admitted with generalized weakness, status post fall, UTI, anemia and multiple other medical issues. Evaluated by infectious disease, nephrology, oncology/hematology. Maintained on gentle IV fluid hydration, IV antibiotics, received packed RBCs, IV iron supplementation. Significant clinical improve ment. Patient will be discharged home today in a stable condition with guarded prognosis pending final DC recommendations, DC antibiotics as per infectious disease. Eliquis has been on hold since prior admission. The impression and plan of care has been dictated as directed. : I performed a history and examination of this patient, discussed the same with the dictator. I agree with the dictator's note ,documented as a scribe. Any additional findings or plans will be noted. Patient Condition at Discharge: Stable Plan - Discharge Summary Discharge Rx Participant: No New Discharge Prescriptions: New Lactulose [Cephulac] 20 gm PO BID #480 ml Budesonide-Formot 160-4.5 Mcg [Symbicort 160-4.5 Mcg Inhaler] 2 puff INHALATION RT-BID #1 inh Lisinopril [Zestril] 5 mg PO DAILY #30 tab Continue Ferrous Sulfate [Feosol] 325 mg PO BID Levothyroxine Sodium [Synthroid] 25 mcg PO DAILY Donepezil [Aricept] 10 mg PO HS Memantine [Namenda] 10 mg PO BID Escitalopram [Lexapro] 10 mg PO DAILY Cetirizine HCl [Zyrtec] 10 mg PO DAILY SILVER sulfADIAZINE Cream [Silvadene 1% Cream] 1 applic TOPICAL BID Propranolol [Inderal] 10 mg PO TID #90 tab traMADol HCl [Ultram] 50 mg PO BID PRN PRN Reason: Pain Furosemide [Lasix] 40 mg PO DAILY Magnesium Oxide [Magox 400] 400 mg PO DAILY Pantoprazole Sodium [Protonix] 40 mg PO BID #60 tablet.dr Furosemide [Lasix] 20 mg PO HS rOPINIRole HCL [Requip] 0.5 mg PO HS Potassium Chloride ER [K-Dur 20] 20 meq PO BID amLODIPine [Norvasc] 10 mg PO DAILY Vitamin B Complex 1 cap PO DAILY Omeprazole [PriLOSEC] 40 mg PO DAILY Loperamide [Imodium] 2 - 4 mg PO Q12H PRN PRN Reason: Loose Stool Gabapentin 800 mg PO TID Discontinued Lisinopril [Zestril] 20 mg PO DAILY #90 tab Metolazone [Zaroxolyn] 2.5 mg PO DAILY Apixaban [Eliquis] 5 mg PO BID Discharge Medication List Ferrous Sulfate [Feosol] 325 mg PO BID 10/29/16 [History] Donepezil [Aricept] 10 mg PO HS 11/07/17 [History] Levothyroxine Sodium [Synthroid] 25 mcg PO DAILY 11/07/17 [History] Cetirizine HCl [Zyrtec] 10 mg PO DAILY 01/14/19 [History] Escitalopram [Lexapro] 10 mg PO DAILY 01/14/19 [History] Memantine [Namenda] 10 mg PO BID 01/14/19 [History] SILVER sulfADIAZINE Cream [Silvadene 1% Cream] 1 applic TOPICAL BID 06/28/19 [History] Propranolol [Inderal] 10 mg PO TID #90 tab 06/30/19 [Rx] traMADol HCl [Ultram] 50 mg PO BID PRN 07/21/19 [History] Furosemide [Lasix] 40 mg PO DAILY 09/14/19 [History] Magnesium Oxide [Magox 400] 400 mg PO DAILY 09/14/19 [History] Pantoprazole Sodium [Protonix] 40 mg PO BID #60 tablet. 09/18/19 [Rx] Furosemide [Lasix] 20 mg PO HS 09/28/19 [History] Gabapentin 800 mg PO TID 09/28/19 [History] Loperamide [Imodium] 2 - 4 mg PO Q12H PRN 09/28/19 [History] Omeprazole [PriLOSEC] 40 mg PO DAILY 09/28/19 [History] Potassium Chloride ER [K-Dur 20] 20 meq PO BID 09/28/19 [History] Vitamin B Complex 1 cap PO DAILY 09/28/19 [History] amLODIPine [Norvasc] 10 mg PO DAILY 09/28/19 [History] rOPINIRole HCL [Requip] 0.5 mg PO HS 09/28/19 [History] Budesonide-Formot 160-4.5 Mcg [Symbicort 160-4.5 Mcg Inhaler] 2 puff INHALATION RT-BID #1 inh 10/01/19 [Rx] Lactulose [Cephulac] 20 gm PO BID #480 ml 10/01/19 [Rx] Lisinopril [Zestril] 5 mg PO DAILY #30 tab 10/01/19 [Rx] Follow up Appointment(s)/Referral(s): Fyl Crane MD [STAFF PHYSICIAN] - 1 Week Iesha Moseley MD [STAFF PHYSICIAN] - 1 Week Bebeto Davila MD [Primary Care Provider] - 10/05/19 Activity/Diet/Wound Care/Special Instructions: Ferrlecit 125 mg IV piggyback weekly, case management to arrange. Clar ification: Epogen to be added on at a later date as per nephrology. Eliquis remains on hold.
--- NOTE | 2019-10-01 15:19 | P.PN ---
Subjective Progress Note Date: 10/01/19 Principal diagnosis: Pain after trauma, anemia In f/u today pt has no new c/o. Objective - Vital Signs Vital signs: Vital Signs Temp 97.9 F 10/01/19 12:52 Pulse 73 10/01/19 12:52 Resp 19 10/01/19 12:52 BP 116/52 10/01/19 12:52 Pulse Ox 94 L 10/01/19 12:52 Intake & Output 09/30/19 10/01/19 10/01/19 18:59 06:59 18:59 Intake Total 590 Balance 590 Intake: Oral 590 Other: Voiding Method Diaper Diaper Diaper Incontinent Incontinent # Voids 5 3 1 # Bowel Movements 4 2 1 - Constitutional General appearance: Present: average body habitus, no acute distress - EENT Eyes: Present: anicteric sclerae, EOMI ENT: Present: hearing grossly normal - Respiratory Details: resp even and unlabored - Cardiovascular Details: skin warm and dry to touch - Peripheral edema leg Peripheral Edema: bilateral: None - Neurologic Neurologic: Present: CNII-XII intact - Musculoskeletal Musculoskeletal: Present: generalized weakness, strength equal bilaterally - Psychiatric Psychiatric: Present: A&O x's 3, appropriate affect, intact judgment & insight - Labs CBC & Chem 7: 10/01/19 07:21 10/01/19 07:21 Labs: Abnormal Lab Results - Last 24 Hours (Table) 10/01/19 10/01/19 Range/Units 07:21 07:21 RBC 2.53 L (3.80-5.40) m/uL Hgb 8.4 L (11.4-16.0) gm/dL Hct 26.7 L (34.0-46.0) % MCV 105.8 H (80.0-100.0) fL RDW 20.4 H (11.5-15.5) % Plt Count 56 L (150-450) k/uL Neutrophils # (Manual) 9.49 H (1.3-7.7) k/uL Lymphocytes # (Manual) 0.30 L (1.0-4.8) k/uL Macrocytosis Marked A Sodium 136 L (137-145) mmol/L Chloride 108 H (98-107) mmol/L BUN 36 H (7-17) mg/dL Creatinine 1.93 H (0.52-1.04) mg/dL Glucose 107 H (74-99) mg/dL Calcium 7.8 L (8.4-10.2) mg/dL AST 56 H (14-36) U/L Total Protein 5.9 L (6.3-8.2) g/dL Albumin 2.0 L (3.5-5.0) g/dL Assessment and Plan (1) Anemia Narrative/Plan: Multifactorial, anemia from iron deficiency, B12 deficient and CKD. Iron studies reviewed, parenteral Iron ordered. DEEDEE already ordered. Plan is to continue outpatient. F/U sched. Pt verbalized understanding importance of f/u. Transfuse for Hgb<7 Current Visit: Yes Status: Chronic Priority: Medium Code(s): D64.9 - ANEMIA, UNSPECIFIED SNOMED Code(s): 594110634 (2) B12 nutritional deficiency Narrative/Plan: Pt should have monthly IM supplement but, has not been out of the hospital long enough to make a f/u appt. B12 given, f/u [address] Crane to continue Current Visit: Yes Status: Chronic Priority: Medium Code(s): E53.8 - DEFICIENCY OF OTHER SPECIFIED B GROUP VITAMINS SNOMED Code(s): 926417670 (3) Esophageal varices determined by endoscopy Narrative/Plan: Likely source of iron deficiency. Pt has been worked up extensively in the past Current Visit: Yes Status: Chronic Priority: Medium Code(s): I85.00 - ESOPHAGEAL VARICES WITHOUT BLEEDING SNOMED Code(s): 98254194 (4) Iron deficiency anemia due to chronic blood loss Narrative/Plan: Parenteral iron given Current Visit: Yes Status: Chronic Priority: Medium Code(s): D50.0 - IRON DEFICIENCY ANEMIA SECONDARY TO BLOOD LOSS (CHRONIC) SNOMED Code(s): 781180595 (5) History of uterine cancer Narrative/Plan: Last disease monitoring f/u scan was 09/04/19, JAROD. F/U scans in 6 mo or sooner if symptomatic. Current Visit: No Status: Chronic Priority: Low Code(s): Z85.42 - PERSONAL HISTORY OF MALIGNANT NEOPLASM OF OTH PRT UTERUS SNOMED Code(s): 686015956
[2019-10-01 15:20] VITALS: PULSE 76
--- NOTE | 2019-10-01 16:11 | PN ---
PROGRESS NOTE DATE OF SERVICE: 10/01/2019 REASON FOR FOLLOWUP: 1. Possible urinary tract infection. 2. Diarrhea, possibly laxative-induced. INTERVAL HISTORY: The patient is currently afebrile. The patient is feeling better, breathing comfortably. She is still complaining of multiple loose stools. No chest pain or cough and no abdominal pain or any significant urinary symptoms. PHYSICAL EXAMINATION: Blood pressure 116/52 with a pulse of 76, temperature 97.9. She is 94% on 2 L nasal cannula. General description is an elderly female up in the chair in no distress. RESPIRATORY SYSTEM: Unlabored breathing. Clear to auscultation anteriorly. HEART: S1, S2. Regular rate and rhythm. ABDOMEN: Soft. No tenderness. EXTREMITIES: No edema of the feet. LABS: Hemoglobin 8.4, white count 10.1, creatinine 1.93. DIAGNOSTIC IMPRESSION AND PLAN: 1. Patient admitted to hospital with generalized weakness, falls, with concern for possible urinary tract infection, as the patient did have positive UA, though cultures came back negative. We will discontinue her Rocephin. 2. Diarrhea, possibly laxative-induced. Lactulose has been discontinued and we will see response to it. Discussed with the nurse taking care of the patient. MMODL / IJN: [id number] /
[2019-10-01] MEDS ORDERED: CHOLESTYRAMINE (WITH SUGAR) 4 GM PACKET PO SCH (18:00)
[2019-10-02] MEDS ORDERED: LISINOPRIL 5 MG TAB PO SCH (09:00)
--- NOTE | 2019-10-05 10:46 | CDI ---
Documentation Clarification Form Date: 10/05/19 From: Prabha Winston Phone: If you have a question about this query, please contact Jami Buckley, Television Cable Installer at [phone] between 8am and 5pm. Admit Date: 09/28/19 Discharge Date: 10/01/19 Patient Name: ARELY CASAREZ Visit Number: [id number] ATTENTION: The Clinical Documentation Specialists (CDI) and [facility] Coding Staff appreciate your assistance in clarifying documentation. Please respond to the clarification below the line at the bottom and electronically sign. The CDI & [facility] Coding staff will review the response and follow-up if needed. Please note: Queries are made part of the Legal Health Record. If you have any questions, please contact the author of this message via ITS. Dear Dr. Bebeto Davila, Coccyx wound Stage II is documented in the discharge summary. Nursing assessment of wound - coccyx-present on admission, pressure injury -no, Type i no skin loss, erythema, granulation quality - red Patient history/risk factors: HTN w chronic diastolic CHF w CKD Stage 3, anemia of chronic disease, iron deficiency anemia, thrombocytopenia, PAF, COPD, mod PCM Clinical Indicators: see above Labs: Total Protein: Creatine Kinase: 1423; 6.1, 5.3, 5.8, 5.9; Albumin: 2.1, 1.8, 2.0, 2.0 Wound assessment: see above In your professional opinion, can the etiology and severity of the wound be further specified as one of the following? Etiology Non-pressure chronic ulcer due to diabetes Non-pressure chronic ulcer due to arterial insufficiency Non-pressure chronic ulcer due to venous insufficiency Non-pressure chronic ulcer due to trauma Other, Please specify Unable to determine POA Yes No MTDD
--- NOTE | 2019-10-05 10:55 | CDI ---
Documentation Clarification Form Date: 10/05/19 From: Prabha Winston Phone: If you have a question about this query, please contact Jami Buckley, Fitness Floor Attendant at [phone] between 8am and 5pm. Admit Date: 09/28/19 Discharge Date: 10/01/19 Patient Name: ARELY CASAREZ Visit Number: [id number] ATTENTION: The Clinical Documentation Specialists (CDI) and [facility] Coding Staff appreciate your assistance in clarifying documentation. Please respond to the clarification below the line at the bottom and electronically sign. The CDI & [facility] Coding staff will review the response and follow-up if needed. Please note: Queries are made part of the Legal Health Record. If you have any questions, please contact the author of this message via ITS. Dear Dr. Bebeto Davila, The patients principal diagnosis has not been clearly identified and requires clarification. She presented with weakness. initially thought to be due to UTI, she did have a positive UA though the cultures came back negative. History/Risk factors: ISAEL, HTN w chronic diastolic CHF w CKD Stage 3, anemia of chronic disease, iron deficiency anemia, thrombocytopenia, PAF, COPD, mod PCM, stage 2 coccyx wound, hypokalemia, hypnatremia Clinical Indicators: This is a 74-year-old white female with generalized weakness and fall for one day, fell off the bed, nightstand, hit head.Denies any headache, loss of consciousness.She has generalized weakness and no energy. Some pain in the right hip area. Lab findings: Hgb on 09/27-7.2 on 09/28 dropped to 6.4 Vital Signs: T-98.2, P-71, R-14, BP-121/98, O2-93 Treatment: One unit of PRBC In your professional opinion, can you please clarify the cause of the weakness, after study, accounted for the patients presenting symptoms and was the reason chiefly responsible for the admission? MTDD
--- NOTE | 2019-10-08 00:32 | DS ---
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 MMODL / IJN: [id number] /
--- NOTE | 2019-10-08 09:36 | CDI ---
Documentation Clarification Form Date: 10/05/19 From: Prabha Winston Phone: If you have a question about this query, please contact Jami Buckley, Crm Technical Lead at [phone] between 8am and 5pm. Admit Date: 09/28/19 Discharge Date: 10/01/19 Patient Name: ARELY CASAREZ Visit Number: [id number] ATTENTION: The Clinical Documentation Specialists (CDI) and [facility] Coding Staff appreciate your assistance in clarifying documentation. Please respond to the clarification below the line at the bottom and electronically sign. The CDI & [facility] Coding staff will review the response and follow-up if needed. Please note: Queries are made part of the Legal Health Record. If you have any questions, please contact the author of this message via ITS. Dear Dr. Bebeto Davila, The patients principal diagnosis has not been clearly identified and requires clarification. She presented with weakness. initially thought to be due to UTI, she did have a positive UA though the cultures came back negative. History/Risk factors: ISAEL, HTN w chronic diastolic CHF w CKD Stage 3, anemia of chronic disease, iron deficiency anemia, thrombocytopenia, PAF, COPD, mod PCM, stage 2 coccyx wound, hypokalemia, hypnatremia Clinical Indicators: This is a 74-year-old white female with generalized weakness and fall for one day, fell off the bed, nightstand, hit head.Denies any headache, loss of consciousness.She has generalized weakness and no energy. Some pain in the right hip area. Lab findings: Hgb on 09/27-7.2 on 09/28 dropped to 6.4 Vital Signs: T-98.2, P-71, R-14, BP-121/98, O2-93 Treatment: One unit of PRBC In your professional opinion, can you please clarify the cause of the weakness, after study, accounted for the patients presenting symptoms and was the reason chiefly responsible for the admission? Urinary tract infection Iron deficiency anemia due to chronic blood loss Anemia in CKD Other, please specify MTDD
--- NOTE | 2019-10-09 17:10 | DS ---
DISCHARGE SUMMARY ADDENDUM: Please add to the discharge summary - Iron deficiency anemia is due to chronic blood loss and UTI. MMODL / IJN: [id number] /
== END 2019-10-01 16:59 | DRG 690 ==
LOC: EC 14:02 → 5NMEDONC 19:30
PROVIDERS: ADMIT Family Medicine; ATTEND Family Medicine
PROC: 30233N1 Transfusion of Nonautologous Red Blood Cells into Peripheral Vein, Percutaneous Approach (ICD-10-PCS; principal; 2019-09-29)
DX: N39.0 Urinary tract infection, site not specified (principal); I13.0 Hypertensive heart and chronic kidney disease with heart failure and stage 1 through stage 4 chronic kidney disease, or unspecified chronic kidney disease; I50.32 Chronic diastolic (congestive) heart failure; I85.00 Esophageal varices without bleeding; N17.9 Acute kidney failure, unspecified; E44.0 Moderate protein-calorie malnutrition; K76.6 Portal hypertension; K52.1 Toxic gastroenteritis and colitis; D50.0 Iron deficiency anemia secondary to blood loss (chronic); D69.6 Thrombocytopenia, unspecified; G62.0 Drug-induced polyneuropathy; D63.1 Anemia in chronic kidney disease; I95.9 Hypotension, unspecified; L98.419 Non-pressure chronic ulcer of buttock with unspecified severity; K74.60 Unspecified cirrhosis of liver; N18.3 Chronic kidney disease, stage 3 (moderate); I48.0 Paroxysmal atrial fibrillation; J44.9 Chronic obstructive pulmonary disease, unspecified; R53.1 Weakness; E87.6 Hypokalemia; T45.1X5A Adverse effect of antineoplastic and immunosuppressive drugs, initial encounter; K31.819 Angiodysplasia of stomach and duodenum without bleeding; E53.8 Deficiency of other specified B group vitamins; Z11.59 Encounter for screening for other viral diseases; T47.4X5A Adverse effect of other laxatives, initial encounter; E03.9 Hypothyroidism, unspecified; G25.81 Restless legs syndrome; G25.0 Essential tremor; K31.89 Other diseases of stomach and duodenum; K44.9 Diaphragmatic hernia without obstruction or gangrene; M25.551 Pain in right hip; E78.5 Hyperlipidemia, unspecified; F32.9 Major depressive disorder, single episode, unspecified; F41.9 Anxiety disorder, unspecified; K21.9 Gastro-esophageal reflux disease without esophagitis; M19.90 Unspecified osteoarthritis, unspecified site; E66.9 Obesity, unspecified; F17.210 Nicotine dependence, cigarettes, uncomplicated; Z79.01 Long term (current) use of anticoagulants; Z79.890 Hormone replacement therapy; Z79.899 Other long term (current) drug therapy; W06.XXXA Fall from bed, initial encounter; Z85.42 Personal history of malignant neoplasm of other parts of uterus; Z90.710 Acquired absence of both cervix and uterus; Z98.890 Other specified postprocedural states; Z92.21 Personal history of antineoplastic chemotherapy; Z86.73 Personal history of transient ischemic attack (TIA), and cerebral infarction without residual deficits; Z90.89 Acquired absence of other organs; Z98.42 Cataract extraction status, left eye; Z98.41 Cataract extraction status, right eye; Z80.9 Family history of malignant neoplasm, unspecified
CPT/HCPCS: 36415; 70450; 70480; 71046; 72125; 73502; 80053; 81001; 82140; 82550; 82668; 82728; 83540; 83550; 83605; 85025; 85027; 86850; 86870; 86880; 86900; 86901; 86920; 87086; 93005; 94640; 94760; 96360; 96361; 96374; 99285

== ENCOUNTER 2019-10-21 22:56 | Inpatient (IN) | payer MEDICARE ==
--- NOTE | 2019-10-21 23:28 | ED ---
Altered Mental Status HPI - General Chief Complaint: Altered Mental Status Stated Complaint: altered mental status Time Seen by Provider: 10/21/19 22:59 Source: patient, EMS Mode of arrival: EMS Limitations: altered mental status - History of Present Illness Initial Comments: This patient is a 74-year-old woman with some underlying dementia who is sent from [facility] after she was less responsive than she usually is. When I interview the patient, she is denying complaints. MD Complaint: altered mental status Onset/Timin -: days(s) Severity: mild Consistency of Symptoms: waxing and waning Associated Symptoms: denies other symptoms - Related Data Home Medications Medication Instructions Recorded Confirmed Ferrous Sulfate [Feosol] 325 mg PO BID@0800,169910/29/16 10/21/19 Donepezil [Aricept] 10 mg PO HS@209911/07/17 10/21/19 Levothyroxine Sodium [Synthroid] 25 mcg PO DAILY@0600 11/07/17 10/21/19 Cetirizine HCl [Zyrtec] 10 mg PO DAILY@0801/14/19 10/21/19 Escitalopram [Lexapro] 10 mg PO DAILY@0800 01/14/19 10/21/19 Memantine [Namenda] 10 mg PO BID@0800,169901/14/19 10/21/19 Furosemide [Lasix] 40 mg PO DAILY@0809/14/19 10/21/19 Magnesium Oxide [Magox 400] 400 mg PO DAILY@169909/14/19 10/21/19 Loperamide [Imodium] 2 mg PO Q12H PRN 09/28/19 10/21/19 Potassium Chloride ER [K-Dur 20] 20 meq PO BID@0800,169909/28/19 10/21/19 Vitamin B Complex 1 cap PO DAILY@169909/28/19 10/21/19 rOPINIRole HCL [Requip] 0.5 mg PO HS@209909/28/19 10/21/19 Acetaminophen [Acetaminophen 8 650 mg PO Q4H PRN 10/21/19 10/21/19 Hour] Budesonide-Formot 160-4.5 Mcg 2 puff INHALATION RT-BID@0800,169910/21/19 10/21/19 [Symbicort 160-4.5 Mcg Inhaler] Cholestyramine/Aspartame 4 gm PO DAILY@169910/21/19 10/21/19 [Cholestyramine Light Packet] Darbepoetin Chilo [Aranesp] 40 mcg IJ TH@169910/21/19 10/21/19 Diphenoxylate HCl/Atropine 1 tab PO Q6H 10/21/19 10/21/19 [Lomotil 2.5-0.025 mg Tablet] Gabapentin 800 mg PO TID@0600,1400,2200 10/21/19 10/21/19 Levofloxacin [Levaquin] 250 mg PO DAILY@2100 10/21/19 10/21/19 Liquacel 30 ml PO BID@0800,169910/21/19 10/21/19 Magic Butt Paste 1 applic TOPICAL BID@0800,199910/21/19 10/21/19 Magnesium Hydroxide [Milk of 7,200 mg PO DAILY PRN 10/21/19 10/21/19 Magnesia Concentrate] Na Phos,M-B/Na Phos,Di-Ba [Fleet 133 ml RECTAL DAILY PRN 10/21/19 10/21/19 Adult] Nystatin/Triamcin 1 applicate TOPICAL BID 10/21/19 10/21/19 [Nystatin-Triamcinolone Cream] Omeprazole 40 mg PO DAILY@0610/21/19 10/21/19 Pantoprazole Sodium [Protonix] 40 mg PO BID@0800,169910/21/19 10/21/19 Propranolol [Inderal] 10 mg PO TID@0800,1200,169910/21/19 10/21/19 Saccharomyces Boulardii 250 mg PO DAILY@169910/21/19 10/21/19 amLODIPine [Norvasc] 5 mg PO DAILY@0810/21/19 10/21/19 bisacodyL [Dulcolax] 10 mg RECTAL DAILY PRN 10/21/19 10/21/19 Previous Rx's Medication Instructions Recorded traMADol HCl [Ultram] 50 mg PO BID PRN #6 tab 10/01/19 Allergies Allergy/AdvReac Type Severity Reaction Status Date / Time No Known Allergies Allergy Verified 10/21/19 23:38 Review of Systems ROS Statement: Those systems with pertinent positive or pertinent negative responses have been documented in the HPI. ROS Other: All systems not noted in ROS Statement are negative. Limitations: ROS unobtainable due to patients medical condition Constitutional: Reports: weakness. Denies: fever, chills Respiratory: Denies: cough, dyspnea Cardiovascular: Denies: chest pain, palpitations, syncope Gastrointestinal: Denies: abdominal pain, vomiting, diarrhea Genitourinary: Denies: dysuria Musculoskeletal: Denies: back pain Skin: Denies: rash Neurological: Reports: weakness. Denies: headache Past Medical History Past Medical History: Atrial Fibrillation, Cancer, Heart Failure, COPD, CVA/TIA, GERD/Reflux, GI Bleed, Hyperlipidemia, Hypertension, Osteoarthritis (OA) Additional Past Medical History / Comment(s): hx. uterine cancer, chemo 6 years ago, TIA several yrs. ago-forgetful, neuropathy feet & legs & hands, ANEMIA History of Any Multi-Drug Resistant Organisms: None Reported Past Surgical History: Hysterectomy, Tonsillectomy Additional Past Surgical History / Comment(s): COLONOSCOPY. EGD. BILAT CATARACTS REMOVED Past Anesthesia/Blood Transfusion Reactions: No Reported Reaction Past Psychological History: Anxiety, Depression Smoking Status: Former smoker Past Alcohol Use History: None Reported Past Drug Use History: None Reported - Past Family History Mother Family Medical History: Cancer Father History Unknown: Yes Family Medical History: Cancer Brother(s) Family Medical History: Cancer General Exam General appearance: alert, in no apparent distress Head exam: Present: atraumatic, normocephalic Eye exam: Present: normal appearance. Absent: scleral icterus, conjunctival injection ENT exam: Present: mucous membranes dry Neck exam: Present: normal inspection, full ROM. Absent: meningismus Respiratory exam: Present: normal lung sounds bilaterally. Absent: respiratory distress, wheezes, rales, rhonchi, stridor Cardiovascular Exam: Present: regular rate, normal rhythm, normal heart sounds. Absent: systolic murmur, diastolic murmur, rubs, gallop GI/Abdominal exam: Present: soft. Absent: distended, tenderness, guarding, rebound Extremities exam: Present: normal inspection, normal capillary refill. Absent: pedal edema, calf tenderness Back exam: Present: normal inspection. Absent: CVA tenderness (R), CVA tenderness (L) Neurological exam: Present: alert. Absent: oriented X3 (Currently oriented to person and recognizes she is in the hospital but not able to state the date), motor sensory deficit Skin exam: Present: warm, dry, intact, normal color. Absent: rash Course Vital Signs 10/21/19 10/22/19 10/22/19 23:04 00:00 02:00 Temperature 97.4 F L Pulse Rate 64 59 L 60 Respiratory 19 16 18 Rate Blood Pressure 107/47 100/48 124/68 O2 Sat by Pulse 96 97 96 Oximetry 10/22/19 10/22/19 04:00 04:54 Temperature 97.7 F Pulse Rate 58 L 57 L Respiratory 16 18 Rate Blood Pressure 106/45 108/49 O2 Sat by Pulse 95 96 Oximetry Medical Decision Making - Medical Decision Making Patient is 74-year-old woman sent from [facility] for altered mental status. Initial workup does reveal presence of some work blood cells in the urine and patient be admitted. Patient reportedly hypotensive at extended care facility, but normotensive during time In emergency department Patient's initial lactic acid negative and the BNP elevated so will hold sepsis bolus - Lab Data Result diagrams: 10/25/19 08:05 10/25/19 08:05 Lab Results 10/21/19 10/21/19 10/21/19 Range/Units 23:29 23:29 23:29 WBC 11.4 H (3.8-10.6) k/uL RBC 2.71 L (3.80-5.40) m/uL Hgb 9.1 L D (11.4-16.0) gm/dL Hct 29.7 L (34.0-46.0) % MCV 109.7 H (80.0-100.0) fL MCH 33.5 (25.0-35.0) pg MCHC 30.6 L (31.0-37.0) g/dL RDW 18.0 H (11.5-15.5) % Plt Count 88 L (150-450) k/uL Neutrophils % (Manual) 93 % Band Neutrophils % 1 % Lymphocytes % (Manual) 2 % Monocytes % (Manual) 3 % Eosinophils % (Manual) 1 % Neutrophils # MOTHER SUPERIOR Neutrophils # (Manual) 10.70 H (1.3-7.7) k/uL Lymphocytes # (Manual) 0.23 L (1.0-4.8) k/uL Monocytes # (Manual) 0.34 (0-1.0) k/uL Eosinophils # (Manual) 0.11 (0-0.7) k/uL Nucleated RBCs 0 (0-0) /100 WBC Manual Slide Review Performed Hypochromasia Marked Poikilocytosis (manual Present Anisocytosis Slight Anisocytosis (manual) Present Macrocytosis Marked A Target Cells Present Rouleaux Present PT 12.0 (9.0-12.0) sec INR 1.2 H (<1.2) APTT 30.9 H (22.0-30.0) sec Sodium 139 (137-145) mmol/L Potassium 5.9 H (3.5-5.1) mmol/L Chloride 115 H (98-107) mmol/L Carbon Dioxide 20 L (22-30) mmol/L Anion Gap 4 mmol/L BUN 68 H (7-17) mg/dL Creatinine 1.95 H (0.52-1.04) mg/dL Est GFR (CKD-EPI)AfAm 28 (>60 ml/min/1.73 sqM) Est GFR (CKD-EPI)NonAf 25 (>60 ml/min/1.73 sqM) Glucose 104 H (74-99) mg/dL Plasma Lactic Acid Gamaliel (0.7-2.0) mmol/L Calcium 8.3 L (8.4-10.2) mg/dL Total Bilirubin 0.6 (0.2-1.3) mg/dL AST 28 (14-36) U/L ALT 12 (4-34) U/L Alkaline Phosphatase 140 H (38-126) U/L Ammonia (<30) umol/L Troponin I (0.000-0.034) ng/mL NT-Pro-B Natriuret Pep pg/mL Total Protein 7.0 (6.3-8.2) g/dL Albumin 2.2 L (3.5-5.0) g/dL Urine Color Urine Appearance (Clear) Urine pH (5.0-8.0) Ur Specific Zeigler (1.001-1.035) Urine Protein (Negative) Urine Glucose (UA) (Negative) Urine Ketones (Negative) Urine Blood (Negative) Urine Nitrite (Negative) Urine Bilirubin (Negative) Urine Urobilinogen (<2.0) mg/dL Ur Leukocyte Esterase (Negative) Urine RBC (0-5) /hpf Urine WBC (0-5) /hpf Urine WBC Clumps (None) /hpf Ur Squamous Epith Cells (0-4) /hpf Urine Bacteria (None) /hpf Hyaline Casts (0-2) /lpf Urine Mucus (None) /hpf Urine Yeast (Budding) (None) /hpf 10/21/19 10/21/19 10/21/19 Range/Units 23:29 23:29 23:29 WBC (3.8-10.6) k/uL RBC (3.80-5.40) m/uL Hgb (11.4-16.0) gm/dL Hct (34.0-46.0) % MCV (80.0-100.0) fL MCH (25.0-35.0) pg MCHC (31.0-37.0) g/dL RDW (11.5-15.5) % Plt Count (150-450) k/uL Neutrophils % (Manual) % Band Neutrophils % % Lymphocytes % (Manual) % Monocytes % (Manual) % Eosinophils % (Manual) % Neutrophils # Neutrophils # (Manual) (1.3-7.7) k/uL Lymphocytes # (Manual) (1.0-4.8) k/uL Monocytes # (Manual) (0-1.0) k/uL Eosinophils # (Manual) (0-0.7) k/uL Nucleated RBCs (0-0) /100 WBC Manual Slide Review Hypochromasia Poikilocytosis (manual Anisocytosis Anisocytosis (manual) Macrocytosis Target Cells Rouleaux PT (9.0-12.0) sec INR (<1.2) APTT (22.0-30.0) sec Sodium (137-145) mmol/L Potassium (3.5-5.1) mmol/L Chloride (98-107) mmol/L Carbon Dioxide (22-30) mmol/L Anion Gap mmol/L BUN (7-17) mg/dL Creatinine (0.52-1.04) mg/dL Est GFR (CKD-EPI)AfAm (>60 ml/min/1.73 sqM) Est GFR (CKD-EPI)NonAf (>60 ml/min/1.73 sqM) Glucose (74-99) mg/dL Plasma Lactic Acid Gamaliel (0.7-2.0) mmol/L Calcium (8.4-10.2) mg/dL Total Bilirubin (0.2-1.3) mg/dL AST (14-36) U/L ALT (4-34) U/L Alkaline Phosphatase (38-126) U/L Ammonia <9 (<30) umol/L Troponin I <0.012 (0.000-0.034) ng/mL NT-Pro-B Natriuret Pep 2650 pg/mL Total Protein (6.3-8.2) g/dL Albumin (3.5-5.0) g/dL Urine Color Urine Appearance (Clear) Urine pH (5.0-8.0) Ur Specific Zeigler (1.001-1.035) Urine Protein (Negative) Urine Glucose (UA) (Negative) Urine Ketones (Negative) Urine Blood (Negative) Urine Nitrite (Negative) Urine Bilirubin (Negative) Urine Urobilinogen (<2.0) mg/dL Ur Leukocyte Esterase (Negative) Urine RBC (0-5) /hpf Urine WBC (0-5) /hpf Urine WBC Clumps (None) /hpf Ur Squamous Epith Cells (0-4) /hpf Urine Bacteria (None) /hpf Hyaline Casts (0-2) /lpf Urine Mucus (None) /hpf Urine Yeast (Budding) (None) /hpf 10/22/19 10/22/19 Range/Units 01:38 02:00 WBC (3.8-10.6) k/uL RBC (3.80-5.40) m/uL Hgb (11.4-16.0) gm/dL Hct (34.0-46.0) % MCV (80.0-100.0) fL MCH (25.0-35.0) pg MCHC (31.0-37.0) g/dL RDW (11.5-15.5) % Plt Count (150-450) k/uL Neutrophils % (Manual) % Band Neutrophils % % Lymphocytes % (Manual) % Monocytes % (Manual) % Eosinophils % (Manual) % Neutrophils # Neutrophils # (Manual) (1.3-7.7) k/uL Lymphocytes # (Manual) (1.0-4.8) k/uL Monocytes # (Manual) (0-1.0) k/uL Eosinophils # (Manual) (0-0.7) k/uL Nucleated RBCs (0-0) /100 WBC Manual Slide Review Hypochromasia Poikilocytosis (manual Anisocytosis Anisocytosis (manual) Macrocytosis Target Cells Rouleaux PT (9.0-12.0) sec INR (<1.2) APTT (22.0-30.0) sec Sodium (137-145) mmol/L Potassium (3.5-5.1) mmol/L Chloride (98-107) mmol/L Carbon Dioxide (22-30) mmol/L Anion Gap mmol/L BUN (7-17) mg/dL Creatinine (0.52-1.04) mg/dL Est GFR (CKD-EPI)AfAm (>60 ml/min/1.73 sqM) Est GFR (CKD-EPI)NonAf (>60 ml/min/1.73 sqM) Glucose (74-99) mg/dL Plasma Lactic Acid Gamaliel 1.3 (0.7-2.0) mmol/L Calcium (8.4-10.2) mg/dL Total Bilirubin (0.2-1.3) mg/dL AST (14-36) U/L ALT (4-34) U/L Alkaline Phosphatase (38-126) U/L Ammonia (<30) umol/L Troponin I (0.000-0.034) ng/mL NT-Pro-B Natriuret Pep pg/mL Total Protein (6.3-8.2) g/dL Albumin (3.5-5.0) g/dL Urine Color Yellow Urine Appearance Cloudy H (Clear) Urine pH 5.0 (5.0-8.0) Ur Specific Zeigler 1.011 (1.001-1.035) Urine Protein Negative (Negative) Urine Glucose (UA) Negative (Negative) Urine Ketones Negative (Negative) Urine Blood Negative (Negative) Urine Nitrite Negative (Negative) Urine Bilirubin Negative (Negative) Urine Urobilinogen <2.0 (<2.0) mg/dL Ur Leukocyte Esterase Large H (Negative) Urine RBC 3 (0-5) /hpf Urine WBC 36 H (0-5) /hpf Urine WBC Clumps Few H (None) /hpf Ur Squamous Epith Cells <1 (0-4) /hpf Urine Bacteria Rare H (None) /hpf Hyaline Casts 1 (0-2) /lpf Urine Mucus Rare H (None) /hpf Urine Yeast (Budding) Few H (None) /hpf - EKG Data -: EKG Interpreted by Me EKG shows normal: sinus rhythm, axis (Normal), intervals (Normal), QRS complexes (Low-voltage QRS complex), ST-T waves (Normal) Rate: normal (Rate 61 bpm) Disposition Clinical Impression: UTI (urinary tract infection), Generalized weakness Disposition: ADMITTED IP TO THIS HOSP
[2019-10-21 23:50] LABS: Albumin 2.2 g/dL (3.5-5.0); Calcium 8.3 mg/dL (8.4-10.2); Potassium 5.9 mmol/L (3.5-5.1); Total Bilirubin 0.6 mg/dL (0.2-1.3)
[2019-10-22 00:01] LABS: INR 1.2 (<1.2); Partial Thromboplastin Time 30.9 sec (22.0-30.0)
[2019-10-22 00:03] LABS: Anisocytosis Slight; HCT 29.7 % (34.0-46.0); Hypochromasia Marked; MCH 33.5 pg (25.0-35.0); MCHC 30.6 g/dL (31.0-37.0); MCV 109.7 fL (80.0-100.0); Macrocytosis Marked; Mean Platelet Volume 11.9; RBC 2.71 m/uL (3.80-5.40); WBC 11.4 k/uL (3.8-10.6)
[2019-10-22 00:07] LABS: HGB 9.1 gm/dL (11.4-16.0)
--- NOTE | 2019-10-22 00:07 | CT ---
EXAMINATION TYPE: CT brain wo con DATE OF EXAM: 10/21/2019 COMPARISON: 09/28/2019 HISTORY: AMS CT DLP: 1142.4 mGycm Automated exposure control for dose reduction was used. Images obtained without contrast. There is 2 cm area of hypodensity at the melara-white matter junction of the right superior temporal lo be. There is no mass effect. There is no midline shift. There is cerebral cortical atrophy. The barron rium is intact. There is no evidence of a posterior fossa mass. IMPRESSION: Cerebral atrophy. Old right temporal lobe infarct unchanged compared to old exam. No acute intracrani al abnormality.
--- NOTE | 2019-10-22 00:09 | XR ---
EXAMINATION TYPE: XR chest 1V portable DATE OF EXAM: 10/21/2019 COMPARISON: 09/03/2019 HISTORY: Altered mental status TECHNIQUE: FINDINGS: There is moderate pulmonary edema. There is bilateral pleural effusions much larger on the left side. There is airspace infiltrate left lower lobe. There are chest leads. IMPRESSION: Pulmonary edema and pulmonary infiltrates could relate to RDS and congestive heart failur e. Abnormalities increased compared to old exam.
[2019-10-22 00:25] LABS: Band Neutrophils % 1 %; Eosinophils # (M) 0.11 k/uL (0-0.7); Lymphocytes # (M) 0.23 k/uL (1.0-4.8); Monocytes # (M) 0.34 k/uL (0-1.0); Neutrophils % (M) 93 %; Nucleated Red Blood Cells 0 /100 WBC (0-0); Total Cells Counted 100
[2019-10-22 00:26] LABS: Anisocytosis (M) Present; Platelet Count 88 k/uL (150-450); Poikilocytosis (M) Present; Rouleaux Present; Target Cells Present
[2019-10-22 01:58] LABS: Appearance,Urine Cloudy (Clear); Bacteria,Urine Rare /hpf; Bilirubin,Urine Negative (Negative); Blood,Urine Negative (Negative); Budding Yeast,Urine Few /hpf; Color,Urine Yellow; Glucose,Urine (UA) Negative (Negative); Hyaline Casts,Urine 1 /lpf (0-2); Ketones,Urine Negative (Negative); Leukocyte Esterase,Urine Large (Negative); Mucus,Urine Rare /hpf; Nitrite,Urine Negative (Negative); Protein,Urine Negative (Negative); RBC,Urine 3 /hpf (0-5); Specific Gravity,Urine 1.011 (1.001-1.035); Squamous Epithelial Cell,Urine <1 /hpf (0-4); Urobilinogen,Urine <2.0 mg/dL (<2.0); WBC,Urine 36 /hpf (0-5)
[2019-10-22] MEDS ORDERED: ACETAMINOPHEN TAB 325 MG TAB PO PRN (04:01)
[2019-10-22] MEDS ORDERED: NALOXONE 0.4 MG/ML 1 ML VIAL IV PRN (04:01)
[2019-10-22] MEDS: SODIUM CHLORIDE 0.9% 1,000 ML IV SCH (04:54)
[2019-10-22] MEDS ORDERED: traMADol 50 MG TAB PO PRN (07:33)
[2019-10-22] MEDS ORDERED: MEMANTINE 10 MG TAB PO SCH (08:00)
[2019-10-22] MEDS ORDERED: POTASSIUM CHLORIDE ER 20 MEQ TAB.ER PO SCH (08:00)
[2019-10-22] MEDS: amLODIPine 5 MG TAB PO SCH (08:31)
[2019-10-22] MEDS: NON FORMULARY DRUG (Magic Butt Paste 1 APPLIC) TOPICAL SCH ×2 (08:31→22:03)
[2019-10-22] MEDS: DIPHENOX-ATROP 2.5-0.025 MG 1 EACH TAB PO SCH ×3 (08:31→17:24)
[2019-10-22] MEDS ORDERED: NYSTAT-TRIAMCIN 100,000-0.1 UNIT/GM-% CREAM 30 GM TUBE TOPICAL SCH (09:00)
--- NOTE | 2019-10-22 09:00 | HP ---
HISTORY AND PHYSICAL A 74-year-old white female who is admitted to the hospital for altered mental status, twitches to extremities and more somnolence. She has a history of acute bleeding, worsening bleeding, esophageal varices and liver failure with elevated ammonia levels history. Hemoglobin has been trending down over the last week or so at the residential. She had severe diarrhea for which she was given Lomotil with cleared that up, but she has severe macerations of her rectum secondary to this. PAST MEDICAL HISTORY: Of atrial fibrillation, heart failure, COPD, CVA, TIA, GERD, GI bleeding, hypertension, osteoarthritis, dyslipidemia, history uterine cancer chemo 6 years ago, TIA several years ago, neuropathy, anemia, cirrhosis with esophageal varices with esophageal bleeding, hysterectomy, tonsillectomy, colonoscopy, EGD, bilateral cataracts, anxiety, depression, former smoker. No alcohol. No drugs. FAMILY HISTORY: Cancer in the father and cancer in a brother. Temperature 97.4, pulse 60 to 64, respiratory rate is 16 to 20, blood pressure 107/47, O2 is 96%. EKG sinus rhythm. Labs were reviewed. ASSESSMENT: 1. Suspect severe acute on chronic anemia, GI bleeding, possibly encephalopathy due to hepatic encephalopathy. 2. Rule out severe UTI with urinary tract infection with sepsis from this. 3. Brain CT in the emergency room shows old right temporal lobe infarct, unchanged. This chest x-ray in the emergency room showed pulmonary edema, pulmonary infiltrates, heart failure. Pulmonary will be consulted. Broad-spectrum antibiotics will be given. 4. Acute on chronic anemia. 5. Acute on chronic renal disease, prerenal renal insufficiency due to dehydration, hyperkalemia, moderate protein calorie malnutrition. Please see further orders. MMODL / IJN: [id number] /
[2019-10-22] MEDS: PANTOPRAZOLE 40 MG TABLET PO SCH ×2 (09:15→17:24)
[2019-10-22] MEDS: PROPRANOLOL 10 MG TAB PO SCH ×3 (09:15→17:02)
[2019-10-22] MEDS: FUROSEMIDE 40 MG TAB PO SCH (09:15)
[2019-10-22] MEDS: ESCITALOPRAM 10 MG TAB PO SCH (09:16)
[2019-10-22] MEDS: NYSTATIN 100,000UNIT/GM CREAM 30 GM TUBE TOPICAL SCH ×2 (09:17→20:33)
[2019-10-22] MEDS: TRIAMCINOLONE 0.1% CREAM 80 GM TUBE TOPICAL SCH ×2 (09:17→20:33)
[2019-10-22] MEDS ORDERED: SODIUM POLYSTYRENE SULFONATE 15 GM/60 ML BOTTLE PO ONE (12:06)
--- NOTE | 2019-10-22 16:31 | P.CNPUL ---
History of Present Illness Consult date: 10/22/19 Reason for consult: dyspnea, pneumonia Chief complaint: Altered mental status History of present illness: patient seen eval reexamined on medical floor, patient originally has been admitted into the hospital with altered mental status thought to be related to cirrhosis and elevated ammonia level but currently patient is arousable and follows simple commands, her chest x-ray and computed tomography scan reviewed, computed tomography 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, chest x-ray so history of bilateral small pulmonary edema effusion bilateral large on the left side compared right side, possible atelectasis appeared to be present pneumonia cannot be excluded involving the left lower lobe, evidence of chronic kidney disease stage III, BNP is very high 2650, urinary and is positive for large leukocyte esterase trace RBCs, urine culture results are pending, patient is currently on Rocephin and continuation of her home medications Review of Systems All systems: negative Past Medical History Past Medical History: Atrial Fibrillation, Cancer, Heart Failure, COPD, CVA/TIA, GERD/Reflux, GI Bleed, Hyperlipidemia, Hypertension, Osteoarthritis (OA) Additional Past Medical History / Comment(s): hx. uterine cancer, chemo 6 years ago, TIA several yrs. ago-forgetful, neuropathy feet & legs & hands, ANEMIA, tremors History of Any Multi-Drug Resistant Organisms: None Reported Past Surgical History: Hysterectomy, Tonsillectomy Additional Past Surgical History / Comment(s): COLONOSCOPY. EGD. BILAT CATARACTS REMOVED Past Anesthesia/Blood Transfusion Reactions: No Reported Reaction Past Psychological History: Anxiety, Depression Smoking Status: Former smoker Past Alcohol Use History: None Reported Additional Past Alcohol Use History / Comment(s): SMOKES 1PPD SINCE AGE 12, pt states that she has cut back on her smoking a lot Past Drug Use History: None Reported - Past Family History Mother Family Medical History: Cancer Father History Unknown: Yes Family Medical History: Cancer Brother(s) Family Medical History: Cancer Medications and Allergies Home Medications Medication Instructions Recorded Confirmed Type Ferrous Sulfate [Feosol] 325 mg PO BID@0800,1700 10/29/16 10/21/19 History Donepezil [Aricept] 10 mg PO HS@2100 11/07/17 10/21/19 History Levothyroxine Sodium [Synthroid] 25 mcg PO DAILY@0600 11/07/17 10/21/19 History Cetirizine HCl [Zyrtec] 10 mg PO DAILY@0800 01/14/19 10/21/19 History Escitalopram [Lexapro] 10 mg PO DAILY@0801/14/19 10/21/19 History Memantine [Namenda] 10 mg PO BID@0800,17001/14/19 10/21/19 History Furosemide [Lasix] 40 mg PO DAILY@79909/14/19 10/21/19 History Magnesium Oxide [Magox 400] 400 mg PO DAILY@169909/14/19 10/21/19 History Loperamide [Imodium] 2 mg PO Q12H PRN 09/28/19 10/21/19 History Potassium Chloride ER [K-Dur 20] 20 meq PO BID@0800,169909/28/19 10/21/19 Hi story Vitamin B Complex 1 cap PO DAILY@169909/28/19 10/21/19 History rOPINIRole HCL [Requip] 0.5 mg PO HS@209909/28/19 10/21/19 History traMADol HCl [Ultram] 50 mg PO BID PRN #6 tab 10/01/19 10/21/19 Rx Acetaminophen [Acetaminophen 8 650 mg PO Q4H PRN 10/21/19 10/21/19 History Hour] Budesonide-Formot 160-4.5 Mcg 2 puff INHALATION RT-BID@0800,169910/21/19 10/21/19 History [Symbicort 160-4.5 Mcg Inhaler] Cholestyramine/Aspartame 4 gm PO DAILY@169910/21/19 10/21/19 History [Cholestyramine Light Packet] Darbepoetin Chilo [Aranesp] 40 mcg IJ TH@169910/21/19 10/21/19 History Diphenoxylate HCl/Atropine 1 tab PO Q6H 10/21/19 10/21/19 History [Lomotil 2.5-0.025 mg Tablet] Gabapentin 800 mg PO TID@0600,1400,2200 10/21/19 10/21/19 History Levofloxacin [Levaquin] 250 mg PO DAILY@209910/21/19 10/21/19 History Liquacel 30 ml PO BID@0800,17010/21/19 10/21/19 History Magic Butt Paste 1 applic TOPICAL BID@0800,2000 10/21/19 10/21/19 History Magnesium Hydroxide [Milk of 7,200 mg PO DAILY PRN 10/21/19 10/21/19 History Magnesia Concentrate] Na Phos,M-B/Na Phos,Di-Ba [Fleet 133 ml RECTAL DAILY PRN 10/21/19 10/21/19 History Adult] Nystatin/Triamcin 1 applicate TOPICAL BID 10/21/19 10/21/19 History [Nystatin-Triamcinolone Cream] Omeprazole 40 mg PO DAILY@0600 10/21/19 10/21/19 History Pantoprazole Sodium [Protonix] 40 mg PO BID@0800,169910/21/19 10/21/19 History Propranolol [Inderal] 10 mg PO TID@0800,1200,169910/21/19 10/21/19 History Saccharomyces Boulardii 250 mg PO DAILY@169910/21/19 10/21/19 History amLODIPine [Norvasc] 5 mg PO DAILY@0800 10/21/19 10/21/19 History bisacodyL [Dulcolax] 10 mg RECTAL DAILY PRN 10/21/19 10/21/19 History Allergies Allergy/AdvReac Type Severity Reaction Status Date / Time No Known Allergies Allergy Verified 10/21/19 23:38 Physical Exam Vitals: Vital Signs Temp Pulse Pulse Resp BP BP Pulse Ox 10/22/19 14:53 97.7 F 62 19 90/47 96 10/22/19 12:08 93/51 10/22/19 08:00 101/45 10/22/19 07:00 97.9 F 84 19 90/44 94 L 10/22/19 06:45 84 19 10/22/19 05:39 18 10/22/19 05:20 97.6 F 61 18 107/53 94 L 10/22/19 04:54 97.7 F 57 L 18 108/49 96 10/22/19 04:00 58 L 16 106/45 95 10/22/19 02:00 60 18 124/68 96 10/22/19 00:00 59 L 16 100/48 97 10/21/19 23:04 97.4 F L 64 19 107/47 96 Intake and Output 10/22/19 10/22/19 10/22/19 06:59 14:59 22:59 Output Total 350 450 Balance -350 -450 Output: Urine 350 450 Other: Voiding Method Indwelling Catheter Weight 71.214 kg - Constitutional General appearance: average body habitus, cooperative, disheveled - EENT Eyes: EOMI, PERRLA ENT: hard of hearing Ears: bilateral: normal - Neck Neck: normal ROM Carotids: bilateral: upstroke normal Thyroid: bilateral: normal size - Respiratory Respiratory: left: diminished - Cardiovascular Rhythm: regular Heart sounds: normal: S1, S2 - Gastrointestinal General gastrointestinal: decreased bowel sounds, normal bowel sounds, soft - Neurologic Neurologic: CNII-XII intact - Musculoskeletal Musculoskeletal: gait normal, generalized weakness, strength equal bilaterally - Psychiatric Psychiatric: A&O x's 3, appropriate affect, intact judgment & insight Results - Laboratory Findings CBC and BMP: 10/21/19 23:29 10/21/19 23:29 PT/INR, D-dimer PT 12.0 sec (9.0-12.0) 10/21/19 23:29 INR 1.2 (<1.2) H 10/21/19 23:29 Abnormal lab findings: Abnormal Labs 10/21/19 10/21/19 10/21/19 23:29 23:29 23:29 WBC 11.4 H RBC 2.71 L Hgb 9.1 L D Hct 29.7 L MCV 109.7 H MCHC 30.6 L RDW 18.0 H Plt Count 88 L Neutrophils # (Manual) 10.70 H Lymphocytes # (Manual) 0.23 L Macrocytosis Marked A INR 1.2 H APTT 30.9 H Potassium 5.9 H Chloride 115 H Carbon Dioxide 20 L BUN 68 H Creatinine 1.95 H Glucose 104 H Calcium 8.3 L Alkaline Phosphatase 140 H Albumin 2.2 L Urine Appearance Ur Leukocyte Esterase Urine WBC Urine WBC Clumps Urine Bacteria Urine Mucus Urine Yeast (Budding) 10/22/19 01:38 WBC RBC Hgb Hct MCV MCHC RDW Plt Count Neutrophils # (Manual) Lymphocytes # (Manual) Macrocytosis INR APTT Potassium Chloride Carbon Dioxide BUN Creatinine Glucose Calcium Alkaline Phosphatase Albumin Urine Appearance Cloudy H Ur Leukocyte Esterase Large H Urine WBC 36 H Urine WBC Clumps Few H Urine Bacteria Rare H Urine Mucus Rare H Urine Yeast (Budding) Few H - Diagnostic Findings Chest x-ray: report reviewed, image reviewed (finding as noted above) Assessment and Plan Assessment: left-sided atelectasis versus pneumonia versus pleural effusion Congestive heart failure likely acute on chronic systolic/diastolic heart failure Chronic kidney disease stage III UTI/Sirs-like process Altered mental status likely multifactorial including an associated with pneumonia congestive heart failure and UTI History of GI bleed cirrhosis liver Plan: Overall plan is to continue antibiotics follow up on urine culture results, we'll continue supportive care consider obtaining ultrasound of the chest left- sided to diagnose extent of pleural effusion Time with Patient: Greater than 30
[2019-10-22] MEDS ORDERED: DARBEPOETIN ALFA 40 MCG/0.4 ML SYRINGE SQ SCH (17:00)
[2019-10-22] MEDS: MEMANTINE 5 MG TAB PO SCH (17:24)
--- NOTE | 2019-10-22 17:31 | US ---
EXAMINATION TYPE: US chest DATE OF EXAM: 10/22/2019 COMPARISON: x-ray 10/21/2019 CLINICAL HISTORY: left pleural effusion. TECHNIQUE: Targeted ultrasound of the posterior lower bilateral hemithorax EXAM MEASUREMENTS: Left Pleural Effusion pocket size: 8.5 cm Left skin surface to fluid distance: 1.6 cm Left side marked for possible thoracentesis outside the dept. Right hemithorax imaging negative for definite pleural effusion. Pulmonologists are able to review the images in the patient?s EMR. IMPRESSIONS: LEFT PLEURAL EFFUSION
--- NOTE | 2019-10-22 18:52 | P.CNNES ---
History of Present Illness Consult date: 10/22/19 Requesting physician: Rakan Hayes Reason for Consult: Confusion History of Present Illness: Patient is a 74-year-old female, known to me from recent admission to the hospital on 09/01/2019 when she was seen for weakness of lower extremities. She was noted to have myoclonic jerks, which was felt to be related to Neurontin. Her myoclonic jerks resolved with reduction in the dose of Neurontin. Patient now came to the hospital yesterday at 11 PM for altered mental status, twitches to the extremities and more somnolence. Her vitals on arrival was blood pressure 107/47, pulse rate 64 and temperature 97.4. No focal signs or symptoms were reported. She has a history of acute bleeding, worsening bleeding esophag eal varices and liver failure with elevated ammonia levels in the past. Hemoglobin has been trending down. She had severe diarrhea for which she was given Lomotil which cleared up that that. CT head showed cerebral atrophy. Old right temporal lobe infarct, unchanged. Chest x-ray showed pulmonary edema and pulmonary infiltrates could relate to RDS and congestive heart failure. Abnormalities increased compared to old exam. EKG shows normal sinus rhythm with local voltage QRS. Patient's blood test shows WBC 11.4 hemoglobin 9.1, with elevated MCV 109.7. Platelets are 88. PTT is 30.9 INR 1.2. Potassium 65.9, normal sodium. BUN 68 (35 on 10/05/2019), creatinine 1.95 (1.84 on 10/05/2019). Lactic acid is normal 1.3. Ammonia normal. UA showed large amount of leukocyte Estrace. 36 WBCs and 2 WBC clumps and rare bacteria. Culture so far negative. Patient's hall virus PCR was neg ative on 09/28/2019. I reviewed patient's medication list from the half-way transfer sheet, and confirmed that patient is back on Neurontin 800 mg 3 times a day. Review of Systems Patient complains of shortness of breath, some cough. Denies double vision, loss of vision. Denies numbness tingling. Complains of pain in the feet. Complains of body aches. No fever Past Medical History Past Medical History: Atrial Fibrillation, Cancer, Heart Failure, COPD, CVA/TIA, GERD/Reflux, GI Bleed, Hyperlipidemia, Hypertension, Osteoarthritis (OA) Additional Past Medical History / Comment(s): hx. uterine cancer, chemo 6 years ago, TIA several yrs. ago-forgetful, neuropathy feet & legs & hands, ANEMIA, tr emors History of Any Multi-Drug Resistant Organisms: None Reported Past Surgical History: Hysterectomy, Tonsillectomy Additional Past Surgical History / Comment(s): COLONOSCOPY. EGD. BILAT CATARACTS REMOVED Past Anesthesia/Blood Transfusion Reactions: No Reported Reaction Past Psychological History: Anxiety, Depression Smoking Status: Former smoker Past Alcohol Use History: None Reported Additional Past Alcohol Use History / Comment(s): SMOKES 1PPD SINCE AGE 12, pt states that she has cut back on her smoking a lot Past Drug Use History: None Reported - Past Family History Mother Family Medical History: Cancer Father History Unknown: Yes Family Medical History: Cancer Brother(s) Family Medical History: Cancer Medications and Allergies Home Medications Medication Instructions Recorded Confirmed Type Ferrous Sulfate [Feosol] 325 mg PO BID@0800,1700 10/29/16 10/21/19 History Donepezil [Aricept] 10 mg PO HS@209911/07/17 10/21/19 History Levothyroxine Sodium [Synthroid] 25 mcg PO DAILY@0600 11/07/17 10/21/19 History Cetirizine HCl [Zyrtec] 10 mg PO DAILY@0800 01/14/19 10/21/19 History Escitalopram [Lexapro] 10 mg PO DAILY@0800 01/14/19 10/21/19 History Memantine [Namenda] 10 mg PO BID@0800,1700 01/14/19 10/21/19 History Furosemide [Lasix] 40 mg PO DAILY@0800 09/14/19 10/21/19 History Magnesium Oxide [Magox 400] 400 mg PO DAILY@169909/14/19 10/21/19 History Loperamide [Imodium] 2 mg PO Q12H PRN 09/28/19 10/21/19 History Potassium Chloride ER [K-Dur 20] 20 meq PO BID@0800,1700 09/28/19 10/21/19 History Vitamin B Complex 1 cap PO DAILY@17009/28/19 10/21/19 History rOPINIRole HCL [Requip] 0.5 mg PO HS@209909/28/19 10/21/19 History traMADol HCl [Ultram] 50 mg PO BID PRN #6 tab 10/01/19 10/21/19 Rx Acetaminophen [Acetaminophen 8 650 mg PO Q4H PRN 10/21/19 10/21/19 History Hour] Budesonide-Formot 160-4.5 Mcg 2 puff INHALATION RT-BID@0800,169910/21/19 10/21/19 History [Symbicort 160-4.5 Mcg Inhaler] Cholestyramine/Aspartame 4 gm PO DAILY@169910/21/19 10/21/19 History [Cholestyramine Light Packet] Darbepoetin Chilo [Aranesp] 40 mcg IJ TH@169910/21/19 10/21/19 History Diphenoxylate HCl/Atropine 1 tab PO Q6H 10/21/19 10/21/19 History [Lomotil 2.5-0.025 mg Tablet] Gabapentin 800 mg PO TID@0600,1400,2200 10/21/19 10/21/19 History Levofloxacin [Levaquin] 250 mg PO DAILY@209910/21/19 10/21/19 History Liquacel 30 ml PO BID@0800,169910/21/19 10/21/19 History Magic Butt Paste 1 applic TOPICAL BID@0800,199910/21/19 10/21/19 History Magnesium Hydroxide [Milk of 7,200 mg PO DAILY PRN 10/21/19 10/21/19 History Magnesia Concentrate] Na Phos,M-B/Na Phos,Di-Ba [Fleet 133 ml RECTAL DAILY PRN 10/21/19 10/21/19 History Adult] Nystatin/Triamcin 1 applicate TOPICAL BID 10/21/19 10/21/19 History [Nystatin-Triamcinolone Cream] Omeprazole 40 mg PO DAILY@0610/21/19 10/21/19 History Pantoprazole Sodium [Protonix] 40 mg PO BID@0800,169910/21/19 10/21/19 History Propranolol [Inderal] 10 mg PO TID@0800,1200,169910/21/19 10/21/19 History Saccharomyces Boulardii 250 mg PO DAILY@169910/21/19 10/21/19 History amLODIPine [Norvasc] 5 mg PO DAILY@0800 10/21/19 10/21/19 History bisacodyL [Dulcolax] 10 mg RECTAL DAILY PRN 10/21/19 10/21/19 History Allergies Allergy/AdvReac Type Severity Reaction Status Date / Time No Known Allergies Allergy Verified 10/21/19 23:38 Physical Examination - Vital Signs Vital Signs: Vital Signs Temp Pulse Pulse Resp BP BP Pulse Ox 10/22/19 14:53 97.7 F 62 19 90/47 96 10/22/19 12:08 93/51 10/22/19 08:00 101/45 10/22/19 07:00 97.9 F 84 19 90/44 94 L 10/22/19 06:45 84 19 10/22/19 05:39 18 10/22/19 05:20 97.6 F 61 18 107/53 94 L 10/22/19 04:54 97.7 F 57 L 18 108/49 96 10/22/19 04:00 58 L 16 106/45 95 10/22/19 02:00 60 18 124/68 96 10/22/19 00:00 59 L 16 100/48 97 10/21/19 23:04 97.4 F L 64 19 107/47 96 Intake and Output 10/22/19 10/22/19 10/22/19 06:59 14:59 22:59 Output Total 350 450 Balance -350 -450 Output: Urine 350 450 Other: Voiding Method Indwelling Catheter Weight 71.214 kg On examination patient is an elderly female, appears obviously encephalopathic. She is having significant myoclonic jerks noticed. Patient is somnolent, easily drifts to sleep. She knows it is September 2019 and that she is in [facility] in [place]. Speech is mildly hoarse. No aphasia or dysarthria. Attention span and concentration is decreased. On cranial nerve examination pupils are round and reactive to light, visual [place] appears full. Extraocular muscles are intact. Visual [place] are full, face is symmetric. Tongue protrudes the midline. Palatal elevation physician normal hearing is slightly decreased, shoulder shrug normal. On muscle strength testing the strength appears normal in the arms and legs. Patient has very tender feet. Reflexes are 1+ and plantars are withdrawal. Sensory touch is equal. No ataxia. Patient is tremulous. Patient has myoclonic jerks of her shoulders, arms. Also of the legs. No obvious bruit, S1 and S2 audible Results - Laboratory Findings CBC and BMP: 10/21/19 23:29 10/21/19 23:29 Abnormal Lab Findings: Abnormal Labs 10/21/19 10/21/19 10/21/19 23:29 23:29 23:29 WBC 11.4 H RBC 2.71 L Hgb 9.1 L D Hct 29.7 L MCV 109.7 H MCHC 30.6 L RDW 18.0 H Plt Count 88 L Neutrophils # (Manual) 10.70 H Lymphocytes # (Manual) 0.23 L Macrocytosis Marked A INR 1.2 H APTT 30.9 H Potassium 5.9 H Chloride 115 H Carbon Dioxide 20 L BUN 68 H Creatinine 1.95 H Glucose 104 H Calcium 8.3 L Alkaline Phosphatase 140 H Albumin 2.2 L Urine Appearance Ur Leukocyte Esterase Urine WBC Urine WBC Clumps Urine Bacteria Urine Mucus Urine Yeast (Budding) 10/22/19 01:38 WBC RBC Hgb Hct MCV MCHC RDW Plt Count Neutrophils # (Manual) Lymphocytes # (Manual) Macrocytosis INR APTT Potassium Chloride Carbon Dioxide BUN Creatinine Glucose Calcium Alkaline Phosphatase Albumin Urine Appearance Cloudy H Ur Leukocyte Esterase Large H Urine WBC 36 H Urine WBC Clumps Few H Urine Bacteria Rare H Urine Mucus Rare H Urine Yeast (Budding) Few H Assessment and Plan Assessment: * Altered mental status due to toxic metabolic encephalopathy. Causes multifactorial. Worsening CHF, possible pneumonia/pleural effusion, anemia, and acute on chronic renal insufficiency and medications the likely cause. * Myoclonic jerks. Patient is on a high-dose of Neurontin, and with acute renal insufficiency, likely leading to toxicity. * Hepatic cirrhosis and esophageal varices * Chronic anemia Plan: * Patient's was on Neurontin 800 mg 3 times a day. At present it has been held. To prevent any rebound effect, we will reduce it to 300 mg twice a day. * Your medical management. * Carotid Doppler to rule out stenosis. * Patient's B12, folate are normal. TSH is 16.70, on 10/09/2019. May need adjustment of thyroid hormone replacement therapy.
[2019-10-22] MEDS: DONEPEZIL 10 MG TAB PO SCH (20:34)
--- NOTE | 2019-10-23 00:26 | US ---
EXAMINATION TYPE: US carotid duplex BILAT DATE OF EXAM: 10/22/2019 COMPARISON: CT CLINICAL HISTORY: Altered mental status. Altered mental status. Per patient: smoker, HTN, Hyperlipide chencho. EXAM MEASUREMENTS: RIGHT: Peak Systolic Velocity (PSV) cm/sec ----- Right CCA: 87.2 ----- Right ICA: 149.7 ----- Right ECA: 160.9 ICA/CCA ratio: 1.7 RIGHT: End Diastole cm/sec ----- Right CCA: 14.6 ----- Right ICA: 25.3 ----- Right ECA: 9.2 LEFT: Peak Systolic Velocity (PSV) cm/sec ----- Left CCA: 87.1 ----- Left ICA: 280.5 ----- Left ECA: 115.2 ICA/CCA ratio: 3.2 LEFT: End Diastole cm/sec ----- Left CCA: 22.4 ----- Left ICA: 71.0 ----- Left ECA: 6.9 VERTEBRALS (direction of flow): Right Vertebral: Antegrade Left Vertebral: Antegrade Rhythm: Normal Intimal thickening seen bilaterally. Hyperechoic plaque seen bilateral carotid bifurcations. Elevated velocities right distal ICA, right ECA, and left distal ICA. Very tortuous left ICA. Incidental finding: hypoechoic solid nodule seen with well-defined margins and internal vascularity s een within the right thyroid lobe. This area measures: 1.6 x 1.6 x 1.1 cm. *Limited exam due to patient movement. IMPRESSION: There is antegrade flow in the vertebral arteries. There is bilateral plaque formation and estimated stenosis more than 70% in the left internal carotid artery and close to 70% stenosis in the right int ernal carotid artery. There is noted a sharply marginated rounded 16 x 11 mm solid nodule in the right thyroid lobe. Criteria for Assigning % of Stenosis / Diameter reduction (Estimation based on the indirect measurements of the internal carotid artery velocities (ICA PSV). 1. Normal (no stenosis)=ICA PSV < 125 cm/s: ratio < 2.0: ICA EDV<40 cm/s. 2. Less than 50% stenosis=ICA PSV < 125 cm/s: ratio < 2.0: ICA EDV<40 cm/s. 3. 50 to 69% stenosis=ICA PSV of 125 to 230 cm/s: ration 2.0 ? 4.0: ICA EDV 40-100 cm/s. 4. Greater than 70% stenosis to near occlusion= ICA PSV > 230 cm/s: ratio > 4.0: ICA EDV > 100 cm/s. 5. Near occlusion= ICA PSV velocities may be low or undetectable: variable ratio and ICA EDV. 6. Total occlusion=unable to detect flow.
[2019-10-23] MEDS: DIPHENOX-ATROP 2.5-0.025 MG 1 EACH TAB PO SCH ×4 (02:14→20:38)
[2019-10-23] MEDS: LEVOTHYROXINE 25 MCG TAB PO SCH (05:15)
[2019-10-23] MEDS: SODIUM CHLORIDE 0.9% 1,000 ML IV SCH (05:15)
[2019-10-23] MEDS: PANTOPRAZOLE 40 MG TABLET PO SCH ×2 (07:32→17:11)
[2019-10-23] MEDS: MEMANTINE 5 MG TAB PO SCH ×2 (07:32→17:11)
[2019-10-23] MEDS: FUROSEMIDE 40 MG TAB PO SCH (07:33)
[2019-10-23] MEDS: ESCITALOPRAM 10 MG TAB PO SCH (07:33)
[2019-10-23] MEDS: NON FORMULARY DRUG (Magic Butt Paste 1 APPLIC) TOPICAL SCH ×2 (07:33→20:41)
[2019-10-23] MEDS: amLODIPine 5 MG TAB PO SCH (07:33)
[2019-10-23] MEDS: TRIAMCINOLONE 0.1% CREAM 80 GM TUBE TOPICAL SCH ×2 (07:34→20:38)
[2019-10-23] MEDS: NYSTATIN 100,000UNIT/GM CREAM 30 GM TUBE TOPICAL SCH ×2 (07:34→20:38)
[2019-10-23] MEDS: PROPRANOLOL 10 MG TAB PO SCH ×3 (07:34→17:11)
--- NOTE | 2019-10-23 07:50 | P.CONS ---
History of Present Illness - Reason for Consult Consult date: 10/22/19 Urinary tract infection Requesting physician: Bebeto Davila - Chief Complaint Mental status changes x one day - History of Present Illness Patient is 74 -year-old female who has been brought into the ER for evaluation of mental status changes the pain started the day before presenting to the hospital patient did not recall what happened to her, patient denies any history of any fall or trauma denies any history of headache or URI symptoms no chest pain no shortness of breath or cough no nausea no vomiting no abdominal pain no diarrhea did have some urinary symptoms of burning and occasional frequency no suprapubic or flank pain with recent the patient was evaluated by the ER physician on arrival to the ER patient has been afebrile her white count was normal and she did have a positive UA, chest x-ray has been negative for any pneumonia she was started on Rocephin has been admitted to the hospital infectious disease was consulted for further management of antibiotic therapy Review of Systems Positive point has been mentioned in the HPI rest of the systems are negative Past Medical History Past Medical History: Atrial Fibrillation, Cancer, Heart Failure, COPD, CVA/TIA, GERD/Reflux, GI Bleed, Hyperlipidemia, Hypertension, Osteoarthritis (OA) Additional Past Medical History / Comment(s): hx. uterine cancer, chemo 6 years ago, TIA several yrs. ago-forgetful, neuropathy feet & legs & hands, ANEMIA, tremors History of Any Multi-Drug Resistant Organisms: None Reported Past Surgical History: Hysterectomy, Tonsillectomy Additional Past Surgical History / Comment(s): COLONOSCOPY. EGD. BILAT CATARACTS REMOVED Past Anesthesia/Blood Transfusion Reactions: No Reported Reaction Past Psychological History: Anxiety, Depression Smoking Status: Former smoker Past Alcohol Use History: None Reported Additional Past Alcohol Use History / Comment(s): SMOKES 1PPD SINCE AGE 12, pt states that she has cut back on her smoking a lot Past Drug Use History: None Reported - Past Family History Mother Family Medical History: Cancer Father History Unknown: Yes Family Medical History: Cancer Brother(s) Family Medical History: Cancer Medications and Allergies Home Medications Medication Instructions Recorded Confirmed Type Ferrous Sulfate [Feosol] 325 mg PO BID@0800,1700 10/29/16 10/21/19 History Donepezil [Aricept] 10 mg PO HS@2100 11/07/17 10/21/19 History Levothyroxine Sodium [Synthroid] 25 mcg PO DAILY@0600 11/07/17 10/21/19 History Cetirizine HCl [Zyrtec] 10 mg PO DAILY@0800 01/14/19 10/21/19 History Escitalopram [Lexapro] 10 mg PO DAILY@0800 01/14/19 10/21/19 History Memantine [Namenda] 10 mg PO BID@0800,1700 01/14/19 10/21/19 History Furosemide [Lasix] 40 mg PO DAILY@0809/14/19 10/21/19 History Magnesium Oxide [Magox 400] 400 mg PO DAILY@169909/14/19 10/21/19 History Loperamide [Imodium] 2 mg PO Q12H PRN 09/28/19 10/21/19 History Potassium Chloride ER [K-Dur 20] 20 meq PO BID@0800,17009/28/19 10/21/19 History Vitamin B Complex 1 cap PO DAILY@169909/28/19 10/21/19 History rOPINIRole HCL [Requip] 0.5 mg PO HS@2100 09/28/19 10/21/19 History traMADol HCl [Ultram] 50 mg PO BID PRN #6 tab 10/01/19 10/21/19 Rx Acetaminophen [Acetaminophen 8 650 mg PO Q4H PRN 10/21/19 10/21/19 History Hour] Budesonide-Formot 160-4.5 Mcg 2 puff INHALATION RT-BID@0800,169910/21/19 10/21/19 History [Symbicort 160-4.5 Mcg Inhaler] Cholestyramine/Aspartame 4 gm PO DAILY@169910/21/19 10/21/19 History [Cholestyramine Light Packet] Darbepoetin Chilo [Aranesp] 40 mcg IJ TH@169910/21/19 10/21/19 History Diphenoxylate HCl/Atropine 1 tab PO Q6H 10/21/19 10/21/19 History [Lomotil 2.5-0.025 mg Tablet] Gabapentin 800 mg PO TID@0600,1400,2200 10/21/19 10/21/19 History Levofloxacin [Levaquin] 250 mg PO DAILY@2100 10/21/19 10/21/19 History Liquacel 30 ml PO BID@0800,1700 10/21/19 10/21/19 History Magic Butt Paste 1 applic TOPICAL BID@0800,2000 10/21/19 10/21/19 History Magnesium Hydroxide [Milk of 7,200 mg PO DAILY PRN 10/21/19 10/21/19 History Magnesia Concentrate] Na Phos,M-B/Na Phos,Di-Ba [Fleet 133 ml RECTAL DAILY PRN 10/21/19 10/21/19 History Adult] Nystatin/Triamcin 1 applicate TOPICAL BID 10/21/19 10/21/19 History [Nystatin-Triamcinolone Cream] Omeprazole 40 mg PO DAILY@0600 10/21/19 10/21/19 History Pantoprazole Sodium [Protonix] 40 mg PO BID@0800,17010/21/19 10/21/19 History Propranolol [Inderal] 10 mg PO TID@0800,1200,1700 10/21/19 10/21/19 History Saccharomyces Boulardii 250 mg PO DAILY@17010/21/19 10/21/19 History amLODIPine [Norvasc] 5 mg PO DAILY@0800 10/21/19 10/21/19 History bisacodyL [Dulcolax] 10 mg RECTAL DAILY PRN 10/21/19 10/21/19 History Allergies Allergy/AdvReac Type Severity Reaction Status Date / Time No Known Allergies Allergy Verified 10/21/19 23:38 Physical Exam Vitals: Vital Signs Temp Pulse Resp BP Pulse Ox 10/23/19 01:42 98.5 F 67 91/52 95 10/22/19 18:37 98.1 F 62 104/55 93 L 10/22/19 14:53 97.7 F 62 19 90/47 96 10/22/19 12:08 93/51 10/22/19 08:00 101/45 Intake and Output 10/22/19 10/23/19 10/23/19 22:59 06:59 14:59 Output Total 375 Balance -375 Output: Urine 375 GENERAL DESCRIPTION: An elderly female lying in bed, no distress. No tachypnea or accessory muscle of respiration use. HEENT: Shows Pallor , no scleral icterus. Oral mucous membrane is dry. No pharyngeal erythema or thrush NECK: Trachea central, no thyromegaly. LUNGS: Unlabored breathing. Clear to auscultation anteriorly. No wheeze or crac kle. HEART: S1, S2, regular rate and rhythm. No loud murmur ABDOMEN: Soft, no tenderness , guarding or rigidity, no organomegaly EXTREMITIES: No edema of feet. SKIN: No rash, no masses palpable. NEUROLOGICAL: The patient is awake, alert, oriented x2, mood and affect normal. Results CBC & Chem 7: 10/21/19 23:29 10/21/19 23:29 Labs: Microbiology - Last 24 Hours (Table) 10/22/19 01:57 Blood Culture - Preliminary Blood No Growth after 24 hours 10/22/19 01:38 Urine Culture - Preliminary Urine,Voided Assessment and Plan Assessment: 1- patient presented to hospital with mental status changes which is likely multifactorial in this patient who did have a positive UA and urine symptom underlying symptomatic urinary tract infection from enteric gram-negative pathogen not entirely excluded (1) UTI (urinary tract infection) Current Visit: No Status: Acute Code(s): N39.0 - URINARY TRACT INFECTION, SITE NOT SPECIFIED SNOMED Code(s): 87109315 Plan: 1- Rocephin 1 g IV piggyback daily 2- gentle IV fluid We will follow on clinical condition and cultures to further adjust medication if needed Thank you for this consultation will follow this patient with you Time with Patient: Greater than 30
[2019-10-23 08:47] LABS: Calcium 7.8 mg/dL (8.4-10.2); Potassium 5.1 mmol/L (3.5-5.1); Total Bilirubin 0.5 mg/dL (0.2-1.3); Total Protein 6.5 g/dL (6.3-8.2)
[2019-10-23 09:06] LABS: Anisocytosis Slight; HCT 22.2 % (34.0-46.0); Hypochromasia Marked; MCH 33.7 pg (25.0-35.0); MCV 108.7 fL (80.0-100.0); Macrocytosis Marked; Mean Platelet Volume 12.8; RBC 2.04 m/uL (3.80-5.40); WBC 10.8 k/uL (3.8-10.6)
[2019-10-23 09:23] LABS: HGB 6.9 gm/dL (11.4-16.0); Platelet Count 87 k/uL (150-450)
--- NOTE | 2019-10-23 10:09 | P.PN ---
Subjective Progress Note Date: 10/23/19 Principal diagnosis: Left-sided pleural effusion left-sided atelectasis versus pneumonia Congestive heart failure likely acute on chronic systolic/diastolic heart failure Chronic kidney disease stage III UTI/Sirs-like process Altered mental status likely multifactorial including an associated with pneumonia congestive heart failure and UTI History of GI bleed cirrhosis liver 10/23/2019, patient seen eval examined during rounds labs reviewed more awake and alert oriented 2 denies any chest pain does have some shortness of breath, labs reviewed medications reviewed ultrasound finding reviewed's as well as hard copies of left-sided him is reviewed, patient has a moderate pleural effusion on the left side given chronic kidney disease unlikely to respond to furosemide will require thoracentesis to drain the fluid, procedure explained to the patient will also obtain consent patient seen eval reexamined on medical floor, patient originally has been admitted into the hospital with altered mental status thought to be related to cirrhosis and elevated ammonia level but currently patient is arousable and follows simple commands, her chest x-ray and computed tomography scan reviewed, computed tomography 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, chest x-ray so history of bilateral small pulmonary edema effusion bilateral large on the left side compared right side, possible atelectasis appeared to be present pneumonia cannot be excluded involving the left lower lobe, evidence of chronic kidney disease stage III, BNP is very high 2650, urinary and is positive for large leukocyte esterase trace RBCs, urine culture results are pending, patient is currently on Rocephin and continuation of her home medications Objective - Vital Signs Vital signs: Vital Signs Temp 98.4 F 10/23/19 07:00 Pulse 70 10/23/19 08:00 Resp 18 10/23/19 08:00 BP 94/48 10/23/19 07:00 Pulse Ox 90 L 10/23/19 07:00 Intake & Output 10/22/19 10/23/19 10/23/19 18:59 06:59 18:59 Output Total 450 375 Balance -450 -375 Output: Urine 450 375 Other: Voiding Method Indwelling Catheter - Exam - Constitutional General appearance: average body habitus, cooperative, disheveled - EENT Eyes: EOMI, PERRLA ENT: hard of hearing Ears: bilateral: normal - Neck Neck: normal ROM Carotids: bilateral: upstroke normal Thyroid: bilateral: normal size - Respiratory Respiratory: left: diminished - Cardiovascular Rhythm: regular Heart sounds: normal: S1, S2 - Gastrointestinal General gastrointestinal: decreased bowel sounds, normal bowel sounds, soft - Neurologic Neurologic: CNII-XII intact - Musculoskeletal Musculoskeletal: gait normal, generalized weakness, strength equal bilaterally - Psychiatric Psychiatric: A&O x's 3, appropriate affect, intact judgment & insight - Labs CBC & Chem 7: 10/23/19 07:27 10/23/19 07:27 Labs: Abnormal Lab Results - Last 24 Hours (Table) 10/23/19 10/23/19 Range/Units 07:27 07:27 WBC 10.8 H (3.8-10.6) k/uL RBC 2.04 L (3.80-5.40) m/uL Hct 22.2 L (34.0-46.0) % MCV 108.7 H (80.0-100.0) fL RDW 18.0 H (11.5-15.5) % Macrocytosis Marked A Chloride 115 H (98-107) mmol/L Carbon Dioxide 21 L (22-30) mmol/L BUN 66 H (7-17) mg/dL Creatinine 2.15 H (0.52-1.04) mg/dL Calcium 7.8 L (8.4-10.2) mg/dL Alkaline Phosphatase 130 H (38-126) U/L Albumin 2.0 L (3.5-5.0) g/dL Microbiology - Last 24 Hours (Table) 10/22/19 01:57 Blood Culture - Preliminary Blood No Growth after 24 hours 10/22/19 01:38 Urine Culture - Preliminary Urine,Voided Assessment and Plan Assessment: Pleural effusion left-sided moderate left-sided atelectasis versus pneumonia with moderate pleural effusion Congestive heart failure likely acute on chronic systolic/diastolic heart failure Chronic kidney disease stage III UTI/Sirs-like process Altered mental status likely multifactorial including an associated with pneumonia congestive heart failure and UTI History of GI bleed cirrhosis liver Plan: Proceed with left-sided thoracentesis Overall plan is to continue antibiotics follow up on urine culture results, we'll continue supportive care consider reviewed ultrasound of the chest Time with Patient: Greater than 30
[2019-10-23 12:12] LABS: Eosinophils # (M) 0.22 k/uL (0-0.7); Lymphocytes # (M) 0.43 k/uL (1.0-4.8); Monocytes # (M) 0.11 k/uL (0-1.0); Neutrophils # (M) 10.04 k/uL (1.3-7.7); Neutrophils % (M) 93 %; Nucleated Red Blood Cells 0 /100 WBC (0-0); Total Cells Counted 100
[2019-10-23 12:13] LABS: Poikilocytosis (M) Present; Polychromasia Present
[2019-10-23] MEDS ORDERED: ANIDULAFUNGIN 200 MG in SODIUM CHLORIDE 0.9% 200 ML IVPB ONE (13:32)
[2019-10-23 14:31] LABS: Appearance,Urine Turbid (Clear); Bacteria,Urine Few /hpf; Bilirubin,Urine Negative (Negative); Blood,Urine Large (Negative); Budding Yeast,Urine Moderate /hpf; Color,Urine Light Red; Glucose,Urine (UA) Negative (Negative); Hyaline Casts,Urine 21 /lpf (0-2); Ketones,Urine Negative (Negative); Leukocyte Esterase,Urine Large (Negative); Mucus,Urine Rare /hpf; Nitrite,Urine Negative (Negative); Protein,Urine 1+ (Negative); RBC,Urine >182 /hpf (0-5); Specific Gravity,Urine 1.014 (1.001-1.035); Squamous Epithelial Cell,Urine 4 /hpf (0-4); Urobilinogen,Urine <2.0 mg/dL (<2.0); WBC,Urine >182 /hpf (0-5)
--- NOTE | 2019-10-23 15:25 | PN ---
PROGRESS NOTE DATE OF SERVICE: 10/23/2019 REASON FOR FOLLOWUP: Urinary tract infection. INTERVAL HISTORY: The patient is currently afebrile. The patient is feeling better, breathing comfortably. The patient is more awake and alert today. Denies having any cough. No abdominal pain or diarrhea. PHYSICAL EXAMINATION: Blood pressure 94/58 with a pulse of 70, temperature 98.4. She is 90% on 2 L nasal cannula. General description is an elderly female lying in bed in no distress. RESPIRATORY SYSTEM: Unlabored breathing. Clear to auscultation anteriorly. HEART: S1, S2. Regular rate and rhythm. ABDOMEN: Soft. No tenderness. LABS: Hemoglobin is down to 6.9, white count 10.8. Creatinine is 2.15. Urine is showing Tammy albicans. DIAGNOSTIC IMPRESSION AND PLAN: Patient admitted to hospital with mental status changes which are likely multifactorial with a possible component of urinary tract infection. Urine is showing tammy. Will add oral Diflucan. Did have abdominal pain, and hemoglobin needs to be monitored closely. Continue with supportive care. MMODL / IJN: [id number] /
--- NOTE | 2019-10-23 18:50 | P.PCN ---
Date of Procedure: 10/23/19 Preoperative Diagnosis: Left pleural effusion Postoperative Diagnosis: As above Procedure(s) Performed: Left thoracentesis Anesthesia: local Surgeon: Gonzalo Back Estimated Blood Loss (ml): 2 Condition: stable Disposition: floor Indications for Procedure: Shortness of breath, and left pleural effusion, severe anemia, history of stomach cancer Operative Findings: As below Description of Procedure: Patient explained about the procedure findings on ultrasound discussed with the patient at length, procedure explained in detail risk complication side effect have been discussed alternatives have been discussed, 1% lidocaine was infiltrated in left posterior lateral thoracic wall, ultrasound guidance was utilized to locate the maximum depth of the fluid, after infiltrating the 1% lidocaine catheter and the needle was advanced reached the pleural space and fluid was aspirated following giving more anesthesia local, and bleeding was withdrawn and a stab incision of 18 cm size was done from there catheter in needle was placed needle was withdrawn catheter left in position and 750 mL of fluid which is blood-tinged have been aspirated being sent for Gram stain and culture cytology cell count and differential along with biochemistry patient tolerated procedure well no complication noted chest x-rays pending
--- NOTE | 2019-10-23 19:01 | XR ---
EXAMINATION TYPE: XR chest 1V portable DATE OF EXAM: 10/23/2019 COMPARISON: 10/21/2019 HISTORY: Thoracentesis TECHNIQUE: Single view FINDINGS: There is pulmonary interstitial edema. There is some blunting of the costophrenic angles. T here is right central venous catheter with tip in the right atrium. Thoracic aorta is atheromatous. IMPRESSION: Pulmonary edema that could relate to congestive heart failure. There is decrease in the l eft pleural fluid compared to last exam. Pneumonia not excluded.
[2019-10-23] MEDS: GABAPENTIN 100 MG CAP PO SCH (20:38)
[2019-10-23] MEDS: DONEPEZIL 10 MG TAB PO SCH (20:38)
[2019-10-23 21:39] LABS: Appearance,BF Bloody; Color,BF Red; Nucleated Cells, Body Fluid 1233 /uL
[2019-10-23 21:40] LABS: RBC, Body Fluid 78800 /uL
[2019-10-23 21:42] LABS: Mononuclear WBC,Body Fluid 90 %; Polynuclear WBC,Body Fluid 10 %; Total Cells Counted,Body Fluid 100
--- NOTE | 2019-10-23 22:25 | P.PN ---
Subjective Progress Note Date: 10/23/19 Patient asleep. Did not wake her up. No myoclonic jerks observed. Objective - Vital Signs Vital signs: Vital Signs Temp 98.1 F 10/23/19 16:38 Pulse 70 10/23/19 15:07 Resp 16 10/23/19 16:38 BP 100/48 10/23/19 16:38 Pulse Ox 97 10/23/19 15:00 Intake & Output 10/23/19 10/23/19 10/24/19 06:59 18:59 06:59 Intake Total 310 Output Total 375 550 Balance -375 -240 Intake: Blood Product 310 Rc As-1 Unit 310 [id number] Output: Urine 375 550 Other: Voiding Method Indwelling Catheter - Exam Patient asleep. - Labs CBC & Chem 7: 10/23/19 07:27 10/23/19 07:27 Labs: Abnormal Lab Results - Last 24 Hours (Table) 10/23/19 10/23/19 10/23/19 Range/Units 07:27 07:27 10:50 WBC 10.8 H (3.8-10.6) k/uL RBC 2.04 L (3.80-5.40) m/uL Hgb 6.9 L* D (11.4-16.0) gm/dL Hct 22.2 L (34.0-46.0) % MCV 108.7 H (80.0-100.0) fL RDW 18.0 H (11.5-15.5) % Plt Count 87 L (150-450) k/uL Neutrophils # (Manual) 10.04 H (1.3-7.7) k/uL Lymphocytes # (Manual) 0.43 L (1.0-4.8) k/uL Macrocytosis Marked A Chloride 115 H (98-107) mmol/L Carbon Dioxide 21 L (22-30) mmol/L BUN 66 H (7-17) mg/dL Creatinine 2.15 H (0.52-1.04) mg/dL Calcium 7.8 L (8.4-10.2) mg/dL Alkaline Phosphatase 130 H (38-126) U/L Albumin 2.0 L (3.5-5.0) g/dL Urine Appearance (Clear) Urine Protein (Negative) Urine Blood (Negative) Ur Leukocyte Esterase (Negative) Urine RBC (0-5) /hpf Urine WBC (0-5) /hpf Urine WBC Clumps (None) /hpf Urine Bacteria (None) /hpf Hyaline Casts (0-2) /lpf Urine Mucus (None) /hpf Urine Yeast (Budding) (None) /hpf Crossmatch See Detail 10/23/19 Range/Units 13:32 WBC (3.8-10.6) k/uL RBC (3.80-5.40) m/uL Hgb (11.4-16.0) gm/dL Hct (34.0-46.0) % MCV (80.0-100.0) fL RDW (11.5-15.5) % Plt Count (150-450) k/uL Neutrophils # (Manual) (1.3-7.7) k/uL Lymphocytes # (Manual) (1.0-4.8) k/uL Macrocytosis Chloride (98-107) mmol/L Carbon Dioxide (22-30) mmol/L BUN (7-17) mg/dL Creatinine (0.52-1.04) mg/dL Calcium (8.4-10.2) mg/dL Alkaline Phosphatase (38-126) U/L Albumin (3.5-5.0) g/dL Urine Appearance Turbid H (Clear) Urine Protein 1+ H (Negative) Urine Blood Large H (Negative) Ur Leukocyte Esterase Large H (Negative) Urine RBC >182 H (0-5) /hpf Urine WBC >182 H (0-5) /hpf Urine WBC Clumps Many H (None) /hpf Urine Bacteria Few H (None) /hpf Hyaline Casts 21 H (0-2) /lpf Urine Mucus Rare H (None) /hpf Urine Yeast (Budding) Moderate H (None) /hpf Crossmatch Microbiology - Last 24 Hours (Table) 10/23/19 13:32 Urine Culture - Preliminary Urine,Voided 10/22/19 01:38 Urine Culture - Preliminary Urine,Voided Tammy albicans 10/22/19 01:57 Blood Culture - Preliminary Blood No Growth after 24 hours Assessment and Plan Assessment: * Altered mental status due to toxic metabolic encephalopathy. Causes multifa ctorial. Worsening CHF, possible pneumonia/pleural effusion, anemia, and acute on chronic renal insufficiency and medications the likely cause. * Myoclonic jerks. Patient is on a high-dose of Neurontin, and with acute renal insufficiency, likely leading to toxicity. * Hepatic cirrhosis and esophageal varices * Chronic anemia Plan: * Continue Neurontin low dose 200 mg twice a day. * Your medical management. * Carotid Doppler revealed > 70% stenosis left ICA, and around 70% right ICA. Consider vascular surgical consultation. * Patient's B12, folate are normal. TSH is 16.70, on 10/09/2019. May need adjustment of thyroid hormone replacement therapy. * Dr. Valdez covering over the weekend. Please call neurology if any concerns.
[2019-10-24] MEDS: DIPHENOX-ATROP 2.5-0.025 MG 1 EACH TAB PO SCH ×4 (01:59→20:14)
--- NOTE | 2019-10-24 02:31 | PN ---
PROGRESS NOTE Altered mental status. UTI. Continues to improve, status post one unit of blood. Metabolic encephalopathy is improving. Cardiovascular S1-S2. Lungs clear. GI soft. Hematology: Negative Homans. ASSESSMENT: 1. Urinary tract infection. 2. Altered mental status. 3. Gastrointestinal bleed. PROGNOSIS: Guarded. Possible discharge back once his blood transfusion is done, hemoglobin is stabilized. MMODL / IJN: [id number] /
[2019-10-24 04:01] LABS: Total Protein, Body Fluid 2740 mg/dL
[2019-10-24 04:15] LABS: Glucose, BF Source Pleural Fluid; Glucose, Body Fluid 112 mg/dL; LDH, Body Fluid Source Pleural Fluid
[2019-10-24] MEDS: LEVOTHYROXINE 25 MCG TAB PO SCH (05:27)
[2019-10-24] MEDS: PANTOPRAZOLE 40 MG TABLET PO SCH ×2 (08:29→17:32)
[2019-10-24] MEDS: amLODIPine 5 MG TAB PO SCH (08:29)
[2019-10-24] MEDS: MEMANTINE 5 MG TAB PO SCH ×2 (08:29→17:32)
[2019-10-24] MEDS: GABAPENTIN 100 MG CAP PO SCH ×2 (08:29→20:14)
[2019-10-24] MEDS: FUROSEMIDE 40 MG TAB PO SCH (08:29)
[2019-10-24] MEDS: ESCITALOPRAM 10 MG TAB PO SCH (08:29)
[2019-10-24] MEDS: PROPRANOLOL 10 MG TAB PO SCH ×3 (08:30→17:32)
[2019-10-24] MEDS: TRIAMCINOLONE 0.1% CREAM 80 GM TUBE TOPICAL SCH ×2 (08:30→20:14)
[2019-10-24] MEDS: NYSTATIN 100,000UNIT/GM CREAM 30 GM TUBE TOPICAL SCH ×2 (08:30→20:14)
[2019-10-24] MEDS: NON FORMULARY DRUG (Magic Butt Paste 1 APPLIC) TOPICAL SCH ×2 (08:35→20:16)
--- NOTE | 2019-10-24 09:01 | P.PN ---
Subjective Progress Note Date: 10/24/19 Principal diagnosis: Left-sided pleural effusion left-sided atelectasis versus pneumonia Congestive heart failure likely acute on chronic systolic/diastolic heart failure Chronic kidney disease stage III UTI/Sirs-like process Altered mental status likely multifactorial including an associated with pneumonia congestive heart failure and UTI History of GI bleed cirrhosis liver 10/24/2019, patient seen eval examined during the rounds labs reviewed medications reviewed care plan discussed patient is awake and alert, pleasantly confused at times, she has successful thoracentesis of the left side and 750 mL of fluid hemorrhagic was removed, post procedure chest x-ray stable small residual effusion still present, pleural fluid findings reviewed exudative effusion, cytology is pending, the Gram stain and culture so far has been negative 10/23/2019, patient seen eval examined during rounds labs reviewed more awake and alert oriented 2 denies any chest pain does have some shortness of breath, labs reviewed medications reviewed ultrasound finding reviewed's as well as hard copies of left-sided him is reviewed, patient has a moderate pleural effusion on the left side given chronic kidney disease unlikely to respond to furosemide will require thoracentesis to drain the fluid, procedure explained to the patient will also obtain consent patient seen eval reexamined on medical floor, patient originally has been admitted into the hospital with altered mental status thought to be related to cirrhosis and elevated ammonia level but currently patient is arousable and follows simple commands, her chest x-ray and computed tomography scan reviewed, computed tomography 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, chest x-ray so history of bilateral small pulmonary edema effusion bilateral large on the left side compared right side, possible atelectasis appeared to be present pneumonia cannot be excluded involving the left lower lobe, evidence of chronic kidney disease stage III, BNP is very high 2650, urinary and is positive for large leukocyte esterase trace RBCs, urine culture results are pending, patient is currently on Rocephin and continuation of her home medications Objective - Vital Signs Vital signs: Vital Signs Temp 99.3 F 10/24/19 01:49 Pulse 73 10/24/19 01:49 Resp 18 10/23/19 20:00 BP 113/53 10/24/19 01:49 Pulse Ox 92 L 10/24/19 01:49 Intake & Output 10/23/19 10/24/19 10/24/19 18:59 06:59 18:59 Intake Total 310 150 Output Total 550 Balance -240 150 Intake: Oral 150 Blood Product 310 Rc As-1 Unit 310 [id number] Output: Urine 550 Other: Voiding Method Indwelling Catheter # Voids 425 - Exam - Constitutional General appearance: average body habitus, cooperative, disheveled - EENT Eyes: EOMI, PERRLA ENT: hard of hearing Ears: bilateral: normal - Neck Neck: normal ROM Carotids: bilateral: upstroke normal Thyroid: bilateral: normal size - Respiratory Respiratory: left: diminished - Cardiovascular Rhythm: regular Heart sounds: normal: S1, S2 - Gastrointestinal General gastrointestinal: decreased bowel sounds, normal bowel sounds, soft - Neurologic Neurologic: CNII-XII intact - Musculoskeletal Musculoskeletal: gait normal, generalized weakness, strength equal bilaterally - Psychiatric Psychiatric: A&O x's 3, appropriate affect, intact judgment & insight - Labs CBC & Chem 7: 10/23/19 07:27 10/23/19 07:27 Labs: Abnormal Lab Results - Last 24 Hours (Table) 10/23/19 10/23/19 10/23/19 Range/Units 07:27 10:50 13:32 WBC 10.8 H (3.8-10.6) k/uL RBC 2.04 L (3.80-5.40) m/uL Hgb 6.9 L* D (11.4-16.0) gm/dL Hct 22.2 L (34.0-46.0) % MCV 108.7 H (80.0-100.0) fL RDW 18.0 H (11.5-15.5) % Plt Count 87 L (150-450) k/uL Neutrophils # (Manual) 10.04 H (1.3-7.7) k/uL Lymphocytes # (Manual) 0.43 L (1.0-4.8) k/uL Macrocytosis Marked A Urine Appearance Turbid H (Clear) Urine Protein 1+ H (Negative) Urine Blood Large H (Negative) Ur Leukocyte Esterase Large H (Negative) Urine RBC >182 H (0-5) /hpf Urine WBC >182 H (0-5) /hpf Urine WBC Clumps Many H (None) /hpf Urine Bacteria Few H (None) /hpf Hyaline Casts 21 H (0-2) /lpf Urine Mucus Rare H (None) /hpf Urine Yeast (Budding) Moderate H (None) /hpf Crossmatch See Detail Microbiology - Last 24 Hours (Table) 10/23/19 17:00 Gram Stain - Preliminary Pleural Fluid Body Fluid Culture - Preliminary 10/22/19 01:57 Blood Culture - Preliminary Blood No Growth after 48 hours 10/23/19 17:00 Acid Fast Bacilli Culture - Preliminary Pleural Fluid 10/23/19 17:00 Fungal Culture - Preliminary Pleural Fluid 10/23/19 13:32 Urine Culture - Preliminary Urine,Voided 10/22/19 01:38 Urine Culture - Preliminary Urine,Voided Tammy albicans Assessment and Plan Assessment: Exudative Pleural effusion left-sided moderate status post left-sided thoracentesis left-sided atelectasis versus pneumonia with moderate pleural effusion Congestive heart failure likely acute on chronic systolic/diastolic heart failure Chronic kidney disease stage III UTI/Sirs-like process Altered mental status likely multifactorial including an associated with pneumonia congestive heart failure and UTI History of GI bleed cirrhosis liver Plan: Pleural fluid findings reviewed continue current plan of care, follow up on cytology Time with Patient: Greater than 30
[2019-10-24 11:41] LABS: Glucose,Whole Blood 148 mg/dL (75-99)
[2019-10-24 13:39] LABS: Anisocytosis Moderate; HCT 25.6 % (34.0-46.0); HGB 7.7 gm/dL (11.4-16.0); Hypochromasia Marked; MCH 31.5 pg (25.0-35.0); MCHC 30.2 g/dL (31.0-37.0); MCV 104.2 fL (80.0-100.0); Macrocytosis Marked; Mean Platelet Volume 12.6; RBC 2.45 m/uL (3.80-5.40); RDW 20.2 % (11.5-15.5); WBC 13.1 k/uL (3.8-10.6)
[2019-10-24 13:48] LABS: Platelet Count 79 k/uL (150-450)
[2019-10-24] MEDS: ANIDULAFUNGIN 100 MG in SODIUM CHLORIDE 0.9% 100 ML IVPB SCH (13:59)
[2019-10-24 14:31] LABS: Eosinophils # (M) 0.13 k/uL (0-0.7); Lymphocytes # (M) 0.92 k/uL (1.0-4.8); Monocytes # (M) 0.52 k/uL (0-1.0); Neutrophils # (M) 11.53 k/uL (1.3-7.7); Neutrophils % (M) 88 %; Nucleated Red Blood Cells 0 /100 WBC (0-0); Total Cells Counted 100
[2019-10-24 14:32] LABS: Poikilocytosis (M) Present
--- NOTE | 2019-10-24 16:14 | P.PN ---
Subjective Progress Note Date: 10/24/19 Principal diagnosis: this is a 74 -year-old female who was recently admitted with altered mental status, GI bleed, and acute urinary tract infection and is being closely monitored. Patient is currently maintained on IV antibiotics in the form of ceftriaxone and will continue at this time. infectious disease is following. Urine cultures showing Tammy albicans. left-sided thoracentesis for pleural effusion with removal of approximately 750 mL's of fluid. patient's mentation has improvedand is being followed by neurology. patient's hemoglobin yesterday was found to be 6.9 and received a unit of PRBCs with repeat hemoglobin today is 7.7. kidney functions continue to worsen and current creatinine is 2.15 with a BUN of 66. Nephrology consulted and pending at this time. Objective - Vital Signs Vital signs: Vital Signs Temp 98.1 F 10/24/19 15:00 Pulse 63 10/24/19 15:00 Resp 18 10/24/19 15:00 BP 96/57 10/24/19 15:00 Pulse Ox 96 10/24/19 15:00 Intake & Output 10/23/19 10/24/19 10/24/19 18:59 06:59 18:59 Intake Total 310 150 Output Total 550 400 Balance -240 150 -400 Intake: Oral 150 Blood Product 310 Rc As-1 Unit 310 [id number] Output: Urine 550 400 Other: Voiding Method Indwelling Catheter Indwelling Catheter # Voids 425 - Exam Gen: This is a 74-year-old female lying in bed, lethargic but arousable, alert and oriented 2-3, well-developed, well-nourished HEENT: Head is atraumatic, normocephalic. Pupils equal, round. Sclerae is anicteric. NECK: Supple. No JVD. No lymphadenopathy. No thyromegaly. LUNGS: diminished breath sounds bilaterallywith some scattered rhonchi noted. No intercostal retractions. HEART: Regular rate and rhythm. No murmur. ABDOMEN: Soft. Bowel sounds are present. No masses. No tenderness. EXTREMITIES: No pedal edema. No calf tenderness. NEUROLOGICAL: Patient is awake, alert and oriented x2-3. diffusely weak - Labs CBC & Chem 7: 10/24/19 13:25 10/23/19 07:27 Labs: Abnormal Lab Results - Last 24 Hours (Table) 10/23/19 10/24/19 10/24/19 Range/Units 10:50 11:40 13:25 WBC 13.1 H (3.8-10.6) k/uL RBC 2.45 L (3.80-5.40) m/uL Hgb 7.7 L (11.4-16.0) gm/dL Hct 25.6 L (34.0-46.0) % MCV 104.2 H (80.0-100.0) fL MCHC 30.2 L (31.0-37.0) g/dL RDW 20.2 H (11.5-15.5) % Plt Count 79 L (150-450) k/uL Neutrophils # (Manual) 11.53 H (1.3-7.7) k/uL Lymphocytes # (Manual) 0.92 L (1.0-4.8) k/uL Macrocytosis Marked A POC Glucose (mg/dL) 148 H (75-99) mg/dL Crossmatch See Detail Microbiology - Last 24 Hours (Table) 10/22/19 01:38 Urine Culture - Final Urine,Voided Tammy albicans 10/23/19 17:00 Gram Stain - Preliminary Pleural Fluid Body Fluid Culture - Preliminary 10/22/19 01:57 Blood Culture - Preliminary Blood No Growth after 48 hours 10/23/19 17:00 Acid Fast Bacilli Culture - Preliminary Pleural Fluid 10/23/19 17:00 Fungal Culture - Preliminary Pleural Fluid 10/23/19 13:32 Urine Culture - Preliminary Urine,Voided Assessment and Plan Assessment: metabolic encephalopathy Urinary tract infection Altered mental status GI bleed Left pleural effusion Plan: Continue current medications, management, and symptomatic treatment. Nephrology consulted for elevated creatinine. Multiple medical consultations including pulmonary and infectious disease are following. She was maintained on IV antibiotics and will continue at this time. Will repeat a.m. labs and monitor hemoglobin. Further recommendations to follow.
[2019-10-24] MEDS: DONEPEZIL 10 MG TAB PO SCH (20:14)
[2019-10-24] MEDS: SODIUM CHLORIDE 0.9% 1,000 ML IV SCH (20:17)
--- NOTE | 2019-10-24 22:59 | PN ---
PROGRESS NOTE DATE OF SERVICE: 10/24/2019 REASON FOR FOLLOWUP: Urinary tract infection. INTERVAL HISTORY: Patient is currently afebrile. The patient is breathing comfortably. Denies having any chest pain or cough. No nausea, no abdominal pain or diarrhea. PHYSICAL EXAMINATION: Blood pressure 103/55 with a pulse of 61, temperature 97.9. She is 97% on room air. General description is an elderly female lying in bed in no distress. Respiratory system: Unlabored breathing. Clear to auscultation anteriorly. Heart S1, S2. Regular rate and rhythm. Abdomen soft. No tenderness. LABS: Hemoglobin 10.7, white count 16.1. DIAGNOSTIC IMPRESSION AND PLAN: Patient with and mental status changes likely multifactorial, possible component of urinary tract infection. Urine showing Tammy albicans. Patient did have medications that currently include the use of Diflucan and she has been started on Eraxis to continue and monitor clinical course closely. MMODL / IJN: [id number] /
[2019-10-25] MEDS: DIPHENOX-ATROP 2.5-0.025 MG 1 EACH TAB PO SCH ×4 (02:19→20:43)
[2019-10-25] MEDS: LEVOTHYROXINE 25 MCG TAB PO SCH (05:13)
[2019-10-25] MEDS: SODIUM CHLORIDE 0.9% 1,000 ML IV SCH (05:19)
[2019-10-25 08:25] LABS: Anisocytosis Slight; HGB 7.5 gm/dL (11.4-16.0); Hypochromasia Marked; MCH 32.3 pg (25.0-35.0); MCHC 31.3 g/dL (31.0-37.0); Macrocytosis Marked; Mean Platelet Volume 12.1; RBC 2.33 m/uL (3.80-5.40); RDW 19.8 % (11.5-15.5)
[2019-10-25] MEDS: NON FORMULARY DRUG (Magic Butt Paste 1 APPLIC) TOPICAL SCH ×2 (08:25→20:54)
[2019-10-25 08:30] LABS: Platelet Count 66 k/uL (150-450)
[2019-10-25] MEDS: MEMANTINE 5 MG TAB PO SCH ×2 (08:34→16:08)
[2019-10-25] MEDS: GABAPENTIN 100 MG CAP PO SCH ×2 (08:34→20:43)
[2019-10-25] MEDS: PANTOPRAZOLE 40 MG TABLET PO SCH ×2 (08:34→16:09)
[2019-10-25] MEDS: PROPRANOLOL 10 MG TAB PO SCH ×3 (08:35→16:08)
[2019-10-25] MEDS: TRIAMCINOLONE 0.1% CREAM 80 GM TUBE TOPICAL SCH ×2 (08:35→20:44)
[2019-10-25] MEDS: ESCITALOPRAM 10 MG TAB PO SCH (08:35)
[2019-10-25] MEDS: NYSTATIN 100,000UNIT/GM CREAM 30 GM TUBE TOPICAL SCH ×2 (08:35→20:44)
[2019-10-25 08:36] LABS: Albumin 1.9 g/dL (3.5-5.0); Calcium 7.8 mg/dL (8.4-10.2); Potassium 4.2 mmol/L (3.5-5.1); Total Bilirubin 0.6 mg/dL (0.2-1.3); Total Protein 6.3 g/dL (6.3-8.2)
--- NOTE | 2019-10-25 09:54 | P.PN ---
Subjective Progress Note Date: 10/25/19 Principal diagnosis: Left-sided pleural effusion left-sided atelectasis versus pneumonia Congestive heart failure likely acute on chronic systolic/diastolic heart failure Chronic kidney disease stage III UTI/Sirs-like process Altered mental status likely multifactorial including an associated with pneumonia congestive heart failure and UTI History of GI bleed cirrhosis liver 10/25/2019, patient seen eval examined during the rounds labs reviewed medications reviewed care plan discussed, more awake and alert, answers from pleural fluid is negative, hemoglobin remained stable 7.5 white cell count down to 10,900, cytology pending 10/24/2019, patient seen eval examined during the rounds labs reviewed medications reviewed care plan discussed patient is awake and alert, pleasantly confused at times, she has successful thoracentesis of the left side and 750 mL of fluid hemorrhagic was removed, post procedure chest x-ray stable small residual effusion still present, pleural fluid findings reviewed exudative effusion, cytology is pending, the Gram stain and culture so far has been negative 10/23/2019, patient seen eval examined during rounds labs reviewed more awake and alert oriented 2 denies any chest pain does have some shortness of breath, labs reviewed medications reviewed ultrasound finding reviewed's as well as hard copies of left-sided him is reviewed, patient has a moderate pleural effusion on the left side given chronic kidney disease unlikely to respond to furosemide will require thoracentesis to drain the fluid, procedure explained to the james ent will also obtain consent patient seen eval reexamined on medical floor, patient originally has been admitted into the hospital with altered mental status thought to be related to cirrhosis and elevated ammonia level but currently patient is arousable and follows simple commands, her chest x-ray and computed tomography scan reviewed, computed tomography 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, chest x-ray so history of bilateral small pulmonary edema effusion bilateral large on the left side compared right side, possible at electasis appeared to be present pneumonia cannot be excluded involving the left lower lobe, evidence of chronic kidney disease stage III, BNP is very high 2650, urinary and is positive for large leukocyte esterase trace RBCs, urine culture results are pending, patient is currently on Rocephin and continuation of her home medications Objective - Vital Signs Vital signs: Vital Signs Temp 99.1 F 10/25/19 00:32 Pulse 63 10/25/19 08:39 Resp 16 10/25/19 08:39 BP 109/59 10/25/19 00:32 Pulse Ox 94 L 10/25/19 00:32 Intake & Output 10/24/19 10/25/19 10/25/19 18:59 06:59 18:59 Intake Total 150 Output Total 400 1000 Balance -400 -850 Intake: Oral 150 Output: Urine 400 1000 Other: Voiding Method Indwelling Catheter Indwelling Catheter # Voids 425 - Exam - Constitutional General appearance: average body habitus, cooperative, disheveled - EENT Eyes: EOMI, PERRLA ENT: hard of hearing Ears: bilateral: normal - Neck Neck: normal ROM Carotids: bilateral: upstroke normal Thyroid: bilateral: normal size - Respiratory Respiratory: left: diminished - Cardiovascular Rhythm: regular Heart sounds: normal: S1, S2 - Gastrointestinal General gastrointestinal: decreased bowel sounds, normal bowel sounds, soft - Neurologic Neurologic: CNII-XII intact - Musculoskeletal Musculoskeletal: gait normal, generalized weakness, strength equal bilaterally - Psychiatric Psychiatric: A&O x's 3, appropriate affect, intact judgment & insight - Labs CBC & Chem 7: 10/25/19 08:05 10/25/19 08:05 Labs: Abnormal Lab Results - Last 24 Hours (Table) 10/24/19 10/24/19 10/25/19 Range/Units 11:40 13:25 08:05 WBC 13.1 H 10.9 H (3.8-10.6) k/uL RBC 2.45 L 2.33 L (3.80-5.40) m/uL Hgb 7.7 L 7.5 L (11.4-16.0) gm/dL Hct 25.6 L 24.0 L (34.0-46.0) % MCV 104.2 H 103.0 H (80.0-100.0) fL MCHC 30.2 L (31.0-37.0) g/dL RDW 20.2 H 19.8 H (11.5-15.5) % Plt Count 79 L (150-450) k/uL Neutrophils # (Manual) 11.53 H (1.3-7.7) k/uL Lymphocytes # (Manual) 0.92 L (1.0-4.8) k/uL Macrocytosis Marked A Marked A Chloride (98-107) mmol/L Carbon Dioxide (22-30) mmol/L BUN (7-17) mg/dL Creatinine (0.52-1.04) mg/dL Glucose (74-99) mg/dL POC Glucose (mg/dL) 148 H (75-99) mg/dL Calcium (8.4-10.2) mg/dL Alkaline Phosphatase (38-126) U/L Albumin (3.5-5.0) g/dL 10/25/19 Range/Units 08:05 WBC (3.8-10.6) k/uL RBC (3.80-5.40) m/uL Hgb (11.4-16.0) gm/dL Hct (34.0-46.0) % MCV (80.0-100.0) fL MCHC (31.0-37.0) g/dL RDW (11.5-15.5) % Plt Count (150-450) k/uL Neutrophils # (Manual) (1.3-7.7) k/uL Lymphocytes # (Manual) (1.0-4.8) k/uL Macrocytosis Chloride 113 H (98-107) mmol/L Carbon Dioxide 21 L (22-30) mmol/L BUN 60 H (7-17) mg/dL Creatinine 2.03 H (0.52-1.04) mg/dL Glucose 109 H (74-99) mg/dL POC Glucose (mg/dL) (75-99) mg/dL Calcium 7.8 L (8.4-10.2) mg/dL Alkaline Phosphatase 127 H (38-126) U/L Albumin 1.9 L (3.5-5.0) g/dL Microbiology - Last 24 Hours (Table) 10/22/19 01:57 Blood Culture - Preliminary Blood No Growth after 72 hours 10/23/19 13:32 Urine Culture - Final Urine,Voided Tammy albicans 10/23/19 17:00 Acid Fast Bacilli Smear - Final Pleural Fluid Acid Fast Bacilli Culture - Preliminary 10/23/19 17:00 Gram Stain - Preliminary Pleural Fluid Body Fluid Culture - Preliminary 10/22/19 01:38 Urine Culture - Final Urine,Voided Tammy albicans Assessment and Plan Assessment: Exudative Pleural effusion left-sided moderate status post left-sided thoracentesis, and doing well left-sided atelectasis versus pneumonia with moderate pleural effusion Congestive heart failure likely acute on chronic systolic/diastolic heart failure Chronic kidney disease stage III UTI/Sirs-like process Altered mental status likely multifactorial including an associated with pneumo an congestive heart failure and UTI History of GI bleed cirrhosis liver Plan: Pleural fluid findings reviewed continue current plan of care, follow up on cytology, increase activity as tolerated follow hemoglobin closely Time with Patient: Greater than 30
[2019-10-25 10:51] LABS: WBC 10.8 k/uL (3.8-10.6)
[2019-10-25 10:52] LABS: Eosinophils # (M) 0.32 k/uL (0-0.7); Lymphocytes # (M) 1.08 k/uL (1.0-4.8); Monocytes # (M) 0.32 k/uL (0-1.0); Neutrophils # (M) 9.18 k/uL (1.3-7.7); Neutrophils % (M) 85 %; Nucleated Red Blood Cells 0 /100 WBC (0-0); Total Cells Counted 200
[2019-10-25 10:53] LABS: Large Platelets Present
--- NOTE | 2019-10-25 11:36 | CONS ---
CONSULTATION REASON FOR CONSULT: Renal failure. HISTORY OF PRESENT ILLNESS: The patient is a 74-year-old female who was initially admitted to the hospital on 10/21/2019 for altered mentation. Patient was also anemic with evidence of GI bleed. She was found to have a urinary tract infection. Serum creatinine was 1.9 mg/dL on October 20, it is at 2.0 now. Review of previous labs shows a serum creatinine staying at about 1.3-1.9 mg/dL in August of 2019 and in May it has been 1.2-1.1 mg/dL. Patient's blood pressure is currently on the lower side with systolic in the 90s as of yesterday. She was maintained on Lasix which is now discontinued. I do not see any IV fluids. Patient has not received any IV contrast this admission. She has an indwelling An catheter. She may have had some urine retention prior to insertion of catheter as I see a urine of 550 when initial catheter was placed. PAST MEDICAL HISTORY: Hypertension, atrial fibrillation, CHF, COPD, CVA, TIA, gastroesophageal reflux disease, hypertension, osteoarthritis, hyperlipidemia, uterine cancer status post chemotherapy six years ago with neuropathy currently in both hands and feet. PAST SURGICAL HISTORY: Hysterectomy, tonsillectomy, colonoscopy, cataract surgery, EGD. SOCIAL HISTORY: Patient is a former smoker. No history of drug abuse or alcohol abuse currently. MEDICATIONS: Medications prior to admission included iron, Aricept, Synthroid, Zyrtec, Lexapro, Namenda, Lasix, magnesium, Imodium, K-Dur, vitamin B, Requip, Ultram, Aranesp, gabapentin, Levaquin, omeprazole, Inderal, Norvasc, Dulcolax. ALLERGIES: None. REVIEW OF SYSTEMS: As per HPI. Other systems negative. No current bleeding noted at this time. PHYSICAL EXAMINATION: Patient is currently awake, comfortable, she is not in any acute distress. Blood pressure is 109/59, heart rate 69 per minute, she is afebrile. Examination of the heart S1, S2. Examination of the lungs, bilateral breath sounds are heard. Decreased breath sounds at bases, mainly in the left side. Examination lower extremities shows chronic skin changes. Trace edema is noted. SOFTWOOD FALLER exam grossly intact. LABS: Show sodium 138, potassium 4.2, chloride 113, CO2 is 21, BUN 60, creatinine 2.03, hemoglobin 7.5 g/dL. ASSESSMENT: 1. Acute kidney injury, mostly associated with hypotension hypoperfusion, currently nonoliguric. Patient has an indwelling An catheter. She may have had an element of urine retention as well. No nephrotoxic agents on board. Currently patient is mildly volume overloaded. We can continue with the Lasix and we can repeat a chest x-ray in a.m. Definitely the acute kidney injury has been exacerbated by ongoing anemia as well. 2. Chronic kidney disease, NKF stage 3b to 4 with baseline creatinine most recently around 1.4-1.3 mg/dL in August of 2019. UA showed no proteinuria On 10/22/2019. Etiology is nephrosclerosis. 3. Hypertension, blood pressure is currently low. The Norvasc is appropriately discontinued. 4. Hypothyroidism. 5. History of liver cirrhosis. 6. Previous history of gastrointestinal bleed, currently stable. 7. Tammy urinary tract infection, being followed by Infectious Disease, maintained on antifungal therapy. 8. Altered mentation initially on admission, currently improved. 9. Left pleural effusion. PLAN: Add midodrine for low blood pressure. Continue off of blood pressure medications. Check ultrasound of the kidneys and repeat labs in a.m. Check iron profile and add Aranesp as well. Thank you for this consultation. We will continue to follow the patient with you during her hospitalization. MMODL / IJN: [id number] /
[2019-10-25] MEDS: MIDODRINE 5 MG TAB PO SCH ×2 (13:13→16:08)
[2019-10-25] MEDS: ANIDULAFUNGIN 100 MG in SODIUM CHLORIDE 0.9% 100 ML IVPB SCH (13:13)
[2019-10-25] MEDS: DONEPEZIL 10 MG TAB PO SCH (20:43)
--- NOTE | 2019-10-25 22:39 | PN ---
PROGRESS NOTE DATE OF SERVICE: 10/25/2019 REASON FOR FOLLOWUP: UTI. INTERVAL HISTORY: Patient is currently afebrile. The patient is feeling better. Breathing comfortably. Denies having any chest pain or shortness of breath. Occasional cough. No abdominal pain. No diarrhea. PHYSICAL EXAMINATION: Blood pressure 105/57 with a pulse of 80, temperature 98.3. She is 95% on 2 L nasal cannula. General description: Elderly female lying in bed in no distress. Respiratory system: Unlabored breathing. Clear to auscultation anteriorly. Heart S1, S2. Regular rate and rhythm. ABDOMEN: Soft, no tenderness. LABS: Hemoglobin 7.5, white count 10.8, BUN of 60, creatinine 2.03. The pleural fluid culture so far negative. DIAGNOSTIC IMPRESSION AND PLAN: 1. Patient with urinary tract infection has been Tammy albicans. The patient is currently on Lexapro, can continue the use of the Diflucan she has been on short course, possible cystitis. 2. The patient with pleural effusion status post thoracocentesis mostly bloody fluid. Culture has been negative, on empiric Rocephin. MMODL / IJN: [id number] /
--- NOTE | 2019-10-26 00:09 | PN ---
PROGRESS NOTE Left-sided pleural effusion, left-sided atelectasis versus pneumonia, CHF, acute on chronic systolic, chronic kidney disease stage 3, UTI, SIRS with her mental status. History of GI bleeds, liver cirrhosis. She is alert, oriented. Left pleural fluid is negative. Hemoglobin stable at 7.5. White count down to 10. Possible discharge home in the next 24 to 48 hours. HEMATOLOGY: Negative Homans. PSYCH: Fair mood and affect. NEUROLOGIC: Alert and oriented x3. BUN is 60, creatinine 2.03, sodium 138, potassium 4.2. ASSESSMENT: 1. Exudative pleural effusion with left-sided moderate status post left side thoracentesis. 2. Left-sided atelectasis versus pneumonia with moderate pleural effusion. 3. Congestive heart failure, acute on chronic systolic diastolic congestive heart failure. 4. Chronic kidney disease stage 3. 5. Urinary tract infection, systemic inflammatory response syndrome. 6. History of gastrointestinal bleed. 7. Cirrhosis of the liver. Continue current plan of care. Follow up with cytology. Increase activity. Follow . MMODL / IJN: [id number] /
[2019-10-26] MEDS: SODIUM CHLORIDE 0.9% 1,000 ML IV SCH (06:04)
[2019-10-26] MEDS: LEVOTHYROXINE 25 MCG TAB PO SCH (06:04)
[2019-10-26] MEDS: DIPHENOX-ATROP 2.5-0.025 MG 1 EACH TAB PO SCH ×4 (06:04→20:53)
[2019-10-26 08:12] VITALS: RESP 16
--- NOTE | 2019-10-26 08:20 | US ---
EXAMINATION TYPE: US kidneys/renal and bladder DATE OF EXAM: 10/26/2019 COMPARISON: CT CLINICAL HISTORY: RF. Patient is poor historian regarding kidneys. EXAM MEASUREMENTS: Right Kidney: 9.2 x 5.4x 4.1 cm Left Kidney: 11.2 x 4.5 x 4.1 cm Post Void Residual Volume: not assessed as An indwelling bladder catheter is present Ascites is seen in all 4 abdominal quadrants with largest fluid pocket seen in RLQ = 11.9cm A/P Right Kidney: displaced inferiorly by ascites; no masses seen Left Kidney: upper pole cortical cyst seen = 2.6 x 2.1 x 2.4cm; limitedly seen by overlying bowel gas and rib shadowing Bladder: not seen due to overlying bowel gas There is no evidence for hydronephrosis at this point in time. No nephrolithiasis is seen. IMPRESSION: 1. Four-quadrant ascites. 2. Left renal cyst.
[2019-10-26] MEDS: GABAPENTIN 100 MG CAP PO SCH ×2 (08:43→20:53)
[2019-10-26] MEDS: MEMANTINE 5 MG TAB PO SCH ×2 (08:44→17:37)
[2019-10-26] MEDS: PANTOPRAZOLE 40 MG TABLET PO SCH ×2 (08:44→17:37)
[2019-10-26] MEDS: MIDODRINE 5 MG TAB PO SCH ×3 (08:44→17:37)
[2019-10-26] MEDS: PROPRANOLOL 10 MG TAB PO SCH ×3 (08:45→17:37)
[2019-10-26] MEDS: ESCITALOPRAM 10 MG TAB PO SCH (08:45)
[2019-10-26] MEDS: TRIAMCINOLONE 0.1% CREAM 80 GM TUBE TOPICAL SCH ×2 (08:47→20:54)
[2019-10-26] MEDS: NYSTATIN 100,000UNIT/GM CREAM 30 GM TUBE TOPICAL SCH ×2 (08:47→20:54)
[2019-10-26] MEDS: NON FORMULARY DRUG (Magic Butt Paste 1 APPLIC) TOPICAL SCH ×2 (08:48→19:49)
[2019-10-26] MEDS ORDERED: FUROSEMIDE 10 MG/ML 4 ML VIAL IV STA (11:58)
--- NOTE | 2019-10-26 11:59 | P.PN ---
Subjective Patient is seen in follow for acute kidney injury and chronic kidney disease. Patient has chronic kidney disease stage III with baseline creatinine in the range of 1.3-1.5. Renal function stable with creatinine at 2.03 today. Denies vomiting or diarrhea. Oral intake is good. Nonoliguric. Hemodynamically stable. Has a An catheter. Vital signs are stable. General: The patient appeared well nourished and normally developed. HEENT: Head exam is unremarkable. Neck is without jugular venous distension. LUNGS: Lungs are clear to auscultation and percussion. Breath sounds decreased. HEART: Rate and Rhythm are regular. ABDOMEN: Soft, nontender. EXTREMITITES: 1+ edema. Objective - Vital Signs Vital signs: Vital Signs Temp 97.8 F 10/26/19 08:09 Pulse 65 10/26/19 08:09 Resp 16 10/26/19 08:09 BP 106/46 10/26/19 08:09 Pulse Ox 94 L 10/26/19 08:09 Intake & Output 10/25/19 10/26/19 10/26/19 18:59 06:59 18:59 Intake Total 380 Output Total 400 400 Balance -400 -20 Intake: Intake, IV Titration 80 Amount Sodium Chloride 0.9% 1, 80 000 ml @ 20 mls/hr IV . Q24H [facility] Rx#:[id number] Oral 300 Output: Urine 400 400 Other: Voiding Method Indwelling Catheter Indwelling Catheter Indwelling Catheter # Voids 1 - Labs CBC & Chem 7: 10/25/19 08:05 10/25/19 08:05 Labs: Microbiology - Last 24 Hours (Table) 10/22/19 01:57 Blood Culture - Preliminary Blood No Growth after 96 hours 10/23/19 17:00 Gram Stain - Preliminary Pleural Fluid Body Fluid Culture - Preliminary Assessment and Plan Plan: Assessment: 1. Acute kidney injury secondary to ATN secondary to acute blood loss anemia. Creatinine stable at 2.03 today. No hydronephrosis noted on kidney ultrasound. 2. Volume overload. Ascites noted on kidney ultrasound. Also has lower extremity edema. 3. Chronic kidney disease stage III with baseline creatinine in the range of 1.4-1.6 secondary to nephrosclerosis. 4. Acute blood loss anemia status post blood transfusion. Hemoglobin stable. No active bleeding. Maintained on Aranesp. 5. Metabolic acidosis secondary to acute kidney injury. 6. UTI with urine culture positive for Tammy albicans. Maintained on Rocephin and anti-fungal at this time. Plan: Lasix 40 mg IV once today. Discontinue An catheter. Monitor serial postvoid residuals.
[2019-10-26 13:28] LABS: % Iron Saturation 12.82 (12.00-45.00)
[2019-10-26] MEDS: ANIDULAFUNGIN 100 MG in SODIUM CHLORIDE 0.9% 100 ML IVPB SCH (14:07)
--- NOTE | 2019-10-26 19:39 | P.PN ---
Subjective Progress Note Date: 10/26/19 Principal diagnosis: Left-sided pleural effusion left-sided atelectasis versus pneumonia Congestive heart failure likely acute on chronic systolic/diastolic heart failure Chronic kidney disease stage III UTI/Sirs-like process Altered mental status likely multifactorial including an associated with pneumonia congestive heart failure and UTI History of GI bleed cirrhosis liver 10/26/2019, patient seen eval examined during the rounds labs reviewed medications reviewed, patient remains afebrile with stable hemodynamics oxygen saturation 99% on room air, cytology and pleural fluid is still pending, ultrasound no evidence of hydronephrosis, ascites have been seen 10/25/2019, patient seen eval examined during the rounds labs reviewed medications reviewed care plan discussed, more awake and alert, answers from pleural fluid is negative, hemoglobin remained stable 7.5 white cell count down to 10,900, cytology pending 10/24/2019, patient seen eval examined during the rounds labs reviewed medications reviewed care plan discussed patient is awake and alert, pleasantly confused at times, she has successful thoracentesis of the left side and 750 mL of fluid hemorrhagic was removed, post procedure chest x-ray stable small residual effusion still present, pleural fluid findings reviewed exudative effusion, cytology is pending, the Gram stain and culture so far has been negative 10/23/2019, patient seen eval examined during rounds labs reviewed more awake and alert oriented 2 denies any chest pain does have some shortness of breath, labs reviewed medications reviewed ultrasound finding reviewed's as well as hard copies of left-sided him is reviewed, patient has a moderate pleural effusion on the left side given chronic kidney disease unlikely to respond to furosemide will require thoracentesis to drain the fluid, procedure explained to the patient will also obtain consent patient seen eval reexamined on medical floor, patient originally has been admitted into the hospital with altered mental status thought to be related to c irrhosis and elevated ammonia level but currently patient is arousable and follows simple commands, her chest x-ray and computed tomography scan reviewed, computed tomography 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, chest x-ray so history of bilateral small pulmonary edema effusion bilateral large on the left side compared right side, possible atelectasis appeared to be present pneumonia cannot be excluded involving the left lower lobe, evidence of chronic kidney disease stage III, BNP is very high 2650, urinary and is positive for large leukocyte esterase trace RBCs, urine culture results are pending, patient is currently on Rocephin and continuation of her home medications Objective - Vital Signs Vital signs: Vital Signs Temp 98.0 F 10/26/19 16:26 Pulse 63 10/26/19 16:26 Resp 16 10/26/19 16:26 BP 104/60 10/26/19 16:26 Pulse Ox 99 10/26/19 16:26 Intake & Output 10/26/19 10/26/19 10/27/19 06:59 18:59 06:59 Intake Total 380 Output Total 400 400 Balance -20 -400 Intake: Intake, IV Titration 80 Amount Sodium Chloride 0.9% 1, 80 000 ml @ 20 mls/hr IV . Q24H [facility] Rx#:[id number] Oral 300 Output: Urine 400 400 Uretheral (An) 400 Other: Voiding Method Indwelling Catheter Indwelling Catheter # Voids 1 # Bowel Movements 1 - Exam - Constitutional General appearance: average body habitus, cooperative, disheveled - EENT Eyes: EOMI, PERRLA ENT: hard of hearing Ears: bilateral: normal - Neck Neck: normal ROM Carotids: bilateral: upstroke normal Thyroid: bilateral: normal size - Respiratory Respiratory: left: diminished - Cardiovascular Rhythm: regular Heart sounds: normal: S1, S2 - Gastrointestinal General gastrointestinal: decreased bowel sounds, normal bowel sounds, soft - Neurologic Neurologic: CNII-XII intact - Musculoskeletal Musculoskeletal: gait normal, generalized weakness, strength equal bilaterally - Psychiatric Psychiatric: A&O x's 3, appropriate affect, intact judgment & insight - Labs CBC & Chem 7: 10/25/19 08:05 10/25/19 08:05 Labs: Abnormal Lab Results - Last 24 Hours (Table) 10/22/19 10/25/19 Range/Units 07:02 08:05 Iron 20 L (50-170) ug/dL TIBC 156 L (228-460) ug/dL Gabapentin 71.4 H (2.0-12.0) ug/mL Microbiology - Last 24 Hours (Table) 10/23/19 17:00 Gram Stain - Preliminary Pleural Fluid Body Fluid Culture - Preliminary 10/22/19 01:57 Blood Culture - Preliminary Blood No Growth after 96 hours Assessment and Plan Assessment: Exudative Pleural effusion left-sided moderate status post left-sided thoracentesis, and doing well left-sided atelectasis versus pneumonia with moderate pleural effusion Ascites Congestive heart failure likely acute on chronic systolic/diastolic heart failure Chronic kidney disease stage III UTI/Sirs-like process Altered mental status likely multifactorial including an associated with pneumonia congestive heart failure and UTI History of GI bleed cirrhosis liver Plan: Pleural fluid findings reviewed continue current plan of care, follow up on cytology, increase activity as tolerated follow hemoglobin closely, consider GI evaluation for recurrent ascites Time with Patient: Greater than 30
--- NOTE | 2019-10-26 20:45 | PN ---
PROGRESS NOTE DATE OF SERVICE: 10/26/2019 REASON FOR FOLLOWUP: Urinary tract infection. INTERVAL HISTORY: The patient is currently afebrile. The patient is breathing comfortably. The patient denies having any chest pain or shortness of breath or cough. No abdominal pain or diarrhea. PHYSICAL EXAMINATION: Blood pressure 104/60 with a pulse of 63, temperature 98. She is 99% on room air. General description is an elderly female lying in bed in no distress. RESPIRATORY SYSTEM: Unlabored breathing with decreased breath sounds at the base. No wheeze. HEART: S1, S2. Regular rate and rhythm. ABDOMEN: Soft. No tenderness. EXTREMITIES: No edema of the feet. LABS: No new labs have been obtained today. DIAGNOSTIC IMPRESSION AND PLAN: 1. Patient with a urinary tract infection. Urine has been finalized with Tammy albicans. Currently on currently can use Diflucan short course. 2. Question of pneumonia. Patient is currently covered with Rocephin. Waiting for the pleural fluid culture to finalize. MMODL / IJN: [id number] /
[2019-10-26] MEDS: DONEPEZIL 10 MG TAB PO SCH (20:53)
--- NOTE | 2019-10-27 00:27 | PN ---
PROGRESS NOTE A 74-year-old female. Discussed case with insurance company. She is okay to go back to [facility] not in acute rehab, but in the same area she was in before. PSYCH: She is alert giving appropriate answers. CARDIOVASCULAR: S1, S2. HEMATOLOGY: Negative Homans. Hemoglobin 7.5, white count is 10.8. Sodium 138, potassium 4.2, BUN 60, creatinine 2.03. Iron level is low at 21. As mentioned, we are treating her for UTI, Tammy albicans. Continue with Diflucan as an outpatient. MMODL / IJN: [id number] /
--- NOTE | 2019-10-27 00:49 | DS ---
DISCHARGE SUMMARY A 74-year-old white female admitted with left-sided pleural effusion for thoracentesis which has been done for possible pneumonia. Exudate was seen on the fluid that was sent to the lab. Had congestive heart failure, acute on chronic systolic, diastolic heart failure, chronic kidney disease stage 3, UTI, SIRS like process, altered mental status, history of GI bleed, cirrhosis of the liver, severe neuropathy, severe anemia with multiple bleeds from cirrhosis of the liver with esophageal varices for which chronic anemia has been seen. She usually needs outpatient IV infusions if her hemoglobin does not stabilize. She came in with UTI, SIRS-like process with positive Tammy. She will possibly go back on oral Diflucan 100 mg a day for 7 days. Restart Levaquin for possible pneumonia. CONDITION: Stable. PROGNOSIS: Guarded. DIET: As tolerated. She came in, was obtunded with altered mental status and respiratory distress. She responded to IV antibiotics for possible pneumonia. A large pleural effusion was drained for which the patient responded to. The patient continued to stabilize at that point. Hemoglobin stabilized. After renal physicians are as well as the liver doctor and pulmonary doctor, she is stabilized and will be seen by Dr. Davila at [facility]. MMODL / IJN: [id number] /
[2019-10-27] MEDS: DIPHENOX-ATROP 2.5-0.025 MG 1 EACH TAB PO SCH ×2 (02:10→09:15)
[2019-10-27] MEDS: LEVOTHYROXINE 25 MCG TAB PO SCH (05:51)
[2019-10-27] MEDS: SODIUM CHLORIDE 0.9% 1,000 ML IV SCH (06:24)
[2019-10-27 07:37] VITALS: BP 124/56; PULSE 59; TEMP 97.6
[2019-10-27 08:19] LABS: Anisocytosis Slight; Hypochromasia Marked; MCH 31.4 pg (25.0-35.0); MCHC 29.8 g/dL (31.0-37.0); MCV 105.2 fL (80.0-100.0); Macrocytosis Marked; Mean Platelet Volume 11.2; Platelet Count 93 k/uL (150-450); RBC 2.56 m/uL (3.80-5.40); RDW 19.7 % (11.5-15.5); WBC 12.8 k/uL (3.8-10.6)
[2019-10-27 08:37] LABS: Calcium 7.7 mg/dL (8.4-10.2); Magnesium 1.7 mg/dL (1.6-2.3); Potassium 4.5 mmol/L (3.5-5.1); Total Bilirubin 0.6 mg/dL (0.2-1.3); Total Protein 6.6 g/dL (6.3-8.2)
[2019-10-27] MEDS: MEMANTINE 5 MG TAB PO SCH (09:15)
[2019-10-27] MEDS: PANTOPRAZOLE 40 MG TABLET PO SCH (09:15)
[2019-10-27] MEDS: MIDODRINE 5 MG TAB PO SCH ×2 (09:15→12:13)
[2019-10-27] MEDS: GABAPENTIN 100 MG CAP PO SCH (09:15)
[2019-10-27] MEDS: PROPRANOLOL 10 MG TAB PO SCH ×2 (09:15→12:13)
[2019-10-27] MEDS: NON FORMULARY DRUG (Magic Butt Paste 1 APPLIC) TOPICAL SCH (09:15)
[2019-10-27] MEDS: TRIAMCINOLONE 0.1% CREAM 80 GM TUBE TOPICAL SCH (09:16)
[2019-10-27] MEDS: NYSTATIN 100,000UNIT/GM CREAM 30 GM TUBE TOPICAL SCH (09:16)
[2019-10-27] MEDS: ESCITALOPRAM 10 MG TAB PO SCH (09:16)
[2019-10-27 10:09] LABS: Eosinophils # (M) 0.26 k/uL (0-0.7); Lymphocytes # (M) 0.38 k/uL (1.0-4.8); Monocytes # (M) 0.38 k/uL (0-1.0); Neutrophils # (M) 11.78 k/uL (1.3-7.7); Neutrophils % (M) 92 %; Nucleated Red Blood Cells 0 /100 WBC (0-0); Total Cells Counted 100
--- NOTE | 2019-10-27 13:03 | P.PN ---
Subjective Patient is seen in follow for acute kidney injury and chronic kidney disease. Patient has chronic kidney disease stage III with baseline creatinine in the range of 1.3-1.5. Renal function improving. Denies vomiting or diarrhea. Oral intake is good. Nonoliguric. Hemodynamically stable. An catheter removed October 25. Vital signs are stable. General: The patient appeared well nourished and normally developed. HEENT: Head exam is unremarkable. Neck is without jugular venous distension. LUNGS: Lungs are clear to auscultation and percussion. Breath sounds decreased. HEART: Rate and Rhythm are regular. ABDOMEN: Soft, nontender. EXTREMITITES: 1+ edema. Objective - Vital Signs Vital signs: Vital Signs Temp 97.6 F 10/27/19 07:00 Pulse 59 L 10/27/19 07:00 Resp 16 10/27/19 07:00 BP 124/56 10/27/19 07:00 Pulse Ox 98 10/27/19 07:00 Intake & Output 10/26/19 10/27/19 10/27/19 18:59 06:59 18:59 Output Total 400 500 Balance -400 -500 Output: Urine 400 500 Uretheral (An) 400 Other: Voiding Method Indwelling Catheter Diaper Incontinent # Bowel Movements 1 1 - Labs CBC & Chem 7: 10/27/19 07:50 10/27/19 07:50 Labs: Abnormal Lab Results - Last 24 Hours (Table) 10/25/19 10/27/19 10/27/19 Range/Units 08:05 07:50 07:50 WBC 12.8 H (3.8-10.6) k/uL RBC 2.56 L (3.80-5.40) m/uL Hgb 8.0 L (11.4-16.0) gm/dL Hct 27.0 L (34.0-46.0) % MCV 105.2 H (80.0-100.0) fL MCHC 29.8 L (31.0-37.0) g/dL RDW 19.7 H (11.5-15.5) % Plt Count 93 L (150-450) k/uL Neutrophils # (Manual) 11.78 H (1.3-7.7) k/uL Lymphocytes # (Manual) 0.38 L (1.0-4.8) k/uL Macrocytosis Marked A Chloride 113 H (98-107) mmol/L Carbon Dioxide 21 L (22-30) mmol/L BUN 51 H (7-17) mg/dL Creatinine 1.79 H (0.52-1.04) mg/dL Glucose 133 H (74-99) mg/dL Calcium 7.7 L (8.4-10.2) mg/dL TIBC 156 L (228-460) ug/dL Alkaline Phosphatase 143 H (38-126) U/L Albumin 2.0 L (3.5-5.0) g/dL Microbiology - Last 24 Hours (Table) 10/22/19 01:57 Blood Culture - Preliminary Blood No Growth after 120 hours 10/23/19 17:00 Gram Stain - Preliminary Pleural Fluid Body Fluid Culture - Preliminary Assessment and Plan Plan: Assessment: 1. Acute kidney injury secondary to ATN secondary to acute blood loss anemia. Renal function improving. Creatinine 1.79 today. No hydronephrosis noted on kidney ultrasound. 2. Volume overload. Ascites noted on kidney ultrasound. Also has lower extremity edema. 3. Chronic kidney disease stage III with baseline creatinine in the range of 1.4-1.6 secondary to nephrosclerosis. 4. Acute blood loss anemia status post blood transfusion. Hemoglobin stable. No active bleeding. Maintained on Aranesp. 5. Metabolic acidosis secondary to acute kidney injury. 6. UTI with urine culture positive for Tammy albicans. Maintained on Rocephin and anti-fungal at this time. Plan: Add Lasix 40 mg orally once daily. Repeat electrolytes in the morning.
[2019-10-27] MEDS ORDERED: FUROSEMIDE 40 MG TAB PO SCH (13:15)
--- NOTE | 2019-10-27 14:24 | PN ---
PROGRESS NOTE DATE OF SERVICE: 10/27/2019 REASON FOR FOLLOWUP: Urinary tract infection. INTERVAL HISTORY: Patient is currently afebrile, the patient is breathing comfortably, feeling better. Denies having any chest pain. No shortness of breath or cough. No abdominal pain or diarrhea. PHYSICAL EXAMINATION: Blood pressure 124/56, pulse of 59, temperature 97.6. She is 98% on room air. General description is an elderly female, lying in bed in no distress. RESPIRATORY SYSTEM: Unlabored breathing, clear to auscultation anteriorly. HEART S1, S2. Regular rate and rhythm. ABDOMEN: Soft, no tenderness. LABS: Creatinine is 1.79. Pleural cultures so far negative. DIAGNOSTIC IMPRESSION AND PLAN: 1. Patient admitted to the hospital with urinary tract infection. Urine has been positive for Tammy. Patient's psych medication currently get the use of Diflucan. She received about 3 4 days of , that should be enough, no need for any fungal on discharge. 2. Patient with question of pneumonia. Culture has been negative so far. Make a short course of oral Ceftin on discharge. MMODL / IJN: [id number] /
--- NOTE | 2019-10-28 11:40 | CDI ---
Documentation Clarification Form Date: 10/28/19 From: Barbara Jones Phone: If you have a question about this query, please contact Jami Buckley, [place] Dyer at [phone] between 8am and 5pm. Admit Date: 10/22/19 Discharge Date:10/27/19 Patient Name: Lexii Vale Visit Number: [id number] ATTENTION: The Clinical Documentation Specialists (CDI) and [facility] Coding Staff appreciate your assistance in clarifying documentation. Please respond to the clarification below the line at the bottom and electronically sign. The CDI & [facility] Coding staff will review the response and follow-up if needed. Please note: Queries are made part of the Legal Health Record. If you have any questions, please contact the author of this message via ITS. Dear Dr. Davila The patient presented with the following: altered mental status, SIRS like process. Documentation in the H&P states Rule out severe UTI with urinary tract infection with sepsis from this. History/Risk Factors: Tammy UTI, pneumonia, CHF exacerbation, anemia Clinical Indicators: Elevated WBC, WBC: 11.4 Lactic acid: 1.3 Blood cultures: No growth Vitals signs on admission: T. 97.4, P. 64, R 19, BP 107/47 Treatment: ID Consult: Mental status changes likely multifactorial, UTI Antibiotics:IV Rocephin, IV Bolus: No bolus, NS @ 20 mls/hr In your professional opinion, please clarify if these findings signify one of the following conditions, whether the condition is POA, and cause, if known: Condition Sepsis ruled out SIRS, without underlying infectious process Sepsis Severe Sepsis Septic Shock Other, please specify Unable to determine Link or clarify if there is associated (due to/with): Organ failure Shock MTDD
--- NOTE | 2019-10-30 11:18 | CDI ---
Documentation Clarification Form Date: 10/30/19 From: Barbara Jones Phone: If you have a question about this query, please contact Jami Buckley, Pipe Organ Technician at [phone] between 8am and 5pm. Admit Date: 10/22/19 Discharge Date:10/27/19 Patient Name: Lexii Vale Visit Number: [id number] ATTENTION: The Clinical Documentation Specialists (CDI) and [facility] Coding Staff appreciate your assistance in clarifying documentation. Please respond to the clarification below the line at the bottom and electronically sign. The CDI & [facility] Coding staff will review the response and follow-up if needed. Please note: Queries are made part of the Legal Health Record. If you have any questions, please contact the author of this message via ITS. Dear Dr. Davila Thank you for signing your previous query. Please document a response before signing this query. The patient presented with the following: altered mental status, SIRS like process. Documentation in the H&P states Rule out severe UTI with urinary tract infection with sepsis from this. History/Risk Factors: Tammy UTI, pneumonia, CHF exacerbation, anemia Clinical Indicators: Elevated WBC, WBC: 11.4 Lactic acid: 1.3 Blood cultures: No growth Vitals signs on admission: T. 97.4, P. 64, R 19, BP 107/47 Treatment: ID Consult: Mental status changes likely multifactorial, UTI Antibiotics:IV Rocephin, IV Bolus: No bolus, NS @ 20 mls/hr In your professional opinion, please clarify if these findings signify one of the following conditions, whether the condition is POA, and cause, if known: Condition Sepsis ruled out SIRS, without underlying infectious process Sepsis Severe Sepsis Septic Shock Other, please specify Unable to determine Link or clarify if there is associated (due to/with): Organ failure Shock MTDD
--- NOTE | 2019-10-31 14:26 | DS ---
DISCHARGE SUMMARY ADDENDUM: Please add dictation on Lexii Vale : Systemic inflammatory response syndrome. MMODL / IJN: [id number] /
== END 2019-10-27 13:28 | DRG 291 ==
LOC: EC 22:56 → 4SSUR 10-22 04:03
PROVIDERS: ADMIT Family Medicine; ATTEND Family Medicine
PROC: 0W9B3ZZ Drainage of Left Pleural Cavity, Percutaneous Approach (ICD-10-PCS; principal; 2019-10-23)
PROC: 30233N1 Transfusion of Nonautologous Red Blood Cells into Peripheral Vein, Percutaneous Approach (ICD-10-PCS; 2019-10-23)
DX: I13.0 Hypertensive heart and chronic kidney disease with heart failure and stage 1 through stage 4 chronic kidney disease, or unspecified chronic kidney disease (principal); G92 Toxic encephalopathy; I50.43 Acute on chronic combined systolic (congestive) and diastolic (congestive) heart failure; J18.9 Pneumonia, unspecified organism; N17.0 Acute kidney failure with tubular necrosis; B37.49 Other urogenital candidiasis; D62 Acute posthemorrhagic anemia; E44.0 Moderate protein-calorie malnutrition; E87.2 Acidosis; J44.0 Chronic obstructive pulmonary disease with (acute) lower respiratory infection; J91.8 Pleural effusion in other conditions classified elsewhere; R18.8 Other ascites; I85.00 Esophageal varices without bleeding; Z11.59 Encounter for screening for other viral diseases; J98.11 Atelectasis; K92.2 Gastrointestinal hemorrhage, unspecified; G25.3 Myoclonus; K74.60 Unspecified cirrhosis of liver; I95.9 Hypotension, unspecified; N18.3 Chronic kidney disease, stage 3 (moderate); F03.90 Unspecified dementia, unspecified severity, without behavioral disturbance, psychotic disturbance, mood disturbance, and anxiety; I48.91 Unspecified atrial fibrillation; E03.9 Hypothyroidism, unspecified; E78.5 Hyperlipidemia, unspecified; E86.0 Dehydration; E87.5 Hyperkalemia; F32.9 Major depressive disorder, single episode, unspecified; F41.9 Anxiety disorder, unspecified; G62.9 Polyneuropathy, unspecified; K21.9 Gastro-esophageal reflux disease without esophagitis; M19.90 Unspecified osteoarthritis, unspecified site; R33.9 Retention of urine, unspecified; H91.90 Unspecified hearing loss, unspecified ear; T42.6X5A Adverse effect of other antiepileptic and sedative-hypnotic drugs, initial encounter; R40.2362 Coma scale, best motor response, obeys commands, at arrival to emergency department; R40.2142 Coma scale, eyes open, spontaneous, at arrival to emergency department; R40.2252 Coma scale, best verbal response, oriented, at arrival to emergency department; Z79.51 Long term (current) use of inhaled steroids; Z79.890 Hormone replacement therapy; Z79.899 Other long term (current) drug therapy; Z92.21 Personal history of antineoplastic chemotherapy; Z86.73 Personal history of transient ischemic attack (TIA), and cerebral infarction without residual deficits; Z90.710 Acquired absence of both cervix and uterus; Z87.891 Personal history of nicotine dependence; Z85.42 Personal history of malignant neoplasm of other parts of uterus; Z85.028 Personal history of other malignant neoplasm of stomach; Z90.89 Acquired absence of other organs; Z98.42 Cataract extraction status, left eye; Z98.41 Cataract extraction status, right eye; Z80.9 Family history of malignant neoplasm, unspecified
CPT/HCPCS: 36415; 70450; 71045; 76604; 76770; 80053; 80171; 81001; 82140; 82945; 83540; 83550; 83605; 83615; 83735; 83880; 84157; 84484; 85025; 85610; 85730; 86850; 86870; 86880; 86900; 86901; 86920; 87040; 87070; 87086; 87102; 87116; 87205; 87206; 87635; 88108; 88305; 89050; 93005; 93880; 96365; 99285

== ENCOUNTER 2019-11-06 16:01 | Observation (INO) | payer MEDICARE, OTHER ==
[2019-11-06 17:16] LABS: Anisocytosis Moderate; HCT 23.1 % (34.0-46.0); Hypochromasia Marked; MCH 31.8 pg (25.0-35.0); MCHC 30.2 g/dL (31.0-37.0); MCV 105.6 fL (80.0-100.0); Macrocytosis Marked; Mean Platelet Volume 12.3; RBC 2.19 m/uL (3.80-5.40); RDW 20.7 % (11.5-15.5); WBC 10.9 k/uL (3.8-10.6)
[2019-11-06 17:20] LABS: Platelet Count 77 k/uL (150-450)
[2019-11-06 17:24] LABS: Albumin 2.2 g/dL (3.5-5.0); Calcium 7.8 mg/dL (8.4-10.2); Total Bilirubin 1.3 mg/dL (0.2-1.3); Total Protein 7.6 g/dL (6.3-8.2)
[2019-11-06 17:31] LABS: INR 1.3 (<1.2)
[2019-11-06 17:32] LABS: Partial Thromboplastin Time 30.8 sec (22.0-30.0); Prothrombin Time 12.6 sec (9.0-12.0)
[2019-11-06 17:37] LABS: Eosinophils # (M) 0.11 k/uL (0-0.7); Lymphocytes # (M) 0.65 k/uL (1.0-4.8); Monocytes # (M) 0.33 k/uL (0-1.0); Neutrophils # (M) 9.81 k/uL (1.3-7.7); Neutrophils % (M) 90 %; Nucleated Red Blood Cells 0 /100 WBC (0-0); Potassium 5.5 mmol/L (3.5-5.1); Total Cells Counted 100
[2019-11-06 17:38] LABS: Ovalocytes Present; Polychromasia Present; Target Cells Present
[2019-11-06] MEDS ORDERED: PANTOPRAZOLE 40 MG/10 ML VIAL IVP STA (18:40)
--- NOTE | 2019-11-06 18:42 | ED ---
Recheck HPI - General Source: EMS Mode of arrival: EMS Limitations: physical limitation <Marian Scott - Last Filed: 11/06/19 18:53> <Fernando Abad - Last Filed: 11/06/19 20:16> - General Chief Complaint: Recheck/Abnormal Lab/Rx Stated Complaint: Low Hemoglobin Time Seen by Provider: 11/06/19 16:03 - History of Present Illness Initial Comments: 74-year-old female with history of chronic anemia presenting today for chief complaint of low hemoglobin patient outpatient hemoglobin of 6.5. Patient states that her nursing staff has noted dark black stools. Patient denies any abdominal pain she states that she is a very cold and weak feeling more than usual she states she "should've known that her hemoglobin was low. Patient denies any chest pain she states she has "very slight" shortness of breath she denies any leg swelling cough congestion fevers. Patient denies hemoptysis or pain with deep inspiration. Patient has no additional complaints. Upon arrival she appears in good spirits. No distress. DOes not appear in respiratory distress. (Marian Scott) - Related Data Home Medications Medication Instructions Recorded Confirmed Ferrous Sulfate [Feosol] 325 mg PO BID@0800,1700 10/29/16 11/06/19 Donepezil [Aricept] 10 mg PO HS@2100 11/07/17 11/06/19 Levothyroxine Sodium [Synthroid] 25 mcg PO DAILY@0600 11/07/17 11/06/19 Cetirizine HCl [Zyrtec] 10 mg PO DAILY@0800 01/14/19 11/06/19 Escitalopram [Lexapro] 10 mg PO DAILY@0800 01/14/19 11/06/19 Memantine [Namenda] 10 mg PO BID@0800,1700 01/14/19 11/06/19 Loperamide [Imodium] 2 - 4 mg PO Q12H PRN 09/28/19 11/06/19 Vitamin B Complex 1 cap PO DAILY@1700 09/28/19 11/06/19 rOPINIRole HCL [Requip] 0.5 mg PO HS@2100 09/28/19 11/06/19 Acetaminophen [Acetaminophen 8 650 mg PO Q4H PRN 10/21/19 11/06/19 Hour] Cholestyramine/Aspartame 4 gm PO DAILY@169910/21/19 11/06/19 [Cholestyramine Light Packet] Darbepoetin Chilo [Aranesp] 40 mcg SQ TH@169910/21/19 11/06/19 Diphenoxylate HCl/Atropine 1 tab PO Q6H 10/21/19 11/06/19 [Lomotil 2.5-0.025 mg Tablet] Liquacel 30 ml PO BID@0800,1700 10/21/19 11/06/19 Nystatin/Triamcin 1 applicate TOPICAL QID 10/21/19 11/06/19 [Nystatin-Triamcinolone Cream] Pantoprazole Sodium [Protonix] 40 mg PO BID@0800,169910/21/19 11/06/19 Propranolol [Inderal] 10 mg PO TID@0800,1200,1700 10/21/19 11/06/19 Saccharomyces Boulardii 250 mg PO DAILY@169910/21/19 11/06/19 amLODIPine [Norvasc] 5 mg PO DAILY@0810/21/19 11/06/19 Beclomethasone Dip 80 Mcg/Puff 1 puff INHALATION RT-BID 11/06/19 11/06/19 [Qvar 80 mcg] Collagenase [Santyl] 1 applic TOPICAL DAILY 11/06/19 11/06/19 Furosemide [Lasix] 20 mg PO DAILY@169911/06/19 11/06/19 Furosemide [Lasix] 40 mg PO DAILY@0811/06/19 11/06/19 Gabapentin [Neurontin] 200 mg PO BID@0800,2100 11/06/19 11/06/19 Magnesium Hydroxide [Milk of 7,200 mg PO DAILY PRN 11/06/19 11/06/19 Magnesia Concentrate] Midodrine [ProAmatine] 5 mg PO TID@0800,1200,1700 11/06/19 11/06/19 Na Phos,M-B/Na Phos,Di-Ba [Fleet 133 ml RECTAL ONCE PRN 11/06/19 11/06/19 Adult] bisacodyL [Dulcolax] 10 mg RECTAL DAILY PRN 11/06/19 11/06/19 Previous Rx's Medication Instructions Recorded traMADol HCl [Ultram] 50 mg PO BID PRN #6 tab 10/01/19 Allergies Allergy/AdvReac Type Severity Reaction Status Date / Time No Known Allergies Allergy Verified 11/06/19 18:11 Review of Systems ROS Other: All systems not noted in ROS Statement are negative. <Marian Scott Salome - Last Filed: 11/06/19 18:53> ROS Other: All systems not noted in ROS Statement are negative. <Fernando Abad - Last Filed: 11/06/19 20:16> ROS Statement: Those systems with pertinent positive or pertinent negative responses have been documented in the HPI. Past Medical History Past Medical History: Atrial Fibrillation, Cancer, Heart Failure, COPD, CVA/TIA, GERD/Reflux, GI Bleed, Hyperlipidemia, Hypertension, Osteoarthritis (OA) Additional Past Medical History / Comment(s): hx. uterine cancer, chemo 6 years ago, TIA several yrs. ago-forgetful, neuropathy feet & legs & hands, ANEMIA History of Any Multi-Drug Resistant Organisms: None Reported Past Surgical History: Hysterectomy, Tonsillectomy Additional Past Surgical History / Comment(s): COLONOSCOPY. EGD. BILAT CATARACTS REMOVED Past Anesthesia/Blood Transfusion Reactions: No Reported Reaction Past Psychological History: Anxiety, Depression Smoking Status: Former smoker Past Alcohol Use History: None Reported Past Drug Use History: None Reported - Past Family History Mother Family Medical History: Cancer Father History Unknown: Yes Family Medical History: Cancer Brother(s) Family Medical History: Cancer <Marian Scott Salome - Last Filed: 11/06/19 18:53> General Exam Limitations: physical limitation <Marian Scott - Last Filed: 11/06/19 18:53> - General Exam Comments Initial Comments: General: The patient is awake and alert, in no distress Eye: Pupils are equal, round and reactive to light, extra-ocular movements are intact. No nystagmus. There is normal conjunctiva bilaterally. No signs of icterus. Ears, nose, mouth and throat: There are moist mucous membranes and no oral lesions. Neck: The neck is supple, there is no tenderness or JVD. Cardiovascular: There is a regular rate and rhythm. No murmur, rub or gallop is appreciated. Respiratory: Lungs are clear to auscultation, respirations are non-labored, breath sounds are equal. No wheezes, stridor, rales, or rhonchi. Gastrointestinal: Soft, non-distended, non-tender abdomen without masses or organomegaly noted. There is no rebound or guarding present. Dark brown/black stool. Musculoskeletal: Normal ROM, no tenderness. Strength 5/5. Sensation intact. Radial pulses equal bilaterally 2+. Neurological: A&O x 3. CN II-XII intact, There are no obvious motor or sensory deficits. Coordination appears grossly intact. Speech is normal. Skin: Skin is warm and dry and no rashes or lesions are noted. Some pallor noted. Excoriation of the perianal region. Patient has an ulceration just right to the coccyx 1x3/4cm. Psychiatric: Cooperative, appropriate mood & affect, normal judgment. (aMrian Scott) Course Vital Signs 11/06/19 16:03 Temperature 97.5 F L Pulse Rate 62 Respiratory 17 Rate Blood Pressure 127/54 O2 Sat by Pulse 97 Oximetry Medical Decision Making - Lab Data Result diagrams: 11/06/19 17:02 11/06/19 17:02 <Marian Scott - Last Filed: 11/06/19 18:53> - Lab Data Result diagrams: 11/06/19 17:02 11/06/19 17:02 - EKG Data -: EKG Interpreted by Me (EKG is a sinus rhythm rate 63 CA. 150 QRS 64 QTc 468) <Fernando Abad - Last Filed: 11/06/19 20:16> - Medical Decision Making 74yo female present today for chief complaint of abnormal labs. Hgb 7. Other labs near pt baseline. Patient has dark stool on rectal. BP stable HR stable. We have weakness cold intolerance. Conservative symptomatic bleed. Patient case discussed with Dr. Abad who recommends transfusion of 1 unit. patient will be admitted to Dr. Davila. Patient case accepted by Dr. Davila. Patient transferred to floor in stable condition. (Marian Scott) - Lab Data Lab Results 11/06/19 11/06/19 11/06/19 Range/Units 17:02 17:02 17:02 WBC 10.9 H (3.8-10.6) k/uL RBC 2.19 L (3.80-5.40) m/uL Hgb 7.0 L (11.4-16.0) gm/dL Hct 23.1 L (34.0-46.0) % MCV 105.6 H (80.0-100.0) fL MCH 31.8 (25.0-35.0) pg MCHC 30.2 L (31.0-37.0) g/dL RDW 20.7 H (11.5-15.5) % Plt Count 77 L (150-450) k/uL Neutrophils % (Manual) 90 % Lymphocytes % (Manual) 6 % Monocytes % (Manual) 3 % Eosinophils % (Manual) 1 % Neutrophils # CLINICAL SCIENCES PROFESSOR Neutrophils # (Manual) 9.81 H (1.3-7.7) k/uL Lymphocytes # (Manual) 0.65 L (1.0-4.8) k/uL Monocytes # (Manual) 0.33 (0-1.0) k/uL Eosinophils # (Manual) 0.11 (0-0.7) k/uL Nucleated RBCs 0 (0-0) /100 WBC Manual Slide Review Performed Polychromasia Present Hypochromasia Marked Anisocytosis Moderate Macrocytosis Marked A Target Cells Present Ovalocytes Present PT (9.0-12.0) sec INR (<1.2) APTT (22.0-30.0) sec Sodium 137 (137-145) mmol/L Potassium 5.5 H (3.5-5.1) mmol/L Chloride 113 H (98-107) mmol/L Carbon Dioxide 20 L (22-30) mmol/L Anion Gap 4 mmol/L BUN 62 H (7-17) mg/dL Creatinine 1.77 H (0.52-1.04) mg/dL Est GFR (CKD-EPI)AfAm 32 (>60 ml/min/1.73 sqM) Est GFR (CKD-EPI)NonAf 28 (>60 ml/min/1.73 sqM) Glucose 150 H (74-99) mg/dL Calcium 7.8 L (8.4-10.2) mg/dL Total Bilirubin 1.3 (0.2-1.3) mg/dL AST 55 H (14-36) U/L ALT 12 (4-34) U/L Alkaline Phosphatase 172 H (38-126) U/L Troponin I (0.000-0.034) ng/mL Total Protein 7.6 (6.3-8.2) g/dL Albumin 2.2 L (3.5-5.0) g/dL Stool Occult Blood Positive H (Negative) 11/06/19 11/06/19 Range/Units 17:02 17:02 WBC (3.8-10.6) k/uL RBC (3.80-5.40) m/uL Hgb (11.4-16.0) gm/dL Hct (34.0-46.0) % MCV (80.0-100.0) fL MCH (25.0-35.0) pg MCHC (31.0-37.0) g/dL RDW (11.5-15.5) % Plt Count (150-450) k/uL Neutrophils % (Manual) % Lymphocytes % (Manual) % Monocytes % (Manual) % Eosinophils % (Manual) % Neutrophils # Neutrophils # (Manual) (1.3-7.7) k/uL Lymphocytes # (Manual) (1.0-4.8) k/uL Monocytes # (Manual) (0-1.0) k/uL Eosinophils # (Manual) (0-0.7) k/uL Nucleated RBCs (0-0) /100 WBC Manual Slide Review Polychromasia Hypochromasia Anisocytosis Macrocytosis Target Cells Ovalocytes PT 12.6 H (9.0-12.0) sec INR 1.3 H (<1.2) APTT 30.8 H (22.0-30.0) sec Sodium (137-145) mmol/L Potassium (3.5-5.1) mmol/L Chloride (98-107) mmol/L Carbon Dioxide (22-30) mmol/L Anion Gap mmol/L BUN (7-17) mg/dL Creatinine (0.52-1.04) mg/dL Est GFR (CKD-EPI)AfAm (>60 ml/min/1.73 sqM) Est GFR (CKD-EPI)NonAf (>60 ml/min/1.73 sqM) Glucose (74-99) mg/dL Calcium (8.4-10.2) mg/dL Total Bilirubin (0.2-1.3) mg/dL AST (14-36) U/L ALT (4-34) U/L Alkaline Phosphatase (38-126) U/L Troponin I <0.012 (0.000-0.034) ng/mL Total Protein (6.3-8.2) g/dL Albumin (3.5-5.0) g/dL Stool Occult Blood (Negative) Disposition Is patient prescribed a controlled substance at d/c from ED?: No Time of Disposition: 18:42 Decision to Admit Reason: Admit from EC Decision Date: 11/06/19 Decision Time: 18:42 <Marian Scott - Last Filed: 11/06/19 18:53> <Fernando Abad - Last Filed: 11/06/19 20:16> Clinical Impression: GI bleed, Anemia, Chronic kidney disease, Weakness, Cold intolerance Disposition: ADMITTED IP TO THIS [facility] Condition: Stable Referrals: Bebeto Davila MD [Primary Care Provider] - 1-2 days
[2019-11-06] MEDS ORDERED: MAGNESIUM HYDROXIDE 2,400 MG/10 ML CUP PO PRN (19:24)
[2019-11-06] MEDS ORDERED: traMADol 50 MG TAB PO PRN (19:24)
[2019-11-06] MEDS ORDERED: ACETAMINOPHEN TAB 325 MG TAB PO PRN (19:24)
[2019-11-06] MEDS ORDERED: ONDANSETRON 4 MG/2 ML VIAL IVP PRN (20:14)
[2019-11-06] MEDS ORDERED: NALOXONE 0.4 MG/ML 1 ML VIAL IV PRN (20:14)
[2019-11-06] MEDS: TRIAMCINOLONE 0.1% CREAM 80 GM TUBE TOPICAL SCH (21:25)
[2019-11-06] MEDS: DONEPEZIL 10 MG TAB PO SCH (21:25)
[2019-11-06] MEDS: DIPHENOX-ATROP 2.5-0.025 MG 1 EACH TAB PO SCH (21:25)
[2019-11-06] MEDS: GABAPENTIN 100 MG CAP PO SCH (21:25)
[2019-11-06] MEDS: NYSTATIN 100,000UNIT/GM CREAM 30 GM TUBE TOPICAL SCH (21:25)
[2019-11-06] MEDS ORDERED: NYSTAT-TRIAMCIN 100,000-0.1 UNIT/GM-% CREAM 30 GM TUBE TOPICAL SCH (22:00)
[2019-11-07] MEDS: FLUTICASONE 110 MCG INHALER INHALATION SCH ×3 (00:18→19:57)
[2019-11-07] MEDS: DIPHENOX-ATROP 2.5-0.025 MG 1 EACH TAB PO SCH ×4 (00:45→20:06)
[2019-11-07] MEDS: LEVOTHYROXINE 25 MCG TAB PO SCH (06:15)
[2019-11-07 07:17] LABS: Anisocytosis Slight; HCT 26.9 % (34.0-46.0); Hypochromasia Marked; MCH 31.5 pg (25.0-35.0); MCHC 29.7 g/dL (31.0-37.0); MCV 106.1 fL (80.0-100.0); Macrocytosis Marked; Mean Platelet Volume 11.8; Poikilocytosis Slight; RBC 2.54 m/uL (3.80-5.40); RDW 19.8 % (11.5-15.5); WBC 9.8 k/uL (3.8-10.6)
[2019-11-07 07:29] LABS: Albumin 2.1 g/dL (3.5-5.0); Potassium 4.4 mmol/L (3.5-5.1); Total Bilirubin 1.5 mg/dL (0.2-1.3); Total Protein 7.4 g/dL (6.3-8.2)
[2019-11-07 10:25] LABS: Eosinophils # (M) 0.29 k/uL (0-0.7); Lymphocytes # (M) 0.69 k/uL (1.0-4.8); Monocytes # (M) 0.69 k/uL (0-1.0); Neutrophils # (M) 8.13 k/uL (1.3-7.7); Neutrophils % (M) 83 %; Nucleated Red Blood Cells 0 /100 WBC (0-0); Total Cells Counted 100
[2019-11-07 10:27] LABS: Platelet Count 74 k/uL (150-450); Target Cells Present
--- NOTE | 2019-11-07 11:06 | HP ---
HISTORY AND PHYSICAL This is a 74-year-old white female with low hemoglobin who presented with 6.5. She had dark black stool. She has as history of esophageal bleeding. She is very short of breath and delirious at times due to low hemoglobin. We gave a unit of blood, admitted to the hospital. GI consult for possibly EGD. HOME MEDICINES: 1. Aricept 10 mg daily. 2. Synthroid 25 daily. 3. Zyrtec 10 daily. 4. Lexapro 10 daily. 5. Namenda 10 b.i.d. 6. Requip 0.5 q.h.s. 7. Lomotil 2.5 q.6 hours. 8. Aranesp 40 mg mcg subcu every week. 9. Nystatin cream. 10.Protonix 40 b.i.d. 11.Inderal 0 t.i.d. 12.Norvasc 5 mg daily. 13.QVAR 80 one puff b.i.d. 14.Santyl topically daily. 15.Lasix 40 mg daily and 20 mg at 2 o'clock, 40 mg at 6 a.m. 16.Neurontin 200 b.i.d. 17.Primatene 5 mg t.i.d. REVIEW OF SYSTEMS: Fourteen-point review of systems otherwise negative. PAST MEDICAL HISTORY: Atrial fibrillation, heart failure, COPD, CVA, TIA, GERD, GI bleed, esophageal varices, cirrhosis, portal hypertension, hypertension, dyslipidemia, osteoarthritis. She has dementia, forgetfulness. Chemo 6 years ago for uterine cancer, history of TIA, anemia. SURGICAL HISTORY: Hysterectomy, tonsillectomy. She has had EGD, colonoscopy, bilateral cataracts, anxiety, depression, former smoker. FAMILY HISTORY: Mother with cancer. Father with cancer. PE: Temp 97.5, pulse 66, respiratory 16-20, blood pressure is 120s over 50s. GENERAL: She is alert, oriented, in no acute distress. She is little bit confused but finally recognize me when talking to me. CARDIOVASCULAR: Regular rate and rhythm. LUNGS: Clear. GI: Soft. MUSCULOSKELETAL: Normal range of motion. NEUROLOGIC: Alert and oriented x3. SKIN: Warm and dry. PSYCH: Fair mood and affect. Normal judgment. LABORATORY DATA: Hemoglobin is 7, white count 10.9, BUN 62, creatinine 1.77. ASSESSMENT: Acute gastrointestinal bleed with severe anemia. PLAN: Transfuse 1 unit of blood. Get GI recommendations for another blood transfusion versus EGD. Get renal physician for renal insufficiency. I examined the patient and did H&P on 11/06/2019 in the emergency room at 8:00 p.m. PINKY / ALIZE: [id number] /
[2019-11-07] MEDS: amLODIPine 5 MG TAB PO SCH (11:39)
[2019-11-07] MEDS: FUROSEMIDE 40 MG TAB PO SCH (11:39)
[2019-11-07] MEDS: FERROUS SULFATE 325 MG TAB PO SCH ×2 (11:39→17:47)
[2019-11-07] MEDS: ESCITALOPRAM 10 MG TAB PO SCH (11:39)
[2019-11-07] MEDS: GABAPENTIN 100 MG CAP PO SCH ×2 (11:39→20:06)
[2019-11-07] MEDS: LORATADINE 10 MG TAB PO SCH (11:40)
[2019-11-07] MEDS: PANTOPRAZOLE 40 MG TABLET PO SCH ×2 (11:40→17:47)
[2019-11-07] MEDS: MIDODRINE 5 MG TAB PO SCH ×3 (11:40→17:47)
[2019-11-07] MEDS: MEMANTINE 10 MG TAB PO SCH ×2 (11:40→17:47)
[2019-11-07] MEDS: NYSTATIN 100,000UNIT/GM CREAM 30 GM TUBE TOPICAL SCH ×4 (11:42→20:06)
[2019-11-07] MEDS: TRIAMCINOLONE 0.1% CREAM 80 GM TUBE TOPICAL SCH ×4 (11:43→20:07)
[2019-11-07] MEDS: PROPRANOLOL 10 MG TAB PO SCH ×3 (11:44→17:49)
[2019-11-07] MEDS ORDERED: SACCHAROMYCES BOULARDII 250 MG PO SCH (17:00)
[2019-11-07] MEDS ORDERED: NON FORMULARY DRUG (Vitamin B Complex [Vitamin B Complex] 1 CAP) PO SCH (17:00)
[2019-11-07] MEDS: FUROSEMIDE 20 MG TAB PO SCH (17:47)
[2019-11-07] MEDS: DONEPEZIL 10 MG TAB PO SCH (20:06)
[2019-11-07] MEDS: SODIUM FERRIC GLUCONAT-SUCROSE 125 MG in SODIUM CHLORIDE 0.9% 100 ML IVPB SCH (21:44)
--- NOTE | 2019-11-07 22:01 | P.CONS ---
History of Present Illness - Reason for Consult Consult date: 11/07/19 Anemia Requesting physician: Bebeto Davila - Chief Complaint Anemia - History of Present Illness 74-year-old female with medical morbidities including chronic persistent anemia, decompensated alcoholic cirrhosis with varices, COPD, uterine cancer who presented due to anemia found on outpatient laboratory draw. Patient was found to have a hemoglobin of 6.5 and instructed to come to the hospital for further evaluation. She did report some dark stools over the past few days as well as feeling weak and with some shortness of breath. Patient has been treated for anemia since 2014 and follows with the hematology/oncology service. She has a known history of decompensated alcoholic cirrhosis and has previously undergone banding of varices multiple prior upper endoscopies in the past including in 07/2019 and 09/05/2019 at which time very small distal esophageal varices as well as mild portal hypertensive gastropathy and a small hiatal hernia were found with no active bleeding. She has also been noted to have angiectasia in the duodenum in the past treated with cold probe ablation therapy. She underwent repeat EGD and colonoscopy in 09/16/2019 with no active bleeding found as well as findings of a few columns of small nonbleeding esophageal varices a small hiatal hernia and mild portal hypertensive gastropathy as well as diminutive descending colon polyp on colonoscopy and low-grade internal hemorrhoids. She subsequently underwent video capsule endoscopy with findings of small bowel angiectasia. Currently she is seen lying in bed with no acute complaints asking to be discharged home tomorrow. Review of Systems REVIEW OF SYSTEMS: CONSTITUTIONAL: Denies any fevers, chills, weight change but she does report some fatigue and weakness. CARDIOVASCULAR: Denies any chest pain, palpitations high or low blood pressures RESPIRATORY: Denies any shortness of breath, hemoptysis or cough. GENITOURINARY: No dysuria or hematuria. MUSCULOSKELETAL: No focal muscular weakness reported. SKIN: Denies any new rashes or lesions, jaundice or pallor. PSYCHIATRIC: Denies any depression or anxiety. NEUROLOGY: Denies headache, denies any new focal deficits. EARS/NOSE/THROAT: No recent hearing change, congestion, nasal discharge or sore throat. EYES: No pain in eyes, discharge or change in vision. GASTROINTESTINAL: As per HPI. Past Medical History Past Medical History: Atrial Fibrillation, Cancer, Heart Failure, COPD, CVA/TIA, GERD/Reflux, GI Bleed, Hyperlipidemia, Hypertension, Osteoarthritis (OA) Additional Past Medical History / Comment(s): hx. uterine cancer, chemo 6 years ago, TIA several yrs. ago-forgetful, neuropathy feet & legs & hands, ANEMIA History of Any Multi-Drug Resistant Organisms: None Reported Past Surgical History: Hysterectomy, Tonsillectomy Additional Past Surgical History / Comment(s): COLONOSCOPY. EGD. BILAT CATARACTS REMOVED Past Anesthesia/Blood Transfusion Reactions: No Reported Reaction Past Psychological History: Anxiety, Depression Smoking Status: Former smoker Past Alcohol Use History: None Reported Past Drug Use History: None Reported - Past Family History Mother Family Medical History: Cancer Father History Unknown: Yes Family Medical History: Cancer Brother(s) Family Medical History: Cancer Medications and Allergies Home Medications Medication Instructions Recorded Confirmed Type Ferrous Sulfate [Feosol] 325 mg PO BID@0800,1700 10/29/16 11/06/19 History Donepezil [Aricept] 10 mg PO HS@209911/07/17 11/06/19 History Levothyroxine Sodium [Synthroid] 25 mcg PO DAILY@0600 11/07/17 11/06/19 History Cetirizine HCl [Zyrtec] 10 mg PO DAILY@0800 01/14/19 11/06/19 History Escitalopram [Lexapro] 10 mg PO DAILY@0800 01/14/19 11/06/19 History Memantine [Namenda] 10 mg PO BID@0800,1700 01/14/19 11/06/19 History Loperamide [Imodium] 2 - 4 mg PO Q12H PRN 09/28/19 11/06/19 History Vitamin B Complex 1 cap PO DAILY@169909/28/19 11/06/19 History rOPINIRole HCL [Requip] 0.5 mg PO HS@209909/28/19 11/06/19 History traMADol HCl [Ultram] 50 mg PO BID PRN #6 tab 10/01/19 11/06/19 Rx Acetaminophen [Acetaminophen 8 650 mg PO Q4H PRN 10/21/19 11/06/19 History Hour] Cholestyramine/Aspartame 4 gm PO DAILY@0 10/21/19 11/06/19 History [Cholestyramine Light Packet] Darbepoetin Chilo [Aranesp] 40 mcg SQ TH@1700 10/21/19 11/06/19 History Diphenoxylate HCl/Atropine 1 tab PO Q6H 10/21/19 11/06/19 History [Lomotil 2.5-0.025 mg Tablet] Liquacel 30 ml PO BID@0800,1700 10/21/19 11/06/19 History Nystatin/Triamcin 1 applicate TOPICAL QID 10/21/19 11/06/19 History [Nystatin-Triamcinolone Cream] Pantoprazole Sodium [Protonix] 40 mg PO BID@0800,1700 10/21/19 11/06/19 History Propranolol [Inderal] 10 mg PO TID@0800,1200,0 10/21/19 11/06/19 History Saccharomyces Boulardii 250 mg PO DAILY@1700 10/21/19 11/06/19 History amLODIPine [Norvasc] 5 mg PO DAILY@0800 10/21/19 11/06/19 History Beclomethasone Dip 80 Mcg/Puff 1 puff INHALATION RT-BID 11/06/19 11/06/19 History [Qvar 80 mcg] Collagenase [Santyl] 1 applic TOPICAL DAILY 11/06/19 11/06/19 History Furosemide [Lasix] 20 mg PO DAILY@17011/06/19 11/06/19 History Furosemide [Lasix] 40 mg PO DAILY@0800 11/06/19 11/06/19 History Gabapentin [Neurontin] 200 mg PO BID@0800,2100 11/06/19 11/06/19 History Magnesium Hydroxide [Milk of 7,200 mg PO DAILY PRN 11/06/19 11/06/19 History Magnesia Concentrate] Midodrine [ProAmatine] 5 mg PO TID@0800,1200,1700 11/06/19 11/06/19 History Na Phos,M-B/Na Phos,Di-Ba [Fleet 133 ml RECTAL ONCE PRN 11/06/19 11/06/19 History Adult] bisacodyL [Dulcolax] 10 mg RECTAL DAILY PRN 11/06/19 11/06/19 History Allergies Allergy/AdvReac Type Severity Reaction Status Date / Time No Known Allergies Allergy Verified 11/06/19 18:11 Physical Exam Vitals: Vital Signs Temp Pulse Pulse Resp BP BP Pulse Ox 11/07/19 11:20 97.6 F 53 L 18 119/45 97 11/07/19 09:45 96.7 F L 59 L 16 120/48 92 L 11/07/19 03:58 97.6 F 58 L 16 98/66 98 11/07/19 03:26 51 L 16 11/07/19 01:04 97.8 F 58 L 16 102/42 97 11/06/19 23:51 56 L 18 11/06/19 23:50 97.7 F 56 L 18 114/66 97 11/06/19 22:29 97.7 F 56 L 16 114/46 97 11/06/19 21:59 97.6 F 54 L 18 104/43 95 11/06/19 21:52 97.5 F L 53 L 18 111/44 96 11/06/19 21:49 97.5 F L 56 L 18 111/44 96 11/06/19 21:00 97.5 F L 62 18 116/51 92 L 11/06/19 20:39 62 17 121/46 94 L 11/06/19 16:03 97.5 F L 62 17 127/54 97 Intake and Output 11/06/19 11/07/19 11/07/19 22:59 06:59 14:59 Intake Total 0 620 Balance 0 620 Intake: Blood Product 0 620 Rc As-1 Unit 0 310 [id number] Other: Voiding Method Bedpan Bedpan Diaper Diaper Incontinent Incontinent # Voids 1 1 2 Weight 72 kg 71.5 kg On physical examination, patient appears comfortable in no apparent distress. HEAD: Normocephalic, atraumatic. EYES: No scleral icterus. No conjunctival injection. MOUTH: No lesions, tongue midline. NECK: Trachea midline, no gross abnormalities. CHEST: Decreased air entry in all lung [place]. HEART: S1-S2 appreciated. ABDOMEN: Soft, obese. Bowel sounds are positive. No organomegaly. No guarding or rigidity. EXTREMITIES: No pedal edema. SKIN: No rashes, no jaundice. NEUROLOGIC: Alert and oriented x3. No focal deficits. Results CBC & Chem 7: 11/07/19 06:33 11/07/19 06:18 Labs: Abnormal Lab Results - Last 24 Hours (Table) 11/06/19 11/06/19 11/06/19 Range/Units 17:02 17:02 17:02 WBC 10.9 H (3.8-10.6) k/uL RBC 2.19 L (3.80-5.40) m/uL Hgb 7.0 L (11.4-16.0) gm/dL Hct 23.1 L (34.0-46.0) % MCV 105.6 H (80.0-100.0) fL MCHC 30.2 L (31.0-37.0) g/dL RDW 20.7 H (11.5-15.5) % Plt Count 77 L (150-450) k/uL Neutrophils # (Manual) 9.81 H (1.3-7.7) k/uL Lymphocytes # (Manual) 0.65 L (1.0-4.8) k/uL Macrocytosis Marked A PT (9.0-12.0) sec INR (<1.2) APTT (22.0-30.0) sec Potassium 5.5 H (3.5-5.1) mmol/L Chloride 113 H (98-107) mmol/L Carbon Dioxide 20 L (22-30) mmol/L BUN 62 H (7-17) mg/dL Creatinine 1.77 H (0.52-1.04) mg/dL Glucose 150 H (74-99) mg/dL Calcium 7.8 L (8.4-10.2) mg/dL Total Bilirubin (0.2-1.3) mg/dL AST 55 H (14-36) U/L Alkaline Phosphatase 172 H (38-126) U/L Albumin 2.2 L (3.5-5.0) g/dL Stool Occult Blood Positive H (Negative) Crossmatch 11/06/19 11/06/19 11/07/19 Range/Units 17:02 18:37 06:18 WBC (3.8-10.6) k/uL RBC (3.80-5.40) m/uL Hgb (11.4-16.0) gm/dL Hct (34.0-46.0) % MCV (80.0-100.0) fL MCHC (31.0-37.0) g/dL RDW (11.5-15.5) % Plt Count (150-450) k/uL Neutrophils # (Manual) (1.3-7.7) k/uL Lymphocytes # (Manual) (1.0-4.8) k/uL Macrocytosis PT 12.6 H (9.0-12.0) sec INR 1.3 H (<1.2) APTT 30.8 H (22.0-30.0) sec Potassium (3.5-5.1) mmol/L Chloride 114 H (98-107) mmol/L Carbon Dioxide (22-30) mmol/L BUN 61 H (7-17) mg/dL Creatinine 1.85 H (0.52-1.04) mg/dL Glucose (74-99) mg/dL Calcium 8.0 L (8.4-10.2) mg/dL Total Bilirubin 1.5 H (0.2-1.3) mg/dL AST (14-36) U/L Alkaline Phosphatase 179 H (38-126) U/L Albumin 2.1 L (3.5-5.0) g/dL Stool Occult Blood (Negative) Crossmatch See Detail 11/07/19 Range/Units 06:33 WBC (3.8-10.6) k/uL RBC 2.54 L (3.80-5.40) m/uL Hgb 8.0 L (11.4-16.0) gm/dL Hct 26.9 L (34.0-46.0) % MCV 106.1 H (80.0-100.0) fL MCHC 29.7 L (31.0-37.0) g/dL RDW 19.8 H (11.5-15.5) % Plt Count 74 L (150-450) k/uL Neutrophils # (Manual) 8.13 H (1.3-7.7) k/uL Lymphocytes # (Manual) 0.69 L (1.0-4.8) k/uL Macrocytosis Marked A PT (9.0-12.0) sec INR (<1.2) APTT (22.0-30.0) sec Potassium (3.5-5.1) mmol/L Chloride (98-107) mmol/L Carbon Dioxide (22-30) mmol/L BUN (7-17) mg/dL Creatinine (0.52-1.04) mg/dL Glucose (74-99) mg/dL Calcium (8.4-10.2) mg/dL Total Bilirubin (0.2-1.3) mg/dL AST (14-36) U/L Alkaline Phosphatase (38-126) U/L Albumin (3.5-5.0) g/dL Stool Occult Blood (Negative) Crossmatch Assessment and Plan (1) Iron deficiency anemia due to chronic blood loss Narrative/Plan: 74-year-old female with a known history of chronic iron deficiency anemia, decompensated alcoholic cirrhosis with varices who presented to the hospital due to low hemoglobin on outpatient laboratory evaluation with a hemoglobin of 6.5. Currently hemoglobin is improved status post transfusion. She does report weakness, some shortness of breath and dark stools prior to presentation. She underwent full endoscopic evaluation on 09/16/2019 with findings of small nonbleeding esophageal varices, mild portal hypertensive gastropathy, hiatal hernia, and hemorrhoids and polypectomy on EGD and colonoscopy. This was followed by video capsule endoscopy with findings of small bowel angiectasia. Anemia likely multifactorial given history of alcohol abuse, currently abstinent from alcohol, myelosuppression, anemia of chronic disease as well as chronic blood loss from small bowel angiectasia. Current Visit: No Status: Chronic Priority: Medium Code(s): D50.0 - IRON DEFICIENCY ANEMIA SECONDARY TO BLOOD LOSS (CHRONIC) SNOMED Code(s): 078063981 (2) Esophageal varices determined by endoscopy Current Visit: No Status: Chronic Priority: Medium Code(s): I85.00 - ESOPHAGEAL VARICES WITHOUT BLEEDING SNOMED Code(s): 00479138 (3) Liver cirrhosis Current Visit: No Status: Chronic Priority: Medium Code(s): K74.60 - UNSPECIFIED CIRRHOSIS OF LIVER SNOMED Code(s): 70632852 Plan: Supportive care Continue monitor hemoglobin and hematocrit and transfuse as needed Continue medical management Continue to monitor for signs or symptoms of GI bleeding At this time patient would like medical management given extensive endoscopic evaluation in the past including EGD, colonoscopy and video capsule endoscopy in August Thank you for allowing us to participate in the care of the patient we will continue to follow
--- NOTE | 2019-11-07 22:18 | PN ---
PROGRESS NOTE This is a 74-year-old white female who came in. Her hemoglobin is 8 after 1 unit of blood. Waiting for GI recommendations for hemoglobin and possible endoscopy. We will check a hemoglobin again in the morning. Await for GI recommendations. Possible discharge back to the rehab center or to home if her hemoglobin stabilizes. Still waiting on GI recommendations. Cardiovascular S1, S2. Lungs clear. GI soft. Psych: She has a little bit of dementia, but otherwise she is doing okay, giving appropriate answers. Follow up next 24 to 48 hours. Wait for GI recommendations. MMODL / IJN: [id number] /
[2019-11-08] MEDS: DIPHENOX-ATROP 2.5-0.025 MG 1 EACH TAB PO SCH ×4 (01:04→16:56)
[2019-11-08] MEDS: LEVOTHYROXINE 25 MCG TAB PO SCH (06:07)
[2019-11-08 06:48] LABS: Albumin 2.1 g/dL (3.5-5.0); Potassium 4.4 mmol/L (3.5-5.1); Total Bilirubin 1.3 mg/dL (0.2-1.3); Total Protein 7.4 g/dL (6.3-8.2)
[2019-11-08 06:51] LABS: Anisocytosis Slight; HCT 27.5 % (34.0-46.0); HGB 8.3 gm/dL (11.4-16.0); Hypochromasia Marked; MCH 31.8 pg (25.0-35.0); MCHC 30.2 g/dL (31.0-37.0); MCV 105.6 fL (80.0-100.0); Macrocytosis Marked; Mean Platelet Volume 12.2; Poikilocytosis Slight; RDW 19.8 % (11.5-15.5); WBC 8.7 k/uL (3.8-10.6)
[2019-11-08 07:04] LABS: Platelet Count 65 k/uL (150-450)
[2019-11-08 07:27] LABS: Eosinophils # (M) 0.44 k/uL (0-0.7); Lymphocytes # (M) 0.09 k/uL (1.0-4.8); Monocytes # (M) 0.35 k/uL (0-1.0); Neutrophils # (M) 7.83 k/uL (1.3-7.7); Neutrophils % (M) 90 %; Nucleated Red Blood Cells 0 /100 WBC (0-0); Total Cells Counted 100
[2019-11-08] MEDS: FLUTICASONE 110 MCG INHALER INHALATION SCH ×2 (07:59→19:06)
[2019-11-08] MEDS: SODIUM FERRIC GLUCONAT-SUCROSE 125 MG in SODIUM CHLORIDE 0.9% 100 ML IVPB SCH (09:33)
[2019-11-08] MEDS: ESCITALOPRAM 10 MG TAB PO SCH (10:44)
[2019-11-08] MEDS: FERROUS SULFATE 325 MG TAB PO SCH ×2 (10:44→16:55)
[2019-11-08] MEDS: amLODIPine 5 MG TAB PO SCH (10:44)
[2019-11-08] MEDS: PROPRANOLOL 10 MG TAB PO SCH ×3 (10:44→16:56)
[2019-11-08] MEDS: MEMANTINE 10 MG TAB PO SCH ×2 (10:45→16:56)
[2019-11-08] MEDS: PANTOPRAZOLE 40 MG TABLET PO SCH ×2 (10:45→16:56)
[2019-11-08] MEDS: MIDODRINE 5 MG TAB PO SCH ×3 (10:45→16:58)
[2019-11-08] MEDS: GABAPENTIN 100 MG CAP PO SCH ×2 (10:45→20:45)
[2019-11-08] MEDS: LORATADINE 10 MG TAB PO SCH (10:45)
[2019-11-08] MEDS: FUROSEMIDE 40 MG TAB PO SCH (10:45)
[2019-11-08] MEDS: NYSTATIN 100,000UNIT/GM CREAM 30 GM TUBE TOPICAL SCH ×4 (10:45→20:45)
[2019-11-08] MEDS: TRIAMCINOLONE 0.1% CREAM 80 GM TUBE TOPICAL SCH ×4 (10:46→20:45)
[2019-11-08] MEDS: COLLAGENASE 250 UNIT/GM OINTMENT 30 GM TUBE TOPICAL SCH (12:06)
[2019-11-08] MEDS: FUROSEMIDE 20 MG TAB PO SCH (16:56)
[2019-11-08] MEDS: DONEPEZIL 10 MG TAB PO SCH (20:44)
--- NOTE | 2019-11-08 21:28 | P.PN ---
Subjective Progress Note Date: 11/08/19 Principal diagnosis: Decompensated alcoholic cirrhosis, iron deficiency anemia due to chronic blood loss The patient is seen lying in bed today. Loose nonbloody non-melanotic bowel movement this morning. Tolerating diet. Objective - Vital Signs Vital signs: Vital Signs Temp 98.3 F 11/08/19 03:45 Pulse 61 11/08/19 03:45 Resp 16 11/08/19 03:45 BP 110/51 11/08/19 03:45 Pulse Ox 91 L 11/08/19 03:45 Intake & Output 11/07/19 11/08/19 11/08/19 18:59 06:59 18:59 Intake Total 120 400 480 Balance 120 400 480 Weight 73.5 kg Intake: Intake, IV Titration 100 Amount Sodium Ferric Gluconat- 100 Sucrose 125 mg In Sodium Chloride 0.9% 100 ml @ 100 mls/hr IVPB DAILY [facility] Rx#:[id number] Oral 120 300 480 Other: Voiding Method Bedpan Diaper Diaper Incontinent Incontinent # Voids 2 1 2 - Exam On physical examination, patient appears comfortable in no apparent distress. HEAD: Normocephalic, atraumatic. EYES: No scleral icterus. No conjunctival injection. MOUTH: No lesions, tongue midline. NECK: Trachea midline, no gross abnormalities. ABDOMEN: Soft, obese. Bowel sounds are positive. No organomegaly. No guarding or rigidity. EXTREMITIES: No pedal edema. SKIN: No rashes, no jaundice. NEUROLOGIC: Alert and oriented. No focal deficits. - Labs CBC & Chem 7: 11/08/19 06:11 11/08/19 06:29 Labs: Abnormal Lab Results - Last 24 Hours (Table) 11/08/19 11/08/19 Range/Units 06:11 06:29 RBC 2.60 L (3.80-5.40) m/uL Hgb 8.3 L (11.4-16.0) gm/dL Hct 27.5 L (34.0-46.0) % MCV 105.6 H (80.0-100.0) fL MCHC 30.2 L (31.0-37.0) g/dL RDW 19.8 H (11.5-15.5) % Plt Count 65 L (150-450) k/uL Neutrophils # (Manual) 7.83 H (1.3-7.7) k/uL Lymphocytes # (Manual) 0.09 L (1.0-4.8) k/uL Macrocytosis Marked A Chloride 114 H (98-107) mmol/L BUN 60 H (7-17) mg/dL Creatinine 1.94 H (0.52-1.04) mg/dL Calcium 8.0 L (8.4-10.2) mg/dL Alkaline Phosphatase 179 H (38-126) U/L Albumin 2.1 L (3.5-5.0) g/dL Assessment and Plan (1) Iron deficiency anemia due to chronic blood loss Narrative/Plan: 74-year-old female with a known history of chronic iron deficiency anemia, decompensated alcoholic cirrhosis with varices who presented to the hospital due to low hemoglobin on outpatient laboratory evaluation with a hemoglobin of 6.5. Currently hemoglobin is improved status post transfusion. She does report weakness, some shortness of breath and dark stools prior to presentation. She underwent full endoscopic evaluation on 09/16/2019 with findings of small nonbleeding esophageal varices, mild portal hypertensive gastropathy, hiatal hernia, and hemorrhoids and polypectomy on EGD and colonoscopy. This was followed by video capsule endoscopy with findings of small bowel angiectasia. Anemia likely multifactorial given history of alcohol abuse, currently abstinent from alcohol, myelosuppression, anemia of chronic disease as well as chronic blood loss from small bowel angiectasia. Current Visit: No Status: Chronic Priority: Medium Code(s): D50.0 - IRON DEFICIENCY ANEMIA SECONDARY TO BLOOD LOSS (CHRONIC) SNOMED Code(s): 042918855 (2) Esophageal varices determined by endoscopy Current Visit: No Status: Chronic Priority: Medium Code(s): I85.00 - ESOPHAGEAL VARICES WITHOUT BLEEDING SNOMED Code(s): 16624112 (3) Liver cirrhosis Current Visit: No Status: Chronic Priority: Medium Code(s): K74.60 - UNSPECIFIED CIRRHOSIS OF LIVER SNOMED Code(s): 50521869 Plan: Supportive care Continue monitor hemoglobin and hematocrit and transfuse as needed Continue medical management Continue to monitor for signs or symptoms of GI bleeding At this time patient would like medical management given extensive endoscopic evaluation in the past including EGD, colonoscopy and video capsule endoscopy in August Thank you for allowing us to participate in the care of the patient we will continue to follow
--- NOTE | 2019-11-09 01:26 | PN ---
PROGRESS NOTE A 74-year-old white female was admitted with iron deficiency anemia secondary to chronic blood loss. Hemoglobin is up to 8.5 after getting Venofer for the past 2 days. History of esophageal varices, shortness of breath, dark stools, mild portal hypertensive gastropathy, small bowel angiectasia recently, prior history of alcohol abuse. Currently abstinent from alcohol. She has history of liver cirrhosis, esophageal varices. Hemoglobin is stabilized with no severe signs of any bleeding. Hemoglobin keeps to be going up at this point. PSYCH: Fair mood and affect. NEUROLOGIC: Alert and oriented x3. HEMATOLOGY: Negative Homans. Blood pressure 100 to 110 over 40s to 50s, O2 of 97%, temp 97 to 98. PLAN: Await for recommendations by GI. If he does not do anything, hemoglobin stabilized after 1 unit of blood, which has been given, we possibly will discharge home tomorrow with outpatient iron infusions. MMODL / IJN: [id number] /
[2019-11-09] MEDS: DIPHENOX-ATROP 2.5-0.025 MG 1 EACH TAB PO SCH ×4 (02:25→21:04)
[2019-11-09] MEDS: LEVOTHYROXINE 25 MCG TAB PO SCH (06:32)
[2019-11-09 06:46] LABS: Anisocytosis Moderate; HCT 26.8 % (34.0-46.0); HGB 8.1 gm/dL (11.4-16.0); Hypochromasia Marked; MCH 31.6 pg (25.0-35.0); MCHC 30.3 g/dL (31.0-37.0); MCV 104.3 fL (80.0-100.0); Macrocytosis Marked; Mean Platelet Volume 11.9; RBC 2.57 m/uL (3.80-5.40); RDW 20.1 % (11.5-15.5); WBC 8.2 k/uL (3.8-10.6)
[2019-11-09 06:54] LABS: Platelet Count 60 k/uL (150-450)
[2019-11-09 07:10] LABS: Calcium 7.8 mg/dL (8.4-10.2); Potassium 4.2 mmol/L (3.5-5.1)
[2019-11-09] MEDS: FLUTICASONE 110 MCG INHALER INHALATION SCH ×2 (07:31→19:53)
[2019-11-09] MEDS: SODIUM FERRIC GLUCONAT-SUCROSE 125 MG in SODIUM CHLORIDE 0.9% 100 ML IVPB SCH (08:58)
[2019-11-09 09:32] LABS: Eosinophils # (M) 0.16 k/uL (0-0.7); Lymphocytes # (M) 0.33 k/uL (1.0-4.8); Monocytes # (M) 0.33 k/uL (0-1.0); Neutrophils # (M) 7.38 k/uL (1.3-7.7); Neutrophils % (M) 90 %; Nucleated Red Blood Cells 0 /100 WBC (0-0); Poikilocytosis (M) Present; Rouleaux Present; Total Cells Counted 100
[2019-11-09] MEDS: ESCITALOPRAM 10 MG TAB PO SCH (09:44)
[2019-11-09] MEDS: MEMANTINE 10 MG TAB PO SCH (09:44)
[2019-11-09] MEDS: MIDODRINE 5 MG TAB PO SCH ×3 (09:44→16:52)
[2019-11-09] MEDS: LORATADINE 10 MG TAB PO SCH (09:44)
[2019-11-09] MEDS: FUROSEMIDE 40 MG TAB PO SCH (09:44)
[2019-11-09] MEDS: PANTOPRAZOLE 40 MG TABLET PO SCH ×2 (09:44→16:52)
[2019-11-09] MEDS: PROPRANOLOL 10 MG TAB PO SCH ×3 (09:44→16:52)
[2019-11-09] MEDS: GABAPENTIN 100 MG CAP PO SCH ×2 (09:45→21:04)
[2019-11-09] MEDS: amLODIPine 5 MG TAB PO SCH (09:45)
[2019-11-09] MEDS: FERROUS SULFATE 325 MG TAB PO SCH ×2 (09:45→16:52)
[2019-11-09] MEDS: TRIAMCINOLONE 0.1% CREAM 80 GM TUBE TOPICAL SCH ×4 (09:46→21:05)
[2019-11-09] MEDS: NYSTATIN 100,000UNIT/GM CREAM 30 GM TUBE TOPICAL SCH ×4 (09:46→21:05)
--- NOTE | 2019-11-09 11:05 | CDI ---
Documentation Clarification Form Date: 11/09/2019 10:56:32 AM From: Julia Cagle CCS, CCDS Admit Date: 11/06/2019 08:15:00 PM Patient Name: Lexii Vale Visit Number: [id number] Discharge Date: ATTENTION: The Clinical Documentation Specialists (CDI) and [facility] Coding Staff appreciate your assistance in clarifying documentation. Please respond to the clarification below the line at the bottom and electronically sign. The CDI & [facility] Coding staff will review the response and follow-up if needed. Please note: Queries are made part of the Legal Health Record. If you have any questions, please contact the author of this message via ITS. Dr. Bebeto Davila: Heart failure is documented in the 11/05 ED note, the 11/06 History & Physical & the 11/06 Gastrointestinal Consult as a past medical history without further specificity. History/Risk Factors: Heart Failure, nos; Atrial Fibrillation, Uterine CA w/hx of Chemotherapy, Previous GI Bleed, Hyperlipidemia, Hypertension, Osteoarthritis, GERD, Anxiety, Depression & Former smoker. Clinical Indicators: Presented to the ED on 11/05 with low hemoglobin, 6.5 & dark black stools, cold & weak. Diagnosed with Iron Deficiency Anemia. VS: T 97.5*, P 62-56*, R 17, BP 127/54, PO 97 2Lnc - 94 2Lnc BNP: Not done this admission. Echocardiogram Results 08/09/2019: sinus rhythm, Mild LVH, Systolic function wnl w/EF 55-60%, Mild aortic valve sclerosis, Mild Aortic regurgitation, Mild Mitral regurgitation, Mild Tricuspid regurgitation. Chest XR: none this admission. Treatment: PO Lasix 40 mg daily (Home dose). Received 1 unit PRBCs for anemia. In your professional opinion, can you please clarify the acuity and type of CHF if known? Heart Failure is ruled out Chronic Systolic Heart Failure: Chronic Diastolic Heart Failure: Chronic Combined Systolic & Diastolic Heart Failure Unable to Determine Other, please specify (Last Revision: June 2017) MTDD
--- NOTE | 2019-11-09 16:50 | DS ---
DISCHARGE SUMMARY DISCHARGE MEDICINE: 1. Iron sulfate 325 p.o. b.i.d. 2. Synthroid 25 mcg daily. 3. Aricept 10 mg daily. 4. Namenda 10 mg b.i.d. 5. Lexapro 10 mg daily. 6. Zyrtec 10 mg daily. 7. Requip 0.5 q.h.s. 8. Vitamin B complex 1 daily. 9. Imodium 2-4 mg q.12 hours. 10.Tramadol 50 b.i.d. 11.Acetaminophen 650 q.4 hours p.r.n. 12.Propranolol 10 mg t.i.d. 13.Lomotil 2.5 q.6 hours. 14.Protonix 40 mg daily. 15.Nystatin topical cream b.i.d. 16. 215 mg daily. 17.Amlodipine 5 mg daily. 18. 40 mcg daily. 19.Milk of magnesia p.r.n. 20.Midodrine 5 mg a.c. t.i.d. 21.QVAR 80 2 puffs b.i.d.. 22.Neurontin 200 t.i.d. 23.Lasix 40 mg q.a.m. two 20 mg 2:00 pm. 24. wrap applied topically daily to wounds. CONDITION: Stable. PROGNOSIS: Guarded. Ambulate as tolerated. White female admitted with severe anemia secondary to possible renal disease, possible GI bleeding. Gave her 1 unit of blood and iron infusions through the IV. She continued to become less symptomatic. She was seen by GI doctor who declined doing further endoscopies at this point. Continue her on Aranesp and possibly some iron infusions if iron pills do not work. We will send back to the rehab center or to home for continued medical treatments. MMODL / IJN: [id number] /
[2019-11-09] MEDS: MEMANTINE 5 MG TAB PO SCH (16:52)
[2019-11-09] MEDS: FUROSEMIDE 20 MG TAB PO SCH (16:52)
[2019-11-09] MEDS: DONEPEZIL 10 MG TAB PO SCH (21:04)
--- NOTE | 2019-11-09 23:20 | PN ---
PROGRESS NOTE A 74-year-old white female with severe anemia. Hemoglobin is 8.1. IV Venofer daily times 3 or 4 days, status post one unit of blood. doctor does not want to do any endoscopy for bleeding. CARDIOVASCULAR: S1, S2. LUNGS: Clear. GI: Soft. HEMATOLOGY: Negative Homans. ASSESSMENT: 1. Gastrointestinal bleed. 2. Anemia. Continue on Venofer, possible discharge back to rehab tomorrow. Family is unable to take her home. Wrote script for tramadol. MMODL / IJN: [id number] /
[2019-11-10] MEDS: DIPHENOX-ATROP 2.5-0.025 MG 1 EACH TAB PO SCH ×2 (01:03→06:16)
[2019-11-10] MEDS: LEVOTHYROXINE 25 MCG TAB PO SCH (06:16)
[2019-11-10] MEDS: FLUTICASONE 110 MCG INHALER INHALATION SCH (08:19)
[2019-11-10] MEDS: LORATADINE 10 MG TAB PO SCH (09:30)
[2019-11-10] MEDS: ESCITALOPRAM 10 MG TAB PO SCH (09:30)
[2019-11-10] MEDS: FERROUS SULFATE 325 MG TAB PO SCH (09:30)
[2019-11-10] MEDS: PROPRANOLOL 10 MG TAB PO SCH ×2 (09:31→12:01)
[2019-11-10] MEDS: FUROSEMIDE 40 MG TAB PO SCH (09:31)
[2019-11-10] MEDS: MEMANTINE 5 MG TAB PO SCH (09:31)
[2019-11-10] MEDS: MIDODRINE 5 MG TAB PO SCH ×2 (09:31→12:01)
[2019-11-10] MEDS: GABAPENTIN 100 MG CAP PO SCH (09:31)
[2019-11-10] MEDS: SODIUM FERRIC GLUCONAT-SUCROSE 125 MG in SODIUM CHLORIDE 0.9% 100 ML IVPB SCH (09:32)
[2019-11-10] MEDS: amLODIPine 5 MG TAB PO SCH (09:32)
[2019-11-10] MEDS: PANTOPRAZOLE 40 MG TABLET PO SCH (09:32)
[2019-11-10] MEDS: NYSTATIN 100,000UNIT/GM CREAM 30 GM TUBE TOPICAL SCH (09:33)
[2019-11-10] MEDS: TRIAMCINOLONE 0.1% CREAM 80 GM TUBE TOPICAL SCH (09:33)
[2019-11-10 10:00] LABS: Anisocytosis Slight; HCT 26.9 % (34.0-46.0); HGB 8.2 gm/dL (11.4-16.0); Hypochromasia Marked; MCH 31.9 pg (25.0-35.0); MCHC 30.4 g/dL (31.0-37.0); MCV 104.7 fL (80.0-100.0); Macrocytosis Marked; Mean Platelet Volume 12.7; RBC 2.56 m/uL (3.80-5.40); RDW 19.9 % (11.5-15.5)
[2019-11-10 10:05] LABS: Platelet Count 65 k/uL (150-450)
[2019-11-10 10:57] VITALS: RESP 18
[2019-11-10 11:05] LABS: Basophils # (M) 0.09 k/uL (0-0.2); Eosinophils # (M) 0.36 k/uL (0-0.7); Lymphocytes # (M) 0.27 k/uL (1.0-4.8); Monocytes # (M) 0.09 k/uL (0-1.0); Neutrophils # (M) 8.19 k/uL (1.3-7.7); Neutrophils % (M) 91 %; Nucleated Red Blood Cells 0 /100 WBC (0-0); Total Cells Counted 100
[2019-11-10 14:07] VITALS: BP 113/65; PULSE 61; TEMP 97.3
--- NOTE | 2019-11-11 13:26 | CDI ---
Documentation Clarification Form Date: 11/11/19 From: Maura Weeks CCS Phone: If you have a question about this query, please contact Jami Buckley, Electronic Maintenance Supervisor at [phone] between 8am and 5pm. Admit Date: 11/06/19 Discharge Date:11/10/19 Patient Name: Lexii Vale Visit Number: [id number] ATTENTION: The Clinical Documentation Specialists (CDI) and [facility] Coding Staff appreciate your assistance in clarifying documentation. Please respond to the clarification below the line at the bottom and electronically sign. The CDI & [facility] Coding staff will review the response and follow-up if needed. Please note: Queries are made part of the Legal Health Record. If you have any questions, please contact the author of this message via ITS. Dear Dr. Davila, CKD is documented in the ED notes. DS documents: severe anemia secondary to possible renal disease, possible GI bleeding. H&P documents: Get renal physician for renal insufficiency. History/Risk Factors: CHF, AFIB, Anemia, GI bleed, Cirrhosis, Alcohol abuse, COPD Clinical Indicators: Renal insufficiency Current BUN: 62, 61, 60 CR: 1.77, 1.85, 1.94 GFR: 28, 26, 25 Treatment: Monitor In order to capture the severity of condition, please clarify the stage of the CKD, if known: CKD Stage 1 (GFR > 90) CKD Stage 2 (GFR 60-89) CKD Stage 3 (GFR 30-59) CKD Stage 4 (GFR 15-29) CKD Stage 5 (GFR <15) ESRD Other, please specify Unable to determine MTDD
[2019-11-12] MEDS ORDERED: DARBEPOETIN ALFA 40 MCG/0.4 ML SYRINGE SQ SCH (17:00)
--- NOTE | 2019-11-13 07:09 | CDI ---
Documentation Clarification Form Date: 11/09/2019 10:56:00 AM From: Julia Cagle CCS, CCDS Admit Date: 11/06/2019 08:15:00 PM Patient Name: Lexii Vale Visit Number: [id number] Discharge Date: 11/10/2019 03:40:00 PM ATTENTION: The Clinical Documentation Specialists (CDI) and [facility] Coding Staff appreciate your assistance in clarifying documentation. Please respond to the clarification below the line at the bottom and electronically sign. The CDI & [facility] Coding staff will review the response and follow-up if needed. Please note: Queries are made part of the Legal Health Record. If you have any questions, please contact the author of this message via ITS. Dr. Bebeto Davila: Heart failure is documented in the 11/05 ED note, the 11/06 History & Physical & the 11/06 Gastrointestinal Consult as a past medical history without further specificity. History/Risk Factors: Heart Failure, nos; Atrial Fibrillation, Uterine CA w/hx of Chemotherapy, Previous GI Bleed, Hyperlipidemia, Hypertension, Osteoarthritis, GERD, Anxiety, Depression & Former smoker. Clinical Indicators: Presented to the ED on 11/05 with low hemoglobin, 6.5 & dark black stools, cold & weak. Diagnosed with Iron Deficiency Anemia. VS: T 97.5*, P 62-56*, R 17, BP 127/54, PO 97 2Lnc - 94 2Lnc BNP: Not done this admission. Echocardiogram Results 08/09/2019: sinus rhythm, Mild LVH, Systolic function wnl w/EF 55-60%, Mild aortic valve sclerosis, Mild Aortic regurgitation, Mild Mitral regurgitation, Mild Tricuspid regurgitation. Chest XR: none this admission. Treatment: PO Lasix 40 mg daily (Home dose). Received 1 unit PRBCs for anemia. In your professional opinion, can you please clarify the acuity and type of CHF if known? Heart Failure is ruled out Chronic Systolic Heart Failure: Chronic Diastolic Heart Failure: Chronic Combined Systolic & Diastolic Heart Failure Unable to Determine Other, please specify (Last Revision: June 2017) MTDD
--- NOTE | 2019-11-14 08:24 | CDI ---
Documentation Clarification Form Date: 11/14/19 From: Maura Weeks CCS Phone: If you have a question about this query, please contact Jami Buckley, Community Planning Technician at [phone] between 8am and 5pm. Admit Date: 11/06/19 Discharge Date:11/10/19 Patient Name: Lexii Vale Visit Number: [id number] ATTENTION: The Clinical Documentation Specialists (CDI) and [facility] Coding Staff appreciate your assistance in clarifying documentation. Please respond to the clarification below the line at the bottom and electronically sign. The CDI & [facility] Coding staff will review the response and follow-up if needed. Please note: Queries are made part of the Legal Health Record. If you have any questions, please contact the author of this message via ITS. Dear Dr. Davila, CKD is documented in the ED notes. DS documents: severe anemia secondary to possible renal disease, possible GI bleeding. H&P documents: Get renal physician for renal insufficiency. History/Risk Factors: CHF, AFIB, Anemia, GI bleed, Cirrhosis, Alcohol abuse, COPD Clinical Indicators: Renal insufficiency Current BUN: 62, 61, 60 CR: 1.77, 1.85, 1.94 GFR: 28, 26, 25 Treatment: Monitor In order to capture the severity of condition, please clarify the stage of the CKD, if known: CKD Stage 1 (GFR > 90) CKD Stage 2 (GFR 60-89) CKD Stage 3 (GFR 30-59) CKD Stage 4 (GFR 15-29) CKD Stage 5 (GFR <15) ESRD Other, please specify Unable to determine MTDD
--- NOTE | 2019-11-15 10:56 | PN ---
PROGRESS NOTE ADDENDUM: IMPRESSION: 1. Congestive heart failure. 2. Acute on chronic diastolic heart failure. 3. Chronic kidney disease stage 4. MMODL / IJN: [id number] /
== END 2019-11-10 15:40 ==
LOC: EC 16:01 → INTOOBSV 20:15 → 3SCARD 20:15 → UNDODISIN 11-10 15:40
PROVIDERS: ADMIT Family Medicine; ATTEND Family Medicine
DX: D50.0 Iron deficiency anemia secondary to blood loss (chronic) (principal); D63.1 Anemia in chronic kidney disease; K76.6 Portal hypertension; K31.89 Other diseases of stomach and duodenum; I85.10 Secondary esophageal varices without bleeding; I99.8 Other disorder of circulatory system; N18.4 Chronic kidney disease, stage 4 (severe); I50.33 Acute on chronic diastolic (congestive) heart failure; K92.2 Gastrointestinal hemorrhage, unspecified; I48.91 Unspecified atrial fibrillation; I13.0 Hypertensive heart and chronic kidney disease with heart failure and stage 1 through stage 4 chronic kidney disease, or unspecified chronic kidney disease; J44.9 Chronic obstructive pulmonary disease, unspecified; K21.9 Gastro-esophageal reflux disease without esophagitis; E78.5 Hyperlipidemia, unspecified; M19.90 Unspecified osteoarthritis, unspecified site; Z20.828 Contact with and (suspected) exposure to other viral communicable diseases; G62.9 Polyneuropathy, unspecified; F41.9 Anxiety disorder, unspecified; F32.9 Major depressive disorder, single episode, unspecified; K70.30 Alcoholic cirrhosis of liver without ascites; F10.11 Alcohol abuse, in remission; F03.90 Unspecified dementia, unspecified severity, without behavioral disturbance, psychotic disturbance, mood disturbance, and anxiety; K44.9 Diaphragmatic hernia without obstruction or gangrene; K64.8 Other hemorrhoids; Z79.890 Hormone replacement therapy; Z79.899 Other long term (current) drug therapy; Z79.52 Long term (current) use of systemic steroids; Z79.51 Long term (current) use of inhaled steroids; Z85.42 Personal history of malignant neoplasm of other parts of uterus; Z87.19 Personal history of other diseases of the digestive system; Z92.21 Personal history of antineoplastic chemotherapy; Z90.710 Acquired absence of both cervix and uterus; Z90.89 Acquired absence of other organs; Z98.890 Other specified postprocedural states; Z98.41 Cataract extraction status, right eye; Z98.42 Cataract extraction status, left eye; Z87.891 Personal history of nicotine dependence; Z86.73 Personal history of transient ischemic attack (TIA), and cerebral infarction without residual deficits; Z86.010 Personal history of colon polyps; Z80.9 Family history of malignant neoplasm, unspecified
CPT/HCPCS: 96365 ×2; 96366 ×3; 96375; 99285; 94640 ×4; 93005; 97162; 97166; 86900; 86901; 36415; 80053 ×4; 84484; 85025 ×5; 85027; 85610; 85730; 86850; 86920; 86870; 86880; 82272; 87635; G0378 ×5; P9016; J2916 ×4; C9113

== ENCOUNTER 2019-11-13 15:58 | Inpatient (IN) | payer MEDICARE, OTHER ==
--- NOTE | 2019-11-13 16:31 | ED ---
General Adult HPI - General Chief complaint: Altered Mental Status Stated complaint: Altered Time Seen by Provider: 11/13/19 16:11 Source: patient, EMS, RN notes reviewed, old records reviewed Mode of arrival: EMS Limitations: altered mental status - History of Present Illness Initial comments: Patient is a pleasant 74-year-old female presenting to the emergency department with concerns by nursing staff of congestive heart failure and some change in m entation. Patient is a poor historian and does not offer significant history. Patient reportedly is alert and oriented 2. Chart reveals recent visit for anemia. Patient has no specific complaints at this time. - Related Data Home Medications Medication Instructions Recorded Confirmed Ferrous Sulfate [Feosol] 325 mg PO BID@0800,1700 10/29/16 11/06/19 Donepezil [Aricept] 10 mg PO HS@2100 11/07/17 11/06/19 Levothyroxine Sodium [Synthroid] 25 mcg PO DAILY@0600 11/07/17 11/06/19 Cetirizine HCl [Zyrtec] 10 mg PO DAILY@0800 01/14/19 11/06/19 Escitalopram [Lexapro] 10 mg PO DAILY@0800 01/14/19 11/06/19 Loperamide [Imodium] 2 - 4 mg PO Q12H PRN 09/28/19 11/06/19 Vitamin B Complex 1 cap PO DAILY@169909/28/19 11/06/19 Darbepoetin Chilo [Aranesp] 40 mcg SQ TH@169910/21/19 11/06/19 Diphenoxylate HCl/Atropine 1 tab PO Q6H 10/21/19 11/06/19 [Lomotil 2.5-0.025 mg Tablet] Liquacel 30 ml PO BID@0800,1700 10/21/19 11/06/19 Nystatin/Triamcin 1 applicate TOPICAL QID 10/21/19 11/06/19 [Nystatin-Triamcinolone Cream] Pantoprazole Sodium [Protonix] 40 mg PO BID@0800,1700 10/21/19 11/06/19 Propranolol [Inderal] 10 mg PO TID@0800,1200,1700 10/21/19 11/06/19 Saccharomyces Boulardii 250 mg PO DAILY@169910/21/1911/05/20 amLODIPine [Norvasc] 5 mg PO DAILY@0800 10/21/19 11/06/19 Beclomethasone Dip 80 Mcg/Puff 1 puff INHALATION RT-BID 11/06/19 11/06/19 [Qvar 80 mcg] Collagenase [Santyl] 1 applic TOPICAL DAILY 11/06/19 11/06/19 Furosemide [Lasix] 20 mg PO DAILY@1700 11/06/19 11/06/19 Furosemide [Lasix] 40 mg PO DAILY@0800 11/06/19 11/06/19 Midodrine [ProAmatine] 5 mg PO TID@0800,1200,1700 11/06/19 11/06/19 Previous Rx's Medication Instructions Recorded traMADol HCl [Ultram] 50 mg PO BID PRN #6 tab 10/01/19 Acetaminophen Tab [Tylenol] 650 mg PO Q4H PRN tab 11/09/19 Gabapentin [Neurontin] 200 mg PO BID@0800,2100 cap 11/09/19 Magnesium Hydroxide [Milk of 2,400 mg PO DAILY PRN ml 11/09/19 Magnesia Concentrate] Memantine [Namenda] 5 mg PO BID@0800,1700 tab 11/09/19 Nystatin 100,000Unit/gm Cream 1 applic TOPICAL QID applic 11/09/19 [Mycostatin Cream] Triamcinolone 0.1% Cream [Kenalog 1 applic TOPICAL QID applic 11/09/19 0.1% Cream] rOPINIRole HCL [Requip] 0.5 mg PO HS@2100 tab 11/09/19 Allergies Allergy/AdvReac Type Severity Reaction Status Date / Time No Known Allergies Allergy Verified 11/06/19 18:11 Review of Systems ROS Statement: Those systems with pertinent positive or pertinent negative responses have been documented in the HPI. ROS Other: All systems not noted in ROS Statement are negative. Constitutional: Denies: fever Eyes: Denies: eye pain ENT: Denies: ear pain Respiratory: Denies: cough Cardiovascular: Reports: as per HPI. Denies: chest pain Endocrine: Denies: fatigue Gastrointestinal: Denies: abdominal pain Genitourinary: Denies: dysuria Musculoskeletal: Denies: back pain Skin: Denies: rash Neurological: Reports: as per HPI. Denies: weakness Past Medical History Past Medical History: Atrial Fibrillation, Cancer, Heart Failure, COPD, CVA/TIA, GERD/Reflux, GI Bleed, Hyperlipidemia, Hypertension, Osteoarthritis (OA) Additional Past Medical History / Comment(s): hx. uterine cancer, chemo 6 years ago, TIA several yrs. ago-forgetful, neuropathy feet & legs & hands, ANEMIA History of Any Multi-Drug Resistant Organisms: None Reported Past Surgical History: Hysterectomy, Tonsillectomy Additional Past Surgical History / Comment(s): COLONOSCOPY. EGD. BILAT CATARACTS REMOVED Past Anesthesia/Blood Transfusion Reactions: No Reported Reaction Past Psychological History: Anxiety, Depression Smoking Status: Former smoker Past Alcohol Use History: None Reported Past Drug Use History: None Reported - Past Family History Mother Family Medical History: Cancer Father History Unknown: Yes Family Medical History: Cancer Brother(s) Family Medical History: Cancer General Exam Limitations: altered mental status General appearance: alert, in no apparent distress Head exam: Present: atraumatic, normocephalic Eye exam: Present: normal appearance, PERRL ENT exam: Present: normal oropharynx Neck exam: Present: normal inspection. Absent: tenderness, meningismus Respiratory exam: Present: rales Cardiovascular Exam: Present: regular rate, normal rhythm GI/Abdominal exam: Present: soft. Absent: distended, tenderness Extremities exam: Present: other (Moderate arm edema, mild leg edema) Neurological exam: Present: alert Expanded Neurological exam: Present: protecting the airway Patient oriented to: Present: person, place Speech: Present: fluid speech Motor strength exam: RUE: 4, LUE: 4, RLE: 4, LLE: 4 Eye Response: (4) open spontaneously Motor Response: (6) obeys commands (Slow to follow commands) Verbal Response: (4) confused conversation Psychiatric exam: Present: normal affect, normal mood Skin exam: Present: normal color Course Vital Signs 11/13/19 11/13/19 11/13/19 15:59 16:04 16:09 Temperature 98.3 F Pulse Rate 70 Respiratory 16 18 Rate Blood Pressure 135/114 135/114 O2 Sat by Pulse 84 L Oximetry 11/13/19 11/13/19 11/13/19 16:30 17:00 17:30 Temperature Pulse Rate 66 71 67 Respiratory 18 14 17 Rate Blood Pressure 135/114 141/88 O2 Sat by Pulse 90 L 91 L 95 Oximetry 11/13/19 11/13/19 18:00 18:30 Temperature Pulse Rate 71 70 Respiratory 15 18 Rate Blood Pressure 136/62 145/87 O2 Sat by Pulse Oximetry EKG Findings - EKG Comments: EKG Findings:: Normal sinus rhythm 70. ID 144. QRS 78. QT 402. QTC 434. Normal axis. Normal QRS. No acute ST change. Medical Decision Making - Medical Decision Making Patient reevaluated and updated. Case was discussed with Dr. Davila who is familiar with this patient and will admit with cardiology consult. - Lab Data Result diagrams: 11/13/19 16:34 11/13/19 16:34 Lab Results 11/13/19 11/13/19 11/13/19 Range/Units 16:34 16:34 16:34 WBC 9.9 (3.8-10.6) k/uL RBC 2.72 L (3.80-5.40) m/uL Hgb 8.7 L (11.4-16.0) gm/dL Hct 28.9 L (34.0-46.0) % MCV 106.3 H (80.0-100.0) fL MCH 32.1 (25.0-35.0) pg MCHC 30.2 L (31.0-37.0) g/dL RDW 19.7 H (11.5-15.5) % Plt Count 86 L (150-450) k/uL Neutrophils % (Manual) 92 % Lymphocytes % (Manual) 2 % Monocytes % (Manual) 2 % Eosinophils % (Manual) 4 % Neutrophils # (Manual) 9.11 H (1.3-7.7) k/uL Lymphocytes # (Manual) 0.20 L (1.0-4.8) k/uL Monocytes # (Manual) 0.20 (0-1.0) k/uL Eosinophils # (Manual) 0.40 (0-0.7) k/uL Nucleated RBCs 0 (0-0) /100 WBC Manual Slide Review Performed Hypochromasia Marked Anisocytosis Slight Macrocytosis Marked A Target Cells Present PT 12.6 H (9.0-12.0) sec INR 1.3 H (<1.2) APTT 32.5 H (22.0-30.0) sec Sodium 141 (137-145) mmol/L Potassium 4.3 (3.5-5.1) mmol/L Chloride 113 H (98-107) mmol/L Carbon Dioxide 23 (22-30) mmol/L Anion Gap 5 mmol/L BUN 69 H (7-17) mg/dL Creatinine 1.81 H (0.52-1.04) mg/dL Est GFR (CKD-EPI)AfAm 31 (>60 ml/min/1.73 sqM) Est GFR (CKD-EPI)NonAf 27 (>60 ml/min/1.73 sqM) Glucose 153 H (74-99) mg/dL Calcium 8.3 L (8.4-10.2) mg/dL Total Bilirubin 0.9 (0.2-1.3) mg/dL AST 38 H (14-36) U/L ALT 12 (4-34) U/L Alkaline Phosphatase 183 H (38-126) U/L Troponin I (0.000-0.034) ng/mL NT-Pro-B Natriuret Pep pg/mL Total Protein 7.7 (6.3-8.2) g/dL Albumin 2.2 L (3.5-5.0) g/dL 11/13/19 11/13/19 Range/Units 16:34 16:34 WBC (3.8-10.6) k/uL RBC (3.80-5.40) m/uL Hgb (11.4-16.0) gm/dL Hct (34.0-46.0) % MCV (80.0-100.0) fL MCH (25.0-35.0) pg MCHC (31.0-37.0) g/dL RDW (11.5-15.5) % Plt Count (150-450) k/uL Neutrophils % (Manual) % Lymphocytes % (Manual) % Monocytes % (Manual) % Eosinophils % (Manual) % Neutrophils # (Manual) (1.3-7.7) k/uL Lymphocytes # (Manual) (1.0-4.8) k/uL Monocytes # (Manual) (0-1.0) k/uL Eosinophils # (Manual) (0-0.7) k/uL Nucleated RBCs (0-0) /100 WBC Manual Slide Review Hypochromasia Anisocytosis Macrocytosis Target Cells PT (9.0-12.0) sec INR (<1.2) APTT (22.0-30.0) sec Sodium (137-145) mmol/L Potassium (3.5-5.1) mmol/L Chloride (98-107) mmol/L Carbon Dioxide (22-30) mmol/L Anion Gap mmol/L BUN (7-17) mg/dL Creatinine (0.52-1.04) mg/dL Est GFR (CKD-EPI)AfAm (>60 ml/min/1.73 sqM) Est GFR (CKD-EPI)NonAf (>60 ml/min/1.73 sqM) Glucose (74-99) mg/dL Calcium (8.4-10.2) mg/dL Total Bilirubin (0.2-1.3) mg/dL AST (14-36) U/L ALT (4-34) U/L Alkaline Phosphatase (38-126) U/L Troponin I <0.012 (0.000-0.034) ng/mL NT-Pro-B Natriuret Pep 7310 pg/mL Total Protein (6.3-8.2) g/dL Albumin (3.5-5.0) g/dL - Radiology Data Radiology results: report reviewed (Computed tomography scan the brain shows no acute intercranial abnormality. Redemonstrated old subcortical white matter infarct. Patchy burn of chronic small vessel ischemia.), image reviewed (Chest x-ray shows pulmonary edema) Disposition Clinical Impression: Congestive heart failure Disposition: ADMITTED IP TO THIS HOSP Is patient prescribed a controlled substance at d/c from ED?: No Referrals: Bebeto Davila MD [Primary Care Provider] - 1-2 days Decision Time: 19:27
[2019-11-13 16:54] LABS: Anisocytosis Slight; HCT 28.9 % (34.0-46.0); HGB 8.7 gm/dL (11.4-16.0); Hypochromasia Marked; MCH 32.1 pg (25.0-35.0); MCHC 30.2 g/dL (31.0-37.0); MCV 106.3 fL (80.0-100.0); Macrocytosis Marked; Mean Platelet Volume 11.9; RBC 2.72 m/uL (3.80-5.40); RDW 19.7 % (11.5-15.5); WBC 9.9 k/uL (3.8-10.6)
[2019-11-13 17:07] LABS: Albumin 2.2 g/dL (3.5-5.0); Calcium 8.3 mg/dL (8.4-10.2); Potassium 4.3 mmol/L (3.5-5.1); Total Bilirubin 0.9 mg/dL (0.2-1.3); Total Protein 7.7 g/dL (6.3-8.2)
[2019-11-13 17:14] LABS: INR 1.3 (<1.2); Partial Thromboplastin Time 32.5 sec (22.0-30.0); Prothrombin Time 12.6 sec (9.0-12.0)
--- NOTE | 2019-11-13 17:26 | CT ---
EXAMINATION TYPE: CT brain wo con DATE OF EXAM: 11/13/2019 COMPARISON: 10/21/2019 HISTORY: 74-year-old female confusion, Altered mental status. TECHNIQUE: Examination was done in axial plane without intravenous contrast. Coronal and sagittal r econstructions performed. CT DLP: 1211.4 mGycm Automated exposure control for dose reduction was used. FINDINGS: There is no evidence of acute intracranial hemorrhage, acute ischemic changes, mass, mass-effect, or extra-axial fluid collection. There is no effacement of cerebral sulci or basal subarachnoid cister ns. There is no hydrocephalus. There is no midline shift. Goldsmith-white matter distinction is preserv ed. ] Nasal septal deviation. Paranasal sinuses and mastoid air cells appear well-pneumatized. Mild cerebral cortical atrophy. Focal encephalomalacia in the subcortical region of the lateral right frontal lobe, unchanged from prior. No additional mild patchy white matter hypodensities are present such as in the left frontoparietal j unction. Prominent streak artifact along the posterior cranial fossa. Assess for calcifications of the carotid siphons. IMPRESSION: 1. No acute intracranial abnormality seen. 2. Redemonstrated old subcortical white matter infarct lateral right frontal lobe and mild patchy bur den of chronic small vessel ischemic disease.
--- NOTE | 2019-11-13 17:29 | XR ---
EXAMINATION TYPE: XR chest 2V DATE OF EXAM: 11/13/2019 COMPARISON: 10/23/2019 HISTORY: 74-year-old female altered mental status and confusion TECHNIQUE: AP and lateral views FINDINGS: Right anterior chest wall injection port with catheter tip in the upper right atrium. Heart is enlarg ed. Diffuse interstitial and mild patchy airspace opacities. Small effusions. IMPRESSION: Correlate for fluid overload state/CHF with interstitial pulmonary edema. Small effusions with adjace nt atelectasis and/or consolidation.
[2019-11-13 17:55] LABS: Neutrophils # (M) 9.11 k/uL (1.3-7.7); Neutrophils % (M) 92 %; Nucleated Red Blood Cells 0 /100 WBC (0-0); Total Cells Counted 100
[2019-11-13 17:56] LABS: Target Cells Present
[2019-11-13 17:57] LABS: Platelet Count 86 k/uL (150-450)
[2019-11-13] MEDS ORDERED: ASPIRIN 325 MG TAB PO STA (19:27)
[2019-11-13] MEDS: FUROSEMIDE 10 MG/ML 4 ML VIAL IV SCH (20:51)
[2019-11-13] MEDS ORDERED: EPOETIN ALFA IM PRN (22:23)
[2019-11-13] MEDS ORDERED: NA PHOS,M-B/NA PHOS,DI-BA 133 ML ENEMA RECTAL PRN (22:23)
[2019-11-13] MEDS ORDERED: TRIAMCINOLONE 0.1% CREAM 80 GM TUBE TOPICAL PRN (22:23)
[2019-11-13] MEDS ORDERED: bisacodyL 10 MG SUPP RECTAL PRN (22:23)
[2019-11-13] MEDS ORDERED: MAGNESIUM HYDROXIDE 2,400 MG/10 ML CUP PO PRN (22:23)
[2019-11-13] MEDS: NITROGLYCERIN OINT 1 INCH/GM PACKET TOPICAL SCH (23:13)
[2019-11-13] MEDS: DIPHENOX-ATROP 2.5-0.025 MG 1 EACH TAB PO SCH (23:13)
[2019-11-14] MEDS: FUROSEMIDE 10 MG/ML 4 ML VIAL IV SCH ×3 (04:36→20:53)
[2019-11-14] MEDS: DIPHENOX-ATROP 2.5-0.025 MG 1 EACH TAB PO SCH ×4 (04:36→23:36)
[2019-11-14 06:26] LABS: Appearance,Urine Clear (Clear); Bilirubin,Urine Negative (Negative); Blood,Urine Negative (Negative); Color,Urine Yellow; Glucose,Urine (UA) Negative (Negative); Ketones,Urine Negative (Negative); Protein,Urine Negative (Negative)
[2019-11-14 06:27] LABS: Leukocyte Esterase,Urine Negative (Negative); Nitrite,Urine Negative (Negative); Urobilinogen,Urine <2.0 mg/dL (<2.0)
[2019-11-14] MEDS: LEVOTHYROXINE 25 MCG TAB PO SCH (06:32)
[2019-11-14] MEDS ORDERED: NON FORMULARY DRUG (Liquacel 30 ML) PO SCH (08:00)
[2019-11-14] MEDS: PANTOPRAZOLE 40 MG TABLET PO SCH ×2 (08:16→16:39)
[2019-11-14] MEDS: GABAPENTIN 100 MG CAP PO SCH ×2 (08:16→20:53)
[2019-11-14] MEDS: ESCITALOPRAM 10 MG TAB PO SCH (08:16)
[2019-11-14] MEDS: PROPRANOLOL 10 MG TAB PO SCH ×3 (08:16→16:38)
[2019-11-14] MEDS: LORATADINE 10 MG TAB PO SCH (08:16)
[2019-11-14] MEDS: FERROUS SULFATE 325 MG TAB PO SCH ×2 (08:17→16:39)
[2019-11-14] MEDS: amLODIPine 5 MG TAB PO SCH (08:17)
[2019-11-14] MEDS: NITROGLYCERIN OINT 1 INCH/GM PACKET TOPICAL SCH (08:17)
[2019-11-14] MEDS: MEMANTINE 5 MG TAB PO SCH ×2 (08:17→16:39)
[2019-11-14] MEDS: MIDODRINE 5 MG TAB PO SCH ×3 (08:17→16:39)
[2019-11-14] MEDS: FLOVENT INHALATION SCH ×2 (08:45→21:40)
[2019-11-14] MEDS ORDERED: ASPIRIN 325 MG TAB PO SCH (09:00)
[2019-11-14] MEDS ORDERED: NON FORMULARY DRUG (Lactose-Reduced Food [Ensure Plus] 1 CAN) PO SCH (09:00)
[2019-11-14] MEDS: SODIUM FERRIC GLUCONAT-SUCROSE 125 MG in SODIUM CHLORIDE 0.9% 100 ML IVPB SCH (09:18)
--- NOTE | 2019-11-14 12:22 | CONS ---
CONSULTATION Mrs. Vale is a 74-year-old female who was just discharged from the hospital who was admitted with a questionable dyspnea. Patient lives in a halfway. She had some change in mentation. She was in the hospital recently for severe anemia. Asking the patient, she appears to be confused. She is not quite sure why she is here. She denies any dyspnea. She denies any chest pain. She denies any dizziness or palpitation. Initially she could not remember that she was in the hospital recently. She denies any prior history of cardiac disease. During her last admission, she had received transfusion. Patient had recurrent episode of anemia requiring admission. She has been evaluated by Dr. Monroe during her last admission and she has a history of chronic persistent anemia, history of alcoholic cirrhosis with varices. Of note, the patient denies any alcohol intake in the past. She has underwent banding of the varices multiple times. On presentation, she was noted to have some fluid overload on the chest x-ray. The patient has chronic peripheral edema according to her. She denies any dizziness or palpitation. She denies any dyspnea. She denies any clear PND or orthopnea. MEDICATION: At home included Norvasc 5 mg daily, propranolol 10 mg 3 times a day, midodrine, Namenda, levothyroxine, Lasix 40 in the morning and 20 in the afternoon, Donepezil. REVIEW OF SYSTEMS: Although limited by her mental status, she denies any recent change in her breathing. She denies any cough or fever. GI system: She has the GI bleeding as noted, although the patient denies it. She denies abdominal pain. system: No dysuria or hematuria. Nervous system: No history of seizure according to the patient. PHYSICAL EXAMINATION: 74-year-old female, alert, confused. Blood pressure 129/59 with a heart rate in the 60s. HEAD: Normocephalic. EYES: Sclerae anicteric. NECK: Good upstroke. No bruit. LUNGS with decreased air exchange. No wheezes. HEART: Regular rate and rhythm, S1, S2. No S3. No rub with a systolic murmur. ABDOMEN: Soft, nontender. Positive bowel sounds. No organomegaly. EXTREMITIES: 1+ edema bilaterally. LAB DATA: Revealed a hemoglobin of 8.7. Reviewing the old data, the patient had a hemoglobin down to 4.5 in August. Her white blood cell of 9.1, platelet count 86,000. BUN and creatinine 69, 1.81, which is somewhat similar to what she had when she was in the hospital recently. Her troponin less than 0.012. Her NT proBNP is 7310. In September, it was 2650. Her chest x-ray revealed mild congestion. Her EKG revealed a sinus mechanism, normal axis and intervals, nonspecific ST-T wave changes. IMPRESSION: 1. Symptoms of dyspnea according to the emergency room with finding of some fluid overload, probably related to the transfusion recently. There is no evidence of acute coronary syndrome. I have no evaluation of her prior systolic function. 2. History of chronic anemia with esophageal varices and bleeding. 3. History of alcoholic cirrhosis according to the records. 4. Chronic kidney disease. 5. History of hypertension. RECOMMENDATIONS: From the cardiac standpoint, patient is receiving IV diuretic. I will obtain echocardiogram. I will stop her aspirin because of her bleeding. I will stop her nitrate. We will follow her renal function closely and depending on that, further recommendations will be made. The patient is not a candidate for aggressive cardiac workup. Thank you for this consult. We will follow with you. MMODL / IJN: [id number] /
--- NOTE | 2019-11-14 15:21 | ECHOF ---
Referral Reason:chf MEASUREMENTS -------- HEIGHT: 165.1 cm WEIGHT: 79.4 kg BP: RVIDd: 2.4 cm (< 3.3) IVSd: 1.0 cm (0.6 - 1.1) LVIDd: 3.3 cm (3.9 - 5.3) LVPWd: 1.4 cm (0.6 - 1.1) IVSs: 1.4 cm LVIDs: 1.7 cm LVPWs: 1.7 cm Ao Diam: 2.7 cm (2.0 - 3.7) AV Cusp: 1.6 cm (1.5 - 2.6) LA Diam: 3.2 cm (2.7 - 3.8) MV EXCURSION: 17.007 mm (> 18.000) MV EF SLOPE: 43 mm/s (70 - 150) EPSS: 0.7 cm MV E Magnus: 0.87 m/s MV DecT: 232 ms MV A Magnus: 0.94 m/s MV E/A Ratio: 0.93 AR PHT: 1018 ms RAP: 5.00 mmHg RVSP: 14.63 mmHg FINDINGS -------- Sinus rhythm. This was a technically difficult study with suboptimal views. The left ventricular size is normal. There is mild concentric left ventricular hypertrophy. Overa ll left ventricular systolic function is normal with, an EF between 55 - 60 %. The right ventricle is normal in size. The left atrial size is normal. The right atrial size is normal. There is moderate aortic valve sclerosis. There is mild aortic regurgitation. Moderate mitral annular calcification present. Mild mitral regurgitation is present. The tricuspid valve appears structurally normal. Mild tricuspid regurgitation present. Right vent ricular systolic pressure is normal at < 35 mmHg. The pulmonic valve was not well visualized. There is no pulmonic regurgitation present. The aortic root size is normal. IVC Not well visulized. There is no pericardial effusion. CONCLUSIONS -------- 1. There is mild concentric left ventricular hypertrophy. 2. Overall left ventricular systolic function is normal with, an EF between 55 - 60 %. 3. The left atrial size is normal. 4. There is moderate aortic valve sclerosis. 5. There is mild aortic regurgitation. 6. Moderate mitral annular calcification present. 7. Mild mitral regurgitation is present. 8. Mild tricuspid regurgitation present. AUDITING MANAGER: Richa Brandt RDCS
[2019-11-14] MEDS ORDERED: NON FORMULARY DRUG (Vitamin B Complex [Vitamin B Complex] 1 CAP) PO SCH (17:00)
[2019-11-14] MEDS ORDERED: SACCHAROMYCES BOULARDII 250 MG PO SCH (17:00)
[2019-11-14] MEDS: DONEPEZIL 10 MG TAB PO SCH (20:53)
[2019-11-15] MEDS: FUROSEMIDE 10 MG/ML 4 ML VIAL IV SCH ×3 (03:22→21:59)
[2019-11-15] MEDS: DIPHENOX-ATROP 2.5-0.025 MG 1 EACH TAB PO SCH ×4 (03:24→21:56)
[2019-11-15] MEDS: LEVOTHYROXINE 25 MCG TAB PO SCH (06:21)
[2019-11-15 07:41] LABS: Albumin 2.1 g/dL (3.5-5.0); Potassium 3.9 mmol/L (3.5-5.1); Total Bilirubin 0.9 mg/dL (0.2-1.3); Total Protein 7.3 g/dL (6.3-8.2)
[2019-11-15 07:51] LABS: Anisocytosis Slight; HCT 27.3 % (34.0-46.0); HGB 8.2 gm/dL (11.4-16.0); Hypochromasia Marked; MCH 32.5 pg (25.0-35.0); MCHC 29.8 g/dL (31.0-37.0); Macrocytosis Marked; Mean Platelet Volume 12.2; RBC 2.51 m/uL (3.80-5.40); RDW 19.7 % (11.5-15.5); WBC 9.8 k/uL (3.8-10.6)
[2019-11-15 08:03] LABS: Platelet Count 71 k/uL (150-450)
[2019-11-15] MEDS: FLOVENT INHALATION SCH ×2 (08:26→21:14)
[2019-11-15 08:50] LABS: Eosinophils # (M) 0.29 k/uL (0-0.7); Lymphocytes # (M) 0.29 k/uL (1.0-4.8); Neutrophils # (M) 9.02 k/uL (1.3-7.7); Neutrophils % (M) 92 %; Nucleated Red Blood Cells 0 /100 WBC (0-0); Total Cells Counted 100
[2019-11-15] MEDS: LORATADINE 10 MG TAB PO SCH (09:27)
[2019-11-15] MEDS: MEMANTINE 5 MG TAB PO SCH ×3 (09:28→16:22)
[2019-11-15] MEDS: ESCITALOPRAM 10 MG TAB PO SCH (09:28)
[2019-11-15] MEDS: GABAPENTIN 100 MG CAP PO SCH ×2 (09:28→21:56)
[2019-11-15] MEDS: PANTOPRAZOLE 40 MG TABLET PO SCH ×3 (09:28→16:22)
[2019-11-15] MEDS: PROPRANOLOL 10 MG TAB PO SCH ×4 (09:28→16:23)
[2019-11-15] MEDS: amLODIPine 5 MG TAB PO SCH (09:28)
[2019-11-15] MEDS: MIDODRINE 5 MG TAB PO SCH ×5 (09:28→16:23)
[2019-11-15] MEDS: FERROUS SULFATE 325 MG TAB PO SCH ×3 (09:29→16:22)
[2019-11-15] MEDS: SODIUM FERRIC GLUCONAT-SUCROSE 125 MG in SODIUM CHLORIDE 0.9% 100 ML IVPB SCH (09:29)
--- NOTE | 2019-11-15 10:56 | PN ---
PROGRESS NOTE White female was admitted with congestive heart failure. Hemoglobin is 8.7 down to 8.2. Marked microcytosis. She had a sodium 143, potassium 3.9 today, BUN 74, and creatinine up to 2.13. Alkaline phosphatase 151. Ammonia level was 40, which is high. We will have to put her back on some lactulose for some confusion and monitor her and diurese her and get renal physician involved as well as Cardiology to try to diurese her. UA is negative for any infection. Please see further orders. MMODL / IJN: [id number] /
[2019-11-15] MEDS: LACTULOSE 20 GM/30 ML CUP PO SCH (11:11)
--- NOTE | 2019-11-15 11:43 | P.NPCON ---
History of Present Illness - Reason for Consult Consult date: 11/15/19 acute renal failure - Chief Complaint Shortness of breath - History of Present Illness Vital to get good history from the patient, noncommunicating most of the history is obtained from the chart. Recently discharged from the hospital coming with worsening shortness of breath. Baseline creatinine 1.5-1.8 MG per DL. Admitted with a creatinine of 2.1. No recent contrast studies or NSAID use. No documented hypotensive episodes. Currently on Lasix 40 mg IV 3 times a day. Review of Systems Constitutional: Reports as per HPI Past Medical History Past Medical History: Atrial Fibrillation, Cancer, Heart Failure, COPD, CVA/TIA, GERD/Reflux, GI Bleed, Hyperlipidemia, Hypertension, Osteoarthritis (OA) Additional Past Medical History / Comment(s): hx. uterine cancer, chemo 6 years ago, TIA several yrs. ago-forgetful, neuropathy feet & legs & hands, ANEMIA History of Any Multi-Drug Resistant Organisms: None Reported Past Surgical History: Hysterectomy, Tonsillectomy Additional Past Surgical History / Comment(s): COLONOSCOPY. EGD. BILAT CATARACTS REMOVED Past Anesthesia/Blood Transfusion Reactions: No Reported Reaction Past Psychological History: Anxiety, Depression Smoking Status: Former smoker Past Alcohol Use History: None Reported Additional Past Alcohol Use History / Comment(s): SMOKES 1PPD SINCE AGE 12, pt states she has not smoked in 9 weeks Past Drug Use History: None Reported - Past Family History Mother Family Medical History: Cancer Father History Unknown: Yes Family Medical History: Cancer Brother(s) Family Medical History: Cancer Medications and Allergies Home Medications Medication Instructions Recorded Confirmed Type Ferrous Sulfate [Feosol] 325 mg PO BID@0800,1700 10/29/16 11/13/19 History Donepezil [Aricept] 10 mg PO HS@2100 11/07/17 11/13/19 History Levothyroxine Sodium [Synthroid] 25 mcg PO DAILY@0600 11/07/17 11/13/19 History Cetirizine HCl [Zyrtec] 10 mg PO DAILY@0800 01/14/19 11/13/19 History Escitalopram [Lexapro] 10 mg PO DAILY@0800 01/14/19 11/13/19 History Vitamin B Complex 1 cap PO DAILY@1700 09/28/19 11/13/19 History traMADol HCl [Ultram] 50 mg PO BID PRN #6 tab 10/01/19 11/13/19 Rx Diphenoxylate HCl/Atropine 1 tab PO Q6H 10/21/19 11/13/19 History [Lomotil 2.5-0.025 mg Tablet] Liquacel 30 ml PO BID@0800,1700 10/21/19 11/13/19 History Pantoprazole Sodium [Protonix] 40 mg PO BID@0800,1700 10/21/19 11/13/19 History Propranolol [Inderal] 10 mg PO TID@0800,1200,1700 10/21/19 11/13/19 History Saccharomyces Boulardii 250 mg PO DAILY@169910/21/19 11/13/19 History amLODIPine [Norvasc] 5 mg PO DAILY@0800 10/21/19 11/13/19 History Beclomethasone Dip 80 Mcg/Puff 1 puff INHALATION RT-BID 11/06/19 11/13/19 History [Qvar 80 mcg] Collagenase [Santyl] 1 applic TOPICAL DAILY 11/06/19 11/13/19 History Furosemide [Lasix] 20 mg PO DAILY@1700 11/06/19 11/13/19 History Furosemide [Lasix] 40 mg PO DAILY@0600 11/06/19 11/06/19 History Midodrine [ProAmatine] 5 mg PO TID@0800,1200,1700 11/06/19 11/13/19 History Acetaminophen Tab [Tylenol] 650 mg PO Q4H PRN tab 11/09/19 11/13/19 Rx Gabapentin [Neurontin] 200 mg PO BID@0800,2100 cap 11/09/19 11/13/19 Rx Magnesium Hydroxide [Milk of 2,400 mg PO DAILY PRN ml 11/09/19 11/13/19 Rx Magnesia Concentrate] Memantine [Namenda] 5 mg PO BID@0800,1700 tab 11/09/19 11/13/19 Rx rOPINIRole HCL [Requip] 0.5 mg PO HS@2100 tab 11/09/19 11/13/19 Rx Epoetin Chilo [Epogen] 1,000 unit IM FR PRN 11/13/19 11/13/19 History Lactose-Reduced Food [Ensure Plus] 1 can PO TID 11/13/19 11/13/19 History Na Phos,M-B/Na Phos,Di-Ba [Fleet 133 ml RECTAL DAILY PRN 11/13/19 11/13/19 History Adult] Triamcinolone 0.1% Cream [Kenalog 1 applic TOPICAL QID PRN 11/13/19 11/13/19 History 0.1% Cream] bisacodyL [Dulcolax] 10 mg RECTAL DAILY PRN 11/13/19 11/13/19 History Allergies Allergy/AdvReac Type Severity Reaction Status Date / Time No Known Allergies Allergy Verified 11/06/19 18:11 Physical Exam Vitals: Vital Signs Temp Pulse Resp BP Pulse Ox 11/15/19 08:00 97.4 F L 55 L 18 111/48 97 11/15/19 04:00 97.4 F L 55 L 16 131/62 99 11/15/19 00:00 98.0 F 55 L 16 132/63 98 11/14/19 20:00 97.4 F L 83 16 101/57 95 11/14/19 16:00 55 L 16 100/40 11/14/19 12:00 58 L 16 104/45 11/14/19 11:59 16 Intake and Output 11/14/19 11/15/19 11/15/19 22:59 06:59 14:59 Intake Total 100 Output Total 600 600 Balance -500 -600 Intake: Oral 100 Output: Urine 600 600 Other: Voiding Method Indwelling Catheter Indwelling Catheter Indwelling Catheter # Voids 0 # Bowel Movements 1 Weight 80 kg No acute distress S1-S2 heard Decreased breath sounds Edema Results - Lab Results Most recent lab results Calcium 8.0 mg/dL (8.4-10.2) L 11/15/19 06:21 11/15/19 06:21 11/15/19 06:21 Assessment and Plan Assessment: #1 nonoliguric acute kidney injury suspect cardiorenal syndrome. -Urine analysis [place] #2 diastolic CHF #3 CKD3 with a baseline creatinine of 1.5-1.8 MG per DL. #4 hypertension with chronic kidney disease #5 anemia with chronic kidney disease #6 volume overload Plan: #1 continue with Lasix 40 mg IV 3 times a day. #2 avoid nephrotoxic agents and hypotensive episodes. #3 labs in the morning
--- NOTE | 2019-11-15 15:32 | P.PN ---
Subjective Progress Note Date: 11/15/19 This is a 74-year-old female patient who was recently discharged from the hospital. She resides in a retirement. She was in the hospital recently for severe anemia at which time she was given transfusions of red blood cell count. She's had some change in mentation. She does have a history of chronic persistent anemia, alcoholic cirrhosis with varices which she's had banding multiple times in the past. Presentation she was noted to have some fluid overload on chest x-ray. She apparently has chronic peripheral edema. Her NT proBNP was 7310. She was initiated on IV diuretics. She underwent ec hocardiogram which showed normal LV systolic function with no significant valvular abnormalities and no segmental wall motion abnormalities. Vital signs have been stable. The patient is currently nonverbal but will open her eyes with verbal and tactile stimuli. Labs this morning show hemoglobin 8.2, potassium 3.9, BUN 74 and creatinine 2.13. Nephrology has been consulted. Objective - Vital Signs Vital signs: Vital Signs Temp 98.0 F 11/15/19 12:00 Pulse 57 L 11/15/19 12:00 Resp 18 11/15/19 12:00 BP 122/47 11/15/19 12:00 Pulse Ox 98 11/15/19 12:00 Intake & Output 11/14/19 11/15/19 11/15/19 18:59 06:59 18:59 Intake Total 280 Output Total 600 1200 Balance -320 -1200 Weight 79.5 kg 80 kg Intake: Oral 280 Output: Urine 600 1200 Other: Voiding Method Indwelling Catheter Indwelling Catheter Indwelling Catheter # Voids 0 # Bowel Movements 1 - Exam PHYSICAL EXAMINATION: HEENT: Head is atraumatic, normocephalic. Pupils equal, round. Neck is supple. There is no elevated jugular venous pressure. HEART EXAMINATION: Heart sounds regular, S1 and S2 normal. No murmur or gallop heard. CHEST EXAMINATION: Lungs reveal decreased air exchange. No chest wall tenderness is noted on palpation or with deep breathing. ABDOMEN: Soft, nontender. Bowel sounds are heard. No organomegaly noted. EXTREMITIES: 2+ peripheral pulses with evidence of +1 peripheral edema and no calf tenderness noted. NEUROLOGIC patient is sleeping, arouses to verbal and tactile stimuli, nonverbal . - Labs CBC & Chem 7: 11/15/19 06:21 11/15/19 06:21 Labs: Abnormal Lab Results - Last 24 Hours (Table) 11/15/19 11/15/19 Range/Units 06:21 06:21 RBC 2.51 L (3.80-5.40) m/uL Hgb 8.2 L (11.4-16.0) gm/dL Hct 27.3 L (34.0-46.0) % MCV 109.0 H (80.0-100.0) fL MCHC 29.8 L (31.0-37.0) g/dL RDW 19.7 H (11.5-15.5) % Plt Count 71 L (150-450) k/uL Neutrophils # (Manual) 9.02 H (1.3-7.7) k/uL Lymphocytes # (Manual) 0.29 L (1.0-4.8) k/uL Macrocytosis Marked A Chloride 112 H (98-107) mmol/L BUN 74 H (7-17) mg/dL Creatinine 2.13 H (0.52-1.04) mg/dL Calcium 8.0 L (8.4-10.2) mg/dL Alkaline Phosphatase 151 H (38-126) U/L Albumin 2.1 L (3.5-5.0) g/dL Assessment and Plan Assessment: #1 symptoms of dyspnea according to the emergency room with findings of some fluid overload, probably related to transfusion recently. #2 acute on chronic diastolic heart failure with elevated BNP. #3 history of chronic anemia with esophageal varices and bleeding #4 history of alcoholic cirrhosis according to the records #5 chronic kidney disease #6 history of hypertension Plan: From cardiology's perspective we'll continue IV diuretics. Continue to follow renal function, electrolytes, daily weights and intake and output. The patient is not a candidate for aggressive cardiac workup at this time. We will continue to follow the patient and provide further recommendations accordingly. BOILER ENGINEER note has been reviewed, I agree with a documented findings and plan of care. Patient was seen and examined.
[2019-11-15] MEDS: COLLAGENASE 250 UNIT/GM OINTMENT 30 GM TUBE TOPICAL SCH ×2 (16:19→16:28)
[2019-11-15] MEDS: DONEPEZIL 10 MG TAB PO SCH (21:55)
[2019-11-16] MEDS: FUROSEMIDE 10 MG/ML 4 ML VIAL IV SCH ×3 (05:03→19:57)
[2019-11-16] MEDS: DIPHENOX-ATROP 2.5-0.025 MG 1 EACH TAB PO SCH ×4 (05:04→21:55)
[2019-11-16 05:47] LABS: Anisocytosis Slight; HCT 24.5 % (34.0-46.0); HGB 7.5 gm/dL (11.4-16.0); Hypochromasia Marked; MCH 33.4 pg (25.0-35.0); MCHC 30.7 g/dL (31.0-37.0); MCV 108.7 fL (80.0-100.0); Macrocytosis Marked; Mean Platelet Volume 11.2; Platelet Count 54 k/uL (150-450); RBC 2.26 m/uL (3.80-5.40); WBC 7.9 k/uL (3.8-10.6)
[2019-11-16 06:03] LABS: Albumin 1.9 g/dL (3.5-5.0); Potassium 3.8 mmol/L (3.5-5.1); Total Bilirubin 0.9 mg/dL (0.2-1.3); Total Protein 6.7 g/dL (6.3-8.2)
[2019-11-16 06:06] LABS: Basophils # (M) 0.08 k/uL (0-0.2); Eosinophils # (M) 0.08 k/uL (0-0.7); Lymphocytes # (M) 0.47 k/uL (1.0-4.8); Monocytes # (M) 0.16 k/uL (0-1.0); Neutrophils # (M) 7.11 k/uL (1.3-7.7); Neutrophils % (M) 90 %; Nucleated Red Blood Cells 0 /100 WBC (0-0); Target Cells Present; Total Cells Counted 100
[2019-11-16] MEDS: LEVOTHYROXINE 25 MCG TAB PO SCH (06:23)
[2019-11-16] MEDS: ESCITALOPRAM 10 MG TAB PO SCH (08:20)
[2019-11-16] MEDS: amLODIPine 5 MG TAB PO SCH (08:20)
[2019-11-16] MEDS: FERROUS SULFATE 325 MG TAB PO SCH ×2 (08:20→18:13)
[2019-11-16] MEDS: MIDODRINE 5 MG TAB PO SCH ×3 (08:21→18:13)
[2019-11-16] MEDS: GABAPENTIN 100 MG CAP PO SCH ×2 (08:21→21:55)
[2019-11-16] MEDS: LORATADINE 10 MG TAB PO SCH (08:21)
[2019-11-16] MEDS: MEMANTINE 5 MG TAB PO SCH ×2 (08:21→18:13)
[2019-11-16] MEDS: PROPRANOLOL 10 MG TAB PO SCH ×3 (08:22→18:10)
[2019-11-16] MEDS: PANTOPRAZOLE 40 MG TABLET PO SCH ×2 (08:22→18:13)
[2019-11-16] MEDS: LACTULOSE 20 GM/30 ML CUP PO SCH ×3 (08:22→21:55)
[2019-11-16] MEDS: COLLAGENASE 250 UNIT/GM OINTMENT 30 GM TUBE TOPICAL SCH (08:23)
[2019-11-16] MEDS: FLOVENT INHALATION SCH ×2 (09:33→19:51)
[2019-11-16] MEDS: SODIUM FERRIC GLUCONAT-SUCROSE 125 MG in SODIUM CHLORIDE 0.9% 100 ML IVPB SCH (13:05)
--- NOTE | 2019-11-16 14:32 | P.PN ---
Subjective Progress Note Date: 11/16/19 CHIEF COMPLAINT: CHF HISTORY OF PRESENT ILLNESS: Patient examined this morning at the bedside. She remains lethargic. She denies chest pain. Denies shortness of breath. She has an occasional cough during examination. She remains on IV lasix. Fluid balance over the last 24 hours is -2225cc. Her weight is down approximately 2.2 kg PHYSICAL EXAM: VITAL SIGNS: Reviewed. GENERAL: Well-developed in no acute distress. NECK: Supple. No JVD or thyromegaly LUNGS: Respirations even and unlabored. Lungs essentially clear to auscultation bilaterally. HEART: Regular rate and rhythm. S1 and S2 heard. EXTREMITIES: Normal range of motion. No clubbing or cyanosis. Peripheral pulses intact. No lower extremity edema ASSESSMENT: #1 symptoms of dyspnea according to the emergency room with findings of some fluid overload, probably related to transfusion recently. #2 acute on chronic diastolic heart failure with elevated BNP. #3 history of chronic anemia with esophageal varices and bleeding #4 history of alcoholic cirrhosis according to the records #5 chronic kidney disease #6 history of hypertension PLAN: -Continue IV lasix -Monitor renal function -Daily weights -Accurate intake and output Nurse practitioner note has been reviewed by physician. Signing provider agrees with the documented findings, assessment, and plan of care. Objective - Vital Signs Vital signs: Vital Signs Temp 97.6 F 11/16/19 04:51 Pulse 65 11/16/19 04:51 Resp 18 11/16/19 04:51 BP 121/58 11/16/19 04:51 Pulse Ox 97 11/16/19 04:51 Intake & Output 11/15/19 11/16/19 11/16/19 18:59 06:59 18:59 Intake Total 100 Output Total 600 1725 Balance -500 -1725 Weight 77.8 kg Intake: Oral 100 Output: Urine 600 1725 Other: Voiding Method Indwelling Catheter # Bowel Movements 1 - Labs CBC & Chem 7: 11/16/19 05:35 11/16/19 05:35 Labs: Abnormal Lab Results - Last 24 Hours (Table) 11/16/19 11/16/19 11/16/19 Range/Units 05:35 05:35 05:35 RBC 2.26 L (3.80-5.40) m/uL Hgb 7.5 L (11.4-16.0) gm/dL Hct 24.5 L (34.0-46.0) % MCV 108.7 H (80.0-100.0) fL MCHC 30.7 L (31.0-37.0) g/dL RDW 20.0 H (11.5-15.5) % Plt Count 54 L (150-450) k/uL Lymphocytes # (Manual) 0.47 L (1.0-4.8) k/uL Macrocytosis Marked A Chloride 113 H (98-107) mmol/L BUN 76 H (7-17) mg/dL Creatinine 2.06 H (0.52-1.04) mg/dL Calcium 8.0 L (8.4-10.2) mg/dL Ammonia 78 H (<30) umol/L Albumin 1.9 L (3.5-5.0) g/dL
--- NOTE | 2019-11-16 17:29 | PN ---
PROGRESS NOTE Patient is seen for followup for acute kidney injury. Her serum creatinine is staying at around 2 mg/dL for the last couple of days. She has been at 1.8 to 1.9 mg/dL before. Currently patient is being diuresed. She is maintained on Lasix 40 mg IV q.8 hours. Blood pressure has been on the lower side. She is maintained on midodrine. PHYSICAL EXAMINATION: On examination today, blood pressure was 108/44, heart rate 73 per minute. She is afebrile. EXAMINATION OF THE HEART: S1 and S2. EXAMINATION OF LUNGS: Decreased breath sounds at bases. ABDOMEN: Soft, non-tender. Examination of lower extremities shows edema 1+ bilaterally. MOTORCYCLE REPAIRER exam is grossly intact. LABS: Sodium of 144, potassium 3.8, chloride 113. CO2 is 25, BUN 76, creatinine 2.06, hemoglobin 7.5 g/dL. ASSESSMENT: 1. Acute kidney injury, mostly cardiorenal syndrome, currently maintained on IV Lasix, which I will continue. 2. Chronic kidney disease; baseline creatinine 1.5 to 1.9 mg/dL. 3. Hypertension with chronic kidney disease. 4. Volume overload. 5. Diastolic congestive heart failure. 6. Anemia of chronic disease. No active bleeding noted at this time. Check iron studies if not done recently. Iron saturation was 12% in September during her previous hospitalization. PLAN: Continue with IV Lasix. Repeat iron studies. Maintain patient on Aranesp for anemia. MMODL / IJN: [id number] /
--- NOTE | 2019-11-16 18:08 | PN ---
PROGRESS NOTE This patient is a white female who is more confused today than yesterday. Her hemoglobin has dropped from 8.2 to 7.5. She was 8.7 on admission. Possibly blood transfusion will be needed if her hemoglobin drops below 7. Her ammonia level has jumped up to 78 from 40 despite a dose of lactulose and large bowel movement this morning. She is more confused. Neurologically alert and oriented times zero. She does try to talk and give answers, but she is confused as to where she is. Her oxygen level is mid 90s on 2 L. Blood pressure 122/55, respiratory rate 16 to 18, pulse 69. CARDIOVASCULAR: S1, S2. LUNGS: Rales at the base. Wheezes at the base. HEMATOLOGY: Negative Homans. ASSESSMENT: 1. Possible gastroesophageal varices with gastrointestinal bleeding. 2. Liver failure, cirrhosis with hyperammonemia. Plan is to increase lactulose. 3. Hepatic encephalopathy. 4. Anemia due to chronic disease from renal disease, gastrointestinal bleeding, iron deficiency anemia due to esophageal varices. Continue with lactulose. Rehydrate. Transfuse if her hemoglobin is below 7. Wait to get a consult now with GI doctor and increase lactulose 25 mg to t.i.d. from daily due to elevated ammonia levels and increased confusion. Prognosis extremely guarded. MMODL / IJN: [id number] /
[2019-11-16] MEDS: DARBEPOETIN ALFA 60 MCG/0.3 ML SYRINGE SQ SCH (18:44)
[2019-11-16] MEDS: DONEPEZIL 10 MG TAB PO SCH (22:01)
[2019-11-17 00:05] LABS: Total Iron Binding Capacity 195 ug/dL (228-460)
[2019-11-17 00:15] LABS: % Iron Saturation 0.51 (12.00-45.00); Iron <2 ug/dL (50-170)
[2019-11-17] MEDS: FUROSEMIDE 10 MG/ML 4 ML VIAL IV SCH (04:26)
[2019-11-17] MEDS: DIPHENOX-ATROP 2.5-0.025 MG 1 EACH TAB PO SCH ×4 (04:26→21:35)
[2019-11-17] MEDS: LEVOTHYROXINE 25 MCG TAB PO SCH (06:30)
[2019-11-17 06:53] LABS: Anisocytosis Slight; HCT 27.8 % (34.0-46.0); HGB 8.1 gm/dL (11.4-16.0); Hypochromasia Marked; MCH 31.8 pg (25.0-35.0); MCHC 29.1 g/dL (31.0-37.0); MCV 109.2 fL (80.0-100.0); Macrocytosis Marked; Mean Platelet Volume 11.4; RBC 2.54 m/uL (3.80-5.40); WBC 9.2 k/uL (3.8-10.6)
[2019-11-17 07:00] LABS: Albumin 2.2 g/dL (3.5-5.0); Calcium 8.2 mg/dL (8.4-10.2); Total Protein 7.4 g/dL (6.3-8.2)
[2019-11-17 07:04] LABS: Platelet Count 94 k/uL (150-450)
[2019-11-17 07:28] LABS: Potassium 3.6 mmol/L (3.5-5.1)
[2019-11-17 08:18] LABS: Eosinophils # (M) 0.18 k/uL (0-0.7); Lymphocytes # (M) 0.37 k/uL (1.0-4.8); Monocytes # (M) 0.46 k/uL (0-1.0); Neutrophils # (M) 8.19 k/uL (1.3-7.7); Neutrophils % (M) 89 %; Nucleated Red Blood Cells 0 /100 WBC (0-0); Total Cells Counted 100
[2019-11-17 08:19] LABS: Anisocytosis (M) Present; Poikilocytosis (M) Present
[2019-11-17] MEDS: FLOVENT INHALATION SCH ×2 (09:21→20:40)
[2019-11-17] MEDS: LACTULOSE 20 GM/30 ML CUP PO SCH ×2 (10:19→17:44)
[2019-11-17] MEDS: GABAPENTIN 100 MG CAP PO SCH ×2 (10:19→21:35)
[2019-11-17] MEDS: ESCITALOPRAM 10 MG TAB PO SCH (10:19)
[2019-11-17] MEDS: LORATADINE 10 MG TAB PO SCH (10:20)
[2019-11-17] MEDS: FERROUS SULFATE 325 MG TAB PO SCH ×2 (10:20→17:26)
[2019-11-17] MEDS: PANTOPRAZOLE 40 MG TABLET PO SCH ×2 (10:20→17:26)
[2019-11-17] MEDS: MIDODRINE 5 MG TAB PO SCH ×2 (10:20→12:50)
[2019-11-17] MEDS: MEMANTINE 5 MG TAB PO SCH ×2 (10:20→17:26)
[2019-11-17] MEDS: amLODIPine 5 MG TAB PO SCH (10:20)
[2019-11-17] MEDS: PROPRANOLOL 10 MG TAB PO SCH ×3 (10:20→17:28)
[2019-11-17] MEDS: COLLAGENASE 250 UNIT/GM OINTMENT 30 GM TUBE TOPICAL SCH (10:21)
--- NOTE | 2019-11-17 11:01 | P.PN ---
Subjective Progress Note Date: 11/17/19 CHIEF COMPLAINT: CHF HISTORY OF PRESENT ILLNESS: Patient examined this morning at the bedside. She denies chest pain. Denies shortness of breath. She remains on IV lasix. Fluid balance over the last 24 hours is -1500cc. Her weight is down approximately 0.2 kg. blood pressure 130/54. Heart rate is in the 60s. PHYSICAL EXAM: VITAL SIGNS: Reviewed. GENERAL: Well-developed in no acute distress. NECK: Supple. No JVD or thyromegaly LUNGS: Respirations even and unlabored. Lungs essentially clear to auscultation bilaterally. HEART: Regular rate and rhythm. S1 and S2 heard. EXTREMITIES: Normal range of motion. No clubbing or cyanosis. Peripheral pulses intact. No lower extremity edema ASSESSMENT: #1 symptoms of dyspnea according to the emergency room with findings of some fluid overload, probably related to transfusion recently. #2 acute on chronic diastolic heart failure with elevated BNP. #3 history of chronic anemia with esophageal varices and bleeding #4 history of alcoholic cirrhosis according to the records #5 chronic kidney disease #6 history of hypertension PLAN: -Monitor renal function -Daily weights -Accurate intake and output -Discontinue IV Lasix. Begin oral Lasix 40 mg PO BID Nurse practitioner note has been reviewed by physician. Signing provider agrees with the documented findings, assessment, and plan of care. Objective - Vital Signs Vital signs: Vital Signs Temp 97.5 F L 11/17/19 08:30 Pulse 68 11/17/19 08:30 Resp 17 11/17/19 08:30 BP 130/54 11/17/19 08:30 Pulse Ox 94 L 11/17/19 08:30 Intake & Output 11/16/19 11/17/19 11/17/19 18:59 06:59 18:59 Intake Total 120 180 Output Total 1800 Balance 120 -1620 Weight 77.5 kg Intake: Oral 120 180 Output: Urine 1500 Uretheral (An) 1500 Stool 300 Other: Voiding Method Indwelling Catheter Indwelling Catheter # Voids 0 # Bowel Movements 1 - Labs CBC & Chem 7: 11/17/19 06:29 11/17/19 06:29 Labs: Abnormal Lab Results - Last 24 Hours (Table) 11/16/19 11/17/19 11/17/19 Range/Units 05:45 06:29 06:29 RBC 2.54 L (3.80-5.40) m/uL Hgb 8.1 L (11.4-16.0) gm/dL Hct 27.8 L (34.0-46.0) % MCV 109.2 H (80.0-100.0) fL MCHC 29.1 L (31.0-37.0) g/dL RDW 20.0 H (11.5-15.5) % Plt Count 94 L D (150-450) k/uL Neutrophils # (Manual) 8.19 H (1.3-7.7) k/uL Lymphocytes # (Manual) 0.37 L (1.0-4.8) k/uL Macrocytosis Marked A Sodium 146 H (137-145) mmol/L Chloride 114 H (98-107) mmol/L BUN 75 H (7-17) mg/dL Creatinine 2.10 H (0.52-1.04) mg/dL Glucose 114 H (74-99) mg/dL Calcium 8.2 L (8.4-10.2) mg/dL Iron <2 L (50-170) ug/dL TIBC 195 L (228-460) ug/dL % Saturation 0.51 L (12.00-45.00) AST 37 H (14-36) U/L Alkaline Phosphatase 139 H (38-126) U/L Albumin 2.2 L (3.5-5.0) g/dL
--- NOTE | 2019-11-17 15:41 | PN ---
PROGRESS NOTE Patient is seen for followup for acute kidney injury and chronic kidney disease. The patient is currently being diuresed for volume overload. Lasix has been changed to p.o. On examination today, blood pressure was 130/54, heart rate 68 per minute. She is afebrile. Examination of the heart S1, S2. Examination of the lungs, decreased breath sounds at bases. Abdomen is soft, nontender. Examination of lower extremities shows edema 1+ bilaterally. INSTITUTION DIRECTOR exam grossly intact. Labs show sodium of 146, potassium 3.3, chloride 114, BUN 75, creatinine 2.1, hemoglobin 8.1 g/dL ASSESSMENT: 1. Chronic kidney disease stage 3B to 4 baseline creatinine 1.5-1.9 secondary to nephrosclerosis with an element of acute kidney injury, mostly cardiorenal. Maintained on IV Lasix. It is switched to p.o. today. 2. Diastolic congestive heart failure acute on top of chronic. 3. Hypertension with chronic kidney disease. 4. Anemia of chronic disease. No active bleeding noted. Iron profile was ordered, which shows significantly low saturation. PLAN: Continue to diurese patient. Add IV iron. If blood pressure remains above 115 mm of Hg, we can discontinue the midodrine. MMODL / IJN: [id number] /
[2019-11-17] MEDS: FUROSEMIDE 40 MG TAB PO SCH (17:26)
--- NOTE | 2019-11-17 19:41 | PN ---
PROGRESS NOTE Hemoglobin is up to 8.1. Her ammonia level went from 70 down to less than 9. She had a large bowel movement yesterday. Her lactulose was increased. Possibly we will have to decrease back down on her lactulose. She still is confused and is not sure she is even in the hospital at this point. Continue on her Aricept, Lexapro, ferrous sulfate IV, Venofer. Lasix has been switched oral 40 b.i.d., which she normally takes at home. Lactose is on t.i.d. cut down to b.i.d. or maybe even down to daily at this point. Continue her on her Namenda. Continue to rehydrate her and feed her. ASSESSMENT: Confusion, delirium secondary to hepatic encephalopathy and dementia. Continue on current medications. Will follow up in the next 24-48 hours. Monitor hemoglobin and ammonia levels. Prognosis is guarded. Continue to see how she does with IV iron infusions and wait for GI recommendations. MMODL / IJN: [id number] /
[2019-11-17] MEDS: DONEPEZIL 10 MG TAB PO SCH (21:35)
--- NOTE | 2019-11-18 03:45 | CONS ---
CONSULTATION DATE OF DICTATION: 11/17/2019 REASON FOR CONSULTATION: Hepatic encephalopathy. HISTORY OF PRESENT ILLNESS: The patient is a 74-year-old pleasant white female, known to me from her multiple previous hospitalizations, history of alcoholic cirrhosis of the liver with portal hypertension and hepatic encephalopathy in the past, multiple hospitalizations in the last several months because of acute GI bleed. She was admitted to the hospital because of altered mental status, was subsequently noted to have elevated ammonia level consistent with hepatic encephalopathy. She was started on oral lactulose and her ammonia level is less than 9 and she is doing much better today. She became more alert and oriented. She reports no abdominal pain. Reports no rectal bleeding or melena. PAST MEDICAL HISTORY: Significant for alcoholic cirrhosis of the liver, history of ascites, hepatic encephalopathy in the past, history of recurrent GI bleed requiring multiple upper endoscopies as well as colonoscopies, heavy alcohol abuse in the past quit drinking for 3 years ago. MEDICATIONS: Medications at home include Protonix, Inderal, Norvasc, probiotics, Qvar, Santyl, Lasix, midodrine, iron sulfate, Synthroid, Aricept, Zyrtec, Lexapro, Imodium, vitamin B complex, and Lomotil. ALLERGIES: None. PAST SURGICAL HISTORY: Hysterectomy for uterine cancer, tonsillectomy, bilateral cataract surgeries, multiple EGDs, colonoscopies in the past. SOCIAL HISTORY: Former smoker. Alcohol use in the past. Quit drinking 3 years ago. REVIEW OF SYSTEMS: CARDIOPULMONARY: No chest pain or shortness of breath. GENITOURINARY: No dysuria or hematuria. MUSCULOSKELETAL: Unremarkable. SKIN: Unremarkable. ENDOCRINE: Unremarkable. PSYCHIATRIC: Unremarkable. NEUROLOGY: Mild dementia. ENT/VISION: Unremarkable. CONSTITUTIONAL: No recent weight loss. No fever, chills, night sweats. PHYSICAL EXAMINATION: She appears comfortable. No apparent distress. Vital signs are stable. Blood pressure is 128/64, pulse rate 65, temperature 97.6. HEENT EXAMINATION: Unremarkable. Conjunctivae pink. Sclerae anicteric. Oral cavity, no lesions. NECK: No JVD or lymph node enlargement. CHEST: Clear to auscultation. HEART: Regular rate and rhythm. ABDOMEN: Soft. Bowel sounds are positive. No organomegaly. EXTREMITIES: No pedal edema. SKIN: No rashes. NEUROLOGIC: Alert and oriented x3. No focal deficits. EXTREMITIES: No flapping tremor. LABS: Lab from yesterday: WBC 9.8, hemoglobin 8.2, platelets 71,000. BUN and creatinine are 74 and 2.13 respectively. AST and ALT 29 and 11, alkaline phosphatase 151. Ammonia level was 40. Today it is less than 9. Hemoglobin 8.1 today, WBC 9.2 and platelets 94,000. IMPRESSION: 1. Hepatic encephalopathy presently on oral lactulose 20 mL 3 times daily. She had 3 bowel movements today. Ammonia has improved. Mental status has significantly improved. 2. Alcoholic cirrhosis of the liver with gradual decompensation. 3. Recurrent gastrointestinal bleed in the past. Multiple EGDs and colonoscopies done in the last one year. Hemoglobin, however, remains stable and she has no active gastrointestinal bleed currently. 4. Acute kidney injury superimposed on chronic kidney disease. Nephrology following the patient closely. She remains on Lasix and Aldactone currently. 5. Diastolic congestive heart failure. RECOMMENDATION: 1. Continue oral lactulose and titrate so that she has 3 bowel movements daily. 2. Monitor ammonia level daily. 3. Continue current dose of diuretics as per Nephrology. 4. Low-salt diet. 5. Monitor CBC on a daily basis. 6. We will follow with you closely. Thank you for this consultation. MMODL / IJN: [id number] /
[2019-11-18] MEDS: LEVOTHYROXINE 25 MCG TAB PO SCH (05:17)
[2019-11-18] MEDS: DIPHENOX-ATROP 2.5-0.025 MG 1 EACH TAB PO SCH ×4 (05:17→23:49)
[2019-11-18 05:58] LABS: Anisocytosis Slight; HCT 27.4 % (34.0-46.0); HGB 8.2 gm/dL (11.4-16.0); Hypochromasia Marked; MCH 32.4 pg (25.0-35.0); MCHC 30.1 g/dL (31.0-37.0); MCV 107.8 fL (80.0-100.0); Macrocytosis Marked; Mean Platelet Volume 10.7; RBC 2.54 m/uL (3.80-5.40); RDW 19.2 % (11.5-15.5); WBC 9.3 k/uL (3.8-10.6)
[2019-11-18 05:59] LABS: Albumin 2.2 g/dL (3.5-5.0); Calcium 8.2 mg/dL (8.4-10.2); Potassium 3.4 mmol/L (3.5-5.1); Total Protein 7.4 g/dL (6.3-8.2)
[2019-11-18 06:31] LABS: Band Neutrophils % 2 %; Eosinophils # (M) 0.09 k/uL (0-0.7); Lymphocytes # (M) 0.47 k/uL (1.0-4.8); Monocytes # (M) 0.28 k/uL (0-1.0); Neutrophils % (M) 89 %; Nucleated Red Blood Cells 0 /100 WBC (0-0); Total Cells Counted 100
[2019-11-18 06:33] LABS: Target Cells Present
[2019-11-18 06:35] LABS: Poikilocytosis (M) Present
[2019-11-18 06:43] LABS: Platelet Count 90 k/uL (150-450)
[2019-11-18] MEDS: amLODIPine 5 MG TAB PO SCH (09:14)
[2019-11-18] MEDS: FLOVENT INHALATION SCH ×2 (09:19→19:57)
[2019-11-18] MEDS: PROPRANOLOL 10 MG TAB PO SCH ×3 (09:21→15:56)
[2019-11-18] MEDS: FERROUS SULFATE 325 MG TAB PO SCH ×2 (09:22→15:56)
[2019-11-18] MEDS: LACTULOSE 20 GM/30 ML CUP PO SCH (09:22)
[2019-11-18] MEDS: ESCITALOPRAM 10 MG TAB PO SCH (09:22)
[2019-11-18] MEDS: GABAPENTIN 100 MG CAP PO SCH ×2 (09:23→22:00)
[2019-11-18] MEDS: PANTOPRAZOLE 40 MG TABLET PO SCH ×2 (09:23→15:56)
[2019-11-18] MEDS: MEMANTINE 5 MG TAB PO SCH ×2 (09:23→15:56)
[2019-11-18] MEDS: LORATADINE 10 MG TAB PO SCH (09:23)
[2019-11-18] MEDS: FUROSEMIDE 40 MG TAB PO SCH ×2 (09:23→15:56)
[2019-11-18] MEDS: SODIUM FERRIC GLUCONAT-SUCROSE 125 MG in SODIUM CHLORIDE 0.9% 100 ML IVPB SCH (09:34)
[2019-11-18] MEDS: COLLAGENASE 250 UNIT/GM OINTMENT 30 GM TUBE TOPICAL SCH (10:53)
--- NOTE | 2019-11-18 14:14 | P.PN ---
Subjective Progress Note Date: 11/18/19 CHIEF COMPLAINT: CHF HISTORY OF PRESENT ILLNESS: Patient examined this morning at the bedside. She denies chest pain. Denies shortness of breath. Fluid balance over the last 24 hours is -475cc. Her weight is down approximately 0.5 kg. Blood pressure 102/47. Heart rate is in the 60s. Creatinine stable at 2.03 this morning. PHYSICAL EXAM: VITAL SIGNS: Reviewed. GENERAL: Well-developed in no acute distress. NECK: Supple. No JVD or thyromegaly LUNGS: Respirations even and unlabored. Lungs essentially clear to auscultation bilaterally. HEART: Regular rate and rhythm. S1 and S2 heard. EXTREMITIES: Normal range of motion. No clubbing or cyanosis. Peripheral pulses intact. No lower extremity edema ASSESSMENT: #1 symptoms of dyspnea according to the emergency room with findings of some fluid overload, probably related to transfusion recently. #2 acute on chronic diastolic heart failure with elevated BNP. #3 history of chronic anemia with esophageal varices and bleeding #4 history of alcoholic cirrhosis according to the records #5 chronic kidney disease #6 history of hypertension PLAN: -Monitor renal function -Daily weights -Accurate intake and output -Continue oral lasix 40mg PO BID -Replace potassium Nurse practitioner note has been reviewed by physician. Signing provider agrees with the documented findings, assessment, and plan of care. Objective - Vital Signs Vital signs: Vital Signs Temp 98.0 F 11/18/19 08:00 Pulse 60 11/18/19 08:00 Resp 17 11/18/19 08:00 BP 102/47 11/18/19 08:00 Pulse Ox 99 11/18/19 08:00 Intake & Output 11/17/19 11/18/19 11/18/19 18:59 06:59 18:59 Output Total 475 Balance -475 Weight 77 kg Output: Urine 475 Other: Voiding Method Indwelling Catheter Indwelling Catheter Indwelling Catheter - Labs CBC & Chem 7: 11/18/19 05:23 11/18/19 05:23 Labs: Abnormal Lab Results - Last 24 Hours (Table) 11/18/19 11/18/19 Range/Units 05:23 05:23 RBC 2.54 L (3.80-5.40) m/uL Hgb 8.2 L (11.4-16.0) gm/dL Hct 27.4 L (34.0-46.0) % MCV 107.8 H (80.0-100.0) fL MCHC 30.1 L (31.0-37.0) g/dL RDW 19.2 H (11.5-15.5) % Plt Count 90 L (150-450) k/uL Neutrophils # (Manual) 8.40 H (1.3-7.7) k/uL Lymphocytes # (Manual) 0.47 L (1.0-4.8) k/uL Macrocytosis Marked A Potassium 3.4 L (3.5-5.1) mmol/L Chloride 110 H (98-107) mmol/L BUN 72 H (7-17) mg/dL Creatinine 2.03 H (0.52-1.04) mg/dL Glucose 103 H (74-99) mg/dL Calcium 8.2 L (8.4-10.2) mg/dL AST 41 H (14-36) U/L Alkaline Phosphatase 142 H (38-126) U/L Albumin 2.2 L (3.5-5.0) g/dL
[2019-11-18] MEDS: POTASSIUM CHLORIDE ER 20 MEQ TAB.ER PO SCH ×2 (15:56→17:37)
--- NOTE | 2019-11-18 16:04 | PN ---
PROGRESS NOTE Patient is seen for followup for acute kidney injury on top of chronic kidney disease. She is currently being diuresed for CHF. Renal function remains stable, with creatinine staying at about 2.0 to 2.1 mg/dL. Baseline creatinine appears to be about 1.8. Patient denies any chest pains or shortness of breath. Her Lasix is currently 40 mg p.o. b.i.d. Patient is receiving IV iron for iron deficiency. PHYSICAL EXAMINATION: On examination today, blood pressure 102/47, heart rate 60 per minute. She is afebrile. EXAMINATION OF THE HEART: S1 and S2. EXAMINATION OF LUNGS: Bilateral breath sounds are heard. ABDOMEN: Soft, non-tender. Examination of lower extremities shows 1+ edema bilaterally. PAYROLL BOOKKEEPER exam is grossly intact. LABS: Labs show sodium of 141, potassium 3.4, chloride 110. CO2 is 26, BUN 72, creatinine 2.03, hemoglobin 8.2 g/dL. ASSESSMENT: 1. Chronic kidney disease, NKF stage 3B to 4. Baseline creatinine 1.5 to 1.9. Renal function close to baseline with an element of acute kidney injury, mostly cardiorenal. Renal function is stable. Lasix has been switched to p.o. 2. Diastolic congestive heart failure, acute on top of chronic, currently improved. 3. Anemia of chronic disease with evidence of significant iron deficiency, status post IV iron. 4. Hypertension with chronic kidney disease. 5. Hypotension. Patient was started on midodrine, which has now been discontinued, as blood pressure is not low anymore. PLAN: Continue with oral Lasix. Maintain salt and fluid restriction. Continue with the Norvas. Repeat labs in a.m. The patient will be started on lactulose for hepatic encephalopathy. We need to monitor the electrolytes. MMODL / IJN: [id number] /
--- NOTE | 2019-11-18 20:52 | PN ---
PROGRESS NOTE Hemoglobin is 8.2 today. White count is 9.3. We cut her lactulose down to titrate to 3 bowel movements a day. Sodium is 141, potassium 3.4. BUN is 72, creatinine 2.03. Ammonia level 27. She is more alert today. She is complaining of a lot of third- spacing of fluid in her abdomen. She is talking to her son. Her son is here. Discussed case with her son. CARDIOVASCULAR: S1, S2. LUNGS: Clear. GI: Soft. HEMATOLOGY: As mentioned above. ASSESSMENT: 1. Liver cirrhosis. 2. Fluid overload. 3. Diastolic heart failure. 4. Chronic anemia. 5. Esophageal varices bleeding. 6. Alcoholic cirrhosis. 7. Chronic kidney disease. 8. Hypertension. 9. Severe anemia. Continue Venofer, Lasix 40 b.i.d. Replace potassium. Prognosis guarded. Continue lactulose 25 daily at this point. Please see further orders. MMODL / IJN: [id number] /
[2019-11-18] MEDS: DONEPEZIL 10 MG TAB PO SCH (22:00)
[2019-11-18] MEDS: traMADol 50 MG TAB PO PRN (23:49)
--- NOTE | 2019-11-18 23:58 | PN ---
PROGRESS NOTE DATE OF DICTATION: 11/18/2019 Patient is a 74-year-old pleasant white female admitted to hospital with altered mental status. She is doing much better, more awake and alert. On a regular diet, tolerating well. PHYSICAL EXAMINATION: Appears comfortable, no apparent distress. Vital signs are stable. Blood pressure is 126/62, pulse rate 66, temperature 98.3. HEENT EXAMINATION: Unremarkable. Conjunctivae pink. Sclerae anicteric. Oral cavity, no lesions. NECK: No JVD or lymph node enlargement. CHEST: Clear to auscultation. HEART: Regular rate and rhythm. ABDOMEN: Soft. Bowel sounds are positive. No organomegaly. EXTREMITIES: No pedal edema. NEURO: Alert and oriented x3. No focal deficits. LABS: Labs from today WBC 9.3, hemoglobin 8.2, platelets 90,000. BUN and creatinine are 72 and 2.03. ALT and AST 12 and 41 respectively. T bilirubin 1 and alkaline phosphatase 142. Repeat ammonia level today was 64. IMPRESSION: 1. Hepatic encephalopathy with improving ammonia level today is slightly elevated to 64. However, patient is awake and oriented and no confusion. She remains on lactulose 20 grams 3 times daily. 2. History of alcoholic cirrhosis of the liver with gradual decompensation. 3. Anemia but no active gastrointestinal bleed. 4. Longstanding history of diabetes mellitus and hypertension. 5. History of hypothyroidism. RECOMMENDATIONS: 1. Increase lactulose 20 grams 3 times daily and titrate so that she has 3 bowel movements daily. 2. Avoid antimotility agents. 3. Monitor ammonia level on a daily basis. 4. Monitor CBC. 5. We will follow with you closely. Thank you for this consultation. MMODL / IJN: [id number] /
[2019-11-19 06:31] LABS: Calcium 7.7 mg/dL (8.4-10.2); Potassium 3.7 mmol/L (3.5-5.1); Total Bilirubin 0.9 mg/dL (0.2-1.3); Total Protein 6.8 g/dL (6.3-8.2)
[2019-11-19] MEDS: LEVOTHYROXINE 25 MCG TAB PO SCH (06:36)
[2019-11-19] MEDS: DIPHENOX-ATROP 2.5-0.025 MG 1 EACH TAB PO SCH ×4 (06:36→21:50)
[2019-11-19 07:05] LABS: Anisocytosis Slight; HCT 25.7 % (34.0-46.0); HGB 7.8 gm/dL (11.4-16.0); Hypochromasia Marked; MCH 32.2 pg (25.0-35.0); MCHC 30.3 g/dL (31.0-37.0); MCV 106.4 fL (80.0-100.0); Macrocytosis Marked; RBC 2.41 m/uL (3.80-5.40); RDW 19.3 % (11.5-15.5); WBC 7.7 k/uL (3.8-10.6)
[2019-11-19 07:10] LABS: Platelet Count 68 k/uL (150-450)
[2019-11-19 08:33] LABS: Basophils # (M) 0.08 k/uL (0-0.2); Eosinophils # (M) 0.23 k/uL (0-0.7); Lymphocytes # (M) 0.46 k/uL (1.0-4.8); Monocytes # (M) 0.15 k/uL (0-1.0); Neutrophils # (M) 6.78 k/uL (1.3-7.7); Neutrophils % (M) 88 %; Nucleated Red Blood Cells 0 /100 WBC (0-0); Total Cells Counted 100
[2019-11-19 08:34] LABS: Large Platelets Present; Poikilocytosis (M) Present
[2019-11-19] MEDS: amLODIPine 5 MG TAB PO SCH (09:12)
[2019-11-19] MEDS: PROPRANOLOL 10 MG TAB PO SCH ×3 (09:13→18:11)
[2019-11-19] MEDS: COLLAGENASE 250 UNIT/GM OINTMENT 30 GM TUBE TOPICAL SCH (09:13)
[2019-11-19] MEDS: LACTULOSE 20 GM/30 ML CUP PO SCH ×2 (09:22→21:49)
[2019-11-19] MEDS: FUROSEMIDE 40 MG TAB PO SCH ×2 (09:22→18:12)
[2019-11-19] MEDS: PANTOPRAZOLE 40 MG TABLET PO SCH ×2 (09:23→18:12)
[2019-11-19] MEDS: LORATADINE 10 MG TAB PO SCH (09:23)
[2019-11-19] MEDS: ESCITALOPRAM 10 MG TAB PO SCH (09:23)
[2019-11-19] MEDS: GABAPENTIN 100 MG CAP PO SCH ×2 (09:23→21:49)
[2019-11-19] MEDS: MEMANTINE 5 MG TAB PO SCH ×2 (09:23→18:12)
[2019-11-19] MEDS: FERROUS SULFATE 325 MG TAB PO SCH ×2 (09:23→18:12)
[2019-11-19] MEDS: SODIUM FERRIC GLUCONAT-SUCROSE 125 MG in SODIUM CHLORIDE 0.9% 100 ML IVPB SCH (09:24)
[2019-11-19] MEDS: FLOVENT INHALATION SCH ×2 (09:40→19:52)
--- NOTE | 2019-11-19 16:43 | PN ---
PROGRESS NOTE Patient is seen for followup for acute kidney injury on top of chronic kidney disease. Her renal function is actually fairly stable. Renal function is stable as well, with creatinine staying 1.9 to 2 mg/dL. Patient has been diuresed. Her diuretics are now changed to p.o. She is receiving IV iron for significant iron deficiency and anemia. PHYSICAL EXAMINATION: On examination today, patient is comfortable. Blood pressure is 113/51, heart rate 60 per minute. She is afebrile. EXAMINATION OF THE HEART: S1 and S2. EXAMINATION OF LUNGS: Bilateral breath sounds are heard. ABDOMEN: Soft, non-tender. Examination of lower extremities shows edema 1+ bilaterally. RECORDS SPECIALIST exam is grossly intact. LABS: Labs show sodium of 140, potassium 3.7, chloride 109, BUN 69, serum creatinine 1.9, hemoglobin 7.8 g/dL. ASSESSMENT: 1. Chronic kidney disease secondary to nephrosclerosis, NKF stage 3B to 4. Baseline creatinine 1.5 to 1.9. 2. Diastolic congestive heart failure, acute on top of chronic, currently improved. 3. Anemia of chronic disease with evidence of iron deficiency, maintained on IV iron. 4. Hypertension with chronic kidney disease. 5. Hypotension. The patient was on midodrine, which is now discontinued, as blood pressure is better. 6. Thrombocytopenia and anemia. 7. Hypokalemia, status post replacement. PLAN: Continue current dose of diuretics. One more dose of IV iron. Continue with the Aranesp. MMODL / IJN: [id number] /
--- NOTE | 2019-11-19 18:50 | PN ---
PROGRESS NOTE This is a 74-year-old white female who was admitted with altered mental status. Doing much better. More alert. Tolerating her diet. Blood pressure is 150s over 60s, pulse 60s, temperature 98. HEENT: Normocephalic, atraumatic. LUNGS: Clear. HEART: Regular rate and rhythm. ABDOMEN: Soft. EXTREMITIES: Generalized edema. NEUROLOGIC: Alert, oriented x3. White count 9.3, hemoglobin 8.2. BUN 72, creatinine 2.03, total bilirubin 1. Ammonia level 64. Hepatic encephalopathy, improving. She is on lactulose 20 mg t.i.d. Alcoholic cirrhosis of the liver, decompensated. Anemia, acute on chronic. History diabetes mellitus, hypertension, hypothyroidism. Increase her lactulose until she has 3 bowel movements daily. Check ammonia daily. Monitor CBC. Prognosis extremely guarded. MMKRISHANL / RUTHN: [id number] /
--- NOTE | 2019-11-19 19:39 | PN ---
PROGRESS NOTE DATE OF SERVICE: 11/19/2019 HISTORY OF PRESENT ILLNESS: Patient is a 74-year-old pleasant white female admitted to the hospital with hepatic encephalopathy, history of alcoholic cirrhosis of the liver. Her ammonia level was slightly increased yesterday, so her lactulose dose was increased. The ammonia level is down to 46. She has an FMS in place and there was significant amount of liquid stool noted. She denies any symptoms. PHYSICAL EXAMINATION: Appears comfortable. VITAL SIGNS: Stable. Blood pressure 113/51, pulse is 60, temperature 98.4. HEENT: Examination unremarkable. Conjunctivae are pink. Sclerae anicteric. Oral cavity no lesions. NECK: No JVD or lymph node enlargement. CHEST: Clear to auscultation. HEART: Regular rate and rhythm. ABDOMEN: Soft. Bowel sounds are positive. FMS in place. EXTREMITIES: No pedal edema. NEUROLOGIC: Alert and oriented x3. No focal deficits. LABS: WBC 7.7, hemoglobin 7.8, platelets 68,000. Rest of the labs are within normal limits. BUN 69, creatinine 1.99. Ammonia level 38. IMPRESSION: 1. Hepatic encephalopathy, resolving. Patient more awake and alert today. Remains on lactulose 20 g twice daily. 2. Acute kidney injury. 3. Anemia but clinically no evidence of active gastrointestinal bleed. 4. History of alcoholic cirrhosis of the liver. RECOMMENDATIONS: 1. Continue lactulose but titrated it so that she has about 2 or 3 bowel movements daily. 2. Monitor ammonia level daily. 3. Monitor CBC. 4. Repeat labs in the morning and will follow with you closely. MMODL / IJN: [id number] /
[2019-11-19] MEDS: DONEPEZIL 10 MG TAB PO SCH (21:49)
[2019-11-19] MEDS: traMADol 50 MG TAB PO PRN (21:49)
[2019-11-20] MEDS: DIPHENOX-ATROP 2.5-0.025 MG 1 EACH TAB PO SCH ×4 (05:31→21:32)
[2019-11-20] MEDS: LEVOTHYROXINE 25 MCG TAB PO SCH (05:31)
[2019-11-20 07:44] LABS: Albumin 2.2 g/dL (3.5-5.0); Calcium 7.9 mg/dL (8.4-10.2); Magnesium 1.5 mg/dL (1.6-2.3); Potassium 3.9 mmol/L (3.5-5.1); Total Protein 7.2 g/dL (6.3-8.2)
[2019-11-20 08:00] LABS: Anisocytosis Slight; HCT 26.4 % (34.0-46.0); Hypochromasia Marked; MCH 32.5 pg (25.0-35.0); MCHC 30.4 g/dL (31.0-37.0); MCV 106.9 fL (80.0-100.0); Macrocytosis Marked; Mean Platelet Volume 11.2; Platelet Count 72 k/uL (150-450); RBC 2.47 m/uL (3.80-5.40); RDW 19.1 % (11.5-15.5); WBC 8.4 k/uL (3.8-10.6)
[2019-11-20] MEDS: FLOVENT INHALATION SCH ×2 (09:01→20:36)
[2019-11-20] MEDS: LACTULOSE 20 GM/30 ML CUP PO SCH ×2 (09:48→21:33)
[2019-11-20] MEDS: SODIUM FERRIC GLUCONAT-SUCROSE 125 MG in SODIUM CHLORIDE 0.9% 100 ML IVPB SCH (09:48)
[2019-11-20] MEDS: FERROUS SULFATE 325 MG TAB PO SCH ×2 (09:49→18:36)
[2019-11-20] MEDS: PANTOPRAZOLE 40 MG TABLET PO SCH ×2 (09:49→18:37)
[2019-11-20] MEDS: GABAPENTIN 100 MG CAP PO SCH ×2 (09:49→21:25)
[2019-11-20] MEDS: FUROSEMIDE 40 MG TAB PO SCH ×2 (09:49→18:35)
[2019-11-20] MEDS: LORATADINE 10 MG TAB PO SCH (09:49)
[2019-11-20] MEDS: ESCITALOPRAM 10 MG TAB PO SCH (09:49)
[2019-11-20] MEDS: PROPRANOLOL 10 MG TAB PO SCH ×4 (09:50→18:37)
[2019-11-20] MEDS: amLODIPine 5 MG TAB PO SCH (09:50)
[2019-11-20] MEDS: MEMANTINE 5 MG TAB PO SCH ×2 (09:50→18:36)
[2019-11-20] MEDS: COLLAGENASE 250 UNIT/GM OINTMENT 30 GM TUBE TOPICAL SCH (09:53)
[2019-11-20 11:16] LABS: Eosinophils # (M) 0.08 k/uL (0-0.7); Lymphocytes # (M) 0.08 k/uL (1.0-4.8); Monocytes # (M) 0.17 k/uL (0-1.0); Neutrophils # (M) 8.06 k/uL (1.3-7.7); Neutrophils % (M) 96 %; Nucleated Red Blood Cells 0 /100 WBC (0-0); Total Cells Counted 100
[2019-11-20 11:17] LABS: Poikilocytosis (M) Present
[2019-11-20] MEDS ORDERED: FUROSEMIDE 10 MG/ML 2 ML VIAL IV ONE (13:47)
[2019-11-20 14:01] LABS: Albumin 2.2 g/dL (3.5-5.0); Calcium 8.1 mg/dL (8.4-10.2); Potassium 3.8 mmol/L (3.5-5.1); Total Bilirubin 0.7 mg/dL (0.2-1.3); Total Protein 7.3 g/dL (6.3-8.2)
--- NOTE | 2019-11-20 14:30 | PN ---
PROGRESS NOTE 74-year-old white female whose ammonia level has climbed over 90-106. Sodium is 142, potassium 3.9. She is having increased confusion due to hepatic encephalopathy. Lactose is ordered 20 g b.i.d. We will wait for further recommendations from GI. She has third-spacing of fluid. Cardiology put her on Lasix 40 b.i.d. Cardiovascular S1-S2. Lungs clear. GI is distended, obesity. Hematology: Third- spacing of fluid. ASSESSMENT: 1. Hepatic encephalopathy. 2. Cirrhosis of the liver. 3. Chronic obstructive pulmonary disease. 4. Diastolic congestive heart failure. 5. Elevated ammonia levels. 6. Dementia. Prognosis guarded. We will have to possibly increase her lactulose. Await for recommendations from her GI physician. Prognosis extremely guarded as her ammonia levels continues to be variable and climbing at this time. MMODL / IJN: [id number] /
--- NOTE | 2019-11-20 16:52 | PN ---
PROGRESS NOTE Patient is seen for followup for chronic kidney disease. She is currently being diuresed for CHF exacerbation. The patient is resting comfortably in bed. She denies any significant complaints. PHYSICAL EXAMINATION: Blood pressure was 114/55, heart rate 59 per minute. Patient is afebrile. EXAMINATION OF THE HEART: S1 and S2. EXAMINATION OF LUNGS: Decreased breath sounds at bases. ABDOMEN: Soft, non-tender. Examination of lower extremities shows edema 2+ bilaterally. SIEBEL ARCHITECT exam is grossly intact. LABS: Labs show hemoglobin 8.0, sodium 140, potassium 3.9, chloride 108, BUN 66, serum creatinine 2.09. ASSESSMENT: 1. Chronic kidney disease secondary to nephrosclerosis, stage 3B to 4. Baseline creatinine 1.5 to 1.9. 2. Diastolic congestive heart failure, acute on top of chronic, currently improved. 3. Anemia of chronic disease with evidence of iron deficiency. Currently maintained on IV iron. 4. Hypertension with chronic kidney disease. 5. Thrombocytopenia and anemia. 6. Hypokalemia, status post replacement. Etiology is diuresis. PLAN: Continue with p.o. Lasix. Discontinue IV iron. Encourage increased oral intake. MMODL / IJN: [id number] /
[2019-11-20] MEDS: MAGNESIUM SULFATE-D5W PMX 1 GM in DEXTROSE/WATER 1 100ML.BAG IVPB SCH ×2 (17:18→18:30)
--- NOTE | 2019-11-20 18:49 | PN ---
PROGRESS NOTE DATE OF DICTATION: 11/20/2019 This patient is a 74-year-old pleasant white female with a history of alcoholic cirrhosis of the liver, admitted to the hospital with hepatic encephalopathy. She was started on oral lactulose and she did well; however, this morning she became more sleepy and confused. She had labs done. Ammonia level went up to 100. She remains on oral lactulose and has an FMS in place and had several bowel movements, loose PHYSICAL EXAMINATION: HEENT examination unremarkable. Conjunctivae pink. Sclerae anicteric. Oral cavity no lesions. NECK: No JVD or lymph node enlargement. CHEST: Clear to auscultation. HEART: Regular rate and rhythm. ABDOMEN: Soft. Bowel sounds are positive. No organomegaly. EXTREMITIES: No pedal edema. NEUROLOGIC: She is awake and responding to name but not to place and time. LABS: Labs from today WBC 8.4, hemoglobin 8, platelets 72,000. Ammonia level is 106. AST and ALT are 47 and 15, respectively. Alkaline phosphatase 149. BUN 66, creatinine 2.09. IMPRESSION: 1. Hepatic encephalopathy with worsening ammonia level, presently on oral lactulose, having several bowel movements daily. 2. Alcoholic cirrhosis of the liver. 3. Acute kidney injury superimposed on chronic kidney disease. 4. Anemia. No active GI bleed. RECOMMENDATIONS: 1. Continue oral lactulose 20 grams 3 times daily. 2. Will add Xifaxan 550 mg twice daily. 3. Monitor ammonia level on a daily basis. 4. Will follow with you closely. Thank you for this consultation. MMODL / IJN: [id number] /
[2019-11-20] MEDS: DONEPEZIL 10 MG TAB PO SCH (21:31)
[2019-11-20] MEDS: RIFAXIMIN 550 MG TABLET PO SCH (21:32)
[2019-11-21] MEDS: DIPHENOX-ATROP 2.5-0.025 MG 1 EACH TAB PO SCH ×4 (04:14→21:20)
[2019-11-21 05:36] LABS: Anisocytosis Slight; HCT 26.2 % (34.0-46.0); Hypochromasia Marked; MCH 32.8 pg (25.0-35.0); MCHC 30.7 g/dL (31.0-37.0); Macrocytosis Marked; Mean Platelet Volume 13.6; Platelet Count 72 k/uL (150-450); RBC 2.45 m/uL (3.80-5.40); RDW 19.4 % (11.5-15.5); WBC 13.5 k/uL (3.8-10.6)
[2019-11-21 05:54] LABS: Albumin 2.1 g/dL (3.5-5.0); Calcium 8.1 mg/dL (8.4-10.2); Potassium 3.7 mmol/L (3.5-5.1)
[2019-11-21 06:06] LABS: Band Neutrophils % 3 %; Eosinophils # (M) 0.41 k/uL (0-0.7); Lymphocytes # (M) 0.27 k/uL (1.0-4.8); Monocytes # (M) 0.14 k/uL (0-1.0); Neutrophils % (M) 91 %; Nucleated Red Blood Cells 0 /100 WBC (0-0); Total Cells Counted 100
[2019-11-21] MEDS: LEVOTHYROXINE 25 MCG TAB PO SCH (06:36)
[2019-11-21] MEDS: FLOVENT INHALATION SCH ×2 (08:01→20:40)
[2019-11-21] MEDS: LACTULOSE 20 GM/30 ML CUP PO SCH ×2 (09:29→21:21)
[2019-11-21] MEDS: ESCITALOPRAM 10 MG TAB PO SCH (09:29)
[2019-11-21] MEDS: amLODIPine 5 MG TAB PO SCH (09:30)
[2019-11-21] MEDS: FUROSEMIDE 40 MG TAB PO SCH ×2 (09:30→18:35)
[2019-11-21] MEDS: LORATADINE 10 MG TAB PO SCH (09:30)
[2019-11-21] MEDS: GABAPENTIN 100 MG CAP PO SCH ×2 (09:30→21:20)
[2019-11-21] MEDS: MEMANTINE 5 MG TAB PO SCH ×2 (09:30→18:35)
[2019-11-21] MEDS: FERROUS SULFATE 325 MG TAB PO SCH ×2 (09:30→18:34)
[2019-11-21] MEDS: RIFAXIMIN 550 MG TABLET PO SCH ×2 (09:31→21:21)
[2019-11-21] MEDS: PROPRANOLOL 10 MG TAB PO SCH ×3 (09:31→18:36)
[2019-11-21] MEDS: PANTOPRAZOLE 40 MG TABLET PO SCH ×2 (09:34→18:34)
[2019-11-21] MEDS: traMADol 50 MG TAB PO PRN ×2 (11:37→23:16)
--- NOTE | 2019-11-21 13:10 | PN ---
PROGRESS NOTE DATE OF SERVICE: 11/21/2019 INTERVAL HISTORY: Patient is a 74-year-old pleasant white female admitted to the hospital with hepatic encephalopathy. She is on lactulose as well as Xifaxan that was started yesterday. She is more awake today, slightly confused but overall much better. She denies any symptoms. PHYSICAL EXAMINATION: VITAL SIGNS: Blood pressure is 118/69, pulse is 76, temperature 97.6. HEENT: Examination unremarkable. Conjunctivae pink. Sclerae anicteric. Oral cavity no lesions. NECK: No JVD or lymph node enlargement. CHEST: Clear to auscultation. HEART: Regular rate and rhythm. ABDOMEN: Soft. Bowel sounds are positive. No organomegaly. NEURO: She is alert, oriented to name and place but not to time. LABS: From today ammonia level is 27. Serum ALT and AST of 43 and 44 respectively, T bilirubin 1, alkaline phosphatase 131. WBC 13.5, hemoglobin 8, platelets 72,000. IMPRESSION: 1. Hepatic encephalopathy secondary to underlying chronic alcoholic cirrhosis of the liver. Presently on Xifaxan and oral lactulose. Her ammonia level has normalized and she is much more awake today. 2. Alcoholic cirrhosis of the liver with gradual decompensation. 3. Anemia and thrombocytopenia which is multifactorial in etiology, most likely related to underlying chronic liver disease with portal hypertension and hypersplenism. Clinically no evidence of active bleeding. RECOMMENDATIONS: 1. Continue with Xifaxan 550 b.i.d. 2. Lactulose 30 g 3 times daily. 3. Monitor her labs on a close basis. 4. Continue with Protonix 40 mg daily. 5. We will follow with you closely. Thank you for this consultation. MMODL / IJN: [id number] /
--- NOTE | 2019-11-21 13:51 | P.PN ---
Subjective Progress Note Date: 11/21/19 Principal diagnosis: This is a 74-year-old female who is seen in consultation because of chronic kidney disease, cardiorenal syndrome acute kidney injury. She is weak tired but cheerful He is denying any chest pain shortness of breath fever chills. Currently she is on Lasix 40 twice a day by mouth. Vital signs are stable output is documented at 1500 mL for the last 24 hours Her creatinine is 2.2, and her baseline is about there although it fluctuates between 1.4-2.15 Objective - Vital Signs Vital signs: Vital Signs Temp 97.8 F 11/21/19 12:00 Pulse 77 11/21/19 12:00 Resp 19 11/21/19 12:00 BP 124/60 11/21/19 12:00 Pulse Ox 95 11/21/19 12:00 Intake & Output 11/20/19 11/21/19 11/21/19 18:59 06:59 18:59 Intake Total 350 Output Total 250 500 200 Balance -250 -500 150 Weight 74 kg 69.2 kg Intake: Oral 350 Output: Urine 250 300 Stool 200 200 Other: Voiding Method Indwelling Catheter Indwelling Catheter Indwelling Catheter On examination is awake alert seems to be oriented She has profound weakness difficulty sitting up HEENT exam no JVP neck is supple no facial asymmetry Lungs are significant for coarse crackles that improve after cough but not completely resolved Heart sounds are unremarkable no murmur rub gallop Abdomen soft nontender Extremity exam was minimal edema Neurologically awake alert oriented but profoundly weak - Labs CBC & Chem 7: 11/21/19 05:23 11/21/19 05:23 Labs: Abnormal Lab Results - Last 24 Hours (Table) 11/20/19 11/21/19 11/21/19 Range/Units 07:04 05:23 05:23 WBC 13.5 H (3.8-10.6) k/uL RBC 2.45 L (3.80-5.40) m/uL Hgb 8.0 L (11.4-16.0) gm/dL Hct 26.2 L (34.0-46.0) % MCV 107.0 H (80.0-100.0) fL MCHC 30.7 L (31.0-37.0) g/dL RDW 19.4 H (11.5-15.5) % Plt Count 72 L (150-450) k/uL Neutrophils # (Manual) 12.60 H (1.3-7.7) k/uL Lymphocytes # (Manual) 0.27 L (1.0-4.8) k/uL Macrocytosis Marked A Chloride 108 H (98-107) mmol/L BUN 66 H 66 H (7-17) mg/dL Creatinine 2.09 H 2.20 H (0.52-1.04) mg/dL Calcium 8.1 L 8.1 L (8.4-10.2) mg/dL AST 47 H 43 H (14-36) U/L Alkaline Phosphatase 149 H 131 H (38-126) U/L Albumin 2.2 L 2.1 L (3.5-5.0) g/dL Assessment and Plan Assessment: Impression 1. Chronic kidney disease stage III to 4 etiology nephrosclerosis Baseline creatinine is 2 and at times is better at 1.4. Currently creatinine is 2.2 2. Congestive heart failure, improved difficult to clinically assess because of poor inspiratory effort he does have some crackles at bases 3. Anemia of chronic kidney disease. Hemoglobin is 8 4. Severe iron deficiency serum iron is less than 2 on 11/16/2019 TIBC is 195. Recommendations 1. Continue by mouth Lasix 2. Patient has been given IV iron. 3. Will watch her hemoglobin
--- NOTE | 2019-11-21 15:19 | PN ---
PROGRESS NOTE She is a little bit more awake today. Discussed the case with Dr. Lizbeth Calloway, GI clinic. We ordered Xifaxan to go with the lactulose and keep the fecal system in. She is more awake today. Her ammonia level dropped down from 100 to 20-30. Cardiovascular S1-S2. Lungs clear. GI soft, distended. Extremities have 2 to 3+ edema. Hemoglobin remains at 8 and it was 8 yesterday. White count 13.5 up from 8.5. BUN 66, creatinine 2.20. Since she is eating and drinking now, we are going to want to wait another day before we give her fluids, since she is more alert and awake and she is eating more. Prognosis is extremely guarded due to portal hypertension. End-stage liver disease, acute on chronic anemia from esophageal varices, dehydration, prerenal renal failure. MMODL / IJN: [id number] /
[2019-11-21] MEDS: COLLAGENASE 250 UNIT/GM OINTMENT 30 GM TUBE TOPICAL SCH (18:35)
[2019-11-21] MEDS: SODIUM CHLORIDE 0.9% 500 ML 500 ML IV SCH (18:35)
[2019-11-21] MEDS ORDERED: FUROSEMIDE 10 MG/ML 4 ML VIAL IV STA (19:38)
[2019-11-21] MEDS: DONEPEZIL 10 MG TAB PO SCH (21:20)
[2019-11-22] MEDS: DIPHENOX-ATROP 2.5-0.025 MG 1 EACH TAB PO SCH ×4 (03:50→20:43)
[2019-11-22 05:51] LABS: Anisocytosis Slight; HCT 24.1 % (34.0-46.0); HGB 7.1 gm/dL (11.4-16.0); Hypochromasia Marked; MCH 31.9 pg (25.0-35.0); MCHC 29.6 g/dL (31.0-37.0); Macrocytosis Marked; Mean Platelet Volume 11.3; RBC 2.23 m/uL (3.80-5.40); RDW 19.8 % (11.5-15.5); WBC 10.1 k/uL (3.8-10.6)
[2019-11-22 05:56] LABS: Platelet Count 61 k/uL (150-450)
[2019-11-22 06:14] LABS: Calcium 8.4 mg/dL (8.4-10.2); Potassium 3.8 mmol/L (3.5-5.1)
[2019-11-22] MEDS: LEVOTHYROXINE 25 MCG TAB PO SCH (06:19)
[2019-11-22] MEDS: amLODIPine 5 MG TAB PO SCH (08:08)
[2019-11-22] MEDS: FERROUS SULFATE 325 MG TAB PO SCH ×2 (08:08→16:57)
[2019-11-22] MEDS: GABAPENTIN 100 MG CAP PO SCH ×2 (08:08→20:42)
[2019-11-22] MEDS: LACTULOSE 20 GM/30 ML CUP PO SCH ×2 (08:09→20:42)
[2019-11-22] MEDS: FUROSEMIDE 40 MG TAB PO SCH ×2 (08:09→16:57)
[2019-11-22] MEDS: LORATADINE 10 MG TAB PO SCH (08:09)
[2019-11-22] MEDS: MEMANTINE 5 MG TAB PO SCH ×2 (08:09→16:57)
[2019-11-22] MEDS: RIFAXIMIN 550 MG TABLET PO SCH ×2 (08:09→20:43)
[2019-11-22] MEDS: ESCITALOPRAM 10 MG TAB PO SCH (08:09)
[2019-11-22] MEDS: FLOVENT INHALATION SCH ×2 (08:25→21:10)
[2019-11-22] MEDS: PANTOPRAZOLE 40 MG TABLET PO SCH ×2 (08:32→16:57)
[2019-11-22] MEDS: PROPRANOLOL 10 MG TAB PO SCH ×3 (08:33→16:57)
[2019-11-22] MEDS: COLLAGENASE 250 UNIT/GM OINTMENT 30 GM TUBE TOPICAL SCH (08:36)
[2019-11-22] MEDS: ACETAMINOPHEN TAB 325 MG TAB PO PRN (13:24)
--- NOTE | 2019-11-22 14:08 | P.PN ---
Subjective Progress Note Date: 11/22/19 Principal diagnosis: This is a 74-year-old female who is seen in consultation because of chronic kidney disease, cardiorenal syndrome acute kidney injury. She is weak tired but cheerful. She has a rectal tube she is somewhat confused She is denying any chest pain shortness of breath fever chills. Currently she is on Lasix 40 twice a day by mouth. Vital signs are stable out put is documented at 1500 mL for the last 24 hours, but yesterday went down to 750 mL. Her blood pressure is reasonably controlled at the 110 level, heart rate in the 60s to 70s afebrile Her creatinine is 2.2, and her baseline is about there although it fluctuates between 1.4-2.15 Objective - Vital Signs Vital signs: Vital Signs Temp 97.7 F 11/22/19 11:34 Pulse 76 11/22/19 12:00 Resp 16 11/22/19 12:00 BP 114/55 11/22/19 11:34 Pulse Ox 96 11/22/19 11:34 Intake & Output 11/21/19 11/22/19 11/22/19 18:59 06:59 18:59 Intake Total 1750 600 Output Total 350 400 Balance 1400 -400 600 Weight 75.1 kg Intake: Intake, IV Titration 80 Amount Sodium Chloride 0.9% 500 80 ml 500 ml @ 20 mls/hr IV .Q24H [facility] Rx#:[id number] Oral 1670 600 Output: Urine 150 200 Stool 200 200 Other: Voiding Method Indwelling Catheter Indwelling Catheter Indwelling Catheter Examination awake alert but confused Very cooperative and cheerful HEENT exam no JVP neck is supple no facial asymmetry Lungs are significant for slightly prolonged expiratory phase no crackles fairly good air entry Heart sounds are unremarkable for any murmur rub gallop Abdomen soft nontender Extremity exam was mild edema Neurologically awake alert but disoriented - Labs CBC & Chem 7: 11/22/19 05:36 11/22/19 05:36 Labs: Abnormal Lab Results - Last 24 Hours (Table) 11/22/19 11/22/19 Range/Units 05:36 05:36 RBC 2.23 L (3.80-5.40) m/uL Hgb 7.1 L (11.4-16.0) gm/dL Hct 24.1 L (34.0-46.0) % MCV 108.0 H (80.0-100.0) fL MCHC 29.6 L (31.0-37.0) g/dL RDW 19.8 H (11.5-15.5) % Plt Count 61 L (150-450) k/uL Macrocytosis Marked A Chloride 109 H (98-107) mmol/L BUN 67 H (7-17) mg/dL Creatinine 2.29 H (0.52-1.04) mg/dL Glucose 130 H (74-99) mg/dL Assessment and Plan Assessment: Impression 1. Acute kidney injury cardiorenal syndrome. Echocardiogram shows ejection fraction is 55-60%. Creatinine is 2.29 this morning, urine output is adequate at 750 mL, on 40 mg Lasix by mouth twice a day 2. Chronic kidney disease stage III to IV, etiology nephrosclerosis Baseline creatinine is 2 and at times is better at 1.4. Currently creatinine is 2.29. 2. Congestive heart failure, improved difficult to clinically assess because of poor inspiratory effort he does have some crackles at bases 3. Anemia of chronic kidney disease. Hemoglobin is 8, went down to 7.1 this morning 4. Severe iron deficiency serum iron is less than 2 on 11/16/2019 TIBC is 195. Recommendations 1. Will discontinue the amlodipine because of its tendency to cause edema and blood pressure is slightly low, with improvement in blood pressure kidney perfusion may improve 2. Continue by mouth Lasix 2. Patient has been given IV iron. 3. Will watch her hemoglobin, may benefit from transfusion
--- NOTE | 2019-11-22 14:29 | PN ---
PROGRESS NOTE DATE OF SERVICE: 11/22/2019 The patient is a 74-year-old pleasant white female with history of alcoholic liver disease with alcoholic cirrhosis of the liver with gradual decompensation, admitted to hospital with hepatic encephalopathy, now developing worsening BUN and creatinine during this hospitalization. She is on Xifaxan and lactulose and ammonia levels have normalized. However, she continues to be very lethargic and overall has decline in her functional status. She denies any new symptoms today but still remains somewhat confused. PHYSICAL EXAMINATION: She appears comfortable, no apparent distress. Vital signs are stable. Blood pressure is 124/60, pulse rate 77, temperature 97.8. HEENT examination unremarkable. Conjunctivae pink. Sclerae anicteric. Oral cavity no lesions. NECK: No JVD or lymph node enlargement. CHEST was clear to auscultation. HEART: Regular rate and rhythm. ABDOMEN: Soft. Bowel sounds are positive. EXTREMITIES: 1+ pedal edema. SKIN: No rashes. NEURO: She is awake but very sleepy. LABS: Labs from today: WBC 10.1, hemoglobin 7.1, platelets 61,000. BUN is 67, creatinine is 2.29. Ammonia level is 13. IMPRESSION: 1. Hepatic encephalopathy, resolved, presently on lactulose and Xifaxan. 2. Alcoholic liver disease with gradual decompensation and decline in overall functional status. 3. Generalized weakness and fatigue. 4. Elevated BUN and creatinine possibly related to chronic kidney disease with superimposed acute kidney injury, rule out hepatorenal syndrome. RECOMMENDATIONS: 1. Continue with symptomatic and supportive care. 2. Monitor labs closely. 3. Continue Xifaxan and lactulose. 4. If her overall condition continues to decline, we need to discuss with the family regarding comfort measures. The plan was discussed with Dr. Davila. Thank you for this consultation. MMODL / IJN: [id number] /
[2019-11-22] MEDS: SODIUM CHLORIDE 0.9% 500 ML 500 ML IV SCH (14:30)
[2019-11-22] MEDS: DONEPEZIL 10 MG TAB PO SCH (20:42)
[2019-11-22] MEDS ORDERED: FUROSEMIDE 10 MG/ML 4 ML VIAL IV STA (21:06)
--- NOTE | 2019-11-23 01:53 | PN ---
PROGRESS NOTE A white female who appears wet today. We are going to give her 40 of Lasix IV. Family made her DNR. Continues on lactulose, fecal system, Xifaxan. CARDIOVASCULAR: S1, S2. LUNGS: Clear. GI: Soft. HEMATOLOGY: Negative Homans. PSYCH: Flat mood and affect, sleepy, lethargic. ASSESSMENT: 1. Hyperammonia. 2. Cirrhosis. 3. Severe anemia. 4. Diastolic congestive heart failure. Prognosis guarded. Follow up next 24 to 48 hours. Possibly made hospice care and just send back to rehab center if her hemoglobin stabilizes. Otherwise, we will transfuse her again. MMODL / IJN: [id number] /
[2019-11-23] MEDS: DIPHENOX-ATROP 2.5-0.025 MG 1 EACH TAB PO SCH ×4 (06:09→20:55)
[2019-11-23 06:33] LABS: Anisocytosis Moderate; HCT 24.6 % (34.0-46.0); HGB 7.2 gm/dL (11.4-16.0); Hypochromasia Marked; MCH 32.3 pg (25.0-35.0); MCHC 29.4 g/dL (31.0-37.0); MCV 109.7 fL (80.0-100.0); Macrocytosis Marked; Mean Platelet Volume 11.6; RBC 2.24 m/uL (3.80-5.40); RDW 20.3 % (11.5-15.5); WBC 10.3 k/uL (3.8-10.6)
[2019-11-23 06:37] LABS: Platelet Count 42 k/uL (150-450)
[2019-11-23] MEDS: LEVOTHYROXINE 25 MCG TAB PO SCH (06:47)
[2019-11-23 06:55] LABS: Albumin 2.1 g/dL (3.5-5.0); Band Neutrophils % 1 %; Calcium 8.1 mg/dL (8.4-10.2); Neutrophils % (M) 98 %; Nucleated Red Blood Cells 0 /100 WBC (0-0); Potassium 4.2 mmol/L (3.5-5.1); Total Bilirubin 0.9 mg/dL (0.2-1.3); Total Cells Counted 100
[2019-11-23 06:56] LABS: Anisocytosis (M) Present; Target Cells Present
[2019-11-23] MEDS: FLOVENT INHALATION SCH ×2 (08:25→20:06)
[2019-11-23] MEDS: FUROSEMIDE 40 MG TAB PO SCH ×2 (11:59→18:47)
[2019-11-23] MEDS: LACTULOSE 20 GM/30 ML CUP PO SCH ×2 (11:59→20:55)
[2019-11-23] MEDS: ESCITALOPRAM 10 MG TAB PO SCH (11:59)
[2019-11-23] MEDS: GABAPENTIN 100 MG CAP PO SCH ×2 (11:59→20:55)
[2019-11-23] MEDS: LORATADINE 10 MG TAB PO SCH (11:59)
[2019-11-23] MEDS: MEMANTINE 5 MG TAB PO SCH ×2 (11:59→18:47)
[2019-11-23] MEDS: PANTOPRAZOLE 40 MG TABLET PO SCH ×2 (11:59→18:47)
[2019-11-23] MEDS: FERROUS SULFATE 325 MG TAB PO SCH ×2 (11:59→18:47)
[2019-11-23] MEDS: COLLAGENASE 250 UNIT/GM OINTMENT 30 GM TUBE TOPICAL SCH (12:00)
[2019-11-23] MEDS: RIFAXIMIN 550 MG TABLET PO SCH ×2 (12:01→20:55)
[2019-11-23] MEDS: PROPRANOLOL 10 MG TAB PO SCH ×3 (12:01→18:47)
[2019-11-23] MEDS: SODIUM CHLORIDE 0.9% 500 ML 500 ML IV SCH (12:02)
--- NOTE | 2019-11-23 12:09 | P.PN ---
Subjective Patient is seen in follow-up for acute kidney injury on chronic kidney disease. Renal function is stable. Denies chest pain or shortness of breath. Currently on 3 L nasal cannula. No vomiting or diarrhea. Vital signs are stable. General: The patient appeared well nourished and normally developed. HEENT: Head exam is unremarkable. Neck is without jugular venous distension. LUNGS: Breath sounds decreased. HEART: Rate and Rhythm are regular. ABDOMEN: Soft, nontender. EXTREMITITES: 2+ edema. Objective - Vital Signs Vital signs: Vital Signs Temp 98.5 F 11/23/19 04:00 Pulse 69 11/23/19 04:00 Resp 19 11/23/19 04:00 BP 93/55 11/23/19 04:00 Pulse Ox 93 L 11/23/19 04:00 Intake & Output 11/22/19 11/23/19 11/23/19 18:59 06:59 18:59 Intake Total 1980 480 Output Total 480 Balance 1980 -480 480 Weight 74.1 kg Intake: Oral 1979 480 Output: Urine 280 Stool 200 Other: Voiding Method Indwelling Catheter Indwelling Catheter # Voids 1 # Bowel Movements 1 - Labs CBC & Chem 7: 11/23/19 06:19 11/23/19 06:19 Labs: Abnormal Lab Results - Last 24 Hours (Table) 11/23/19 11/23/19 Range/Units 06:19 06:19 RBC 2.24 L (3.80-5.40) m/uL Hgb 7.2 L (11.4-16.0) gm/dL Hct 24.6 L (34.0-46.0) % MCV 109.7 H (80.0-100.0) fL MCHC 29.4 L (31.0-37.0) g/dL RDW 20.3 H (11.5-15.5) % Plt Count 42 L (150-450) k/uL Neutrophils # (Manual) 10.10 H (1.3-7.7) k/uL Lymphocytes # (Manual) 0.10 L (1.0-4.8) k/uL Macrocytosis Marked A Chloride 109 H (98-107) mmol/L BUN 65 H (7-17) mg/dL Creatinine 2.22 H (0.52-1.04) mg/dL Glucose 108 H (74-99) mg/dL Calcium 8.1 L (8.4-10.2) mg/dL AST 60 H (14-36) U/L Alkaline Phosphatase 189 H (38-126) U/L Albumin 2.1 L (3.5-5.0) g/dL Assessment and Plan Plan: Assessment: 1. Acute kidney injury mostly prerenal secondary to cardiorenal syndrome. Renal function stable. Creatinine 2.22 today. 2. 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 3. Acute on chronic diastolic CHF. 4. Anemia of chronic kidney disease maintained on Aranesp. Plan: Maintain Lasix 40 mg orally twice daily. Avoid nephrotoxins. Continue to monitor renal function and urine output.
[2019-11-23] MEDS: DONEPEZIL 10 MG TAB PO SCH (18:47)
[2019-11-23] MEDS: DARBEPOETIN ALFA 60 MCG/0.3 ML SYRINGE SQ SCH (18:57)
--- NOTE | 2019-11-23 21:53 | PN ---
PROGRESS NOTE This patient is a 74-year-old white female with liver failure, hepatic encephalopathy, improving. She is more alert today, knows what year it is, knows she is in the hospital, but very fatigued and tired. Hemoglobin still is 7.2. Hopefully we can get her hemoglobin stabilized to the point where she go back to the rehab center. She is now DNR. CARDIOVASCULAR: S1, S2. LUNGS: Lungs show scattered rhonchi and wheeze. White count is 10.3, hemoglobin 7.2. Platelet count is down to 20.3. Sodium 141, potassium 4.2, BUN 65, creatinine 2.22. Calcium is 8.11. Ammonia is less than 9. Prognosis is extremely guarded. The patient is not improving. She is already DNR. Will talk to the family about going back to the [facility], possibly going back on hospice, as she is not improving at this point and she is just maintaining. Will see what they want to do. MMKRISHANL / IJN: [id number] /
[2019-11-23] MEDS: ACETAMINOPHEN TAB 325 MG TAB PO PRN (23:21)
[2019-11-24] MEDS: DIPHENOX-ATROP 2.5-0.025 MG 1 EACH TAB PO SCH ×4 (03:07→20:40)
[2019-11-24 06:20] LABS: Anisocytosis Moderate; HCT 24.4 % (34.0-46.0); HGB 7.3 gm/dL (11.4-16.0); Hypochromasia Marked; MCH 32.9 pg (25.0-35.0); MCHC 29.8 g/dL (31.0-37.0); MCV 110.4 fL (80.0-100.0); Macrocytosis Marked; Mean Platelet Volume 12.2; RBC 2.21 m/uL (3.80-5.40); RDW 20.5 % (11.5-15.5); WBC 9.3 k/uL (3.8-10.6)
[2019-11-24 06:27] LABS: Platelet Count 45 k/uL (150-450)
[2019-11-24 06:30] LABS: Calcium 8.2 mg/dL (8.4-10.2); Magnesium 1.8 mg/dL (1.6-2.3); Potassium 4.1 mmol/L (3.5-5.1); Total Bilirubin 0.8 mg/dL (0.2-1.3); Total Protein 6.6 g/dL (6.3-8.2)
[2019-11-24] MEDS: LEVOTHYROXINE 25 MCG TAB PO SCH (06:31)
[2019-11-24] MEDS: FLOVENT INHALATION SCH ×2 (07:34→20:06)
[2019-11-24 08:38] LABS: Band Neutrophils % 1 %; Eosinophils # (M) 0.28 k/uL (0-0.7); Lymphocytes # (M) 0.56 k/uL (1.0-4.8); Monocytes # (M) 0.37 k/uL (0-1.0); Neutrophils % (M) 86 %; Nucleated Red Blood Cells 0 /100 WBC (0-0); Total Cells Counted 100
[2019-11-24 08:39] LABS: Rouleaux Present
[2019-11-24] MEDS: GABAPENTIN 100 MG CAP PO SCH ×2 (09:48→20:38)
[2019-11-24] MEDS: PROPRANOLOL 10 MG TAB PO SCH ×3 (09:48→17:52)
[2019-11-24] MEDS: RIFAXIMIN 550 MG TABLET PO SCH ×2 (09:48→20:38)
[2019-11-24] MEDS: LORATADINE 10 MG TAB PO SCH (09:49)
[2019-11-24] MEDS: PANTOPRAZOLE 40 MG TABLET PO SCH ×2 (09:49→17:52)
[2019-11-24] MEDS: MEMANTINE 5 MG TAB PO SCH ×2 (09:49→17:52)
[2019-11-24] MEDS: FUROSEMIDE 40 MG TAB PO SCH ×2 (09:49→17:53)
[2019-11-24] MEDS: FERROUS SULFATE 325 MG TAB PO SCH ×2 (09:49→17:53)
[2019-11-24] MEDS: LACTULOSE 20 GM/30 ML CUP PO SCH ×2 (09:50→20:38)
[2019-11-24] MEDS: ESCITALOPRAM 10 MG TAB PO SCH (09:50)
--- NOTE | 2019-11-24 10:12 | P.PN ---
Subjective Patient is seen in follow-up for acute kidney injury on chronic kidney disease. Renal function is stable. Denies chest pain or shortness of breath. Currently on 3 L nasal cannula. No vomiting or diarrhea. Remains somewhat lethargic Vital signs are stable. General: The patient appeared well nourished and normally developed. HEENT: Head exam is unremarkable. Neck is without jugular venous distension. LUNGS: Breath sounds decreased. HEART: Rate and Rhythm are regular. ABDOMEN: Soft, nontender. EXTREMITITES: 2+ edema. Objective - Vital Signs Vital signs: Vital Signs Temp 97.9 F 11/24/19 03:36 Pulse 62 11/24/19 08:00 Resp 18 11/24/19 08:00 BP 121/56 11/24/19 08:00 Pulse Ox 97 11/24/19 08:00 Intake & Output 11/23/19 11/24/19 11/24/19 18:59 06:59 18:59 Intake Total 1320 600 Output Total 650 300 Balance 670 -300 600 Weight 101.5 kg Intake: Oral 1320 600 Output: Urine 250 300 Stool 400 Other: Voiding Method Indwelling Catheter Indwelling Catheter # Bowel Movements 3 - Labs CBC & Chem 7: 11/24/19 05:35 11/24/19 05:35 Labs: Abnormal Lab Results - Last 24 Hours (Table) 11/24/19 11/24/19 Range/Units 05:35 05:35 RBC 2.21 L (3.80-5.40) m/uL Hgb 7.3 L (11.4-16.0) gm/dL Hct 24.4 L (34.0-46.0) % MCV 110.4 H (80.0-100.0) fL MCHC 29.8 L (31.0-37.0) g/dL RDW 20.5 H (11.5-15.5) % Plt Count 45 L (150-450) k/uL Neutrophils # (Manual) 8.00 H (1.3-7.7) k/uL Lymphocytes # (Manual) 0.56 L (1.0-4.8) k/uL Macrocytosis Marked A BUN 68 H (7-17) mg/dL Creatinine 2.24 H (0.52-1.04) mg/dL Calcium 8.2 L (8.4-10.2) mg/dL AST 61 H (14-36) U/L Alkaline Phosphatase 201 H (38-126) U/L Albumin 2.0 L (3.5-5.0) g/dL Assessment and Plan Plan: Assessment: 1. Acute kidney injury mostly prerenal secondary to cardiorenal syndrome. Renal function stable. Creatinine 2.24 today. 2. 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 3. Acute on chronic diastolic CHF. 4. Anemia of chronic kidney disease maintained on Aranesp. Plan: Maintain Lasix 40 mg orally twice daily. Avoid nephrotoxins. Continue to monitor renal function and urine output.
[2019-11-24] MEDS: COLLAGENASE 250 UNIT/GM OINTMENT 30 GM TUBE TOPICAL SCH (10:48)
[2019-11-24] MEDS: SODIUM CHLORIDE 0.9% 500 ML 500 ML IV SCH (13:10)
[2019-11-24] MEDS: DONEPEZIL 10 MG TAB PO SCH (20:38)
--- NOTE | 2019-11-24 23:25 | PN ---
PROGRESS NOTE She is more alert today, but eating has not been real good. Vital signs were reviewed. Hemoglobin 7.3, white count 9.3. Discussed with the patient going back to [facility] and possibly going under hospice care. She will need to stay on Xifaxan and lactulose with a fecal retention system occasional extra Lasix for fluid overload. CARDIOVASCULAR: S1, S2. LUNGS: Clear. GI: Soft. HEMATOLOGY: Negative Homans. PSYCH: Fair mood and affect. ASSESSMENT: 1. Hepatic encephalopathy. 2. Renal failure. 3. Liver failure. 4. Cirrhosis. 5. Severe anemia. Prognosis guarded. Ambulate as tolerated. Follow up in the next 24-48 hours for possible discharge to a rehab center. PINKY / RUTHN: [id number] /
[2019-11-25] MEDS: traMADol 50 MG TAB PO PRN (03:09)
[2019-11-25] MEDS: DIPHENOX-ATROP 2.5-0.025 MG 1 EACH TAB PO SCH ×4 (03:10→20:51)
[2019-11-25] MEDS: LEVOTHYROXINE 25 MCG TAB PO SCH (05:53)
[2019-11-25] MEDS: FLOVENT INHALATION SCH ×2 (08:22→19:15)
[2019-11-25] MEDS: PROPRANOLOL 10 MG TAB PO SCH ×3 (08:58→18:13)
[2019-11-25] MEDS: PANTOPRAZOLE 40 MG TABLET PO SCH ×2 (08:58→18:13)
[2019-11-25] MEDS: LORATADINE 10 MG TAB PO SCH (08:58)
[2019-11-25] MEDS: FERROUS SULFATE 325 MG TAB PO SCH ×2 (08:58→18:13)
[2019-11-25] MEDS: GABAPENTIN 100 MG CAP PO SCH ×2 (08:58→20:51)
[2019-11-25] MEDS: ESCITALOPRAM 10 MG TAB PO SCH (08:58)
[2019-11-25] MEDS: FUROSEMIDE 40 MG TAB PO SCH ×2 (08:59→18:13)
[2019-11-25] MEDS: MEMANTINE 5 MG TAB PO SCH ×2 (08:59→18:13)
[2019-11-25] MEDS: RIFAXIMIN 550 MG TABLET PO SCH ×2 (08:59→20:51)
[2019-11-25] MEDS: COLLAGENASE 250 UNIT/GM OINTMENT 30 GM TUBE TOPICAL SCH (08:59)
[2019-11-25] MEDS: LACTULOSE 20 GM/30 ML CUP PO SCH ×2 (08:59→20:51)
--- NOTE | 2019-11-25 10:14 | P.PN ---
Subjective Patient is seen in follow-up for acute kidney injury on chronic kidney disease. Renal function is stable. No new labs today. Denies chest pain or shortness of breath. Currently on 3 L nasal cannula. No vomiting or diarrhea. Remains lethargic. Vital signs are stable. General: The patient appeared well nourished and normally developed. HEENT: Head exam is unremarkable. Neck is without jugular venous distension. LUNGS: Breath sounds decreased. HEART: Rate and Rhythm are regular. ABDOMEN: Soft, nontender. EXTREMITITES: 2+ edema. Objective - Vital Signs Vital signs: Vital Signs Temp 98.3 F 11/25/19 04:09 Pulse 66 11/25/19 04:09 Resp 16 11/25/19 04:09 BP 91/55 11/25/19 04:09 Pulse Ox 95 11/25/19 04:09 Intake & Output 11/24/19 11/25/19 11/25/19 18:59 06:59 18:59 Intake Total 1920 240 Output Total 500 210 Balance 1420 30 Weight 101.5 kg 102.3 kg Intake: Oral 1920 240 Output: Urine 300 210 Stool 200 Other: Voiding Method Indwelling Catheter # Bowel Movements 2 - Labs CBC & Chem 7: 11/24/19 05:35 11/24/19 05:35 Assessment and Plan Plan: Assessment: 1. Acute kidney injury mostly prerenal secondary to cardiorenal syndrome. Renal function stable. Creatinine 2.24 as of yesterday. 2. 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 3. Acute on chronic diastolic CHF. 4. Anemia of chronic kidney disease maintained on Aranesp. Plan: Maintain Lasix 40 mg orally twice daily. Avoid nephrotoxins. Continue to monitor renal function and urine output. Repeat electrolytes in the morning.
[2019-11-25] MEDS: SODIUM CHLORIDE 0.9% 500 ML 500 ML IV SCH (13:51)
[2019-11-25] MEDS: DONEPEZIL 10 MG TAB PO SCH (20:51)
--- NOTE | 2019-11-25 23:19 | PN ---
PROGRESS NOTE Discussed with the family possible palliative hospice consult will be done. She appears to be at her baseline and she has intermittent severe confusion. Hemoglobin is 7.3. Labs were not done today. She will get palliative hospice consult for possibly sent back with hospice care and palliative hospice back to the rehab center. She has been started on Xifaxan to go with lactulose in the feeding system for maintain her ammonia level down. Hemoglobin is low sevens chronically, intermittent metabolic encephalopathy and confusion due to hepatic encephalopathy. Her diet is poor, but is taking some food in. CARDIOVASCULAR: S1, S2. LUNGS: Clear. GI: Distended. HEMATOLOGIC: Third-spacing. ASSESSMENT: 1. Hepatic encephalopathy. 2. Cirrhosis. 3. Esophageal varices. 4. Diastolic congestive heart failure. 5. Chronic obstructive pulmonary disease. Prognosis is guarded. Hospice palliative at this time, submit to the detention. Prognosis extremely guarded. MMODL / IJN: [id number] /
[2019-11-26] MEDS: LEVOTHYROXINE 25 MCG TAB PO SCH (05:31)
[2019-11-26] MEDS: DIPHENOX-ATROP 2.5-0.025 MG 1 EACH TAB PO SCH ×3 (05:31→15:52)
[2019-11-26 06:48] LABS: Anisocytosis Moderate; HCT 25.1 % (34.0-46.0); HGB 7.5 gm/dL (11.4-16.0); Hypochromasia Marked; MCH 33.2 pg (25.0-35.0); MCHC 29.6 g/dL (31.0-37.0); MCV 111.9 fL (80.0-100.0); Macrocytosis Marked; Mean Platelet Volume 12.7; RBC 2.25 m/uL (3.80-5.40); RDW 21.2 % (11.5-15.5); WBC 8.6 k/uL (3.8-10.6)
[2019-11-26 06:56] LABS: Platelet Count 43 k/uL (150-450)
[2019-11-26 07:05] LABS: Calcium 8.2 mg/dL (8.4-10.2); Magnesium 1.8 mg/dL (1.6-2.3); Potassium 4.5 mmol/L (3.5-5.1); Total Bilirubin 0.8 mg/dL (0.2-1.3); Total Protein 6.8 g/dL (6.3-8.2)
[2019-11-26 07:14] LABS: Eosinophils # (M) 0.09 k/uL (0-0.7); Lymphocytes # (M) 0.52 k/uL (1.0-4.8); Monocytes # (M) 0.34 k/uL (0-1.0); Neutrophils # (M) 7.65 k/uL (1.3-7.7); Neutrophils % (M) 89 %; Nucleated Red Blood Cells 0 /100 WBC (0-0); Total Cells Counted 100
[2019-11-26 07:15] LABS: Polychromasia Present
[2019-11-26] MEDS: FLOVENT INHALATION SCH ×2 (07:50→19:59)
[2019-11-26] MEDS: FERROUS SULFATE 325 MG TAB PO SCH ×2 (10:14→15:52)
[2019-11-26] MEDS: LACTULOSE 20 GM/30 ML CUP PO SCH ×2 (10:15→20:06)
[2019-11-26] MEDS: GABAPENTIN 100 MG CAP PO SCH (10:15)
[2019-11-26] MEDS: PROPRANOLOL 10 MG TAB PO SCH ×3 (10:15→15:53)
[2019-11-26] MEDS: ESCITALOPRAM 10 MG TAB PO SCH (10:15)
[2019-11-26] MEDS: LORATADINE 10 MG TAB PO SCH (10:15)
[2019-11-26] MEDS: FUROSEMIDE 40 MG TAB PO SCH ×2 (10:15→15:52)
[2019-11-26] MEDS: PANTOPRAZOLE 40 MG TABLET PO SCH ×2 (10:15→15:52)
[2019-11-26] MEDS: MEMANTINE 5 MG TAB PO SCH ×2 (10:15→15:52)
[2019-11-26] MEDS: COLLAGENASE 250 UNIT/GM OINTMENT 30 GM TUBE TOPICAL SCH (10:16)
[2019-11-26] MEDS: RIFAXIMIN 550 MG TABLET PO SCH ×2 (10:16→20:06)
--- NOTE | 2019-11-26 15:23 | P.PN ---
Subjective Patient is seen in follow-up for acute kidney injury on chronic kidney disease. Renal function is stable. Denies chest pain or shortness of breath. Currently on 3 L nasal cannula. No vomiting or diarrhea. Remains quite lethargic. Granddaughter present at bedside. Vital signs are stable. General: The patient appeared well nourished and normally developed. HEENT: Head exam is unremarkable. Neck is without jugular venous distension. LUNGS: Breath sounds decreased. HEART: Rate and Rhythm are regular. ABDOMEN: Soft, nontender. EXTREMITITES: 2+ edema. Objective - Vital Signs Vital signs: Vital Signs Temp 97.5 F L 11/26/19 12:00 Pulse 62 11/26/19 12:00 Resp 18 11/26/19 12:00 BP 111/55 11/26/19 12:00 Pulse Ox 98 11/26/19 12:00 Intake & Output 11/25/19 11/26/19 11/26/19 18:59 06:59 18:59 Intake Total 358 120 118 Output Total 250 250 450 Balance 108 -130 -332 Weight 78 kg 78 kg Intake: Oral 358 120 118 Output: Urine 250 250 250 Stool 200 Other: Voiding Method Indwelling Catheter Indwelling Catheter # Voids 2 # Bowel Movements 1 1 - Labs CBC & Chem 7: 11/26/19 06:14 11/26/19 06:14 Labs: Abnormal Lab Results - Last 24 Hours (Table) 11/26/19 11/26/19 Range/Units 06:14 06:14 RBC 2.25 L (3.80-5.40) m/uL Hgb 7.5 L (11.4-16.0) gm/dL Hct 25.1 L (34.0-46.0) % MCV 111.9 H (80.0-100.0) fL MCHC 29.6 L (31.0-37.0) g/dL RDW 21.2 H (11.5-15.5) % Plt Count 43 L (150-450) k/uL Lymphocytes # (Manual) 0.52 L (1.0-4.8) k/uL Macrocytosis Marked A BUN 68 H (7-17) mg/dL Creatinine 2.36 H (0.52-1.04) mg/dL Calcium 8.2 L (8.4-10.2) mg/dL AST 52 H (14-36) U/L Alkaline Phosphatase 208 H (38-126) U/L Albumin 2.0 L (3.5-5.0) g/dL Assessment and Plan Plan: Assessment: 1. Acute kidney injury mostly prerenal secondary to cardiorenal syndrome. Renal function stable. Creatinine 2.36. 2. 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 3. Acute on chronic diastolic CHF. 4. Anemia of chronic kidney disease maintained on Aranesp. Plan: Maintain Lasix 40 mg orally twice daily. Avoid nephrotoxins. Continue to monitor renal function and urine output.
--- NOTE | 2019-11-26 17:11 | PN ---
PROGRESS NOTE This patient is a 74-year-old white female. She is alert and oriented today. She is eating food with her family. She is awaiting transfer to either a hospice home or to [facility] with palliative hospice. Hemoglobin is up to 7.5 today. BUN is 68, creatinine 2.36. AST is down to 52, alkaline phosphatase 208, ALT is 619. Ammonia level has been drawn today. Coronavirus not detectable. Possibly transfer her soon to a rehab center or to the [facility] House for palliative hospice, according to her [id number], whom I recently talked to 2 days ago. Possibly stop some of her medications that could be affecting her confusion and possibly continue with current treatment at this point. MMODL / IJN: [id number] /
[2019-11-27] MEDS: SODIUM CHLORIDE 0.9% 500 ML 500 ML IV SCH ×2 (06:30→18:38)
[2019-11-27] MEDS: LEVOTHYROXINE 25 MCG TAB PO SCH (06:41)
[2019-11-27] MEDS: FLOVENT INHALATION SCH ×2 (08:50→19:36)
[2019-11-27] MEDS: PANTOPRAZOLE 40 MG TABLET PO SCH ×2 (08:59→16:09)
[2019-11-27] MEDS: LACTULOSE 20 GM/30 ML CUP PO SCH ×2 (08:59→22:49)
[2019-11-27] MEDS: FERROUS SULFATE 325 MG TAB PO SCH ×2 (08:59→16:10)
[2019-11-27] MEDS: ESCITALOPRAM 10 MG TAB PO SCH (08:59)
[2019-11-27] MEDS: FUROSEMIDE 40 MG TAB PO SCH ×2 (08:59→16:10)
[2019-11-27] MEDS: PROPRANOLOL 10 MG TAB PO SCH ×3 (08:59→16:10)
[2019-11-27] MEDS: RIFAXIMIN 550 MG TABLET PO SCH ×2 (09:00→22:49)
[2019-11-27] MEDS: COLLAGENASE 250 UNIT/GM OINTMENT 30 GM TUBE TOPICAL SCH (09:00)
[2019-11-27] MEDS: MEMANTINE 5 MG TAB PO SCH ×2 (09:00→16:10)
[2019-11-27] MEDS: traMADol 50 MG TAB PO PRN (09:17)
--- NOTE | 2019-11-27 12:06 | P.PN ---
Subjective Patient is seen in follow-up for acute kidney injury on chronic kidney disease. Renal function is stable. Denies chest pain or shortness of breath. Currently on 3 L nasal cannula. No vomiting or diarrhea. Remains quite lethargic. No changes overnight. Vital signs are stable. General: The patient appeared well nourished and normally developed. HEENT: Head exam is unremarkable. Neck is without jugular venous distension. LUNGS: Breath sounds decreased. HEART: Rate and Rhythm are regular. ABDOMEN: Soft, nontender. EXTREMITITES: 2+ edema. Objective - Vital Signs Vital signs: Vital Signs Temp 97.6 F 11/27/19 08:00 Pulse 56 L 11/27/19 08:00 Resp 16 11/27/19 08:00 BP 121/56 11/27/19 08:00 Pulse Ox 98 11/27/19 08:00 Intake & Output 11/26/19 11/27/19 11/27/19 18:59 06:59 18:59 Intake Total 879 Output Total 650 500 Balance 229 -500 Weight 78 kg 77 kg Intake: Oral 879 Output: Urine 450 300 Stool 200 200 Other: Voiding Method Indwelling Catheter Indwelling Catheter Indwelling Catheter - Labs CBC & Chem 7: 11/26/19 06:14 11/26/19 06:14 Assessment and Plan Plan: Assessment: 1. Acute kidney injury mostly prerenal secondary to cardiorenal syndrome. Renal function stable. Creatinine 2.36 as of yesterday. 2. 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 3. Acute on chronic diastolic CHF. 4. Anemia of chronic kidney disease maintained on Aranesp. Plan: Maintain Lasix 40 mg orally twice daily. Avoid nephrotoxins. Continue to monitor renal function and urine output. Awaiting discharged to rehab.
[2019-11-27] MEDS: ACETAMINOPHEN TAB 325 MG TAB PO PRN (16:09)
--- NOTE | 2019-11-27 21:58 | PN ---
PROGRESS NOTE This patient is a 74-year-old white female seen by renal physician today. She is more alert today, eating more. She has chronic kidney disease. Renal function stable. She is on 3 L nasal cannula. She remains lethargic, but she is more alert than she was yesterday. No vomiting or diarrhea. No changes overnight. Vital signs are stable. Lungs have decreased breath sounds. HEENT: Normocephalic, atraumatic. Heart: S1, S2. Abdomen is soft. Extremities have 2+ edema. Temperature 97.6, pulse 50s to 60s, respiratory rate 16 to 18, blood pressure 121/56, O2 98%. Hemoglobin 7.5, white count 8.6, platelets 43. BUN is 68, creatinine 2.36. ASSESSMENT: 1. Acute kidney injury, most likely prerenal secondary to cardiorenal syndrome. Creatinine 2.36. 2. Chronic kidney disease, stage 3 to 4. 3. Cardiorenal syndrome. 4. Acute on chronic diastolic heart failure. 5. Anemia of chronic disease. 6. Hepatic encephalopathy. 7. Cirrhosis. 8. Liver failure. Continue on Xifaxan and lactulose. Avoid nephrotoxins. Lasix 40 b.i.d. Increase PT/OT. Will not send her back tomorrow due to positive COVID outbreak. Will try to get her into [facility] or [facility]. MMODL / IJN: [id number] /
[2019-11-28] MEDS: traMADol 50 MG TAB PO PRN (05:02)
[2019-11-28] MEDS: LEVOTHYROXINE 25 MCG TAB PO SCH (05:27)
[2019-11-28 07:06] LABS: Anisocytosis Moderate; HCT 21.4 % (34.0-46.0); Hypochromasia Marked; MCH 32.6 pg (25.0-35.0); MCHC 28.7 g/dL (31.0-37.0); MCV 113.4 fL (80.0-100.0); Macrocytosis Marked; Mean Platelet Volume 12.9; Platelet Count 46 k/uL (150-450); RBC 1.89 m/uL (3.80-5.40); RDW 22.4 % (11.5-15.5); WBC 7.1 k/uL (3.8-10.6)
[2019-11-28 07:17] LABS: Albumin 1.9 g/dL (3.5-5.0); Calcium 8.1 mg/dL (8.4-10.2); Potassium 4.7 mmol/L (3.5-5.1); Total Bilirubin 0.8 mg/dL (0.2-1.3); Total Protein 6.4 g/dL (6.3-8.2)
[2019-11-28 07:18] LABS: HGB 6.1 gm/dL (11.4-16.0)
[2019-11-28 08:01] LABS: Eosinophils # (M) 0.28 k/uL (0-0.7); Lymphocytes # (M) 0.36 k/uL (1.0-4.8); Monocytes # (M) 0.21 k/uL (0-1.0); Neutrophils # (M) 6.25 k/uL (1.3-7.7); Neutrophils % (M) 88 %; Nucleated Red Blood Cells 0 /100 WBC (0-0); Total Cells Counted 100
[2019-11-28] MEDS: FLOVENT INHALATION SCH ×2 (08:01→19:31)
[2019-11-28] MEDS: FERROUS SULFATE 325 MG TAB PO SCH ×2 (09:50→17:26)
[2019-11-28] MEDS: LACTULOSE 20 GM/30 ML CUP PO SCH ×2 (09:50→22:11)
[2019-11-28] MEDS: PANTOPRAZOLE 40 MG TABLET PO SCH ×2 (09:50→17:27)
[2019-11-28] MEDS: FUROSEMIDE 40 MG TAB PO SCH ×2 (09:50→15:35)
[2019-11-28] MEDS: COLLAGENASE 250 UNIT/GM OINTMENT 30 GM TUBE TOPICAL SCH (09:51)
[2019-11-28] MEDS: ESCITALOPRAM 10 MG TAB PO SCH (10:32)
[2019-11-28] MEDS: MEMANTINE 5 MG TAB PO SCH ×2 (10:32→17:26)
[2019-11-28] MEDS: PROPRANOLOL 10 MG TAB PO SCH ×3 (11:08→18:29)
[2019-11-28] MEDS ORDERED: FUROSEMIDE 10 MG/ML 4 ML VIAL IV STA (11:36)
--- NOTE | 2019-11-28 11:59 | PN ---
PROGRESS NOTE This is a 74-year-old white female, hepatic encephalopathy, esophageal varices, chronic GI bleeding. She is going to get another unit of blood for hemoglobin 6.1 today. She will be trying to find a rehab place. She will get Lasix following the blood transfusion, as she always gets fluid overloaded. She is on Lasix twice a day as it is. She is in and out of hepatic encephalopathy, but her ammonia level is stable at 20. Blood pressure 100/63, 97% on 3 L. Temp 97.4, pulse 63, respiratory 18. Psych, she is weak, lethargic. Cardiovascular S1, S2. GI is soft. Extremities show pitting edema bilaterally. ASSESSMENT: 1. Severe anemia secondary to gastrointestinal bleeding due to chronic liver failure and chronic angiomas and esophageal varices. 2. Hepatic encephalopathy. 3. Diastolic heart failure. 4. Chronic obstructive pulmonary disease. Prognosis extremely guarded. Transfer 1 unit of blood and give 40 Lasix IV and we will check labs in the morning. Await for residential placement. MMODL / IJN: [id number] /
[2019-11-28] MEDS: MIDODRINE 5 MG TAB PO SCH ×2 (12:33→17:27)
[2019-11-28] MEDS: SODIUM CHLORIDE 0.9% 500 ML 500 ML IV SCH (15:00)
[2019-11-29] MEDS: traMADol 50 MG TAB PO PRN ×3 (04:17→21:18)
[2019-11-29] MEDS: LEVOTHYROXINE 25 MCG TAB PO SCH (06:02)
[2019-11-29] MEDS: MIDODRINE 5 MG TAB PO SCH ×3 (08:15→17:30)
[2019-11-29] MEDS: PROPRANOLOL 10 MG TAB PO SCH ×3 (08:16→17:30)
[2019-11-29] MEDS: MEMANTINE 5 MG TAB PO SCH ×2 (08:16→17:29)
[2019-11-29] MEDS: PANTOPRAZOLE 40 MG TABLET PO SCH ×2 (08:16→17:30)
[2019-11-29] MEDS: FERROUS SULFATE 325 MG TAB PO SCH ×2 (08:16→17:29)
[2019-11-29] MEDS: ESCITALOPRAM 10 MG TAB PO SCH (08:16)
[2019-11-29] MEDS: FUROSEMIDE 40 MG TAB PO SCH ×2 (08:17→17:29)
[2019-11-29] MEDS: COLLAGENASE 250 UNIT/GM OINTMENT 30 GM TUBE TOPICAL SCH (08:25)
[2019-11-29] MEDS: FLOVENT INHALATION SCH ×2 (09:25→20:52)
[2019-11-29] MEDS: LACTULOSE 20 GM/30 ML CUP PO SCH ×2 (09:27→21:19)
[2019-11-29 10:54] LABS: Anisocytosis Moderate; HCT 26.7 % (34.0-46.0); Hypochromasia Marked; MCH 32.8 pg (25.0-35.0); MCHC 30.3 g/dL (31.0-37.0); Macrocytosis Marked; Mean Platelet Volume 12.3; Poikilocytosis Moderate; RBC 2.47 m/uL (3.80-5.40); RDW 23.2 % (11.5-15.5); WBC 11.8 k/uL (3.8-10.6)
[2019-11-29 10:58] LABS: HGB 8.1 gm/dL (11.4-16.0); MCV 108.1 fL (80.0-100.0)
[2019-11-29 10:59] LABS: Platelet Count 69 k/uL (150-450)
[2019-11-29 11:12] LABS: Albumin 2.1 g/dL (3.5-5.0); Calcium 8.3 mg/dL (8.4-10.2); Potassium 4.9 mmol/L (3.5-5.1)
[2019-11-29 11:30] LABS: Eosinophils # (M) 0.12 k/uL (0-0.7); Lymphocytes # (M) 0.71 k/uL (1.0-4.8); Monocytes # (M) 0.47 k/uL (0-1.0); Neutrophils % (M) 89 %; Nucleated Red Blood Cells 0 /100 WBC (0-0); Total Cells Counted 100
--- NOTE | 2019-11-29 17:03 | PN ---
PROGRESS NOTE Patient is seen for follow up for acute kidney injury on top of chronic kidney disease. The patient is awake, comfortable. She is not in any acute distress. She is confused. She has a An catheter. Renal function is fairly stable with creatinine staying at about 2.3-2.5 mg/dL. PHYSICAL EXAMINATION: On examination today, blood pressure 117/51, heart rate 68 per minute, patient is afebrile. Examination of the heart S1, S2. Examination of lungs, decreased breath sounds at bases. Abdomen is soft, nontender. Examination of lower extremities edema 1+ bilaterally with chronic skin changes noted. [employer] exam shows patient is confused. She is moving all four extremities. LABS: Show sodium of 136, potassium 4.9, chloride 102, CO2 is 29, BUN 71, creatinine 2.56, hemoglobin 8.1 g/dL. ASSESSMENT: 1. Acute kidney injury, mostly cardiorenal, renal function fairly stable, creatinine ranging 2.3-2.5. 2. Chronic kidney disease stage 3B to 4 secondary to nephrosclerosis, cardiorenal syndrome. Baseline creatinine 1.4-2. 3. Acute on chronic diastolic congestive heart failure. 4. Anemia of chronic disease maintained on Aranesp. Hemoglobin was down to 6 yesterday. No active bleeding noted. Hemoglobin today is at 8.1 g/dL. Patient did receive a unit of packed RBCs. PLAN: Continue with oral Lasix. Overall prognosis is guarded. Consider hospice care. MMODL / IJN: [id number] /
[2019-11-29] MEDS: SODIUM CHLORIDE 0.9% 500 ML 500 ML IV SCH (17:31)
--- NOTE | 2019-11-30 03:42 | PN ---
PROGRESS NOTE A 74-year-old white female who has hepatic encephalopathy, chronic anemia. Hemoglobin was up to 8.1 after 1 unit of blood. Wait and see if she is going to go to a rehab center versus on hospice palliative. As we stabilized the best we can, she will need an occasional transfusion. She has chronic renal disease, chronic liver disease, hepatic renal disease, protein calorie malnutrition, chronic esophageal varicocele bleeding of the GI tract. PSYCH: She was giving appropriate answers. She was in and out of consciousness. CARDIOVASCULAR: S1, S2. GI: Soft. HEMATOLOGY: Negative Homans. PSYCH: Fair mood and affect. ASSESSMENT: 1. Hepatic renal syndrome. 2. Hepatic insufficiency. 3. Cirrhosis. Prognosis guarded. Continue Xifaxan and lactulose. Putting the rectal system back in as she has got decubitus wounds that she will need to wear a rectal system for stools on discharge. MMODL / IJN: [id number] /
[2019-11-30] MEDS: LEVOTHYROXINE 25 MCG TAB PO SCH (05:18)
[2019-11-30 07:36] LABS: Anisocytosis Moderate; HCT 25.8 % (34.0-46.0); HGB 7.8 gm/dL (11.4-16.0); Hypochromasia Marked; MCH 32.8 pg (25.0-35.0); MCHC 30.4 g/dL (31.0-37.0); MCV 108.1 fL (80.0-100.0); Macrocytosis Marked; Mean Platelet Volume 11.7; Poikilocytosis Slight; RBC 2.39 m/uL (3.80-5.40); RDW 23.1 % (11.5-15.5); WBC 9.5 k/uL (3.8-10.6)
[2019-11-30] MEDS: PANTOPRAZOLE 40 MG TABLET PO SCH ×2 (07:39→17:19)
[2019-11-30] MEDS: FERROUS SULFATE 325 MG TAB PO SCH ×2 (07:39→17:19)
[2019-11-30] MEDS: FUROSEMIDE 40 MG TAB PO SCH ×2 (07:39→17:18)
[2019-11-30 07:40] LABS: Platelet Count 66 k/uL (150-450)
[2019-11-30] MEDS: MIDODRINE 5 MG TAB PO SCH ×3 (07:40→17:20)
[2019-11-30] MEDS: ESCITALOPRAM 10 MG TAB PO SCH (07:40)
[2019-11-30] MEDS: MEMANTINE 5 MG TAB PO SCH ×2 (07:40→18:20)
[2019-11-30] MEDS: PROPRANOLOL 10 MG TAB PO SCH ×3 (07:40→17:20)
[2019-11-30] MEDS: LACTULOSE 20 GM/30 ML CUP PO SCH ×2 (07:41→20:19)
[2019-11-30] MEDS: COLLAGENASE 250 UNIT/GM OINTMENT 30 GM TUBE TOPICAL SCH (07:42)
[2019-11-30] MEDS: FLOVENT INHALATION SCH ×2 (07:48→19:28)
[2019-11-30 07:59] LABS: Calcium 8.3 mg/dL (8.4-10.2); Potassium 4.9 mmol/L (3.5-5.1); Total Bilirubin 1.2 mg/dL (0.2-1.3); Total Protein 6.7 g/dL (6.3-8.2)
[2019-11-30 08:20] LABS: Eosinophils # (M) 0.19 k/uL (0-0.7); Lymphocytes # (M) 0.76 k/uL (1.0-4.8); Monocytes # (M) 0.38 k/uL (0-1.0); Neutrophils # (M) 8.08 k/uL (1.3-7.7); Neutrophils % (M) 85 %; Nucleated Red Blood Cells 0 /100 WBC (0-0); Total Cells Counted 100
[2019-11-30 08:21] LABS: Rouleaux Present
[2019-11-30] MEDS: SODIUM CHLORIDE 0.9% 500 ML 500 ML IV SCH (11:39)
--- NOTE | 2019-11-30 14:06 | P.PN ---
Subjective Progress Note Date: 11/30/19 This is a 74-year-old female admitted with hepatic encephalopathy, chronic anemia and multiple other medical issues. Patient had been on palliative care, apparently discontinued as per family yesterday. Patient is awaiting to return to [facility] rehab pending negative coronavirus testing; last coronavirus test was 11/23 negative. Objective - Vital Signs Vital signs: Vital Signs Temp 97.5 F L 11/30/19 12:10 Pulse 66 11/30/19 12:10 Resp 18 11/30/19 12:10 BP 114/56 11/30/19 12:10 Pulse Ox 99 11/30/19 12:10 Intake & Output 11/29/19 11/30/19 11/30/19 18:59 06:59 18:59 Intake Total 100 Output Total 675 600 Balance -575 -600 Weight 78.6 kg Intake: Oral 100 Output: Urine 475 600 Uretheral (An) 475 Stool 200 Other: Voiding Method Indwelling Catheter Indwelling Catheter Indwelling Catheter # Bowel Movements 1 - Exam PHYSICAL EXAM: VITAL SIGNS: As above GENERAL: Sitting up in chair, no acute distress HEENT: Conjunctivae normal. eyes normal. NECK: No JVD. No thyroid enlargement. No LNs CARDIOVASCULAR: S1, S2 regular.. No murmur RESPIRATION: Breath sounds diminished in the bases. No rhonchi or crackles. No bronchial breathing. ABDOMEN: Soft, nontender . No guarding. no masses palpable. Bowel sounds heard. LEGS: No edema. no swelling PSYCHIATRY: Alert and oriented X3, mood and affect normal. NERVOUS SYSTEM: Cranial N 2-12 grossly normal. Moves all 4 limbs. Diffuse weakness No focal deficits. Strength and sensation grossly intact.. Skin: Stage II coccyx, chronic, dressing clean dry and intact - Labs CBC & Chem 7: 11/30/19 07:01 11/30/19 07:01 Labs: Abnormal Lab Results - Last 24 Hours (Table) 11/30/19 11/30/19 Range/Units 07:01 07:01 RBC 2.39 L (3.80-5.40) m/uL Hgb 7.8 L (11.4-16.0) gm/dL Hct 25.8 L (34.0-46.0) % MCV 108.1 H (80.0-100.0) fL MCHC 30.4 L (31.0-37.0) g/dL RDW 23.1 H (11.5-15.5) % Plt Count 66 L (150-450) k/uL Neutrophils # (Manual) 8.08 H (1.3-7.7) k/uL Lymphocytes # (Manual) 0.76 L (1.0-4.8) k/uL Macrocytosis Marked A Carbon Dioxide 31 H (22-30) mmol/L BUN 74 H (7-17) mg/dL Creatinine 2.75 H (0.52-1.04) mg/dL Calcium 8.3 L (8.4-10.2) mg/dL AST 56 H (14-36) U/L Alkaline Phosphatase 169 H (38-126) U/L Albumin 2.0 L (3.5-5.0) g/dL Assessment and Plan Assessment: Hepatic renal syndrome Hepatic renal insufficiency Hepatic Cirrhosis Acute metabolic encephalopathy secondary to the above Acute hepatic encephalopathy secondary to underlying chronic alcoholic cirrhosis of the liver. 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 Status post repeat EGD, colonoscopy and capsule study.multiple nonbleeding small bowel angietasia scattered throughout the bowel, suspected to be the cause of the bleeding with no anticoagulation recommended. Thrombocytopenia Advanced COPD Chronic Left great toe wound with foreign body per x-ray, orthopedic surgery following Coccyx wound stage II. Gastroesophageal reflux disease Generalized weakness, in a patient with history of chemotherapy induced peripheral neuropathy History of uterine cancer Possible B12 deficiency Ongoing nicotine dependence Hypoalbuminemia with moderate protein calorie malnutrition Restless leg syndrome Hypothyroidism Plan: Continue current medication regime ,monitoring and symptomatic treatment. Continue Xifaxan and lactulose. Maintain diuretics. Close monitoring of renal function. [place] virus testing pending. Discharge planning in progress for [facility] rehab. Plan of care discussed at bedside with daughter. The impression and plan of care has been dictated as directed. : I performed a history and examination of this patient, discussed the same with the dictator. I agree with the dictator's note ,documented as a scribe. Any additional findings or plans will be noted.
[2019-11-30 15:01] VITALS: BMI 28.8
[2019-11-30] MEDS ORDERED: traMADol 50 MG TAB PO SCH (16:00)
[2019-11-30] MEDS: traMADol 50 MG TAB PO PRN (17:19)
[2019-11-30] MEDS: DARBEPOETIN ALFA 60 MCG/0.3 ML SYRINGE SQ SCH (17:27)
--- NOTE | 2019-11-30 18:02 | PN ---
PROGRESS NOTE Patient is seen for followup for acute kidney injury on top of chronic kidney disease. Patient is currently being diuresed. She is maintained on oral Lasix. Renal function fairly stable, but serum creatinine slightly worse over the last 2-3 days, mostly associated with anemia. Blood pressure remains slightly on the lower side. PHYSICAL EXAMINATION: On examination today, blood pressure was 114/56, heart rate of 66 per minute. Patient is afebrile. She is awake, not in any acute distress. Bilateral breath sounds are heard. Abdomen is soft, nontender. Examination of lower extremities shows edema 2+ bilaterally. [employer] ASSIST[employer] TE[employer] exam cannot be assessed. LABS: Labs from today show sodium 137, potassium 4.9, chloride 101. CO2 is 31, BUN 74, creatinine 2.75. ASSESSMENT: 1. Acute kidney injury secondary to severe anemia with recent hemoglobin dropped to 6.1 on 11/28/2019. Patient remains on p.o. Lasix. She has significant lower extremity edema. I will continue with the Lasix. Blood pressure is on the lower side, but patient is maintained on midodrine as well. No nephrotoxic agents on board and patient has an indwelling An catheter. 2. Chronic kidney disease, stage 3B to 4, baseline creatinine 1.5 to 2 mg/dL, mostly cardiorenal versus nephrosclerosis. 3. Anemia of chronic disease. No active bleeding noted, status post one unit packed RBCs. Maintained on Aranesp. PLAN: Overall prognosis is guarded. Consider hospice care. MMODL / IJN: [id number] /
[2019-12-01] MEDS: traMADol 50 MG TAB PO PRN (03:01)
[2019-12-01] MEDS: LEVOTHYROXINE 25 MCG TAB PO SCH (05:52)
[2019-12-01] MEDS: FLOVENT INHALATION SCH ×2 (07:37→19:07)
--- NOTE | 2019-12-01 09:00 | P.DS ---
Providers Date of admission: 11/13/19 19:29 Expected date of discharge: 12/01/19 Attending physician: Bebeto Davila Consults: 11/13/19 19:27 Consult Physician Routine Consulting Provider: Andres Helton Consult Reason/Comments: chf Do you want consulting provider notified?: Yes 11/15/19 10:08 Consult Physician Routine Consulting Provider: Iesha Moseley Consult Reason/Comments: renal insufficiency Do you want consulting provider notified?: Yes Primary care physician: [facility] Hospital Course: Final Diagnoses: Hepatic renal syndrome Hepatic renal insufficiency Hepatic Cirrhosis Acute metabolic encephalopathy secondary to the above Acute hepatic encephalopathy secondary to underlying chronic alcoholic cirrhosis of the liver. 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 Status post repeat EGD, colonoscopy and capsule study.multiple nonbleeding small bowel angietasia scattered throughout the bowel, suspected to be the cause of the bleeding with no anticoagulation recommended. Thrombocytopenia Advanced COPD Chronic Left great toe wound with foreign body per x-ray, orthopedic surgery following Coccyx wound stage II. Gastroesophageal reflux disease Generalized weakness, in a patient with history of chemotherapy induced peripheral neuropathy History of uterine cancer Possible B12 deficiency Ongoing nicotine dependence Hypoalbuminemia with moderate protein calorie malnutrition Restless leg syndrome Hypothyroidism Hospital course:This is a 74-year-old female admitted with hepatic encephalopathy, chronic anemia and multiple other medical issues. Patient had been on palliative care, apparently discontinued as per family yesterday. Patient is awaiting to return to [facility] subacute rehab pending negative coronavirus testing; last coronavirus test was 11/23 negative. Significant clinical improvement. Tested negative for coronavirus. Cleared by all consults for discharge. Patient will be discharged to [facility] subacute rehab today in a stable condition with guarded prognosis pending authorization. The impression and plan of care has been dictated as directed. : I performed a history and examination of this patient, discussed the same with the dictator. I agree with the dictator's note ,documented as a scribe. Any additional findings or plans will be noted. Patient Condition at Discharge: Stable Plan - Discharge Summary Discharge Rx Participant: No New Discharge Prescriptions: New Lactulose [Cephulac] 20 gm PO BID ml Furosemide [Lasix] 40 mg PO BID@0900,1600 tab Continue Ferrous Sulfate [Feosol] 325 mg PO BID@0800,1700 Levothyroxine Sodium [Synthroid] 25 mcg PO DAILY@0600 Donepezil [Aricept] 10 mg PO HS@2100 Escitalopram [Lexapro] 10 mg PO DAILY@0800 Cetirizine HCl [Zyrtec] 10 mg PO DAILY@0800 Vitamin B Complex 1 cap PO DAILY@1700 Propranolol [Inderal] 10 mg PO TID@0800,1200,1700 Pantoprazole Sodium [Protonix] 40 mg PO BID@0800,1700 Liquacel 30 ml PO BID@0800,1700 Saccharomyces Boulardii 250 mg PO DAILY@1700 Midodrine [ProAmatine] 5 mg PO TID@0800,1200,1700 Beclomethasone Dip 80 Mcg/Puff [Qvar 80 mcg] 1 puff INHALATION RT-BID Furosemide [Lasix] 20 mg PO DAILY@1700 Furosemide [Lasix] 40 mg PO DAILY@0600 Collagenase [Santyl] 1 applic TOPICAL DAILY Magnesium Hydroxide [Milk of Magnesia Concentrate] 2,400 mg PO DAILY PRN ml PRN Reason: constipation lasting 3 days Memantine [Namenda] 5 mg PO BID@0800,1700 tab rOPINIRole HCL [Requip] 0.5 mg PO HS@2100 tab Acetaminophen Tab [Tylenol] 650 mg PO Q4H PRN tab PRN Reason: GENERAL DISCOMFORT Epoetin Chilo [Epogen] 1,000 unit IM FR PRN PRN Reason: HGB<10.5 Lactose-Reduced Food [Ensure Plus] 1 can PO TID bisacodyL [Dulcolax] 10 mg RECTAL DAILY PRN PRN Reason: Constipation Na Phos,M-B/Na Phos,Di-Ba [Fleet Adult] 133 ml RECTAL DAILY PRN PRN Reason: Constipation Triamcinolone 0.1% Cream [Kenalog 0.1% Cream] 1 applic TOPICAL QID PRN PRN Reason: groin traMADol HCl [Ultram] 50 mg PO BID PRN #6 tab PRN Reason: Pain Discontinued Diphenoxylate HCl/Atropine [Lomotil 2.5-0.025 mg Tablet] 1 tab PO Q6H amLODIPine [Norvasc] 5 mg PO DAILY@0800 Gabapentin [Neurontin] 200 mg PO BID@0800,2100 cap Discharge Medication List Ferrous Sulfate [Feosol] 325 mg PO BID@0800,1700 10/29/16 [History] Donepezil [Aricept] 10 mg PO HS@2100 11/07/17 [History] Levothyroxine Sodium [Synthroid] 25 mcg PO DAILY@0600 11/07/17 [History] Cetirizine HCl [Zyrtec] 10 mg PO DAILY@0800 01/14/19 [History] Escitalopram [Lexapro] 10 mg PO DAILY@0800 01/14/19 [History] Vitamin B Complex 1 cap PO DAILY@169909/28/19 [History] Liquacel 30 ml PO BID@0800,17010/21/19 [History] Pantoprazole Sodium [Protonix] 40 mg PO BID@0800,17010/21/19 [History] Propranolol [Inderal] 10 mg PO TID@0800,1200,169910/21/19 [History] Saccharomyces Boulardii 250 mg PO DAILY@169910/21/19 [History] Beclomethasone Dip 80 Mcg/Puff [Qvar 80 mcg] 1 puff INHALATION RT-BID 11/06/19 [History] Collagenase [Santyl] 1 applic TOPICAL DAILY 11/06/19 [History] Furosemide [Lasix] 20 mg PO DAILY@17011/06/19 [History] Furosemide [Lasix] 40 mg PO DAILY@0611/06/19 [History] Midodrine [ProAmatine] 5 mg PO TID@0800,1200,1700 11/06/19 [History] Acetaminophen Tab [Tylenol] 650 mg PO Q4H PRN tab 11/09/19 [Rx] Magnesium Hydroxide [Milk of Magnesia Concentrate] 2,400 mg PO DAILY PRN ml 11/09/19 [Rx] Memantine [Namenda] 5 mg PO BID@0800,1700 tab 11/09/19 [Rx] rOPINIRole HCL [Requip] 0.5 mg PO HS@2100 tab 11/09/19 [Rx] Epoetin Chilo [Epogen] 1,000 unit IM FR PRN 11/13/19 [History] Lactose-Reduced Food [Ensure Plus] 1 can PO TID 11/13/19 [History] Na Phos,M-B/Na Phos,Di-Ba [Fleet Adult] 133 ml RECTAL DAILY PRN 11/13/19 [History] Triamcinolone 0.1% Cream [Kenalog 0.1% Cream] 1 applic TOPICAL QID PRN 11/13/19 [History] bisacodyL [Dulcolax] 10 mg RECTAL DAILY PRN 11/13/19 [History] Furosemide [Lasix] 40 mg PO BID@0900,1600 tab 12/01/19 [Rx] Lactulose [Cephulac] 20 gm PO BID ml 12/01/19 [Rx] traMADol HCl [Ultram] 50 mg PO BID PRN #6 tab 12/01/19 [Rx] Follow up Appointment(s)/Referral(s): [facility] [NON-STAFF] - Bebeto Davila MD [Primary Care Provider] - 3 Days Artem Gomez DO [STAFF PHYSICIAN] - 1 Week Activity/Diet/Wound Care/Special Instructions: [facility] as per nephrology Palliative score of 6 CBC, BMP in 3 days Discharge Disposition: TRANSFER TO SNF/ECF
[2019-12-01] MEDS: LACTULOSE 20 GM/30 ML CUP PO SCH (09:14)
[2019-12-01] MEDS: FUROSEMIDE 40 MG TAB PO SCH (09:14)
[2019-12-01] MEDS: PANTOPRAZOLE 40 MG TABLET PO SCH ×2 (09:14→17:06)
[2019-12-01] MEDS: FERROUS SULFATE 325 MG TAB PO SCH ×2 (09:14→17:06)
[2019-12-01] MEDS: MIDODRINE 5 MG TAB PO SCH ×3 (09:14→17:06)
[2019-12-01] MEDS: MEMANTINE 5 MG TAB PO SCH ×2 (09:15→17:06)
[2019-12-01] MEDS: ESCITALOPRAM 10 MG TAB PO SCH (09:15)
[2019-12-01] MEDS: PROPRANOLOL 10 MG TAB PO SCH ×3 (09:16→17:06)
[2019-12-01] MEDS: COLLAGENASE 250 UNIT/GM OINTMENT 30 GM TUBE TOPICAL SCH (09:17)
[2019-12-01] MEDS: ACETAMINOPHEN TAB 325 MG TAB PO PRN (09:27)
--- NOTE | 2019-12-01 10:34 | P.PN ---
Subjective Patient is seen in follow-up for acute kidney injury on chronic kidney disease. Creatinine 2.75 as of yesterday. Maintained on oral Lasix 40 mg twice daily. Has edema of the lower extremities. Denies chest pain or shortness of breath. Currently on 3 L nasal cannula. No vomiting or diarrhea. Remains quite lethargic. No changes overnight. Vital signs are stable. General: The patient appeared well nourished and normally developed. HEENT: Head exam is unremarkable. Neck is without jugular venous distension. LUNGS: Breath sounds decreased. HEART: Rate and Rhythm are regular. ABDOMEN: Soft, nontender. EXTREMITITES: 2+ edema. Objective - Vital Signs Vital signs: Vital Signs Temp 97.7 F 12/01/19 05:00 Pulse 63 12/01/19 05:00 Resp 20 12/01/19 05:00 BP 115/63 12/01/19 05:00 Pulse Ox 96 12/01/19 05:00 Intake & Output 11/30/19 12/01/19 12/01/19 18:59 06:59 18:59 Intake Total 200 Output Total 300 Balance -100 Weight 78.6 kg 79.5 kg Intake: Oral 200 Output: Urine 300 Other: Voiding Method Indwelling Catheter Indwelling Catheter # Bowel Movements 0 1 1 - Labs CBC & Chem 7: 11/30/19 07:01 11/30/19 07:01 Assessment and Plan Plan: Assessment: 1. Acute kidney injury mostly prerenal secondary to cardiorenal syndrome. Creatinine 2.75 as of yesterday. 2. 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 3. Acute on chronic diastolic CHF. 4. Anemia of chronic kidney disease maintained on Aranesp. Status post blood transfusion on November 27. 5. Volume overload. Plan: I will change Lasix to Demadex 40 mg twice daily. Repeat BMP and magnesium level 2-3 days postdischarge. Potential discharge to ECF today. Overall prognosis guarded.
[2019-12-01] MEDS: SODIUM CHLORIDE 0.9% 500 ML 500 ML IV SCH (12:51)
[2019-12-01 13:15] VITALS: BP 104/42; PULSE 57; RESP 15; TEMP 97.4
[2019-12-01] MEDS ORDERED: TORSEMIDE 20 MG TAB PO SCH (21:00)
== END 2019-12-01 19:32 | DRG 291 ==
LOC: EC 15:58 → 3SCARD 19:29 → 4SSUR 11-19 20:50 → 3SCARD 11-19 20:50 → 5NMEDONC 11-27 19:06
PROVIDERS: ADMIT Family Medicine; ATTEND Family Medicine
PROC: 30233N1 Transfusion of Nonautologous Red Blood Cells into Peripheral Vein, Percutaneous Approach (ICD-10-PCS; principal; 2019-11-28)
DX: I13.0 Hypertensive heart and chronic kidney disease with heart failure and stage 1 through stage 4 chronic kidney disease, or unspecified chronic kidney disease (principal); I50.33 Acute on chronic diastolic (congestive) heart failure; K76.7 Hepatorenal syndrome; I85.11 Secondary esophageal varices with bleeding; G93.41 Metabolic encephalopathy; K55.21 Angiodysplasia of colon with hemorrhage; E44.0 Moderate protein-calorie malnutrition; N17.9 Acute kidney failure, unspecified; K76.6 Portal hypertension; N18.4 Chronic kidney disease, stage 4 (severe); K70.40 Alcoholic hepatic failure without coma; Z20.828 Contact with and (suspected) exposure to other viral communicable diseases; Z51.5 Encounter for palliative care; Z66 Do not resuscitate; D69.6 Thrombocytopenia, unspecified; L89.152 Pressure ulcer of sacral region, stage 2; D63.1 Anemia in chronic kidney disease; G62.0 Drug-induced polyneuropathy; I95.9 Hypotension, unspecified; E86.0 Dehydration; F03.90 Unspecified dementia, unspecified severity, without behavioral disturbance, psychotic disturbance, mood disturbance, and anxiety; E11.22 Type 2 diabetes mellitus with diabetic chronic kidney disease; K70.30 Alcoholic cirrhosis of liver without ascites; K21.9 Gastro-esophageal reflux disease without esophagitis; J44.9 Chronic obstructive pulmonary disease, unspecified; I48.91 Unspecified atrial fibrillation; E78.5 Hyperlipidemia, unspecified; M19.90 Unspecified osteoarthritis, unspecified site; F41.9 Anxiety disorder, unspecified; R40.2362 Coma scale, best motor response, obeys commands, at arrival to emergency department; R40.2142 Coma scale, eyes open, spontaneous, at arrival to emergency department; R40.2242 Coma scale, best verbal response, confused conversation, at arrival to emergency department; F10.11 Alcohol abuse, in remission; E03.9 Hypothyroidism, unspecified; E87.6 Hypokalemia; E66.9 Obesity, unspecified; D50.0 Iron deficiency anemia secondary to blood loss (chronic); G25.81 Restless legs syndrome; E53.8 Deficiency of other specified B group vitamins; F17.210 Nicotine dependence, cigarettes, uncomplicated; S90.452A Superficial foreign body, left great toe, initial encounter; K59.00 Constipation, unspecified; D73.1 Hypersplenism; F32.9 Major depressive disorder, single episode, unspecified; T45.1X5A Adverse effect of antineoplastic and immunosuppressive drugs, initial encounter; X58.XXXA Exposure to other specified factors, initial encounter; Z68.29 Body mass index [BMI] 29.0-29.9, adult; Z71.3 Dietary counseling and surveillance; Z79.890 Hormone replacement therapy; Z79.899 Other long term (current) drug therapy; Z86.73 Personal history of transient ischemic attack (TIA), and cerebral infarction without residual deficits; Z92.21 Personal history of antineoplastic chemotherapy; Z85.42 Personal history of malignant neoplasm of other parts of uterus; Z90.710 Acquired absence of both cervix and uterus; Z98.890 Other specified postprocedural states; Z98.42 Cataract extraction status, left eye; Z98.41 Cataract extraction status, right eye; Z87.19 Personal history of other diseases of the digestive system; Z80.9 Family history of malignant neoplasm, unspecified
CPT/HCPCS: 36415; 70450; 71046; 80048; 80053; 81003; 82140; 83540; 83550; 83735; 83880; 84484; 85025; 85027; 85610; 85730; 86850; 86860; 86870; 86880; 86900; 86901; 86920; 86971; 93005; 93306; 94640; 94760; 96374; 99285

== ENCOUNTER 2020-01-15 20:55 | Emergency (ER) | payer MEDICARE, OTHER ==
[2020-01-15 21:22] VITALS: BP 148/60; PULSE 87; RESP 18; TEMP 97.8
[2020-01-15] MEDS ORDERED: LORazepam 2 MG/ML INJ IV STA (22:04)
[2020-01-15] MEDS ORDERED: MORPHINE SULFATE 4 MG/ML SYRINGE IVP STA (22:04)
--- NOTE | 2020-01-15 22:08 | ED ---
Female Urogenital HPI - General Chief complaint: Urogenital Stated complaint: Urine Retention Time Seen by Provider: 01/15/20 21:20 Source: EMS Mode of arrival: EMS Limitations: no limitations - History of Present Illness Initial comments: Patient is 74-year-old female with multiple complex no conditions who presents to the emergency department from [facility]. Patient is on hospice. Facility was concerned that the patient's An was not draining. She did have some abdominal distention and therefore she was transferred to her facility for full evaluation. Daughter is at bedside and makes medical decisions. States her mom has decompensated in the past day. Her abdomen has become more swollen. She does have a history of ascites. She receives Ativan and morphine for pain control. Reports that her mentation has decreased. Denies any known fevers or chills. The remainder of the HPI is limited because the patient's current condition MD Complaint: vaginal bleeding - Related Data Home Medications Medication Instructions Recorded Confirmed Ferrous Sulfate [Feosol] 325 mg PO BID@0800,1700 10/29/16 11/13/19 Donepezil [Aricept] 10 mg PO HS@2100 11/07/17 11/13/19 Levothyroxine Sodium [Synthroid] 25 mcg PO DAILY@0600 11/07/17 11/13/19 Cetirizine HCl [Zyrtec] 10 mg PO DAILY@0800 01/14/19 11/13/19 Escitalopram [Lexapro] 10 mg PO DAILY@0800 01/14/19 11/13/19 Vitamin B Complex 1 cap PO DAILY@1700 09/28/19 11/13/19 Liquacel 30 ml PO BID@0800,1700 10/21/19 11/13/19 Pantoprazole Sodium [Protonix] 40 mg PO BID@0800,1700 10/21/19 11/13/19 Propranolol [Inderal] 10 mg PO TID@0800,1200,1700 10/21/19 11/13/19 Saccharomyces Boulardii 250 mg PO DAILY@169910/21/19 11/13/19 Beclomethasone Dip 80 Mcg/Puff 1 puff INHALATION RT-BID 11/06/19 11/13/19 [Qvar 80 mcg] Collagenase [Santyl] 1 applic TOPICAL DAILY 11/06/19 11/13/19 Midodrine [ProAmatine] 5 mg PO TID@0800,1200,1700 11/06/19 11/13/19 Epoetin Chilo [Epogen] 1,000 unit IM FR PRN 11/13/19 11/13/19 Lactose-Reduced Food [Ensure Plus] 1 can PO TID 11/13/19 11/13/19 Na Phos,M-B/Na Phos,Di-Ba [Fleet 133 ml RECTAL DAILY PRN 11/13/19 11/13/19 Adult] Triamcinolone 0.1% Cream [Kenalog 1 applic TOPICAL QID PRN 11/13/19 11/13/19 0.1% Cream] bisacodyL [Dulcolax] 10 mg RECTAL DAILY PRN 11/13/19 11/13/19 Previous Rx's Medication Instructions Recorded Acetaminophen Tab [Tylenol] 650 mg PO Q4H PRN tab 11/09/19 Magnesium Hydroxide [Milk of 2,400 mg PO DAILY PRN ml 11/09/19 Magnesia Concentrate] Memantine [Namenda] 5 mg PO BID@0800,1700 tab 11/09/19 rOPINIRole HCL [Requip] 0.5 mg PO HS@2100 tab 11/09/19 Lactulose [Cephulac] 20 gm PO BID ml 12/01/19 Torsemide [Demadex] 40 mg PO BID tab 12/01/19 traMADol HCl [Ultram] 50 mg PO BID PRN #6 tab 12/01/19 Allergies Allergy/AdvReac Type Severity Reaction Status Date / Time No Known Allergies Allergy Verified 11/06/19 18:11 Review of Systems ROS Statement: Those systems with pertinent positive or pertinent negative responses have been documented in the HPI. ROS Other: All systems not noted in ROS Statement are negative. Past Medical History Past Medical History: Atrial Fibrillation, Cancer, Heart Failure, COPD, CVA/TIA, GERD/Reflux, GI Bleed, Hyperlipidemia, Hypertension, Osteoarthritis (OA) Additional Past Medical History / Comment(s): hx. uterine cancer, chemo 6 years ago, TIA several yrs. ago-forgetful, neuropathy feet & legs & hands, ANEMIA History of Any Multi-Drug Resistant Organisms: None Reported Past Surgical History: Hysterectomy, Tonsillectomy Additional Past Surgical History / Comment(s): COLONOSCOPY. EGD. BILAT CA TARACTS REMOVED Past Anesthesia/Blood Transfusion Reactions: No Reported Reaction Past Psychological History: Anxiety, Depression Smoking Status: Former smoker Past Alcohol Use History: None Reported Past Drug Use History: None Reported - Past Family History Mother Family Medical History: Cancer Father History Unknown: Yes Family Medical History: Cancer Brother(s) Family Medical History: Cancer General Exam Limitations: no limitations Course Vital Signs 01/15/20 21:18 Temperature 97.8 F Pulse Rate 87 Respiratory 18 Rate Blood Pressure 148/60 O2 Sat by Pulse 97 Oximetry Medical Decision Making - Medical Decision Making Upon arrival the patient is placed into room 1. A thorough history and physical exam was performed. Patient's An is manipulated and straining at this time. She is bladder scans and found to have significant ascites. I did discuss the diagnosis, differential and treatment options with the patient's daughter. She requests that she be made comfortable at this time. Does not want any laboratory studies or imaging performed. The patient was given 5 mg of oral morphine and 1 mg of Ativan. [facility]. Family agreed with this treatment plan. Patient was then discharged back to her ECF in stable condition Disposition Clinical Impression: Urinary retention, Chronic kidney disease Disposition: OTHER INSTITUTION NOT DEFINED Condition: Serious Instructions (If sedation given, give patient instructions): An Catheter Placement and Care (ED) Is patient prescribed a controlled substance at d/c from ED?: No Referrals: Bebeto Davila MD [Primary Care Provider] - 1-2 days Time of Disposition: 22:08
[2020-01-15] MEDS ORDERED: LORazepam 1 MG TAB PO STA (22:13)
[2020-01-15] MEDS ORDERED: MORPHINE CONC SOLN 10mg/0.5mL ORAL SYRG PO ONE (22:45)
== END 2020-01-15 23:31 | disposition other institution (70) ==
LOC: EC 20:55
DX: I13.0 Hypertensive heart and chronic kidney disease with heart failure and stage 1 through stage 4 chronic kidney disease, or unspecified chronic kidney disease (principal); N18.9 Chronic kidney disease, unspecified; I50.9 Heart failure, unspecified; F41.9 Anxiety disorder, unspecified; F32.9 Major depressive disorder, single episode, unspecified; J44.9 Chronic obstructive pulmonary disease, unspecified; K21.9 Gastro-esophageal reflux disease without esophagitis; E78.5 Hyperlipidemia, unspecified; Z79.52 Long term (current) use of systemic steroids; Z79.899 Other long term (current) drug therapy; Z87.891 Personal history of nicotine dependence; Z90.710 Acquired absence of both cervix and uterus; Z98.42 Cataract extraction status, left eye; Z98.41 Cataract extraction status, right eye; Z85.42 Personal history of malignant neoplasm of other parts of uterus; Z92.21 Personal history of antineoplastic chemotherapy; Z86.73 Personal history of transient ischemic attack (TIA), and cerebral infarction without residual deficits
CPT/HCPCS: 99284